=== PATIENT | male | born 1945 | race Caucasian/White ===

== ENCOUNTER 2018-11-04 22:39 | Inpatient (IN) | payer OTHER ==
--- NOTE | 2018-11-04 23:49 | PDOC ---
History of Present Illness - General Chief Complaint: Blood Sugar Problem Stated Complaint: DIABETIC Time Seen by Provider: 11/04/18 23:11 History Source: Family Exam Limitations: Other (AMS) - History of Present Illness Initial Comments: 11/04/18 23:48 Pt is a 73yo M with PMH of IDDM, Cirrhosis, Varicies, CHF, COPD, HTN presenting to ED with AMS and hyperglycemia today. Per son and step son (who were in [place] over the weekend) pt did not recognize them and seemed confused. They also noticed a tremor in the L hand. Sons say that pt is usually AOx3. They checked the blood sugar and it was over 400. Pt lives at home with a nurse in the unit who takes care of him. Pt is also coughing but that is baseline (pt still smokes). PMD: Lloyd? PMH: see hpi PSH: Meds: list given to EMS, however not provided here. Allergies: nkda Past History - Past Medical History Allergies/Adverse Reactions: Allergies Allergy/AdvReac Type Severity Reaction Status Date / Time No Known Allergies Allergy Verified 11/04/18 23:23 Home Medications: Ambulatory Orders Insulin (Levemir) [Levemir Flexpen -] 20 units SQ HS #30 pen 05/22/14 Furosemide [Lasix -] 40 mg PO DAILY 05/28/14 Amlodipine Besylate [Norvasc -] 5 mg PO DAILY 09/06/14 Insulin Lispro [Humalog] 6 unit SQ AC 09/06/14 Nadolol [Corgard -] 40 mg PO TID 09/06/14 Neomycin Sulfate 300 mg PO QID 09/06/14 Ramipril 5 mg PO DAILY 09/06/14 Spironolactone 50 mg PO BID 09/06/14 Zolpidem Tartrate [Ambien] 5 mg PO HS 09/06/14 Gentamicin [Gentamicin 100 mg Premixed Ivpb] 140 mg IV DAILY 7 Days ml Anemia: Yes Asthma: No Cancer: No Cardiac Disorders: Yes (H/O FL) CVA: No COPD: Yes (EMPHYSEMA) CHF: No Dementia: No Diabetes: Yes (NIDDM) GI Disorders: Yes (ESOPHAGEAL VARICES) Disorders: (ESBL IN URINE) HTN: No Hypercholesterolemia: No Liver Disease: Yes (CIRRHOSIS) Seizures: No Thyroid Disease: No - Surgical History Abdominal Surgery: Yes (ESOPHAGEAL SX, HERNIA) Appendectomy: No Cardiac Surgery: No Cholecystectomy: No Lung Surgery: No Neurologic Surgery: No Orthopedic Surgery: No - Immunization History Immunization Up to Date: Yes - Suicide/Smoking/Psychosocial Hx Smoking Status: Yes Smoking History: Never smoked Have you smoked in the past 12 months: No Number of Cigarettes Smoked Daily: 10 If you are a former smoker, when did you quit?: smokes daily Information on smoking cessation initiated: No 'Breaking Loose' booklet given: 09/07/14 Hx Alcohol Use: No Drug/Substance Use Hx: No Substance Use Type: Alcohol Hx Substance Use Treatment: (STAFF UNSURE) Review of Systems - Review of Systems Able to Perform ROS?: No *Physical Exam - Vital Signs Last Vital Signs Temp Pulse Resp BP Pulse Ox 98.1 F 62 18 112/60 98 11/04/18 22:39 11/04/18 22:39 11/04/18 22:39 11/04/18 22:39 11/04/18 22:39 - Physical Exam General Appearance: Yes: Nourished, Appropriately Dressed, Disheveled. No: Apparent Distress HEENT: positive: EOMI, JASSI, Normal ENT Inspection, Other (edentulous) Neck: positive: Trachea midline, Supple. negative: Lymphadenopathy (R), Lymphadenopathy (L) Respiratory/Chest: positive: Lungs Clear, Normal Breath Sounds. negative: Crackles, Wheezing Cardiovascular: positive: Regular Rhythm, Regular Rate, S1, S2. negative: Edema , JVD, Murmur Vascular Pulses: Carotid (R): 2+, Carotid (L): 2+, Dorsalis-Pedis (R): 2+, Doralis-Pedis (L): 0 Gastrointestinal/Abdominal: positive: Normal Bowel Sounds, Soft. negative: Tender, Protuberent, Distended, Guarding, Rebound, Tenderness, Mass Musculoskeletal: negative: CVA Tenderness Extremity: positive: Normal Capillary Refill. negative: Swelling, Calf Tenderness Integumentary: positive: Normal Color, Dry, Warm Neurologic: positive: on air host II-XII NML intact, Alert, Normal Mood/Affect, Normal Response, Motor Strength 5/5, Other (L hand tremor). negative: Fully Oriented ED Treatment Course - LABORATORY CBC & Chemistry Diagram: 11/04/18 23:50 11/04/18 23:50 - ADDITIONAL ORDERS Additional order review: Laboratory Results 11/04/18 23:15 POC Glucometer 375 11/04/18 23:15 POC Glucometer 375 - RADIOLOGY Radiology Studies Ordered: Category Date Time Status HEAD CT WITHOUT CONTRAST [CT] Stat CT Scan 11/04/18 23:47 Ordered Medical Decision Making - Medical Decision Making 11/05/18 00:59 Pt is a 73yo M with PMH of IDDM, Cirrhosis, Varicies, CHF, COPD, HTN presenting to ED with AMS and hyperglycemia today. Per son and step son (who were in [place] over the weekend) pt did not recognize them and seemed confused. They also noticed a tremor in the L hand. Sons say that pt is usually AOx3. They checked the blood sugar and it was over 400. Pt lives at home with a nurse in the unit who takes care of him. Pt is also coughing but that is baseline (pt still smokes). vitals: wnl PE: ddx includes but not limited to DKA, HHS, HHNK, hepatic encephalopathy, uti, sepsis, metabolic/electrolyte abnormality FSG- 300s -labs, ammonia, acetone -EKG, CT head ekg: LBBB similar to prior ekg 2015. CT head: no acute pathology labs significant for Laboratory Tests 11/04/18 11/04/18 11/04/18 23:50 23:50 23:50 Hgb 10.9 L (baseline) INR Sodium 134 L Creatinine 1.8 H (baseline) Random Glucose 390 H* Total Bilirubin 2.9 H (baseline) Alkaline Phosphatase 234 H Ammonia 139.50 H 11/04/18 23:50 Hgb INR 1.22 H Sodium Creatinine Random Glucose Total Bilirubin Alkaline Phosphatase Ammonia 11/05/18 03:45 Will give insulin 4SQ lactulose. admitted med/surg for hepatic encephalopathy 11/05/18 03:47 *DC/Admit/Observation/Transfer Diagnosis at time of Disposition: Hepatic encephalopathy, Hyperglycemia Altered mental status Qualifiers: Altered mental status type: disorientation Qualified Code(s): R41.0 - Disorientation, unspecified - Discharge Dispostion Condition at time of disposition: Good - Referrals - Patient Instructions - Post Discharge Activity
[2018-11-04 23:59] LABS: BASO % 0.8 % (0-2.0); EOS % 4.1 % (0-4.5); HEMOGLOBIN 10.9 GM/dL (11.7-16.9); LYMPH % 26.2 % (8-40); MCHC 35.1 g/dl (32.0-35.9); MEAN CELL VOLUME 99.6 fl (80-96); MEAN PLT VOLUME 8.6 fl (7.5-11.1); NEUT % 58.9 % (42.8-82.8); PLATELET COUNT 103 K/MM3 (134-434); RBC 3.12 M/mm3 (4.00-5.60); WHITE BLOOD COUNT 5.7 K/mm3 (4.0-10.0)
[2018-11-05 00:21] LABS: INR 1.22 (0.83-1.09); PROTHROMBIN TIME (PATIENT) 14.4 SEC (9.7-13.0)
[2018-11-05 00:24] LABS: ACTIVATED PTT 35.8 SECONDS (25.2-36.5)
[2018-11-05 00:35] LABS: ALBUMIN 3.1 g/dl (3.4-5.0); ALK PHOS 234 U/L (45-117); ANION GAP 8 MMOL/L (8-16); BILIRUBIN,TOTAL 2.9 mg/dL (0.2-1); BLOOD UREA NITROGEN 40 mg/dL (7-18); CALCIUM 8.9 mg/dL (8.5-10.1); CHLORIDE 106 mmol/L (98-107); CO2 19 mmol/L (21-32); CREATININE 1.8 mg/dL (0.55-1.3); MAGNESIUM 1.9 mg/dL (1.8-2.4); PHOSPHOROUS 2.9 mg/dL (2.5-4.9); SGOT/AST 26 U/L (15-37); SGPT/ALT 34 U/L (13-61); SODIUM 134 mmol/L (136-145); TOT PROT 6.5 g/dl (6.4-8.2)
[2018-11-05 00:39] LABS: GLUCOSE,RANDOM 390 mg/dL (74-106)
[2018-11-05] MEDS ORDERED: INSULIN REGULAR HUMAN 100 UNITS/ML *VIAL SQ ONE (00:47)
[2018-11-05] MEDS ORDERED: LACTULOSE 20 GM/30 ML UDC (FOR ORAL USE ONLY) PO ONE (00:47)
[2018-11-05] MEDS ORDERED: INSULIN REGULAR HUMAN 100 UNITS/ML *VIAL ONE (00:57)
[2018-11-05] MEDS ORDERED: LACTULOSE 20 GM/30 ML UDC (FOR ORAL USE ONLY) ONE ×2 (00:57→14:56)
[2018-11-05 01:01] LABS: ACETONE SERUM NEGATIVE (NEGATIVE)
--- NOTE | 2018-11-05 01:04 | PDOC ---
Attending Attestation - Resident Resident Name: KinzaShruthi - ED Attending Attestation I have performed the following: I have examined & evaluated the patient, The case was reviewed & discussed with the resident, I agree w/resident's findings & plan, Exceptions are as noted - HPI HPI: 73 yo M history DM, cirrhosis, CHF, COPD, HTN presents with hyperglycemia and AMS. As per family at bedside, he did not recognize them when they came to visit from [place], which is not his baseline. He has been confused. - Physicial Exam PE: GENERAL: Awake, alert, in no acute distress. Confused HEAD: No signs of trauma EYES: PERRLA, EOMI, sclera anicteric, conjunctiva clear ENT: Auricles normal inspection, hearing grossly normal, nares patent, oropharynx clear without exudates. Moist mucosa NECK: Normal ROM, supple, no lymphadenopathy, JVD, or masses LUNGS: Breath sounds equal, clear to auscultation bilaterally. No wheezes, and no crackles HEART: Regular rate and rhythm, normal S1 and S2, no murmurs, rubs or gallops ABDOMEN: Soft, nontender, normoactive bowel sounds. No guarding, no rebound. No masses EXTREMITIES: Normal range of motion, no edema. No clubbing or cyanosis. No cords, erythema, or tenderness NEUROLOGICAL: Cranial nerves II through XII grossly intact. Speech is clear, but answers questions inappropriately. Motor and sensation intact SKIN: Warm, Dry, normal turgor, no rashes or lesions noted. - Medical Decision Making Pt found to have significantly elevated ammonia and hyperglycemia. Will treat with insulin and lactulose. Admit for hepatic encephalopathy.
--- NOTE | 2018-11-05 02:15 | PN ---
Teaching Attending Note Name of Resident: Joby Sykes ATTENDING PHYSICIAN STATEMENT I saw and evaluated the patient. I reviewed the resident's note and discussed the case with the resident. I agree with the resident's findings and plan as documented. SUBJECTIVE: Patient is a 73 year old man with PMH of Insulin-treated DM, CAD, Tobacco use, ESBL UTI, Liver Cirrhosis, Esophageal Varices, CHF, COPD and HTN presenting to ER with AMS and hyperglycemia today. Per son and step son (who were in [place] over the weekend) he did not recognize them and seemed confused. They also noticed a tremor in the left hand. Sons say that he is usually alert and oriented x 3. They checked the blood sugar and it was over 400. Patient lives at home with a nurse in the unit who takes care of him. No recent history of fever, chills, headache, chest pain, dysuria or sick contacts. OBJECTIVE: Alert and confused Vital Signs Period Temp Pulse Resp BP Sys/Block Pulse Ox Last 24 Hr 98.1 F 62 18 112/60 98 HEENT: No Jaundice, eye redness or discharge, PERRLA, EOMI. Normocephalic, atraumatic. External ears are normal; hearing is grossly impaired. Poor dentition. No nasal discharge. Neck: Supple, nontender. No palpable adenopathy or thyromegaly. No JVD Chest: Good effort. Clear to auscultation and percussion. Heart: Regular. No S3, rub or murmur Abdomen: Obese, not distended, soft, nontender and no HSM. No rebound or guarding. Normal bowel sounds. Ext: Peripheral pulses intact. No leg edema. Skin: Warm and dry. No petechiae or rash. Ecchymosis right forearm. Neuro: Alert. Oriented to person. Confused. Tremulous. CN 2-12 grossly intact. Sensation grossly intact in all four extremities and DTR are symmetric. Unsteady gait. Psych: Appropriate mood and flat affect. Good insight. Home Medications Medication Instructions Recorded Insulin (Levemir) [Levemir Flexpen 20 units SQ HS #30 pen 05/22/14 -] Furosemide [Lasix -] 40 mg PO DAILY 05/28/14 Amlodipine Besylate [Norvasc -] 5 mg PO DAILY 09/06/14 Insulin Lispro [Humalog] 6 unit SQ AC 09/06/14 Nadolol [Corgard -] 40 mg PO TID 09/06/14 Neomycin Sulfate 300 mg PO QID 09/06/14 Ramipril 5 mg PO DAILY 09/06/14 Spironolactone 50 mg PO BID 09/06/14 Zolpidem Tartrate [Ambien] 5 mg PO HS 09/06/14 Gentamicin [Gentamicin 100 mg 140 mg IV DAILY 7 Days ml 09/15/14 Premixed Ivpb] Abnormal Lab Results 11/04/18 11/04/18 11/04/18 23:50 23:50 23:50 RBC 3.12 L Hgb 10.9 L Hct 31.0 L D MCV 99.6 H MCH 35.0 H Plt Count 103 L PT with INR INR Sodium 134 L Carbon Dioxide 19 L BUN 40 H Creatinine 1.8 H Random Glucose 390 H* Total Bilirubin 2.9 H Alkaline Phosphatase 234 H Ammonia 139.50 H Albumin 3.1 L 11/04/18 23:50 RBC Hgb Hct MCV MCH Plt Count PT with INR 14.40 H INR 1.22 H Sodium Carbon Dioxide BUN Creatinine Random Glucose Total Bilirubin Alkaline Phosphatase Ammonia Albumin ASSESSMENT AND PLAN: 1. Hepatic encephalopathy - No obvious precipitating factor. Urinalysis pending. No acute pathology on head CT and CXR shows increased right perihilar interstitial markings (old). Anemia and low platelets are likely sequelae of chronic liver disease. Monitor platelets. EKG shows NSR with first degree AV block and LBBB. Will treat with lactulose 45 ml po q 6 hours and rifaixmin 550 mg po bid. Will implement fall precautions, trend LFTs, monitor electrolytes and avoid dehydration. 2. Hypoalbuminemia - Possibly due to combined effects of malnutrition and inflammation associated with comorbid chronic conditions. Will rule out proteinuria. Will ensure adequate dietary protein intake and also consult information systems coordinator. 3. Uncontrolled DM Not in DKA. Patient got one dose of IV regular insulin in the ER. Will hold the home diabetes drugs and implement sliding scale insulin regimen. Provide comprehensive diabetes care with patient teaching and counseling about the importance of adherence to prescribed diabetes regimen, euglycemia, eye care and foot care. 4. Tobacco Use Counseled on risks associated with tobacco use. We will provide patient all the necessary assistance to facilitate smoking cessation and prescribe Nicotine patch. 5. CKD? - He has risk factors for CKD, but may also have a component of hepatorenal syndrome. Will get urinalysis, phosphate, PTH and kidney sonogram. Consult nephrology and avoid nephrotoxic agents such as NSAIDS, aminoglycosides , contrast dyes and certain Alternative medicine products. 6. Anemia with high MCV - High MCV may signal recent alcohol intake. Anemia likely multifactorial. Do basic anemia work up including serial stool guaiacs, reticulocyte count, iron studies, Vitamin B12 and folate levels. 7. Obesity Counseled on the risks associated with obesity. Will provide patient all the necessary assistance, counseling and positive reinforcement to facilitate weight loss. Consult information systems coordinator. 8. Hypertension - Will restart outpatient antihypertensive drugs when clinically appropriate. Has low normal BP. Nonpharmacologic measures to control hypertension like weight loss, salt restriction and exercise discussed. 9. DVT prophylaxis - Heparin 5000u sq tid. (Monitor platelets daily). 10. Advance directives - Full code
[2018-11-05] MEDS ORDERED: LACTULOSE 20 GM/30 ML UDC (FOR ORAL USE ONLY) PO PRN ×2 (02:49→09:27)
--- NOTE | 2018-11-05 02:49 | HP ---
CHIEF COMPLAINT: AMS PCP: HISTORY OF PRESENT ILLNESS: Patient is a 73 y/o M w/ PMHx IDDM, cirrhosis, varices, CHF, COPD, HTN, prior episodes of hepatic encephalopathy and UTI, found by son and step-son to be altered (baseline is A&Ox3), additionally hyperglycemic to 400s on home fingerstick, and observed to have tremor in L hand. Confused and disoriented on presentation. Unable to provide further history. Labs significant for glucose 390, Cr 1.8, T bilirubin 2.9, alk phos 234, NH4 139.5. HCT unremarkable, EKG with LBBB unchanged from prior in 2014. ER course was notable for: (1) glucose 390, Cr 1.8, T bilirubin 2.9, alk phos 234, NH4 139.5 (2) HCT unremarkable (3) Recent Travel: PAST MEDICAL HISTORY: As per HPI PAST SURGICAL HISTORY: unknown Social History: Smoking: Pt cannot provide history Alcohol: Pt cannot provide history Drugs: Pt cannot provide history Family History: Allergies No Known Allergies Allergy (Verified 11/04/18 23:23) HOME MEDICATIONS: Home Medications Medication Instructions Recorded Insulin (Levemir) [Levemir Flexpen 20 units SQ HS #30 pen 05/22/14 -] Furosemide [Lasix -] 40 mg PO DAILY 05/28/14 Amlodipine Besylate [Norvasc -] 5 mg PO DAILY 09/06/14 Insulin Lispro [Humalog] 6 unit SQ AC 09/06/14 Nadolol [Corgard -] 40 mg PO TID 09/06/14 Neomycin Sulfate 300 mg PO QID 09/06/14 Ramipril 5 mg PO DAILY 09/06/14 Spironolactone 50 mg PO BID 09/06/14 Zolpidem Tartrate [Ambien] 5 mg PO HS 09/06/14 Gentamicin [Gentamicin 100 mg 140 mg IV DAILY 7 Days ml 09/15/14 Premixed Ivpb] REVIEW OF SYSTEMS As per [facility] PHYSICAL EXAMINATION Vital Signs - 24 hr 11/04/18 22:39 Temperature 98.1 F Pulse Rate 62 Respiratory 18 Rate Blood Pressure 112/60 O2 Sat by Pulse 98 Oximetry (%) GENERAL: Alert, oriented only to name HEENT: NC/AT, PERRLA, EOMI, MMM NECK: Trachea midline, full range of motion, supple. LUNGS: coarse breathing HEART: RRR no m/r/g ABDOMEN: +bs, soft, NT, ND EXTREMITIES: 2+ pulses, warm, well-perfused, no edema. NEUROLOGICAL: spontaneous fluid movement of 4 extremities, +asterixis b/l PSYCH: Confused SKIN: Warm, dry, normal turgor, mild diffuse jaundice, numerous purpura over extremities Laboratory Results - last 24 hr 11/04/18 11/04/18 11/04/18 23:15 23:50 23:50 WBC 5.7 RBC 3.12 L Hgb 10.9 L Hct 31.0 L D MCV 99.6 H MCH 35.0 H MCHC 35.1 RDW 15.0 Plt Count 103 L MPV 8.6 Absolute Neuts (auto) 3.3 Neutrophils % 58.9 Lymphocytes % 26.2 D Monocytes % 10.0 Eosinophils % 4.1 Basophils % 0.8 D Nucleated RBC % 0 PT with INR INR PTT (Actin FS) Sodium 134 L Potassium 5.0 Chloride 106 Carbon Dioxide 19 L Anion Gap 8 BUN 40 H Creatinine 1.8 H Creat Clearance w eGFR 37.27 POC Glucometer 375 Random Glucose 390 H* Calcium 8.9 Phosphorus 2.9 Magnesium 1.9 Total Bilirubin 2.9 H AST 26 ALT 34 Alkaline Phosphatase 234 H Ammonia Creatine Kinase 100 Troponin I < 0.02 Total Protein 6.5 Albumin 3.1 L Acetone, Qual Negative 11/04/18 11/04/18 23:50 23:50 WBC RBC Hgb Hct MCV MCH MCHC RDW Plt Count MPV Absolute Neuts (auto) Neutrophils % Lymphocytes % Monocytes % Eosinophils % Basophils % Nucleated RBC % PT with INR 14.40 H INR 1.22 H PTT (Actin FS) 35.8 Sodium Potassium Chloride Carbon Dioxide Anion Gap BUN Creatinine Creat Clearance w eGFR POC Glucometer Random Glucose Calcium Phosphorus Magnesium Total Bilirubin AST ALT Alkaline Phosphatase Ammonia 139.50 H Creatine Kinase Troponin I Total Protein Albumin Acetone, Qual ASSESSMENT/PLAN: 73 y/o M w/ PMHx IDDM, cirrhosis, varices, CHF, COPD, HTN, prior episodes of hepatic encephalopathy and UTI, p/w AMS, hyperglycemia, stigmata of hepatic encephalopathy -HCT negative -Cr 1.8, was 1 to 2.4 in 2014, unclear if SOPHIE or CKD -lactulose/rifaximin in light of hyperammonemia -f/u UA, may require Tx of UTI -resume home spironoloctone, nadolol, norvasc -hold home ramipril and lasix in light of Cr elevation -BGM, SSI -diabetic diet -no IVF -monitor BMP -admit to med/surg Visit type - Emergency Visit Emergency Visit: Yes ED Registration Date: 11/05/18 Care time: The patient presented to the Emergency Department on the above date and was hospitalized for further evaluation of their emergent condition. - New Patient This patient is new to me today: Yes Date on this admission: 11/05/18 - Critical Care Critical Care patient: No
[2018-11-05 06:36] LABS: BASO % 1.2 % (0-2.0); EOS % 5.3 % (0-4.5); HEMATOCRIT 30.7 % (35.4-49); HEMOGLOBIN 10.8 GM/dL (11.7-16.9); LYMPH % 29.3 % (8-40); MCHC 35.3 g/dl (32.0-35.9); MEAN CELL VOLUME 99.3 fl (80-96); MEAN PLT VOLUME 8.7 fl (7.5-11.1); MONO % 11.4 % (3.8-10.2); NEUT % 52.8 % (42.8-82.8); PLATELET COUNT 93 K/MM3 (134-434); RBC 3.09 M/mm3 (4.00-5.60); RDW 14.9 % (11.9-15.9); WHITE BLOOD COUNT 4.4 K/mm3 (4.0-10.0)
[2018-11-05] MEDS ORDERED: HEPARIN NA (PORCINE) 5,000 UNITS/ML 1ML VIAL ONE (06:53)
[2018-11-05] MEDS ORDERED: INSULIN (NOVOLOG) ASPART 100 UNITS/ML 10ML VIAL ONE ×5 (06:54→21:58)
[2018-11-05] MEDS: HEPARIN NA (PORCINE) 5,000 UNITS/ML 1ML VIAL SQ SCH ×3 (06:58→22:07)
[2018-11-05] MEDS: NADOLOL 40 MG TABLET (FP) PO SCH ×2 (06:58→14:00)
[2018-11-05] MEDS: INSULIN SLIDING SCALE (NOVOLOG) 1 VIAL SQ SCH ×4 (06:59→22:11)
[2018-11-05 07:09] LABS: ANION GAP 7 MMOL/L (8-16); BLOOD UREA NITROGEN 41 mg/dL (7-18); CHLORIDE 107 mmol/L (98-107); CO2 21 mmol/L (21-32); CREATININE 1.8 mg/dL (0.55-1.3); MAGNESIUM 1.9 mg/dL (1.8-2.4); PHOSPHOROUS 3.5 mg/dL (2.5-4.9); POTASSIUM 5.1 mmol/L (3.5-5.1); SODIUM 136 mmol/L (136-145)
[2018-11-05 07:13] LABS: GLUCOSE,RANDOM 339 mg/dL (74-106)
[2018-11-05] MEDS ORDERED: SPIRONOLACTONE 25 MG TABLET (FP) PO SCH (10:00)
[2018-11-05] MEDS ORDERED: amLODIPine BESYLATE 5 MG TABLET (FP) PO SCH (10:00)
[2018-11-05] MEDS ORDERED: amLODIPine BESYLATE 5 MG TABLET (FP) ONE (10:29)
[2018-11-05] MEDS: RIFAXIMIN 550 MG TABLET (UD) PO SCH ×2 (10:33→22:07)
--- NOTE | 2018-11-05 11:24 | EKG ---
Test Reason : Blood Pressure : / mmHG Vent. Rate : 065 BPM Atrial Rate : 065 BPM P-R Int : 198 ms QRS Dur : 148 ms QT Int : 432 ms P-R-T Axes : 032 023 072 degrees QTc Int : 449 ms SINUS RHYTHM WITH OCCASIONAL PREMATURE VENTRICULAR COMPLEXES LEFT BUNDLE BRANCH BLOCK ABNORMAL ECG Confirmed by MD MAXIMO, ZOEY ([id number]) on 11/05/2018 11:23:24 AM Referred By: Confirmed By:ZOEY MARSH MD
--- NOTE | 2018-11-05 11:25 | EKG ---
Test Reason : Blood Pressure : / mmHG Vent. Rate : 064 BPM Atrial Rate : 064 BPM P-R Int : 198 ms QRS Dur : 144 ms QT Int : 426 ms P-R-T Axes : -04 023 072 degrees QTc Int : 439 ms POOR DATA QUALITY, INTERPRETATION MAY BE ADVERSELY AFFECTED SINUS RHYTHM WITH 1ST DEGREE A-V BLOCK WITH OCCASIONAL PREMATURE VENTRICULAR COMPLEXES AND PREMATURE ATRIAL COMPLEXES LEFT BUNDLE BRANCH BLOCK ABNORMAL ECG Confirmed by MD MAXIMO, ZOEY ([id number]) on 11/05/2018 11:24:27 AM Referred By: Confirmed By:ZOEY MARSH MD
[2018-11-05] MEDS ORDERED: LACTULOSE 20 GM/30 ML UDC (FOR ORAL USE ONLY) PO SCH (14:00)
[2018-11-05] MEDS ORDERED: INSULIN (LEVEMIR) 100 UNITS/ML UNITS SQ ONE ×2 (15:30→17:32)
--- NOTE | 2018-11-05 15:30 | PN ---
Teaching Attending Note Name of Resident: Anne Penaloza ATTENDING PHYSICIAN STATEMENT I saw and evaluated the patient. I reviewed the resident's note and discussed the case with the resident. I agree with the resident's findings and plan as documented. SUBJECTIVE: No fever or chills. No STAFFORD. reports no abd pain. he feels he is still confused not back to base line. his speech is not normal yet. he reports one episode of melena 2 weeks ago. he reports being on diuretics and compliant with it. denies fever or chills. reports drinking occasionally /recreationally . no dysuria OBJECTIVE: NAD, awake, alert, cooperative, mildly slurred speech MMM. no JVD CV: RRR, 2/6 SM at RUSB with radiation to carotids. 2/6 SM At LLSB. Lungs: CTAB Ext: no edema. no fungal infection Abd: obese, soft, Nt, Nd , NL BS , no hepatomegaly. neuro; EOMI, round equal pupils, reactive to light. no facial droop, tongue and uvula at mid line. strength 5/5 in upper and lower extremities proximally and distally. reflexes 1+ knee jerk and 2+ biceps Rectal to be done by resident ASSESSMENT AND PLAN: 73 y/o man with h/o DM, cirrhosis, CAD, Tobacco use, ESBL UTI, Esophageal Varices, diastolic CHF, COPD and HTN who presented with AMS and hyperglycemia . 1- AMS: improved but still not at his base line. high in DDX is hepatic encephalopathy. family was not around and his compliance is questioned no signs of infection , SBP, or active bleeding. - cont lacultose for a goal of 3-4 BMs a day - check UA . - cont rifaximine started last night - if he does not return to his base line, then MRI of brain might be indicated 2- DM with hyperglycemia: reports taking 20 of lantus HS. did not receive any last night. will give 20 of levemir now then daily - to be instructed not to take q HS at dc - cont SSI 3- H/o Cirrhosis : due to alcohol use . no ascitis . No h/o paracentesis in past per patient - US reviewed. - not sure of has SOPHIE or CKD , hold diuretics pending Cr level form PCP office . lenin esume if Cr at base line - reports melena 2 weeks ago. no active bleed now. OB neg . - monitor Hb and perform iron studies /B12/folic - GI consult 4- H/o D CHF: last echo form 2013 reviewed. no signs of fluid overload. diuretics as above 5- Possible CKD: will obtain records for PCP . will resume diuretics if appropriate 6- DVT PX : heparin sq ofr now
[2018-11-05 16:12] LABS: PH,URINE 5.5 (5.0-8.0); URINE APPEARANCE CLEAR; URINE BILIRUBIN NEGATIVE (NEGATIVE); URINE COLOR YELLOW; URINE GLUCOSE (UA) 3+ (NEGATIVE); URINE KETONE NEGATIVE (NEGATIVE); URINE LEUK ESTERASE NEGATIVE (NEGATIVE); URINE NITRITE NEGATIVE (NEGATIVE); URINE PROTEIN NEGATIVE (NEGATIVE)
--- NOTE | 2018-11-05 16:49 | PN ---
Physical Exam: SUBJECTIVE: Patient seen and examined this AM. Patient recalls events that preceded admission--Recalls feeling confusion and elevated blood glucose. Admits this is the 1st time he has ever felt this. This AM, he feels better however his speech has not returned to baseline. Admits medication compliance. Denies any recent travel or sick contacts. Endorses chronic diarrhea. Denies any fevers, chills, chest pain, SOB, nausea vomiting, Abdominal pain. OBJECTIVE: Vital Signs Period Temp Pulse Resp BP Sys/Block Pulse Ox Last 24 Hr 97.4 F-98.2 F 62-68 16-18 112-138/48-79 96-99 GENERAL: A&Ox3, NAD HEAD: NCAT EYES: PERRL, EOMI, sclera anicteric ENT: moist mucous membranes. Hard of hearing NECK: Supple. LUNGS: Diminished breath sounds at the bases, no wheezes, no crackles HEART: Regular rate and rhythm, S1, S2. Aortic Stenosis murmur noted at the RUSB with mild radiation to the carotids ABDOMEN: Soft, Obese, nontender, nondistended, + bowel sounds, no guarding. EXTREMITIES: No edema. Clubbing noted at the finger tips. NEUROLOGICAL: Cranial nerves II through XII grossly intact. Mildly Slurred speech. Mild Asterixis L > R. Gross sensation intact throughout. 5/5 muscle strength globally. PSYCH: Normal mood, normal affect. SKIN: Warm, dry Laboratory Results - last 24 hr 11/04/18 11/04/18 11/04/18 23:15 23:50 23:50 WBC 5.7 RBC 3.12 L Hgb 10.9 L Hct 31.0 L D MCV 99.6 H MCH 35.0 H MCHC 35.1 RDW 15.0 Plt Count 103 L MPV 8.6 Absolute Neuts (auto) 3.3 Neutrophils % 58.9 Lymphocytes % 26.2 D Monocytes % 10.0 Eosinophils % 4.1 Basophils % 0.8 D Nucleated RBC % 0 PT with INR INR PTT (Actin FS) Sodium 134 L Potassium 5.0 Chloride 106 Carbon Dioxide 19 L Anion Gap 8 BUN 40 H Creatinine 1.8 H Creat Clearance w eGFR 37.27 POC Glucometer 375 Random Glucose 390 H* Hemoglobin A1c % Calcium 8.9 Phosphorus 2.9 Magnesium 1.9 Ferritin Total Bilirubin 2.9 H AST 26 ALT 34 Alkaline Phosphatase 234 H Ammonia Creatine Kinase 100 Troponin I < 0.02 Total Protein 6.5 Albumin 3.1 L Stool Occult Blood Acetone, Qual Negative 11/04/18 11/04/18 11/05/18 23:50 23:50 05:30 WBC 4.4 RBC 3.09 L Hgb 10.8 L Hct 30.7 L MCV 99.3 H MCH 35.0 H MCHC 35.3 RDW 14.9 Plt Count 93 L MPV 8.7 Absolute Neuts (auto) 2.3 Neutrophils % 52.8 Lymphocytes % 29.3 Monocytes % 11.4 H Eosinophils % 5.3 H Basophils % 1.2 Nucleated RBC % 0 PT with INR 14.40 H INR 1.22 H PTT (Actin FS) 35.8 Sodium Potassium Chloride Carbon Dioxide Anion Gap BUN Creatinine Creat Clearance w eGFR POC Glucometer Random Glucose Hemoglobin A1c % Calcium Phosphorus Magnesium Ferritin Total Bilirubin AST ALT Alkaline Phosphatase Ammonia 139.50 H Creatine Kinase Troponin I Total Protein Albumin Stool Occult Blood Acetone, Qual 11/05/18 11/05/18 11/05/18 05:30 05:30 06:51 WBC RBC Hgb Hct MCV MCH MCHC RDW Plt Count MPV Absolute Neuts (auto) Neutrophils % Lymphocytes % Monocytes % Eosinophils % Basophils % Nucleated RBC % PT with INR INR PTT (Actin FS) Sodium 136 Potassium 5.1 Chloride 107 Carbon Dioxide 21 Anion Gap 7 L BUN 41 H Creatinine 1.8 H Creat Clearance w eGFR 37.27 POC Glucometer 303 Random Glucose 339 H* Hemoglobin A1c % 9.5 H Calcium 9.0 Phosphorus 3.5 Magnesium 1.9 Ferritin Total Bilirubin AST ALT Alkaline Phosphatase Ammonia Creatine Kinase Troponin I Total Protein Albumin Stool Occult Blood Acetone, Qual 11/05/18 11/05/18 11/05/18 11:12 11:45 14:00 WBC RBC Hgb Hct MCV MCH MCHC RDW Plt Count MPV Absolute Neuts (auto) Neutrophils % Lymphocytes % Monocytes % Eosinophils % Basophils % Nucleated RBC % PT with INR INR PTT (Actin FS) Sodium Potassium Chloride Carbon Dioxide Anion Gap BUN Creatinine Creat Clearance w eGFR POC Glucometer 399 Random Glucose Hemoglobin A1c % Calcium Phosphorus Magnesium Ferritin 392.3 H Total Bilirubin AST ALT Alkaline Phosphatase Ammonia Creatine Kinase Troponin I Total Protein Albumin Stool Occult Blood Negative Acetone, Qual Active Medications Amlodipine Besylate (Norvasc -) 5 mg PO DAILY [facility] Last Admin: 11/05/18 10:33 Dose: 5 mg Heparin Sodium (Porcine) (Heparin -) 5,000 unit SQ TID [facility] Last Admin: 11/05/18 15:00 Dose: 5,000 unit Insulin Aspart (Novolog Vial Sliding Scale -) 1 vial SQ ACHS [facility]; Protocol Last Admin: 11/05/18 11:48 Dose: 10 unit Insulin Detemir (Levemir Vial) 20 units SQ AM [facility] Lactulose (Cephulac (Oral Use)) 20 gm PO TID [facility] Last Admin: 11/05/18 14:00 Dose: 20 gm Nadolol (Corgard -) 40 mg PO TID [facility] Last Admin: 11/05/18 14:00 Dose: 40 mg Nystatin (Nystop Powder -) 1 applic TP DAILY [facility] Rifaximin (Xifaxan -) 550 mg PO BID [facility] Last Admin: 11/05/18 10:33 Dose: 550 mg IMAGING: -CT Head without contrast: No evidence of acute intracranial hemorrhage, edema, midline shift, mass effect, or skull fracture. No CT evidence of acute territorial ischemic changes. Paranasal sinus disease. Opacified right mastoid air cells, mastoid antrum without bony destructive changes. -CXR: No evidence of active pulmonary disease. -Kidney/Renal/Abdominal US: Cholelithiasis. Somewhat small, heterogeneous and hyperechoic liver consistent with cirrhosis. Splenomegaly. Morphologically normal kidneys with no evidence of hydronephrosis or acute pathology. -EKG: Sinus rhythm with 1st degree AV Block, PVCs, PACs, LBBB, VR 64, QTc 439 ASSESSMENT/PLAN: 73 y/o M w/ PMHx IDDM, cirrhosis, varices, CHF, COPD, HTN, prior episodes of hepatic encephalopathy and UTI, is admitted for AMS. #AMS, improving -Consider components of hepatic encephalopathy; R/O Infection, Less likely due to hyperglycemia -AFebrile without tachycardia or leukocytosis -CXR, Head CT noted above; Will Check UA, Zinc level -Ammonia level elevated at 139.5 -Acetone Negative -Continue Lactulose 20gm PO TID--Titrate to 3-4 BM's/day -Continue Rifaximin 550mg PO BID -Will consider Brain MRI if worsening of neurological sx's #Macrocytic Anemia -Likely due to EtOh use -No signs of active bleeding -Will Check FOBT, Iron studies, B12, Folate #Thrombocytopenia -Platelet dysfunction in the setting of cirrhosis #Groin infection -Likely Fungal -Nystatin Powder daily #Hx of IDDM -BGMs ISS ACHS -Detemir 20u AM -A1c 9.5% -UA: 3+ Glucose #Hx of cirrhosis, varices -Has hx of EtOH abuse; Denies any hx of paracentesis--Now Being managed by [facility] -ABD US noted above -GI (Dr. Ortega) consulted #Hx of CHF -Currently not overloaded -Hold diuretics in the setting of elevated Cr #Hx of COPD #Hx of HTN -Continue Amlodipine 5mg daily, Nadolol 40mg TID -hold home dose ramipril and diuretics for now #CKD VS SOPHIE -Prior records in 2014 reveal cr 2.4 on discharge, Will contact PCP for more recent baseline labwork -Kidney/Renal US noted above #FEN -No Standing fluids -Lytes WNL -Diabetic diet #PPx -DVT: Heparin TID Visit type - Emergency Visit Emergency Visit: Yes ED Registration Date: 11/05/18 Care time: The patient presented to the Emergency Department on the above date and was hospitalized for further evaluation of their emergent condition. - New Patient This patient is new to me today: Yes Date on this admission: 11/05/18 - Critical Care Critical Care patient: No
[2018-11-05 17:04] VITALS: BMI 32.5
[2018-11-05] MEDS ORDERED: NEOMYCIN SO4 500 MG TABLET PO SCH (18:00)
--- NOTE | 2018-11-05 18:19 | CON.GI ---
Consult Consult Specialty:: GI Referred by:: Hospitalist Service Reason for Consultation:: Confusion - History of Present Illness Chief Complaint: "My sugars are high" History of Present Illness: 73M admitted for evaluation of confusion. Noted confused by family. Noted to have blood glucose 390 on admission. Ammonia was 139. He states being followed by rubber mill tender Dr. Newton Wynn for his liver disease. He has followed with him for multiple years as noted in consult from 2013. He has performed multiple upper endoscopies with variceal band ligation secondary to esophageal varices. Mr. Marie states that he last saw Dr. Wynn a couple of weeks ago an that he had recent upper endoscopy for evaluation of his varices ( states that banding was not necessary). Melena 2 weeks ago was described in today's medical progress note however Mr. Marie currently denies this. Stool specimen sent from ER was guaiac negative. He states that his blood glucose has been "ridiculous" lately. He denies abdominal pain. He describes loose BM' s intermittently. No fever noted and he denies chills. + increased urinary frequency. Abdominal US failed to reveal ascites, revealed gallstones, non- dilated biliary tract and hepatopedal flow in the portal vein. He has alcoholic cirrhosis and states that he now only drinks "on special occasions". He states that his hearing has worsened over the last 4 months. Describes complaince with home medications - History Source History Provided By: Patient, Medical Record Limitations to Obtaining History: Poor Historian - Past Medical History Cardio/Vascular: Yes: CHF, HTN. No: AFIB, CAD Pulmonary: Yes: COPD Gastrointestinal: Yes: Esophageal Varices Hepatobiliary: Yes: Cirrhosis (Alcohol induced) Renal/: Yes: BPH Infectious Disease: Yes: Other (pneumonia) Endocrine: Yes: Diabetes Mellitus - Past Surgical History Past Surgical History: Yes: Hernia Repair, Upper Endoscopy Additional Surgical History: Non descended testicle repair - Alcohol/Substance Use Hx Alcohol Use: Yes (former alcoholic) History of Substance Use: reports: None, Cocaine (ex intranasal cocaine use) - Smoking History Smoking history: Former smoker Have you smoked in the past 12 months: No Aproximately how many cigarettes per day: 10 If you are a former smoker, when did you quit?: smokes daily - Social History Usual Living Arrangement: Alone ADL: Independent Occupation: son lives upstairs Place of : [facility] History of Recent Travel: No Home Medications - Allergies Allergies/Adverse Reactions: Allergies Allergy/AdvReac Type Severity Reaction Status Date / Time No Known Allergies Allergy Verified 11/04/18 23:23 - Home Medications Home Medications: Ambulatory Orders Insulin (Levemir) [Levemir Flexpen -] 20 units SQ HS #30 pen 05/22/14 Furosemide [Lasix -] 40 mg PO BID 05/28/14 Insulin Lispro [Humalog] 6 - 8 unit SQ AC 09/06/14 Nadolol [Corgard -] 40 mg PO TID 09/06/14 Neomycin Sulfate 500 mg PO QID 09/06/14 Ramipril 5 mg PO DAILY 09/06/14 Spironolactone 50 mg PO BID 09/06/14 Omeprazole 20 mg PO DAILY 11/05/18 Tamsulosin HCl [Flomax] 0.4 mg PO HS 11/05/18 Zolpidem Tartrate [Ambien] 10 mg PO HS 11/05/18 Family Disease History - Family Disease History Other Family History: Denies history of liver disease, colorectal cancer or other GI malignancy Review of Systems - Review of Systems Constitutional: denies: Chills, Unintentional Wgt. Loss HENT: reports: Hearing Loss Cardiovascular: denies: Chest Pain Respiratory: denies: Cough, SOB Gastrointestinal: denies: Abdominal Pain, Constipation, Diarrhea, Melena, Nausea , Rectal Bleeding, Vomiting, Vomiting Blood Genitourinary: reports: Frequency Neurological: reports: Confusion Physical Exam-GI Vital Signs: Vital Signs Temperature 98.3 F 11/05/18 16:59 Pulse Rate 68 11/05/18 16:59 Respiratory Rate 20 11/05/18 16:59 Blood Pressure 126/53 L 11/05/18 16:59 O2 Sat by Pulse Oximetry (%) 96 11/05/18 17:37 Constitutional: Yes: Calm Eyes: No: Sclera Icterus Cardiovascular: Yes: Regular Rate and Rhythm. No: Murmur Respiratory: Yes: CTA Bilaterally Gastrointestinal Inspection: No: Distention ...Auscultate: Yes: Normoactive Bowel Sounds ...Palpate: Yes: Soft. No: Hepatomegaly, Splenomegaly, Tenderness ...Percussion: No: Tympanitic ...Rectal Exam: Yes: Other (No external lesions, no masses, formed soft light alvarez stool in rectal vault, guaiac negative) Edema: No (No LE edema) Neurological: Yes: Alert, Oriented (x person, place ( and to time. hesitated but was able to answer the proper month and year)), [facility] Labs: INR, PTT INR 1.22 (0.83-1.09) H 11/04/18 23:50 CBC, BMP 11/05/18 05:30 11/05/18 05:30 INR, PTT INR 1.22 (0.83-1.09) H 11/04/18 23:50 Hepatic Panel Total Bilirubin 2.9 mg/dL (0.2-1) H 11/04/18 23:50 AST 26 U/L (15-37) 11/04/18 23:50 ALT 34 U/L (13-61) 11/04/18 23:50 Alkaline Phosphatase 234 U/L (45-117) H 11/04/18 23:50 Albumin 3.1 g/dl (3.4-5.0) L 11/04/18 23:50 Imaging - Results Ultrasound: Report Reviewed Problem List - Problems (1) Hepatic encephalopathy Assessment/Plan: Suspect hyperglycemia leading to dehydration playing a role in triggering of hepatic encephalopathy. No signs of infection, no ascites on US and chronic anemia without significant bleeding history. States being compliant with current med regimen. Advise: - Increasing lactulose to 20g q6 hrs. Titrate for 4-5 loose BM's per day - I discontinued neomycin, particularly in the setting of worsening hearing difficulties over the last few months and potential for nephrotoxicity. Ordered Rifaximin 550mg PO BID as alternative and currently more favored treatment given more favorable side effect profile - Gentle IV hydration. Diuretics have been held. - Obtain for information from his primary rubber mill tender and arrange follow- up prior to discharge. Will need to clarify the dosages of his current medications including Nadolol. Nadolol is usually dosed daily given long 1/2 life. Would continue it at daily dosing. - Monitor mental status / Daily ammonia level - Aspiration precautions Discussed the above with patient's sales and marketing intern Dr. Penaloza Code(s): K72.90 - HEPATIC FAILURE, UNSPECIFIED WITHOUT COMA
[2018-11-05] MEDS: SODIUM CHLORIDE 1,000 ML IV SCH (20:24)
[2018-11-05] MEDS ORDERED: RIFAXIMIN 550 MG TABLET (UD) PO SCH (22:00)
[2018-11-05] MEDS: LACTULOSE 20 GM/30 ML UDC (FOR ORAL USE ONLY) PO SCH (22:07)
[2018-11-06 04:13] LABS: SERUM IRON SATURATION 93 % (15-55); TOTAL IRON BINDING CAPACITY 277 ug/dL (250-450); UIBC 19 ug/dL (111-343)
[2018-11-06] MEDS: INSULIN SLIDING SCALE (NOVOLOG) 1 VIAL SQ SCH ×3 (06:15→16:23)
[2018-11-06] MEDS: HEPARIN NA (PORCINE) 5,000 UNITS/ML 1ML VIAL SQ SCH (06:25)
[2018-11-06] MEDS: INSULIN (LEVEMIR) 100 UNITS/ML UNITS SQ SCH (06:26)
[2018-11-06] MEDS ORDERED: PT OWN MED DRAWER 7, Y5N ONE ×2 (06:36→10:03)
[2018-11-06] MEDS ORDERED: INSULIN (LEVEMIR) 100 UNITS/ML UNITS SQ SCH ×2 (07:00→22:00)
[2018-11-06 07:13] LABS: BASO % 0.8 % (0-2.0); EOS % 3.6 % (0-4.5); HEMATOCRIT 30.1 % (35.4-49); HEMOGLOBIN 10.6 GM/dL (11.7-16.9); LYMPH % 13.4 % (8-40); MCH 34.6 pg (25.7-33.7); MCHC 35.1 g/dl (32.0-35.9); MEAN CELL VOLUME 98.5 fl (80-96); MEAN PLT VOLUME 8.3 fl (7.5-11.1); MONO % 8.3 % (3.8-10.2); NEUT % 73.9 % (42.8-82.8); PLATELET COUNT 79 K/MM3 (134-434); RBC 3.06 M/mm3 (4.00-5.60); RDW 14.7 % (11.9-15.9); WHITE BLOOD COUNT 4.9 K/mm3 (4.0-10.0)
[2018-11-06 08:23] LABS: ALK PHOS 181 U/L (45-117); ANION GAP 9 MMOL/L (8-16); BILIRUBIN,TOTAL 4.2 mg/dL (0.2-1); BLOOD UREA NITROGEN 34 mg/dL (7-18); CALCIUM 8.9 mg/dL (8.5-10.1); CHLORIDE 115 mmol/L (98-107); CO2 20 mmol/L (21-32); CREATININE 1.7 mg/dL (0.55-1.3); GLUCOSE,RANDOM 251 mg/dL (74-106); PHOSPHOROUS 3.5 mg/dL (2.5-4.9); POTASSIUM 5.4 mmol/L (3.5-5.1); SGOT/AST 30 U/L (15-37); SGPT/ALT 35 U/L (13-61); SODIUM 143 mmol/L (136-145); TOT PROT 6.2 g/dl (6.4-8.2)
--- NOTE | 2018-11-06 09:10 | PN ---
Physical Exam: SUBJECTIVE: Patient seen and examined this AM. Says he feels much better since yesterday. No acute events overnight as per nursing. Patient has no new complaints. Feels his mental status has returned to baseline. Recent labwork (10/15) reveals Cr 1.56, BUN 42, Glucose 544, Na 133, TBili 2.7, ALP 272, Hgb 10.3, Hct 31.5, PLT 83, AFP 3.5. Denies fevers, chills, chest pain, SOB, nausea vomiting, Abdominal pain. OBJECTIVE: Vital Signs Period Temp Pulse Resp BP Sys/Block Pulse Ox Last 24 Hr 98.2 F-98.7 F 66-72 16-20 110-139/48-79 96-99 GENERAL: A&Ox3, NAD HEAD: NCAT EYES: PERRL, EOMI, sclera anicteric ENT: moist mucous membranes. Hard of hearing NECK: Supple. LUNGS: Diminished breath sounds at the bases, no wheezes, no crackles HEART: Regular rate and rhythm, S1, S2. Aortic Stenosis murmur noted at the RUSB with mild radiation to the carotids ABDOMEN: Soft, Obese, nontender, nondistended, + bowel sounds, no guarding. EXTREMITIES: No edema. Clubbing noted at the finger tips. NEUROLOGICAL: Cranial nerves II through XII grossly intact. Mildly Slurred speech. Gross sensation intact throughout. 5/5 muscle strength globally. PSYCH: Normal mood, normal affect. SKIN: Warm, dry Laboratory Results - last 24 hr 11/05/18 11/06/18 11/06/18 22:05 06:11 06:30 WBC 4.9 RBC 3.06 L Hgb 10.6 L Hct 30.1 L MCV 98.5 H MCH 34.6 H MCHC 35.1 RDW 14.7 Plt Count 79 L MPV 8.3 Absolute Neuts (auto) 3.6 Neutrophils % 73.9 D Lymphocytes % 13.4 D Monocytes % 8.3 Eosinophils % 3.6 Basophils % 0.8 Nucleated RBC % 0 Sodium Potassium Chloride Carbon Dioxide Anion Gap BUN Creatinine Creat Clearance w eGFR POC Glucometer 355 222 Random Glucose Hemoglobin A1c % Calcium Phosphorus Magnesium Iron TIBC Iron Saturation Ferritin Total Bilirubin AST ALT Alkaline Phosphatase Ammonia Total Protein Albumin Urine Color Urine Appearance Urine pH Ur Specific Foley Urine Protein Urine Glucose (UA) Urine Ketones Urine Blood Urine Nitrite Urine Bilirubin Urine Urobilinogen Ur Leukocyte Esterase Stool Occult Blood 11/06/18 11/06/18 06:30 06:30 WBC RBC Hgb Hct MCV MCH MCHC RDW Plt Count MPV Absolute Neuts (auto) Neutrophils % Lymphocytes % Monocytes % Eosinophils % Basophils % Nucleated RBC % Sodium 143 Potassium 5.4 H Chloride 115 H Carbon Dioxide 20 L Anion Gap 9 BUN 34 H Creatinine 1.7 H Creat Clearance w eGFR 39.82 POC Glucometer Random Glucose 251 H Hemoglobin A1c % Calcium 8.9 Phosphorus 3.5 Magnesium 2.0 Iron TIBC Iron Saturation Ferritin Total Bilirubin 4.2 H AST 30 ALT 35 Alkaline Phosphatase 181 H Ammonia 26.10 Total Protein 6.2 L Albumin 3.0 L Urine Color Urine Appearance Urine pH Ur Specific Foley Urine Protein Urine Glucose (UA) Urine Ketones Urine Blood Urine Nitrite Urine Bilirubin Urine Urobilinogen Ur Leukocyte Esterase Stool Occult Blood Active Medications Heparin Sodium (Porcine) (Heparin -) 5,000 unit SQ TID [facility] Last Admin: 11/06/18 06:25 Dose: 5,000 unit Sodium Chloride (Normal Saline -) 1,000 mls @ 42 mls/hr IV ASDIR [facility] Last Admin: 11/05/18 20:24 Dose: 42 mls/hr Insulin Aspart (Novolog Vial Sliding Scale -) 1 vial SQ ACHS [facility]; Protocol Last Admin: 11/06/18 06:15 Dose: 4 unit Insulin Detemir (Levemir Vial) 20 units SQ AM [facility] Last Admin: 11/06/18 06:26 Dose: 20 units Lactulose (Cephulac (Oral Use)) 20 gm PO QID [facility] Last Admin: 11/05/18 22:07 Dose: 20 gm Nadolol (Corgard -) 80 mg PO DAILY [facility] Nystatin (Nystop Powder -) 1 applic TP DAILY [facility] Rifaximin (Xifaxan -) 550 mg PO BID [facility] Last Admin: 11/05/18 22:07 Dose: 550 mg IMAGING: -CT Head without contrast: No evidence of acute intracranial hemorrhage, edema, midline shift, mass effect, or skull fracture. No CT evidence of acute territorial ischemic changes. Paranasal sinus disease. Opacified right mastoid air cells, mastoid antrum without bony destructive changes. -CXR: No evidence of active pulmonary disease. -Kidney/Renal/Abdominal US: Cholelithiasis. Somewhat small, heterogeneous and hyperechoic liver consistent with cirrhosis. Splenomegaly. Morphologically normal kidneys with no evidence of hydronephrosis or acute pathology. -EKG: Sinus rhythm with 1st degree AV Block, PVCs, PACs, LBBB, VR 64, QTc 439 ASSESSMENT/PLAN: 73 y/o M w/ PMHx IDDM, cirrhosis, varices, CHF, COPD, HTN, prior episodes of hepatic encephalopathy and UTI, is admitted for AMS. #AMS, improving -Consider components of hepatic encephalopathy vs hyperglycemia; Unlikely Infectious -Zinc level pending -Ammonia level improved -Lactulose 20gm PO O8T--Hzmwjsi to 4-5 BM's/day -Rifaximin 550mg PO BID -NS @ 42 mls/hr -Monitor mental status; Will consider Brain MRI if worsening of neurological sx' s or mental status -Aspiration precautions #Hyperbilirubinemia -In the setting of Cirrhosis -GGT, Direct Bilirubin noted above #Macrocytic Anemia -Likely due to EtOh use -Iron studies noted--Not iron deficient -Will Check B12, Folate #Thrombocytopenia -Platelet dysfunction in the setting of cirrhosis -No signs of active bleeding, Monitor #Groin infection -Nystatin Powder daily #Hx of IDDM -BGMs ISS TIDAC -Detemir 20u AM -Will Add detemir 10u HS #Hx of cirrhosis, varices -Has hx of EtOH abuse -GI (Dr. Ortega) consulted, appreciate rec's -Nadolol dosing changed to 80mg Daily as per GI Rec's #Hx of CHF, Not currently in exacerbation -Hold diuretics in the setting of elevated Cr #Hx of COPD, Not currently in exacerbation #Hx of HTN -Continue Nadolol at current dose -hold home dose ramipril and diuretics for now #SOPHIE -Recent labwork (10/15) reveals Cr 1.56 -Continue NS @ 42 mls/hr #FEN -NS @ 42 mls/hr -Lytes WNL -Diabetic diet #PPx -DVT: SCDs; Chemical AC held in the setting of downtrending PLTs Visit type - Emergency Visit Emergency Visit: Yes ED Registration Date: 11/05/18 Care time: The patient presented to the Emergency Department on the above date and was hospitalized for further evaluation of their emergent condition. - New Patient This patient is new to me today: No - Critical Care Critical Care patient: No - Discharge Referral Referred to [facility] No
[2018-11-06 09:14] LABS: BILIRUBIN,DIRECT 0.6 mg/dL (0.0-0.2); GAMMA GLUTAMYL TRANSPEPTIDASE 104 U/L (5-85)
--- NOTE | 2018-11-06 09:33 | PN ---
Teaching Attending Note Name of Resident: Anne Penaloza ATTENDING PHYSICIAN STATEMENT I saw and evaluated the patient. I reviewed the resident's note and discussed the case with the resident. I agree with the resident's findings and plan as documented. SUBJECTIVE: Patient is feeling better with no acute distress, no nausea or vomiting. AA0x3. OBJECTIVE: Vital Signs Temperature 98.7 F 11/06/18 08:22 Pulse Rate 70 11/06/18 08:22 Respiratory Rate 20 11/06/18 08:22 Blood Pressure 135/57 L 11/06/18 08:22 O2 Sat by Pulse Oximetry (%) 96 11/05/18 17:37 GENERAL: Alert, oriented x3 . in NAD. HEENT: NC/AT, PERRLA, EOMI, MMM NECK: Trachea midline, full range of motion, supple. LUNGS: coarse breathing HEART: RRR no m/r/g ABDOMEN: +BS, soft, NT, ND EXTREMITIES: 2+ pulses, warm, well-perfused, no edema. NEUROLOGICAL: Cn 2-12 grossly intact PSYCH: Confused SKIN: Warm, dry, normal turgor. CMP Sodium 143 mmol/L (136-145) 11/06/18 06:30 Potassium 5.4 mmol/L (3.5-5.1) H 11/06/18 06:30 Chloride 115 mmol/L (98-107) H 11/06/18 06:30 Carbon Dioxide 20 mmol/L (21-32) L 11/06/18 06:30 Anion Gap 9 MMOL/L (8-16) 11/06/18 06:30 BUN 34 mg/dL (7-18) H 11/06/18 06:30 Creatinine 1.7 mg/dL (0.55-1.3) H 11/06/18 06:30 Creat Clearance w eGFR 39.82 (>60) 11/06/18 06:30 POC Glucometer 222 UNITS (80-120) 11/06/18 06:11 Random Glucose 251 mg/dL (74-106) H 11/06/18 06:30 Hemoglobin A1c % 9.5 % (4.2-6.3) H 11/05/18 05:30 Calcium 8.9 mg/dL (8.5-10.1) 11/06/18 06:30 Phosphorus 3.5 mg/dL (2.5-4.9) 11/06/18 06:30 Magnesium 2.0 mg/dL (1.8-2.4) 11/06/18 06:30 Iron 258 ug/dL (38-169) H 11/05/18 11:12 TIBC 277 ug/dL (250-450) 11/05/18 11:12 Iron Saturation 93 % (15-55) H 11/05/18 11:12 Ferritin 392.3 ng/ml (8-388) H 11/05/18 11:12 Total Bilirubin 4.2 mg/dL (0.2-1) H 11/06/18 06:30 Direct Bilirubin 0.6 mg/dL (0.0-0.2) H 11/06/18 06:30 GGT 104 U/L (5-85) H 11/06/18 06:30 AST 30 U/L (15-37) 11/06/18 06:30 ALT 35 U/L (13-61) 11/06/18 06:30 Alkaline Phosphatase 181 U/L (45-117) H 11/06/18 06:30 Ammonia 26.10 umol/L (11-32) 11/06/18 06:30 Creatine Kinase 100 U/L (26-308) 11/04/18 23:50 Troponin I < 0.02 ng/ml (0.00-0.05) 11/04/18 23:50 Total Protein 6.2 g/dl (6.4-8.2) L 11/06/18 06:30 Albumin 3.0 g/dl (3.4-5.0) L 11/06/18 06:30 Current Medications Generic Name Dose Route Start Last Admin Trade Name Freq PRN Reason Stop Dose Admin Heparin Sodium (Porcine) 5,000 unit 11/05/18 06:00 11/06/18 06:25 Heparin - SQ 5,000 unit TID MYNOR Administration Sodium Chloride 1,000 mls @ 42 mls/hr 11/05/18 19:00 11/05/18 20:24 Normal Saline - IV 42 mls/hr ASDIR MYNOR Administration Insulin Aspart 1 vial 11/05/18 07:00 11/06/18 06:15 Novolog Vial Sliding Scale - SQ 4 unit ACHS MYNOR Administration Protocol Insulin Detemir 20 units 11/06/18 07:00 11/06/18 06:26 Levemir Vial SQ 20 units AM MYNOR Administration Lactulose 20 gm 11/05/18 22:00 11/05/18 22:07 Cephulac (Oral Use) PO 20 gm QID MYNOR Administration Nadolol 80 mg 11/06/18 10:00 Corgard - PO DAILY MYNOR Nystatin 1 applic 11/06/18 10:00 Nystop Powder - TP DAILY MYNOR Rifaximin 550 mg 11/05/18 10:00 11/05/18 22:07 Xifaxan - PO 550 mg BID MYNOR Administration Home Medications Medication Instructions Recorded Insulin (Levemir) [Levemir Flexpen 20 units SQ HS #30 pen 05/22/14 -] Furosemide [Lasix -] 40 mg PO BID 05/28/14 Insulin Lispro [Humalog] 6 - 8 unit SQ AC 09/06/14 Nadolol [Corgard -] 40 mg PO TID 09/06/14 Neomycin Sulfate 500 mg PO QID 09/06/14 Ramipril 5 mg PO DAILY 09/06/14 Spironolactone 50 mg PO BID 09/06/14 Omeprazole 20 mg PO DAILY 11/05/18 Tamsulosin HCl [Flomax] 0.4 mg PO HS 11/05/18 Zolpidem Tartrate [Ambien] 10 mg PO HS 11/05/18 US of kidneys: normal ASSESSMENT AND PLAN: Patient is a 73 yo male with PMhx of DM, cirrhosis, CAD, Tobacco use, ESBL UTI, Esophageal Varices, diastolic CHF, COPD and HTN who presented with AMS and hyperglycemia . # AMS: due to hepatic encephalopathy on Lactulose continue , improved back to his baseline, son is at bedside. - cont rifaximine day 2/. back to his basline, GI on the case. continue Nadolol as per GI 40mg po bid # Elevated Indirect Billirubin; will monitor for now. US of liver: cholelithiasis, with hyperechoeic liver consistent with cirrhosis, splenomegaly. # T2DM on 20U in am and will add 10U qhs , cont SSI. close BS control. # H/o Liver Cirrhosis : due to alcohol use with no ascitis . # Acute renal failure over CKD: (2014 Creatinine was 1.5--> 1.7 today) , will resume diuretics when appropriate, also fernando-I is on hold now. # ETOH dependency: strict abstinence DVT PX : heparin sq
[2018-11-06] MEDS: NYSTATIN POWDER 100,000 UNITS/GM - 15 GM TOPICAL POWDER TP SCH (10:08)
[2018-11-06] MEDS: LACTULOSE 20 GM/30 ML UDC (FOR ORAL USE ONLY) PO SCH ×4 (10:08→22:02)
[2018-11-06] MEDS: NADOLOL 40 MG TABLET (FP) PO SCH (10:09)
[2018-11-06] MEDS: RIFAXIMIN 550 MG TABLET (UD) PO SCH ×2 (10:09→22:02)
--- NOTE | 2018-11-06 14:44 | PN.GI ---
GI Progress Note Subjective: Pt seen/examined at bedside, pts stepson present. Pt reports feeling better, denies abdominal pain, n/v, fever/chills. Appetite good. Moving bowels, states he had 2 brown bms today. No blood. - Objective Vital Signs: Vital Signs Temperature 98.7 F 11/06/18 08:22 Pulse Rate 70 11/06/18 08:22 Respiratory Rate 20 11/06/18 08:22 Blood Pressure 135/57 L 11/06/18 08:22 O2 Sat by Pulse Oximetry (%) 96 11/06/18 09:00 Constitutional: Well Nourished, No Distress, Calm Cardiovascular: Yes: WNL, Regular Rate and Rhythm Respiratory: Yes: WNL, Regular, CTA Bilaterally Gastrointestinal Inspection: Yes: WNL ...Auscultate: Yes: Normoactive Bowel Sounds ...Palpate: Yes: Other (Abd soft, nt, nd) Edema: No Neurological: Yes: Other (Mild asterixis) Labs: CBC, BMP 11/06/18 06:30 11/06/18 06:30 INR, PTT INR 1.22 (0.83-1.09) H 11/04/18 23:50 Problem List - Problems (1) Cirrhosis of liver Assessment/Plan: 73yo male h/o ETOH cirrhosis following with Dr. Wynn in [place], records not yet available for review. Reported recent EGD with ?varices however reports also not available and not able to locate recent visits or endoscopies in [facility]. No ascites on US imaging. Hb stable with no evidence of bleeding currently. -Await records from PMD and Dr. Wynn's office including endoscopy reports -Monitor Hb and for evidence of bleeding -Continue nadolol -Strict etoh abstinence -Diuretics on hold for now -- will need to clarify previous dosages Code(s): K74.60 - UNSPECIFIED CIRRHOSIS OF LIVER (2) Altered mental status Assessment/Plan: Likely hepatic encephalopathy however unable to exclude metabolic component in setting of hyperglycemia. Clinically improving. -Recommend complete infectious workup r/o potential underlying infectious precipitant -Continue lactulose titrate to 2-3 loose bms -Continue rifaximin -Optimize glycemic control Code(s): R41.82 - ALTERED MENTAL STATUS, UNSPECIFIED Qualifiers: Altered mental status type: disorientation Qualified Code(s): R41.0 - Disorientation, unspecified
[2018-11-06] MEDS: SODIUM CHLORIDE 1,000 ML IV SCH (22:01)
[2018-11-07] MEDS: INSULIN (LEVEMIR) 100 UNITS/ML UNITS SQ SCH (06:07)
[2018-11-07] MEDS: INSULIN SLIDING SCALE (NOVOLOG) 1 VIAL SQ SCH ×3 (06:08→17:06)
[2018-11-07 07:12] LABS: BASO % 0.6 % (0-2.0); EOS % 4.9 % (0-4.5); HEMATOCRIT 25.9 % (35.4-49); HEMOGLOBIN 9.2 GM/dL (11.7-16.9); LYMPH % 29.1 % (8-40); MCH 35.1 pg (25.7-33.7); MCHC 35.7 g/dl (32.0-35.9); MEAN CELL VOLUME 98.2 fl (80-96); MEAN PLT VOLUME 8.4 fl (7.5-11.1); MONO % 11.5 % (3.8-10.2); NEUT % 53.9 % (42.8-82.8); PLATELET COUNT 71 K/MM3 (134-434); RBC 2.64 M/mm3 (4.00-5.60); RDW 14.4 % (11.9-15.9)
[2018-11-07 08:08] LABS: ALBUMIN 2.6 g/dl (3.4-5.0); ALK PHOS 194 U/L (45-117); ANION GAP 5 MMOL/L (8-16); BILIRUBIN,TOTAL 3.7 mg/dL (0.2-1); BLOOD UREA NITROGEN 32 mg/dL (7-18); CALCIUM 8.3 mg/dL (8.5-10.1); CHLORIDE 112 mmol/L (98-107); CO2 19 mmol/L (21-32); CREATININE 1.5 mg/dL (0.55-1.3); GLUCOSE,RANDOM 246 mg/dL (74-106); MAGNESIUM 1.9 mg/dL (1.8-2.4); PHOSPHOROUS 3.1 mg/dL (2.5-4.9); POTASSIUM 5.6 mmol/L (3.5-5.1); SGOT/AST 47 U/L (15-37); SGPT/ALT 49 U/L (13-61); SODIUM 135 mmol/L (136-145); TOT PROT 5.7 g/dl (6.4-8.2)
[2018-11-07] MEDS ORDERED: PT OWN MED DRAWER 7, Y5N ONE (10:26)
[2018-11-07] MEDS: RIFAXIMIN 550 MG TABLET (UD) PO SCH ×2 (10:40→22:23)
[2018-11-07] MEDS: NADOLOL 40 MG TABLET (FP) PO SCH (10:40)
[2018-11-07] MEDS: LACTULOSE 20 GM/30 ML UDC (FOR ORAL USE ONLY) PO SCH ×4 (10:40→22:23)
[2018-11-07] MEDS: NYSTATIN POWDER 100,000 UNITS/GM - 15 GM TOPICAL POWDER TP SCH (10:43)
[2018-11-07] MEDS ORDERED: INSULIN (NOVOLOG) ASPART 100 UNITS/ML 10ML VIAL ONE ×2 (12:09→17:05)
--- NOTE | 2018-11-07 16:01 | PN ---
Physical Exam: SUBJECTIVE: Patient seen and examined this AM. Continues to feel better; says mental status has returned to baseline. No acute events overnight as per nursing. No new complaints. OBJECTIVE: Vital Signs Period Temp Pulse Resp BP Sys/Block Pulse Ox Last 24 Hr 98.5 F-98.8 F 69-78 20-20 122-137/45-61 97-97 GENERAL: A&Ox3, NAD HEAD: NCAT EYES: PERRL, EOMI, sclera anicteric ENT: moist mucous membranes. Hard of hearing NECK: Supple. LUNGS: Diminished breath sounds at the bases, no wheezes, no crackles HEART: Regular rate and rhythm, S1, S2. Aortic Stenosis murmur noted at the RUSB with mild radiation to the carotids ABDOMEN: Soft, Obese, nontender, nondistended, + bowel sounds, no guarding EXTREMITIES: No edema. Clubbing noted at the finger tips NEUROLOGICAL: Cranial nerves II through XII grossly intact. Gross sensation intact throughout. 5/5 muscle strength globally. PSYCH: Normal mood, normal affect. SKIN: Warm, dry Laboratory Results - last 24 hr 11/07/18 11/07/18 11/07/18 06:06 06:40 06:40 WBC 4.0 RBC 2.64 L Hgb 9.2 L Hct 25.9 L MCV 98.2 H MCH 35.1 H MCHC 35.7 RDW 14.4 Plt Count 71 L MPV 8.4 Absolute Neuts (auto) 2.1 Neutrophils % 53.9 D Lymphocytes % 29.1 D Monocytes % 11.5 H Eosinophils % 4.9 H Basophils % 0.6 Nucleated RBC % 0 Sodium 135 L Potassium 5.6 H Chloride 112 H Carbon Dioxide 19 L Anion Gap 5 L BUN 32 H Creatinine 1.5 H Creat Clearance w eGFR 46.00 POC Glucometer 220 Random Glucose 246 H Calcium 8.3 L Phosphorus 3.1 Magnesium 1.9 Total Bilirubin 3.7 H AST 47 H ALT 49 Alkaline Phosphatase 194 H Total Protein 5.7 L Albumin 2.6 L Vitamin B12 734 Zinc Microbiology 11/06/18 14:00 Nares - Mrsa Screen - Right MRSA Screen - Final NO MRSA ISOLATED 11/06/18 14:00 Nares - Mrsa Screen - Left MRSA Screen - Final NO MRSA ISOLATED Active Medications Sodium Chloride (Normal Saline -) 1,000 mls @ 42 mls/hr IV ASDIR [facility] Last Admin: 11/06/18 22:01 Dose: 42 mls/hr Insulin Aspart (Novolog Vial Sliding Scale -) 1 vial SQ TIDAC [facility]; Protocol Last Admin: 11/07/18 11:50 Dose: 8 units Insulin Detemir (Levemir Vial) 20 units SQ AM [facility] Last Admin: 11/07/18 06:07 Dose: 20 units Insulin Detemir (Levemir Vial) 15 units SQ HS [facility] Lactulose (Cephulac (Oral Use)) 20 gm PO QID [facility] Last Admin: 11/07/18 13:44 Dose: Not Given Nadolol (Corgard -) 80 mg PO DAILY [facility] Last Admin: 11/07/18 10:40 Dose: 80 mg Nystatin (Nystop Powder -) 1 applic TP DAILY [facility] Last Admin: 11/07/18 10:43 Dose: 1 applic Rifaximin (Xifaxan -) 550 mg PO BID [facility] Last Admin: 11/07/18 10:40 Dose: 550 mg IMAGING: -CT Head without contrast: No evidence of acute intracranial hemorrhage, edema, midline shift, mass effect, or skull fracture. No CT evidence of acute territorial ischemic changes. Paranasal sinus disease. Opacified right mastoid air cells, mastoid antrum without bony destructive changes. -CXR: No evidence of active pulmonary disease. -Kidney/Renal/Abdominal US: Cholelithiasis. Somewhat small, heterogeneous and hyperechoic liver consistent with cirrhosis. Splenomegaly. Morphologically normal kidneys with no evidence of hydronephrosis or acute pathology. -EKG: Sinus rhythm with 1st degree AV Block, PVCs, PACs, LBBB, VR 64, QTc 439 ASSESSMENT/PLAN: 73 y/o M w/ PMHx IDDM, cirrhosis, varices, CHF, COPD, HTN, prior episodes of hepatic encephalopathy and UTI, is admitted for AMS. #AMS, improving -Consider components of hepatic encephalopathy vs hyperglycemia; Unlikely Infectious -Zinc level 42L -Lactulose 20gm PO P3A--Vbzxblj to 4-5 BM's/day -Rifaximin 550mg PO BID -NS @ 42 mls/hr -Aspiration precautions #Hyperbilirubinemia -In the setting of Cirrhosis #Macrocytic Anemia -Likely due to EtOh use -Will Check B12, Folate #Thrombocytopenia -Platelet dysfunction in the setting of cirrhosis -No signs of active bleeding, Monitor #Groin infection -Nystatin Powder daily #Hx of IDDM -BGMs ISS TIDAC -Detemir 20u AM -Increase detemir to 15u HS #Hx of cirrhosis, varices -Has hx of EtOH abuse -GI (Dr. Ortega) consulted, appreciate rec's -Continue Nadolol 80mg Daily as per GI Rec's #Hx of CHF, Not currently in exacerbation -Hold diuretics in the setting of elevated Cr #Hx of COPD, Not currently in exacerbation #Hx of HTN -Continue Nadolol at current dose -hold home dose ramipril and diuretics for now #SOPHIE -Continue NS @ 42 mls/hr #FEN -NS @ 42 mls/hr -Lytes WNL -Diabetic diet #PPx -DVT: SCDs; Chemical AC held in the setting of downtrending PLTs Visit type - Emergency Visit Emergency Visit: Yes ED Registration Date: 11/05/18 Care time: The patient presented to the Emergency Department on the above date and was hospitalized for further evaluation of their emergent condition. - New Patient This patient is new to me today: No - Critical Care Critical Care patient: No - Discharge Referral Referred to [facility] Med P.C.: No
--- NOTE | 2018-11-07 16:35 | EKG ---
Test Reason : Blood Pressure : / mmHG Vent. Rate : 066 BPM Atrial Rate : 066 BPM P-R Int : 200 ms QRS Dur : 144 ms QT Int : 420 ms P-R-T Axes : 036 024 075 degrees QTc Int : 440 ms SINUS RHYTHM WITH FREQUENT PREMATURE VENTRICULAR COMPLEXES LEFT BUNDLE BRANCH BLOCK ABNORMAL ECG WHEN COMPARED WITH ECG OF 05-NOV-2018 07:17, NO SIGNIFICANT CHANGE WAS FOUND Confirmed by GORAN SAPP MD ([id number]) on 11/07/2018 4:34:52 PM Referred By: Confirmed By:GORAN SAPP MD
--- NOTE | 2018-11-07 18:16 | PN.GI ---
GI Progress Note Subjective: Had 8 loose BM's yesterday Patient states feeling better States that he was usually taking drops s/p cataract surgery 6-8 months ago and isn't currently receiving them - Objective Vital Signs: Vital Signs Temperature 98.5 F 11/07/18 09:27 Pulse Rate 69 11/07/18 09:27 Respiratory Rate 20 11/07/18 09:27 Blood Pressure 122/45 L 11/07/18 09:27 O2 Sat by Pulse Oximetry (%) 97 11/07/18 09:00 Constitutional: Calm Eyes: No: Sclera Icterus Cardiovascular: Yes: Regular Rate and Rhythm Respiratory: Yes: CTA Bilaterally Gastrointestinal Inspection: No: Distention ...Auscultate: Yes: Normoactive Bowel Sounds ...Palpate: Yes: Soft. No: Hepatomegaly, Splenomegaly, Tenderness Edema: No (No LE edema) Neurological: Yes: Alert, Oriented (x person, place, time). No: Asterixis Labs: CBC, BMP 11/07/18 06:40 11/07/18 06:40 INR, PTT INR 1.22 (0.83-1.09) H 11/04/18 23:50 Hepatic Panel Total Bilirubin 3.7 mg/dL (0.2-1) H 11/07/18 06:40 Direct Bilirubin 0.6 mg/dL (0.0-0.2) H 11/06/18 06:30 AST 47 U/L (15-37) H 11/07/18 06:40 ALT 49 U/L (13-61) 11/07/18 06:40 Alkaline Phosphatase 194 U/L (45-117) H 11/07/18 06:40 Albumin 2.6 g/dl (3.4-5.0) L 11/07/18 06:40 Problem List - Problems (1) Hepatic encephalopathy Assessment/Plan: Much improved decreased to Lactulose 20g TID Continue Rifaximin 550mg PO BID Advised nurse of Mr. Marie's concerns re: his ophthalmic drops and asked her to call the primary team regarding this Code(s): K72.90 - HEPATIC FAILURE, UNSPECIFIED WITHOUT COMA (2) Portal hypertension Assessment/Plan: Continue Nadolol 80mg once daily Obtain old records Arrange outpatient follow-up with his corsage maker Code(s): K76.6 - PORTAL HYPERTENSION
--- NOTE | 2018-11-07 18:50 | PN ---
Teaching Attending Note Name of Resident: Anne Penaloza ATTENDING PHYSICIAN STATEMENT I saw and evaluated the patient. I reviewed the resident's note and discussed the case with the resident. I agree with the resident's findings and plan as documented. SUBJECTIVE: OBJECTIVE: Vital Signs Temperature 98.5 F 11/07/18 09:27 Pulse Rate 69 11/07/18 09:27 Respiratory Rate 20 11/07/18 09:27 Blood Pressure 122/45 L 11/07/18 09:27 O2 Sat by Pulse Oximetry (%) 97 11/07/18 09:00 CBCD WBC 4.0 K/mm3 (4.0-10.0) 11/07/18 06:40 RBC 2.64 M/mm3 (4.00-5.60) L 11/07/18 06:40 Hgb 9.2 GM/dL (11.7-16.9) L 11/07/18 06:40 Hct 25.9 % (35.4-49) L 11/07/18 06:40 MCV 98.2 fl (80-96) H 11/07/18 06:40 MCHC 35.7 g/dl (32.0-35.9) 11/07/18 06:40 RDW 14.4 % (11.9-15.9) 11/07/18 06:40 Plt Count 71 K/MM3 (134-434) L 11/07/18 06:40 MPV 8.4 fl (7.5-11.1) 11/07/18 06:40 CMP Sodium 135 mmol/L (136-145) L 11/07/18 06:40 Potassium 5.6 mmol/L (3.5-5.1) H 11/07/18 06:40 Chloride 112 mmol/L (98-107) H 11/07/18 06:40 Carbon Dioxide 19 mmol/L (21-32) L 11/07/18 06:40 Anion Gap 5 MMOL/L (8-16) L 11/07/18 06:40 BUN 32 mg/dL (7-18) H 11/07/18 06:40 Creatinine 1.5 mg/dL (0.55-1.3) H 11/07/18 06:40 Creat Clearance w eGFR 46.00 (>60) 11/07/18 06:40 Random Glucose 246 mg/dL (74-106) H 11/07/18 06:40 Calcium 8.3 mg/dL (8.5-10.1) L 11/07/18 06:40 Total Bilirubin 3.7 mg/dL (0.2-1) H 11/07/18 06:40 AST 47 U/L (15-37) H 11/07/18 06:40 ALT 49 U/L (13-61) 11/07/18 06:40 Alkaline Phosphatase 194 U/L (45-117) H 11/07/18 06:40 Total Protein 5.7 g/dl (6.4-8.2) L 11/07/18 06:40 Albumin 2.6 g/dl (3.4-5.0) L 11/07/18 06:40 CARDIAC ENZYMES Creatine Kinase 100 U/L (26-308) 11/04/18 23:50 Troponin I < 0.02 ng/ml (0.00-0.05) 11/04/18 23:50 Current Medications Generic Name Dose Route Start Last Admin Trade Name Ritoq PRN Reason Stop Dose Admin Sodium Chloride 1,000 mls @ 42 mls/hr 11/05/18 19:00 11/06/18 22:01 Normal Saline - IV 42 mls/hr ASDIR MYNOR Administration Insulin Aspart 1 vial 11/06/18 16:30 11/07/18 17:06 Novolog Vial Sliding Scale - SQ 8 units TIDAC [facility] Administration Protocol Insulin Detemir 20 units 11/06/18 07:00 11/07/18 06:07 Levemir Vial SQ 20 units AM MYNOR Administration Insulin Detemir 15 units 11/07/18 22:00 Levemir Vial SQ HS MYNOR Lactulose 20 gm 11/07/18 22:00 Cephulac (Oral Use) PO TID MYNOR Nadolol 80 mg 11/06/18 10:00 11/07/18 10:40 Corgard - PO 80 mg DAILY MYNOR Administration Nystatin 1 applic 11/06/18 10:00 11/07/18 10:43 Nystop Powder - TP 1 applic DAILY MYNOR Administration Rifaximin 550 mg 11/05/18 10:00 11/07/18 10:40 Xifaxan - PO 550 mg BID MYNOR Administration ASSESSMENT AND PLAN: Patient is a 73 yo male with PMhx of DM, cirrhosis, CAD, Tobacco use, ESBL UTI, Esophageal Varices, diastolic CHF, COPD and HTN who presented with AMS and hyperglycemia . # AMS: due to hepatic encephalopathy on Lactulose continue , improved back to his baseline, son is at bedside. - cont rifaximine day 2/2. back to his basline, GI on the case. continue Nadolol as per GI 40mg po bid # Hyperkalemia: despite on Being on lactulose, most likely due to Rifaximin. # Elevated Indirect Billirubin; will monitor for now. US of liver: cholelithiasis, with hyperechoeic liver consistent with cirrhosis, splenomegaly. # T2DM on 20U in am and will add 10U qhs , cont SSI. close BS control. # H/o Liver Cirrhosis : due to alcohol use with no ascitis . # Acute renal failure over CKD: (2014 Creatinine was 1.5--> 1.7 today) , will resume diuretics when appropriate, also fernando-I is on hold now. # ETOH dependency: strict abstinence DVT PX : heparin sq
[2018-11-07] MEDS: SODIUM CHLORIDE 1,000 ML IV SCH (19:12)
[2018-11-07] MEDS ORDERED: INSULIN (LEVEMIR) 100 UNITS/ML UNITS SQ SCH (22:00)
[2018-11-08] MEDS: INSULIN SLIDING SCALE (NOVOLOG) 1 VIAL SQ SCH ×3 (06:50→16:41)
[2018-11-08] MEDS: LACTULOSE 20 GM/30 ML UDC (FOR ORAL USE ONLY) PO SCH ×2 (06:51→13:38)
[2018-11-08] MEDS: INSULIN (LEVEMIR) 100 UNITS/ML UNITS SQ SCH (06:51)
[2018-11-08] MEDS: SODIUM CHLORIDE 1,000 ML IV SCH (06:54)
[2018-11-08] MEDS ORDERED: INSULIN (LEVEMIR) 100 UNITS/ML UNITS SQ ONE (07:02)
[2018-11-08 07:15] LABS: BASO % 0.9 % (0-2.0); EOS % 5.8 % (0-4.5); HEMATOCRIT 26.8 % (35.4-49); HEMOGLOBIN 9.4 GM/dL (11.7-16.9); MCH 34.3 pg (25.7-33.7); MCHC 34.9 g/dl (32.0-35.9); MEAN CELL VOLUME 98.2 fl (80-96); MEAN PLT VOLUME 8.5 fl (7.5-11.1); NEUT % 57.3 % (42.8-82.8); PLATELET COUNT 70 K/MM3 (134-434); RBC 2.73 M/mm3 (4.00-5.60); RDW 14.5 % (11.9-15.9); WHITE BLOOD COUNT 4.1 K/mm3 (4.0-10.0)
[2018-11-08 07:43] LABS: ALBUMIN 2.7 g/dl (3.4-5.0); ALK PHOS 197 U/L (45-117); ANION GAP 7 MMOL/L (8-16); BILIRUBIN,TOTAL 3.4 mg/dL (0.2-1); BLOOD UREA NITROGEN 31 mg/dL (7-18); CALCIUM 7.9 mg/dL (8.5-10.1); CHLORIDE 111 mmol/L (98-107); CHOLESTEROL 125 mg/dL (50-200); CO2 20 mmol/L (21-32); CREATININE 1.4 mg/dL (0.55-1.3); GLUCOSE,RANDOM 210 mg/dL (74-106); HDL CHOLESTEROL 59 mg/dL (40-60); MAGNESIUM 1.9 mg/dL (1.8-2.4); PHOSPHOROUS 2.7 mg/dL (2.5-4.9); SGOT/AST 48 U/L (15-37); SGPT/ALT 49 U/L (13-61); SODIUM 139 mmol/L (136-145); TOT PROT 5.4 g/dl (6.4-8.2); TRIGLYCERIDES 82 mg/dL (0-150)
[2018-11-08] MEDS ORDERED: PT OWN MED DRAWER 7, Y5N ONE (10:04)
[2018-11-08] MEDS: RIFAXIMIN 550 MG TABLET (UD) PO SCH (10:07)
[2018-11-08] MEDS: NADOLOL 40 MG TABLET (FP) PO SCH (10:07)
[2018-11-08] MEDS: NYSTATIN POWDER 100,000 UNITS/GM - 15 GM TOPICAL POWDER TP SCH (10:09)
[2018-11-08] MEDS ORDERED: INSULIN (NOVOLOG) ASPART 100 UNITS/ML 10ML VIAL ONE ×2 (12:03→16:27)
--- NOTE | 2018-11-08 15:31 | DS ---
Physical Exam: SUBJECTIVE: Patient seen and examined this AM. No acute events overnight as per nursing. No new complaints. OBJECTIVE: Vital Signs Period Temp Pulse Resp BP Sys/Block Pulse Ox Last 24 Hr 97.9 F-98.3 F 65-70 20-20 114-143/50-89 97-97 PHYSICAL EXAM GENERAL: A&Ox3, NAD HEAD: NCAT EYES: PERRL, EOMI, sclera anicteric ENT: moist mucous membranes. Hard of hearing NECK: Supple. LUNGS: Diminished breath sounds at the bases, no wheezes, no crackles HEART: Regular rate and rhythm, S1, S2. Aortic Stenosis murmur noted at the RUSB with mild radiation to the carotids ABDOMEN: Soft, Obese, nontender, nondistended, + bowel sounds, no guarding EXTREMITIES: No edema. Clubbing noted at the finger tips NEUROLOGICAL: Cranial nerves II through XII grossly intact. Gross sensation intact throughout. 5/5 muscle strength globally. PSYCH: Normal mood, normal affect. SKIN: Warm, dry LABS Laboratory Results - last 24 hr 11/07/18 11/07/18 11/08/18 17:03 22:22 06:10 WBC 4.1 RBC 2.73 L Hgb 9.4 L Hct 26.8 L MCV 98.2 H MCH 34.3 H MCHC 34.9 RDW 14.5 Plt Count 70 L MPV 8.5 Absolute Neuts (auto) 2.4 Neutrophils % 57.3 Lymphocytes % 27.0 Monocytes % 9.0 Eosinophils % 5.8 H Basophils % 0.9 Nucleated RBC % 0 Sodium Potassium Chloride Carbon Dioxide Anion Gap BUN Creatinine Creat Clearance w eGFR POC Glucometer 316 268 Random Glucose Calcium Phosphorus Magnesium Total Bilirubin AST ALT Alkaline Phosphatase Total Protein Albumin Triglycerides Cholesterol Total LDL Cholesterol HDL Cholesterol TSH Free T4 11/08/18 11/08/18 11/08/18 06:10 06:49 12:01 WBC RBC Hgb Hct MCV MCH MCHC RDW Plt Count MPV Absolute Neuts (auto) Neutrophils % Lymphocytes % Monocytes % Eosinophils % Basophils % Nucleated RBC % Sodium 139 Potassium 5.0 Chloride 111 H Carbon Dioxide 20 L Anion Gap 7 L BUN 31 H Creatinine 1.4 H Creat Clearance w eGFR 49.82 POC Glucometer 240 265 Random Glucose 210 H Calcium 7.9 L Phosphorus 2.7 Magnesium 1.9 Total Bilirubin 3.4 H AST 48 H ALT 49 Alkaline Phosphatase 197 H Total Protein 5.4 L Albumin 2.7 L Triglycerides 82 Cholesterol 125 Total LDL Cholesterol 60 HDL Cholesterol 59 TSH 0.40 Free T4 0.99 Microbiology 11/06/18 14:00 Nares - Mrsa Screen - Right MRSA Screen - Final NO MRSA ISOLATED 11/06/18 14:00 Nares - Mrsa Screen - Left MRSA Screen - Final NO MRSA ISOLATED IMAGING: -CT Head without contrast: No evidence of acute intracranial hemorrhage, edema, midline shift, mass effect, or skull fracture. No CT evidence of acute territorial ischemic changes. Paranasal sinus disease. Opacified right mastoid air cells, mastoid antrum without bony destructive changes. -CXR: No evidence of active pulmonary disease. -Kidney/Renal/Abdominal US: Cholelithiasis. Somewhat small, heterogeneous and hyperechoic liver consistent with cirrhosis. Splenomegaly. Morphologically normal kidneys with no evidence of hydronephrosis or acute pathology. -EKG: Sinus rhythm with 1st degree AV Block, PVCs, PACs, LBBB, VR 64, QTc 439 HOSPITAL COURSE: Date of Admission:11/05/18 Date of Discharge: 11/08/18 73 y/o M w/ PMHx IDDM, cirrhosis, varices, CHF, COPD, HTN, prior episodes of hepatic encephalopathy and UTI, is admitted for AMS in the setting of possible hepatic encephalopathy vs hyperglycemia. Imaging and microbiology noted above. Patient remained Afebrile and without leukocystosis during his stay. He was treated with Lactulose and Rifaxmin and his mental status improved. GI was consulted. His home DM regimen was adjust and his blood glucose was better controlled. His home medications were optimized--Nadalol dose adjusted to 80mg daily; Ramipril and spironolactone held in the setting of hyperkalemia. Patient was discharged home with strict instructions for medication complaince, physician follow up. Minutes to complete discharge: 36 Discharge Summary Reason For Visit: HYPERGLYCEMIA, AMS, HEPATIC ENCEPHALOPATHY Current Active Problems Acute renal insufficiency (Acute) Altered mental status (Acute) Hepatic encephalopathy (Acute) Hepatic encephalopathy (Acute) Hyperglycemia (Acute) Portal hypertension (Acute) Condition: Improved - Instructions Diet, Activity, Other Instructions: You came to the hospital after experiencing altered mental status. Medication Changes: 1. Please stop using Neomycin , Furosemide and spironolactone, and Ramipril 2. Stop taking nadolol 40mg three times a day; instead take it 80mg daily 3. Continue taking Rifaximin 550mg twice a day 4. Continue taking Levemir 20 units in the morning and 15 units at bed time 5. please continue taking your eye drops as you were prescribed by your senior sales manager. Follow up with the following physicians: 1. PCP in one week--Dr. Matson 2. Elevator Conductor ; Dr. Wynn in one week 3. Endocrinology (Dr. Ortiz) in one week Please continue to refrain from alcohol use. Drink lots of water. Please return to the ER if you have any signs or symptoms of chest pain, shortness of breath, uncontrollable fever, chills, nausea, vomiting, numbness, tingling, or weakness in any part of your body, changes in vision, slurred speech, changes in speech/gait, or dizziness. Please return to the ER if symptoms persist, worsen, or new symptoms arise. Referrals: Jarad Matson MD [Staff Physician] - 1 Week Mae Perry MD [Staff Physician] - 1 Week Disposition: HOME - Home Medications Comprehensive Discharge Medication List: Ambulatory Orders Insulin Lispro [Humalog] 6 - 8 unit SQ AC 09/06/14 Omeprazole 20 mg PO DAILY 11/05/18 Tamsulosin HCl [Flomax] 0.4 mg PO HS 11/05/18 Insulin (Levemir) [Levemir Vial] 15 units SQ HS #1 vial 11/08/18 Insulin (Levemir) [Levemir Vial] 20 units SQ AM #1 vial 11/08/18 Lactulose (Oral Use) [Cephulac -] 20 gm PO TID #1 udc 11/08/18 Nadolol [Corgard -] 80 mg PO DAILY #60 tablet 11/08/18 Nystatin Powder [Nystop Powder -] 1 applic TP DAILY #1 applic 11/08/18 Rifaximin [Xifaxan -] 550 mg PO BID #60 tablet 11/08/18 This patient is new to me today: No Emergency Visit: Yes ED Registration Date: 11/05/18 Care time: The patient presented to the Emergency Department on the above date and was hospitalized for further evaluation of their emergent condition. Critical Care patient: No - Discharge Referral Referred to [facility] Med P.C.: No
[2018-11-08 18:50] VITALS: BP 138/87; PULSE 68; TEMP 98.4
== END 2018-11-08 19:46 | disposition home or self-care (01) | DRG 442 ==
LOC: JER 22:39 → JERBED 11-05 01:01 → J6S 11-05 16:58
PROVIDERS: ADMIT Internal Medicine; ATTEND Internal Medicine
DX: K72.90 Hepatic failure, unspecified without coma (principal); E46 Unspecified protein-calorie malnutrition; N17.9 Acute kidney failure, unspecified; I50.32 Chronic diastolic (congestive) heart failure; I13.0 Hypertensive heart and chronic kidney disease with heart failure and stage 1 through stage 4 chronic kidney disease, or unspecified chronic kidney disease; I85.00 Esophageal varices without bleeding; K76.6 Portal hypertension; E11.65 Type 2 diabetes mellitus with hyperglycemia; E11.22 Type 2 diabetes mellitus with diabetic chronic kidney disease; N18.9 Chronic kidney disease, unspecified; J43.9 Emphysema, unspecified; D69.6 Thrombocytopenia, unspecified; D50.9 Iron deficiency anemia, unspecified; I44.7 Left bundle-branch block, unspecified; Z79.4 Long term (current) use of insulin; E66.9 Obesity, unspecified; Z68.33 Body mass index [BMI] 33.0-33.9, adult; F17.210 Nicotine dependence, cigarettes, uncomplicated; K74.60 Unspecified cirrhosis of liver; I25.2 Old myocardial infarction; E88.09 Other disorders of plasma-protein metabolism, not elsewhere classified
CPT/HCPCS: 36415; 70450-TC; 71045-TC-FY; 76700-TC; 76775-TC; 80048; 80053; 80061; 81003; 82009; 82140; 82248; 82272; 82550; 82607; 82728; 82747; 82947; 82962; 82977; 83036; 83540; 83550; 83721; 83735; 84100; 84439; 84443; 84484; 84630; 85014; 85025; 85610; 85730; 87081; 93005; 93010; 97116-GP; 97161-GP; 99283-25; J1644; J7030

== ENCOUNTER 2018-11-29 19:11 | Inpatient (IN) | payer OTHER ==
--- NOTE | 2018-11-29 20:16 | PDOC ---
History of Present Illness - General Stated Complaint: AMS Time Seen by Provider: 11/29/18 20:12 History Source: Family (Son) Exam Limitations: Clinical Condition - History of Present Illness Initial Comments: Pt is a 73 yo M, with PMH of IDDM, cirrhosis with varices (banded) and hepatic encephalopathy, CHF, COPD, HTN, and UTI (klebsiella), who is presenting via EMS with his son for acute AMS. The son states the pts blood glucose early this afternoon was in the 400s. The son provided the pt his insulin, and the BG dropped to 280, however the pt was still acting "unlike himself" and not responding to questions appropriately. The son left for a short while, and when he returned, found his father face down on the floor. The pt is unable to respond to ROS questions due to AMS, but the son denies any recent vomiting, diarrhea, or changes to his eating habits. Pt was discharged Social: Pt smokes 1/2 ppd. Prior alcohol use for many years. Son denies history of drug use. Denies any recent travel or sick contacts. Surgical: variceal banding. Family: no relevant history. 11/30/18 01:29 Son: José Manuel -- [phone] 11/30/18 01:32 Past History - Travel Traveled outside of the country in the last 30 days: No Close contact w/someone who was outside of country & ill: No - Past Medical History Allergies/Adverse Reactions: Allergies Allergy/AdvReac Type Severity Reaction Status Date / Time No Known Allergies Allergy Verified 11/04/18 23:23 Home Medications: Ambulatory Orders Insulin Lispro [Humalog] 6 - 8 unit SQ AC 09/06/14 Omeprazole 20 mg PO DAILY 11/05/18 Tamsulosin HCl [Flomax] 0.4 mg PO HS 11/05/18 Insulin (Levemir) [Levemir Vial] 15 units SQ HS #1 vial 11/08/18 Insulin (Levemir) [Levemir Vial] 20 units SQ AM #1 vial 11/08/18 Lactulose (Oral Use) [Cephulac -] 20 gm PO TID #1 udc 11/08/18 Nadolol [Corgard -] 80 mg PO DAILY #60 tablet 11/08/18 Nystatin Powder [Nystop Powder -] 1 applic TP DAILY #1 applic 11/08/18 Rifaximin [Xifaxan -] 550 mg PO BID #60 tablet 11/08/18 Anemia: Yes Asthma: No Cancer: No Cardiac Disorders: No CVA: No COPD: Yes (EMPHYSEMA) CHF: Yes Dementia: No Diabetes: Yes (NIDDM) GI Disorders: Yes (ESOPHAGEAL VARICES) Disorders: Yes (ESBL IN URINE) HTN: No Hypercholesterolemia: No Liver Disease: Yes (CIRRHOSIS) Seizures: No Thyroid Disease: No - Surgical History Abdominal Surgery: Yes (ESOPHAGEAL SX, HERNIA) Appendectomy: No Cardiac Surgery: No Cholecystectomy: No Lung Surgery: No Neurologic Surgery: No Orthopedic Surgery: No - Immunization History Immunization Up to Date: Yes - Suicide/Smoking/Psychosocial Hx Smoking Status: Yes Smoking History: Former smoker Have you smoked in the past 12 months: Yes Number of Cigarettes Smoked Daily: 10 If you are a former smoker, when did you quit?: smokes daily 'Breaking Loose' booklet given: 09/07/14 Hx Alcohol Use: Yes (former alcoholic) Drug/Substance Use Hx: No Substance Use Type: Alcohol Hx Substance Use Treatment: No Review of Systems - Review of Systems Able to Perform ROS?: No (AMS) Is the patient limited Portuguese proficient: No *Physical Exam - Physical Exam Comments: Vitals stable, pt afebrile. Obese body habitus. Pt A/O x0, responds to his name but is yelling obscenities in the hallway and protecting his airway. bacon slicer generally intact, muscular strength and sensation intact. Pt moving all extremities and withdraws from painful stimuli. No midline spinal tenderness, step-offs, or crepitus. Head normocephalic, atraumatic. Eyes PERRLA, EOMI. Oropharynx without erythema or exudates, no LAD b/l. No nasal congestion, hearing intact. Clear heart sounds, S1/S2, no JVD, b/l pedal edema, or heart murmur. Clear lung sounds, no respiratory distress, wheezes, crackles, or accessory muscle use. No abdominal or CVA tenderness to palpation, no rebound, no guarding. Abdomen soft, extremely protuberant, and with normoactive bowel sounds. Bruising in different stages of healing on b/l upper extremities. Small new skin tear (~1 cm) along L dorsal forearm. Skin without jaundice or rash. 11/29/18 21:49 11/29/18 23:54 11/30/18 01:15 ED Treatment Course - LABORATORY CBC & Chemistry Diagram: 11/29/18 20:45 11/29/18 20:45 Medical Decision Making - Medical Decision Making Pt was seen at bedside, also will be seen by attending Dr. Givens. Pt presenting via EMS with his son for acute AMS. The son states the pts blood glucose early this afternoon was in the 400s. The son provided the pt his insulin, and the BG dropped to 280, however the pt was still acting "unlike himself" and not responding to questions appropriately. The son left for a short while, and when he returned, found his father face down on the floor. The pt is unable to respond to ROS questions due to AMS, but the son denies any recent vomiting, diarrhea, or changes to his eating habits. Considering hepatic encephalopathy (2/2 medication non-compliance vs infection) vs sepsis vs electrolyte imbalances vs CVA/ischemia vs ACS. Considering broad differential in this pt with significant medical history and new AMS. Bedside BGM:373 Ordered work-up including sepsis work-up with ammonia, troponin, chest x-ray, ECG. Provided 1 L IV NS, 20 mg po lactulose, 550 rifaximin, and 6 units IV insulin for improvement of possible hepatic encephalopathy, hyperglycemia and dehydration. Will continue to reassess pt and monitor for symptomatic improvement. ECG: NSR (HR 68, KY 190, QRS 132, QTc 435), pt has prior LBBB (10/2018). No TWIs or significant ST segment changes. No significant changes from prior ECG. Pt has no fever, no WBC, but elevated lactic acid and 150 ammonia. Most likely hepatic encephalopathy. Taking pt for CT head and CT abd/pelvis: CT Abd/Pelvis Impression: No definite CT findings of acute pathology are seen within the abdomen/pelvis. Multiple chronic findings are visualized as discussed above. Interval development of a mild to moderate chronic versus subacute T12 vertebral body compression fracture is seen without bony retropulsion. 11/29/18 21:49 CT Head: Impression: No CT evidence of acute intracranial pathology. The intracranial structures demonstrate no definite interval change in comparison to a prior CT exam of 11/05/2018. Increased paranasal sinus disease is noted as discussed above. Diffuse fluid opacification of the right mastoid air cells is again seen. Pt able to tolerate PO lactulose in apple juice. Pt unable to swallow rifaximin. 11/29/18 21:51 Pt admitted to hospitalist team (Dr. Walton). Pt requires sedation, as pt tried to swing at tech drawing labs. Providing 5 mg IV haldol and 50 mg IV benadryl. 11/30/18 01:19 11/30/18 01:46 *DC/Admit/Observation/Transfer Diagnosis at time of Disposition: Alcoholic cirrhosis of liver without ascites, Hepatic encephalopathy, Hyperglycemia - Discharge Dispostion Condition at time of disposition: Stable Decision to Admit order: Yes - Referrals - Patient Instructions - Post Discharge Activity
[2018-11-29 21:13] LABS: BASO % 0.4 % (0-2.0); EOS % 2.2 % (0-4.5); HEMOGLOBIN 10.5 GM/dL (11.7-16.9); LYMPH % 14.4 % (8-40); MCHC 34.9 g/dl (32.0-35.9); MEAN CELL VOLUME 100.3 fl (80-96); MEAN PLT VOLUME 9.5 fl (7.5-11.1); MONO % 6.7 % (3.8-10.2); NEUT % 76.3 % (42.8-82.8); PLATELET COUNT 94 K/MM3 (134-434); RBC 2.99 M/mm3 (4.00-5.60); RDW 15.5 % (11.9-15.9); WHITE BLOOD COUNT 6.2 K/mm3 (4.0-10.0)
[2018-11-29] MEDS ORDERED: LACTULOSE 20 GM/30 ML UDC (FOR RECTAL USE ONLY) PR STA (21:23)
[2018-11-29] MEDS ORDERED: RIFAXIMIN 550 MG TABLET (UD) PO STA (21:25)
[2018-11-29 21:28] LABS: INR 1.19 (0.83-1.09); PROTHROMBIN TIME (PATIENT) 14.1 SEC (9.7-13.0)
[2018-11-29] MEDS ORDERED: SODIUM CHLORIDE 1,000 ML IV STA ×2 (21:30→21:40)
[2018-11-29 21:31] LABS: ACTIVATED PTT 35.6 SECONDS (25.2-36.5)
[2018-11-29 21:38] LABS: ALBUMIN 3.2 g/dl (3.4-5.0); ALK PHOS 269 U/L (45-117); ANION GAP 9 MMOL/L (8-16); BILIRUBIN,TOTAL 4.1 mg/dL (0.2-1); BLOOD UREA NITROGEN 46 mg/dL (7-18); CALCIUM 9.3 mg/dL (8.5-10.1); CHLORIDE 110 mmol/L (98-107); CO2 17 mmol/L (21-32); CREATININE 1.7 mg/dL (0.55-1.3); POTASSIUM 5.5 mmol/L (3.5-5.1); SGOT/AST 35 U/L (15-37); SGPT/ALT 48 U/L (13-61); SODIUM 136 mmol/L (136-145); TOT PROT 6.6 g/dl (6.4-8.2)
[2018-11-29 21:40] LABS: GLUCOSE,RANDOM 372 mg/dL (74-106)
[2018-11-29] MEDS ORDERED: INSULIN REGULAR HUMAN 100 UNITS/ML *VIAL IVPUSH ONE (22:35)
[2018-11-29 23:06] LABS: ACETONE SERUM NEGATIVE (NEGATIVE)
[2018-11-29] MEDS ORDERED: LACTULOSE 20 GM/30 ML UDC (FOR ORAL USE ONLY) PO ONE (23:06)
[2018-11-29] MEDS ORDERED: LACTULOSE 20 GM/30 ML UDC (FOR ORAL USE ONLY) ONE (23:39)
[2018-11-29] MEDS ORDERED: INSULIN NPH 100 UNITS/ML *VIAL ONE (23:41)
--- NOTE | 2018-11-29 23:57 | PDOC ---
Documentation entered by Fan Campos SCRIBE, acting as scribe for Thi Givens MD. Thi Givens MD: This documentation has been prepared by the Beth oscar Nirvannie, SCRIBE, under my direction and personally reviewed by me in its entirety. I confirm that the documentation accurately reflects all work, treatment, procedures, and medical decision making performed by me. Attending Attestation - Resident Resident Name: GersonCrystal - ED Attending Attestation I have performed the following: I have examined & evaluated the patient, The case was reviewed & discussed with the resident, I agree w/resident's findings & plan - HPI HPI: 11/29/18 21:53 The patient is a 73 year old male, with a significant past medical history of IDDM, Cirrhosis, Varices, CHF, COPD, HTN, who presents to the emergency department with, AMS and hyperglycemia. As per son at bedside, he was found down on the floor at which time he was altered and blood glucose level was in the 400s. Son notes bringing the level down but, he was still altered prompting their arrival to the ED. History was limited secondary to patients clinical condition thus, was obtained via EMR and son at bedside. Allergies: NKDA - Physicial Exam PE: 11/29/18 21:46 GENERAL: +Awake, alert, and confused. HEAD: No signs of trauma EYES: PERRLA, Able to track with blt eyes. NECK: Normal ROM, supple, no lymphadenopathy, JVD, or masses LUNGS: Breath sounds equal, clear to auscultation bilaterally. No wheezes, and no crackles HEART: Regular rate and rhythm, normal S1 and S2, no murmurs, rubs or gallops ABDOMEN: +Minimal tenderness to the LQ abdomen. Obese. Mild distended. Diffuse bruising to the abdomen most bluish in coloration. Soft, normoactive bowel sounds. No guarding, no rebound. No masses EXTREMITIES: Normal range of motion, no edema. No clubbing or cyanosis. No cords, erythema, or tenderness NEUROLOGICAL: +Confused. Unable to follow commands. - Medical Decision Making 11/29/18 23:39 Pt comes with AMS, as per son. Pt is lying in bed and yelling. He has known liver damage secondary to a hx of alcohol abuse. Pt has elevated pneumonia today 143. He has a normal Head CT. Very distended abd, with lower abd mild tenderness with palpation. Pt has a normal abd CT scan. Pt has no flank pain. Pt has incontinence of urine. Unclear if this is UTI; UA pending. Pt will be empirically treated with a dose of levaquin. 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 Awake enough to take the lactulose orally. 11/30/18 00:55 Pt is more belligerent at this time. He will be given haldol and benadryl, as he is fightling the nurse while she is trying to draw his 2nd blood test. 11/30/18 03:46 Pt has been admitted to the hospitalist team. He is stable in the ER.
[2018-11-30] MEDS ORDERED: DIPHTH,PERTUSS(ACELL),TET 0.5 ML DISP.SYRIN IM ONE ×2 (00:21→01:20)
[2018-11-30] MEDS ORDERED: INSULIN SLIDING SCALE (NOVOLOG) 1 VIAL SQ SCH (00:45)
[2018-11-30] MEDS ORDERED: HALOPERIDOL LACTATE 5 MG/ML IM ONE ×2 (00:54→01:20)
--- NOTE | 2018-11-30 01:13 | HP ---
CHIEF COMPLAINT: Altered Mental Status HISTORY OF PRESENT ILLNESS: 73 year old male with a hx of diabetes mellitus, liver cirrhosis, esophageal varices, CHF, COPD, and hypertension who was brought in by ambulance for altered mental status after being found on the floor by the daughter in law at home. Per son at bedside, the patient was found on the floor unresponsive. He checked his father's sugar which was >400 at home and thus the son administered 10U of insulin at home which brought the sugar down. Because the patient was still heavily altered and not responding, he brought him to the emergency room. Notably, the patient was recently here for similar symptoms and diagnosed with hepatic encephalopathy, treated with rifaximin and lactulose. At present, patient is able to only speak one phrase and is not responsive to command, but he is awake. No obvious signs of pain or shortness of breath. ER course was notable for: (1) Glu 372 (2) LA 2.6 (3) ammonia 143 (4) CT abd/pelvis with portal hypertension, varices, cholelithiasis without cholecystitis Recent Travel: unknown PAST MEDICAL HISTORY: as stated above PAST SURGICAL HISTORY: as stated above Social History: Smoking: unknown Alcohol: unknown Drugs: unknown Family History: unknown Allergies No Known Allergies Allergy (Verified 11/04/18 23:23) HOME MEDICATIONS: Home Medications Medication Instructions Recorded Insulin Lispro [Humalog] 6 - 8 unit SQ AC 09/06/14 Omeprazole 20 mg PO DAILY 11/05/18 Tamsulosin HCl [Flomax] 0.4 mg PO HS 11/05/18 Insulin (Levemir) [Levemir Vial] 15 units SQ HS #1 vial 11/08/18 Insulin (Levemir) [Levemir Vial] 20 units SQ AM #1 vial 11/08/18 Lactulose (Oral Use) [Cephulac -] 20 gm PO TID #1 udc 11/08/18 Nadolol [Corgard -] 80 mg PO DAILY #60 tablet 11/08/18 Nystatin Powder [Nystop Powder -] 1 applic TP DAILY #1 applic 11/08/18 Rifaximin [Xifaxan -] 550 mg PO BID #60 tablet 11/08/18 REVIEW OF SYSTEMS CONSTITUTIONAL: Absent: fever, chills, diaphoresis, generalized weakness, malaise, loss of appetite, weight change HEENT: Absent: rhinorrhea, nasal congestion, throat pain, throat swelling, difficulty swallowing, mouth swelling, ear pain, eye pain, visual changes CARDIOVASCULAR: Absent: chest pain, syncope, palpitations, irregular heart rate, lightheadedness , peripheral edema RESPIRATORY: Absent: cough, shortness of breath, dyspnea with exertion, orthopnea, wheezing, stridor, hemoptysis GASTROINTESTINAL: Absent: abdominal pain, abdominal distension, nausea, vomiting, diarrhea, constipation, melena, hematochezia GENITOURINARY: Absent: dysuria, frequency, urgency, hesitancy, hematuria, flank pain, genital pain MUSCULOSKELETAL: Absent: myalgia, arthralgia, joint swelling, back pain, neck pain SKIN: Absent: rash, itching, pallor HEMATOLOGIC/IMMUNOLOGIC: Absent: easy bleeding, easy bruising, lymphadenopathy, frequent infections ENDOCRINE: Absent: unexplained weight gain, unexplained weight loss, heat intolerance, cold intolerance NEUROLOGIC: Absent: headache, focal weakness or paresthesias, dizziness, unsteady gait, seizure, mental status changes, bladder or bowel incontinence PSYCHIATRIC: Absent: anxiety, depression, suicidal or homicidal ideation, hallucinations. PHYSICAL EXAMINATION Vital Signs - 24 hr 11/29/18 20:25 Temperature 98.7 F Pulse Rate 73 Respiratory 20 Rate Blood Pressure 132/63 O2 Sat by Pulse 99 Oximetry (%) GENERAL: A&Ox0, no acute distress EYES: PERRLA, EOMI, no icterus noted on exam ENT: Moist mucus membranes NECK: No JVD LUNGS: CTA, no wheezes HEART: RRR, no murmurs ABDOMEN: Obese, Soft, nontender, BS present MUSCULOSKELETAL: No CVA Tenderness EXTREMITIES: 2+ pulses, no edema. NEUROLOGICAL: unable to assess due to mental status Laboratory Results - last 24 hr 11/29/18 11/29/18 11/29/18 20:45 20:45 20:45 WBC 6.2 RBC 2.99 L Hgb 10.5 L Hct 30.0 L MCV 100.3 H MCH 35.0 H MCHC 34.9 RDW 15.5 Plt Count 94 L D MPV 9.5 D Absolute Neuts (auto) 4.7 Neutrophils % 76.3 D Lymphocytes % 14.4 D Monocytes % 6.7 Eosinophils % 2.2 Basophils % 0.4 Nucleated RBC % 0 PT with INR 14.10 H INR 1.19 H PTT (Actin FS) 35.6 Sodium 136 Potassium 5.5 H Chloride 110 H Carbon Dioxide 17 L Anion Gap 9 BUN 46 H Creatinine 1.7 H Creat Clearance w eGFR 39.82 POC Glucometer Random Glucose 372 H* Lactic Acid Calcium 9.3 Total Bilirubin 4.1 H AST 35 ALT 48 Alkaline Phosphatase 269 H Ammonia Troponin I Total Protein 6.6 Albumin 3.2 L Acetone, Qual Negative 11/29/18 11/29/18 11/29/18 20:45 20:45 20:45 WBC RBC Hgb Hct MCV MCH MCHC RDW Plt Count MPV Absolute Neuts (auto) Neutrophils % Lymphocytes % Monocytes % Eosinophils % Basophils % Nucleated RBC % PT with INR INR PTT (Actin FS) Sodium Potassium Chloride Carbon Dioxide Anion Gap BUN Creatinine Creat Clearance w eGFR POC Glucometer Random Glucose Lactic Acid 2.6 H* Calcium Total Bilirubin AST ALT Alkaline Phosphatase Ammonia 143.10 H Troponin I 0.02 Total Protein Albumin Acetone, Qual 11/29/18 21:29 WBC RBC Hgb Hct MCV MCH MCHC RDW Plt Count MPV Absolute Neuts (auto) Neutrophils % Lymphocytes % Monocytes % Eosinophils % Basophils % Nucleated RBC % PT with INR INR PTT (Actin FS) Sodium Potassium Chloride Carbon Dioxide Anion Gap BUN Creatinine Creat Clearance w eGFR POC Glucometer 369 Random Glucose Lactic Acid Calcium Total Bilirubin AST ALT Alkaline Phosphatase Ammonia Troponin I Total Protein Albumin Acetone, Qual Current Medications Insulin Aspart (Novolog Vial Sliding Scale -) 0 vial SQ Q6H [facility]; Protocol Insulin Detemir (Levemir Vial) 20 units SQ AM [facility] Lactulose (Cephulac (Oral Use)) 20 gm PO Q6H [facility] Nadolol (Corgard -) 80 mg PO DAILY [facility] Non-Formulary Medication (Omeprazole [Omeprazole]) 20 mg PO DAILY [facility] Rifaximin (Xifaxan -) 550 mg PO BID [facility] Tamsulosin HCl (Flomax -) 0.4 mg PO HS [facility] ASSESSMENT/PLAN: 73 year old male with a hx of diabetes mellitus, liver cirrhosis, esophageal varices, CHF, COPD, and hypertension who was brought in by ambulance for altered mental status after being found on the floor by the daughter in law at home #Altered Mental Status: likely 2/2 hepatic encephalopathy, improving per son since presentation, but patient is still not oriented and only speaking nonsensical phrases -MELD 20 - 19.6% mortality predicted in 3 months -as during prior admission, start lactulose 20mg q6h and titrate to when patient has around 4-5 bowel movements a day. -ordered rifaximin 550mg PO BID -IV fluids -continue nadolol 80mg daily -neurochecks -daily ammonia levels -held diuretics -falguni bili 4.1, will get direct -NPO #Diabetes Mellitus: blood glucose was elevated today -continue levemir 20 subq in the Am -levemir 15 HS -BGM -ISS #SOPHIE vs CKD: Cre 1.7 today, US done last month shows echogenically normal kidneys -recent renal US showed normal echogenicity of kidneys -gently fluid hydration with NS #Hypertension: on nadolol #FEN -NS @ 83 -NPO until AM, except meds -check K in AM #Prophylaxis -SCDs #Disposition -med surg Visit type - Emergency Visit Emergency Visit: Yes ED Registration Date: 11/29/18 Care time: The patient presented to the Emergency Department on the above date and was hospitalized for further evaluation of their emergent condition. - New Patient This patient is new to me today: Yes Date on this admission: 11/30/18 - Critical Care Critical Care patient: No
[2018-11-30] MEDS ORDERED: LACTULOSE 20 GM/30 ML UDC (FOR ORAL USE ONLY) PO SCH ×3 (01:30→06:00)
--- NOTE | 2018-11-30 01:32 | PN ---
Teaching Attending Note Name of Resident: Jerry Lopez ATTENDING PHYSICIAN STATEMENT I saw and evaluated the patient. I reviewed the resident's note and discussed the case with the resident. I agree with the resident's findings and plan as documented. SUBJECTIVE: BIBA for AMS. lives with son and daughter in law. Found on the floor unresponsive; son found him to be >400 at home and his son gave him 10 units insulin and brought him to the hospital. He was here last month for similar symptoms and was found to have hepatic encephalopathy and was seen to have improvement with lactulose and rifaxamin and he was discharged home. He sees Dr. Wynn for gastroenterology and saw Dr. Sellers when he was last here; he had recent endoscopy prior to his last admission but those records are not available at the present time. He has known esophageal varices that did not require banding per prior notes; has portal HTN on nadalol. He is protecting airway. Chart reveals repeated instances of severe hyperglycemia and patient did admit that glucsose has been out of control. He does have a hyperchloremic metabolic acidosis with no anion gap; does not appear to be DKA. 10 sys ROS done and negative aside from HPI PMH (DM, cirrhosis, esophageal varices, CHF, COPD, HTN), PSH, FH, SH reviewed Home Medications Medication Instructions Recorded Insulin Lispro [Humalog] 6 - 8 unit SQ AC 09/06/14 Omeprazole 20 mg PO DAILY 11/05/18 Tamsulosin HCl [Flomax] 0.4 mg PO HS 11/05/18 Insulin (Levemir) [Levemir Vial] 15 units SQ HS #1 vial 11/08/18 Insulin (Levemir) [Levemir Vial] 20 units SQ AM #1 vial 11/08/18 Lactulose (Oral Use) [Cephulac -] 20 gm PO TID #1 udc 11/08/18 Nadolol [Corgard -] 80 mg PO DAILY #60 tablet 11/08/18 Nystatin Powder [Nystop Powder -] 1 applic TP DAILY #1 applic 11/08/18 Rifaximin [Xifaxan -] 550 mg PO BID #60 tablet 11/08/18 OBJECTIVE: VS, labs, imaging reviewed NAD, AAOx1, resting comfortably in bed NT ND +BS; obese abdomen RRR s1/2 no mgr Lungs CTAB, w/ sym exp CN2-12 wnl, no fnd, confused and altered. Could not assess for asterixis as difficulty following commands. Protecting airway Not agitated ASSESSMENT AND PLAN: Patient presents for AMS found to have elevated NH4 and hyperglucemia Altered mental status -Likely due to hepatic encephalopathy; could not check for asterixis as he was having difficulty following commands but he is protecting his airway. -Continue QID lactulose with neuro checks and seizure precautions. Continue rifaxamin. -Consider patient's hyperglycemia, etc. as well as other etiologies. He does not have large amount of ascites. W -Assumed poor PO intake. Was on ground for unknown amount of time so check CK. Furthermore, without fever or white count or abdominal pain on exam suspicion for SBP is low so would not provide empiric coverage unless he clinically warrants. Hepatic Encephalopathy Per above DM with Hyperglycemia Hydrated in ER; we gave insulin and will continue to aggressively treat. He has had issues with glycemic control in past. No anion gap or ketones making DKA less likely. Acidosis discussed below Portal HTN Continue nadalol Cirrhosis -Noted history; spironolactone and furosemide doses to be adjusted prior to discharge Mild Hyperkalemia -No EKG changes, hydrating. Recheck in AM. Hx BPH -Noted in chart; continue tamsulosin Hx CAD -Not documented as being on ASA or statin; would be helpful to review OP records. Is at risk for GIB. No recent lipids. Hx COPD -No PFTs on file; not in exacerbation. Recommend followup with PCP and OP PFTs. NAGMA -High chloride; fluids will be LR and we should avoid NaCl. Repeat BMP and hydrate. NO ANION GAP. Will check urine ketones, etc. He was hyperglycemic but this is not frankly following a DKA pattern. He did have a lactic acidosis on presentation, but this resolved with fluid, and there was no blood gas drawn prior to hydration to comment if double disturbance, etc.
[2018-11-30] MEDS ORDERED: SODIUM CHLORIDE 1,000 ML IV SCH (01:45)
[2018-11-30] MEDS ORDERED: LACTATED RINGERS SOLUTION 1,000 ML/1,000 ML INFUS.BAG IV SCH ×2 (01:45→05:15)
[2018-11-30 02:38] LABS: URINE APPEARANCE CLEAR; URINE BILIRUBIN NEGATIVE (NEGATIVE); URINE COLOR YELLOW; URINE GLUCOSE (UA) 3+ (NEGATIVE); URINE KETONE NEGATIVE (NEGATIVE); URINE LEUK ESTERASE NEGATIVE (NEGATIVE); URINE NITRITE NEGATIVE (NEGATIVE); URINE PROTEIN NEGATIVE (NEGATIVE); URINE UROBILINOGEN 0.2 mg/dL (0.2-1.0)
[2018-11-30] MEDS ORDERED: INSULIN (NOVOLOG) ASPART 100 UNITS/ML 10ML VIAL ONE ×3 (02:42→21:09)
[2018-11-30 02:47] LABS: ANION GAP 10 MMOL/L (8-16); BLOOD UREA NITROGEN 44 mg/dL (7-18); CHLORIDE 116 mmol/L (98-107); CO2 16 mmol/L (21-32); CREATININE 1.7 mg/dL (0.55-1.3); POTASSIUM 5.1 mmol/L (3.5-5.1); SODIUM 141 mmol/L (136-145)
[2018-11-30 02:53] LABS: GLUCOSE,RANDOM 332 mg/dL (74-106)
[2018-11-30] MEDS ORDERED: INSULIN (NOVOLOG) ASPART 100 UNITS/ML 10ML VIAL SQ ONE (05:09)
[2018-11-30] MEDS: LACTULOSE 20 GM/30 ML UDC (FOR ORAL USE ONLY) PO SCH ×4 (06:10→17:15)
[2018-11-30] MEDS: INSULIN SLIDING SCALE (NOVOLOG) 1 VIAL SQ SCH ×3 (06:12→17:15)
[2018-11-30] MEDS: INSULIN (LEVEMIR) 100 UNITS/ML UNITS SQ SCH ×2 (06:12→21:27)
[2018-11-30 07:40] LABS: HEMATOCRIT 27.2 % (35.4-49); HEMOGLOBIN 9.7 GM/dL (11.7-16.9); MCHC 35.5 g/dl (32.0-35.9); MEAN CELL VOLUME 98.7 fl (80-96); MEAN PLT VOLUME 8.5 fl (7.5-11.1); PLATELET COUNT 77 K/MM3 (134-434); RBC 2.76 M/mm3 (4.00-5.60); RDW 15.8 % (11.9-15.9); WHITE BLOOD COUNT 5.2 K/mm3 (4.0-10.0)
[2018-11-30 07:59] VITALS: BMI 32.2
[2018-11-30 08:11] LABS: ANION GAP 7 MMOL/L (8-16); BLOOD UREA NITROGEN 40 mg/dL (7-18); CALCIUM 9.1 mg/dL (8.5-10.1); CHLORIDE 117 mmol/L (98-107); CO2 18 mmol/L (21-32); CREATININE 1.6 mg/dL (0.55-1.3); GLUCOSE,RANDOM 277 mg/dL (74-106); POTASSIUM 4.6 mmol/L (3.5-5.1); SODIUM 141 mmol/L (136-145)
--- NOTE | 2018-11-30 09:39 | EKG ---
Test Reason : Blood Pressure : / mmHG Vent. Rate : 068 BPM Atrial Rate : 068 BPM P-R Int : 190 ms QRS Dur : 132 ms QT Int : 410 ms P-R-T Axes : 076 096 060 degrees QTc Int : 435 ms NORMAL SINUS RHYTHM NON-SPECIFIC INTRA-VENTRICULAR CONDUCTION BLOCK CANNOT RULE OUT SEPTAL INFARCT , AGE UNDETERMINED POSSIBLE LATERAL INFARCT , AGE UNDETERMINED ABNORMAL ECG WHEN COMPARED WITH ECG OF 07-NOV-2018 13:51, PREMATURE VENTRICULAR COMPLEXES ARE NO LONGER PRESENT QUESTIONABLE CHANGE IN QRS AXIS Confirmed by TRAVIS LOZADA, ANGELICA ([id number]) on 11/30/2018 9:38:49 AM Referred By: Confirmed By:ANGELICA ROBLES MD
[2018-11-30] MEDS: NADOLOL 40 MG TABLET (FP) PO SCH ×2 (10:58→11:23)
[2018-11-30] MEDS: RIFAXIMIN 550 MG TABLET (UD) PO SCH ×3 (10:58→21:27)
[2018-11-30] MEDS: PANTOPRAZOLE 20 MG TABLET (FP) PO SCH ×2 (10:58→11:23)
--- NOTE | 2018-11-30 11:08 | HOSP ---
Subjective - Review of Symptoms Subjective: c/o urge to urinate. states he has no pain. states he does not take any medications. is unsure why he is in the hospital. denies Cp, SOB, fever, chills , N/V/C/D states he thinks he fell recently. refuses to answer questions if he has been drinking Current Medications Generic Name Dose Route Start Last Admin Trade Name Alfredo PRN Reason Stop Dose Admin Lactated Ringer's 1,000 ml in 1,000 mls @ 83 mls/hr 11/30/18 05:15 11/30/18 05:45 Lactated Ringers Solution IV 11/30/18 17:18 83 mls/hr ASDIR [facility] Administration Insulin Aspart 1 vial 11/30/18 05:06 11/30/18 06:12 Novolog Vial Sliding Scale - SQ Not Given Q6HPO [facility] Protocol Insulin Detemir 20 units 11/30/18 07:00 11/30/18 06:12 Levemir Vial SQ 20 units AM [facility] Administration Insulin Detemir 15 units 11/30/18 22:00 Levemir Vial SQ HS [facility] Lactulose 20 gm 11/30/18 05:06 11/30/18 06:31 Cephulac (Oral Use) PO Not Given Q6HPO [facility] Nadolol 80 mg 11/30/18 10:00 11/30/18 10:58 Corgard - PO Not Given DAILY [facility] Pantoprazole Sodium 20 mg 11/30/18 10:00 11/30/18 10:58 Protonix - PO Not Given DAILY [facility] Rifaximin 550 mg 11/30/18 10:00 11/30/18 10:58 Xifaxan - PO Not Given BID [facility] Tamsulosin HCl 0.4 mg 11/30/18 22:00 Flomax - PO HS [facility] Last Vital Signs Temp Pulse Resp BP Pulse Ox 98.6 F 78 20 141/58 L 96 11/30/18 10:00 11/30/18 10:00 11/30/18 10:00 11/30/18 10:00 11/30/18 07:44 General slow to respond, some slurring of words, A&O x2 (self and location) CV S1 S2 RRR no murmrur/rub/gallop Lungs decreased at bases. no crackles or wheezing Abdomen soft +distended no rebound or guarding. unable to Extremities trace pitting edema, significant circumferential ecchymosis on B/L UE, +[employer] Neuro CN grossly intact, does not follow 2 part commands skin noted to have petechaie all over the face CBCD WBC 5.2 K/mm3 (4.0-10.0) 11/30/18 07:00 RBC 2.76 M/mm3 (4.00-5.60) L 11/30/18 07:00 Hgb 9.7 GM/dL (11.7-16.9) L 11/30/18 07:00 Hct 27.2 % (35.4-49) L 11/30/18 07:00 MCV 98.7 fl (80-96) H 11/30/18 07:00 MCHC 35.5 g/dl (32.0-35.9) 11/30/18 07:00 RDW 15.8 % (11.9-15.9) 11/30/18 07:00 Plt Count 77 K/MM3 (134-434) L 11/30/18 07:00 MPV 8.5 fl (7.5-11.1) D 11/30/18 07:00 CMP Sodium 141 mmol/L (136-145) 11/30/18 07:00 Potassium 4.6 mmol/L (3.5-5.1) 11/30/18 07:00 Chloride 117 mmol/L (98-107) H 11/30/18 07:00 Carbon Dioxide 18 mmol/L (21-32) L 11/30/18 07:00 Anion Gap 7 MMOL/L (8-16) L 11/30/18 07:00 BUN 40 mg/dL (7-18) H 11/30/18 07:00 Creatinine 1.6 mg/dL (0.55-1.3) H 11/30/18 07:00 Creat Clearance w eGFR 42.70 (>60) 11/30/18 07:00 Calcium 9.1 mg/dL (8.5-10.1) 11/30/18 07:00 Total Bilirubin 4.1 mg/dL (0.2-1) H 11/29/18 20:45 AST 35 U/L (15-37) 11/29/18 20:45 ALT 48 U/L (13-61) 11/29/18 20:45 Alkaline Phosphatase 269 U/L (45-117) H 11/29/18 20:45 Total Protein 6.6 g/dl (6.4-8.2) 11/29/18 20:45 Albumin 3.2 g/dl (3.4-5.0) L 11/29/18 20:45 Assessment and Plan 73yo M with PMH DM, CHF, COPD, HTN, CAD, cirrhosis, esophageal varices brought to the Er by the son as he was found unresponsive at home and found to have FS 400. had recent hospitalization last month appears to be with similar presentation. 1. Acute toxic metabolic encephalopathy- due to hyperglycemia vs hepatic encephalopathy. clinically improved. Ammonia level is lower today although he has not taken any lactulose or had any BM. unclear what his baseline is and will need to get collateral from family. Head CT is negative. pt has not been compliant with medications. low concern for SBP although his stomach appears to be distended as its not tender and no signs of infection. alert enough now to re-start home medications including those for Cirrhosis. will monitor neurological status. titrate lactulose for 2-3BM/day. fall precautions 2. SOPHIE- due to dehydration. cont LR and monitor for repsonse,. avoid nephrotoxic agents. CT abdomen and pelvis ordered will f/u to evaluate for any obstructive causes. CPK normal 3. Hyperkalemia- due to SOPHIE. now resolved 4. Hyperbilirubinemia- trending up from previous admission. CT abdomen and pelvis pending. RUQ is not tender. will order repeat at this time. u/s to evaluate for obstruction. re-start cirrhosis meds. GI consulted 5. NAGMA- unclear hx that could contribute. has since resolved. cont IVF iwth LR. 6. esophageal varices- low concern for bleeding. re-start nadolol 7. HTN-does not take medication. BP controlled. will monitor and star medications as needed 8. CAD- liekly not on asa due to risk factors. no signs of ACS 9. thrombocytopenia- due to cirrhosis. stable at baseline. no signs of bleeding 10. DVT ppx- place SCD. would avoid pharmacologic in setting of thrombocytopenia Physical Examination Vital Signs: Vital Signs Temperature 98.6 F 11/30/18 10:00 Pulse Rate 78 05/04/19 10:00 Respiratory Rate 20 11/30/18 10:00 Blood Pressure 141/58 L 11/30/18 10:00 O2 Sat by Pulse Oximetry (%) 96 11/30/18 07:44 Labs: CBC, BMP 11/30/18 07:00 11/30/18 07:00
[2018-11-30] MEDS ORDERED: PT OWN MED DRAWER 7, Y5N ONE (11:18)
[2018-11-30 12:40] LABS: BILIRUBIN,DIRECT 0.6 mg/dL (0.0-0.2)
[2018-11-30 14:18] LABS: ANION GAP 7 MMOL/L (8-16); BLOOD UREA NITROGEN 39 mg/dL (7-18); CHLORIDE 119 mmol/L (98-107); CO2 17 mmol/L (21-32); CREATININE 1.5 mg/dL (0.55-1.3); GLUCOSE,RANDOM 258 mg/dL (74-106); POTASSIUM 4.9 mmol/L (3.5-5.1); SODIUM 142 mmol/L (136-145)
[2018-11-30 14:25] LABS: ALBUMIN 2.9 g/dl (3.4-5.0); BILIRUBIN,DIRECT 0.7 mg/dL (0.0-0.2); BILIRUBIN,TOTAL 4.8 mg/dL (0.2-1); TOT PROT 5.7 g/dl (6.4-8.2)
--- NOTE | 2018-11-30 15:11 | CON.GI ---
Consult Consult Specialty:: GI Reason for Consultation:: Hepatic encephalopathy - History of Present Illness History of Present Illness: 73yo M with PMH DM, CHF, COPD, HTN, CAD, cirrhosis, esophageal varices brought to the Er by the son as he was found unresponsive at home and found to have FS 400. had recent hospitalization last month appears to be with similar presentation October 2018. - Past Medical History Cardio/Vascular: Yes: CHF, HTN. No: AFIB, CAD Pulmonary: Yes: COPD Gastrointestinal: Yes: Esophageal Varices Hepatobiliary: Yes: Cirrhosis (Alcohol induced) Renal/: Yes: BPH Infectious Disease: Yes: Other (pneumonia) Endocrine: Yes: Diabetes Mellitus - Past Surgical History Past Surgical History: Yes: Hernia Repair, Upper Endoscopy - Alcohol/Substance Use Hx Alcohol Use: Yes (former alcoholic) History of Substance Use: reports: None, Cocaine (ex intranasal cocaine use) - Smoking History Smoking history: Current every day smoker Have you smoked in the past 12 months: Yes Aproximately how many cigarettes per day: 10 If you are a former smoker, when did you quit?: smokes daily - Social History Usual Living Arrangement: Alone ADL: Independent Occupation: son lives upstairs History of Recent Travel: No Home Medications - Allergies Allergies/Adverse Reactions: Allergies Allergy/AdvReac Type Severity Reaction Status Date / Time No Known Allergies Allergy Verified 11/04/18 23:23 - Home Medications Home Medications: Ambulatory Orders Insulin Lispro [Humalog] 6 - 8 unit SQ AC 09/06/14 Omeprazole 20 mg PO DAILY 11/05/18 Tamsulosin HCl [Flomax] 0.4 mg PO HS 11/05/18 Insulin (Levemir) [Levemir Vial] 15 units SQ HS #1 vial 11/08/18 Insulin (Levemir) [Levemir Vial] 20 units SQ AM #1 vial 11/08/18 Lactulose (Oral Use) [Cephulac -] 20 gm PO TID #1 udc 11/08/18 Nadolol [Corgard -] 80 mg PO DAILY #60 tablet 11/08/18 Nystatin Powder [Nystop Powder -] 1 applic TP DAILY #1 applic 11/08/18 Rifaximin [Xifaxan -] 550 mg PO BID #60 tablet 11/08/18 Physical Exam-GI Vital Signs: Vital Signs Temperature 98.6 F 11/30/18 10:00 Pulse Rate 78 11/30/18 10:00 Respiratory Rate 20 11/30/18 10:00 Blood Pressure 141/58 L 11/30/18 10:00 O2 Sat by Pulse Oximetry (%) 96 11/30/18 07:44 Constitutional: Yes: No Distress Eyes: Yes: Other (echymmosis right eye) HENT: Yes: Normocephalic Neck: Yes: Trachea Midline Cardiovascular: Yes: Regular Rate and Rhythm Respiratory: Yes: Diminished (at bases) Gastrointestinal Inspection: Yes: Distention ...Auscultate: Yes: Normoactive Bowel Sounds ...Palpate: Yes: Soft. No: Firm/Rigid, Guarding, Hepatomegaly, Mass, Pulsatile Mass, Splenomegaly, Tenderness Musculoskeletal: Yes: Other (both forearms have ecchymosis) Edema: No Labs: CBC, BMP 11/30/18 07:00 11/30/18 13:00 INR, PTT INR 1.19 (0.83-1.09) H 11/29/18 20:45 Problem List - Problems (1) Hepatic encephalopathy Assessment/Plan: mild R> contiue Xifaxan 550mg bid Lactulose 30cc bid advance diet as tolerated Code(s): K72.90 - HEPATIC FAILURE, UNSPECIFIED WITHOUT COMA (2) Alcoholic cirrhosis of liver without ascites Assessment/Plan: R> AFP level if not done yet Abdominal ultrasound every 6 mos to screen for Hepatoma' AFP level belkis 4 mos Code(s): K70.30 - ALCOHOLIC CIRRHOSIS OF LIVER WITHOUT ASCITES
[2018-11-30] MEDS: TAMSULOSIN HCL 0.4 MG CAP PO SCH (21:27)
[2018-12-01] MEDS: LACTULOSE 20 GM/30 ML UDC (FOR ORAL USE ONLY) PO SCH ×5 (00:08→23:28)
[2018-12-01] MEDS: INSULIN SLIDING SCALE (NOVOLOG) 1 VIAL SQ SCH ×5 (00:14→23:32)
[2018-12-01] MEDS: INSULIN (LEVEMIR) 100 UNITS/ML UNITS SQ SCH ×2 (06:39→21:31)
[2018-12-01] MEDS ORDERED: INSULIN (NOVOLOG) ASPART 100 UNITS/ML 10ML VIAL ONE ×4 (06:41→21:09)
[2018-12-01 08:09] LABS: BASO % 0.4 % (0-2.0); EOS % 1.7 % (0-4.5); HEMATOCRIT 24.6 % (35.4-49); HEMOGLOBIN 8.7 GM/dL (11.7-16.9); LYMPH % 18.8 % (8-40); MCH 35.2 pg (25.7-33.7); MCHC 35.5 g/dl (32.0-35.9); MEAN PLT VOLUME 8.4 fl (7.5-11.1); MONO % 9.2 % (3.8-10.2); NEUT % 69.9 % (42.8-82.8); PLATELET COUNT 65 K/MM3 (134-434); RBC 2.48 M/mm3 (4.00-5.60); RDW 15.5 % (11.9-15.9); WHITE BLOOD COUNT 6.5 K/mm3 (4.0-10.0)
[2018-12-01 08:43] LABS: ALBUMIN 2.7 g/dl (3.4-5.0); ALK PHOS 155 U/L (45-117); ANION GAP 8 MMOL/L (8-16); BILIRUBIN,TOTAL 5.7 mg/dL (0.2-1); BLOOD UREA NITROGEN 31 mg/dL (7-18); CALCIUM 8.8 mg/dL (8.5-10.1); CHLORIDE 119 mmol/L (98-107); CO2 18 mmol/L (21-32); CREATININE 1.7 mg/dL (0.55-1.3); GLUCOSE,RANDOM 174 mg/dL (74-106); POTASSIUM 4.8 mmol/L (3.5-5.1); SGOT/AST 29 U/L (15-37); SGPT/ALT 38 U/L (13-61); SODIUM 144 mmol/L (136-145); TOT PROT 5.3 g/dl (6.4-8.2)
[2018-12-01] MEDS ORDERED: PT OWN MED DRAWER 7, Y5N ONE (11:03)
[2018-12-01] MEDS: NADOLOL 40 MG TABLET (FP) PO SCH (11:06)
[2018-12-01] MEDS: RIFAXIMIN 550 MG TABLET (UD) PO SCH ×2 (11:06→21:29)
[2018-12-01] MEDS: PANTOPRAZOLE 20 MG TABLET (FP) PO SCH (11:07)
--- NOTE | 2018-12-01 11:36 | PN ---
Physical Exam: SUBJECTIVE: Patient seen and examined at bedside. Much more awake and alert than before, oriented x3. Not in any pain. Patient is hungry. Denies any complaints. OBJECTIVE: Vital Signs Period Temp Pulse Resp BP Sys/Block Pulse Ox Last 24 Hr 98.5 F-99.1 F 75-80 20-20 138-140/49-63 96 GENERAL: A&Ox3, no acute distress EYES: PERRLA, EOMI, no icterus noted on exam ENT: Moist mucus membranes NECK: No JVD LUNGS: CTA, no wheezes HEART: RRR, no murmurs ABDOMEN: Obese, Soft, nontender, BS present MUSCULOSKELETAL: No CVA Tenderness EXTREMITIES: 2+ pulses, no edema. NEUROLOGICAL: mental status improved, neurologic exam without focal deficits Laboratory Results - last 24 hr 11/30/18 11/30/18 11/30/18 07:00 11:49 13:00 WBC RBC Hgb Hct MCV MCH MCHC RDW Plt Count MPV Absolute Neuts (auto) Neutrophils % Lymphocytes % Monocytes % Eosinophils % Basophils % Nucleated RBC % Sodium 141 142 Potassium 4.6 4.9 Chloride 117 H 119 H Carbon Dioxide 18 L 17 L Anion Gap 7 L 7 L BUN 40 H 39 H Creatinine 1.6 H 1.5 H Creat Clearance w eGFR 42.70 46.00 POC Glucometer 242 Random Glucose 277 H 258 H Calcium 9.1 9.0 Total Bilirubin Direct Bilirubin 0.6 H AST ALT Alkaline Phosphatase Total Protein Albumin TSH 1.40 D 11/30/18 11/30/18 11/30/18 13:00 17:13 21:25 WBC RBC Hgb Hct MCV MCH MCHC RDW Plt Count MPV Absolute Neuts (auto) Neutrophils % Lymphocytes % Monocytes % Eosinophils % Basophils % Nucleated RBC % Sodium Potassium Chloride Carbon Dioxide Anion Gap BUN Creatinine Creat Clearance w eGFR POC Glucometer 220 212 Random Glucose Calcium Total Bilirubin 4.8 H Direct Bilirubin 0.7 H AST 34 ALT 43 Alkaline Phosphatase 185 H Total Protein 5.7 L Albumin 2.9 L TSH 12/01/18 12/01/18 12/01/18 00:11 06:09 07:10 WBC 6.5 RBC 2.48 L Hgb 8.7 L Hct 24.6 L MCV 99.0 H MCH 35.2 H MCHC 35.5 RDW 15.5 Plt Count 65 L MPV 8.4 Absolute Neuts (auto) 4.6 Neutrophils % 69.9 Lymphocytes % 18.8 D Monocytes % 9.2 Eosinophils % 1.7 Basophils % 0.4 Nucleated RBC % 0 Sodium Potassium Chloride Carbon Dioxide Anion Gap BUN Creatinine Creat Clearance w eGFR POC Glucometer 188 160 Random Glucose Calcium Total Bilirubin Direct Bilirubin AST ALT Alkaline Phosphatase Total Protein Albumin TSH 12/01/18 12/01/18 07:10 11:09 WBC RBC Hgb Hct MCV MCH MCHC RDW Plt Count MPV Absolute Neuts (auto) Neutrophils % Lymphocytes % Monocytes % Eosinophils % Basophils % Nucleated RBC % Sodium 144 Potassium 4.8 Chloride 119 H Carbon Dioxide 18 L Anion Gap 8 BUN 31 H Creatinine 1.7 H Creat Clearance w eGFR 39.82 POC Glucometer 154 Random Glucose 174 H Calcium 8.8 Total Bilirubin 5.7 H Direct Bilirubin AST 29 ALT 38 Alkaline Phosphatase 155 H Total Protein 5.3 L Albumin 2.7 L TSH Active Medications Generic Name Dose Route Start Last Admin Trade Name Freq PRN Reason Stop Dose Admin Insulin Aspart 1 vial 11/30/18 05:06 12/01/18 11:13 Novolog Vial Sliding Scale - SQ 2 units Q6HPO [facility] Administration Protocol Insulin Detemir 20 units 11/30/18 07:00 12/01/18 06:39 Levemir Vial SQ 20 units AM [facility] Administration Insulin Detemir 15 units 11/30/18 22:00 11/30/18 21:27 Levemir Vial SQ 15 units HS [facility] Administration Lactulose 20 gm 11/30/18 05:06 12/01/18 11:12 Cephulac (Oral Use) PO 20 gm Q6HPO [facility] Administration Nadolol 80 mg 11/30/18 10:00 12/01/18 11:06 Corgard - PO 80 mg DAILY [facility] Administration Pantoprazole Sodium 20 mg 11/30/18 10:00 12/01/18 11:07 Protonix - PO 20 mg DAILY [facility] Administration Rifaximin 550 mg 11/30/18 10:00 12/01/18 11:06 Xifaxan - PO 550 mg BID [facility] Administration Tamsulosin HCl 0.4 mg 11/30/18 22:00 11/30/18 21:27 Flomax - PO 0.4 mg HS [facility] Administration Current Medications Insulin Aspart (Novolog Vial Sliding Scale -) 1 vial SQ Q6HPO [facility]; Protocol Last Admin: 12/01/18 11:13 Dose: 2 units Insulin Detemir (Levemir Vial) 20 units SQ AM [facility] Last Admin: 12/01/18 06:39 Dose: 20 units Insulin Detemir (Levemir Vial) 15 units SQ HS [facility] Last Admin: 11/30/18 21:27 Dose: 15 units Lactulose (Cephulac (Oral Use)) 20 gm PO Q6HPO [facility] Last Admin: 12/01/18 11:12 Dose: 20 gm Nadolol (Corgard -) 80 mg PO DAILY [facility] Last Admin: 12/01/18 11:06 Dose: 80 mg Pantoprazole Sodium (Protonix -) 20 mg PO DAILY [facility] Last Admin: 12/01/18 11:07 Dose: 20 mg Rifaximin (Xifaxan -) 550 mg PO BID [facility] Last Admin: 12/01/18 11:06 Dose: 550 mg Tamsulosin HCl (Flomax -) 0.4 mg PO HS [facility] Last Admin: 11/30/18 21:27 Dose: 0.4 mg CBC, BMP 12/01/18 07:10 12/01/18 07:10 ASSESSMENT/PLAN: 73 year old male with a hx of diabetes mellitus, liver cirrhosis, esophageal varices, CHF, COPD, and hypertension who was brought in by ambulance for altered mental status after being found on the floor by the daughter in law at home #Altered Mental Status: likely 2/2 hepatic encephalopathy, improving, patient had several bowel movements overnight with lactulose and this AM -MELD 20 - 19.6% mortality predicted in 3 months -continue lactulose (per GI, 30cc BID) and rifaximin, titrate to BM 3-4 a day -IV fluids -continue nadolol 80mg daily -neurochecks -daily ammonia levels -will advance diet to soft #Diabetes Mellitus: blood glucose was elevated today -continue levemir 20 subq in the Am -levemir 15 HS and 20 in AM -BGM -ISS #SOPHIE vs CKD: Cre 1.7 today -recent renal US showed normal echogenicity of kidneys -gently fluid hydration with NS #Hypertension: on nadolol #FEN -no standing fluids -soft diet -monitor lytes #Prophylaxis -SCDs #Disposition -med surg Visit type - Emergency Visit Emergency Visit: Yes ED Registration Date: 11/29/18 Care time: The patient presented to the Emergency Department on the above date and was hospitalized for further evaluation of their emergent condition. - New Patient This patient is new to me today: No - Critical Care Critical Care patient: No
--- NOTE | 2018-12-01 14:27 | PN ---
Teaching Attending Note Name of Resident: Jerry Lopez ATTENDING PHYSICIAN STATEMENT I saw and evaluated the patient. I reviewed the resident's note and discussed the case with the resident. I agree with the resident's findings and plan as documented. SUBJECTIVE: OBJECTIVE: ASSESSMENT AND PLAN: this is a 73yo M with PMH DM, CHF, COPD, HTN, CAD, cirrhosis, esophageal varices brought to the Er by the son as he was found unresponsive at home and found to have FS 400. had recent hospitalization last month for similar presentation. 1. Acute toxic metabolic encephalopathy- due to hyperglycemia vs hepatic encephalopathy. clinically improved. Ammonia level is lower today although he has not taken any lactulose or had any BM. unclear what his baseline is and will need to get collateral from family. Head CT is negative. pt has not been compliant with medications. low concern for SBP although his stomach appears to be distended as its not tender and no signs of infection. alert enough now to re-start home medications including those for Cirrhosis. will monitor neurological status. titrate lactulose for 2-3BM/day. fall precautions 2. SOPHIE- due to dehydration. cont LR and monitor for repsonse,. avoid nephrotoxic agents. CT abdomen and pelvis ordered will f/u to evaluate for any obstructive causes. CPK normal 3. Hyperkalemia- due to SOPHIE. now resolved 4. Hyperbilirubinemia- trending up from previous admission. CT abdomen and pelvis pending. RUQ is not tender. will order repeat at this time. u/s to evaluate for obstruction. re-start cirrhosis meds. GI consulted 5. NAGMA- unclear hx that could contribute. has since resolved. cont IVF iwth LR. 6. esophageal varices- low concern for bleeding. re-start nadolol 7. HTN-does not take medication. BP controlled. will monitor and star medications as needed 8. CAD- liekly not on asa due to risk factors. no signs of ACS 9. thrombocytopenia- due to cirrhosis. stable at baseline. no signs of bleeding 10. DVT ppx- place SCD. would avoid pharmacologic in setting of thrombocytopenia
[2018-12-01] MEDS: TAMSULOSIN HCL 0.4 MG CAP PO SCH (21:29)
[2018-12-02] MEDS: LACTULOSE 20 GM/30 ML UDC (FOR ORAL USE ONLY) PO SCH ×3 (05:52→17:09)
[2018-12-02] MEDS: INSULIN SLIDING SCALE (NOVOLOG) 1 VIAL SQ SCH ×4 (05:52→22:55)
[2018-12-02] MEDS: INSULIN (LEVEMIR) 100 UNITS/ML UNITS SQ SCH ×2 (06:05→22:53)
[2018-12-02] MEDS ORDERED: INSULIN (NOVOLOG) ASPART 100 UNITS/ML 10ML VIAL ONE ×2 (06:06→22:48)
[2018-12-02 09:41] LABS: BASO % 0.3 % (0-2.0); EOS % 3.7 % (0-4.5); HEMATOCRIT 23.9 % (35.4-49); HEMOGLOBIN 8.1 GM/dL (11.7-16.9); LYMPH % 19.1 % (8-40); MCH 34.7 pg (25.7-33.7); MCHC 34.1 g/dl (32.0-35.9); MEAN CELL VOLUME 101.8 fl (80-96); MEAN PLT VOLUME 8.7 fl (7.5-11.1); MONO % 13.1 % (3.8-10.2); NEUT % 63.8 % (42.8-82.8); PLATELET COUNT 53 K/MM3 (134-434); RBC 2.35 M/mm3 (4.00-5.60); RDW 16.2 % (11.9-15.9); WHITE BLOOD COUNT 4.1 K/mm3 (4.0-10.0)
[2018-12-02] MEDS: PANTOPRAZOLE 20 MG TABLET (FP) PO SCH (10:07)
[2018-12-02] MEDS: RIFAXIMIN 550 MG TABLET (UD) PO SCH ×2 (10:07→22:53)
[2018-12-02 10:08] LABS: INR 1.33 (0.83-1.09); PROTHROMBIN TIME (PATIENT) 15.7 SEC (9.7-13.0)
[2018-12-02 10:11] LABS: ALBUMIN 2.6 g/dl (3.4-5.0); ALK PHOS 165 U/L (45-117); ANION GAP 8 MMOL/L (8-16); BILIRUBIN,TOTAL 4.7 mg/dL (0.2-1); BLOOD UREA NITROGEN 28 mg/dL (7-18); CALCIUM 8.1 mg/dL (8.5-10.1); CHLORIDE 110 mmol/L (98-107); CO2 17 mmol/L (21-32); CREATININE 1.6 mg/dL (0.55-1.3); MAGNESIUM 1.9 mg/dL (1.8-2.4); PHOSPHOROUS 2.5 mg/dL (2.5-4.9); POTASSIUM 4.9 mmol/L (3.5-5.1); SGOT/AST 31 U/L (15-37); SGPT/ALT 37 U/L (13-61); SODIUM 135 mmol/L (136-145); TOT PROT 5.3 g/dl (6.4-8.2)
[2018-12-02 10:58] LABS: GLUCOSE,RANDOM 335 mg/dL (74-106)
[2018-12-02] MEDS ORDERED: PT OWN MED DRAWER 7, Y5N ONE (11:42)
[2018-12-02] MEDS: NADOLOL 40 MG TABLET (FP) PO SCH (11:47)
--- NOTE | 2018-12-02 13:55 | PN ---
Progress Note (short form) - Note Progress Note: Patient seen and examined Labs reviewed Patient somewhat altered after lunch per family Vital Signs Temp 99.0 F 12/02/18 05:05 Pulse 83 12/02/18 11:51 Resp 20 12/02/18 11:51 BP 103/60 12/02/18 11:51 Pulse Ox 95 12/01/18 22:00 NAD, sleepy but arousable Abdomen soft but distended +ecchymoses of arm and face CBC, BMP 12/02/18 09:22 12/02/18 09:22 Hepatic Panel Total Bilirubin 4.7 mg/dL (0.2-1) H 12/02/18 09:22 Direct Bilirubin 0.7 mg/dL (0.0-0.2) H 11/30/18 13:00 AST 31 U/L (15-37) 12/02/18 09:22 ALT 37 U/L (13-61) 12/02/18 09:22 Alkaline Phosphatase 165 U/L (45-117) H 12/02/18 09:22 Albumin 2.6 g/dl (3.4-5.0) L 12/02/18 09:22 Impression: Altered mental status - due to hyperglycemia causing PSE. - would dudley cx - blood and urine - to rule out infectious etiologies - f/u abdominal imaging - if ascites present should have diagnostic tap to r/o SBP - control of fsg - continue lactulose/rifaximin, titrate to 3bm/d
--- NOTE | 2018-12-02 14:16 | DS ---
Physical Exam: SUBJECTIVE: Patient seen and examined. Pt. being brought cake and lasagna by family in addition to hospital food. Pt. requiring increasing amounts of insulin to cover. OBJECTIVE: Vital Signs Period Temp Pulse Resp BP Sys/Block Pulse Ox Last 24 Hr 98.7 F-99.0 F 78-83 20-20 103-135/52-60 95 PHYSICAL EXAM GENERAL: The patient is awake, alert, and oriented to person an place, states year is 2018 or 2019, in no acute distress. HEAD: Normal with no signs of trauma. EYES: PERRL, extraocular movements intact, sclera anicteric, conjunctiva clear. ENT: Ears normal, nares patent, moist mucous membranes. LUNGS: Bibasilar crackles, no wheezing, no accessory muscle use. HEART: Regular rate and rhythm, S1, S2 without murmur ABDOMEN: Soft, nontender, nondistended, normoactive bowel sounds, no guarding, no rebound, Steward draining Karen gold urine EXTREMITIES: 2+ raidal pulses, warm, well-perfused,nocalf tenderness, no edema. NEUROLOGICAL: Normal speech, gait not observed. PSYCH: Normal mood, normal affect. SKIN: Warm, dry, normal turgor, upper extremity "old" ecchymosis. LABS Laboratory Results - last 24 hr 12/01/18 12/01/18 12/01/18 17:02 21:30 23:31 WBC RBC Hgb Hct MCV MCH MCHC RDW Plt Count MPV Absolute Neuts (auto) Neutrophils % Lymphocytes % Monocytes % Eosinophils % Basophils % Nucleated RBC % PT with INR INR Sodium Potassium Chloride Carbon Dioxide Anion Gap BUN Creatinine Creat Clearance w eGFR POC Glucometer 407 203 246 Random Glucose Calcium Phosphorus Magnesium Total Bilirubin AST ALT Alkaline Phosphatase Total Protein Albumin 12/02/18 12/02/18 12/02/18 05:51 09:22 09:22 WBC 4.1 RBC 2.35 L Hgb 8.1 L Hct 23.9 L MCV 101.8 H MCH 34.7 H MCHC 34.1 RDW 16.2 H Plt Count 53 L MPV 8.7 Absolute Neuts (auto) 2.6 Neutrophils % 63.8 Lymphocytes % 19.1 Monocytes % 13.1 H Eosinophils % 3.7 D Basophils % 0.3 Nucleated RBC % 0 PT with INR INR Sodium 135 L Potassium 4.9 Chloride 110 H Carbon Dioxide 17 L Anion Gap 8 BUN 28 H Creatinine 1.6 H Creat Clearance w eGFR 42.70 POC Glucometer 220 Random Glucose 335 H* Calcium 8.1 L Phosphorus 2.5 Magnesium 1.9 Total Bilirubin 4.7 H AST 31 ALT 37 Alkaline Phosphatase 165 H Total Protein 5.3 L Albumin 2.6 L 12/02/18 12/02/18 12/02/18 09:22 10:06 13:23 WBC RBC Hgb Hct MCV MCH MCHC RDW Plt Count MPV Absolute Neuts (auto) Neutrophils % Lymphocytes % Monocytes % Eosinophils % Basophils % Nucleated RBC % PT with INR 15.70 H INR 1.33 H Sodium Potassium Chloride Carbon Dioxide Anion Gap BUN Creatinine Creat Clearance w eGFR POC Glucometer 359 384 Random Glucose Calcium Phosphorus Magnesium Total Bilirubin AST ALT Alkaline Phosphatase Total Protein Albumin HOSPITAL COURSE: Date of Admission:11/29/18 Date of Discharge: 12/02/18 Pt. is a 73 y.o. M w/ PMHx. of IDDM, Liver Cirrhosis, CHF, COPD, and HTN, admitted for altered mental status secondary to lactulose non-compliance. Pt. was restarted on lactulose with improvement of symptoms and counseled to adhere to medication regimen. Pt. found to be hyperglycemic to 300s on admission secondary to medication and diet non-compliance even through out hospital stay. Renal US showed normal echogenicity of kidneys. CT- A/P showed portal HTN, varices and cholelithiasis w/o cholecystitis. Comorbid conditions treated with home dose regimens. Pt. evaluated by Physical Therapy and decision was agreed upon that Pt. would benefit from short stay at a SNF. Specialist referrals discussed and detailed as below. Gastroenterology consult appreciated. Hospital course discussed agreed upon with Pt., HCP, and medical staff. Minutes to complete discharge: 45 Discharge Summary Reason For Visit: HEPATIC ENCEPHALOPATHY, HYPERKALEMIA Current Active Problems Alcoholic cirrhosis of liver without ascites (Acute) Hepatic encephalopathy (Acute) Hepatic encephalopathy (Acute) Hyperglycemia (Acute) Condition: Improved - Instructions Diet, Activity, Other Instructions: You came in for being very confused. We treated you for the confusion by resuming your home medications. We imaged your head and found that your have chronic inflammation of your sinuses. Please follow up and discuss with your Primary care Physician. We imaged your Abdomen and found that your have a stable compression fracture at T12 without involvement of the spinal cord. We imaged your liver and found that you have gallstones tat are not obstructing or causing inflammation, signs of chronic liver disease, and elevated portal vein pressure. Please continue with Rifaximin 550mg TWICE a day Please continue with your Lactulose 30cc TWICE a day to ensure you have 3-4 Bowel movements per day. You need to take this medication so that your Ammonia doesnt go too high and you develop severe confusion. Please follow up AFP (a tumor marker) EVERY 4 MONTHs, to monitor your liver for cancer Please follow up with a Liver Ultrasound EVERY 6 MONTHs, to monitor your liver for cancer Please follow up with your PCP within 1 week. If you dod not have one we have provided one for you, Dr. Matson. Please follow up with your Mediation Commissioner, Dr. Wynn, within 1 week. Referrals: ON STAFF,NOT [Non Staff, Medical] - 1 Week (Please follow up with Dr. Wynn within 1 weeks for follow-up) Jarad Matson MD [Staff Physician] - 1 Week Disposition: [facility] - Home Medications Comprehensive Discharge Medication List: Ambulatory Orders Insulin Lispro [Humalog] 6 - 8 unit SQ AC 09/06/14 Omeprazole 20 mg PO DAILY 11/05/18 Tamsulosin HCl [Flomax] 0.4 mg PO HS 11/05/18 Insulin (Levemir) [Levemir Vial] 15 units SQ HS #1 vial 11/08/18 Insulin (Levemir) [Levemir Vial] 20 units SQ AM #1 vial 11/08/18 Nadolol [Corgard -] 80 mg PO DAILY #60 tablet 11/08/18 Nystatin Powder [Nystop Powder -] 1 applic TP DAILY #1 applic 11/08/18 Rifaximin [Xifaxan -] 550 mg PO BID #60 tablet 11/08/18 Lactulose (Oral Use) [Cephulac -] 20 gm PO BID #1 udc 12/02/18 This patient is new to me today: Yes Date on this admission: 12/02/18 Emergency Visit: Yes ED Registration Date: 11/29/18 Care time: The patient presented to the Emergency Department on the above date and was hospitalized for further evaluation of their emergent condition. Critical Care patient: No - Discharge Referral Referred to [facility] No
--- NOTE | 2018-12-02 17:12 | PN ---
Teaching Attending Note Name of Resident: Coleman Ferguson ATTENDING PHYSICIAN STATEMENT I saw and evaluated the patient. I reviewed the resident's note and discussed the case with the resident. I agree with the resident's findings and plan as documented. SUBJECTIVE: Feeling better - more alert and oriented. No abdominal pain/nausea/ vomiting. Complains of soft stool. No fever/chills. OBJECTIVE: Afebrile, Hemodynamically Stable. Last Vital Signs Temp Pulse Resp BP Pulse Ox 98.3 F 73 20 132/57 L 95 12/02/18 14:56 12/02/18 14:56 12/02/18 11:51 12/02/18 14:56 12/01/18 22:00 HEENT - Atraumatic, Normocephalic. Heart - S1, S2, RRR Lungs - good air entry bilaterally Abdomen - Soft, non-tender. Bowel Sounds normal. - Steward in situ Extremities - trace edema, no calf tenderness. Neuro - AAO x 3. Tone/Power normal all 4 extremities. Laboratory Results - last 24 hr 12/01/18 12/01/18 12/02/18 21:30 23:31 05:51 WBC RBC Hgb Hct MCV MCH MCHC RDW Plt Count MPV Absolute Neuts (auto) Neutrophils % Lymphocytes % Monocytes % Eosinophils % Basophils % Nucleated RBC % PT with INR INR Sodium Potassium Chloride Carbon Dioxide Anion Gap BUN Creatinine Creat Clearance w eGFR POC Glucometer 203 246 220 Random Glucose Calcium Phosphorus Magnesium Total Bilirubin AST ALT Alkaline Phosphatase Total Protein Albumin 12/02/18 12/02/18 12/02/18 09:22 09:22 09:22 WBC 4.1 RBC 2.35 L Hgb 8.1 L Hct 23.9 L MCV 101.8 H MCH 34.7 H MCHC 34.1 RDW 16.2 H Plt Count 53 L MPV 8.7 Absolute Neuts (auto) 2.6 Neutrophils % 63.8 Lymphocytes % 19.1 Monocytes % 13.1 H Eosinophils % 3.7 D Basophils % 0.3 Nucleated RBC % 0 PT with INR 15.70 H INR 1.33 H Sodium 135 L Potassium 4.9 Chloride 110 H Carbon Dioxide 17 L Anion Gap 8 BUN 28 H Creatinine 1.6 H Creat Clearance w eGFR 42.70 POC Glucometer Random Glucose 335 H* Calcium 8.1 L Phosphorus 2.5 Magnesium 1.9 Total Bilirubin 4.7 H AST 31 ALT 37 Alkaline Phosphatase 165 H Total Protein 5.3 L Albumin 2.6 L 12/02/18 12/02/18 12/02/18 10:06 13:23 17:02 WBC RBC Hgb Hct MCV MCH MCHC RDW Plt Count MPV Absolute Neuts (auto) Neutrophils % Lymphocytes % Monocytes % Eosinophils % Basophils % Nucleated RBC % PT with INR INR Sodium Potassium Chloride Carbon Dioxide Anion Gap BUN Creatinine Creat Clearance w eGFR POC Glucometer 359 384 396 Random Glucose Calcium Phosphorus Magnesium Total Bilirubin AST ALT Alkaline Phosphatase Total Protein Albumin Current Medications Generic Name Dose Route Start Last Admin Trade Name Freq PRN Reason Stop Dose Admin Insulin Aspart 1 vial 11/30/18 05:06 12/02/18 17:08 Novolog Vial Sliding Scale - SQ 10 units Q6HPO MYNOR Administration Protocol Insulin Detemir 20 units 11/30/18 07:00 12/02/18 06:05 Levemir Vial SQ 20 units AM MYNOR Administration Insulin Detemir 15 units 11/30/18 22:00 12/01/18 21:31 Levemir Vial SQ 15 units HS MYNOR Administration Lactulose 20 gm 11/30/18 05:06 12/02/18 17:09 Cephulac (Oral Use) PO 20 gm Q6HPO MYNOR Administration Nadolol 80 mg 11/30/18 10:00 12/02/18 11:47 Corgard - PO 80 mg DAILY MYNOR Administration Pantoprazole Sodium 20 mg 11/30/18 10:00 12/02/18 10:07 Protonix - PO 20 mg DAILY MYNOR Administration Rifaximin 550 mg 11/30/18 10:00 12/02/18 10:07 Xifaxan - PO 550 mg BID MYNOR Administration Tamsulosin HCl 0.4 mg 11/30/18 22:00 12/01/18 21:29 Flomax - PO 0.4 mg HS MYNOR Administration Home Medications Medication Instructions Recorded Insulin Lispro [Humalog] 6 - 8 unit SQ AC 09/06/14 Omeprazole 20 mg PO DAILY 11/05/18 Tamsulosin HCl [Flomax] 0.4 mg PO HS 11/05/18 Insulin (Levemir) [Levemir Vial] 15 units SQ HS #1 vial 11/08/18 Insulin (Levemir) [Levemir Vial] 20 units SQ AM #1 vial 11/08/18 Nadolol [Corgard -] 80 mg PO DAILY #60 tablet 11/08/18 Nystatin Powder [Nystop Powder -] 1 applic TP DAILY #1 applic 11/08/18 Rifaximin [Xifaxan -] 550 mg PO BID #60 tablet 11/08/18 Lactulose (Oral Use) [Cephulac -] 20 gm PO BID #1 udc 12/02/18 ASSESSMENT AND PLAN: 73 year old male with history of DM2, CHF, COPD, HTN, CAD, cirrhosis, esophageal varices brought to the ED by his son after being found unresponsive at home. 1. Acute Hepatic Encephalopathy - resolved Hx Cirrhosis with portal gastropathy and esophageal varices. Continue Nadolol. Continue Lactulose/Rifaximin. No sign of infective etiology for encephalopathy - no leukocytosis or fever. Blood/Urine Cx negative. No ascites on Abdominal US. 2. CKD 3 - Stable. 3. HTN - at goal without anti-hypertensive medications. 4. CAD - not on Aspirin due to Varices. No evidence of ACS currently. 5. BPH - continue Flomax 6. DM 2 - Continue Levemir and sliding scale. 7. Thrombocytopenia/Macrocytic Anemia - sec to Cirrhosis - no signs of bleeding - will monitor. b12/Folate levels requested. DVT Px - SCDs. GI Px - Protonix
[2018-12-02] MEDS ORDERED: INSULIN SLIDING SCALE (NOVOLOG) 1 VIAL SQ SCH (18:00)
[2018-12-02] MEDS: TAMSULOSIN HCL 0.4 MG CAP PO SCH (22:53)
[2018-12-03] MEDS: LACTULOSE 20 GM/30 ML UDC (FOR ORAL USE ONLY) PO SCH ×2 (00:45→06:19)
[2018-12-03 03:42] VITALS: PULSE 71; TEMP 98.8
[2018-12-03] MEDS: INSULIN SLIDING SCALE (NOVOLOG) 1 VIAL SQ SCH (06:19)
[2018-12-03] MEDS: INSULIN (LEVEMIR) 100 UNITS/ML UNITS SQ SCH (06:20)
[2018-12-03] MEDS: PANTOPRAZOLE 20 MG TABLET (FP) PO SCH (09:48)
[2018-12-03] MEDS: NADOLOL 40 MG TABLET (FP) PO SCH (09:48)
[2018-12-03] MEDS: RIFAXIMIN 550 MG TABLET (UD) PO SCH (09:48)
[2018-12-03 11:27] VITALS: BP 108/52
--- NOTE | 2018-12-03 15:58 | PN ---
Teaching Attending Note Name of Resident: Coleman Ferguson ATTENDING PHYSICIAN STATEMENT I saw and evaluated the patient. I reviewed the resident's note and discussed the case with the resident. I agree with the resident's findings and plan as documented. SUBJECTIVE: Feels well - no complaints. OBJECTIVE: Afebrile, Hemodynamically Stable. Last Vital Signs Temp Pulse Resp BP Pulse Ox 98.8 F 71 20 108/52 L 95 12/03/18 06:00 12/03/18 10:00 12/03/18 10:00 12/03/18 10:00 12/02/18 21:00 HEENT - Bruising below R eye. EOMI. No visual disturbance Heart - S1, S2, RRR Lungs - good air entry bilaterally Abdomen - Soft, non-tender. Bowel Sounds normal. - Steward in situ Extremities - bilateral UE bruising. Trace edema LEs, no calf tenderness. Neuro - AAO x 3. Tone/Power normal all 4 extremities. Laboratory Results - last 24 hr 12/02/18 12/02/18 12/02/18 09:22 17:02 22:54 Sodium 135 L Potassium 4.9 Chloride 110 H Carbon Dioxide 17 L Anion Gap 8 BUN 28 H Creatinine 1.6 H Creat Clearance w eGFR 42.70 POC Glucometer 396 351 Random Glucose 335 H* Calcium 8.1 L Phosphorus 2.5 Magnesium 1.9 Total Bilirubin 4.7 H AST 31 ALT 37 Alkaline Phosphatase 165 H Total Protein 5.3 L Albumin 2.6 L Vitamin B12 658 Serum Folate 8 12/03/18 06:18 Sodium Potassium Chloride Carbon Dioxide Anion Gap BUN Creatinine Creat Clearance w eGFR POC Glucometer 180 Random Glucose Calcium Phosphorus Magnesium Total Bilirubin AST ALT Alkaline Phosphatase Total Protein Albumin Vitamin B12 Serum Folate Discharge Medications Medication Instructions Recorded Insulin Lispro [Humalog] 6 - 8 unit SQ AC 09/06/14 Omeprazole 20 mg PO DAILY 11/05/18 Tamsulosin HCl [Flomax] 0.4 mg PO HS 11/05/18 Insulin (Levemir) [Levemir Vial] 15 units SQ HS #1 vial 11/08/18 Insulin (Levemir) [Levemir Vial] 20 units SQ AM #1 vial 11/08/18 Nadolol [Corgard -] 80 mg PO DAILY #60 tablet 11/08/18 Nystatin Powder [Nystop Powder -] 1 applic TP DAILY #1 applic 11/08/18 Rifaximin [Xifaxan -] 550 mg PO BID #60 tablet 11/08/18 Lactulose (Oral Use) [Cephulac -] 20 gm PO BID #1 udc 12/02/18 ASSESSMENT AND PLAN: 73 year old male with history of DM2, CHF, COPD, HTN, CAD, cirrhosis, esophageal varices brought to the ED by his son after being found unresponsive at home. 1. Acute Hepatic Encephalopathy - resolved. AAO x 3. Hx Cirrhosis with portal gastropathy and esophageal varices. Continue Nadolol. Continue Lactulose/Rifaximin. No sign of infective etiology for encephalopathy - no leukocytosis or fever. Blood/Urine Cx negative. No ascites on Abdominal US. GI follow up on discharge. 2. CKD 3 - Stable. 3. HTN - at goal without anti-hypertensive medications. 4. CAD - not on Aspirin due to Varices. No evidence of ACS currently. 5. BPH - continue Flomax 6. DM 2 - Continue Levemir and sliding scale. 7. Thrombocytopenia/Macrocytic Anemia - sec to Cirrhosis - no signs of bleeding - will monitor. B12/Folate levels normal - 658/8 GI Px - Protonix Medically Optimized for discharge to SNF.
== END 2018-12-03 11:43 | DRG 442 ==
LOC: JER 19:11 → JERBED 23:49 → J6S 11-30 05:48
PROVIDERS: ADMIT Internal Medicine
DX: K72.00 Acute and subacute hepatic failure without coma (principal); N17.9 Acute kidney failure, unspecified; K76.6 Portal hypertension; I85.00 Esophageal varices without bleeding; I85.10 Secondary esophageal varices without bleeding; K72.90 Hepatic failure, unspecified without coma; J44.9 Chronic obstructive pulmonary disease, unspecified; K70.30 Alcoholic cirrhosis of liver without ascites; E11.65 Type 2 diabetes mellitus with hyperglycemia; R41.82 Altered mental status, unspecified; E87.5 Hyperkalemia; N40.0 Benign prostatic hyperplasia without lower urinary tract symptoms; I25.10 Atherosclerotic heart disease of native coronary artery without angina pectoris; D69.6 Thrombocytopenia, unspecified; E80.6 Other disorders of bilirubin metabolism; E86.0 Dehydration; K31.89 Other diseases of stomach and duodenum; I12.9 Hypertensive chronic kidney disease with stage 1 through stage 4 chronic kidney disease, or unspecified chronic kidney disease; E11.22 Type 2 diabetes mellitus with diabetic chronic kidney disease; N18.3 Chronic kidney disease, stage 3 (moderate); Z87.891 Personal history of nicotine dependence
CPT/HCPCS: 36415; 70450-TC; 71045-TC-FY; 74176-TC; 76705-TC; 80048; 80053; 80076; 81003; 82009; 82140; 82248; 82550; 82607; 82746; 82962; 83605; 83735; 84100; 84443; 84484; 85025; 85027; 85610; 85730; 87040; 87086; 90715; 93005; 93010; 94010; 97116-GP; 99283-25; J7030

== ENCOUNTER 2019-03-27 16:30 | Inpatient (IN) | payer OTHER ==
--- NOTE | 2019-03-27 16:37 | PDOC ---
History of Present Illness - General Chief Complaint: Altered Mental Status Stated Complaint: ALT MENTAL STATUS Time Seen by Provider: 03/27/19 16:37 History Source: Family, Other (Note from GI doctor (Dr. Wynn)) - History of Present Illness Initial Comments: 03/27/19 20:12 Mr. Marie is a 74 y/o man with hx DM, cirrhosis with prior episodes of hepatic encephalopathy presenting from his GI physician's office (Dr. Wynn) after becoming acutely disoriented in the exam room. He is accompanied by his step son whom accompanied him to the GI visit. The note from his operations label clerk reports that he appeared fully alert and oriented in the waiting room, but shortly after coming in to the exam room became confused and disoriented. His operations label clerk's note comments that he has had a similar presentation in the past during episodes of hepatic encephalopathy when his ammonia level was > 100. His son reports that he lives alone at home and manages his own ADLs ( including showering, medications, cooking), but that his other brother checks in on him daily. His soon reports that his mental status has waxed and waned over the last few weeks but that at baseline he is alert and oriented. Past History - Past Medical History Allergies/Adverse Reactions: Allergies Allergy/AdvReac Type Severity Reaction Status Date / Time No Known Allergies Allergy Verified 11/04/18 23:23 Home Medications: Ambulatory Orders Insulin Lispro [Humalog] 6 - 8 unit SQ AC 09/06/14 Omeprazole 20 mg PO DAILY 11/05/18 Tamsulosin HCl [Flomax] 0.4 mg PO HS 11/05/18 Insulin (Levemir) [Levemir Vial] 15 units SQ HS #1 vial 11/08/18 Insulin (Levemir) [Levemir Vial] 20 units SQ AM #1 vial 11/08/18 Nadolol [Corgard -] 80 mg PO DAILY #60 tablet 11/08/18 Nystatin Powder [Nystop Powder -] 1 applic TP DAILY #1 applic 11/08/18 Rifaximin [Xifaxan -] 550 mg PO BID #60 tablet 11/08/18 Lactulose (Oral Use) [Cephulac -] 20 gm PO BID #1 udc 12/02/18 Anemia: Yes Asthma: No Cancer: No Cardiac Disorders: No CVA: No COPD: Yes (EMPHYSEMA) CHF: Yes Dementia: No Diabetes: Yes (NIDDM) GI Disorders: Yes (ESOPHAGEAL VARICES) Disorders: Yes (ESBL IN URINE) HTN: No Hypercholesterolemia: No Liver Disease: Yes (CIRRHOSIS) Seizures: No Thyroid Disease: No - Surgical History Abdominal Surgery: Yes (ESOPHAGEAL SX, HERNIA) Appendectomy: No Cardiac Surgery: No Cholecystectomy: No Lung Surgery: No Neurologic Surgery: No Orthopedic Surgery: No - Immunization History Immunization Up to Date: Yes - Suicide/Smoking/Psychosocial Hx Smoking Status: Yes Smoking History: Current every day smoker Have you smoked in the past 12 months: Yes Number of Cigarettes Smoked Daily: 10 If you are a former smoker, when did you quit?: smokes daily 'Breaking Loose' booklet given: 11/30/18 Hx Alcohol Use: Yes (former alcoholic) Drug/Substance Use Hx: No Substance Use Type: Alcohol Hx Substance Use Treatment: No Review of Systems - Review of Systems Able to Perform ROS?: No (AMS) *Physical Exam - Physical Exam Comments: 03/27/19 20:03 PE: GENERAL: Somnolent, disoriented. Mumbling but incoherent. Jaundiced. HEAD: No signs of trauma, normocephalic, atraumatic EYES: PERRLA, EOMI, sclera anicteric, conjunctiva clear ENT: Auricles normal inspection, hearing grossly normal, nares patent, oropharynx clear without exudates. Moist mucosa NECK: Normal ROM, supple, no lymphadenopathy, JVD, or masses LUNGS: No distress, speaks full sentences, clear to auscultation bilaterally HEART: Regular rate and rhythm, normal S1 and S2, no murmurs, rubs or gallops, peripheral pulses normal and equal bilaterally. ABDOMEN: Soft, nontender, normoactive bowel sounds. No guarding, no rebound. No masses EXTREMITIES : Normal inspection, Normal range of motion, no edema. No clubbing or cyanosis. SKIN: Warm, Dry, normal turgor, no rashes or lesions noted ED Treatment Course - LABORATORY CBC & Chemistry Diagram: 03/27/19 17:45 03/27/19 17:45 Medical Decision Making - Medical Decision Making 03/27/19 16:56 74 y/o M with hx cirrhosis, DM, daily smoking p/w AMS and incontinence to urine and stool during visit with Dr. Goldwein, sent for evaluation due to concern for hepatic encephalopathy. Plan: CBC CMP EKG CXR UA Urine culture Blood culture PT/INR PTT Ammonia Head CT non-con Dispo: Admit --- EKG - LBBB noted, unchanged from prior Lactate - 2.2 Additional fluid bolus ordered. --- CT Head negative for acute process CXR - appears unchanged from prior, pending official read --- Hg - 10.1, likely representing hemoconcentration as prior was 8.1 Troponin negative CR - 2.4 (Prior - 1.6) - indicative of SOPHIE Step son also reporting that his father has been sleeping during the day, but active at night, consistent with hepatic encephalopathy Ammonia pending --- Ammonia - 158.30 20 gm lactulose ordered --- Case discussed with admitting team, patient admitted to Dr. De La Rosa *DC/Admit/Observation/Transfer Diagnosis at time of Disposition: Hepatic encephalopathy, SOPHIE (acute kidney injury) - Discharge Dispostion Condition at time of disposition: Stable Decision to Admit order: Yes - Referrals - Patient Instructions - Post Discharge Activity
[2019-03-27] MEDS ORDERED: SODIUM CHLORIDE 0.9% 1000 ML INFUS.BAG IV ONE (17:27)
[2019-03-27 18:26] LABS: BASO % 0.6 % (0-2.0); EOS % 2.9 % (0-4.5); HEMATOCRIT 30.1 % (35.4-49); HEMOGLOBIN 10.4 GM/dL (11.7-16.9); LYMPH % 30.5 % (8-40); MCH 34.1 pg (25.7-33.7); MCHC 34.7 g/dl (32.0-35.9); MEAN CELL VOLUME 98.1 fl (80-96); MEAN PLT VOLUME 9.8 fl (7.5-11.1); MONO % 7.5 % (3.8-10.2); NEUT % 58.5 % (42.8-82.8); PLATELET COUNT 90 K/MM3 (134-434); RBC 3.06 M/mm3 (4.00-5.60); RDW 18.3 % (11.9-15.9); WHITE BLOOD COUNT 3.9 K/mm3 (4.0-10.0)
[2019-03-27 18:32] LABS: URINE APPEARANCE CLOUDY; URINE BILIRUBIN NEGATIVE (NEGATIVE); URINE COLOR DK YELLOW; URINE GLUCOSE (UA) NEGATIVE (NEGATIVE); URINE KETONE NEGATIVE (NEGATIVE); URINE LEUK ESTERASE NEGATIVE (NEGATIVE); URINE NITRITE NEGATIVE (NEGATIVE); URINE PROTEIN NEGATIVE (NEGATIVE)
[2019-03-27 18:42] LABS: ACTIVATED PTT 40.6 SECONDS (25.2-36.5)
--- NOTE | 2019-03-27 18:49 | PDOC ---
Documentation entered by Darline Valenzuela SCRIBE, acting as scribe for Sheyla Becker DO. Sheyla Becker, : This documentation has been prepared by the Nicolas oscar Brenda, SCRIBE, under my direction and personally reviewed by me in its entirety. I confirm that the documentation accurately reflects all work, treatment, procedures, and medical decision making performed by me. Attending Attestation - Resident Resident Name: Nahum Brown - ED Attending Attestation I have performed the following: I have examined & evaluated the patient, The case was reviewed & discussed with the resident, I agree w/resident's findings & plan, Exceptions are as noted - HPI HPI: 03/27/19 18:19 The patient is a 74 year old male, with a significant PMH of IDDM, cirrhosis with varices (banded) and hepatic encephalopathy, CHF, COPD, HTN, and UTI ( klebsiella), who presents to the emergency department [facility] with altered mental status. As per kain jackson, he was taking him to his liver specialist today when he noticed that he was abnormal,noting that he was confused and pale. The step-son reports that upon arriving to the appointment, the physician noticed that he was altered mentally and pale, prompting him to call EMS and come to the ED. The step-son also reports that the patient had a bowel movement this morning, which he noted to be brown in color. Patient was a bad historin due to conditions. Allergies: NKA Past surgical history: variceal banding. Social history: Pt smokes 1/2 ppd. Prior alcohol use for many years. Son denies history of drug use. PCP: Not on staff Liver specialist: Dr. Gordon - Physicial Exam PE: 03/27/19 18:19 GENERAL: (+) Mentally altered. Awake, and in no acute distress HEAD: No signs of trauma EYES: PERRLA, EOMI, sclera anicteric, conjunctiva clear ENT: (+) Dry mucous membranes. Auricles normal inspection, hearing grossly normal, nares patent. NECK: Normal ROM, supple, no lymphadenopathy, JVD, or masses LUNGS: (+) Crackles. Breath sounds equal. No wheezes. HEART: (+) tachycardic. Normal S1 and S2, no murmurs, rubs or gallops ABDOMEN: Soft, nontender, normoactive bowel sounds. No guarding, no rebound. No masses EXTREMITIES: Normal range of motion, no edema. No clubbing or cyanosis. No cords or tenderness NEUROLOGICAL: Cranial nerves II through XII grossly intact. SKIN: Warm, Dry, normal turgor. - Medical Decision Making 03/27/19 18:40 I, Dr. Sheyla Becker, DO, attest that this document has been prepared under my direction and personally reviewed by me in its entirety. I further attest, that it accurately reflects all work, treatment, procedures and medical decision -making performed by me. 03/27/19 18:43 a/p: 74yo male with hx of cirrhosis and hx of hepatic encephalopathy sent from his Liver specialist for eval of lethargy, altered ms, and difficulty ambulating -presents with step son who helps to care for his step father -ams started today around 2p -spell of urine on the patient -per step-son had a brown bowel movement today -pt lethargic, dehydrated, pale -pt admits to sleep-wake disturbance concerning for hepatic encephalopathy -will send labs, ekg, cxr, lactate, vbg, ammonia -will need admission -will start ivf hydration 03/27/19 19:19 pt with dehydration veena hepatic encephalopathy will start lactulose will need admission 03/27/19 19:20 pt with small amount of fluid in the mastoid air cells on head ct, but no other acute findings elevated hgb - concerning for hemoconcentration compared to prior cbc findings, will continue to hydrate dehydrated on exam and labs 03/27/19 19:20 microblog sent for admission 03/27/19 19:54 resident discussed the case with rosita who accepts pt to service Heart Score/ECG Review - ECG Intrepretation Comment:: 03/27/19 18:40 sinus at 65, LBBB, no acute st/t wave findings
[2019-03-27 18:51] LABS: ALBUMIN 3.3 g/dl (3.4-5.0); BILIRUBIN,TOTAL 5.4 mg/dL (0.2-1); BLOOD UREA NITROGEN 61.6 mg/dL (7-18); CALCIUM 8.9 mg/dL (8.5-10.1); CREATININE 2.4 mg/dL (0.55-1.3); POTASSIUM 4.6 mmol/L (3.5-5.1); TOT PROT 6.5 g/dl (6.4-8.2)
[2019-03-27] MEDS ORDERED: LACTULOSE 20 GM/30 ML UDC (FOR ORAL USE ONLY) PO ONE (19:17)
[2019-03-27] MEDS ORDERED: LACTULOSE 20 GM/30 ML UDC (FOR ORAL USE ONLY) ONE (19:21)
[2019-03-27] MEDS ORDERED: SODIUM CHLORIDE 1,000 ML IV STA (19:21)
--- NOTE | 2019-03-27 20:17 | PN ---
Teaching Attending Note Name of Resident: Jerry Gonzalez ATTENDING PHYSICIAN STATEMENT I saw and evaluated the patient. I reviewed the resident's note and discussed the case with the resident. I agree with the resident's findings and plan as documented. SUBJECTIVE: Patient is a 74 year old man with a significant PMH of Insulin-treated DM, Tobacco use, Remote alcohol abuse?, Cirrhosis with varices (banded), Hepatic encephalopathy, CHF, COPD, HTN and UTI (klebsiella), who presents to the ER with altered mental status. As per his step-son, he was taking him to his liver specialist today when he noticed that he was abnormal - he was confused and pale. The step-son reports that upon arriving to the appointment, the physician noticed that he was altered mentally and pale, prompting him to call EMS and send him to the ER. The step-son also reports that the patient had a bowel movement this morning, which he noted to be brown in color. Patient was unable to provide any information due to his AMS. OBJECTIVE: Somnolent Vital Signs Period Temp Pulse Resp BP Sys/Block Pulse Ox Last 24 Hr 97.6 F 64-68 18 98-121/42-56 96-98 HEENT: Scleral Jaundice, eye redness or discharge, PERRLA, EOMI. Normocephalic, atraumatic. External ears are normal and hearing is grossly intact. No nasal discharge. Neck: Supple, nontender. No palpable adenopathy or thyromegaly. No JVD Chest: Good effort. Clear to auscultation and percussion. Heart: Regular. No S3, rub or murmur Abdomen: Distended, soft, nontender and no HSM. No rebound or guarding. Normal bowel sounds. Ext: Peripheral pulses intact. No leg edema. Skin: Warm and dry. No petechiae, rash or ecchymosis. +Jaundice Neuro: Somnolent but readily arousable. Oriented to person and place. No asterexis or tremors. CN 2-12 grossly intact. Sensation grossly intact in all four extremities and DTR are symmetric. Psych: Appropriate mood and affect. Good insight. Current Medications Generic Name Dose Route Start Last Admin Trade Name Freq PRN Reason Stop Dose Admin Sodium Chloride 1,000 mls @ 1,000 mls/hr 03/27/19 19:21 03/27/19 19:36 Normal Saline - IV 03/27/19 20:20 1,000 mls/hr ASDIR STA Administration Home Medications Medication Instructions Recorded Insulin Lispro [Humalog] 6 - 8 unit SQ AC 09/06/14 Omeprazole 20 mg PO DAILY 11/05/18 Tamsulosin HCl [Flomax] 0.4 mg PO HS 11/05/18 Insulin (Levemir) [Levemir Vial] 15 units SQ HS #1 vial 11/08/18 Insulin (Levemir) [Levemir Vial] 20 units SQ AM #1 vial 11/08/18 Nadolol [Corgard -] 80 mg PO DAILY #60 tablet 11/08/18 Nystatin Powder [Nystop Powder -] 1 applic TP DAILY #1 applic 11/08/18 Rifaximin [Xifaxan -] 550 mg PO BID #60 tablet 11/08/18 Lactulose (Oral Use) [Cephulac -] 20 gm PO BID #1 udc 12/02/18 Abnormal Lab Results 03/27/19 03/27/19 03/27/19 17:45 17:45 17:45 WBC 3.9 L RBC 3.06 L Hgb 10.4 L Hct 30.1 L D MCV 98.1 H MCH 34.1 H RDW 18.3 H Plt Count 90 L D PTT (Actin FS) 40.6 H BUN 61.6 H Creatinine 2.4 H Random Glucose 287 H Lactic Acid Total Bilirubin 5.4 H Alkaline Phosphatase 217 H Ammonia Albumin 3.3 L 03/27/19 03/27/19 17:48 17:48 WBC RBC Hgb Hct MCV MCH RDW Plt Count PTT (Actin FS) BUN Creatinine Random Glucose Lactic Acid 2.2 H* Total Bilirubin Alkaline Phosphatase Ammonia 158.30 H Albumin ASSESSMENT AND PLAN: 1. Hepatic encephalopathy - No obvious precipitating factor - no obvious infection. No acute pathology on head CT and CXR. EKG shows NSR with LBBB. Will treat with lactulose 30 ml PO Qid and rifaximin 55 mg po q 12 hrs. Trend LFTs, lactic acidosis (?type B) and CBC. Pancytopenia likely sequelae of chronic liver disease. Avoid electrolyte derangement. 2. Hypoalbuminemia - Possibly due to combined effects of malnutrition and inflammation associated with comorbid chronic conditions. Will ensure adequate dietary protein intake and also consult ammunition storekeeper. 3. Uncontrolled DM For now, we will hold the home diabetes drugs and implement sliding scale insulin regimen. Provide comprehensive diabetes care with patient teaching and counseling about the importance of adherence to prescribed diabetes regimen, euglycemia, eye care and foot care. 4. Tobacco Use Counseled on risks associated with tobacco use. We will provide patient all the necessary assistance to facilitate smoking cessation and prescribe Nicotine patch. 5. CKD with SOPHIE - May have a component of hepatorenal syndrome. Will hydrate gently, monitor urine output and get kidney sonogram. Consult nephrology and avoid nephrotoxic agents such as NSAIDS, aminoglycosides, contrast dyes and certain Alternative medicine products. 6. Anemia - Likely multifactorial. Will do basic anemia work up including serial stool guaiacs, reticulocyte count and iron studies. 7. Obesity Counseled on the risks associated with obesity. Will provide patient all the necessary assistance, counseling and positive reinforcement to facilitate weight loss. Consult ammunition storekeeper. 8. Remote Alcohol abuse - Implement [facility] alcohol withdrawal protocol and do neurochecks. Implement seizure, fall and aspiration precautions. Treat with thiamine and folic acid and monitor electrolytes (Ca,Mg,K,P). Counseled patient about abstaining from alcohol. Will consult welfare specialist and refer to alcohol detox upon discharge. 9. Hypertension - Hold outpatient antihypertensive drugs for now and restart when clinically appropriate. Revise regimen to ensure [id number] excellent BP control and career development counselor patient on the injurious effects of uncontrolled hypertension. Nonpharmacologic measures to control hypertension like weight loss , salt restriction and exercise discussed. Importance of adherence to treatment regimen and attainment of normotension emphasized. 10. DVT prophylaxis - Heparin 5000u sq tid. Monitor platelets daily. 11. Advance directives - Full code
[2019-03-27 20:43] LABS: INR 1.26 (0.83-1.09); PROTHROMBIN TIME (PATIENT) 14.9 SEC (9.7-13.0)
[2019-03-27] MEDS ORDERED: LACTULOSE 20 GM/30 ML UDC (FOR ORAL USE ONLY) PO PRN (20:48)
[2019-03-27] MEDS: SODIUM CHLORIDE 1,000 ML IV SCH (21:11)
[2019-03-27] MEDS ORDERED: INSULIN (LEVEMIR) 100 UNITS/ML UNITS SQ ONE (21:50)
[2019-03-27] MEDS ORDERED: TAMSULOSIN HCL 0.4 MG CAP ONE (21:51)
[2019-03-27] MEDS: TAMSULOSIN HCL 0.4 MG CAP PO SCH (22:02)
--- NOTE | 2019-03-27 22:06 | HP ---
CHIEF COMPLAINT: altered mental status PCP: Dr. Matson HISTORY OF PRESENT ILLNESS: José Manuel Marie is a 74 year old male with a past medical history of liver cirrhosis, esophageal varices, DM, CHF, COPD, HTN who presented from his still tender's office (Dr. Wynn) with altered mental status and pale complexion. The physician recommended the patient go to the ED for further evaluation. Step-son noted that the patient had a bowel movement this morning that was soft and brown. Son and step-son at the bedside noted that the patient had been non compliant with his diet and continues to smoke cigarettes. Additionally, son noted that the patient had been having on and off symptoms of altered mental status over last several weeks. Patient had a recent admission to this hospital for hepatic encephalopathy with an elevated ammonia level. Patient was asking for water and food at the bedside. Denied any acute chest pain, shortness of breath, abdominal pain, nausea, vomiting, headaches, visual changes, fever, chills. ER course was notable for: (1) lactulose and NS given (2) ammonia 158, total bilirubin 5.4, lactic acid 2.2, BUN 61.6, CRE 2.4 (3) Head CT with no acute intracranial pathology, CXR with possible congestion in the bilateral lower lobes PAST MEDICAL HISTORY: as above PAST SURGICAL HISTORY: hernia repair variceal banding Social History: Smokin/2 PPD Alcohol: former alcohol abuse Drugs: denies Family History: unknown Allergies No Known Allergies Allergy (Verified 11/04/18 23:23) HOME MEDICATIONS: Home Medications Medication Instructions Recorded Insulin Lispro [Humalog] 6 - 8 unit SQ AC 09/06/14 Omeprazole 20 mg PO DAILY 11/05/18 Tamsulosin HCl [Flomax] 0.4 mg PO HS 11/05/18 Insulin (Levemir) [Levemir Vial] 15 units SQ HS #1 vial 11/08/18 Insulin (Levemir) [Levemir Vial] 20 units SQ AM #1 vial 11/08/18 Nadolol [Corgard -] 80 mg PO DAILY #60 tablet 11/08/18 Nystatin Powder [Nystop Powder -] 1 applic TP DAILY #1 applic 11/08/18 Rifaximin [Xifaxan -] 550 mg PO BID #60 tablet 11/08/18 Lactulose (Oral Use) [Cephulac -] 20 gm PO BID #1 [facility] [place]18 REVIEW OF SYSTEMS CONSTITUTIONAL: Absent: fever, chills, diaphoresis, generalized weakness, loss of appetite, weight change HEENT: Absent: rhinorrhea, nasal congestion, throat pain, throat swelling, difficulty swallowing, CARDIOVASCULAR: Absent: chest pain, syncope, palpitations, irregular heart rate, lightheadedness , peripheral edema RESPIRATORY: Absent: cough, shortness of breath, dyspnea with exertion, orthopnea, wheezing, stridor, hemoptysis GASTROINTESTINAL: Absent: abdominal pain, abdominal distension, nausea, vomiting, diarrhea, constipation, GENITOURINARY: Absent: dysuria, frequency, urgency, hesitancy, hematuria, flank pain, MUSCULOSKELETAL: Absent: myalgia, arthralgia, joint swelling, back pain, neck pain SKIN: Absent: rash, itching, pallor HEMATOLOGIC/IMMUNOLOGIC: Absent: easy bleeding, easy bruising, lymphadenopathy, frequent infections ENDOCRINE: Absent: unexplained weight gain, unexplained weight loss, heat intolerance, cold intolerance NEUROLOGIC: mental status changes Absent: headache, focal weakness or paresthesias, dizziness, unsteady gait, seizure, bladder or bowel incontinence PSYCHIATRIC: Absent: anxiety, depression, suicidal or homicidal ideation, hallucinations. PHYSICAL EXAMINATION Vital Signs - 24 hr 03/27/19 03/27/19 16:30 18:57 Temperature 97.6 F Pulse Rate 68 Pulse Rate [ 64 Right Radial] Respiratory 18 Rate Blood Pressure 98/42 L Blood Pressure 121/56 L [Left Arm] O2 Sat by Pulse 96 98 Oximetry (%) GENERAL: Awake, alert, and oriented to person and place, in no acute distress. HEAD: Normal with no signs of trauma. EYES: Pupils equal, round and reactive to light, extraocular movements intact, icteric sclera EARS, NOSE, THROAT: Oropharynx clear without exudates. Dry mucous membranes. NECK: Normal range of motion, supple without lymphadenopathy. Noted JVD with hepatojugular reflex. LUNGS: Breath sounds equal, clear to auscultation bilaterally, decreased breath sounds at the bases. No wheezes, and no crackles. No accessory muscle use. HEART: Regular rate and rhythm, normal S1 and S2 without murmur, rub. ABDOMEN: Soft, nontender, distended abdomen with minor fluids wave noted, normoactive bowel sounds, no guarding, no rebound, no masses. Hepatomegaly noted MUSCULOSKELETAL: Normal range of motion at all joints. No bony deformities or tenderness. UPPER EXTREMITIES: 2+ pulses, warm, well-perfused. No cyanosis. No clubbing. No peripheral edema. LOWER EXTREMITIES: 1+ pulses, warm, well-perfused. No calf tenderness. Trace peripheral edema. NEUROLOGICAL: Cranial nerves II-XII intact. Muscle strength intact bilaterally upper and lower extremities. PSYCHIATRIC: Mildly inappropriate behavior, interjections, and need to reorient. SKIN: Warm, dry, jaundice noted. Laboratory Results - last 24 hr 03/27/19 03/27/19 03/27/19 17:45 17:45 17:45 WBC 3.9 L RBC 3.06 L Hgb 10.4 L Hct 30.1 L D MCV 98.1 H MCH 34.1 H MCHC 34.7 RDW 18.3 H Plt Count 90 L D MPV 9.8 D Absolute Neuts (auto) 2.3 Neutrophils % 58.5 Lymphocytes % 30.5 D Monocytes % 7.5 Eosinophils % 2.9 Basophils % 0.6 Nucleated RBC % 0 PT with INR INR PTT (Actin FS) Sodium 137 Potassium 4.6 Chloride 105 Carbon Dioxide 22 Anion Gap 10 BUN 61.6 H Creatinine 2.4 H Est GFR (CKD-EPI)AfAm 29.89 Est GFR (CKD-EPI)NonAf 25.79 POC Glucometer Random Glucose 287 H Lactic Acid Calcium 8.9 Total Bilirubin 5.4 H AST 36 ALT 38 Alkaline Phosphatase 217 H Ammonia Creatine Kinase Troponin I Total Protein 6.5 Albumin 3.3 L Urine Color Dk yellow Urine Appearance Cloudy Urine pH 5.0 Ur Specific [place] 1.015 Urine Protein Negative Urine Glucose (UA) Negative Urine Ketones Negative Urine Blood Negative Urine Nitrite Negative Urine Bilirubin Negative Urine Urobilinogen 1.0 Ur Leukocyte Esterase Negative 03/27/19 03/27/19 03/27/19 17:45 17:45 17:48 WBC RBC Hgb Hct MCV MCH MCHC RDW Plt Count MPV Absolute Neuts (auto) Neutrophils % Lymphocytes % Monocytes % Eosinophils % Basophils % Nucleated RBC % PT with INR 14.90 H INR 1.26 H PTT (Actin FS) 40.6 H Sodium Potassium Chloride Carbon Dioxide Anion Gap BUN Creatinine Est GFR (CKD-EPI)AfAm Est GFR (CKD-EPI)NonAf POC Glucometer Random Glucose Lactic Acid 2.2 H* Calcium Total Bilirubin AST ALT Alkaline Phosphatase Ammonia Creatine Kinase 52 Troponin I < 0.02 Total Protein Albumin Urine Color Urine Appearance Urine pH Ur Specific [place] Urine Protein Urine Glucose (UA) Urine Ketones Urine Blood Urine Nitrite Urine Bilirubin Urine Urobilinogen Ur Leukocyte Esterase 03/27/19 03/27/19 03/27/19 17:48 17:53 21:44 WBC RBC Hgb Hct MCV MCH MCHC RDW Plt Count MPV Absolute Neuts (auto) Neutrophils % Lymphocytes % Monocytes % Eosinophils % Basophils % Nucleated RBC % PT with INR INR PTT (Actin FS) Sodium Potassium Chloride Carbon Dioxide Anion Gap BUN Creatinine Est GFR (CKD-EPI)AfAm Est GFR (CKD-EPI)NonAf POC Glucometer 261 257 Random Glucose Lactic Acid Calcium Total Bilirubin AST ALT Alkaline Phosphatase Ammonia 158.30 H Creatine Kinase Troponin I Total Protein Albumin Urine Color Urine Appearance Urine pH Ur Specific [place] Urine Protein Urine Glucose (UA) Urine Ketones Urine Blood Urine Nitrite Urine Bilirubin Urine Urobilinogen Ur Leukocyte Esterase EKG--> NSR, LBBB unchanged from previous EKG, QTc 470 ASSESSMENT/PLAN: José Manuel Marie is a 74 year old male with a past medical history of liver cirrhosis, esophageal varices, DM, CHF, COPD, HTN admitted for treatment of altered mental status secondary to hepatic encephalopathy. Hepatic Encephalopathy DM HTN SOPHIE on CKD Hypoalbuminemia Hx of Alcohol Abuse Elevated Alk Phosphatase Anemia Tobacco Abuse Hepatic Encephalopathy - Hepatic Encephalopathy Grade 1 on exam - MELD-Na Score 25, 14-15% estimated 90-day mortality - lactulose 30mL q6h, titrate for 3-5 bowel movements per day - rifaximin 550mg bid - direct bilirubin level - continue to monitor INR - GI, Dr. Goldman, consulted - daily weights - gentle hydration of NS at 42cc/hr - patient with repeated readmission for hepatic encephalopathy with elevated ammonia levels, needs closer monitoring of medication compliance and diet compliance as well as reevaluation of medication regimen as per GI DM - Levemir 20 units AM - Levemir 15 units HS - ISS - BGM ACHS HTN - hold home antihypertensive in setting of lactulose administration which may cause volume depletion - can restart if patient becomes hypertensive SOPHIE on CKD - CRE 2.4 - baseline 1.4-1.7 - gentle hydration - encourage PO intake - continue to monitor Hypoalbuniemia - Alb 3.3 - likely in setting of cirrhosis - continue to monitor - dietary consult Hx of alcohol abuse - thiamine - folic acid Elevated Alk Phosphatase - hx of cholelithiasis - RUQ U/S ordered Anemia - likely in setting of CKD and cirrhosis - iron studies - reticulocyte count Tobacco Abuse - encourage abstinence in setting of multiple medical comorbidities FEN - NS at 42cc/hr - continue to monitor electrolytes and replete as necessary, monitor sodium in setting of cirrhosis - diabetic/sodium controlled diet Prophylaxis - heparin 5000 units subq tid - monitor INR in setting of cirrhosis Code - full code WIN MILAN DO - PGY-1 Visit type - Emergency Visit Emergency Visit: Yes ED Registration Date: 03/27/19 Care time: The patient presented to the Emergency Department on the above date and was hospitalized for further evaluation of their emergent condition. - New Patient This patient is new to me today: Yes Date on this admission: 03/28/19 - Critical Care Critical Care patient: No
[2019-03-27] MEDS: INSULIN (LEVEMIR) 100 UNITS/ML UNITS SQ SCH (22:09)
[2019-03-27] MEDS: INSULIN SLIDING SCALE (NOVOLOG) 1 VIAL SQ SCH (22:10)
[2019-03-27] MEDS: RIFAXIMIN 550 MG TABLET (UD) PO SCH (22:49)
[2019-03-28] MEDS: HEPARIN NA (PORCINE) 5,000 UNITS/ML 1ML VIAL SQ SCH ×3 (06:09→21:09)
[2019-03-28] MEDS: INSULIN (LEVEMIR) 100 UNITS/ML UNITS SQ SCH ×2 (06:12→21:14)
[2019-03-28] MEDS: INSULIN SLIDING SCALE (NOVOLOG) 1 VIAL SQ SCH ×4 (06:14→21:14)
[2019-03-28 08:25] LABS: HEMATOCRIT 25.6 % (35.4-49); HEMOGLOBIN 9.2 GM/dL (11.7-16.9); MCH 34.7 pg (25.7-33.7); MEAN CELL VOLUME 96.6 fl (80-96); MEAN PLT VOLUME 9.1 fl (7.5-11.1); PLATELET COUNT 80 K/MM3 (134-434); RBC 2.65 M/mm3 (4.00-5.60); RDW 17.9 % (11.9-15.9); WHITE BLOOD COUNT 3.4 K/mm3 (4.0-10.0)
[2019-03-28 08:59] LABS: CREATININE 2.2 mg/dL (0.55-1.3); MAGNESIUM 2.6 mg/dL (1.8-2.4); PHOSPHOROUS 4.3 mg/dL (2.5-4.9)
[2019-03-28 09:11] LABS: INR 1.26 (0.83-1.09); PROTHROMBIN TIME (PATIENT) 14.9 SEC (9.7-13.0)
[2019-03-28] MEDS ORDERED: NADOLOL 40 MG TABLET (FP) PO SCH (10:00)
[2019-03-28] MEDS ORDERED: PT OWN MED DRAWER 7, Y5N ONE (10:28)
[2019-03-28] MEDS: LACTULOSE 20 GM/30 ML UDC (FOR ORAL USE ONLY) PO SCH ×3 (10:36→21:15)
[2019-03-28] MEDS: RIFAXIMIN 550 MG TABLET (UD) PO SCH ×2 (10:37→21:09)
[2019-03-28] MEDS: FOLIC ACID 1 MG TABLET (FP) PO SCH (10:37)
--- NOTE | 2019-03-28 11:46 | EKG ---
Test Reason : Blood Pressure : / mmHG Vent. Rate : 065 BPM Atrial Rate : 065 BPM P-R Int : 196 ms QRS Dur : 152 ms QT Int : 452 ms P-R-T Axes : 053 058 093 degrees QTc Int : 470 ms NORMAL SINUS RHYTHM WITH SINUS ARRHYTHMIA LEFT BUNDLE BRANCH BLOCK ABNORMAL ECG WHEN COMPARED WITH ECG OF 29-NOV-2018 22:33, NO SIGNIFICANT CHANGE WAS FOUND Confirmed by MATTHIAS RUIZ MD ([id number]) on 03/28/2019 11:46:46 AM Referred By: Confirmed By:MATTHIAS RUIZ MD
--- NOTE | 2019-03-28 12:37 | CON.GI ---
Consult Consult Specialty:: GI Referred by:: Hosppitalist Service Reason for Consultation:: Confusion - History of Present Illness Chief Complaint: Patient states that he fell. Chart states that he was sent by his aircraft skin burnisher secondary to confusion History of Present Illness: 73M admitted for evaluation of confusion. Noted confused by family and per admit note was sent by his aircraft skin burnisher Dr. Newton Wynn due to confusion and pallor. Noted to on admission. Blood glucose 287 on admission. Ammonia was 158. He states being followed by aircraft skin burnisher Dr. Newton Wynn for his liver disease. He has followed with him for multiple years as noted in consult from 2013. There was no current diarrhea, melena. He denies abdominal pain but describes lower back pain. He states that he fell prior to being admitted and hurt then right side of his ribs. Unclear if this is accurate as this was not noted in H&P. No fever noted and he denies chills. He has alcoholic cirrhosis and states that he now only drinks "on special occasions ". Per the H&P there is a medication compliance issue. He has had an abd US performed. Per the patient , his abdomen has "always looked that way". - History Source History Provided By: Patient, Medical Record Limitations to Obtaining History: Poor Historian - Past Medical History Cardio/Vascular: Yes: CHF, HTN. No: AFIB, CAD Pulmonary: Yes: COPD Gastrointestinal: Yes: Esophageal Varices, Other (Hepatic encephalopathy) Hepatobiliary: Yes: Cirrhosis (Alcohol induced) Renal/: Yes: BPH Infectious Disease: Yes: Other (pneumonia) Endocrine: Yes: Diabetes Mellitus - Past Surgical History Past Surgical History: Yes: Hernia Repair, Upper Endoscopy - Alcohol/Substance Use Hx Alcohol Use: Yes (former alcoholic) History of Substance Use: reports: None, Cocaine (ex intranasal cocaine use) - Smoking History Smoking history: Current every day smoker Have you smoked in the past 12 months: Yes Aproximately how many cigarettes per day: 10 If you are a former smoker, when did you quit?: smokes daily - Social History Usual Living Arrangement: Alone ADL: Independent Occupation: son lives upstairs Place of : [facility] History of Recent Travel: No Home Medications - Allergies Allergies/Adverse Reactions: Allergies Allergy/AdvReac Type Severity Reaction Status Date / Time No Known Allergies Allergy Verified 11/04/18 23:23 - Home Medications Home Medications: Ambulatory Orders Insulin Lispro [Humalog] 6 - 8 unit SQ AC 09/06/14 Omeprazole 20 mg PO DAILY 11/05/18 Tamsulosin HCl [Flomax] 0.4 mg PO HS 11/05/18 Insulin (Levemir) [Levemir Vial] 15 units SQ HS #1 vial 11/08/18 Insulin (Levemir) [Levemir Vial] 20 units SQ AM #1 vial 11/08/18 Nadolol [Corgard -] 80 mg PO DAILY #60 tablet 11/08/18 Nystatin Powder [Nystop Powder -] 1 applic TP DAILY #1 applic 11/08/18 Rifaximin [Xifaxan -] 550 mg PO BID #60 tablet 11/08/18 Lactulose (Oral Use) [Cephulac -] 20 gm PO BID #1 udc 12/02/18 Carvedilol 12.5 mg PO BID 03/28/19 Nadolol 40 mg PO TID 03/28/19 Ramipril 5 mg PO DAILY 03/28/19 Spironolactone 25 mg PO DAILY 03/28/19 Family Disease History - Family Disease History Other Family History: No family history of colorectal cancer Review of Systems - Review of Systems Constitutional: denies: Chills, Fever Cardiovascular: denies: Chest Pain Respiratory: denies: Cough, SOB Gastrointestinal: denies: Abdominal Pain, Melena, Rectal Bleeding, Vomiting Blood Musculoskeletal: reports: Back Pain Physical Exam-GI Vital Signs: Vital Signs Temperature 98.0 F 03/28/19 06:43 Pulse Rate 65 03/28/19 06:43 Respiratory Rate 20 03/28/19 09:00 Blood Pressure 127/63 03/28/19 06:43 O2 Sat by Pulse Oximetry (%) 100 03/28/19 09:00 Constitutional: Yes: Calm Eyes: No: Sclera Icterus Cardiovascular: Yes: Regular Rate and Rhythm. No: Murmur Respiratory: Yes: Diminished (at bases bilaterally but with poor insp effort) Gastrointestinal Inspection: No: Distention, Scars ...Auscultate: Yes: Normoactive Bowel Sounds ...Palpate: Yes: Soft. No: Tenderness ...Percussion: No: Fluid Wave, Tympanitic Edema: No (No LE edema) Neurological: Yes: Alert, Oriented (x 3), Asterixis Labs: CBC, BMP 03/28/19 07:37 03/28/19 07:37 INR, PTT INR 1.26 (0.83-1.09) H 03/28/19 07:37 Hepatic Panel Total Bilirubin 6.0 mg/dL (0.2-1) H 03/28/19 07:37 Direct Bilirubin 0.7 mg/dL (0.0-0.2) H 03/28/19 07:37 AST 34 U/L (15-37) 03/28/19 07:37 ALT 35 U/L (13-61) 03/28/19 07:37 Alkaline Phosphatase 189 U/L (45-117) H 03/28/19 07:37 Albumin 3.0 g/dl (3.4-5.0) L 03/28/19 07:37 Problem List - Problems (1) Hepatic encephalopathy Assessment/Plan: Suspect hyperglycemia leading to dehydration playing a role in triggering of hepatic encephalopathy as well as questionable medical compliance. No signs of infection, no ascites on US and chronic anemia without significant bleeding history. Alert and oriented on exam. Sounds improved when compared to admission. Asterixis still present. Advise: - Lactulose 30g q8 hours hrs. Titrate for 4-5 loose BM's per day. - Rifaximin 550mg PO BID - Continue beta bloker given h/o esophageal varices with bleed - Gentle IV hydration. - Obtain for information from his primary aircraft skin burnisher and arrange follow- up prior to discharge. Will need to clarify the dosages of his current medications including Nadolol. Nadolol is usually dosed daily given long 1/2 life. Would continue it at daily dosing. - Monitor mental status / Daily ammonia level - Aspiration precautions - Glycemic control Code(s): K72.90 - HEPATIC FAILURE, UNSPECIFIED WITHOUT COMA
--- NOTE | 2019-03-28 13:30 | PN ---
Teaching Attending Note Name of Resident: Yayo Crow ATTENDING PHYSICIAN STATEMENT I saw and evaluated the patient. I reviewed the resident's note and discussed the case with the resident. I agree with the resident's findings and plan as documented. SUBJECTIVE: Feeling better. Denies abdominal pain/nausea/vomiting. No fever/ chills. OBJECTIVE: Afebrile, Hemodynamically Stable. Last Vital Signs Temp Pulse Resp BP Pulse Ox 98.0 F 65 20 127/63 100 03/28/19 06:43 03/28/19 06:43 03/28/19 09:00 03/28/19 06:43 03/28/19 09:00 HEENT - Atramatic, Normocephalic. Heart - S1, S2, RRR Lungs - clear to auscultation Abdomen - Soft, non-tender. Bowel Sounds normal. Extremities - no edema, no calf tenderness. Neuro - AAO x 3. Tone/Power normal. [facility] + Laboratory Results - last 24 hr 03/27/19 03/27/19 03/27/19 17:45 17:45 17:45 WBC 3.9 L RBC 3.06 L Hgb 10.4 L Hct 30.1 L D MCV 98.1 H MCH 34.1 H MCHC 34.7 RDW 18.3 H Plt Count 90 L D MPV 9.8 D Absolute Neuts (auto) 2.3 Neutrophils % 58.5 Lymphocytes % 30.5 D Monocytes % 7.5 Eosinophils % 2.9 Basophils % 0.6 Nucleated RBC % 0 Retic Count PT with INR INR PTT (Actin FS) Sodium 137 Potassium 4.6 Chloride 105 Carbon Dioxide 22 Anion Gap 10 BUN 61.6 H Creatinine 2.4 H Est GFR (CKD-EPI)AfAm 29.89 Est GFR (CKD-EPI)NonAf 25.79 POC Glucometer Random Glucose 287 H Lactic Acid Calcium 8.9 Phosphorus Magnesium Iron TIBC Iron Saturation Unsaturated IBC Ferritin Total Bilirubin 5.4 H Direct Bilirubin AST 36 ALT 38 Alkaline Phosphatase 217 H Ammonia Creatine Kinase Troponin I Total Protein 6.5 Albumin 3.3 L Urine Color Dk yellow Urine Appearance Cloudy Urine pH 5.0 Ur Specific [place] 1.015 Urine Protein Negative Urine Glucose (UA) Negative Urine Ketones Negative Urine Blood Negative Urine Nitrite Negative Urine Bilirubin Negative Urine Urobilinogen 1.0 Ur Leukocyte Esterase Negative 0803/27/19 03/27/19 17:45 17:45 17:48 WBC RBC Hgb Hct MCV MCH MCHC RDW Plt Count MPV Absolute Neuts (auto) Neutrophils % Lymphocytes % Monocytes % Eosinophils % Basophils % Nucleated RBC % Retic Count PT with INR 14.90 H INR 1.26 H PTT (Actin FS) 40.6 H Sodium Potassium Chloride Carbon Dioxide Anion Gap BUN Creatinine Est GFR (CKD-EPI)AfAm Est GFR (CKD-EPI)NonAf POC Glucometer Random Glucose Lactic Acid 2.2 H* Calcium Phosphorus Magnesium Iron TIBC Iron Saturation Unsaturated IBC Ferritin Total Bilirubin Direct Bilirubin AST ALT Alkaline Phosphatase Ammonia Creatine Kinase 52 Troponin I < 0.02 Total Protein Albumin Urine Color Urine Appearance Urine pH Ur Specific [place] Urine Protein Urine Glucose (UA) Urine Ketones Urine Blood Urine Nitrite Urine Bilirubin Urine Urobilinogen Ur Leukocyte Esterase 03/27/19 03/27/19 03/27/19 17:48 17:53 21:44 WBC RBC Hgb Hct MCV MCH MCHC RDW Plt Count MPV Absolute Neuts (auto) Neutrophils % Lymphocytes % Monocytes % Eosinophils % Basophils % Nucleated RBC % Retic Count PT with INR INR PTT (Actin FS) Sodium Potassium Chloride Carbon Dioxide Anion Gap BUN Creatinine Est GFR (CKD-EPI)AfAm Est GFR (CKD-EPI)NonAf POC Glucometer 261 257 Random Glucose Lactic Acid Calcium Phosphorus Magnesium Iron TIBC Iron Saturation Unsaturated IBC Ferritin Total Bilirubin Direct Bilirubin AST ALT Alkaline Phosphatase Ammonia 158.30 H Creatine Kinase Troponin I Total Protein Albumin Urine Color Urine Appearance Urine pH Ur Specific [place] Urine Protein Urine Glucose (UA) Urine Ketones Urine Blood Urine Nitrite Urine Bilirubin Urine Urobilinogen Ur Leukocyte Esterase 03/27/19 03/28/19 03/28/19 22:58 06:11 07:33 WBC RBC Hgb Hct MCV MCH MCHC RDW Plt Count MPV Absolute Neuts (auto) Neutrophils % Lymphocytes % Monocytes % Eosinophils % Basophils % Nucleated RBC % Retic Count PT with INR INR PTT (Actin FS) Sodium Potassium Chloride Carbon Dioxide Anion Gap BUN Creatinine Est GFR (CKD-EPI)AfAm Est GFR (CKD-EPI)NonAf POC Glucometer 235 118 Random Glucose Lactic Acid 1.8 Calcium Phosphorus Magnesium Iron TIBC Iron Saturation Unsaturated IBC Ferritin Total Bilirubin Direct Bilirubin AST ALT Alkaline Phosphatase Ammonia Creatine Kinase Troponin I Total Protein Albumin Urine Color Urine Appearance Urine pH Ur Specific [place] Urine Protein Urine Glucose (UA) Urine Ketones Urine Blood Urine Nitrite Urine Bilirubin Urine Urobilinogen Ur Leukocyte Esterase 03/28/19 03/28/19 03/28/19 07:37 07:37 07:37 WBC 3.4 L RBC 2.65 L Hgb 9.2 L Hct 25.6 L MCV 96.6 H MCH 34.7 H MCHC 36.0 H RDW 17.9 H Plt Count 80 L MPV 9.1 Absolute Neuts (auto) Neutrophils % Lymphocytes % Monocytes % Eosinophils % Basophils % Nucleated RBC % Retic Count PT with INR 14.90 H INR 1.26 H PTT (Actin FS) 43.0 H Sodium 141 Potassium 4.0 Chloride 109 H Carbon Dioxide 23 Anion Gap 9 BUN 62.0 H Creatinine 2.2 H Est GFR (CKD-EPI)AfAm 33.21 Est GFR (CKD-EPI)NonAf 28.66 POC Glucometer Random Glucose 124 H Lactic Acid Calcium 9.0 Phosphorus 4.3 Magnesium 2.6 H Iron TIBC Iron Saturation Unsaturated IBC Ferritin Total Bilirubin 6.0 H Direct Bilirubin AST 34 ALT 35 Alkaline Phosphatase 189 H Ammonia Creatine Kinase Troponin I Total Protein 6.0 L Albumin 3.0 L Urine Color Urine Appearance Urine pH Ur Specific [place] Urine Protein Urine Glucose (UA) Urine Ketones Urine Blood Urine Nitrite Urine Bilirubin Urine Urobilinogen Ur Leukocyte Esterase 03/28/19 03/28/19 03/28/19 07:37 07:37 07:37 WBC RBC Hgb Hct MCV MCH MCHC RDW Plt Count MPV Absolute Neuts (auto) Neutrophils % Lymphocytes % Monocytes % Eosinophils % Basophils % Nucleated RBC % Retic Count 4.56 H D PT with INR INR PTT (Actin FS) Sodium Potassium Chloride Carbon Dioxide Anion Gap BUN Creatinine Est GFR (CKD-EPI)AfAm Est GFR (CKD-EPI)NonAf POC Glucometer Random Glucose Lactic Acid Calcium Phosphorus Magnesium Iron 227 H TIBC 246 L Iron Saturation 92 H Unsaturated IBC 19 L Ferritin 227.2 Total Bilirubin Direct Bilirubin 0.7 H AST ALT Alkaline Phosphatase Ammonia Creatine Kinase Troponin I Total Protein Albumin Urine Color Urine Appearance Urine pH Ur Specific [place] Urine Protein Urine Glucose (UA) Urine Ketones Urine Blood Urine Nitrite Urine Bilirubin Urine Urobilinogen Ur Leukocyte Esterase 03/28/19 11:46 WBC RBC Hgb Hct MCV MCH MCHC RDW Plt Count MPV Absolute Neuts (auto) Neutrophils % Lymphocytes % Monocytes % Eosinophils % Basophils % Nucleated RBC % Retic Count PT with INR INR PTT (Actin FS) Sodium Potassium Chloride Carbon Dioxide Anion Gap BUN Creatinine Est GFR (CKD-EPI)AfAm Est GFR (CKD-EPI)NonAf POC Glucometer 251 Random Glucose Lactic Acid Calcium Phosphorus Magnesium Iron TIBC Iron Saturation Unsaturated IBC Ferritin Total Bilirubin Direct Bilirubin AST ALT Alkaline Phosphatase Ammonia Creatine Kinase Troponin I Total Protein Albumin Urine Color Urine Appearance Urine pH Ur Specific [place] Urine Protein Urine Glucose (UA) Urine Ketones Urine Blood Urine Nitrite Urine Bilirubin Urine Urobilinogen Ur Leukocyte Esterase Current Medications Generic Name Dose Route Start Last Admin Trade Name Ritoq PRN Reason Stop Dose Admin Folic Acid 1 mg 03/28/19 10:00 03/28/19 10:37 Folic Acid - PO 1 mg DAILY MYNOR Administration Heparin Sodium (Porcine) 5,000 unit 03/28/19 06:00 03/28/19 06:09 Heparin - SQ 5,000 unit TID MYNOR Administration Sodium Chloride 1,000 mls @ 42 mls/hr 03/27/19 21:00 03/27/19 21:11 Normal Saline - IV 42 mls/hr ASDIR MYNOR Administration Insulin Aspart 1 vial 03/27/19 22:00 03/28/19 11:49 Novolog Vial Sliding Scale - SQ 6 units ACHS MYNOR Administration Protocol Insulin Detemir 15 units 03/27/19 22:00 03/27/19 22:09 Levemir Vial SQ 15 unit HS MYNOR Administration Insulin Detemir 20 units 03/28/19 07:00 03/28/19 06:12 Levemir Vial SQ 20 units AM MYNOR Administration Lactulose 30 gm 03/28/19 09:15 03/28/19 10:36 Cephulac (Oral Use) PO 30 gm Q6H MYNOR Administration Nadolol 80 mg 03/28/19 10:00 Corgard - PO DAILY MYNOR Nystatin 1 applic 03/28/19 10:00 Nystop Powder - TP DAILY MYNOR Rifaximin 550 mg 03/27/19 22:00 03/28/19 10:37 Xifaxan - PO 550 mg BID MYNOR Administration Tamsulosin HCl 0.4 mg 03/27/19 22:00 03/27/19 22:02 Flomax - PO 0.4 mg HS MYNOR Administration Thiamine HCl 100 mg 03/28/19 22:00 Vitamin B1 - PO HS [facility] Home Medications Medication Instructions Recorded Insulin Lispro [Humalog] 6 - 8 unit SQ AC 09/06/14 Omeprazole 20 mg PO DAILY 11/05/18 Tamsulosin HCl [Flomax] 0.4 mg PO HS 11/05/18 Insulin (Levemir) [Levemir Vial] 15 units SQ HS #1 vial 11/08/18 Insulin (Levemir) [Levemir Vial] 20 units SQ AM #1 vial 11/08/18 Nadolol [Corgard -] 80 mg PO DAILY #60 tablet 11/08/18 Nystatin Powder [Nystop Powder -] 1 applic TP DAILY #1 applic 11/08/18 Rifaximin [Xifaxan -] 550 mg PO BID #60 tablet 11/08/18 Lactulose (Oral Use) [Cephulac -] 20 gm PO BID #1 udc 12/02/18 Carvedilol 12.5 mg PO BID 03/28/19 Nadolol 40 mg PO TID 03/28/19 Ramipril 5 mg PO DAILY 03/28/19 Spironolactone 25 mg PO DAILY 03/28/19 ASSESSMENT AND PLAN: 74 year old male with DM 2, Cirrhosis sec to prior alcohol use, Hx of variceal banding, hepatic encephalopathy, CHF, COPD, HTN, Hx of Klebsiella UTI, BPH, brought in to the ED with complaints of altered mental status by family members. 1. Hepatic Encephalopathy CT Head negative for acute intracranial findings. Lactulose/Rifaximin to maintain 3-4 soft BMs daily. GI consulted. 2. Liver Cirrhosis with portal gastropathy and history of variceal banding No evidence of decompensation/SBP/bleeding. 3. Thrombocytopenia secondary to Liver Cirrhosis - no active bleeding. Some bruising UEs. Will monitor. 4. DM 2 - Maintain on sliding scale Novolog. 5. SOPHIE on CKD 3 - will monitor closely. No clear evidence currently of Hepatorenal Syndrome. Spironolactone and Ramipril held. If no improvement in renal function, will consult Nephrology. 6. Hypoalbuminemia sec to decreased Hepatic Synthetic function. Will ensure adequate oral nutrition. 7. HTN - Continue BB (need to clarify - nadolol vs carvedilol). Spironolactone and Ramipril held due to SOPHIE. 8. BPH - Continue Tamsulosin. DVT Px - Heparin SQ
--- NOTE | 2019-03-28 13:46 | PN ---
Physical Exam: SUBJECTIVE: 74 y/o M w PMH DM 2, cirrhosis 2/2 etoh abuse, h/o variceal banding , hepatic encephalopathy, CHF, COPD, HTN, whom was brought in with AMS by family. Pt given lactulose and rifaximin and improved. Now being monitored. Overnight there were no acute events. Pt offers no complaints. He denies NVFD. Awaiting RUQ US. OBJECTIVE: Vital Signs Temp Pulse Resp BP Pulse Ox 98.0 F 65 20 127/63 100 03/28/19 06:43 03/28/19 06:43 03/28/19 09:00 03/28/19 06:43 03/28/19 09:00 GENERAL: The patient is awake, alert, and fully oriented, in no acute distress. HEAD: Normal with no signs of trauma. EYES: PERRL, extraocular movements intact, sclera anicteric, conjunctiva clear. No ptosis. ENT: Ears normal, nares patent, oropharynx clear without exudates, moist mucous membranes. NECK: Trachea midline, full range of motion, supple. LUNGS: Breath sounds equal, clear to auscultation bilaterally, no wheezes, no crackles, no accessory muscle use. HEART: Regular rate and rhythm, S1, S2 without murmur, rub or gallop. ABDOMEN: Soft, nontender, nondistended, normoactive bowel sounds, no guarding, no rebound, no hepatosplenomegaly, no masses. EXTREMITIES: 2+ pulses, warm, well-perfused, no edema. NEUROLOGICAL: Cranial nerves II through XII grossly intact. Normal speech, gait not observed. PSYCH: Normal mood, normal affect. SKIN: Warm, dry, normal turgor, no rashes or lesions noted Laboratory Results - last 24 hr 03/27/19 03/27/19 03/27/19 17:45 17:45 17:45 WBC 3.9 L RBC 3.06 L Hgb 10.4 L Hct 30.1 L D MCV 98.1 H MCH 34.1 H MCHC 34.7 RDW 18.3 H Plt Count 90 L D MPV 9.8 D Absolute Neuts (auto) 2.3 Neutrophils % 58.5 Lymphocytes % 30.5 D Monocytes % 7.5 Eosinophils % 2.9 Basophils % 0.6 Nucleated RBC % 0 Retic Count PT with INR INR PTT (Actin FS) Sodium 137 Potassium 4.6 Chloride 105 Carbon Dioxide 22 Anion Gap 10 BUN 61.6 H Creatinine 2.4 H Est GFR (CKD-EPI)AfAm 29.89 Est GFR (CKD-EPI)NonAf 25.79 POC Glucometer Random Glucose 287 H Lactic Acid Calcium 8.9 Phosphorus Magnesium Iron TIBC Iron Saturation Unsaturated IBC Ferritin Total Bilirubin 5.4 H Direct Bilirubin AST 36 ALT 38 Alkaline Phosphatase 217 H Ammonia Creatine Kinase Troponin I Total Protein 6.5 Albumin 3.3 L Urine Color Dk yellow Urine Appearance Cloudy Urine pH 5.0 Ur Specific [place] 1.015 Urine Protein Negative Urine Glucose (UA) Negative Urine Ketones Negative Urine Blood Negative Urine Nitrite Negative Urine Bilirubin Negative Urine Urobilinogen 1.0 Ur Leukocyte Esterase Negative 03/27/19 03/27/19 03/27/19 17:45 17:45 17:48 WBC RBC Hgb Hct MCV MCH MCHC RDW Plt Count MPV Absolute Neuts (auto) Neutrophils % Lymphocytes % Monocytes % Eosinophils % Basophils % Nucleated RBC % Retic Count PT with INR 14.90 H INR 1.26 H PTT (Actin FS) 40.6 H Sodium Potassium Chloride Carbon Dioxide Anion Gap BUN Creatinine Est GFR (CKD-EPI)AfAm Est GFR (CKD-EPI)NonAf POC Glucometer Random Glucose Lactic Acid 2.2 H* Calcium Phosphorus Magnesium Iron TIBC Iron Saturation Unsaturated IBC Ferritin Total Bilirubin Direct Bilirubin AST ALT Alkaline Phosphatase Ammonia Creatine Kinase 52 Troponin I < 0.02 Total Protein Albumin Urine Color Urine Appearance Urine pH Ur Specific [place] Urine Protein Urine Glucose (UA) Urine Ketones Urine Blood Urine Nitrite Urine Bilirubin Urine Urobilinogen Ur Leukocyte Esterase 03/27/19 03/27/19 03/27/19 17:48 17:53 21:44 WBC RBC Hgb Hct MCV MCH MCHC RDW Plt Count MPV Absolute Neuts (auto) Neutrophils % Lymphocytes % Monocytes % Eosinophils % Basophils % Nucleated RBC % Retic Count PT with INR INR PTT (Actin FS) Sodium Potassium Chloride Carbon Dioxide Anion Gap BUN Creatinine Est GFR (CKD-EPI)AfAm Est GFR (CKD-EPI)NonAf POC Glucometer 261 257 Random Glucose Lactic Acid Calcium Phosphorus Magnesium Iron TIBC Iron Saturation Unsaturated IBC Ferritin Total Bilirubin Direct Bilirubin AST ALT Alkaline Phosphatase Ammonia 158.30 H Creatine Kinase Troponin I Total Protein Albumin Urine Color Urine Appearance Urine pH Ur Specific [place] Urine Protein Urine Glucose (UA) Urine Ketones Urine Blood Urine Nitrite Urine Bilirubin Urine Urobilinogen Ur Leukocyte Esterase 03/27/19 03/28/19 03/28/19 22:58 06:11 07:33 WBC RBC Hgb Hct MCV MCH MCHC RDW Plt Count MPV Absolute Neuts (auto) Neutrophils % Lymphocytes % Monocytes % Eosinophils % Basophils % Nucleated RBC % Retic Count PT with INR INR PTT (Actin FS) Sodium Potassium Chloride Carbon Dioxide Anion Gap BUN Creatinine Est GFR (CKD-EPI)AfAm Est GFR (CKD-EPI)NonAf POC Glucometer 235 118 Random Glucose Lactic Acid 1.8 Calcium Phosphorus Magnesium Iron TIBC Iron Saturation Unsaturated IBC Ferritin Total Bilirubin Direct Bilirubin AST ALT Alkaline Phosphatase Ammonia Creatine Kinase Troponin I Total Protein Albumin Urine Color Urine Appearance Urine pH Ur Specific [place] Urine Protein Urine Glucose (UA) Urine Ketones Urine Blood Urine Nitrite Urine Bilirubin Urine Urobilinogen Ur Leukocyte Esterase 03/28/19 03/28/19 03/28/19 07:37 07:37 07:37 WBC 3.4 L RBC 2.65 L Hgb 9.2 L Hct 25.6 L MCV 96.6 H MCH 34.7 H MCHC 36.0 H RDW 17.9 H Plt Count 80 L MPV 9.1 Absolute Neuts (auto) Neutrophils % Lymphocytes % Monocytes % Eosinophils % Basophils % Nucleated RBC % Retic Count PT with INR 14.90 H INR 1.26 H PTT (Actin FS) 43.0 H Sodium 141 Potassium 4.0 Chloride 109 H Carbon Dioxide 23 Anion Gap 9 BUN 62.0 H Creatinine 2.2 H Est GFR (CKD-EPI)AfAm 33.21 Est GFR (CKD-EPI)NonAf 28.66 POC Glucometer Random Glucose 124 H Lactic Acid Calcium 9.0 Phosphorus 4.3 Magnesium 2.6 H Iron TIBC Iron Saturation Unsaturated IBC Ferritin Total Bilirubin 6.0 H Direct Bilirubin AST 34 ALT 35 Alkaline Phosphatase 189 H Ammonia Creatine Kinase Troponin I Total Protein 6.0 L Albumin 3.0 L Urine Color Urine Appearance Urine pH Ur Specific [place] Urine Protein Urine Glucose (UA) Urine Ketones Urine Blood Urine Nitrite Urine Bilirubin Urine Urobilinogen Ur Leukocyte Esterase 03/28/19 03/28/19 03/28/19 07:37 07:37 07:37 WBC RBC Hgb Hct MCV MCH MCHC RDW Plt Count MPV Absolute Neuts (auto) Neutrophils % Lymphocytes % Monocytes % Eosinophils % Basophils % Nucleated RBC % Retic Count 4.56 H D PT with INR INR PTT (Actin FS) Sodium Potassium Chloride Carbon Dioxide Anion Gap BUN Creatinine Est GFR (CKD-EPI)AfAm Est GFR (CKD-EPI)NonAf POC Glucometer Random Glucose Lactic Acid Calcium Phosphorus Magnesium Iron 227 H TIBC 246 L Iron Saturation 92 H Unsaturated IBC 19 L Ferritin 227.2 Total Bilirubin Direct Bilirubin 0.7 H AST ALT Alkaline Phosphatase Ammonia Creatine Kinase Troponin I Total Protein Albumin Urine Color Urine Appearance Urine pH Ur Specific [place] Urine Protein Urine Glucose (UA) Urine Ketones Urine Blood Urine Nitrite Urine Bilirubin Urine Urobilinogen Ur Leukocyte Esterase 03/28/19 11:46 WBC RBC Hgb Hct MCV MCH MCHC RDW Plt Count MPV Absolute Neuts (auto) Neutrophils % Lymphocytes % Monocytes % Eosinophils % Basophils % Nucleated RBC % Retic Count PT with INR INR PTT (Actin FS) Sodium Potassium Chloride Carbon Dioxide Anion Gap BUN Creatinine Est GFR (CKD-EPI)AfAm Est GFR (CKD-EPI)NonAf POC Glucometer 251 Random Glucose Lactic Acid Calcium Phosphorus Magnesium Iron TIBC Iron Saturation Unsaturated IBC Ferritin Total Bilirubin Direct Bilirubin AST ALT Alkaline Phosphatase Ammonia Creatine Kinase Troponin I Total Protein Albumin Urine Color Urine Appearance Urine pH Ur Specific [place] Urine Protein Urine Glucose (UA) Urine Ketones Urine Blood Urine Nitrite Urine Bilirubin Urine Urobilinogen Ur Leukocyte Esterase Active Medications Folic Acid (Folic Acid -) 1 mg PO DAILY [facility] Last Admin: 03/28/19 10:37 Dose: 1 mg Heparin Sodium (Porcine) (Heparin -) 5,000 unit SQ TID [facility] Last Admin: 03/28/19 06:09 Dose: 5,000 unit Sodium Chloride (Normal Saline -) 1,000 mls @ 42 mls/hr IV ASDIR [facility] Last Admin: 03/27/19 21:11 Dose: 42 mls/hr Insulin Aspart (Novolog Vial Sliding Scale -) 1 vial SQ ACHS [facility]; Protocol Last Admin: 03/28/19 11:49 Dose: 6 units Insulin Detemir (Levemir Vial) 15 units SQ HS [facility] Last Admin: 03/27/19 22:09 Dose: 15 unit Insulin Detemir (Levemir Vial) 20 units SQ AM [facility] Last Admin: 03/28/19 06:12 Dose: 20 units Lactulose (Cephulac (Oral Use)) 30 gm PO Q6H [facility] Last Admin: 03/28/19 10:36 Dose: 30 gm Nadolol (Corgard -) 80 mg PO DAILY [facility] Nystatin (Nystop Powder -) 1 applic TP DAILY [facility] Rifaximin (Xifaxan -) 550 mg PO BID [facility] Last Admin: 03/28/19 10:37 Dose: 550 mg Tamsulosin HCl (Flomax -) 0.4 mg PO HS [facility] Last Admin: 03/27/19 22:02 Dose: 0.4 mg Thiamine HCl (Vitamin B1 -) 100 mg PO HS [facility] ASSESSMENT/PLAN: 74 y/o M w PMH DM 2, cirrhosis 2/2 etoh abuse, h/o variceal banding, hepatic encephalopathy, CHF, COPD, HTN, whom was brought in with AMS by family. Pt given lactulose and rifaximin and improved. Now being monitored. # Hepatic encephalopathy - CT head NEG - Lactulose 30g q8 hours hrs. Goal: 4-5 loose BM's per day - Rifaximin 550mg PO BID - Continue beta bloker given h/o esophageal varices with bleed - Gentle IV hydration - Monitor mental status - Daily ammonia level - Aspiration precautions - GI consulted (Dr. Sellers) # Liver cirrhosis w portal gastropathy & h/o variceal banding - No evidence of decompensation/SBP/bleedin # Thrombocytopenia 2/2 liver cirrhosis - No active bleeding - Some bruising UEs - Cont. to monitor. # DM 2 - ISS (Novolog) # SOPHIE on CKD 3 - Cont. to monitor - No clear evidence currently of hepatorenal syndrome - Spironolactone and ramipril held - If no improvement in renal function, will consult nephrology. # Hypoalbuminemia 2/2 decreased hepatic synthetic function - Ensure adequate oral nutrition. # HTN - Continue BB - Home dose Nadolol 40 mg TID - Spironolactone and ramipril held due to SOPHIE # BPH - Cont. tamsulosin. # DVT prophylaxis - Heparin # F/E/N - No standing fluids - Cont. to monitor electrolytes - Diabetic, low sodium diet Yayo Crow MD Visit type - Emergency Visit Emergency Visit: No - New Patient This patient is new to me today: Yes Date on this admission: 03/28/19 - Critical Care Critical Care patient: No - Discharge Referral Referred to [facility] Med [facility] No ATTENDING PHYSICIAN STATEMENT I saw and evaluated the patient. I reviewed the resident's note and discussed the case with the resident. I agree with the resident's findings and plan as documented. SUBJECTIVE: OBJECTIVE: ASSESSMENT AND PLAN:
[2019-03-28] MEDS: NYSTATIN POWDER 100,000 UNITS/GM - 15 GM TOPICAL POWDER TP SCH (17:44)
[2019-03-28] MEDS: TAMSULOSIN HCL 0.4 MG CAP PO SCH (21:09)
[2019-03-28] MEDS: SODIUM CHLORIDE 1,000 ML IV SCH (21:10)
[2019-03-28] MEDS ORDERED: THIAMINE HCL 100 MG TABLET (FP) PO SCH (22:00)
[2019-03-29 06:20] VITALS: TEMP 98.4
[2019-03-29] MEDS: INSULIN (LEVEMIR) 100 UNITS/ML UNITS SQ SCH (06:22)
[2019-03-29] MEDS: HEPARIN NA (PORCINE) 5,000 UNITS/ML 1ML VIAL SQ SCH (06:22)
[2019-03-29] MEDS: INSULIN SLIDING SCALE (NOVOLOG) 1 VIAL SQ SCH ×3 (06:23→17:01)
[2019-03-29 09:31] LABS: BASO % 0.8 % (0-2.0); EOS % 4.5 % (0-4.5); HEMATOCRIT 24.8 % (35.4-49); HEMOGLOBIN 8.9 GM/dL (11.7-16.9); LYMPH % 38.1 % (8-40); MCH 34.7 pg (25.7-33.7); MCHC 35.9 g/dl (32.0-35.9); MEAN CELL VOLUME 96.7 fl (80-96); MEAN PLT VOLUME 9.3 fl (7.5-11.1); MONO % 10.5 % (3.8-10.2); NEUT % 46.1 % (42.8-82.8); PLATELET COUNT 63 K/MM3 (134-434); RBC 2.56 M/mm3 (4.00-5.60); WHITE BLOOD COUNT 2.9 K/mm3 (4.0-10.0)
[2019-03-29] MEDS ORDERED: PT OWN MED DRAWER 7, Y5N ONE ×2 (09:37→09:44)
[2019-03-29] MEDS: NYSTATIN POWDER 100,000 UNITS/GM - 15 GM TOPICAL POWDER TP SCH (09:45)
[2019-03-29] MEDS: LACTULOSE 20 GM/30 ML UDC (FOR ORAL USE ONLY) PO SCH ×2 (09:45→17:01)
[2019-03-29] MEDS: RIFAXIMIN 550 MG TABLET (UD) PO SCH (09:45)
[2019-03-29] MEDS: FOLIC ACID 1 MG TABLET (FP) PO SCH (09:45)
[2019-03-29 09:47] LABS: ALBUMIN 2.7 g/dl (3.4-5.0); BILIRUBIN,TOTAL 4.9 mg/dL (0.2-1); BLOOD UREA NITROGEN 45.6 mg/dL (7-18); CALCIUM 8.4 mg/dL (8.5-10.1); CREATININE 1.8 mg/dL (0.55-1.3); MAGNESIUM 2.5 mg/dL (1.8-2.4); PHOSPHOROUS 3.3 mg/dL (2.5-4.9); POTASSIUM 4.4 mmol/L (3.5-5.1); TOT PROT 5.5 g/dl (6.4-8.2)
--- NOTE | 2019-03-29 10:20 | PN ---
Physical Exam: SUBJECTIVE: 74 y/o M w PMH DM 2, cirrhosis 2/2 etoh abuse, h/o variceal banding , hepatic encephalopathy, CHF, COPD, HTN, whom was brought in with AMS by family. Pt given lactulose and rifaximin in ED and improved. Now being monitored. Overnight there were no acute events. He refused lactulose last night but will take today. Pt offers no complaints. He denies NVFD Called son, José Manuel Marie, to discuss home bowel regimen and necessary safety [phone] and son states preferene for pt to remain how, agreeing to family' s ability to manage care at home. OBJECTIVE: Vital Signs Period Temp Pulse Resp BP Sys/Blokc Pulse Ox Last 24 Hr 98.0 F-98.4 F 68-72 18-20 108-141/58-65 100 BL Extensor surface echymoses. Minimal/decreased asterixis today GENERAL: The patient is awake, alert, and fully oriented, in no acute distress. HEAD: Normocephalic. Mid glabellar healed scar. EYES: KATYA, EOMI, sclera anicteric, conjunctiva clear. No ptosis. ENT: Ears normal, nares patent, oropharynx clear without exudates, moist mucous membranes. NECK: Trachea midline, full range of motion, supple. LUNGS: Breath sounds equal, clear to auscultation bilaterally, no wheezes, no crackles, no accessory muscle use. HEART: Regular rate and rhythm, S1, S2 without murmur, rub or gallop. ABDOMEN: Soft, nontender, nondistended, normoactive bowel sounds, no guarding, no rebound, no hepatosplenomegaly, no masses. EXTREMITIES: 2+ pulses, warm, well-perfused, no edema. NEUROLOGICAL: Cranial nerves II through XII grossly intact. Normal speech, gait not observed. PSYCH: Normal mood, normal affect. SKIN: Warm, dry, normal turgor, no rashes or lesions noted Laboratory Results - last 24 hr 03/28/19 03/28/19 03/28/19 11:46 17:40 21:13 Sodium Potassium Chloride Carbon Dioxide Anion Gap BUN Creatinine Est GFR (CKD-EPI)AfAm Est GFR (CKD-EPI)NonAf POC Glucometer 251 286 277 Random Glucose Calcium Phosphorus Magnesium Total Bilirubin AST ALT Alkaline Phosphatase Ammonia Total Protein Albumin 03/29/19 03/29/19 03/29/19 06:21 07:44 09:10 Sodium 139 Potassium 4.4 Chloride 110 H Carbon Dioxide 22 Anion Gap 7 L BUN 45.6 H Creatinine 1.8 H Est GFR (CKD-EPI)AfAm 42.33 Est GFR (CKD-EPI)NonAf 36.52 POC Glucometer 148 Random Glucose 142 H Calcium 8.4 L Phosphorus 3.3 Magnesium 2.5 H Total Bilirubin 4.9 H AST 39 H ALT 38 Alkaline Phosphatase 190 H Ammonia 103.50 H Total Protein 5.5 L Albumin 2.7 L Active Medications Folic Acid (Folic Acid -) 1 mg PO DAILY [facility] Last Admin: 03/29/19 09:45 Dose: 1 mg Heparin Sodium (Porcine) (Heparin -) 5,000 unit SQ TID [facility] Last Admin: 03/29/19 06:22 Dose: 5,000 unit Sodium Chloride (Normal Saline -) 1,000 mls @ 42 mls/hr IV ASDIR [facility] Last Admin: 03/28/19 21:10 Dose: Not Given Insulin Aspart (Novolog Vial Sliding Scale -) 1 vial SQ [facility]; Protocol Last Admin: 03/29/19 06:23 Dose: Not Given Insulin Detemir (Levemir Vial) 15 units SQ HS [facility] Last Admin: 03/28/19 21:14 Dose: 15 unit Insulin Detemir (Levemir Vial) 20 units SQ AM [facility] Last Admin: 03/29/19 06:22 Dose: 20 units Lactulose (Cephulac (Oral Use)) 30 gm PO Q8H [facility] Last Admin: 03/29/19 09:45 Dose: 30 gm Nadolol (Corgard -) 80 mg PO DAILY [facility] Last Admin: 03/29/19 09:43 Dose: 80 mg Nystatin (Nystop Powder -) 1 applic TP DAILY [facility] Last Admin: 03/29/19 09:45 Dose: 1 applic Rifaximin (Xifaxan -) 550 mg PO BID [facility] Last Admin: 03/29/19 09:45 Dose: 550 mg Tamsulosin HCl (Flomax -) 0.4 mg PO [facility] Last Admin: 03/28/19 21:09 Dose: 0.4 mg Thiamine HCl (Vitamin B1 -) 100 mg PO [facility] Last Admin: 03/28/19 21:10 Dose: 100 mg ASSESSMENT/PLAN: 74 y/o M w PMH DM 2, cirrhosis 2/2 etoh abuse, h/o variceal banding, hepatic encephalopathy, CHF, COPD, HTN, whom was brought in with AMS by family. Pt given lactulose and rifaximin and improved. Now being monitored. # Hepatic encephalopathy - CT head NEG - Lactulose 30g q8 hours hrs. Goal: 4-5 loose BM's per day. Refused overnight but willign tis AM. - Rifaximin 550mg PO BID - Continue beta yamil given h/o esophageal varices with bleed - Gentle IV hydration - Monitor mental status. AOx3 today. Orientable. - Elevated ammonia level 103.5. Cont. QD ammonia level - Aspiration precautions - GI consulted (Dr. Sellers) # Liver cirrhosis w portal gastropathy & h/o variceal banding - No evidence of decompensation/SBP/bleedin # Thrombocytopenia 2/2 liver cirrhosis - No active bleeding - Low plt 63 today - Some echymoses on BL extensor surface of upper extremities - Cont. to monitor. # US finding - CBD WNL - Echogenic liver suggestive of fatty infiltration vs hepatocellular disease. Please correlate with liver enzymes. - Recanalization of the umbilical vein compatible with previously noted liver cirrhosis on prior CT scan of the abdomen pelvis dated 11/29/2018 - CT w contrast needed: Questionable focal parenchymal is abnormality seen in the RIGHT hepatic lobe for which correlation with contrast-enhanced CT scan of the abd is needed to r/o any underlying lesion - F/u primary radiology rn, Dr. Marko Wynn, on d/c # DM 2 - ISS (Novolog) # SOPHIE on CKD 3 - Cont. to monitor - Baseline Cr about 1.7 in 2019 and 1.8 today - No clear evidence currently of hepatorenal syndrome - Spironolactone and ramipril held - If no improvement in renal function, will consult nephrology. # Hypoalbuminemia 2/2 decreased hepatic synthetic function - Ensure adequate oral nutrition. # HTN - Continue BB - Home dose Nadolol 40 mg TID - Spironolactone and ramipril held due to SOPHIE # BPH - Cont. tamsulosin. # DVT prophylaxis - Heparin d/c - SCD # F/E/N - No standing fluids - Cont. to monitor electrolytes - Diabetic, low sodium diet Yayo Crow MD Visit type - Emergency Visit Emergency Visit: No - New Patient This patient is new to me today: No - Critical Care Critical Care patient: No - Discharge Referral Referred to [facility] Med P.C[facility] No ATTENDING PHYSICIAN STATEMENT I saw and evaluated the patient. I reviewed the resident's note and discussed the case with the resident. I agree with the resident's findings and plan as documented. SUBJECTIVE: OBJECTIVE: ASSESSMENT AND PLAN:
[2019-03-29] MEDS ORDERED: INSULIN (NOVOLOG) ASPART 100 UNITS/ML 10ML VIAL ONE (11:12)
[2019-03-29 12:32] VITALS: BP 130/74; PULSE 74
--- NOTE | 2019-03-29 13:47 | PN ---
Teaching Attending Note Name of Resident: Yayo Crow ATTENDING PHYSICIAN STATEMENT I saw and evaluated the patient. I reviewed the resident's note and discussed the case with the resident. I agree with the resident's findings and plan as documented. SUBJECTIVE: Feeling better. Denies abdominal pain/nausea/vomiting. No fever/ chills. Multiple soft bowel movements daily. OBJECTIVE: Afebrile, Hemodynamically Stable. Last Vital Signs Temp Pulse Resp BP Pulse Ox 98.4 F 74 18 130/74 95 03/29/19 12:00 03/29/19 12:00 03/29/19 12:00 03/29/19 12:00 03/29/19 09:00 Heart - S1, S2, RRR Lungs - clear to auscultation Abdomen - Soft, non-tender. Bowel Sounds normal. Extremities - no edema, no calf tenderness. Neuro - AAO x 3. Tone/Power normal. Asterixis resolved. Laboratory Results - last 24 hr 03/28/19 03/28/19 03/29/19 17:40 21:13 06:21 WBC RBC Hgb Hct MCV MCH MCHC RDW Plt Count MPV Absolute Neuts (auto) Neutrophils % Lymphocytes % Monocytes % Eosinophils % Basophils % Nucleated RBC % Sodium Potassium Chloride Carbon Dioxide Anion Gap BUN Creatinine Est GFR (CKD-EPI)AfAm Est GFR (CKD-EPI)NonAf POC Glucometer 286 277 148 Random Glucose Calcium Phosphorus Magnesium Total Bilirubin AST ALT Alkaline Phosphatase Ammonia Total Protein Albumin 03/29/19 03/29/19 03/29/19 07:44 07:44 09:10 WBC 2.9 L RBC 2.56 L Hgb 8.9 L Hct 24.8 L MCV 96.7 H MCH 34.7 H MCHC 35.9 RDW 18.0 H Plt Count 63 L D MPV 9.3 Absolute Neuts (auto) 1.4 L Neutrophils % 46.1 D Lymphocytes % 38.1 D Monocytes % 10.5 H Eosinophils % 4.5 Basophils % 0.8 Nucleated RBC % 0 Sodium 139 Potassium 4.4 Chloride 110 H Carbon Dioxide 22 Anion Gap 7 L BUN 45.6 H Creatinine 1.8 H Est GFR (CKD-EPI)AfAm 42.33 Est GFR (CKD-EPI)NonAf 36.52 POC Glucometer Random Glucose 142 H Calcium 8.4 L Phosphorus 3.3 Magnesium 2.5 H Total Bilirubin 4.9 H AST 39 H ALT 38 Alkaline Phosphatase 190 H Ammonia 103.50 H Total Protein 5.5 L Albumin 2.7 L 03/29/19 11:10 WBC RBC Hgb Hct MCV MCH MCHC RDW Plt Count MPV Absolute Neuts (auto) Neutrophils % Lymphocytes % Monocytes % Eosinophils % Basophils % Nucleated RBC % Sodium Potassium Chloride Carbon Dioxide Anion Gap BUN Creatinine Est GFR (CKD-EPI)AfAm Est GFR (CKD-EPI)NonAf POC Glucometer 285 Random Glucose Calcium Phosphorus Magnesium Total Bilirubin AST ALT Alkaline Phosphatase Ammonia Total Protein Albumin Current Medications Generic Name Dose Route Start Last Admin Trade Name Freq PRN Reason Stop Dose Admin Folic Acid 1 mg 03/28/19 10:00 03/29/19 09:45 Folic Acid - PO 1 mg DAILY MYNOR Administration Sodium Chloride 1,000 mls @ 42 mls/hr 03/27/19 21:00 03/28/19 21:10 Normal Saline - IV Not Given ASDIR MYNOR Insulin Aspart 1 vial 03/27/19 22:00 03/29/19 11:16 Novolog Vial Sliding Scale - SQ 6 units ACHS MYNOR Administration Protocol Insulin Detemir 15 units 03/27/19 22:00 03/28/19 21:14 Levemir Vial SQ 15 unit HS MYNOR Administration Insulin Detemir 20 units 03/28/19 07:00 03/29/19 06:22 Levemir Vial SQ 20 units AM MYNOR Administration Lactulose 30 gm 03/29/19 08:01 03/29/19 09:45 Cephulac (Oral Use) PO 30 gm Q8H MYNOR Administration Nadolol 80 mg 03/28/19 10:00 03/29/19 09:43 Corgard - PO 80 mg DAILY MYNOR Administration Nystatin 1 applic 03/28/19 10:00 03/29/19 09:45 Nystop Powder - TP 1 applic DAILY MYNOR Administration Rifaximin 550 mg 03/27/19 22:00 03/29/19 09:45 Xifaxan - PO 550 mg BID MYNOR Administration Tamsulosin HCl 0.4 mg 03/27/19 22:00 03/28/19 21:09 Flomax - PO 0.4 mg HS MY[facility] Administration Thiamine HCl 100 mg 03/28/19 22:00 03/28/19 21:10 Vitamin B1 - PO 100 mg HS MYNOR Administration Home Medications Medication Instructions Recorded Insulin Lispro [Humalog] 6 - 8 unit SQ AC 09/06/14 Omeprazole 20 mg PO DAILY 11/05/18 Tamsulosin HCl [Flomax] 0.4 mg PO HS 11/05/18 Insulin (Levemir) [Levemir Vial] 15 units SQ HS #1 vial 11/08/18 Insulin (Levemir) [Levemir Vial] 20 units SQ AM #1 vial 11/08/18 Nadolol [Corgard -] 80 mg PO DAILY #60 tablet 11/08/18 Nystatin Powder [Nystop Powder -] 1 applic TP DAILY #1 applic 11/08/18 Rifaximin [Xifaxan -] 550 mg PO BID #60 tablet 11/08/18 Lactulose (Oral Use) [Cephulac -] 20 gm PO BID #1 udc 12/02/18 Carvedilol 12.5 mg PO BID 03/28/19 Nadolol 40 mg PO TID 03/28/19 Ramipril 5 mg PO DAILY 03/28/19 Spironolactone 25 mg PO DAILY 03/28/19 ASSESSMENT AND PLAN: 74 year old male with DM 2, Cirrhosis sec to prior alcohol use, Hx of variceal banding, hepatic encephalopathy, CHF, COPD, HTN, Hx of Klebsiella UTI, BPH, brought in to the ED with complaints of altered mental status by family members. 1. Hepatic Encephalopathy - resolved. Ammonia levels improving. CT Head negative for acute intracranial findings. Lactulose/Rifaximin to maintain 3-4 soft BMs daily. GI to follow as out-patient. 2. Liver Cirrhosis with portal gastropathy and history of variceal banding No evidence of decompensation/SBP/bleeding. 3. Pancytopenia secondary to Liver Cirrhosis - out-patient follow-up/monitoring. 4. DM 2 - resume home insulin regimen. Importance of tight glucose control stressed. 5. SOPHIE on CKD 3 - resolved. Resume Ramipril and Spironolactone. Repeat Labs next week. 6. HTN - Continue Nadolol, Spironolactone, and Ramipril. Repeat renal function labwork next week. 7. BPH - Continue Tamsulosin. Medically stable for discharge. Repeat CBC/Chem requested for next week along with GI follow up. Importance of tight glucose control, insulin compliance, lactulose compliance to maintain at least 4 soft BMs daily repeatedly stressed and emphasized.
--- NOTE | 2019-03-29 14:24 | DS ---
Physical Exam: SUBJECTIVE: 74 y/o M w PMH DM 2, cirrhosis 2/2 etoh abuse, h/o variceal banding , hepatic encephalopathy, CHF, COPD, HTN, whom was brought in with AMS by family. Pt given lactulose and rifaximin in ED and improved. Monitored on floor. Overnight there were no acute events. Pt offers no complaints. He denies NVFD Called son, José Manuel Marie, to discuss home bowel regimen and necessary safety [phone] and son states preference for pt to remain how, agreeing to family 's ability to manage care at home. OBJECTIVE: Vital Signs Temp Pulse Resp BP Pulse Ox 98.4 F 74 18 130/74 95 03/29/19 12:00 03/29/19 12:00 03/29/19 12:00 03/29/19 12:00 03/29/19 09:00 PHYSICAL EXAM GENERAL: The patient is awake, alert, and fully oriented, in no acute distress. HEAD: Normocephalic. Mid glabellar healed scar. EYES: KATYA, EOMI, sclera anicteric, conjunctiva clear. No ptosis. ENT: Ears normal, nares patent, oropharynx clear without exudates, moist mucous membranes. NECK: Trachea midline, full range of motion, supple. LUNGS: Breath sounds equal, clear to auscultation bilaterally, no wheezes, no crackles, no accessory muscle use. HEART: Regular rate and rhythm, S1, S2 without murmur, rub or gallop. ABDOMEN: Soft, nontender, nondistended, normoactive bowel sounds, no guarding, no rebound, no hepatosplenomegaly, no masses. EXTREMITIES: BL Extensor surface echymoses. 2+ pulses, warm, well-perfused, no edema. NEUROLOGICAL: Minimal/decreased asterixis today. Cranial nerves II through XII grossly intact. Normal speech, gait not observed. PSYCH: Normal mood, normal affect. SKIN: Warm, dry, normal turgor, BL Extensor surface echymoses. LABS Laboratory Results - last 24 hr 03/28/19 03/28/19 03/29/19 17:40 21:13 06:21 WBC RBC Hgb Hct MCV MCH MCHC RDW Plt Count MPV Absolute Neuts (auto) Neutrophils % Lymphocytes % Monocytes % Eosinophils % Basophils % Nucleated RBC % Sodium Potassium Chloride Carbon Dioxide Anion Gap BUN Creatinine Est GFR (CKD-EPI)AfAm Est GFR (CKD-EPI)NonAf POC Glucometer 286 277 148 Random Glucose Calcium Phosphorus Magnesium Total Bilirubin AST ALT Alkaline Phosphatase Ammonia Total Protein Albumin 03/29/19 03/29/19 03/29/19 07:44 07:44 09:10 WBC 2.9 L RBC 2.56 L Hgb 8.9 L Hct 24.8 L MCV 96.7 H MCH 34.7 H MCHC 35.9 RDW 18.0 H Plt Count 63 L D MPV 9.3 Absolute Neuts (auto) 1.4 L Neutrophils % 46.1 D Lymphocytes % 38.1 D Monocytes % 10.5 H Eosinophils % 4.5 Basophils % 0.8 Nucleated RBC % 0 Sodium 139 Potassium 4.4 Chloride 110 H Carbon Dioxide 22 Anion Gap 7 L BUN 45.6 H Creatinine 1.8 H Est GFR (CKD-EPI)AfAm 42.33 Est GFR (CKD-EPI)NonAf 36.52 POC Glucometer Random Glucose 142 H Calcium 8.4 L Phosphorus 3.3 Magnesium 2.5 H Total Bilirubin 4.9 H AST 39 H ALT 38 Alkaline Phosphatase 190 H Ammonia 103.50 H Total Protein 5.5 L Albumin 2.7 L 03/29/19 11:10 WBC RBC Hgb Hct MCV MCH MCHC RDW Plt Count MPV Absolute Neuts (auto) Neutrophils % Lymphocytes % Monocytes % Eosinophils % Basophils % Nucleated RBC % Sodium Potassium Chloride Carbon Dioxide Anion Gap BUN Creatinine Est GFR (CKD-EPI)AfAm Est GFR (CKD-EPI)NonAf POC Glucometer 285 Random Glucose Calcium Phosphorus Magnesium Total Bilirubin AST ALT Alkaline Phosphatase Ammonia Total Protein Albumin HOSPITAL COURSE: Date of Admission:03/27/19 74 y/o M w PMH DM 2, cirrhosis 2/2 etoh abuse, h/o variceal banding, hepatic encephalopathy, CHF, COPD, HTN, whom was brought in with AMS by family. Pt given lactulose and rifaximin and improved. Pt brought to unit w goal of reducing symptomatic uremia/hepatic encephalopathy. CT head NEG. Treatment regimen included lactulose 30g q8 hours and Rifaximin 550mg PO BID hrs w goal of 4-5 loose BM's per day. Continued beta yamil given h/o esophageal varices with bleed. Provided gentle IV hydration. Monitored mental status closely. Ammonia level reduced over stay. Aspiration precautions were made. GI was consulted (Dr. Sellers). Pt has h/o liver cirrhosis w portal gastropathy & h/o variceal banding. During this stay there was no evidence of decompensation/SBP/ bleeding. Decreased synthetic function was demonstrated. Thrombocytopenia 2/2 liver cirrhosis showed no active bleeding. Prior to admission pt had some echymoses on BL extensor surface of upper extremities and was monitored closely. Abd US significant for CBD WNL, echogenic liver suggestive of fatty infiltration vs hepatocellular disease. LFT at baseline for pt. Recanalization of the umbilical vein compatible with previously noted liver cirrhosis on prior CT scan of the abdomen pelvis dated 11/29/2018. CT w contrast needed for questionable focal parenchymal is abnormality seen in the RIGHT hepatic lobe to r/o any underlying lesion. Pt and family educated on need for f/u w primary table keeper, Dr. Marko Wynn, on d/c. DM 2 was controlled w ISS ( Novolog). Acute on chronic kidney disease (SOPHIE on CKD 3) monitored. Baseline Cr about 1.7 in 2019 and 1.8 by d/c. There was no clear evidence of hepatorenal syndrome. Spironolactone and ramipril was held. Hypoalbuminemia noted to be 2/2 decreased hepatic synthetic function and adequate oral nutrition provided. For hypertension, nadolol continued. Home dose Nadolol is 40 mg TID. BPH was asympmatic and we cont. tamsulosin. Date of Discharge: 03/29/19 Yayo Crow MD Minutes to complete discharge: 40 Discharge Summary Reason For Visit: ACUTE KIDNEY INJURY/DEHYDRAYTION/HEPACTIC Current Active Problems SOPHIE (acute kidney injury) (Acute) Hepatic encephalopathy (Acute) Condition: Stable - Instructions Diet, Activity, Other Instructions: YOUR VISIT You came to the hospital because you were not as aware/alert as you normally are. You were given medications that made you pass stool and you improved. You were admitted for monitoring and continued care. Imaging of your head showed no new changes. Imaging of your belly found some new findings that you should follow up on with Dr. Wynn, your primary table keeper. While here you were also seen by a table keeper. Additionally, physical therapists assessed your ability to walk. It is recommended you follow the instructions below for continued care outside of hospital. You may now return home. MEDICATIONS Please continue to take your home medications as prescribed. ADDITIONAL CARE Please make an appointment to see your primary care provider, Dr. Matson, for Sunday to have blood work drawn: Complete Blood Count, Complete Metabolic Panel for Renal Function Please also make an appointment 1 week from today to see Dr. Matson. Please make an appointment with your primary table keeper, Dr. Wynn, 1 week from today. - You should walk with your ultrasound results for the doctor to review - You should schedule an abdominal CT scan with contrast because of the abnormal finding on ultrasound Your goal is to have 3-4 soft bowel movements a day Please be sure to continue testing your blood sugar, write the results down, and take your diabetes medicine as prescribed for better control of your blood sugar ADDITIONAL INFORMATION Please call 911 or come directly to the emergency room if you feel unusual headache, loss of awareness, loss of alertness, difficulty breathing, shortness of breath, chest pain, numbness, tingling, unusual bleeding or any other alarming symptoms. Referrals: Jarad Matson MD [Staff Physician] - Marko Wynn MD [Staff Physician] - Disposition: HOME - Home Medications Comprehensive Discharge Medication List: Ambulatory Orders Insulin Lispro [Humalog] 6 - 8 unit SQ AC 09/06/14 Omeprazole 20 mg PO DAILY 11/05/18 Tamsulosin HCl [Flomax] 0.4 mg PO HS 11/05/18 Rifaximin [Xifaxan -] 550 mg PO BID #60 tablet 11/08/18 Insulin (Levemir) [Levemir Vial] 25 unit SQ HS 03/28/19 Lactulose 10 gm PO HS 03/28/19 Nadolol 40 mg PO TID 03/28/19 Ramipril 5 mg PO DAILY 03/28/19 Spironolactone 25 mg PO DAILY 03/28/19 This patient is new to me today: No Emergency Visit: No Critical Care patient: No - Discharge Referral Referred to [facility] Med P.C.: No ATTENDING PHYSICIAN STATEMENT I saw and evaluated the patient. I reviewed the resident's note and discussed the case with the resident. I agree with the resident's findings and plan as documented. SUBJECTIVE: OBJECTIVE: ASSESSMENT AND PLAN:
[2019-03-31 04:24] VITALS: BMI 31.0
== END 2019-03-29 20:55 | disposition home or self-care (01) | DRG 442 ==
LOC: JER 16:30 → JERBED 19:20 → J6S 22:44
PROVIDERS: ADMIT Internal Medicine
DX: K72.90 Hepatic failure, unspecified without coma (principal); N17.9 Acute kidney failure, unspecified; K76.6 Portal hypertension; D61.818 Other pancytopenia; I13.0 Hypertensive heart and chronic kidney disease with heart failure and stage 1 through stage 4 chronic kidney disease, or unspecified chronic kidney disease; E46 Unspecified protein-calorie malnutrition; D64.9 Anemia, unspecified; F17.210 Nicotine dependence, cigarettes, uncomplicated; I44.7 Left bundle-branch block, unspecified; J44.9 Chronic obstructive pulmonary disease, unspecified; I85.00 Esophageal varices without bleeding; E11.65 Type 2 diabetes mellitus with hyperglycemia; E88.09 Other disorders of plasma-protein metabolism, not elsewhere classified; E66.9 Obesity, unspecified; Z68.31 Body mass index [BMI] 31.0-31.9, adult; I10 Essential (primary) hypertension; F10.10 Alcohol abuse, uncomplicated; N40.0 Benign prostatic hyperplasia without lower urinary tract symptoms; D69.6 Thrombocytopenia, unspecified; K31.89 Other diseases of stomach and duodenum; E11.22 Type 2 diabetes mellitus with diabetic chronic kidney disease; N18.3 Chronic kidney disease, stage 3 (moderate); I50.9 Heart failure, unspecified; K70.30 Alcoholic cirrhosis of liver without ascites; Z79.4 Long term (current) use of insulin
CPT/HCPCS: 36415; 70450-TC; 71045-TC-FY; 76705-TC; 80053; 81003; 82140; 82248; 82550; 82728; 82962; 83540; 83550; 83605; 83735; 84100; 84484; 85025; 85027; 85044; 85610; 85730; 87040; 93005; 93010; 97116-GP; 97161-GP; 99284-25; J1644; J7030

== ENCOUNTER 2019-04-02 00:33 | Inpatient (IN) | payer OTHER ==
--- NOTE | 2019-04-02 01:27 | PDOC ---
Attending Attestation - Resident Resident Name: Shantal Pino - ED Attending Attestation I have performed the following: I have examined & evaluated the patient, The case was reviewed & discussed with the resident, I agree w/resident's findings & plan - HPI HPI: 04/02/19 03:08 see resident hpi - Physicial Exam PE: 04/02/19 03:08 agree with resident exam - Critical Care Time Total Critical Care Time: 60 Critical Care Statement: The care of this patient involved high complexity decision making to prevent further life threatening deterioration of the patient 's condition and/or to evaluate & treat vital organ system(s) failure or risk of failure. - Medical Decision Making 04/02/19 03:09 74 yo male with ams, given 10mg of Versed IM [employer] by EMS reportedly due to agitation ammonia levels are markedly elevated, c/w likely hepatic encephalopathy on re eval at 0400 pt does awake to noxiuos stimuli and localizes pain, gag reflex tact plan for admit to ICU due to dec mental status 04/02/19 04:37
--- NOTE | 2019-04-02 01:32 | PDOC ---
History of Present Illness - General Chief Complaint: Altered Mental Status Stated Complaint: AMS Time Seen by Provider: 04/02/19 01:21 - History of Present Illness Initial Comments: 04/02/19 01:45 74 year old male with a PMH of IDDM, Hepatic Encephalopathy, Liver Cirrhosis, Esophageal Varices, CHF, COPD, and hypertension who was BIBEMS present with AMS. History obtained from daughter in law @ bedside. States around 7 p.m. patient began c/o being tired and asking repeatedly "Do you know who I am" which is consistent with his previous episodes of elevated Ammonia. Patient was evaluated in our ED two days previous for similar symptoms and given an additional dose of his Lactulose. As per nursing staff, patient combatative en route to the hospital and was given 10 mg of Versed. NKDA Past History - Past Medical History Allergies/Adverse Reactions: Allergies Allergy/AdvReac Type Severity Reaction Status Date / Time No Known Allergies Allergy Verified 04/02/19 01:05 Home Medications: Ambulatory Orders Insulin Lispro [Humalog] 6 - 8 unit SQ AC 09/06/14 Omeprazole 20 mg PO DAILY 11/05/18 Tamsulosin HCl [Flomax] 0.4 mg PO HS 11/05/18 Rifaximin [Xifaxan -] 550 mg PO BID #60 tablet 11/08/18 Insulin (Levemir) [Levemir Vial] 25 unit SQ HS 03/28/19 Lactulose 10 gm PO HS 03/28/19 Nadolol 40 mg PO TID 03/28/19 Ramipril 5 mg PO DAILY 03/28/19 Spironolactone 25 mg PO DAILY 03/28/19 Anemia: Yes Asthma: No Cancer: No Cardiac Disorders: No CVA: No COPD: Yes (EMPHYSEMA) CHF: Yes Dementia: No Diabetes: Yes (NIDDM) GI Disorders: Yes (ESOPHAGEAL VARICES) Disorders: Yes (ESBL IN URINE) HTN: No Hypercholesterolemia: No Liver Disease: Yes (CIRRHOSIS) Seizures: No Thyroid Disease: No - Surgical History Abdominal Surgery: Yes (ESOPHAGEAL SX, HERNIA) Appendectomy: No Cardiac Surgery: No Cholecystectomy: No Lung Surgery: No Neurologic Surgery: No Orthopedic Surgery: No - Immunization History Immunization Up to Date: Yes - Suicide/Smoking/Psychosocial Hx Smoking Status: Yes Smoking History: Current every day smoker Have you smoked in the past 12 months: Yes Number of Cigarettes Smoked Daily: 10 If you are a former smoker, when did you quit?: smokes daily Information on smoking cessation initiated: Yes 'Breaking Loose' booklet given: 11/30/18 Hx Alcohol Use: No Drug/Substance Use Hx: No Substance Use Type: Alcohol Hx Substance Use Treatment: No Review of Systems - Review of Systems Able to Perform ROS?: No (Clinical Condition) *Physical Exam - Vital Signs Last Vital Signs Temp Pulse Resp BP Pulse Ox 73 19 122/59 L 98 04/02/19 00:55 04/02/19 00:55 04/02/19 00:55 04/02/19 00:55 - Physical Exam Comments: 04/02/19 03:09 Obtunded w/intact gag reflex S1, S2, RRR Soft abdomen, distended, (+) bowel sounds 2+ DP pulse B/L Respiratory: CLTA B/L, no wheeze/crackle Extremity: 2+ DP pulse B/L, no LE edema B/L ED Treatment Course - LABORATORY CBC & Chemistry Diagram: 04/02/19 01:50 04/02/19 01:50 Medical Decision Making - Medical Decision Making 04/02/19 02:56 74 year old male with acute onset of AMS Drowsy but arousable to sternal rub s/p Versed (10 mg) given by EMS Known h/o hepatic encephalopathy w/recent visit twi days previous for AMS, Ammonia 103 Will evaluate for AMS, including Ammonia as well as Head CT as patient is unable to provide any history, ? bleed 04/02/19 03:07 Ammonia 243 As patient remains drowsy s/p Versed given by EMS, unable to tolerate PO intake , will give Lactulose enema Case d/w ICU - accepted Hospitalist microblogged 04/02/19 03:20 ICU @ bedside Patient admitted to Hospitalist service *DC/Admit/Observation/Transfer Diagnosis at time of Disposition: Hepatic encephalopathy - Discharge Dispostion Condition at time of disposition: Fair Decision to Admit order: Yes - Referrals - Patient Instructions - Post Discharge Activity
[2019-04-02 02:14] LABS: BASO % 0.7 % (0-2.0); HEMATOCRIT 29.5 % (35.4-49); HEMOGLOBIN 10.2 GM/dL (11.7-16.9); LYMPH % 30.4 % (8-40); MCH 34.1 pg (25.7-33.7); MCHC 34.4 g/dl (32.0-35.9); MEAN CELL VOLUME 99.1 fl (80-96); MEAN PLT VOLUME 9.5 fl (7.5-11.1); MONO % 9.3 % (3.8-10.2); NEUT % 56.6 % (42.8-82.8); PLATELET COUNT 86 K/MM3 (134-434); RBC 2.98 M/mm3 (4.00-5.60); WHITE BLOOD COUNT 3.6 K/mm3 (4.0-10.0)
[2019-04-02 02:40] LABS: ALBUMIN 2.6 g/dl (3.4-5.0); BILIRUBIN,TOTAL 3.3 mg/dL (0.2-1); BLOOD UREA NITROGEN 49.8 mg/dL (7-18); CALCIUM 7.3 mg/dL (8.5-10.1); CREATININE 1.9 mg/dL (0.55-1.3); TOT PROT 5.1 g/dl (6.4-8.2)
[2019-04-02] MEDS ORDERED: LACTULOSE 20 GM/30 ML UDC (FOR RECTAL USE ONLY) PR ONE ×2 (02:52→17:00)
--- NOTE | 2019-04-02 03:40 | PN ---
Teaching Attending Note Name of Resident: Ben Mcelroy ATTENDING PHYSICIAN STATEMENT I saw and evaluated the patient. I reviewed the resident's note and discussed the case with the resident. I agree with the resident's findings and plan as documented. SUBJECTIVE: 74 year old male with a PMH of IDDM, Hepatic Encephalopathy, Tobacco use. Liver Cirrhosis, Esophageal Varices, CHF, COPD, and hypertension who was BIBEMS present with AMS. History obtained from daughter in law at bedside. States around 7 p.m. patient began to complain of being tired and asking repeatedly " Do you know who I am" which is consistent with his previous episodes of elevated Ammonia. Patient was evaluated in our ED two days previous for similar symptoms and given an additional dose of his Lactulose. As per nursing staff, patient combative en route to the hospital and was given 10 mg of Versed. Review of systems cannot be obtained due to his mental status. OBJECTIVE: Somnolent but arousable Vital Signs Period Temp Pulse Resp BP Sys/Block Pulse Ox Last 24 Hr 73 19 122/59 98 HEENT: Scleral Jaundice, eye redness or discharge, PERRLA, EOMI. Normocephalic, atraumatic. External ears are normal and hearing is grossly intact. No nasal discharge. Neck: Supple, nontender. No palpable adenopathy or thyromegaly. No JVD Chest: Good effort. Clear to auscultation and percussion. Heart: Regular. No S3, rub or murmur Abdomen: Distended, soft, nontender and no HSM. No rebound or guarding. Normal bowel sounds. Ext: Peripheral pulses intact. No leg edema. Skin: Warm and dry. No petechiae, rash or ecchymosis. +Jaundice Neuro: Somnolent but readily arousable. Oriented to person and place. No asterexis or tremors. CN 2-12 grossly intact. Sensation grossly intact in all four extremities and DTR are symmetric. Psych: Appropriate mood and affect. Good insight. Current Medications Generic Name Dose Route Start Last Admin Trade Name Freq PRN Reason Stop Dose Admin Chlorhexidine Gluconate 1 applic 04/02/19 22:00 Hibiclens For Decolonization - TP HS [facility] Folic Acid 1 mg/ Thiamine HCl 1,000 mls @ 125 mls/hr 04/02/19 04:07 100 mg/ Multivitamins/Minerals IVPB 04/02/19 12:06 10 ml/ Sodium Chloride ONCE ONE Insulin Aspart 1 vial 04/02/19 07:00 Novolog Vial Sliding Scale - SQ ACHS [facility] Protocol Lactulose 300 gm 04/02/19 06:00 Cephulac (Rectal Use) AL TID [facility] Mupirocin 1 applic 04/02/19 10:00 Bactroban Ointment (For Decolonization) - NS 04/07/19 09:59 BID [facility] Nadolol 40 mg 04/02/19 06:00 Corgard - PO TID [facility] Non-Formulary Medication 20 mg 04/02/19 10:00 Omeprazole [Omeprazole] PO DAILY [facility] Rifaximin 550 mg 04/02/19 10:00 Xifaxan - PO BID [facility] Tamsulosin HCl 0.4 mg 04/02/19 22:00 Flomax - PO [facility] Home Medications Medication Instructions Recorded Insulin Lispro [Humalog] 6 - 8 unit SQ AC 09/06/14 Omeprazole 20 mg PO DAILY 11/05/18 Tamsulosin HCl [Flomax] 0.4 mg PO HS 11/05/18 Rifaximin [Xifaxan -] 550 mg PO BID #60 tablet 11/08/18 Insulin (Levemir) [Levemir Vial] 25 unit SQ HS 03/28/19 Lactulose 10 gm PO HS 03/28/19 Nadolol 40 mg PO TID 03/28/19 Ramipril 5 mg PO DAILY 03/28/19 Spironolactone 25 mg PO DAILY 03/28/19 Abnormal Lab Results 04/02/19 04/02/19 04/02/19 01:50 01:50 01:50 WBC 3.6 L RBC 2.98 L Hgb 10.2 L Hct 29.5 L D MCV 99.1 H MCH 34.1 H RDW 18.0 H Plt Count 86 L D Sodium 148 H Chloride 115 H Carbon Dioxide 18 L BUN 49.8 H Creatinine 1.9 H Random Glucose 238 H Calcium 7.3 L Total Bilirubin 3.3 H Alkaline Phosphatase 176 H Ammonia 243.30 H Total Protein 5.1 L Albumin 2.6 L ASSESSMENT AND PLAN: 1. Hepatic encephalopathy - No obvious precipitating factor aside from nonadherence with outpatient drug regimen. No obvious infection. Head CT pending. Started on lactulose per rectum and head CT and urinalysis are pending. EKG shows NSR with LBBB. Will add rifaximin 55 mg po q 12 hrs once his mentation improves and he is not at risk for aspiration. Trend LFTs and CBC. Pancytopenia likely sequelae of chronic liver disease. Monitor electrolytes and avoid further sedation. 2. Hypoalbuminemia - Possibly due to combined effects of malnutrition and inflammation associated with comorbid chronic conditions. Will ensure adequate dietary protein intake and also consult rubber goods tester water. 3. Uncontrolled DM For now, we will hold the home diabetes drugs and implement sliding scale insulin regimen. Provide comprehensive diabetes care with patient teaching and counseling about the importance of adherence to prescribed diabetes regimen, euglycemia, eye care and foot care. 4. Tobacco Use Counseled on risks associated with tobacco use. We will provide patient all the necessary assistance to facilitate smoking cessation and prescribe Nicotine patch. 5. CKD with SOPHIE - May have a component of hepatorenal syndrome. Will hydrate gently and monitor urine output. Avoid nephrotoxic agents such as NSAIDS, aminoglycosides, contrast dyes and certain Alternative medicine products. 6. Anemia/Pancytopenia - Likely multifactorial but chiefly due to chronic liver disease. Will do basic anemia work up including serial stool guaiacs, reticulocyte count and iron studies. 7. Obesity Counseled on the risks associated with obesity. Will provide patient all the necessary assistance, counseling and positive reinforcement to facilitate weight loss. Consult rubber goods tester water. 8. Hypertension - Hold outpatient antihypertensive drugs for now and restart when clinically appropriate. Revise regimen to ensure [id number] excellent BP control and supervisor counseling and guidance patient on the injurious effects of uncontrolled hypertension. Nonpharmacologic measures to control hypertension like weight loss , salt restriction and exercise discussed. Importance of adherence to treatment regimen and attainment of normotension emphasized. 9. DVT prophylaxis - Heparin 5000u sq tid. Monitor platelets daily. 10. Advance directives - Full code
[2019-04-02] MEDS ORDERED: FOLIC ACID INJECTION - 1 MG, THIAMINE HCL 100 MG, MULTIVIT INJECTION ADULT 10 ML in SOD... IVPB ONE (04:07)
--- NOTE | 2019-04-02 04:10 | CONSULT ---
Consultation: REQUESTING PROVIDER: CONSULT REQUEST: We have been asked to medically evaluate this patient for hepatic encephalopathy HISTORY OF PRESENT ILLNESS: 74M PMH IDDM, Hepatic Encephalopathy, Liver Cirrhosis, Esophageal Varices s/p banding, CHF, COPD, HTN BIBEMS with AMS. Patient obtunded at time of exam and could not provide history. Per ED note: History obtained from daughter in law @ bedside. States around 7 p.m. patient began c/o being tired and asking repeatedly "Do you know who I am" which is consistent with his previous episodes of elevated Ammonia. Patient was evaluated in our ED two days previous for similar symptoms and given an additional dose of his Lactulose. As per nursing staff, patient combative en route to the hospital and was given 10 mg of Versed. REVIEW OF SYSTEMS: Unable to obtain due to clinical condition PHYSICAL EXAMINATION Vital Signs - 24 hr 04/02/19 00:55 Pulse Rate 73 Respiratory 19 Rate Blood Pressure 122/59 L O2 Sat by Pulse 98 Oximetry (%) EXAM LIMITED DUE TO PATIENT CONDITION. GEN: NAD, obtunded. Arousable. nonverbal only stating "c'mon" HEENT: NC/AT. (+) scleral icterus. CV: Quiet, S1/S2, RRR, no m/r/g appreciated LUNG: CTAB, no wheezes, crackles, rales, rhonchi. GI: soft, ndnt, +BS, no hepatomegaly appreciated. No caput medusa. Unable to assess fluid wave or shifting dullness. EXTREMITIES: No palmar erythema. No LE edema. SKIN: pale, nonjaundiced. warm, dry, normal turgor. No spider angiomas appreciated. PSYCH: obtunded, sedated NEURO: unable to assess for asterixis Laboratory Results - last 24 hr 04/02/19 04/02/19 04/02/19 01:50 01:50 01:50 WBC 3.6 L RBC 2.98 L Hgb 10.2 L Hct 29.5 L D MCV 99.1 H MCH 34.1 H MCHC 34.4 RDW 18.0 H Plt Count 86 L D MPV 9.5 Absolute Neuts (auto) 2.0 Neutrophils % 56.6 D Lymphocytes % 30.4 D Monocytes % 9.3 Eosinophils % 3.0 Basophils % 0.7 Nucleated RBC % 0 Sodium 148 H Potassium 4.0 Chloride 115 H Carbon Dioxide 18 L Anion Gap 14 BUN 49.8 H Creatinine 1.9 H Est GFR (CKD-EPI)AfAm 39.65 Est GFR (CKD-EPI)NonAf 34.21 Random Glucose 238 H Calcium 7.3 L Total Bilirubin 3.3 H AST 32 ALT 30 Alkaline Phosphatase 176 H Ammonia 243.30 H Creatine Kinase Troponin I Total Protein 5.1 L Albumin 2.6 L 04/02/19 01:50 WBC RBC Hgb Hct MCV MCH MCHC RDW Plt Count MPV Absolute Neuts (auto) Neutrophils % Lymphocytes % Monocytes % Eosinophils % Basophils % Nucleated RBC % Sodium Potassium Chloride Carbon Dioxide Anion Gap BUN Creatinine Est GFR (CKD-EPI)AfAm Est GFR (CKD-EPI)NonAf Random Glucose Calcium Total Bilirubin AST ALT Alkaline Phosphatase Ammonia Creatine Kinase 60 Troponin I < 0.02 Total Protein Albumin Active Medications Generic Name Dose Route Start Last Admin Trade Name Freq PRN Reason Stop Dose Admin Chlorhexidine Gluconate 1 applic 04/02/19 22:00 Hibiclens For Decolonization - TP HS [facility] Folic Acid 1 mg/ Thiamine HCl 1,000 mls @ 125 mls/hr 04/02/19 04:07 100 mg/ Multivitamins/Minerals IVPB 04/02/19 12:06 10 ml/ Sodium Chloride ONCE ONE Insulin Aspart 1 vial 04/02/19 07:00 Novolog Vial Sliding Scale - SQ ACHS [facility] Protocol Mupirocin 1 applic 04/02/19 10:00 Bactroban Ointment (For Decolonization) - NS 04/07/19 09:59 BID [facility] Nadolol 40 mg 04/02/19 06:00 Corgard - PO TID [facility] Non-Formulary Medication 20 mg 04/02/19 10:00 Omeprazole [Omeprazole] PO DAILY [facility] Ramipril 5 mg 04/02/19 10:00 Altace - PO DAILY [facility] Rifaximin 550 mg 04/02/19 10:00 Xifaxan - PO BID [facility] Tamsulosin HCl 0.4 mg 04/02/19 22:00 Flomax - PO HS [facility] ASSESSMENT/PLAN: 74M PMH IDDM, Hepatic Encephalopathy, Liver Cirrhosis, Esophageal Varices s/p banding, CHF, COPD, HTN BIBEMS with AMS. Recently admitted for hepatic encephalopathy. Admitted to ICU now for hepatic encephalopathy. NEURO - Hepatic encephalopathy - sedated w/ versed 2/2 agitation/combativeness - ammonia elevated to 243 - f/u CT Head - rcvd lactulose NV in ED - c/w lactulose NV; titrate to 4-5 loose BM/day - start rifaximin - neuro/mental status checks CARD - HTN - Holding spironolactone and rapimil due to elevated BUN/Cr - Monitor BP RESP - Altered mental status 2/2 hepatic encephalopathy - Aspiration precaution GI - Hepatic encephalopathy, h/o esophageal varices s/p banding, hypoalbuminemia - GI consulted - start beta blockers as variceal ppx - monitor albumin HEME - thrombocytopenia - likely 2/2 liver cirrhosis - PLT 86 - monitor CBC - will hold heparin dvt ppx RENAL/ - Elevated BUN; BPH - tamsulosin - 04/02/19 BUN/Cr: 49.8/1.9; 03/29/19 BUN/Cr: 45.6/1.8 - Monitor BUN and Cr - Consider renal c/s FEN - NPO - Monitor lytes - daily CBC, CMP, ammonia ENDO - IDDM - AISS - FS PPX - SCD; holding chemical ppx for thrombocytopenia Visit type - Emergency Visit Emergency Visit: Yes ED Registration Date: 04/02/19 Care time: The patient presented to the Emergency Department on the above date and was hospitalized for further evaluation of their emergent condition. - New Patient This patient is new to me today: Yes Date on this admission: 04/02/19 - Critical Care Critical Care patient: Yes Total Critical Care Time (in minutes): 40 Critical Care Statement: The care of this patient involved high complexity decision making to prevent further life threatening deterioration of the patient 's condition and/or to evaluate & treat vital organ system(s) failure or risk of failure.
--- NOTE | 2019-04-02 04:32 | HP ---
<Ben Mcelroy - Last Filed: 04/07/19 02:03> CHIEF COMPLAINT: Altered mental status PCP: Dr. Shay HISTORY OF PRESENT ILLNESS: This is a 74 year old male with PMH significant for liver cirrhosis, esophageal varices (sp banding), DM, CHF, COPD, and HTN. He was previously admitted from -03/29 for altered mental status and elevated ammonia level. He was treated with lactulose 30g Q8H hours and Rifaximin 550mg PO BID with a target of 4-5 loose BM's per day. According to family members, he was displaying signs of AMA and became aggressive, and was sedated with Midazolam 10mg on his way to the ER. At the time of examination, further history was unobtainable because the patient was sedated and difficult to arouse. When aroused, he requested to be left alone. ER course was notable for: (1) Lactulose 300g ND administered (2) Head CT ordered (3) Ammonia 243 Recent Travel: PAST MEDICAL HISTORY: liver cirrhosis, esophageal varices (sp banding), DM, CHF, COPD, and HTN PAST SURGICAL HISTORY: hernia repair variceal banding (as per note from previous admission) Social History: Smokin/2 PPD Alcohol: former alcohol abuse Drugs: denies (as per note from previous admission) Family History: unknown (as per note from previous admission) Allergies No Known Allergies Allergy (Verified 04/02/19 01:05) HOME MEDICATIONS: Home Medications Medication Instructions Recorded Insulin Lispro [Humalog] 6 - 8 unit SQ AC 09/06/14 Omeprazole 20 mg PO DAILY 11/05/18 Tamsulosin HCl [Flomax] 0.4 mg PO HS 11/05/18 Rifaximin [Xifaxan -] 550 mg PO BID #60 tablet 11/08/18 Insulin (Levemir) [Levemir Vial] 25 unit SQ HS 03/28/19 Lactulose 10 gm PO HS 03/28/19 Nadolol 40 mg PO TID 03/28/19 Ramipril 5 mg PO DAILY 03/28/19 Spironolactone 25 mg PO DAILY 03/28/19 REVIEW OF SYSTEMS CONSTITUTIONAL: Absent: fever, chills, diaphoresis, generalized weakness, malaise, loss of appetite, weight change HEENT: Absent: rhinorrhea, nasal congestion, throat pain, throat swelling, difficulty swallowing, mouth swelling, ear pain, eye pain, visual changes CARDIOVASCULAR: Absent: chest pain, syncope, palpitations, irregular heart rate, lightheadedness , peripheral edema RESPIRATORY: Absent: cough, shortness of breath, dyspnea with exertion, orthopnea, wheezing, stridor, hemoptysis GASTROINTESTINAL: Absent: abdominal pain, abdominal distension, nausea, vomiting, diarrhea, constipation, melena, hematochezia GENITOURINARY: Absent: dysuria, frequency, urgency, hesitancy, hematuria, flank pain, genital pain MUSCULOSKELETAL: Absent: myalgia, arthralgia, joint swelling, back pain, neck pain SKIN: Absent: rash, itching, pallor HEMATOLOGIC/IMMUNOLOGIC: Absent: easy bleeding, easy bruising, lymphadenopathy, frequent infections ENDOCRINE: Absent: unexplained weight gain, unexplained weight loss, heat intolerance, cold intolerance NEUROLOGIC: Absent: headache, focal weakness or paresthesias, dizziness, unsteady gait, seizure, mental status changes, bladder or bowel incontinence PSYCHIATRIC: Absent: anxiety, depression, suicidal or homicidal ideation, hallucinations. PHYSICAL EXAMINATION Vital Signs - 24 hr 04/02/19 00:55 Pulse Rate 73 Respiratory 19 Rate Blood Pressure 122/59 L O2 Sat by Pulse 98 Oximetry (%) Unable to perform complete physical examination due to patient's state of sedation GENERAL: AOx0 HEAD: Normal with no signs of trauma. ABDOMEN: Distended LOWER EXTREMITIES: No pitting edema noted Laboratory Results - last 24 hr 04/02/19 04/02/19 04/02/19 01:50 01:50 01:50 WBC 3.6 L RBC 2.98 L Hgb 10.2 L Hct 29.5 L D MCV 99.1 H MCH 34.1 H MCHC 34.4 RDW 18.0 H Plt Count 86 L D MPV 9.5 Absolute Neuts (auto) 2.0 Neutrophils % 56.6 D Lymphocytes % 30.4 D Monocytes % 9.3 Eosinophils % 3.0 Basophils % 0.7 Nucleated RBC % 0 Sodium 148 H Potassium 4.0 Chloride 115 H Carbon Dioxide 18 L Anion Gap 14 BUN 49.8 H Creatinine 1.9 H Est GFR (CKD-EPI)AfAm 39.65 Est GFR (CKD-EPI)NonAf 34.21 Random Glucose 238 H Calcium 7.3 L Total Bilirubin 3.3 H AST 32 ALT 30 Alkaline Phosphatase 176 H Ammonia 243.30 H Creatine Kinase Troponin I Total Protein 5.1 L Albumin 2.6 L 04/02/19 01:50 WBC RBC Hgb Hct MCV MCH MCHC RDW Plt Count MPV Absolute Neuts (auto) Neutrophils % Lymphocytes % Monocytes % Eosinophils % Basophils % Nucleated RBC % Sodium Potassium Chloride Carbon Dioxide Anion Gap BUN Creatinine Est GFR (CKD-EPI)AfAm Est GFR (CKD-EPI)NonAf Random Glucose Calcium Total Bilirubin AST ALT Alkaline Phosphatase Ammonia Creatine Kinase 60 Troponin I < 0.02 Total Protein Albumin ASSESSMENT/PLAN: This is a 74 YO M with PMH of liver cirrhosis, esophageal varices, DM, CHF, COPD , and HTN admitted for treatment of AMS 2/2 hepatic encephalopathy. #Altered mental status - Likely due to hepatic encephalopathy - MELD-Na Score 20, compared to 25 on last admission - Lactulose 300gm ND TID ordered - Rifaximin 550mg bid to be started once he is awake - CT Head ordered to r/o neurological cause - UA pending - EKG: NSR with LBBB, unchanged from last time #SOPHIE on CKD - BUN/Cr 49.8/1.9 - Baseline 1.4-1.7 - Monitor #Hx of DM - Levemir 20 units AM, 15 units HS - Novolog ISS started - BGM ACHS #Hx of HTN - Hold home meds Ramipril and Nadolol (lactulose administration may cause volume depletion) - Monitor BP #Hypoalbuniemia - Alb 2.6 - Likely 2/2 to CLD - Continue to monitor #Pancytopneia - Likely 2/2 to CLD - Continue to monitor #FEN - Monitor electrolytes - Diabetic/Na diet #DVT PE - SCDs #Code Status - Full Code Visit type - Emergency Visit Emergency Visit: Yes ED Registration Date: 04/02/19 Care time: The patient presented to the Emergency Department on the above date and was hospitalized for further evaluation of their emergent condition. - New Patient This patient is new to me today: Yes Date on this admission: 04/07/19 - Critical Care Critical Care patient: No ATTENDING PHYSICIAN STATEMENT I saw and evaluated the patient. I reviewed the resident's note and discussed the case with the resident. I agree with the resident's findings and plan as documented. SUBJECTIVE: OBJECTIVE: ASSESSMENT AND PLAN: <Flori De La Rosa - Last Filed: 04/07/19 20:56> CHIEF COMPLAINT: PCP: HISTORY OF PRESENT ILLNESS: ER course was notable for: (1) (2) (3) Recent Travel: PAST MEDICAL HISTORY: PAST SURGICAL HISTORY: Social History: Smoking: Alcohol: Drugs: Family History: Allergies No Known Allergies Allergy (Verified 04/02/19 01:05) HOME MEDICATIONS: Home Medications Medication Instructions Recorded Omeprazole 20 mg PO DAILY 11/05/18 Tamsulosin HCl [Flomax] 0.4 mg PO HS 11/05/18 Rifaximin [Xifaxan -] 550 mg PO BID #60 tablet 11/08/18 Lactulose 10 gm PO HS 03/28/19 Spironolactone 25 mg PO DAILY 03/28/19 Insulin (Levemir) [Levemir Vial] 5 unit SQ AM #1 vial 04/05/19 Insulin Sliding Scale [Novolog 1 vial SQ ACHS units 04/05/19 Vial Sliding Scale -] Nadolol [Corgard -] 40 mg PO DAILY tablet 04/05/19 Nystatin Cream [Mycostatin Cream -] 1 applic TP BID applic 04/05/19 Polyethylene Glycol 3350 [Miralax 34 gm PO BID bottle 04/05/19 119 gm Btl -] REVIEW OF SYSTEMS CONSTITUTIONAL: Absent: fever, chills, diaphoresis, generalized weakness, malaise, loss of appetite, weight change HEENT: Absent: rhinorrhea, nasal congestion, throat pain, throat swelling, difficulty swallowing, mouth swelling, ear pain, eye pain, visual changes CARDIOVASCULAR: Absent: chest pain, syncope, palpitations, irregular heart rate, lightheadedness , peripheral edema RESPIRATORY: Absent: cough, shortness of breath, dyspnea with exertion, orthopnea, wheezing, stridor, hemoptysis GASTROINTESTINAL: Absent: abdominal pain, abdominal distension, nausea, vomiting, diarrhea, constipation, melena, hematochezia GENITOURINARY: Absent: dysuria, frequency, urgency, hesitancy, hematuria, flank pain, genital pain MUSCULOSKELETAL: Absent: myalgia, arthralgia, joint swelling, back pain, neck pain SKIN: Absent: rash, itching, pallor HEMATOLOGIC/IMMUNOLOGIC: Absent: easy bleeding, easy bruising, lymphadenopathy, frequent infections ENDOCRINE: Absent: unexplained weight gain, unexplained weight loss, heat intolerance, cold intolerance NEUROLOGIC: Absent: headache, focal weakness or paresthesias, dizziness, unsteady gait, seizure, mental status changes, bladder or bowel incontinence PSYCHIATRIC: Absent: anxiety, depression, suicidal or homicidal ideation, hallucinations. PHYSICAL EXAMINATION GENERAL: Awake, alert, and fully oriented, in no acute distress. HEAD: Normal with no signs of trauma. EYES: Pupils equal, round and reactive to light, extraocular movements intact, sclera anicteric, conjunctiva clear. No lid lag. EARS, NOSE, THROAT: Ears normal, nares patent, oropharynx clear without exudates. Moist mucous membranes. NECK: Normal range of motion, supple without lymphadenopathy, JVD, or masses. LUNGS: Breath sounds equal, clear to auscultation bilaterally. No wheezes, and no crackles. No accessory muscle use. HEART: Regular rate and rhythm, normal S1 and S2 without murmur, rub or gallop. ABDOMEN: Soft, nontender, not distended, normoactive bowel sounds, no guarding, no rebound, no masses. No hepatomegaly or splenomegaly. MUSCULOSKELETAL: Normal range of motion at all joints. No bony deformities or tenderness. No CVA tenderness. UPPER EXTREMITIES: 2+ pulses, warm, well-perfused. No cyanosis. No clubbing. No peripheral edema. LOWER EXTREMITIES: 2+ pulses, warm, well-perfused. No calf tenderness. No peripheral edema. NEUROLOGICAL: Cranial nerves II-XII intact. Normal speech. Normal gait. PSYCHIATRIC: Cooperative. Good eye contact. Appropriate mood and affect. SKIN: Warm, dry, normal turgor, no rashes or lesions noted, normal capillary refill. ASSESSMENT/PLAN: ATTENDING PHYSICIAN STATEMENT I saw and evaluated the patient. I reviewed the resident's note and discussed the case with the resident. I agree with the resident's findings and plan as documented. SUBJECTIVE: OBJECTIVE: ASSESSMENT AND PLAN:
[2019-04-02 05:42] LABS: ALLENS TEST POSITIVE
[2019-04-02 05:46] LABS: ARTERIAL BLD GAS O2 SATURATION 99.5 % (95-98); ARTERIAL BLOOD GAS BASE EXCESS -3.9 meq/l (-2-2); ARTERIAL BLOOD GAS PCO2 29.9 mmHg (35-45); ARTERIAL BLOOD GAS PO2 123 mmHg (80-100); ARTERIAL BLOOD GAS pH 7.43 (7.35-7.45); CARBOXYHEMOGLOBIN 2.2 % (0-2)
[2019-04-02] MEDS ORDERED: NADOLOL 40 MG TABLET (FP) PO SCH (06:00)
--- NOTE | 2019-04-02 09:02 | EKG ---
Test Reason : Blood Pressure : / mmHG Vent. Rate : 068 BPM Atrial Rate : 068 BPM P-R Int : 200 ms QRS Dur : 152 ms QT Int : 452 ms P-R-T Axes : 034 -18 071 degrees QTc Int : 480 ms SINUS RHYTHM WITH OCCASIONAL PREMATURE VENTRICULAR COMPLEXES LEFT BUNDLE BRANCH BLOCK ABNORMAL ECG WHEN COMPARED WITH ECG OF 27-MAR-2019 16:46, PREMATURE VENTRICULAR COMPLEXES ARE NOW PRESENT QUESTIONABLE CHANGE IN QRS AXIS Confirmed by TRAVIS LOZADA, ANGELICA ([id number]) on 04/02/2019 9:02:22 AM Referred By: Confirmed By:ANGELICA ROBLES MD
[2019-04-02] MEDS ORDERED: PATIENT'S OWN MEDICATION (NON-FORMULARY) (Omeprazole [Omeprazole] 20 MG) PO SCH (10:00)
[2019-04-02] MEDS ORDERED: RAMIPRIL 5 MG CAPSULE (FP) PO SCH (10:00)
[2019-04-02] MEDS ORDERED: MUPIROCIN 2% TOPICAL OINTMENT FOR DECOLONIZATION NS SCH (10:00)
--- NOTE | 2019-04-02 11:10 | PN ---
Progress Note (short form) - Note Progress Note: Upon re-evaluation, pt no longer lethargic, shouting at staff members. Non- compliant. Last Vital signs 04/02/19 04:24 Pulse Rate [ 68 Left] Respiratory 19 Rate Blood Pressure 124/64 [Left] O2 Sat by Pulse 96 Oximetry (%) At this time, does not require ICU, d/w primary team. Please call back as needed Thank you Laura Schmitz MD PGY-3 ICU team
[2019-04-02] MEDS ORDERED: MIDAZOLAM HCL 2 MG/2 ML SINGLE DOSE VIAL IVPUSH ONE (12:13)
[2019-04-02] MEDS ORDERED: HALOPERIDOL LACTATE 5 MG/ML IM ONE (12:30)
--- NOTE | 2019-04-02 12:49 | PN ---
Teaching Attending Note Name of Resident: Coleman Modi ATTENDING PHYSICIAN STATEMENT I saw and evaluated the patient. I reviewed the resident's note and discussed the case with the resident. I agree with the resident's findings and plan as documented. SUBJECTIVE: Pt seen and examined in the ED. Confused, agitated but hemodynamically stable, staturating well on nasal cannula. OBJECTIVE: Vital Signs Period Temp Pulse Resp BP Sys/Block Pulse Ox Last 24 Hr 68-73 19-19 122-124/59-64 96-98 Intake & Output 03/30/19 03/31/19 04/01/19 04/02/19 23:59 23:59 23:59 23:59 Weight 117.934 kg Gen: confused, agitated, jaundiced Heart: RRR Lung: decreased breath sounds at the bases Abd: softly distended, nontender Ext: no edema CBC, BMP 04/02/19 01:50 04/02/19 01:50 Active Medications Chlorhexidine Gluconate (Hibiclens For Decolonization -) 1 applic TP HS [facility] Insulin Aspart (Novolog Vial Sliding Scale -) 1 vial SQ ACHS [facility]; Protocol Lactulose (Cephulac (Rectal Use)) 200 gm NE TID [facility] Mupirocin (Bactroban Ointment (For Decolonization) -) 1 applic NS BID [facility] Stop: 04/07/19 09:59 Nadolol (Corgard -) 40 mg PO DAILY [facility] Pantoprazole Sodium (Protonix -) 20 mg PO DAILY [facility] Rifaximin (Xifaxan -) 550 mg PO BID [facility] Tamsulosin HCl (Flomax -) 0.4 mg PO HS [facility] ASSESSMENT AND PLAN: Altered Mental Status Hepatic Encephalopathy Liver Cirrhosis h/o Esophageal Varices Pancytopenia Thrombocytopenia HTN COPD CHF CKD - continue lactulose, rifaximin - aspiration precautions - O2 to keep SpO2 >90% - IVF - monitor urine output, creatinine - aspiration precautions - DVT prophylaxis - pt clinically stable at this time, does not require ICU monitoring, please call if any change in clinical condition
[2019-04-02] MEDS: LACTULOSE 20 GM/30 ML UDC (FOR RECTAL USE ONLY) PR SCH (15:49)
--- NOTE | 2019-04-02 15:57 | PN ---
Teaching Attending Note Name of Resident: Yayo Crow ATTENDING PHYSICIAN STATEMENT I saw and evaluated the patient. I reviewed the resident's note and discussed the case with the resident. I agree with the resident's findings and plan as documented. SUBJECTIVE:resting comfortable. responds "what" to all questions OBJECTIVE: Last Vital Signs Temp Pulse Resp BP Pulse Ox 66 16 139/52 L 96 04/02/19 13:24 04/02/19 13:24 04/02/19 13:24 04/02/19 04:24 General NAD, alert but confused unable to answer simple questions CV S1 S2 RRR + murmur Lungs CTA B/L no wheezing/rales/rhonchi Abdomen soft NT +distended not tympanic Extremities no pedal edema, no resting tremor can not hold arms out to assess for asterixis. ecchymosis B/L UE at various stages of healing ASSESSMENT AND PLAN: 74yo M wtih PMH CM, COPD, Hepatic encephalopathy, CHF, esophageal varices, ETOH cirrhosis presented to the ER for confusion and found to have toxic hepatic encephalopathy 1. Acute hepatic encephalopathy- due to decompensated liver cirrhosis. due to noncompliance. was noted to combative en route and in the ER and versed was given. pt is calm now. unable to take po at this time. will maintain NPO, give fleet enema with lactulose to induce BM, can start rifaxmin and lactulose by mouth once mental status improved. no signs of infection. will need to discuss importance of compliance when mental status improves. Gi on board. Elevate HOB. f/u head CT ordered in ER 2. Pancytopenia- due to cirrhosis. at baseline. no signs of bleeding 3. SOPHIE- due to dehydration. low concern for HRS at this time. will hydrate and monitor 4. ETOH abuse- CIWA 0. unknown if still drinking at this time. will need to obtain collateral information. give banana bag. monitor for withdrawal 5. esophageal varices- s/p banding. no signs of bleeding. was on nadolol Q8H?. will switch to daily 6. DM- hold oral agents. bgm and iss 7. CHF- appears dehydrated. monitor fluid status during hydration 8. DVT ppx- SCD. hold pharacomcologic in setting of thrombocytopenia 9. as per report family requesting SNF placement at this time. will d/w CM
[2019-04-02] MEDS: INSULIN SLIDING SCALE (NOVOLOG) 1 VIAL SQ SCH (16:24)
[2019-04-02] MEDS: NADOLOL 40 MG TABLET (FP) PO SCH (16:25)
[2019-04-02] MEDS: RIFAXIMIN 550 MG TABLET (UD) PO SCH ×2 (16:26→22:02)
[2019-04-02] MEDS: PANTOPRAZOLE 20 MG TABLET (FP) PO SCH (16:26)
--- NOTE | 2019-04-02 16:38 | PN ---
Physical Exam: SUBJECTIVE: 74 y/o M w PMH DM 2, cirrhosis s/p variceal banding, hepatic encephalopathy, CHF, COPD, HTN, BIBEMS w family, found to have hyperammonenmia and AMS, consistent w toxic hepatic encephalopathy. He is current refusing care and combative. Unable to currently complete interview. Will revisit later in afternoon. OBJECTIVE: Vital Signs Period Temp Pulse Resp BP Sys/Block Pulse Ox Last 24 Hr 66-73 16-19 122-139/52-64 96-98 GENERAL: The patient is awake, alert, and fully oriented, in no acute distress. HEAD: Normocephalic. Mid glabellar healed scar. EYES: KATYA, EOMI, sclera anicteric, conjunctiva clear. No ptosis. ENT: Ears normal, nares patent, oropharynx clear without exudates, moist mucous membranes. NECK: Trachea midline, full range of motion, supple. LUNGS: Breath sounds equal, clear to auscultation bilaterally, no wheezes, no crackles, no accessory muscle use. HEART: Regular rate and rhythm, S1, S2 without murmur, rub or gallop. ABDOMEN: Soft, nontender, nondistended, normoactive bowel sounds, no guarding, no rebound, no hepatosplenomegaly, no masses. EXTREMITIES: 2+ pulses, warm, well-perfused, no edema. NEUROLOGICAL: Cranial nerves II through XII grossly intact. Normal speech, gait not observed. PSYCH: Normal mood, normal affect. SKIN: Warm, dry, normal turgor, no rashes or lesions noted Laboratory Results - last 24 hr 04/02/19 04/02/19 04/02/19 01:50 01:50 01:50 WBC 3.6 L RBC 2.98 L Hgb 10.2 L Hct 29.5 L D MCV 99.1 H MCH 34.1 H MCHC 34.4 RDW 18.0 H Plt Count 86 L D MPV 9.5 Absolute Neuts (auto) 2.0 Neutrophils % 56.6 D Lymphocytes % 30.4 D Monocytes % 9.3 Eosinophils % 3.0 Basophils % 0.7 Nucleated RBC % 0 Anticoagulation Therapy Puncture Site ABG pH ABG pCO2 at Pt Temp ABG pO2 at Pt Temp ABG HCO3 ABG O2 Sat (Measured) ABG O2 Content ABG Base Excess Leonardo Test Carboxyhemoglobin Methemoglobin O2 Delivery Device Oxygen Flow Rate Vent Mode Vent Rate Mechanical Rate Pressure Support Vent Sodium 148 H Potassium 4.0 Chloride 115 H Carbon Dioxide 18 L Anion Gap 14 BUN 49.8 H Creatinine 1.9 H Est GFR (CKD-EPI)AfAm 39.65 Est GFR (CKD-EPI)NonAf 34.21 Random Glucose 238 H Calcium 7.3 L Total Bilirubin 3.3 H AST 32 ALT 30 Alkaline Phosphatase 176 H Ammonia 243.30 H Creatine Kinase Troponin I Total Protein 5.1 L Albumin 2.6 L 04/02/19 04/02/19 01:50 05:00 WBC RBC Hgb Hct MCV MCH MCHC RDW Plt Count MPV Absolute Neuts (auto) Neutrophils % Lymphocytes % Monocytes % Eosinophils % Basophils % Nucleated RBC % Anticoagulation Therapy No Result Required. Puncture Site Right brachial ABG pH 7.43 ABG pCO2 at Pt Temp 29.9 L ABG pO2 at Pt Temp 123 H ABG HCO3 19.3 L ABG O2 Sat (Measured) 99.5 H ABG O2 Content 13.4 ABG Base Excess -3.9 L Leonardo Test Positive Carboxyhemoglobin 2.2 H Methemoglobin < 1.0 O2 Delivery Device Room air Oxygen Flow Rate 21% Vent Mode No Result Required. Vent Rate No Result Required. Mechanical Rate No Result Required. Pressure Support Vent No Result Required. Sodium Potassium Chloride Carbon Dioxide Anion Gap BUN Creatinine Est GFR (CKD-EPI)AfAm Est GFR (CKD-EPI)NonAf Random Glucose Calcium Total Bilirubin AST ALT Alkaline Phosphatase Ammonia Creatine Kinase 60 Troponin I < 0.02 Total Protein Albumin Active Medications Insulin Aspart (Novolog Vial Sliding Scale -) 1 vial SQ ACHS [facility]; Protocol Last Admin: 04/02/19 16:24 Dose: 6 units Lactulose (Cephulac (Rectal Use)) 200 gm PA TID [facility] Last Admin: 04/02/19 15:49 Dose: Not Given Nadolol (Corgard -) 40 mg PO DAILY [facility] Last Admin: 04/02/19 16:25 Dose: Not Given Pantoprazole Sodium (Protonix -) 20 mg PO DAILY [facility] Last Admin: 04/02/19 16:26 Dose: Not Given Rifaximin (Xifaxan -) 550 mg PO BID [facility] Last Admin: 04/02/19 22:02 Dose: Not Given Tamsulosin HCl (Flomax -) 0.4 mg PO HS [facility] Last Admin: 04/02/19 22:03 Dose: Not Given ASSESSMENT/PLAN: 74yo M wtih PMH CM, COPD, Hepatic encephalopathy, CHF, esophageal varices, ETOH cirrhosis presented to the ER for confusion and found to have toxic hepatic encephalopathy # Acute hepatic encephalopathy - 2/2 decompensated liver cirrhosis and superimposed noncompliance. - Midazolam given en route to hospital - Pt unable to take po at this time - NPO - Fleet enema with lactulose to induce BM - PO rifaxmin and lactulose once mental status has improved - No evidence of infection - Will reach out to family regarding treatment adherence - GI consulted (DR. Sy): lactulose enemas then switch to Lactulose and Rifaximin po - Elevate HOB - Head CT: NEG # Pancytopenia - 2/2 cirrhosis; poor synthetic function - No signs of bleeding # SOPHIE - Due to dehydration - Low concern for HRS at this time - Cont. hydration # ETOH abuse - CIWA 0 - On last visit pt reports no etoh in 2 years - Unknown if still drinking etoh at this time. - Banana bag - Monitor for withdrawal # esophageal varices - s/p banding - No signs of bleeding - Nadolol Q8H at home; will switch to daily # DM - bgm - iss # CHF - Appears dehydrated - Monitor fluid status during hydration # F/E/N - NS - Cont. to monitor electrolytes - NPO # DVT ppx - SCD - hold pharacomcologic in setting of thrombocytopenia # Disposition - Family requesting SNF placement Yayo Crow MD Visit type - Emergency Visit Emergency Visit: No - New Patient This patient is new to me today: No - Critical Care Critical Care patient: No - Discharge Referral Referred to [facility] Med [facility] No ATTENDING PHYSICIAN STATEMENT I saw and evaluated the patient. I reviewed the resident's note and discussed the case with the resident. I agree with the resident's findings and plan as documented. SUBJECTIVE: OBJECTIVE: ASSESSMENT AND PLAN:
--- NOTE | 2019-04-02 16:59 | CON.GI ---
Consult Consult Specialty:: covering for Dr Ortega - History of Present Illness History of Present Illness: 74 year old male with a PMH of IDDM, Hepatic Encephalopathy, Liver Cirrhosis, Esophageal Varices, CHF, COPD, and hypertension who was BIBEMS present with AMS. History obtained from daughter in law @ bedside. States around 7 p.m. patient began c/o being tired and asking repeatedly "Do you know who I am" which is consistent with his previous episodes of elevated Ammonia. Patient was evaluated in our ED two days previous for similar symptoms and given an additional dose of his Lactulose. As per nursing staff, patient combatative en route to the hospital and was given 10 mg of Versed. - Past Medical History Cardio/Vascular: Yes: CHF, HTN. No: AFIB, CAD Pulmonary: Yes: COPD Gastrointestinal: Yes: Esophageal Varices, Other (Hepatic encephalopathy) Hepatobiliary: Yes: Cirrhosis (Alcohol induced) Renal/: Yes: BPH Infectious Disease: Yes: Other (pneumonia) Endocrine: Yes: Diabetes Mellitus - Past Surgical History Past Surgical History: Yes: Hernia Repair, Upper Endoscopy - Alcohol/Substance Use Hx Alcohol Use: No History of Substance Use: reports: None, Cocaine (ex intranasal cocaine use) - Smoking History Smoking history: Current every day smoker Have you smoked in the past 12 months: Yes Aproximately how many cigarettes per day: 10 If you are a former smoker, when did you quit?: smokes daily - Social History Usual Living Arrangement: Alone ADL: Independent Occupation: son lives upstairs History of Recent Travel: No Home Medications - Allergies Allergies/Adverse Reactions: Allergies Allergy/AdvReac Type Severity Reaction Status Date / Time No Known Allergies Allergy Verified 04/02/19 01:05 - Home Medications Home Medications: Ambulatory Orders Insulin Lispro [Humalog] 6 - 8 unit SQ AC 09/06/14 Omeprazole 20 mg PO DAILY 11/05/18 Tamsulosin HCl [Flomax] 0.4 mg PO HS 11/05/18 Rifaximin [Xifaxan -] 550 mg PO BID #60 tablet 11/08/18 Insulin (Levemir) [Levemir Vial] 25 unit SQ HS 03/28/19 Lactulose 10 gm PO HS 03/28/19 Nadolol 40 mg PO TID 03/28/19 Ramipril 5 mg PO DAILY 03/28/19 Spironolactone 25 mg PO DAILY 03/28/19 Physical Exam-GI Vital Signs: Vital Signs Temperature Pulse Rate 66 04/02/19 13:24 Respiratory Rate 16 04/02/19 13:24 Blood Pressure 139/52 L 04/02/19 13:24 O2 Sat by Pulse Oximetry (%) 96 04/02/19 04:24 Constitutional: Yes: Well Nourished, Poor Hygeine Eyes: Yes: Occular Prosthesis Cardiovascular: Yes: Regular Rate and Rhythm Respiratory: Yes: CTA Bilaterally ...Palpate: Yes: Soft. No: Firm/Rigid, Guarding, Hepatomegaly, Mass, Pulsatile Mass, Splenomegaly, Tenderness Labs: CBC, BMP 04/02/19 01:50 04/02/19 01:50 Problem List - Problems (1) Hepatic encephalopathy Assessment/Plan: patient poorly compliant to medications R> lactulose enemas then switch to Lactulose and Rifaximin po d/w Dr Barr Code(s): K72.90 - HEPATIC FAILURE, UNSPECIFIED WITHOUT COMA
[2019-04-02 17:08] VITALS: BMI 29.1
[2019-04-02] MEDS ORDERED: CHLORHEXIDINE GLUCONATE 4% CLEANSER FOR DECOLONIZATION TP SCH (22:00)
[2019-04-02] MEDS: TAMSULOSIN HCL 0.4 MG CAP PO SCH (22:03)
[2019-04-03] MEDS: LACTULOSE 20 GM/30 ML UDC (FOR RECTAL USE ONLY) PR SCH ×3 (06:40→21:56)
[2019-04-03] MEDS: INSULIN SLIDING SCALE (NOVOLOG) 1 VIAL SQ SCH ×4 (06:40→21:58)
[2019-04-03 07:36] LABS: BASO % 1.3 % (0-2.0); EOS % 4.2 % (0-4.5); HEMATOCRIT 28.5 % (35.4-49); HEMOGLOBIN 10.2 GM/dL (11.7-16.9); LYMPH % 31.7 % (8-40); MCH 35.6 pg (25.7-33.7); MCHC 35.8 g/dl (32.0-35.9); MEAN CELL VOLUME 99.5 fl (80-96); MEAN PLT VOLUME 9.3 fl (7.5-11.1); NEUT % 52.8 % (42.8-82.8); PLATELET COUNT 86 K/MM3 (134-434); RBC 2.87 M/mm3 (4.00-5.60); RDW 17.8 % (11.9-15.9); WHITE BLOOD COUNT 3.5 K/mm3 (4.0-10.0)
[2019-04-03 07:56] LABS: ALBUMIN 3.2 g/dl (3.4-5.0); BILIRUBIN,TOTAL 6.2 mg/dL (0.2-1); BLOOD UREA NITROGEN 53.5 mg/dL (7-18); CALCIUM 9.2 mg/dL (8.5-10.1); CREATININE 1.9 mg/dL (0.55-1.3); MAGNESIUM 2.5 mg/dL (1.8-2.4); PHOSPHOROUS 4.1 mg/dL (2.5-4.9); POTASSIUM 4.5 mmol/L (3.5-5.1); TOT PROT 6.3 g/dl (6.4-8.2)
--- NOTE | 2019-04-03 08:42 | PN ---
Progress Note (short form) - Note Progress Note: Resting in NAD. Awake and alert. Less combative. No acute events overnight. Intake & Output 03/31/19 04/01/19 04/02/19 04/03/19 23:59 23:59 23:59 23:59 Intake Total 0 Balance 0 Weight 227 lb 4 oz 220 lb 12.8 oz Last Vital Signs Temp Pulse Resp BP Pulse Ox 98.1 F 81 18 114/48 L 98 04/03/19 06:00 04/03/19 06:00 04/03/19 06:00 04/03/19 06:00 04/02/19 21:00 Home Medication List Medication Instructions Recorded Confirmed Type Insulin Lispro [Humalog] 6 - 8 unit SQ AC 09/06/14 04/02/19 History Omeprazole 20 mg PO DAILY 11/05/18 04/02/19 History Tamsulosin HCl [Flomax] 0.4 mg PO HS 11/05/18 04/02/19 History Insulin (Levemir) [Levemir Vial] 25 unit SQ HS 03/28/19 04/02/19 History Lactulose 10 gm PO HS 03/28/19 04/02/19 History Nadolol 40 mg PO TID 03/28/19 04/02/19 History Ramipril 5 mg PO DAILY 03/28/19 04/02/19 History Spironolactone 25 mg PO DAILY 03/28/19 04/02/19 History Active Medications Generic Name Dose Route Start Last Admin Trade Name Freq PRN Reason Stop Dose Admin Insulin Aspart 1 vial 04/02/19 07:00 04/03/19 06:40 Novolog Vial Sliding Scale - SQ 4 units ACHS MYNOR Administration Protocol Lactulose 200 gm 04/02/19 06:00 04/03/19 06:40 Cephulac (Rectal Use) HI 200 gm TID MYNOR Administration Nadolol 40 mg 04/02/19 10:00 04/02/19 16:25 Corgard - PO Not Given DAILY MYNOR Pantoprazole Sodium 20 mg 04/02/19 10:00 04/02/19 16:26 Protonix - PO Not Given DAILY MYNOR Rifaximin 550 mg 04/02/19 10:00 04/02/19 22:02 Xifaxan - PO Not Given BID MYNOR Tamsulosin HCl 0.4 mg 04/02/19 22:00 04/02/19 22:03 Flomax - PO Not Given HS MYNOR Gen: NAD, jaundiced Heart: RRR Lung: decreased breath sounds at the bases Abd: softly distended, nontender Ext: no edema Laboratory Results - last 24 hr 04/02/19 04/03/19 04/03/19 16:20 05:41 05:41 WBC 3.5 L RBC 2.87 L Hgb 10.2 L Hct 28.5 L MCV 99.5 H MCH 35.6 H MCHC 35.8 RDW 17.8 H Plt Count 86 L MPV 9.3 Absolute Neuts (auto) 1.9 Neutrophils % 52.8 Lymphocytes % 31.7 Monocytes % 10.0 Eosinophils % 4.2 Basophils % 1.3 Nucleated RBC % 0 Sodium 146 H Potassium 4.5 Chloride 112 H Carbon Dioxide 22 Anion Gap 13 BUN 53.5 H Creatinine 1.9 H Est GFR (CKD-EPI)AfAm 39.65 Est GFR (CKD-EPI)NonAf 34.21 POC Glucometer 265 Random Glucose 213 H Calcium 9.2 Phosphorus 4.1 Magnesium 2.5 H Total Bilirubin 6.2 H D AST 34 ALT 34 Alkaline Phosphatase 205 H Total Protein 6.3 L Albumin 3.2 L 04/03/19 06:36 WBC RBC Hgb Hct MCV MCH MCHC RDW Plt Count MPV Absolute Neuts (auto) Neutrophils % Lymphocytes % Monocytes % Eosinophils % Basophils % Nucleated RBC % Sodium Potassium Chloride Carbon Dioxide Anion Gap BUN Creatinine Est GFR (CKD-EPI)AfAm Est GFR (CKD-EPI)NonAf POC Glucometer 207 Random Glucose Calcium Phosphorus Magnesium Total Bilirubin AST ALT Alkaline Phosphatase Total Protein Albumin ASSESSMENT AND PLAN: COPD: Stable Resolving Altered Mental Status due to Hepatic Encephalopathy Liver Cirrhosis h/o Esophageal Varices Pancytopenia Thrombocytopenia HTN CHF CKD - continue lactulose, rifaximin - aspiration precautions - O2 as needed - PFTs as an outpatient Dr Lazaro
[2019-04-03] MEDS ORDERED: NADOLOL 20 MG TABLET (FP) ONE (09:14)
[2019-04-03] MEDS: NADOLOL 40 MG TABLET (FP) PO SCH (09:40)
[2019-04-03] MEDS: PANTOPRAZOLE 20 MG TABLET (FP) PO SCH (09:41)
[2019-04-03] MEDS: RIFAXIMIN 550 MG TABLET (UD) PO SCH ×2 (09:41→21:48)
--- NOTE | 2019-04-03 11:45 | CONSULT ---
Admitting History and Physical - Primary Care Physician PCP: Vidhi Duckworth - Admission History of Present Illness: 74 y/o M w PMH DM 2, cirrhosis s/p variceal banding, hepatic encephalopathy, CHF , COPD, HTN, BIBEMS w family, found to have hyperammonenmia and AMS, consistent w toxic hepatic encephalopathy, refusing care and combative GI imp- Hepatic encephalopathy patient poorly compliant to medications lactulose enemas then switch to Lactulose and Rifaximin po Selected Entries 04/02/19 04/02/19 04/02/19 14:30 16:30 22:00 Temperature 98 F 97.6 F 97.9 F 04/03/19 04/03/19 06:00 09:50 Temperature 98.1 F 98.6 F Laboratory Tests 04/03/19 05:41 WBC 3.5 L Alert, verbal, Oriented. Does not know why he is at [facility]. Pt noted to cough on meds with water, and coughed/vomited after full fluid lunch. History Source: Patient, Medical Record Limitations to Obtaining History: No Limitations - Past Medical History Cardiovascular: Yes: CHF, HTN. No: AFIB, CAD Pulmonary: Yes: COPD Gastrointestinal: Yes: Esophageal Varices, Other (Hepatic encephalopathy) Hepatobiliary: Yes: Cirrhosis (Alcohol induced) Renal/: Yes: BPH Infectious Disease: Yes: Other (pneumonia) Endocrine: Yes: Diabetes Mellitus - Past Surgical History Past Surgical History: Yes: Hernia Repair, Upper Endoscopy - Smoking History Smoking history: Current every day smoker Have you smoked in the past 12 months: Yes Aproximately how many cigarettes per day: 10 If you are a former smoker, when did you quit?: smokes daily - Alcohol/Substance Use Hx Alcohol Use: No History of Substance Use: reports: None, Cocaine (ex intranasal cocaine use) - Social History ADL: Independent Occupation: son lives upstairs History of Recent Travel: No History - Admission Reason For Visit: HEPATIC ENCEPHALOPATHY - Diagnostics X-ray: Report Reviewed Modified Barium Swallow: Report Reviewed (2013 (-)) - General Mental Status: Alert and Oriented, Awake and Alert, Able to Follow Commands, Forgetful Attention: Intact Ability to Follow Directions: Good Head/Neck Control: WFL - Hearing Hearing: Normal Hearing Aide: No Speech Evaluation - Communication Primary Language: KENYAN Communication: Yes: Within Normal Limits Oral Expression Ability: Yes: No Impairment - Speech Production Able to Make Needs Known: Yes: WNL Intelligibility: Yes: WNL - Speech Characteristics Voice Loudness: Normal Voice Pitch: Yes: Normal Voice Phonatory-based Quality: Yes: Normal Speech Pattern: Normal Speech Clarity: < 100% Nasal Resonance: Normal Articulation: Yes: Precise Rate of Speech: Intact - Language/Auditory Comprehension Follows: Yes: 1 Stage Simple Commands Observation: Able to respond to yes/no queries: Yes, Yes/No Confusion: No, Comprehends Conversational Speech: Yes - Language/Verbal Expression Able to Respond to Simple Queries: Yes: WNL Able to Communicate Wants and Needs: Yes: WNL Functional Communication Status: Yes: WNL - Swallow Evaluation/Bedside Assessment Current Nutritional Intake: Full Liquids ("Diabetic clears") Oral Secretions: Yes: WFL Dentition: Yes: Edentulous Facial Symmetry at Rest: Facial Droop Left Facial Symmetry on Retraction: Facial Droop Left Against Resistance Opening: Normal Against Resistance Closing: Normal Pucker Lips: Normal Smile: Normal Lingual Movement: Normal, Symmetric Lingual Speed of Movement: Normal Lingual Movement Strgth Against Opposition: Normal Lingual Movement Characteristics: Normal Velopharyngeal Movement: Normal Laryngeal Elevation: WFL Laryngeal Movement: Able to Palpate, Labored,delay initiation Rate of Intake: Impulsive Labial Seal: WFL Chewing: Impaired (Pt reports eating all reg food at home including meat. Mastication does not seem efficient.) Oral Prep Time: WFL A-P Transit: WFL Pocketing: None Timing of Swallow: Delayed Coughing/Throat Clear: Yes (thin, intermittent) Recommendations - Speech Evaluation, Impression/Plan Impression: Cough intermittently on thin liquid. nr/o pharyngeal/esophageal dysphagia - Dysphagia Impressions/Plan Swallowing Skills: Impaired Dysphagia Impressions: Ongoing Evaluation, Suspect Aspiration *Silent aspiration: cannot be R/O at bedside Dysphagia Treatment Plan: Small Bites, Chin Tuck/Down, Trial Feedings, Safe Rate , 1/2 tsp. at a time, Elevate HOB during feed Recommendations: MBS w Esophagus, Other (monitor tolerance) - Recommendations Diet Consistency: Dysphagia Minced Medication Administration: Crushed with applesauce Liquids: [place] Thick
[2019-04-03] MEDS ORDERED: FOLIC ACID INJECTION - 1 MG, THIAMINE HCL 100 MG, MULTIVIT INJECTION ADULT 10 ML in SOD... IVPB ONE (11:54)
--- NOTE | 2019-04-03 11:56 | PN ---
Teaching Attending Note Name of Resident: Yayo Crow ATTENDING PHYSICIAN STATEMENT I saw and evaluated the patient. I reviewed the resident's note and discussed the case with the resident. I agree with the resident's findings and plan as documented. SUBJECTIVE:no complaints. claims he was compliant with medications at home. denies Cp, SOB, fever, chills, N/V/C/d OBJECTIVE: Last Vital Signs Temp Pulse Resp BP Pulse Ox 98.6 F 64 20 128/85 98 04/03/19 09:50 04/03/19 09:50 04/03/19 09:50 04/03/19 09:50 04/03/19 09:00 General NAD, A&O x3, slow to respond CV S1 S2 RRR + murmur Lungs CTA B/L no wheezing/rales/rhonchi Abdomen soft NT +distended not tympanic Extremities no pedal edema, no asterixis ASSESSMENT AND PLAN: 74yo M wtih PMH CM, COPD, Hepatic encephalopathy, CHF, esophageal varices, ETOH cirrhosis presented to the ER for confusion and found to have toxic hepatic encephalopathy 1. Acute hepatic encephalopathy- due to decompensated liver cirrhosis. due to noncompliance. responded well to lactulose enema. can cont with po and rifaxmin. monitor for 4-5 BM daily. will check swallow eval now mental status improved. Gi on board. Elevate HOB. f/u head CT ordered in ER 2. Pancytopenia- due to cirrhosis. at baseline. no signs of bleeding 3. SOPHIE- due to dehydration. low concern for HRS at this time. Cr stable. will hydrate and monitor 4. ETOH abuse- CIWA 0. unknown if still drinking at this time. will need to obtain collateral information. give banana bag. monitor for withdrawal 5. stage IV pressure ulcer seen by RN- frequent re-positioning. alleven 6. esophageal varices- s/p banding. no signs of bleeding. cont nadolol 7. DM- hold oral agents. bgm and iss 8. CHF- appears dehydrated. monitor fluid status during hydration 9. DVT ppx- SCD. hold pharacomcologic in setting of thrombocytopenia 10. PT eval. will likely benefit from HARRIET
--- NOTE | 2019-04-03 17:14 | PN ---
Physical Exam: SUBJECTIVE: 74 y/o M w PMH DM 2, cirrhosis s/p variceal banding, hepatic encephalopathy, CHF, COPD, HTN, BIBEMS w family, found to have hyperammonenmia and AMS, consistent w toxic hepatic encephalopathy. He has currently had much improvement after lactulose, rifaximin, and is s/p 2 BM. Pt appears back to baseline and is in agreement w medical plan. He denies abdominal pain and NVDCF. OBJECTIVE: Vital Signs Period Temp Pulse Resp BP Sys/Block Pulse Ox Last 24 Hr 97.9 F-98.6 F 64-81 18-20 114-146/48-85 98-98 GENERAL: The patient is awake, alert, and fully oriented, in no acute distress. Baseline speech is slurred. HEAD: Normocephalic. Mid glabbelar scars; healed. EYES: KATYA, EOMI, sclera anicteric, conjunctiva clear. No ptosis. ENT: Ears normal, nares patent, oropharynx clear without exudates, moist mucous membranes. NECK: Trachea midline, full range of motion, supple. LUNGS: Breath sounds equal, clear to auscultation bilaterally, no wheezes, no crackles, no accessory muscle use. HEART: Regular rate and rhythm, S1, S2 without murmur, rub or gallop. ABDOMEN: Soft, nontender, nondistended, normoactive bowel sounds, no guarding, no rebound, no hepatosplenomegaly, no masses. EXTREMITIES: 2+ pulses, warm, well-perfused, no edema. NEUROLOGICAL: Cranial nerves II through XII grossly intact. Normal speech, gait not observed. PSYCH: Normal mood, normal affect. SKIN: Warm, dry, normal turgor, no rashes or lesions noted Laboratory Results - last 24 hr 04/03/19 04/03/19 04/03/19 05:41 05:41 06:36 WBC 3.5 L RBC 2.87 L Hgb 10.2 L Hct 28.5 L MCV 99.5 H MCH 35.6 H MCHC 35.8 RDW 17.8 H Plt Count 86 L MPV 9.3 Absolute Neuts (auto) 1.9 Neutrophils % 52.8 Lymphocytes % 31.7 Monocytes % 10.0 Eosinophils % 4.2 Basophils % 1.3 Nucleated RBC % 0 Sodium 146 H Potassium 4.5 Chloride 112 H Carbon Dioxide 22 Anion Gap 13 BUN 53.5 H Creatinine 1.9 H Est GFR (CKD-EPI)AfAm 39.65 Est GFR (CKD-EPI)NonAf 34.21 POC Glucometer 207 Random Glucose 213 H Calcium 9.2 Phosphorus 4.1 Magnesium 2.5 H Total Bilirubin 6.2 H D AST 34 ALT 34 Alkaline Phosphatase 205 H Total Protein 6.3 L Albumin 3.2 L 04/03/19 04/03/19 11:25 16:07 WBC RBC Hgb Hct MCV MCH MCHC RDW Plt Count MPV Absolute Neuts (auto) Neutrophils % Lymphocytes % Monocytes % Eosinophils % Basophils % Nucleated RBC % Sodium Potassium Chloride Carbon Dioxide Anion Gap BUN Creatinine Est GFR (CKD-EPI)AfAm Est GFR (CKD-EPI)NonAf POC Glucometer 257 344 Random Glucose Calcium Phosphorus Magnesium Total Bilirubin AST ALT Alkaline Phosphatase Total Protein Albumin Active Medications Insulin Aspart (Novolog Vial Sliding Scale -) 1 vial SQ [facility]; Protocol Last Admin: 04/04/19 06:54 Dose: 4 unit Lactulose (Cephulac (Rectal Use)) 200 gm IA TID [facility] Last Admin: 04/04/19 06:17 Dose: Not Given Nadolol (Corgard -) 40 mg PO DAILY [facility] Pantoprazole Sodium (Protonix -) 20 mg PO DAILY [facility] Polyethylene Glycol (Miralax (For Daily Use) -) 34 gm PO BID [facility] Last Admin: 04/03/19 21:54 Dose: 34 gm Rifaximin (Xifaxan -) 550 mg PO BID [facility] Tamsulosin HCl (Flomax -) 0.4 mg PO [facility] ASSESSMENT/PLAN: 74 y/o M wtih PMH CM, COPD, hepatic encephalopathy, CHF, esophageal varices, ETOH cirrhosis presented to the ER for confusion and found to have toxic hepatic encephalopathy # Acute hepatic encephalopathy - 2/2 decompensated liver cirrhosis and superimposed noncompliance. - Mental status has improved sp PO rifaxmin and lactulose once - No evidence of infection - GI consulted (DR. Sy): Miralax 34 gm BID instead of lactulose, continue Xifaxan - Pulm consulted (Dr. Lazaro): aspiration precautions, O2 as needed, PFTs as an outpatient - Speech/swallow: nectar liq., minced diet - Elevate HOB - Head CT: NEG # Pancytopenia - 2/2 cirrhosis; poor synthetic function - No signs of bleeding # SOPHIE - Due to dehydration - Low concern for HRS at this time - Cont. hydration # ETOH abuse - CIWA 0 - On last visit pt reports no etoh in 2 years - Unknown if still drinking etoh at this time. - Banana bag provided - Monitor for withdrawal # esophageal varices - s/p banding - No signs of bleeding - Nadolol Q8H at home; will switch to daily # DM - bgm - iss # CHF - Appears dehydrated - Monitor fluid status during hydration # F/E/N - NS - Cont. to monitor electrolytes - NPO # DVT ppx - SCD - hold pharacomcologic in setting of thrombocytopenia # Disposition - Family requesting SNF placement Yayo Crow MD Visit type - Emergency Visit Emergency Visit: No - New Patient This patient is new to me today: No - Critical Care Critical Care patient: No - Discharge Referral Referred to [facility] Med P.C.: No ATTENDING PHYSICIAN STATEMENT I saw and evaluated the patient. I reviewed the resident's note and discussed the case with the resident. I agree with the resident's findings and plan as documented. SUBJECTIVE: OBJECTIVE: ASSESSMENT AND PLAN:
--- NOTE | 2019-04-03 17:15 | PN.GI ---
GI Progress Note Subjective: more alert awake alert and oriented, refused to take lactulose - Objective Vital Signs: Vital Signs Temperature 98.3 F 04/03/19 14:00 Pulse Rate 72 04/03/19 14:00 Respiratory Rate 20 04/03/19 14:00 Blood Pressure 118/60 04/03/19 14:00 O2 Sat by Pulse Oximetry (%) 98 04/03/19 09:00 Constitutional: Well Nourished Eyes: Yes: Conjunctiva Clear HENT: Yes: Atraumatic Neck: Yes: Trachea Midline Cardiovascular: Yes: Regular Rate and Rhythm Respiratory: Yes: CTA Bilaterally ...Palpate: Yes: Soft. No: Firm/Rigid, Guarding, Hepatomegaly, Mass, Pulsatile Mass, Splenomegaly, Tenderness Labs: CBC, BMP 04/03/19 05:41 04/03/19 05:41 Problem List - Problems (1) Hepatic encephalopathy Assessment/Plan: resolving R> Miralax 34 grams bid instead of lactulose continue Xifaxan Code(s): K72.90 - HEPATIC FAILURE, UNSPECIFIED WITHOUT COMA
[2019-04-03] MEDS: TAMSULOSIN HCL 0.4 MG CAP PO SCH (21:48)
[2019-04-03] MEDS: POLYETHYLENE GLYCOL 3350 119 GM BTL PO SCH (21:54)
[2019-04-04] MEDS: LACTULOSE 20 GM/30 ML UDC (FOR RECTAL USE ONLY) PR SCH ×3 (06:17→16:25)
[2019-04-04] MEDS: INSULIN SLIDING SCALE (NOVOLOG) 1 VIAL SQ SCH ×4 (06:54→22:46)
[2019-04-04 07:08] LABS: BASO % 1.2 % (0-2.0); EOS % 4.4 % (0-4.5); HEMATOCRIT 25.7 % (35.4-49); HEMOGLOBIN 9.1 GM/dL (11.7-16.9); MCH 35.1 pg (25.7-33.7); MCHC 35.6 g/dl (32.0-35.9); MEAN CELL VOLUME 98.7 fl (80-96); MONO % 10.9 % (3.8-10.2); NEUT % 48.5 % (42.8-82.8); PLATELET COUNT 77 K/MM3 (134-434); RDW 17.2 % (11.9-15.9); WHITE BLOOD COUNT 3.7 K/mm3 (4.0-10.0)
[2019-04-04 07:21] LABS: MAGNESIUM 2.4 mg/dL (1.8-2.4); PHOSPHOROUS 3.2 mg/dL (2.5-4.9)
[2019-04-04] MEDS ORDERED: NADOLOL 20 MG TABLET (FP) ONE (08:55)
[2019-04-04] MEDS: POLYETHYLENE GLYCOL 3350 119 GM BTL PO SCH ×2 (09:23→22:45)
[2019-04-04] MEDS: NADOLOL 40 MG TABLET (FP) PO SCH (09:23)
[2019-04-04] MEDS: PANTOPRAZOLE 20 MG TABLET (FP) PO SCH (09:24)
[2019-04-04] MEDS: RIFAXIMIN 550 MG TABLET (UD) PO SCH ×2 (09:24→22:46)
[2019-04-04] MEDS: NYSTATIN 100,000 UNIT/GM TOPICAL CREAM 15 GM TUBE TP SCH ×2 (11:22→22:46)
[2019-04-04] MEDS ORDERED: SODIUM CHLORIDE 250 ML IV STA (11:40)
--- NOTE | 2019-04-04 11:48 | PN ---
Teaching Attending Note Name of Resident: Yayo Crow ATTENDING PHYSICIAN STATEMENT I saw and evaluated the patient. I reviewed the resident's note and discussed the case with the resident. I agree with the resident's findings and plan as documented. SUBJECTIVE: asymptomatic. stating hes hungry. has had multiple BM over the past 24H. denies CP, SOB, fever, chills, N/V OBJECTIVE: Last Vital Signs Temp Pulse Resp BP Pulse Ox 98.4 F 75 20 108/46 L 97 04/04/19 08:00 04/04/19 08:00 04/04/19 09:00 04/04/19 08:00 04/04/19 09:00 General NAD, A&O x3, CV S1 S2 RRR + murmur Lungs CTA B/L no wheezing/rales/rhonchi Abdomen soft NT +distended not tympanic Extremities no pedal edema, no asterixis ASSESSMENT AND PLAN: 74yo M wtih PMH CM, COPD, Hepatic encephalopathy, CHF, esophageal varices, ETOH cirrhosis presented to the ER for confusion and found to have toxic hepatic encephalopathy 1. Acute hepatic encephalopathy- due to decompensated liver cirrhosis. due to noncompliance. at baseline. cont current regimen. will need to ensure medications are optimized for cirrhosis. Gi on board. Elevate HOB. f/u head CT ordered in ER 2. Pancytopenia- due to cirrhosis. at baseline. no signs of bleeding 3. SOPHIE- due to dehydration. low concern for HRS at this time. Cr stable. will hydrate and monitor 4. ETOH abuse- states last drink was 5. stage IV pressure ulcer seen by RN- frequent re-positioning. alleven 6. esophageal varices- s/p banding. no signs of bleeding. cont nadolol 7. DM- hold oral agents. bgm and iss 8. CHF- appears dehydrated. monitor fluid status during hydration 9. DVT ppx- SCD. hold pharacomcologic in setting of thrombocytopenia 10. PT eval. will likely benefit from HARRIET. CM notified
[2019-04-04] MEDS ORDERED: PT OWN MED DRAWER 7, Y5N ONE (12:55)
--- NOTE | 2019-04-04 16:51 | PN ---
Physical Exam: SUBJECTIVE: Patient seen and examined OBJECTIVE: Vital Signs Period Temp Pulse Resp BP Sys/Block Pulse Ox Last 24 Hr 97.6 F-98.4 F 48-82 18-20 98-140/43-59 97-98 GENERAL: The patient is awake, alert, and fully oriented, in no acute distress. HEAD: Normal with no signs of trauma. EYES: PERRL, extraocular movements intact, sclera anicteric, conjunctiva clear. No ptosis. ENT: Ears normal, nares patent, oropharynx clear without exudates, moist mucous membranes. NECK: Trachea midline, full range of motion, supple. LUNGS: Breath sounds equal, clear to auscultation bilaterally, no wheezes, no crackles, no accessory muscle use. HEART: Regular rate and rhythm, S1, S2 without murmur, rub or gallop. ABDOMEN: Soft, nontender, nondistended, normoactive bowel sounds, no guarding, no rebound, no hepatosplenomegaly, no masses. EXTREMITIES: 2+ pulses, warm, well-perfused, no edema. NEUROLOGICAL: Cranial nerves II through XII grossly intact. Normal speech, gait not observed. PSYCH: Normal mood, normal affect. SKIN: Warm, dry, normal turgor, no rashes or lesions noted Laboratory Results - last 24 hr 04/03/19 04/04/19 04/04/19 21:48 05:39 05:39 WBC 3.7 L RBC 2.60 L Hgb 9.1 L Hct 25.7 L MCV 98.7 H MCH 35.1 H MCHC 35.6 RDW 17.2 H Plt Count 77 L MPV 9.0 Absolute Neuts (auto) 1.8 Neutrophils % 48.5 Lymphocytes % 35.0 Monocytes % 10.9 H Eosinophils % 4.4 Basophils % 1.2 Nucleated RBC % 0 POC Glucometer 270 Phosphorus 3.2 Magnesium 2.4 04/04/19 04/04/19 04/04/19 05:55 11:19 16:16 WBC RBC Hgb Hct MCV MCH MCHC RDW Plt Count MPV Absolute Neuts (auto) Neutrophils % Lymphocytes % Monocytes % Eosinophils % Basophils % Nucleated RBC % POC Glucometer 247 376 332 Phosphorus Magnesium Active [employer] Insulin Aspart (Novolog Vial Sliding Scale -) [address] [facility]; Protocol Last Admin: 04/05/19 10:53 Dose: 10 unit Nadolol (Corgard -) 40 mg PO DAILY [facility] Last Admin: 04/05/19 10:20 Dose: 40 mg Nystatin (Mycostatin Cream -) 1 applic TP BID [facility] Last Admin: 04/05/19 09:16 Dose: 1 applic Pantoprazole Sodium (Protonix -) 20 mg PO DAILY [facility] Last Admin: 04/05/19 09:16 Dose: 20 mg Polyethylene Glycol (Miralax (For Daily Use) -) 34 gm PO BID [facility] Last Admin: 04/05/19 10:53 Dose: 34 gm Rifaximin (Xifaxan -) 550 mg PO BID [facility] Last Admin: 04/05/19 09:16 Dose: 550 mg Spironolactone (Aldactone -) 25 mg PO DAILY [facility] Last Admin: 04/05/19 10:19 Dose: 25 mg Tamsulosin HCl (Flomax -) 0.4 mg PO HS [facility] Last Admin: 04/04/19 22:45 Dose: 0.4 mg ASSESSMENT/PLAN: 74 y/o M wtih PMH CM, COPD, hepatic encephalopathy, CHF, esophageal varices, ETOH cirrhosis presented to the ER for confusion and found to have toxic hepatic encephalopathy. Pt responded well to rifaximin and lactulose AL and transitioned well to PO. GI recommendation for miralax BID instated today. # Acute hepatic encephalopathy - 2/2 decompensated liver cirrhosis and superimposed noncompliance. - Mental status has improved sp PO rifaxmin and lactulose once, now on 35 mg Miralax BID and rifaximin PO - Plan for DC to [facility] when poss. - PT: 75 feet w cane, good family support, can benefit from RW. - GI consulted (DR. Sy): Miralax 34 gm BID instead of lactulose, continue Xifaxan - Pulm consulted (Dr. Lazaro): aspiration precautions, O2 as needed, PFTs as an outpatient - Speech/swallow: nectar liq., minced diet - Elevate HOB - Head CT: NEG # Pancytopenia - 2/2 cirrhosis; poor synthetic function - No signs of bleeding # SOPHIE - Due to dehydration - Low concern for HRS at this time - Cont. hydration # ETOH abuse - CIWA 0 - On last visit pt reports no etoh in 2 years - Unknown if still drinking etoh at this time. - Banana bag provided - Monitor for withdrawal # esophageal varices - s/p banding - No signs of bleeding - Nadolol Q8H at home; will switch to daily # DM - bgm - iss # CHF - Appears well hydrated today - Monitor fluid status during hydration # F/E/N - No standing fluids. 1 episode of bp dropping which responded well to small bolus of 250cc NS. Encouraged pt to increase PO hydration. - Cont. to monitor electrolytes - NPO # DVT ppx - SCD - hold pharacomcologic in setting of thrombocytopenia # Disposition - Family requesting SNF placement Yayo Crow MD Visit type - Emergency Visit Emergency Visit: No - New Patient This patient is new to me today: No - Critical Care Critical Care patient: No - Discharge Referral Referred to [facility] Med P.C.: No ATTENDING PHYSICIAN STATEMENT I saw and evaluated the patient. I reviewed the resident's note and discussed the case with the resident. I agree with the resident's findings and plan as documented. SUBJECTIVE: OBJECTIVE: ASSESSMENT AND PLAN:
[2019-04-04] MEDS ORDERED: TAMSULOSIN HCL 0.4 MG CAP PO SCH (22:00)
[2019-04-05] MEDS: INSULIN SLIDING SCALE (NOVOLOG) 1 VIAL SQ SCH ×2 (06:59→10:53)
[2019-04-05 08:30] LABS: BASO % 0.5 % (0-2.0); EOS % 3.7 % (0-4.5); HEMATOCRIT 23.9 % (35.4-49); HEMOGLOBIN 8.5 GM/dL (11.7-16.9); LYMPH % 23.2 % (8-40); MCH 35.2 pg (25.7-33.7); MCHC 35.8 g/dl (32.0-35.9); MEAN CELL VOLUME 98.6 fl (80-96); MEAN PLT VOLUME 8.8 fl (7.5-11.1); MONO % 8.3 % (3.8-10.2); NEUT % 64.3 % (42.8-82.8); PLATELET COUNT 79 K/MM3 (134-434); RBC 2.42 M/mm3 (4.00-5.60); RDW 17.3 % (11.9-15.9); WHITE BLOOD COUNT 5.2 K/mm3 (4.0-10.0)
[2019-04-05] MEDS: SPIRONOLACTONE 25 MG TABLET (FP) PO SCH ×2 (08:31→10:19)
[2019-04-05 08:50] LABS: MAGNESIUM 2.1 mg/dL (1.8-2.4); PHOSPHOROUS 2.4 mg/dL (2.5-4.9)
[2019-04-05] MEDS ORDERED: NADOLOL 20 MG TABLET (FP) ONE (09:14)
[2019-04-05] MEDS: RIFAXIMIN 550 MG TABLET (UD) PO SCH (09:16)
[2019-04-05] MEDS: PANTOPRAZOLE 20 MG TABLET (FP) PO SCH (09:16)
[2019-04-05] MEDS: NYSTATIN 100,000 UNIT/GM TOPICAL CREAM 15 GM TUBE TP SCH (09:16)
[2019-04-05 09:48] VITALS: TEMP 98.1
--- NOTE | 2019-04-05 10:15 | PN ---
Progress Note (short form) - Note Progress Note: asymptomatic. states he is tolerating diet. no complaints. denie Cp, SOB, fever , chills, N/V/C. having 2-3 BM daily Current Medications Generic Name Dose Route Start Last Admin Trade Name Alfredo PRN Reason Stop Dose Admin Insulin Aspart 1 vial 04/04/19 07:00 04/05/19 06:59 Novolog Vial Sliding Scale - SQ 2 unit ACHS MYNOR Administration Protocol Nadolol 40 mg 04/04/19 10:00 04/04/19 09:23 Corgard - PO 40 mg DAILY MYNOR Administration Nystatin 1 applic 04/04/19 11:15 04/05/19 09:16 Mycostatin Cream - TP 1 applic BID MYNOR Administration Pantoprazole Sodium 20 mg 04/04/19 10:00 04/05/19 09:16 Protonix - PO 20 mg DAILY MYNOR Administration Polyethylene Glycol 34 gm 04/03/19 22:00 04/04/19 22:45 Miralax (For Daily Use) - PO 34 gm BID MYNOR Administration Rifaximin 550 mg 04/04/19 10:00 04/05/19 09:16 Xifaxan - PO 550 mg BID MYNOR Administration Spironolactone 25 mg 04/04/19 16:00 04/05/19 08:31 Aldactone - PO Not Given DAILY MYNOR Tamsulosin HCl 0.4 mg 04/04/19 22:00 04/04/19 22:45 Flomax - PO 0.4 mg HS MYNOR Administration Last Vital Signs Temp Pulse Resp BP Pulse Ox 98.1 F 60 20 92/45 L 97 04/05/19 09:47 04/05/19 09:47 04/05/19 09:47 04/05/19 09:47 04/04/19 09:00 General NAD, A&O x3, CV S1 S2 RRR + murmur Lungs CTA B/L no wheezing/rales/rhonchi Abdomen soft NT/ND not tympanic Extremities no pedal edema, no asterixis CBCD WBC 5.2 K/mm3 (4.0-10.0) 04/05/19 07:18 RBC 2.42 M/mm3 (4.00-5.60) L 04/05/19 07:18 Hgb 8.5 GM/dL (11.7-16.9) L 04/05/19 07:18 Hct 23.9 % (35.4-49) L 04/05/19 07:18 MCV 98.6 fl (80-96) H 04/05/19 07:18 MCHC 35.8 g/dl (32.0-35.9) 04/05/19 07:18 RDW 17.3 % (11.9-15.9) H 04/05/19 07:18 Plt Count 79 K/MM3 (134-434) L 04/05/19 07:18 MPV 8.8 fl (7.5-11.1) 04/05/19 07:18 ASSESSMENT AND PLAN: 74yo M wtih PMH CM, COPD, Hepatic encephalopathy, CHF, esophageal varices, ETOH cirrhosis presented to the ER for confusion and found to have toxic hepatic encephalopathy 1. Acute hepatic encephalopathy- due to decompensated liver cirrhosis. due to noncompliance. at baseline. cont current regimen. will need to ensure medications are optimized for cirrhosis. titrate meds to 3-4BM daily. on soft diet with well chopped meat. thin liquids. Gi on board. [facility] HOB. f/u head CT ordered in ER 2. Pancytopenia- due to cirrhosis. at baseline. no signs of bleeding 3. SOPHIE- due to dehydration. low concern for HRS at this time. Cr stable. will hydrate and monitor 4. ETOH abuse- states last drink was over a year ago 5. esophageal varices- s/p banding. no signs of bleeding. cont nadolol 6. DM- hold oral agents. bgm and iss. will need re-start levemir and titrate at rehab center 7. CHF- appears dehydrated. monitor fluid status during hydration 8. DVT ppx- SCD. hold pharacomcologic in setting of thrombocytopenia 9.d/c to [facility] today for [facility] Visit type - Emergency Visit Emergency Visit: Yes ED Registration Date: 04/02/19 Care time: The patient presented to the Emergency Department on the above date and was hospitalized for further evaluation of their emergent condition. - New Patient This patient is new to me today: No - Critical Care Critical Care patient: No - Discharge Referral Referred to [facility] Med P.C.: No
[2019-04-05 10:18] VITALS: BP 149/66; PULSE 118
[2019-04-05] MEDS: NADOLOL 40 MG TABLET (FP) PO SCH (10:20)
[2019-04-05] MEDS ORDERED: INSULIN (LEVEMIR) 100 UNITS/ML UNITS SQ ONE (10:39)
[2019-04-05] MEDS: POLYETHYLENE GLYCOL 3350 119 GM BTL PO SCH (10:53)
--- NOTE | 2019-04-06 11:59 | DS ---
Physical Exam: SUBJECTIVE: Patient seen and examined OBJECTIVE: PHYSICAL EXAM GENERAL: The patient is awake, alert, and fully oriented, in no acute distress. HEAD: Normal with no signs of trauma. EYES: PERRL, extraocular movements intact, sclera anicteric, conjunctiva clear. ENT: Ears normal, nares patent, oropharynx clear without exudates, moist mucous membranes. NECK: Trachea midline, full range of motion, supple. LUNGS: Breath sounds equal, clear to auscultation bilaterally, no wheezes, no crackles, no accessory muscle use. HEART: Regular rate and rhythm, S1, S2 without murmur, rub or gallop. ABDOMEN: Soft, nontender, nondistended, normoactive bowel sounds, no guarding, no rebound, no hepatosplenomegaly, no masses. EXTREMITIES: 2+ pulses, warm, well-perfused, no edema. NEUROLOGICAL: Cranial nerves II through XII grossly intact. Normal speech, gait not observed. PSYCH: Normal mood, normal affect. SKIN: Warm, dry, normal turgor, no rashes or lesions noted. LABS HOSPITAL COURSE: Date of Admission:04/02/19 Date of Discharge: 04/06/19 Discharge Summary Reason For Visit: HEPATIC ENCEPHALOPATHY Condition: Stable - Instructions Diet, Activity, Other Instructions: Hospital course: You were admitted to the hospital as you were not as responsive as you normally are. You were given medications that made you pass stool. Your mental status has improved. You are being discharged to [facility] long-term facility. Continue with a soft diet but have your meats fully chopped and thin liquids. Eat slowly to prevent choking on your foods. Make sure you are sitting in a seated, and fully upright position when eating Medication recommendations: Continue taking your home medications as directed. Refer to medication list for details We have reinstated your Spironolactone 25mg daily Take Miralax 34mg twice a day to ensure you have 3-4 soft bowel movements daily. Levemir 5 units in the morning. this will likely require adjustment as your appetite improves. Follow-up recommendations: Follow up with your primary care physician within one- two days of discharge. Follow up with [facility] within one- two days after discharge. A referral to Dr. Wynn has been provided. Please call 911 or come directly to the emergency room if you feel unusual headache, loss of awareness, loss of alertness, difficulty breathing, shortness of breath, chest pain, numbness, tingling, unusual bleeding or any other alarming symptoms. insulin sliding scale glucose # units of insulin <200 0 201-250 2 251-300 4 301-350 6 351- 400 8 >401 10 and notify your doctor Referrals: Diamond Shay MD [Non Staff, Medical] - Marko Wynn MD [Staff Physician] - Disposition: LONGTERM FACILITY - Home Medications Comprehensive Discharge Medication List: Ambulatory Orders Omeprazole 20 mg PO DAILY 11/05/18 Tamsulosin HCl [Flomax] 0.4 mg PO HS 11/05/18 Rifaximin [Xifaxan -] 550 mg PO BID #60 tablet 11/08/18 Lactulose 10 gm PO HS 03/28/19 Spironolactone 25 mg PO DAILY 03/28/19 Insulin (Levemir) [Levemir Vial] 5 unit SQ AM #1 vial 04/05/19 Insulin Sliding Scale [Novolog Vial Sliding Scale -] 1 vial SQ ACHS units 04/05 Nadolol [Corgard -] 40 mg PO DAILY tablet 04/05/19 Nystatin Cream [Mycostatin Cream -] 1 applic TP BID applic 04/05/19 Polyethylene Glycol 3350 [Miralax 119 gm Btl -] 34 gm PO BID bottle 04/05/19 - Discharge Referral Referred to [facility] Med P.C.: No ATTENDING PHYSICIAN STATEMENT I saw and evaluated the patient. I reviewed the resident's note and discussed the case with the resident. I agree with the resident's findings and plan as documented. SUBJECTIVE: OBJECTIVE: ASSESSMENT AND PLAN:
== END 2019-04-05 13:35 | DRG 432 ==
LOC: JER 00:33 → JERBED 03:38 → J8W 14:10
PROVIDERS: ADMIT Internal Medicine; ATTEND Internal Medicine
DX: K70.30 Alcoholic cirrhosis of liver without ascites (principal); K72.00 Acute and subacute hepatic failure without coma; N17.9 Acute kidney failure, unspecified; I13.0 Hypertensive heart and chronic kidney disease with heart failure and stage 1 through stage 4 chronic kidney disease, or unspecified chronic kidney disease; D61.818 Other pancytopenia; J44.9 Chronic obstructive pulmonary disease, unspecified; I50.9 Heart failure, unspecified; E88.09 Other disorders of plasma-protein metabolism, not elsewhere classified; E11.65 Type 2 diabetes mellitus with hyperglycemia; E66.9 Obesity, unspecified; E11.22 Type 2 diabetes mellitus with diabetic chronic kidney disease; N18.9 Chronic kidney disease, unspecified; D64.9 Anemia, unspecified; Z79.4 Long term (current) use of insulin; E86.0 Dehydration; Z91.14 Patient's other noncompliance with medication regimen; F10.10 Alcohol abuse, uncomplicated; Z68.29 Body mass index [BMI] 29.0-29.9, adult
CPT/HCPCS: 36415; 36600; 71045-TC-FY; 74230-TC-FY; 80053; 82140; 82375; 82550; 82803; 82962; 83050; 83735; 84100; 84484; 85025; 85027; 92611-GN; 93005; 93010; 97116-GP; 97161-GP; 99285-25; J7030

== ENCOUNTER 2019-05-27 10:23 | Inpatient (IN) | payer OTHER ==
[2019-05-27 11:17] LABS: VENOUS PC02 51.9 mmHg (38-52); VENOUS PH 7.32 (7.31-7.41)
[2019-05-27 11:18] LABS: BASO % 0.8 % (0-2.0); HEMATOCRIT 28.1 % (35.4-49); HEMOGLOBIN 9.4 GM/dL (11.7-16.9); LYMPH % 20.8 % (8-40); MCH 34.4 pg (25.7-33.7); MCHC 33.3 g/dl (32.0-35.9); MEAN CELL VOLUME 103.4 fl (80-96); MEAN PLT VOLUME 8.4 fl (7.5-11.1); MONO % 12.9 % (3.8-10.2); NEUT % 51.5 % (42.8-82.8); PLATELET COUNT 69 K/MM3 (134-434); RBC 2.72 M/mm3 (4.00-5.60); RDW 16.3 % (11.9-15.9); VENOUS PO2 < 49 mmHg (28-48); WHITE BLOOD COUNT 2.9 K/mm3 (4.0-10.0)
[2019-05-27 11:30] LABS: INR 1.3 (0.83-1.09); PROTHROMBIN TIME (PATIENT) 15.4 SEC (9.7-13.0)
[2019-05-27 11:32] LABS: ACTIVATED PTT 37.5 SECONDS (25.2-36.5)
--- NOTE | 2019-05-27 11:47 | PDOC ---
History of Present Illness - General Chief Complaint: Shortness of Breath Stated Complaint: Shortness of Breath Time Seen by Provider: 05/27/19 10:46 History Source: Patient Exam Limitations: No Limitations - History of Present Illness Initial Comments: 05/27/19 11:41 Source: Patient HPI: 74yo M with PMH IDDM, hepatic encephalopathy, cirrhosis, esophageal varices , CHF, COPD, HTN presenting from [facility] with progressive SOB, LE swelling over the past month with 50L weight gain, now reliant on oxygen for breathing. Patient reports "I am full of fluid" and explains that over michael past month his legs have swollen, his breathing has progressively worsened, he now feels as though he cannot breath without using supplemental oxygen. Denies chest pain, palpitations, LH, syncope, diaphoresis. All: NKDA Meds: Per chart PMH: as above Past History - Travel Traveled outside of the country in the last 30 days: No Close contact w/someone who was outside of country & ill: No - Past Medical History Allergies/Adverse Reactions: Allergies Allergy/AdvReac Type Severity Reaction Status Date / Time No Known Allergies Allergy Verified 05/27/19 10:37 Home Medications: Ambulatory Orders Omeprazole 20 mg PO DAILY 11/05/18 Tamsulosin HCl [Flomax] 0.4 mg PO DAILY 11/05/18 Rifaximin [Xifaxan -] 550 mg PO BID #60 tablet 11/08/18 Lactulose 10 gm PO BID 03/28/19 Spironolactone 25 mg PO DAILY 03/28/19 Insulin Sliding Scale [Novolog Vial Sliding Scale -] 1 vial SQ ACHS units 04/05 Nadolol [Corgard -] 40 mg PO DAILY tablet 04/05/19 Polyethylene Glycol 3350 [Miralax 119 gm Btl -] 34 gm PO BID bottle 04/05/19 Acetaminophen [Tylenol] 650 mg PO TID 05/27/19 Ascorbate Calcium [Vitamin C] 500 mg PO DAILY 05/27/19 Calcium (Oyster Shell) [Os-Gerhard 500Mg -] 500 mg PO DAILY 05/27/19 Dextran 70/Hypromellose/Pf [Artificial Tears Drops] 1 each OP DAILY 05/27/19 Ferrous Sulfate 325 mg PO DAILY 05/27/19 Insulin (Levemir) [Levemir Vial] 25 unit SQ AM 05/27/19 Anemia: Yes Asthma: No Cancer: No Cardiac Disorders: No CVA: No COPD: Yes (EMPHYSEMA) CHF: Yes Dementia: No Diabetes: Yes (NIDDM) GI Disorders: Yes (ESOPHAGEAL VARICES) Disorders: Yes (ESBL IN URINE) HTN: No Hypercholesterolemia: No Liver Disease: Yes (CIRRHOSIS) Seizures: No Thyroid Disease: No - Surgical History Abdominal Surgery: Yes (ESOPHAGEAL SX, HERNIA) Appendectomy: No Cardiac Surgery: No Cholecystectomy: No Lung Surgery: No Neurologic Surgery: No Orthopedic Surgery: No - Immunization History Immunization Up to Date: Yes - Psycho Social/Smoking Cessation Hx Smoking Status: Yes Smoking History: Former smoker Have you smoked in the past 12 months: No Number of Cigarettes Smoked Daily: 10 If you are a former smoker, when did you quit?: smokes daily Information on smoking cessation initiated: No 'Breaking Loose' booklet given: 11/30/18 Hx Alcohol Use: No Drug/Substance Use Hx: No Substance Use Type: Alcohol Hx Substance Use Treatment: No Review of Systems - Review of Systems Able to Perform ROS?: Yes Is the patient limited Kyrgyz proficient: Yes Constitutional: No: Chills, Diaphoresis, Fever, Weight Stable (up 50LBs) HEENTM: No: Eye Pain, Nose Congestion, Throat Pain Respiratory: Yes: Cough (for 2 months), Orthopnea, Shortness of Breath, SOB with Exertion. No: Wheezing, Productive cough, Hemoptysis Cardiac (ROS): No: Chest Pain, Irregular Heart Rate ABD/GI: No: Constipated, Diarrhea, Nausea, Poor Appetite, Poor Fluid Intake, Vomiting : No: Burning, Dysuria, Frequency, Pain Musculoskeletal: No: Symptoms Reported Integumentary: No: Symptoms Reported Neurological: No: Symptoms reported, Headache, Tingling, Weakness Endocrine: No: Symptoms Reported Hematologic/Lymphatic: No: Symptoms Reported, Anemia, Blood Clots, Easy Bleeding All Other Systems: Reviewed and Negative *Physical Exam - Vital Signs Last Vital Signs Temp Pulse Resp BP Pulse Ox 98.6 F 64 20 133/62 100 05/27/19 10:37 05/27/19 11:18 05/27/19 10:37 05/27/19 10:37 05/27/19 11:18 - Physical Exam Comments: 05/27/19 11:56 Vitals reviewed, AFVSS Obese man, sitting upright in bed, on 4L NC with 100% O2 Sat EOMI, MMM, NCAT, trachea midline RRR, nls1s2, no murmurs appreciated R lung with rhonchi, reduced breath sounds bilaterally at lung bases, tachypnic , good saturation on 4L NC Obese, non-tender, non-distended, -fluid wave 3+ pitting edema up past the knees bilaterally, WWP 2+ radial pulses bilaterally Alert and oriented, CN grossly intact, MAEE ED Treatment Course - LABORATORY CBC & Chemistry Diagram: 05/27/19 11:05 05/27/19 11:05 - ADDITIONAL ORDERS Additional order review: Laboratory Results 05/27/19 05/27/19 11:05 11:05 PT with INR 15.40 H INR 1.30 H PTT (Actin FS) 37.5 H VBG pH 7.32 POC VBG pCO2 51.9 POC VBG pO2 < 49 H VBG HCO3 26.0 VBG O2 Sat (Leti) 55.5 L VBG Base Excess 0.1 05/27/19 11:05 RBC 2.72 L MCV 103.4 H MCHC 33.3 RDW 16.3 H MPV 8.4 Neutrophils % 51.5 Lymphocytes % 20.8 Monocytes % 12.9 H Eosinophils % 14.0 H D Basophils % 0.8 Medical Decision Making - Medical Decision Making 05/27/19 11:47 74yo M with PMH IDDM, hepatic encephalopathy, cirrhosis, esophageal varices, CHF , COPD, HTN presenting from [facility] with progressive SOB, LE swelling over the past month with 50L weight gain, now reliant on oxygen for breathing. DDX: CHF exacerbation with questionably superimposed pneumonia, less likely PTX, PNA, PE. -CBC, CMP, Cardiac Profile, BNP -UA, UCx -EKG, CXR EKG with 62 bpm, NSR, normal axis, QTc 452, LBBB c/w prior EKG POCUS performed with Dr. Frazier, demonstrating large bilateral pleural effusions with +tongue sign 05/27/19 12:04 -0.06 troponin -Pancytopenia -Cr 1.3 -BNP 5331 -Alk Phos 229 Dispo: Admit Telemetry -CHF Exacerbation / Fluid Overload -Troponinemia 05/27/19 12:16 -CXR with moderate R pleural effusion with associated atelectasis 05/27/19 13:09 Sign out given to Alex Moeller Admitted Tele Discharge - Discharge Information Problems reviewed: Yes Clinical Impression/Diagnosis: SOPHIE (acute kidney injury), Troponin level elevated CHF (congestive heart failure) Qualifiers: Heart failure type: unspecified Heart failure chronicity: acute on chronic Qualified Code(s): I50.9 - Heart failure, unspecified Condition: Guarded - Admission Yes - Follow up/Referral Referrals: Nidhi Vargas MD [Primary Care Provider] - - Patient Discharge Instructions - Post Discharge Activity
[2019-05-27 11:50] LABS: ALBUMIN 2.4 g/dl (3.4-5.0); BILIRUBIN,TOTAL 2.8 mg/dL (0.2-1); BLOOD UREA NITROGEN 34.5 mg/dL (7-18); CALCIUM 8.1 mg/dL (8.5-10.1); CREATININE 1.3 mg/dL (0.55-1.3); POTASSIUM 4.8 mmol/L (3.5-5.1); TOT PROT 5.5 g/dl (6.4-8.2)
--- NOTE | 2019-05-27 12:19 | PDOC ---
Documentation entered by Genny Lanza SCRIBE, acting as scribe for Raf Laureano MD. Raf Laureano MD: This documentation has been prepared by the Myla oscar Xhesika, SCRIBE, under my direction and personally reviewed by me in its entirety. I confirm that the documentation accurately reflects all work, treatment, procedures, and medical decision making performed by me. Attending Attestation - Resident Resident Name: BusterTeddy - ED Attending Attestation I have performed the following: I have examined & evaluated the patient, The case was reviewed & discussed with the resident, I agree w/resident's findings & plan - HPI HPI: 05/27/19 11:39 The patient is a 74 year old male, with a significant past medical history of IDDM, Hepatic Encephalopathy, Liver Cirrhosis, Esophageal Varices, CHF, COPD, and hypertension who was BIBEMS from [facility] for 1 month of increasing abdominal girth and 3 weeks of increasing SOB. Pt notes he has not been able to walk short distances due to his LE edema without feeling short of breath. Pt has been endorsing 2 months of persistent cough. Patient notes he has been making urine. The patient denies chest pain, headache and dizziness. Denies fever, chills, nausea, vomiting, diarrhea and constipation. Denies dysuria, frequency, urgency and hematuria. Allergies: NKDA Past surgical history: variceal banding. Social history: Pt smokes 1/2 ppd. Prior alcohol use for many years. Son denies history of drug use. PCP: Dr. Vargas Liver specialist: Dr. Gordon - Physicial Exam PE: 05/27/19 11:44 GENERAL: The patient is awake, alert, and fully oriented, in no acute distress. HEAD: Normal with no signs of trauma. LUNGS: +decreased breath sounds at bottom 2/3 R lung field and L mid lung hughes. No wheeze/crackles. HEART: Regular rate and rhythm, normal S1 and S2 without murmur or rub. ABDOMEN: + abdominal wall edema. Soft/nontender. BS wnl. No guarding or rebound. No palpable masses. No hepatosplenomegaly. EXTREMITIES: + 3+ pitting edema to thighs. Normal range of motion. No clubbing or cyanosis. No cords, erythema, or tenderness. NEUROLOGICAL: Cranial nerves II through XII grossly intact. Normal speech PSYCH: Normal mood, normal affect. SKIN: Warm, Dry, normal turgor - Medical Decision Making 05/27/19 12:16 74-year-old male from [facility] with progressive abdominal girth and leg edema for about 1 month, SOB worsening for 3 weeks. On spironolactone at OR , denies cough/f/c/chest pain. VS as noted exam as noted with b/l decreased breath sounds and anasarca 74-year-old male with progressive volume overload, now with dyspnea, sent [facility]is. Labs notable for baseline pancytopenia, trop equivocal at 0.06 EKG baseline LBBB, chest x-ray moderate R pleural effusion IV diuresis Admission Heart Score/ECG Review #1 ECG reviewed & interpreted by me at: 10:40 General ECG Interpretation: Sinus Rhythm (LBBB), Normal Rate (62), No acute ischemic changes Compared to previous ECG there are: No significant change (04/17)
--- NOTE | 2019-05-27 13:31 | HP ---
Admitting History and Physical - Primary Care Physician PCP: Nidhi Vargas - Admission Chief Complaint: Worsening SOB History of Present Illness: Patient is a 74 y/o male with past medical history of IDDM, Hepatic Encephalopathy, Liver Cirrhosis, Esophageal Varices, CHF, COPD, and HTN. Patient presented to [facility] for worsening SOB x 1 month accompanied with productive cough. Denies dizziness or chest pain with SOB. Patient also states that he has gained 50lbs and bilateral lower extremity swelling. History Source: Patient Limitations to Obtaining History: No Limitations - Past Medical History Cardiovascular: Yes: CHF, HTN. No: AFIB, CAD Pulmonary: Yes: COPD Gastrointestinal: Yes: Esophageal Varices, Other (Hepatic encephalopathy) Hepatobiliary: Yes: Cirrhosis (Alcohol induced) Renal/: Yes: BPH Infectious Disease: Yes: Other (pneumonia) Endocrine: Yes: Diabetes Mellitus - Past Surgical History Past Surgical History: Yes: Hernia Repair, Upper Endoscopy - Smoking History Smoking history: Former smoker Have you smoked in the past 12 months: No Aproximately how many cigarettes per day: 10 If you are a former smoker, when did you quit?: smokes daily - Alcohol/Substance Use Hx Alcohol Use: No History of Substance Use: reports: None, Cocaine (ex intranasal cocaine use) - Social History Usual Living Arrangement: Yes: [facility] ADL: Independent Occupation: son lives upstairs History of Recent Travel: No Home Medications - Allergies Allergies/Adverse Reactions: Allergies Allergy/AdvReac Type Severity Reaction Status Date / Time No Known Allergies Allergy Verified 05/27/19 10:37 - Home Medications Home Medications: Ambulatory Orders Omeprazole 20 mg PO DAILY 11/05/18 Tamsulosin HCl [Flomax] 0.4 mg PO DAILY 11/05/18 Rifaximin [Xifaxan -] 550 mg PO BID #60 tablet 11/08/18 Lactulose 10 gm PO BID 03/28/19 Spironolactone 25 mg PO DAILY 03/28/19 Insulin Sliding Scale [Novolog Vial Sliding Scale -] 1 vial SQ ACHS units 04/05 Nadolol [Corgard -] 40 mg PO DAILY tablet 04/05/19 Polyethylene Glycol 3350 [Miralax 119 gm Btl -] 34 gm PO BID bottle 04/05/19 Acetaminophen [Tylenol] 650 mg PO TID 05/27/19 Ascorbate Calcium [Vitamin C] 500 mg PO DAILY 05/27/19 Calcium (Oyster Shell) [Os-Gerhard 500Mg -] 500 mg PO DAILY 05/27/19 Dextran 70/Hypromellose/Pf [Artificial Tears Drops] 1 each OP DAILY 05/27/19 Ferrous Sulfate 325 mg PO DAILY 05/27/19 Insulin (Levemir) [Levemir Vial] 25 unit SQ AM 05/27/19 Review of Systems - Review of Systems Constitutional: reports: Weakness Eyes: reports: No Symptoms HENT: reports: No Symptoms Neck: reports: No Symptoms Cardiovascular: reports: Palpitations, Shortness of Breath Respiratory: reports: Cough, SOB, SOB on Exertion Gastrointestinal: reports: Diarrhea Genitourinary: reports: No Symptoms Breasts: reports: No Symptoms Reported Musculoskeletal: reports: No Symptoms Integumentary: reports: No Symptoms Neurological: reports: No Symptoms Endocrine: reports: Increased Thirst Hematology/Lymphatic: reports: No Symptoms Psychiatric: reports: No Symptoms Physical Examination Vital Signs: Vital Signs Temperature 98.6 F 05/27/19 10:37 Pulse Rate 64 05/27/19 11:18 Respiratory Rate 20 05/27/19 10:37 Blood Pressure 133/62 05/27/19 10:37 O2 Sat by Pulse Oximetry (%) 100 05/27/19 11:18 Constitutional: Yes: No Distress, Calm Eyes: Yes: Conjunctiva Clear HENT: Yes: Atraumatic Cardiovascular: Yes: Regular Rate and Rhythm Respiratory: Yes: Regular, Cough, Diminished, On Nasal O2 Gastrointestinal: Yes: Normal Bowel Sounds, Soft, Abdomen, Obese Musculoskeletal: Yes: Muscle Weakness Extremities: Yes: WNL Edema: Yes Edema: LLE: 3+, RLE: 3+ Neurological: Yes: Alert, Oriented Psychiatric: Yes: Alert, Oriented Labs: CBC, BMP 05/27/19 11:05 05/27/19 11:05 Imaging - Results Chest X-ray: Report Reviewed Problem List - Problems (1) SOPHIE (acute kidney injury) Assessment/Plan: -BUN/Cr 34.5/1.3 -monitor renal function -Renal consult Code(s): N17.9 - ACUTE KIDNEY FAILURE, UNSPECIFIED (2) CHF (congestive heart failure) Assessment/Plan: -Cardiology consult -Tele monitoring -BNP 5331.6 -strict I&Os -daily weights -fluid restriction -CXR shows moderate bilateral pleural effusion with compressive atelectasis Code(s): I50.9 - HEART FAILURE, UNSPECIFIED Qualifiers: Heart failure type: unspecified Heart failure chronicity: acute on chronic Qualified Code(s): I50.9 - Heart failure, unspecified (3) Troponin level elevated Assessment/Plan: -Cardiology consult -tele monitoring -0.06, 0.04 Code(s): R79.89 - OTHER SPECIFIED ABNORMAL FINDINGS OF BLOOD CHEMISTRY (4) COPD (chronic obstructive pulmonary disease) Assessment/Plan: -Pulm consult -CXR shows moderate bilateral pleural effusion with compressive atelectasis -O2 via NC -keep SpO2 >90% Code(s): J44.9 - CHRONIC OBSTRUCTIVE PULMONARY DISEASE, UNSPECIFIED (5) Hepatic encephalopathy Assessment/Plan: -Xifaxin -GI consult -Lactulose -Nadolol, Spirinolactone Code(s): K72.90 - HEPATIC FAILURE, UNSPECIFIED WITHOUT COMA (6) Type II diabetes mellitus, uncontrolled Assessment/Plan: -BGM ACHS -ISS -Levemir -HgA1c Code(s): E11.65 - TYPE 2 DIABETES MELLITUS WITH HYPERGLYCEMIA (7) Pancytopenia Assessment/Plan: -Hematology consult -PLT 67, WBC 2.9, RBC 2.72 Code(s): D61.818 - OTHER PANCYTOPENIA Assessment/Plan see problem list dvt ppx
--- NOTE | 2019-05-27 14:04 | CON.CARD ---
Consult Consult Specialty:: Cardiology Referred by:: Dr Vargas Reason for Consultation:: Elevated troponin - History of Present Illness Chief Complaint: edema, ascites History of Present Illness: 74 y/o M with a history of NIDDM, liver cirrhosis with varices s/p variceal banding, hepatic encephalopathy, CHF, COPD, HTN, admitted with worsening edema, ascites and sob for one month. + orthopnea. No chest pain, palpitations, dizziness or syncope. Exercise tolerance is very poor. ECG without changes, noted pancytopenia, ascites, coagulopathy, and elevated troponin. - History Source History Provided By: Medical Record - Past Medical History Cardio/Vascular: Yes: CHF, HTN. No: AFIB, CAD Pulmonary: Yes: COPD Gastrointestinal: Yes: Esophageal Varices, Other (Hepatic encephalopathy) Hepatobiliary: Yes: Cirrhosis (Alcohol induced) Renal/: Yes: BPH Infectious Disease: Yes: Other (pneumonia) Endocrine: Yes: Diabetes Mellitus - Past Surgical History Past Surgical History: Yes: Hernia Repair, Upper Endoscopy - Alcohol/Substance Use Hx Alcohol Use: No History of Substance Use: reports: None, Cocaine (ex intranasal cocaine use) - Smoking History Smoking history: Former smoker Have you smoked in the past 12 months: No Aproximately how many cigarettes per day: 10 If you are a former smoker, when did you quit?: smokes daily - Social History Usual Living Arrangement: Alone ADL: Independent Occupation: son lives upstairs History of Recent Travel: No Home Medications - Allergies Allergies/Adverse Reactions: Allergies Allergy/AdvReac Type Severity Reaction Status Date / Time No Known Allergies Allergy Verified 05/27/19 10:37 - Home Medications Home Medications: Ambulatory Orders Omeprazole 20 mg PO DAILY 11/05/18 Tamsulosin HCl [Flomax] 0.4 mg PO DAILY 11/05/18 Rifaximin [Xifaxan -] 550 mg PO BID #60 tablet 11/08/18 Lactulose 10 gm PO BID 03/28/19 Spironolactone 25 mg PO DAILY 03/28/19 Insulin Sliding Scale [Novolog Vial Sliding Scale -] 1 vial SQ ACHS units 04/05 Nadolol [Corgard -] 40 mg PO DAILY tablet 04/05/19 Polyethylene Glycol 3350 [Miralax 119 gm Btl -] 34 gm PO BID bottle 04/05/19 Acetaminophen [Tylenol] 650 mg PO TID 05/27/19 Ascorbate Calcium [Vitamin C] 500 mg PO DAILY 05/27/19 Calcium (Oyster Shell) [Os-Gerhard 500Mg -] 500 mg PO DAILY 05/27/19 Dextran 70/Hypromellose/Pf [Artificial Tears Drops] 1 each OP DAILY 05/27/19 Ferrous Sulfate 325 mg PO DAILY 05/27/19 Insulin (Levemir) [Levemir Vial] 25 unit SQ AM 05/27/19 Vital Signs: Vital Signs Temperature 98.6 F 05/27/19 10:37 Pulse Rate 64 05/27/19 11:18 Respiratory Rate 20 05/27/19 10:37 Blood Pressure 133/62 05/27/19 10:37 O2 Sat by Pulse Oximetry (%) 100 05/27/19 11:18 Constitutional: Yes: No Distress, Calm Eyes: Yes: EOM Intact HENT: Yes: Normocephalic Neck: Yes: Trachea Midline Respiratory: Yes: Dullness (rt lung) Gastrointestinal: Yes: Normal Bowel Sounds, Abdomen, Obese, Other (ascites) JVD: Yes Carotid Bruit: No PMI: Non-Displaced Heart Sounds: Yes: S1, S2 Edema: Yes Edema: LLE: 3+, RLE: 3+ Peripheral Pulses WNL: Yes - Other Data Labs, Other Data: CBC, BMP 05/27/19 11:05 05/27/19 11:05 INR, PTT INR 1.30 (0.83-1.09) H 05/27/19 11:05 Troponin, BNP 05/27/19 05/27/19 11:05 11:05 Troponin I 0.06 H B-Natriuretic Peptide 5331.6 H Troponin, BNP 05/27/19 05/27/19 11:05 11:05 Troponin I 0.06 H B-Natriuretic Peptide 5331.6 H Imaging - Results Chest X-ray: Report Reviewed (rt effusion) EKG: Report Reviewed (LBBB) Assessment/Plan 74 y/o M with a history of NIDDM, 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 + orthopnea. No chest pain, palpitations, dizziness or syncope. Exercise tolerance is very poor. ECG without changes, noted pancytopenia, ascites, coagulopathy, and elevated troponin. Plan -diurese per GI/liver, will need IV lasix and spironolactone, follow creat and K -not a candidate for ischemia workup -echo -no AC or antiplatelets due to coagulopathy and liver disease.
--- NOTE | 2019-05-27 15:14 | EKG ---
Test Reason : Blood Pressure : / mmHG Vent. Rate : 062 BPM Atrial Rate : 062 BPM P-R Int : 200 ms QRS Dur : 146 ms QT Int : 446 ms P-R-T Axes : 012 -12 085 degrees QTc Int : 452 ms NORMAL SINUS RHYTHM LEFT BUNDLE BRANCH BLOCK ABNORMAL ECG WHEN COMPARED WITH ECG OF 02-APR-2019 01:57, PREMATURE VENTRICULAR COMPLEXES ARE NO LONGER PRESENT T WAVE AMPLITUDE HAS DECREASED IN INFERIOR LEADS NONSPECIFIC T WAVE ABNORMALITY NOW EVIDENT IN LATERAL LEADS Confirmed by MD Ta, Joby ([id number]) on 05/27/2019 3:14:42 PM Referred By: Confirmed By:Joby Chappell MD
[2019-05-27 16:00] LABS: EPI CELLS 1.9 /HPF (0-5/HPF); HYALINE CASTS 5 /lpf (0-8); PH,URINE 5.5 (5.0-8.0); URINE APPEARANCE CLEAR; URINE BACTERIA 0.3 /hpf (NEGATIVE); URINE BILIRUBIN 1+ (NEGATIVE); URINE COLOR DK YELLOW; URINE GLUCOSE (UA) TRACE (NEGATIVE); URINE KETONE TRACE (NEGATIVE); URINE LEUK ESTERASE NEGATIVE (NEGATIVE); URINE NITRITE NEGATIVE (NEGATIVE); URINE PROTEIN 1+ (NEGATIVE); URINE RBC 4 /hpf (0-4); URINE WBC 1 /hpf (0-5)
--- NOTE | 2019-05-27 16:16 | CONSULT ---
Consult Consult Specialty:: Hematology and oncology Reason for Consultation:: Pancytopenia - History of Present Illness Chief Complaint: SOB History of Present Illness: The patient is a 74 yo m w/ PMH HTN, CHF, COPD, Cirrhosis (2/2 etoh abuse) who was BIBEMS from [facility] for SOB. In the ED, he was found to be pancytopenic. Hematology was consulted for assistance in the evaluation of this panytopenia. On evaluation, the patient states that his SOB is improved since admission. He states that he belives that he has had low blood counts in the past, but does not recall the reasons why or which of his blood counts were low. He has never seen a under ground miner in the past. Patient denies personal history of cancer. He does endorse mesothelioma 2/2 asbestosis in his father. Patient denies other family history of cancer or blood disorders. - History Source History Provided By: Patient Limitations to Obtaining History: No Limitations - Past Medical History Cardio/Vascular: Yes: CHF, HTN. No: AFIB, CAD Pulmonary: Yes: COPD Gastrointestinal: Yes: Esophageal Varices, Other (Hepatic encephalopathy) Hepatobiliary: Yes: Cirrhosis (Alcohol induced) Renal/: Yes: BPH Infectious Disease: Yes: Other (pneumonia) Endocrine: Yes: Diabetes Mellitus - Past Surgical History Past Surgical History: Yes: Hernia Repair, Upper Endoscopy - Alcohol/Substance Use Hx Alcohol Use: No History of Substance Use: reports: None, Cocaine (ex intranasal cocaine use) - Smoking History Smoking history: Former smoker Have you smoked in the past 12 months: No Aproximately how many cigarettes per day: 10 If you are a former smoker, when did you quit?: smokes daily - Social History Usual Living Arrangement: Alone ADL: Independent Occupation: son lives upstairs History of Recent Travel: No Home Medications - Allergies Allergies/Adverse Reactions: Allergies Allergy/AdvReac Type Severity Reaction Status Date / Time No Known Allergies Allergy Verified 05/27/19 10:37 - Home Medications Home Medications: Ambulatory Orders Omeprazole 20 mg PO DAILY 11/05/18 Tamsulosin HCl [Flomax] 0.4 mg PO DAILY 11/05/18 Rifaximin [Xifaxan -] 550 mg PO BID #60 tablet 11/08/18 Lactulose 10 gm PO BID 03/28/19 Spironolactone 25 mg PO DAILY 03/28/19 Insulin Sliding Scale [Novolog Vial Sliding Scale -] 1 vial SQ ACHS units 04/05 Nadolol [Corgard -] 40 mg PO DAILY tablet 04/05/19 Polyethylene Glycol 3350 [Miralax 119 gm Btl -] 34 gm PO BID bottle 04/05/19 Acetaminophen [Tylenol] 650 mg PO TID 05/27/19 Ascorbate Calcium [Vitamin C] 500 mg PO DAILY 05/27/19 Calcium (Oyster Shell) [Os-Gerhard 500Mg -] 500 mg PO DAILY 05/27/19 Dextran 70/Hypromellose/Pf [Artificial Tears Drops] 1 each OP DAILY 05/27/19 Ferrous Sulfate 325 mg PO DAILY 05/27/19 Insulin (Levemir) [Levemir Vial] 25 unit SQ AM 05/27/19 Review of Systems - Review of Systems Constitutional: denies: Chills, Fever Cardiovascular: reports: Shortness of Breath. denies: Chest Pain, Palpitations Respiratory: reports: SOB, SOB on Exertion. denies: Cough, Hemoptysis Gastrointestinal: denies: Abdominal Pain, Rectal Bleeding, Vomiting Blood Physical Exam Vital Signs: Vital Signs Temperature 97.5 F L 05/27/19 14:48 Pulse Rate 64 05/27/19 14:48 Respiratory Rate 20 05/27/19 14:48 Blood Pressure 114/58 L 05/27/19 14:48 O2 Sat by Pulse Oximetry (%) 100 05/27/19 14:48 Constitutional: Yes: No Distress, Calm Neck: Yes: Supple, Trachea Midline Cardiovascular: Yes: Regular Rate and Rhythm, S1, S2. No: Gallop, Murmur, Rub Respiratory: Yes: Regular, Diminished (bilaterally at the bases) Gastrointestinal: Yes: Normal Bowel Sounds, Soft Edema: No Neurological: Yes: Alert, Oriented, Cran Nerves II-XII Intact Psychiatric: Yes: Alert, Oriented Labs: CBC, BMP 05/27/19 11:05 05/27/19 11:05 Assessment/Plan The patient is a 74 yo m w/ PMH HTN, CHF, COPD, Cirrhosis (2/2 etoh abuse) who was BIBEMS from [facility] for SOB. In the ED, he was found to be pancytopenic. Hematology was consulted for assistance in the evaluation of this panytopenia. #pancytopenia likely 2/2 liver congestion in the setting of liver cirrhosis and CHF, r/o MDS -patient had this on past admissions, especially low Hb and platelets. -monitor CBC daily -diuresis as per primary team/cardiology -monitor for bleeding -transfuse to maintain Hb >=8 -Ordered B12, folate, TSH, Iron studies, SPEP, UPEP -will order flow cytometry/FISH/Cytogenetics in AM
[2019-05-27] MEDS ORDERED: INSULIN SLIDING SCALE (NOVOLOG) 1 VIAL SQ SCH (16:30)
--- NOTE | 2019-05-27 21:11 | PN ---
Teaching Attending Note Name of Resident: Taco Gomez ATTENDING PHYSICIAN STATEMENT I saw and evaluated the patient. I reviewed the resident's note and discussed the case with the resident. I agree with the resident's findings and plan as documented. ASSESSMENT AND PLAN: Patient is a 74 yo m w/ PMH HTN, CHF, COPD, Cirrhosis (2/2 etoh abuse) [facility] In the ED, he was found to be pancytopenic. Hematology was consulted for assistance in the evaluation of this panytopenia. #pancytopenia likely 2/2 liver congestion in the setting of liver cirrhosis and CHF, r/o MDS -Ordered B12, folate, TSH, Iron studies, SPEP, UPEP -will order flow cytometry/FISH/Cytogenetics Transfuseto keep Hgb >8
[2019-05-27] MEDS ORDERED: POLYETHYLENE GLYCOL 3350 119 GM BTL PO SCH (22:00)
[2019-05-27] MEDS ORDERED: PT OWN MED DRAWER 7, Y5N ONE (22:44)
[2019-05-27] MEDS: INSULIN SLIDING SCALE (NOVOLOG) 1 VIAL SQ SCH (22:48)
[2019-05-27] MEDS: LACTULOSE 20 GM/30 ML UDC (FOR ORAL USE ONLY) PO SCH (22:48)
[2019-05-27] MEDS: HEPARIN NA (PORCINE) 5,000 UNITS/ML 1ML VIAL SQ SCH (22:48)
[2019-05-27] MEDS: RIFAXIMIN 550 MG TABLET (UD) PO SCH (22:49)
[2019-05-28] MEDS: INSULIN (LEVEMIR) 100 UNITS/ML UNITS SQ SCH (06:24)
[2019-05-28] MEDS: INSULIN SLIDING SCALE (NOVOLOG) 1 VIAL SQ SCH ×4 (06:25→22:50)
[2019-05-28 06:51] LABS: BASO % 0.7 % (0-2.0); EOS % 12.3 % (0-4.5); HEMATOCRIT 26.2 % (35.4-49); HEMOGLOBIN 8.8 GM/dL (11.7-16.9); LYMPH % 25.4 % (8-40); MCH 34.5 pg (25.7-33.7); MCHC 33.7 g/dl (32.0-35.9); MEAN CELL VOLUME 102.5 fl (80-96); MEAN PLT VOLUME 9.9 fl (7.5-11.1); MONO % 11.3 % (3.8-10.2); NEUT % 50.3 % (42.8-82.8); PLATELET COUNT 62 K/MM3 (134-434); RBC 2.56 M/mm3 (4.00-5.60); RDW 15.9 % (11.9-15.9); WHITE BLOOD COUNT 2.7 K/mm3 (4.0-10.0)
[2019-05-28 07:47] LABS: ALBUMIN 2.4 g/dl (3.4-5.0); BILIRUBIN,TOTAL 2.4 mg/dL (0.2-1); BLOOD UREA NITROGEN 40.3 mg/dL (7-18); CALCIUM 8.2 mg/dL (8.5-10.1); CREATININE 1.4 mg/dL (0.55-1.3); MAGNESIUM 2.2 mg/dL (1.8-2.4); N-TERMINAL BNP 4235.7 pg/ml (5-125); PHOSPHOROUS 3.7 mg/dL (2.5-4.9); POTASSIUM 4.7 mmol/L (3.5-5.1); TOT PROT 5.3 g/dl (6.4-8.2)
--- NOTE | 2019-05-28 08:55 | CON.GI ---
Consult Consult Specialty:: GI Referred by:: Stephani Moeller NP Reason for Consultation:: Hepatic Encephalopathy - History of Present Illness History of Present Illness: Patient is a 74 y/o male with past medical history of IDDM, Hepatic Encephalopathy, Liver Cirrhosis, Esophagea Varices, CHF, COPD, HTN. Consult was placed due to history of Hepatic Encephalopathy. Admission labs show mildly elevated AST 44 and Alk Phos 239. Patient was diagnosed with Cirrhosis "a couple of years ago" and states was given treatment. Admits to past ETOH abuse of 1 pint of vodka per day for around 20 yrs. States having abdominal discomfort due to "fluid". Denies nausea, vomiting, constipation, rectal bleeding or melena. States having diarrhea but takes Lactulose daily. Patient admitted with progressive volume overload. - History Source History Provided By: Patient Limitations to Obtaining History: No Limitations - Past Medical History Cardio/Vascular: Yes: CHF, HTN. No: AFIB, CAD Pulmonary: Yes: COPD Gastrointestinal: Yes: Esophageal Varices, Other (Hepatic encephalopathy) Hepatobiliary: Yes: Cirrhosis (Alcohol induced) Renal/: Yes: BPH Infectious Disease: Yes: Other (pneumonia) Endocrine: Yes: Diabetes Mellitus - Past Surgical History Past Surgical History: Yes: Hernia Repair, Upper Endoscopy - Alcohol/Substance Use Hx Alcohol Use: No History of Substance Use: reports: None, Cocaine (ex intranasal cocaine use) - Smoking History Smoking history: Former smoker Have you smoked in the past 12 months: No Aproximately how many cigarettes per day: 10 If you are a former smoker, when did you quit?: smokes daily - Social History Usual Living Arrangement: Alone ADL: Independent Occupation: son lives upstairs History of Recent Travel: No Home Medications - Allergies Allergies/Adverse Reactions: Allergies Allergy/AdvReac Type Severity Reaction Status Date / Time No Known Allergies Allergy Verified 05/27/19 10:37 - Home Medications Home Medications: Ambulatory Orders Omeprazole 20 mg PO DAILY 11/05/18 Tamsulosin HCl [Flomax] 0.4 mg PO DAILY 11/05/18 Rifaximin [Xifaxan -] 550 mg PO BID #60 tablet 11/08/18 Lactulose 10 gm PO BID 03/28/19 Spironolactone 25 mg PO DAILY 03/28/19 Insulin Sliding Scale [Novolog Vial Sliding Scale -] 1 vial SQ ACHS units 04/05 Nadolol [Corgard -] 40 mg PO DAILY tablet 04/05/19 Polyethylene Glycol 3350 [Miralax 119 gm Btl -] 34 gm PO BID bottle 04/05/19 Acetaminophen [Tylenol] 650 mg PO TID 05/27/19 Ascorbate Calcium [Vitamin C] 500 mg PO DAILY 05/27/19 Calcium (Oyster Shell) [Os-Gerhard 500Mg -] 500 mg PO DAILY 05/27/19 Dextran 70/Hypromellose/Pf [Artificial Tears Drops] 1 each OP DAILY 05/27/19 Ferrous Sulfate 325 mg PO DAILY 05/27/19 Insulin (Levemir) [Levemir Vial] 25 unit SQ AM 05/27/19 Review of Systems - Review of Systems Constitutional: reports: No Symptoms Eyes: reports: No Symptoms HENT: reports: No Symptoms Neck: reports: No Symptoms Cardiovascular: reports: No Symptoms Respiratory: reports: No Symptoms Gastrointestinal: reports: Abdominal Pain, Diarrhea Genitourinary: reports: No Symptoms Breasts: reports: No Symptoms Reported Musculoskeletal: reports: No Symptoms Integumentary: reports: No Symptoms Neurological: reports: No Symptoms Endocrine: reports: No Symptoms Hematology/Lymphatic: reports: No Symptoms Psychiatric: reports: No Symptoms Physical Exam-GI Vital Signs: Vital Signs Temperature 98.4 F 05/28/19 02:00 Pulse Rate 70 05/28/19 06:00 Respiratory Rate 20 05/28/19 06:00 Blood Pressure 127/53 L 05/28/19 06:00 O2 Sat by Pulse Oximetry (%) 98 05/28/19 04:19 Constitutional: Yes: No Distress, Calm Eyes: Yes: Conjunctiva Clear HENT: Yes: Atraumatic Cardiovascular: Yes: Regular Rate and Rhythm Respiratory: Yes: Regular, CTA Bilaterally Gastrointestinal Inspection: Yes: Ascites. No: WNL, Distention, Hernia, Scars, Other ...Auscultate: Yes: Normoactive Bowel Sounds. No: Hyperactive Bowel Sounds, Hypoactive Bowel Sounds, No Bowel Sounds, Other ...Palpate: Yes: Soft. No: Firm/Rigid, Guarding, Hepatomegaly, Mass, Pulsatile Mass, Splenomegaly, Tenderness, Tenderness, Epigastium, Tenderness, Rebound, Other ...Percussion: Yes: Tympanitic. No: Dullness, Fluid Wave, Other Neurological: Yes: Alert, Oriented Psychiatric: Yes: Alert, Oriented Labs: CBC, BMP 05/28/19 05:47 05/28/19 05:47 INR, PTT INR 1.30 (0.83-1.09) H 05/27/19 11:05 Problem List - Problems (1) Cirrhosis of liver Code(s): K74.60 - UNSPECIFIED CIRRHOSIS OF LIVER (2) Hepatic encephalopathy Code(s): K72.90 - HEPATIC FAILURE, UNSPECIFIED WITHOUT COMA
[2019-05-28] MEDS: TAMSULOSIN HCL 0.4 MG CAP PO SCH (11:04)
[2019-05-28] MEDS: SPIRONOLACTONE 25 MG TABLET (FP) PO SCH (11:05)
[2019-05-28] MEDS: LACTULOSE 20 GM/30 ML UDC (FOR ORAL USE ONLY) PO SCH ×2 (11:05→22:49)
[2019-05-28] MEDS: FERROUS SO4 325 MG TABLET (FP) PO SCH (11:06)
[2019-05-28] MEDS: ASCORBIC ACID 500 MG TABLET (FP) PO SCH (11:06)
[2019-05-28] MEDS: HEPARIN NA (PORCINE) 5,000 UNITS/ML 1ML VIAL SQ SCH ×2 (11:06→22:49)
[2019-05-28] MEDS: CALCIUM (OYSTER SHELL) 500 MG TABLET (FP) PO SCH (11:06)
[2019-05-28] MEDS: RIFAXIMIN 550 MG TABLET (UD) PO SCH ×2 (11:07→22:47)
--- NOTE | 2019-05-28 11:22 | PN ---
Progress Note (short form) - Note Progress Note: PULMONARY CONSULTATION DICTATED 05/08/19 IMP DYSPNEA CHF ACUTE ON CHRONIC HYPOXEMIC/HYPERCAPNEIC RESPIRATORY FAILURE VOLUME OVERLOAD ASCITES COPD O2 DEPENDENT PLEURAL EFFUSION HEPATIC ENCEPHALOPATHY DM CIRRHOSIS WITH ESOPHAGEAL VARICES S/P BANDING PANCYTOPENIA SOPHIE H/O ETOH PLAN DIURETICS O2 DAILY WT ABG MONITOR LYTES,RENAL FUNCTION MONITOR H+H CHEST CT CHECK AMMONIA LEVEL DR COLLAZO Problem List - Problems (1) SOPHIE (acute kidney injury) Code(s): N17.9 - ACUTE KIDNEY FAILURE, UNSPECIFIED (2) CHF (congestive heart failure) Code(s): I50.9 - HEART FAILURE, UNSPECIFIED Qualifiers: Heart failure type: unspecified Heart failure chronicity: acute on chronic Qualified Code(s): I50.9 - Heart failure, unspecified (3) Pancytopenia Code(s): D61.818 - OTHER PANCYTOPENIA (4) Acute renal failure (ARF) Code(s): N17.9 - ACUTE KIDNEY FAILURE, UNSPECIFIED (5) Altered mental status Code(s): R41.82 - ALTERED MENTAL STATUS, UNSPECIFIED Qualifiers: Altered mental status type: disorientation Qualified Code(s): R41.0 - Disorientation, unspecified (6) Anemia Code(s): D64.9 - ANEMIA, UNSPECIFIED (7) COPD (chronic obstructive pulmonary disease) Code(s): J44.9 - CHRONIC OBSTRUCTIVE PULMONARY DISEASE, UNSPECIFIED (8) Chronic systolic congestive heart failure Code(s): I50.22 - CHRONIC SYSTOLIC (CONGESTIVE) HEART FAILURE (9) Cirrhosis of liver Code(s): K74.60 - UNSPECIFIED CIRRHOSIS OF LIVER (10) Esophageal varices Code(s): I85.00 - ESOPHAGEAL VARICES WITHOUT BLEEDING (11) Hepatic encephalopathy Code(s): K72.90 - HEPATIC FAILURE, UNSPECIFIED WITHOUT COMA (12) Hypoxia Code(s): R09.02 - HYPOXEMIA (13) Acute on chronic respiratory failure with hypoxia and hypercapnia Code(s): J96.21 - ACUTE AND CHRONIC RESPIRATORY FAILURE WITH HYPOXIA; J96.22 - ACUTE AND CHRONIC RESPIRATORY FAILURE WITH HYPERCAPNIA
[2019-05-28] MEDS: NADOLOL 40 MG TABLET (FP) PO SCH (11:48)
--- NOTE | 2019-05-28 11:54 | PN ---
Progress Note, Physician Chief Complaint: SOB Hepatic encephalopathy Ascitis History of Present Illness: SOB on exertion Just returned [place] Spoke to daughter Mirlande over the phone - Current Medication List Current Medications: Active Medications Ascorbic Acid (Vitamin C -) 500 mg PO DAILY [facility] Last Admin: 05/28/19 11:06 Dose: 500 mg Calcium Carbonate (Os-Gerhard 500mg -) 500 mg PO DAILY [facility] Last Admin: 05/28/19 11:06 Dose: 500 mg Ferrous Sulfate (Feosol -) 325 mg PO DAILY [facility] Last Admin: 05/28/19 11:06 Dose: 325 mg Heparin Sodium (Porcine) (Heparin -) 5,000 unit SQ BID [facility] Last Admin: 05/28/19 11:06 Dose: 5,000 unit Insulin Aspart (Novolog Vial Sliding Scale -) 1 vial SQ ACHS [facility]; Protocol Last Admin: 05/28/19 06:25 Dose: Not Given Insulin Detemir (Levemir Vial) 25 units SQ AM [facility] Last Admin: 05/28/19 06:24 Dose: Not Given Lactulose (Cephulac (Oral Use)) 10 gm PO BID [facility] Last Admin: 05/28/19 11:05 Dose: 10 gm Nadolol (Corgard -) 40 mg PO DAILY [facility] Last Admin: 05/28/19 11:48 Dose: 40 mg Polyethylene Glycol (Miralax (For Daily Use) -) 34 gm PO BID [facility] Rifaximin (Xifaxan -) 550 mg PO BID [facility] Last Admin: 05/28/19 11:07 Dose: 550 mg Spironolactone (Aldactone -) 25 mg PO DAILY [facility] Last Admin: 05/28/19 11:05 Dose: 25 mg Tamsulosin HCl (Flomax -) 0.4 mg PO DAILY@0830 [facility] Last Admin: 05/28/19 11:04 Dose: 0.4 mg - Objective Vital Signs: Vital Signs Temperature 98.4 F 05/28/19 02:00 Pulse Rate 70 05/28/19 06:00 Respiratory Rate 20 05/28/19 06:00 Blood Pressure 127/53 L 05/28/19 06:00 O2 Sat by Pulse Oximetry (%) 98 05/28/19 04:19 Constitutional: Yes: Well Nourished, No Distress, Calm, Obese Cardiovascular: Yes: Regular Rate and Rhythm Respiratory: Yes: Regular, CTA Bilaterally, Diminished (BLL) Gastrointestinal: Yes: Normal Bowel Sounds, Soft, Abdomen, Obese, Ascites Genitourinary: Yes: WNL Musculoskeletal: Yes: Muscle Weakness Extremities: Yes: WNL Edema: Yes Edema: LLE: 1+, RLE: 1+ Peripheral Pulses WNL: Yes Neurological: Yes: Alert, Oriented Psychiatric: Yes: Alert, Oriented Labs: CBC, BMP 05/28/19 05:47 05/28/19 05:47 INR, PTT INR 1.30 (0.83-1.09) H 05/27/19 11:05 Assessment/Plan (1) SOPHIE (acute kidney injury) Assessment/Plan: -monitor renal function -Nephrology consult Code(s): N17.9 - ACUTE KIDNEY FAILURE, UNSPECIFIED (2) CHF (congestive heart failure) Assessment/Plan: -Cardiology consult -Tele monitoring -IV furosemide + Spironolactone -strict I&Os -daily weights -fluid restriction -CXR shows moderate bilateral pleural effusion with compressive atelectasis Code(s): I50.9 - HEART FAILURE, UNSPECIFIED Qualifiers: Heart failure type: unspecified Heart failure chronicity: acute on chronic Qualified Code(s): I50.9 - Heart failure, unspecified (3) Troponin level elevated Assessment/Plan: -Cardiology consult -tele monitoring Code(s): R79.89 - OTHER SPECIFIED ABNORMAL FINDINGS OF BLOOD CHEMISTRY (4) COPD (chronic obstructive pulmonary disease) Assessment/Plan: -Pulm consult -CXR shows moderate bilateral pleural effusion with compressive atelectasis -O2 via NC -keep SpO2 >90% Code(s): J44.9 - CHRONIC OBSTRUCTIVE PULMONARY DISEASE, UNSPECIFIED (5) Hepatic encephalopathy Assessment/Plan: -Xifaxin -GI consult -Lactulose -Nadolol, Spirinolactone -Awaiting U/[place] abdomen for ascitis -Check Ammonia levels Code(s): K72.90 - HEPATIC FAILURE, UNSPECIFIED WITHOUT COMA (6) Type II diabetes mellitus, uncontrolled Assessment/Plan: -BGM ACHS -ISS -Levemir -HgA1c 5.5 Code(s): E11.65 - TYPE 2 DIABETES MELLITUS WITH HYPERGLYCEMIA (7) Pancytopenia Assessment/Plan: -Hematology consult -Monitor daily labs -Transfuse for Hg<7.0 to avoid fluid overload Code(s): D61.818 - OTHER PANCYTOPENIA
--- NOTE | 2019-05-28 11:56 | CONS ---
DATE OF CONSULTATION: 05/28/2019 PULMONARY CONSULTATION REFERRING PHYSICIAN: Nidhi Vargas M.D. HISTORY OF PRESENT ILLNESS: The patient is a 74-year-old white male, resident of [facility] with a past medical history significant insulin dependent diabetes mellitus, hepatic encephalopathy, liver cirrhosis, ETOH abuse, esophageal varices status post esophageal banding, COPD, hypertension, admitted to [facility] with complaint of 3-week history of increasing shortness of breath, dyspnea on exertion, increase in abdominal girth. Patient also noticed increasing lower extremity edema. Patient apparently is only able to ambulate a couple of feet without developing before feeling shortness of breath. He has a cough which his nonproductive. Of note is the patient has history of tobacco use, approximately 2 packs a day for many years, quit a couple years ago. 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 He denies any history of recent DVT or PE in the past. PAST MEDICAL HISTORY: Again includes insulin dependent diabetes mellitus, hepatic encephalopathy, liver cirrhosis, esophageal varices, congestive heart failure, COPD, hypertension. SOCIAL HISTORY: Again, history of tobacco use 2 packs a day for many years. Said he stopped a couple years ago. History of ETOH. 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 REVIEW OF SYSTEMS: Positive orthopnea. Positive dyspnea. Positive cough. No hemoptysis. No chest pain. No palpitations. Positive increasing abdominal girth. Positive increase in lower extremity edema. CURRENT MEDICATIONS: Include Flomax, lactulose, rifaximin, heparin, Corgard, Miralax, NovoLog, Levemir, Feosol, Aldactone, and vitamin C. PHYSICAL EXAMINATION: General: The patient is a well-developed, well-nourished male, awake, alert, currently in no acute distress. He is currently afebrile. Vital Signs: Blood pressure 127/53, respiratory rate 20, O2 saturation 98% on 4 L nasal cannula. Of note is the patient states that he is on oxygen at the correction. HEENT: Normocephalic, atraumatic. Neck: Supple. Heart: Regular S1, S2. Chest: Diminished breath sounds bilaterally. Abdomen: Distended, positive ascites. Extremities: Bilateral lower extremity edema. LABORATORY: BUN 40, creatinine 1.4, bilirubin is 2.4, INR is 1.3, PT is 15.4. Chest x-ray, moderate right pleural effusion with compressive atelectasis. Other labs : WBC is 2.7, hemoglobin 8.8, hematocrit 26.2 with a platelet count of 62,000. BNP is 4235. Creatinine 1.4. Venous blood gas: 7.32, pCO2 of 51, pO2 of less than 40 , bicarbonate of 26. IMPRESSION: 1. Dyspnea, likely secondary to volume overload. 2. Acute hypercapnic respiratory failure secondary to above, as well as hepatic encephalopathy. 3. Acute and chronic congestive heart failure. 4. Chronic obstructive pulmonary disease. 5. Diabetes. 6. History of cirrhosis with esophageal varices status post banding. 7. Acute kidney injury. 8. Pancytopenia. PLAN: Diuretics, supplemental O2, daily weights, check arterial blood gases, monitor electrolytes, renal function, check ammonia level, continue lactulose, rifaximin , monitor hemoglobin and hematocrit, follow up chest x-rays, also CT scan of the chest. LA COLLAZO M.D. [id number] MTDD
[2019-05-28] MEDS: FUROSEMIDE 40 MG/4 ML INJECTABLE VIAL IVPUSH SCH (12:37)
--- NOTE | 2019-05-28 13:08 | CONSULT ---
Consult - text type - Consultation Consultation Note: Renal consult for elevated Cr/CKD This is a 74 year old gentleman with history of Alcoholic cirrhosis, hypertension, CHF presented with shortness of breath and increased abdominal girth and admitted for worsening ascities Cr range on prior admission in 10/2018 was 1.9-2.4. Denies any history of CKD. Denies any NSAID use. No recent contrast exposure. Reports making urine w/o difficulty. No flank pain, dysuria, frequency or urgency. No hematuira. On Lasix and aldactone for management of ascities. PMhx: as above Allergies: NKDA Family Hx: NC Social Hx: No T/A/D ROS: as per HPI, all other pertinent ros negative Home Medications Medication Instructions Recorded Omeprazole 20 mg PO DAILY 11/05/18 Tamsulosin HCl [Flomax] 0.4 mg PO DAILY 11/05/18 Rifaximin [Xifaxan -] 550 mg PO BID #60 tablet 11/08/18 Lactulose 10 gm PO BID 03/28/19 Spironolactone 25 mg PO DAILY 03/28/19 Insulin Sliding Scale [Novolog 1 vial SQ ACHS units 04/05/19 Vial Sliding Scale -] Nadolol [Corgard -] 40 mg PO DAILY tablet 04/05/19 Polyethylene Glycol 3350 [Miralax 34 gm PO BID bottle 04/05/19 119 gm Btl -] Acetaminophen [Tylenol] 650 mg PO TID 05/27/19 Ascorbate Calcium [Vitamin C] 500 mg PO DAILY 05/27/19 Calcium (Oyster Shell) [Os-Gerhard 500 mg PO DAILY 05/27/19 500Mg -] Dextran 70/Hypromellose/Pf 1 each OP DAILY 05/27/19 [Artificial Tears Drops] Ferrous Sulfate 325 mg PO DAILY 05/27/19 Insulin (Levemir) [Levemir Vial] 25 unit SQ AM 05/27/19 Vital Signs Temperature 98.4 F 05/28/19 02:00 Pulse Rate 70 05/28/19 06:00 Respiratory Rate 20 05/28/19 06:00 Blood Pressure 127/53 L 05/28/19 06:00 O2 Sat by Pulse Oximetry (%) 98 05/28/19 04:19 Intake & Output 05/25/19 05/26/19 05/27/19 05/28/19 23:59 23:59 23:59 23:59 Intake Total 100 350 Output Total 200 Balance 100 150 Weight 129.274 kg 132.052 kg NAD awake and alert neck supple RRR Dec BS at lung bases distended abd + edema in LE no bladder distension CBC, BMP 05/28/19 05:47 05/28/19 05:47 Current Medications Ascorbic Acid (Vitamin C -) 500 mg PO DAILY [facility] Last Admin: 05/28/19 11:06 Dose: 500 mg Calcium Carbonate (Os-Gerhard 500mg -) 500 mg PO DAILY [facility] Last Admin: 05/28/19 11:06 Dose: 500 mg Ferrous Sulfate (Feosol -) 325 mg PO DAILY [facility] Last Admin: 05/28/19 11:06 Dose: 325 mg Furosemide (Lasix Injection -) 40 mg IVPUSH DAILY [facility] Last Admin: 05/28/19 12:37 Dose: 40 mg Heparin Sodium (Porcine) (Heparin -) 5,000 unit SQ BID [facility] Last Admin: 05/28/19 11:06 Dose: 5,000 unit Insulin Aspart (Novolog Vial Sliding Scale -) 1 vial SQ [facility]; Protocol Last Admin: 05/28/19 12:34 Dose: 4 units Insulin Detemir (Levemir Vial) 25 units SQ AM [facility] Last Admin: 05/28/19 06:24 Dose: Not Given Lactulose (Cephulac (Oral Use)) 10 gm PO BID [facility] Last Admin: 05/28/19 11:05 Dose: 10 gm Nadolol (Corgard -) 40 mg PO DAILY [facility] Last Admin: 05/28/19 11:48 Dose: 40 mg Polyethylene Glycol (Miralax (For Daily Use) -) 17 gm PO BID [facility] Rifaximin (Xifaxan -) 550 mg PO BID [facility] Last Admin: 05/28/19 11:07 Dose: 550 mg Spironolactone (Aldactone -) 25 mg PO DAILY [facility] Last Admin: 05/28/19 11:05 Dose: 25 mg Tamsulosin HCl (Flomax -) 0.4 mg PO DAILY@0830 [facility] Last Admin: 05/28/19 11:04 Dose: 0.4 mg 74 year old gentleman with history of Alcoholic cirrhosis, hypertension, CHF presented with shortness of breath and increased abdominal girth and admitted for worsening ascities. 1. CKD vs. SOPHIE from fluid shifts 2. Alcoholic cirrhosis with ascities 3. Anemia 4. Leukopenia/thrombocytopenia 5. CHF 6. Hypertension Continue Lasix IV and Aldactone PO for management of ascities. Trend renal function and electrolytes daily while on diuretics would avoid nephrotoxins such as NSAIDs and IV contrast Low salt diet. No significant electrolyte or acid/base disturbances noted Heme following for pancytopenia Thank you Will follow Ang Sanchez DO
[2019-05-28 13:46] LABS: ARTERIAL BLOOD GAS PCO2 44.3 mmHg (35-45); ARTERIAL BLOOD GAS PO2 110 mmHg (80-100); ARTERIAL BLOOD GAS pH 7.34 (7.35-7.45)
[2019-05-28 13:47] LABS: ALLENS TEST POSITIVE; ARTERIAL BLD GAS O2 SATURATION 98.5 % (95-98); ARTERIAL BLOOD GAS BASE EXCESS -1.3 meq/l (-2-2)
--- NOTE | 2019-05-28 13:53 | PN ---
Progress Note, Physician Chief Complaint: no change tele nsr, periods of atrial tachycardia. History of Present Illness: 74 y/o M with a history of NIDDM, liver cirrhosis with varices s/p variceal banding, hepatic encephalopathy, CHF, COPD, HTN, admitted with worsening edema, ascites and sob for one month. + orthopnea. No chest pain, palpitations, dizziness or syncope. Exercise tolerance is very poor. ECG without changes, noted pancytopenia, ascites, coagulopathy, and elevated troponin. - Current Medication List Current Medications: Active Medications Ascorbic Acid (Vitamin C -) 500 mg PO DAILY [facility] Last Admin: 05/28/19 11:06 Dose: 500 mg Calcium Carbonate (Os-Gerhard 500mg -) 500 mg PO DAILY [facility] Last Admin: 05/28/19 11:06 Dose: 500 mg Ferrous Sulfate (Feosol -) 325 mg PO DAILY [facility] Last Admin: 05/28/19 11:06 Dose: 325 mg Furosemide (Lasix Injection -) 40 mg IVPUSH DAILY [facility] Last Admin: 05/28/19 12:37 Dose: 40 mg Heparin Sodium (Porcine) (Heparin -) 5,000 unit SQ BID [facility] Last Admin: 05/28/19 11:06 Dose: 5,000 unit Insulin Aspart (Novolog Vial Sliding Scale -) 1 vial SQ ACHS [facility]; Protocol Last Admin: 05/28/19 12:34 Dose: 4 units Insulin Detemir (Levemir Vial) 25 units SQ AM [facility] Last Admin: 05/28/19 06:24 Dose: Not Given Lactulose (Cephulac (Oral Use)) 10 gm PO BID [facility] Last Admin: 05/28/19 11:05 Dose: 10 gm Nadolol (Corgard -) 40 mg PO DAILY [facility] Last Admin: 05/28/19 11:48 Dose: 40 mg Polyethylene Glycol (Miralax (For Daily Use) -) 17 gm PO BID [facility] Rifaximin (Xifaxan -) 550 mg PO BID [facility] Last Admin: 05/28/19 11:07 Dose: 550 mg Spironolactone (Aldactone -) 25 mg PO DAILY [facility] Last Admin: 05/28/19 11:05 Dose: 25 mg Tamsulosin HCl (Flomax -) 0.4 mg PO DAILY@0830 [facility] Last Admin: 05/28/19 11:04 Dose: 0.4 mg - Objective Vital Signs: Vital Signs Temperature 98.4 F 05/28/19 02:00 Pulse Rate 70 05/28/19 06:00 Respiratory Rate 20 05/28/19 06:00 Blood Pressure 127/53 L 05/28/19 06:00 O2 Sat by Pulse Oximetry (%) 98 05/28/19 04:19 Constitutional: Yes: No Distress, Calm Eyes: Yes: EOM Intact HENT: Yes: Normocephalic Neck: Yes: Trachea Midline Cardiovascular: Yes: Regular Rate and Rhythm Respiratory: Yes: Dullness Gastrointestinal: Yes: Soft, Abdomen, Obese, Other (ascites) Extremities: Yes: WNL Edema: Yes Edema: LLE: 3+, RLE: 3+ Peripheral Pulses WNL: Yes Labs: CBC, BMP 05/28/19 05:47 05/28/19 05:47 INR, PTT INR 1.30 (0.83-1.09) H 05/27/19 11:05 Assessment/Plan 74 y/o M with a history of NIDDM, 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 + orthopnea. No chest pain, palpitations, dizziness or syncope. Exercise tolerance is very poor. ECG without changes, noted pancytopenia, ascites, coagulopathy, and elevated troponin. Plan -diurese per GI/liver, will need IV lasix and spironolactone, follow creat and K -not a candidate for ischemia workup -echo pending -no AC or antiplatelets due to coagulopathy and liver disease.
[2019-05-28] MEDS ORDERED: PT OWN MED DRAWER 7, Y5N ONE (22:37)
[2019-05-28] MEDS: POLYETHYLENE GLYCOL 3350 119 GM BTL PO SCH (22:50)
[2019-05-29] MEDS: INSULIN (LEVEMIR) 100 UNITS/ML UNITS SQ SCH (06:40)
[2019-05-29] MEDS: INSULIN SLIDING SCALE (NOVOLOG) 1 VIAL SQ SCH ×4 (06:41→21:07)
[2019-05-29 07:31] LABS: EOS % 11.2 % (0-4.5); HEMATOCRIT 28.4 % (35.4-49); HEMOGLOBIN 9.6 GM/dL (11.7-16.9); LYMPH % 30.7 % (8-40); MCH 34.8 pg (25.7-33.7); MCHC 33.7 g/dl (32.0-35.9); MEAN CELL VOLUME 103.1 fl (80-96); MEAN PLT VOLUME 10.1 fl (7.5-11.1); MONO % 10.3 % (3.8-10.2); NEUT % 46.8 % (42.8-82.8); PLATELET COUNT 76 K/MM3 (134-434); RBC 2.76 M/mm3 (4.00-5.60); RDW 16.1 % (11.9-15.9); WHITE BLOOD COUNT 3.4 K/mm3 (4.0-10.0)
--- NOTE | 2019-05-29 07:31 | PN.GI ---
GI Progress Note Subjective: Patient denies abdominal pain, nausea, vomiting, diarrhea, constipation. States noticing minor rectal bleeding when wiping. Abdominal US shows atrophic cirrhotic liver with a 3.4 x 2.6 x 2.9cm lobulated left hepatic lobe hypoechoic mass spaces for neoplasm such as HCC. - Objective Vital Signs: Vital Signs Temperature 97.5 F L 05/29/19 05:03 Pulse Rate 90 05/29/19 05:03 Respiratory Rate 20 05/29/19 05:03 Blood Pressure 122/50 L 05/29/19 05:03 O2 Sat by Pulse Oximetry (%) 96 05/28/19 21:00 Constitutional: No Distress, Calm Eyes: Yes: Conjunctiva Clear HENT: Yes: Atraumatic Cardiovascular: Yes: Pulse Irregular Respiratory: Yes: Regular, Diminished, On Nasal O2 Gastrointestinal Inspection: Yes: Ascites. No: WNL, Distention, Hernia, Scars, Other ...Auscultate: Yes: Normoactive Bowel Sounds. No: Hyperactive Bowel Sounds, Hypoactive Bowel Sounds, No Bowel Sounds, Other ...Palpate: Yes: Soft. No: Firm/Rigid, Guarding, Hepatomegaly, Mass, Pulsatile Mass, Splenomegaly, Tenderness, Tenderness, Epigastium, Tenderness, Rebound, Other ...Percussion: Yes: Tympanitic. No: Dullness, Fluid Wave, Other Neurological: Yes: Alert, Oriented Psychiatric: Yes: Alert, Oriented Labs: INR, PTT INR 1.30 (0.83-1.09) H 05/27/19 11:05 Active Medications Generic Name Dose Route Start Last Admin Trade Name Ritoq PRN Reason Stop Dose Admin Ascorbic Acid 500 mg 05/28/19 10:00 05/28/19 11:06 Vitamin C - PO 500 mg DAILY [facility] Administration Calcium Carbonate 500 mg 05/28/19 10:00 05/28/19 11:06 Os-Gerhard 500mg - PO 500 mg DAILY [facility] Administration Ferrous Sulfate 325 mg 05/28/19 10:00 05/28/19 11:06 Feosol - PO 325 mg DAILY [facility] Administration Furosemide 40 mg 05/28/19 12:00 05/28/19 12:37 Lasix Injection - IVPUSH 40 mg DAILY [facility] Administration Heparin Sodium (Porcine) 5,000 unit 05/27/19 22:00 05/28/19 22:49 Heparin - SQ 5,000 unit BID [facility] Administration Insulin Aspart 1 vial 05/27/19 17:31 05/29/19 06:41 Novolog Vial Sliding Scale - SQ 2 units ACHS [facility] Administration Protocol Insulin Detemir 25 units 05/28/19 07:00 05/29/19 06:40 Levemir Vial SQ 25 units AM [facility] Administration Lactulose 10 gm 05/27/19 22:00 05/28/19 22:49 Cephulac (Oral Use) PO 10 gm BID [facility] Administration Nadolol 40 mg 05/28/19 10:00 05/28/19 11:48 Corgard - PO 40 mg DAILY [facility] Administration Polyethylene Glycol 17 gm 05/28/19 22:00 05/28/19 22:50 Miralax (For Daily Use) - PO Not Given BID [facility] Rifaximin 550 mg 05/27/19 22:00 05/28/19 22:47 Xifaxan - PO 550 mg BID [facility] Administration Spironolactone 25 mg 05/28/19 10:00 05/28/19 11:05 Aldactone - PO 25 mg DAILY [facility] Administration Tamsulosin HCl 0.4 mg 05/28/19 08:30 05/28/19 11:04 Flomax - PO 0.4 mg DAILY@0830 [facility] Administration Problem List - Problems (1) Cirrhosis of liver Assessment/Plan: >Lactulose, Nadolol, Spironolactone >Abdominal US reviewed >AFP ordered >Abdominal MRI without contrast >Albumin 25% IVPB q12h x 4 doses >Furosemide 40mg IVP q12h AFTER each dose of albumin >Serial CMP to monitor LFTs >daily weight Code(s): K74.60 - UNSPECIFIED CIRRHOSIS OF LIVER (2) Hepatic encephalopathy Assessment/Plan: >Xifaxin, Lactulose >daily weights Code(s): K72.90 - HEPATIC FAILURE, UNSPECIFIED WITHOUT COMA
[2019-05-29 08:22] LABS: ALBUMIN 2.4 g/dl (3.4-5.0); BILIRUBIN,TOTAL 2.2 mg/dL (0.2-1); CALCIUM 8.5 mg/dL (8.5-10.1); CREATININE 1.6 mg/dL (0.55-1.3); MAGNESIUM 2.5 mg/dL (1.8-2.4); PHOSPHOROUS 3.8 mg/dL (2.5-4.9); POTASSIUM 4.8 mmol/L (3.5-5.1); TOT PROT 5.6 g/dl (6.4-8.2)
--- NOTE | 2019-05-29 10:02 | PN ---
Progress Note, Physician Chief Complaint: no change tele nsr, periods of atrial tachycardia. History of Present Illness: 74 y/o M with a history of NIDDM, liver cirrhosis with varices s/p variceal banding, hepatic encephalopathy, CHF, COPD, HTN, admitted with worsening edema, ascites and sob for one month. + orthopnea. No chest pain, palpitations, dizziness or syncope. Exercise tolerance is very poor. ECG without changes, noted pancytopenia, ascites, coagulopathy, and elevated troponin. US shows hepatic mass. awaiting MRI. - Current Medication List Current Medications: Active Medications Albumin Human (Albumin Human 25%) 12.5 gm IVPB Q12H [facility] Stop: 05/30/19 20:01 Ascorbic Acid (Vitamin C -) 500 mg PO DAILY [facility] Last Admin: 05/28/19 11:06 Dose: 500 mg Calcium Carbonate (Os-Gerhard 500mg -) 500 mg PO DAILY [facility] Last Admin: 05/28/19 11:06 Dose: 500 mg Ferrous Sulfate (Feosol -) 325 mg PO DAILY [facility] Last Admin: 05/28/19 11:06 Dose: 325 mg Furosemide (Lasix Injection -) 40 mg IVPUSH DAILY [facility] Last Admin: 05/28/19 12:37 Dose: 40 mg Furosemide (Lasix Injection -) 40 mg IVPUSH Q12H [facility] Stop: 05/30/19 20:16 Heparin Sodium (Porcine) (Heparin -) 5,000 unit SQ BID [facility] Last Admin: 05/28/19 22:49 Dose: 5,000 unit Insulin Aspart (Novolog Vial Sliding Scale -) 1 vial SQ ACHS [facility]; Protocol Last Admin: 05/29/19 06:41 Dose: 2 units Insulin Detemir (Levemir Vial) 25 units SQ AM [facility] Last Admin: 05/29/19 06:40 Dose: 25 units Lactulose (Cephulac (Oral Use)) 10 gm PO BID [facility] Last Admin: 05/28/19 22:49 Dose: 10 gm Nadolol (Corgard -) 40 mg PO DAILY [facility] Last Admin: 05/28/19 11:48 Dose: 40 mg Polyethylene Glycol (Miralax (For Daily Use) -) 17 gm PO BID [facility] Last Admin: 05/28/19 22:50 Dose: Not Given Rifaximin (Xifaxan -) 550 mg PO BID [facility] Last Admin: 05/28/19 22:47 Dose: 550 mg Spironolactone (Aldactone -) 25 mg PO DAILY [facility] Last Admin: 05/28/19 11:05 Dose: 25 mg Tamsulosin HCl (Flomax -) 0.4 mg PO DAILY@0830 [facility] Last Admin: 05/28/19 11:04 Dose: 0.4 mg - Objective Vital Signs: Vital Signs Temperature 97.5 F L 05/29/19 05:03 Pulse Rate 90 05/29/19 05:03 Respiratory Rate 20 05/29/19 05:03 Blood Pressure 122/50 L 05/29/19 05:03 O2 Sat by Pulse Oximetry (%) 96 05/28/19 21:00 Labs: CBC, BMP 05/29/19 06:40 05/29/19 06:40 INR, PTT INR 1.30 (0.83-1.09) H 05/27/19 11:05 Assessment/Plan 74 y/o M with a history of NIDDM, 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 + orthopnea. No chest pain, palpitations, dizziness or syncope. Exercise tolerance is very poor. ECG without changes, noted pancytopenia, ascites, coagulopathy, and elevated troponin. Plan -diurese per GI/liver, will need IV lasix and spironolactone, follow creat and K -not a candidate for ischemia workup -no AC or antiplatelets due to coagulopathy and liver disease. -echo pending, likely diastolic chf, however the fluid overload at present is hepatic failure due to cirrhosis.
[2019-05-29] MEDS: ALBUMIN HUMAN 25% 12.5 GM/50 ML VIAL IVPB SCH ×2 (10:04→20:38)
[2019-05-29] MEDS: TAMSULOSIN HCL 0.4 MG CAP PO SCH (10:06)
[2019-05-29] MEDS: FERROUS SO4 325 MG TABLET (FP) PO SCH (10:06)
[2019-05-29] MEDS: FUROSEMIDE 40 MG/4 ML INJECTABLE VIAL IVPUSH SCH ×3 (10:06→21:15)
[2019-05-29] MEDS: LACTULOSE 20 GM/30 ML UDC (FOR ORAL USE ONLY) PO SCH ×2 (10:06→21:11)
[2019-05-29] MEDS: SPIRONOLACTONE 25 MG TABLET (FP) PO SCH (10:07)
[2019-05-29] MEDS: CALCIUM (OYSTER SHELL) 500 MG TABLET (FP) PO SCH (10:07)
[2019-05-29] MEDS: ASCORBIC ACID 500 MG TABLET (FP) PO SCH (10:07)
[2019-05-29] MEDS: HEPARIN NA (PORCINE) 5,000 UNITS/ML 1ML VIAL SQ SCH ×2 (10:08→21:10)
[2019-05-29] MEDS: RIFAXIMIN 550 MG TABLET (UD) PO SCH ×2 (10:08→21:10)
[2019-05-29] MEDS: NADOLOL 40 MG TABLET (FP) PO SCH (10:08)
[2019-05-29] MEDS: POLYETHYLENE GLYCOL 3350 119 GM BTL PO SCH ×2 (10:20→21:08)
--- NOTE | 2019-05-29 12:51 | PN ---
Progress Note (short form) - Note Progress Note: Still with ABDUL. No CP. No acute events overnight. Intake & Output 05/26/19 05/27/19 05/28/19 05/29/19 23:59 23:59 23:59 23:59 Intake Total 100 750 Output Total 650 Balance 100 100 Weight 285 lb 291 lb 2 oz 291 lb 12.8 oz Last Vital Signs Temp Pulse Resp BP Pulse Ox 98.2 F 88 20 112/76 97 05/29/19 10:00 05/29/19 10:00 05/29/19 10:00 05/29/19 10:00 05/29/19 09:00 Active Medications Albumin Human (Albumin Human 25%) 12.5 gm IVPB Q12H [facility] Stop: 05/30/19 20:01 Last Admin: 05/29/19 10:04 Dose: 12.5 gm Ascorbic Acid (Vitamin C -) 500 mg PO DAILY [facility] Last Admin: 05/29/19 10:07 Dose: 500 mg Calcium Carbonate (Os-Gerhard 500mg -) 500 mg PO DAILY [facility] Last Admin: 05/29/19 10:07 Dose: 500 mg Ferrous Sulfate (Feosol -) 325 mg PO DAILY [facility] Last Admin: 05/29/19 10:06 Dose: 325 mg Furosemide (Lasix Injection -) 40 mg IVPUSH DAILY [facility] Last Admin: 05/29/19 10:06 Dose: 40 mg Furosemide (Lasix Injection -) 40 mg IVPUSH Q12H [facility] Stop: 05/30/19 20:16 Last Admin: 05/29/19 10:09 Dose: Not Given Heparin Sodium (Porcine) (Heparin -) 5,000 unit SQ BID [facility] Last Admin: 05/29/19 10:08 Dose: 5,000 unit Insulin Aspart (Novolog Vial Sliding Scale -) 1 vial SQ ACHS [facility]; Protocol Last Admin: 05/29/19 11:35 Dose: 4 units Insulin Detemir (Levemir Vial) 25 units SQ AM [facility] Last Admin: 05/29/19 06:40 Dose: 25 units Lactulose (Cephulac (Oral Use)) 10 gm PO BID [facility] Last Admin: 05/29/19 10:06 Dose: 10 gm Nadolol (Corgard -) 40 mg PO DAILY [facility] Last Admin: 05/29/19 10:08 Dose: 40 mg Polyethylene Glycol (Miralax (For Daily Use) -) 17 gm PO BID [facility] Last Admin: 05/29/19 10:20 Dose: Not Given Rifaximin (Xifaxan -) 550 mg PO BID [facility] Last Admin: 05/29/19 10:08 Dose: 550 mg Spironolactone (Aldactone -) 25 mg PO DAILY [facility] Last Admin: 05/29/19 10:07 Dose: 25 mg Tamsulosin HCl (Flomax -) 0.4 mg PO DAILY@0830 [facility] Last Admin: 05/29/19 10:06 Dose: 0.4 mg Constitutional: Yes: No Distress Cardiovascular: Yes: Regular Rate and Rhythm Respiratory: Yes: Diminished at the bases Gastrointestinal: Yes: Normal Bowel Sounds, Soft, Abdomen, Obese, Ascites Genitourinary: Yes: WNL Musculoskeletal: Yes: Muscle Weakness Extremities: Yes: WNL Edema: Yes Edema: LLE: 1+, RLE: 1+ Peripheral Pulses WNL: Yes Neurological: Yes: Alert, Oriented Psychiatric: Yes: Alert, Oriented Labs: Laboratory Results - last 24 hr 05/28/19 05/28/19 05/28/19 12:22 13:00 16:32 WBC RBC Hgb Hct MCV MCH MCHC RDW Plt Count MPV Absolute Neuts (auto) Neutrophils % Lymphocytes % Monocytes % Eosinophils % Basophils % Nucleated RBC % Anticoagulation Therapy No Result Required. Puncture Site Right radial ABG pH 7.34 L ABG pCO2 at Pt Temp 44.3 ABG pO2 at Pt Temp 110 H ABG HCO3 23.8 ABG O2 Sat (Measured) 98.5 H ABG O2 Content 12.2 ABG Base Excess -1.3 Leonardo Test Positive O2 Delivery Device No Result Required. Oxygen Flow Rate Yes Vent Mode No Result Required. Vent Rate No Result Required. Mechanical Rate No Result Required. Pressure Support Vent No Result Required. Sodium Potassium Chloride Carbon Dioxide Anion Gap BUN Creatinine Est GFR (CKD-EPI)AfAm Est GFR (CKD-EPI)NonAf POC Glucometer 425 Random Glucose Calcium Phosphorus Magnesium Total Bilirubin AST ALT Alkaline Phosphatase Ammonia 137.60 H Total Protein Albumin 05/28/19 05/29/19 05/29/19 17:42 05:48 06:40 WBC 3.4 L RBC 2.76 L Hgb 9.6 L Hct 28.4 L MCV 103.1 H MCH 34.8 H MCHC 33.7 RDW 16.1 H Plt Count 76 L D MPV 10.1 Absolute Neuts (auto) 1.6 Neutrophils % 46.8 Lymphocytes % 30.7 D Monocytes % 10.3 H Eosinophils % 11.2 H Basophils % 1.0 Nucleated RBC % 0 Anticoagulation Therapy Puncture Site ABG pH ABG pCO2 at Pt Temp ABG pO2 at Pt Temp ABG HCO3 ABG O2 Sat (Measured) ABG O2 Content ABG Base Excess Leonardo Test O2 Delivery Device Oxygen Flow Rate Vent Mode Vent Rate Mechanical Rate Pressure Support Vent Sodium Potassium Chloride Carbon Dioxide Anion Gap BUN Creatinine Est GFR (CKD-EPI)AfAm Est GFR (CKD-EPI)NonAf POC Glucometer 320 237 Random Glucose Calcium Phosphorus Magnesium Total Bilirubin AST ALT Alkaline Phosphatase Ammonia Total Protein Albumin 05/29/19 05/29/19 06:40 11:30 WBC RBC Hgb Hct MCV MCH MCHC RDW Plt Count MPV Absolute Neuts (auto) Neutrophils % Lymphocytes % Monocytes % Eosinophils % Basophils % Nucleated RBC % Anticoagulation Therapy Puncture Site ABG pH ABG pCO2 at Pt Temp ABG pO2 at Pt Temp ABG HCO3 ABG O2 Sat (Measured) ABG O2 Content ABG Base Excess Leonardo Test O2 Delivery Device Oxygen Flow Rate Vent Mode Vent Rate Mechanical Rate Pressure Support Vent Sodium 139 Potassium 4.8 Chloride 107 Carbon Dioxide 28 Anion Gap 4 L BUN 44.0 H Creatinine 1.6 H Est GFR (CKD-EPI)AfAm 48.81 Est GFR (CKD-EPI)NonAf 42.11 POC Glucometer 273 Random Glucose 265 H Calcium 8.5 Phosphorus 3.8 Magnesium 2.5 H Total Bilirubin 2.2 H AST 48 H ALT 42 Alkaline Phosphatase 284 H Ammonia Total Protein 5.6 L Albumin 2.4 L Problem List - Problems (1) SOPHIE (acute kidney injury) Code(s): N17.9 - ACUTE KIDNEY FAILURE, UNSPECIFIED (2) CHF (congestive heart failure) Code(s): I50.9 - HEART FAILURE, UNSPECIFIED Qualifiers: Heart failure type: unspecified Heart failure chronicity: acute on chronic Qualified Code(s): I50.9 - Heart failure, unspecified (3) Pancytopenia Code(s): D61.818 - OTHER PANCYTOPENIA (4) Acute renal failure (ARF) Code(s): N17.9 - ACUTE KIDNEY FAILURE, UNSPECIFIED (5) Altered mental status Code(s): R41.82 - ALTERED MENTAL STATUS, UNSPECIFIED Qualifiers: Altered mental status type: disorientation Qualified Code(s): R41.0 - Disorientation, unspecified (6) Anemia Code(s): D64.9 - ANEMIA, UNSPECIFIED (7) COPD (chronic obstructive pulmonary disease) Code(s): J44.9 - CHRONIC OBSTRUCTIVE PULMONARY DISEASE, UNSPECIFIED (8) Chronic systolic congestive heart failure Code(s): I50.22 - CHRONIC SYSTOLIC (CONGESTIVE) HEART FAILURE (9) Cirrhosis of liver Code(s): K74.60 - UNSPECIFIED CIRRHOSIS OF LIVER (10) Esophageal varices Code(s): I85.00 - ESOPHAGEAL VARICES WITHOUT BLEEDING (11) Hepatic encephalopathy Code(s): K72.90 - HEPATIC FAILURE, UNSPECIFIED WITHOUT COMA (12) Hypoxia Code(s): R09.02 - HYPOXEMIA (13) Acute on chronic respiratory failure with hypoxia and hypercapnia Code(s): J96.21 - ACUTE AND CHRONIC RESPIRATORY FAILURE WITH HYPOXIA; J96.22 - ACUTE AND CHRONIC RESPIRATORY FAILURE WITH HYPERCAPNIA IMP DYSPNEA CHF ACUTE ON CHRONIC HYPOXEMIC/HYPERCAPNEIC RESPIRATORY FAILURE VOLUME OVERLOAD ASCITES COPD O2 DEPENDENT PLEURAL EFFUSION HEPATIC ENCEPHALOPATHY DM CIRRHOSIS WITH ESOPHAGEAL VARICES S/P BANDING PANCYTOPENIA SOPHIE H/O ETOH PLAN DIURETICS O2 DAILY WT MONITOR LYTES,RENAL FUNCTION MONITOR H+H MRI ORDERED Dr Lazaro
--- NOTE | 2019-05-29 12:55 | PN ---
Progress Note (short form) - Note Progress Note: Renal follow up for SOPHIE/CKD Seen and examined at the bedside awake and alert continues to have sob when laying down legs remain swollen making urine Vital Signs Temperature 98.2 F 05/29/19 10:00 Pulse Rate 88 05/29/19 10:00 Respiratory Rate 20 05/29/19 10:00 Blood Pressure 112/76 05/29/19 10:00 O2 Sat by Pulse Oximetry (%) 97 05/29/19 09:00 Intake & Output 05/26/19 05/27/19 05/28/19 05/29/19 23:59 23:59 23:59 23:59 Intake Total 100 750 Output Total 650 Balance 100 100 Weight 129.274 kg 132.052 kg 132.358 kg NAD awake and alert neck supple RRR CTA + abd ascities + LE edema CBC, BMP 05/29/19 06:40 05/29/19 06:40 Current Medications Albumin Human (Albumin Human 25%) 12.5 gm IVPB Q12H [facility] Stop: 05/30/19 20:01 Last Admin: 05/29/19 10:04 Dose: 12.5 gm Ascorbic Acid (Vitamin C -) 500 mg PO DAILY [facility] Last Admin: 05/29/19 10:07 Dose: 500 mg Calcium Carbonate (Os-Gerhard 500mg -) 500 mg PO DAILY [facility] Last Admin: 05/29/19 10:07 Dose: 500 mg Ferrous Sulfate (Feosol -) 325 mg PO DAILY [facility] Last Admin: 05/29/19 10:06 Dose: 325 mg Furosemide (Lasix Injection -) 40 mg IVPUSH DAILY [facility] Last Admin: 05/29/19 10:06 Dose: 40 mg Furosemide (Lasix Injection -) 40 mg IVPUSH Q12H [facility] Stop: 05/30/19 20:16 Last Admin: 05/29/19 10:09 Dose: Not Given Heparin Sodium (Porcine) (Heparin -) 5,000 unit SQ BID [facility] Last Admin: 05/29/19 10:08 Dose: 5,000 unit Insulin Aspart (Novolog Vial Sliding Scale -) 1 vial SQ ACHS [facility]; Protocol Last Admin: 05/29/19 11:35 Dose: 4 units Insulin Detemir (Levemir Vial) 25 units SQ AM [facility] Last Admin: 05/29/19 06:40 Dose: 25 units Lactulose (Cephulac (Oral Use)) 10 gm PO BID [facility] Last Admin: 05/29/19 10:06 Dose: 10 gm Nadolol (Corgard -) 40 mg PO DAILY [facility] Last Admin: 05/29/19 10:08 Dose: 40 mg Polyethylene Glycol (Miralax (For Daily Use) -) 17 gm PO BID [facility] Last Admin: 05/29/19 10:20 Dose: Not Given Rifaximin (Xifaxan -) 550 mg PO BID [facility] Last Admin: 05/29/19 10:08 Dose: 550 mg Spironolactone (Aldactone -) 25 mg PO DAILY [facility] Last Admin: 05/29/19 10:07 Dose: 25 mg Tamsulosin HCl (Flomax -) 0.4 mg PO DAILY@0830 [facility] Last Admin: 05/29/19 10:06 Dose: 0.4 mg 74 year old gentleman with history of Alcoholic cirrhosis, hypertension, CHF presented with shortness of breath and increased abdominal girth and admitted for worsening ascities. 1. CKD vs. SOPHIE from fluid shifts 2. Alcoholic cirrhosis with ascities 3. Anemia 4. Leukopenia/thrombocytopenia 5. CHF 6. Hypertension Agree with increasing Lasix to BID Continue Aldactone Cr noted to have rise to 1.6 but pt still with significant volume overload and will warrant continued diuretics Trend renal function and electrolytes daily Ang Sanchez DO
--- NOTE | 2019-05-29 13:42 | PN ---
Progress Note, Physician Chief Complaint: patient seen and examined still for orthopnea and SOB on iv lasix and albumin - Current Medication List Current Medications: Active Medications Albumin Human (Albumin Human 25%) 12.5 gm IVPB Q12H [facility] Stop: 05/30/19 20:01 Last Admin: 05/29/19 10:04 Dose: 12.5 gm Ascorbic Acid (Vitamin C -) 500 mg PO DAILY [facility] Last Admin: 05/29/19 10:07 Dose: 500 mg Calcium Carbonate (Os-Gerhard 500mg -) 500 mg PO DAILY [facility] Last Admin: 05/29/19 10:07 Dose: 500 mg Ferrous Sulfate (Feosol -) 325 mg PO DAILY [facility] Last Admin: 05/29/19 10:06 Dose: 325 mg Furosemide (Lasix Injection -) 40 mg IVPUSH DAILY [facility] Last Admin: 05/29/19 10:06 Dose: 40 mg Furosemide (Lasix Injection -) 40 mg IVPUSH Q12H [facility] Stop: 05/30/19 20:16 Last Admin: 05/29/19 10:09 Dose: Not Given Heparin Sodium (Porcine) (Heparin -) 5,000 unit SQ BID [facility] Last Admin: 05/29/19 10:08 Dose: 5,000 unit Insulin Aspart (Novolog Vial Sliding Scale -) 1 vial SQ ACHS [facility]; Protocol Last Admin: 05/29/19 11:35 Dose: 4 units Insulin Detemir (Levemir Vial) 25 units SQ AM [facility] Last Admin: 05/29/19 06:40 Dose: 25 units Lactulose (Cephulac (Oral Use)) 10 gm PO BID [facility] Last Admin: 05/29/19 10:06 Dose: 10 gm Nadolol (Corgard -) 40 mg PO DAILY [facility] Last Admin: 05/29/19 10:08 Dose: 40 mg Polyethylene Glycol (Miralax (For Daily Use) -) 17 gm PO BID [facility] Last Admin: 05/29/19 10:20 Dose: Not Given Rifaximin (Xifaxan -) 550 mg PO BID [facility] Last Admin: 05/29/19 10:08 Dose: 550 mg Spironolactone (Aldactone -) 25 mg PO DAILY [facility] Last Admin: 05/29/19 10:07 Dose: 25 mg Tamsulosin HCl (Flomax -) 0.4 mg PO DAILY@0830 [facility] Last Admin: 05/29/19 10:06 Dose: 0.4 mg - Objective Vital Signs: Vital Signs Temperature 98.2 F 05/29/19 10:00 Pulse Rate 88 05/29/19 10:00 Respiratory Rate 20 05/29/19 10:00 Blood Pressure 112/76 05/29/19 10:00 O2 Sat by Pulse Oximetry (%) 97 05/29/19 09:00 Constitutional: Yes: Calm, Pallor Eyes: Yes: Sclera Icterus Cardiovascular: Yes: Regular Rate and Rhythm, S1, S2 Respiratory: Yes: Diminished Gastrointestinal: Yes: Ascites, Distention Edema: Yes Labs: CBC, BMP 05/29/19 06:40 05/29/19 06:40 INR, PTT INR 1.30 (0.83-1.09) H 05/27/19 11:05 Problem List - Problems (1) CHF (congestive heart failure) Assessment/Plan: iv lasix with albumi echo ro look for diatolic heart failure Code(s): I50.9 - HEART FAILURE, UNSPECIFIED Qualifiers: Heart failure type: unspecified Heart failure chronicity: acute on chronic Qualified Code(s): I50.9 - Heart failure, unspecified (2) Ascites Assessment/Plan: iv lasix and albumin Code(s): R18.8 - OTHER ASCITES (3) Cirrhosis of liver Assessment/Plan: aldactone ,nadolol,rifaximin, Code(s): K74.60 - UNSPECIFIED CIRRHOSIS OF LIVER (4) Type II diabetes mellitus, uncontrolled Assessment/Plan: insulin and bgm Code(s): E11.65 - TYPE 2 DIABETES MELLITUS WITH HYPERGLYCEMIA (5) Acquired thrombocytopenia Assessment/Plan: secondary to cirrhosis Code(s): D69.59 - OTHER SECONDARY THROMBOCYTOPENIA
--- NOTE | 2019-05-29 16:03 | ECHO ---
Name: JOSE WARD Exam:Adult Echocardiogram Study Date: 05/29/2019 02:40 PM Age: 74 yrs Reason For Study: DIONTENOELLE Height: 74 in Weight: 291 lb BSA: 2.5 m2 MMode/2D Measurements & Calculations IVSd: 0.96 cm Ao root diam: 2.8 cm LVIDd: 5.8 cm LA dimension: 3.9 cm LVIDs: 4.5 cm LVPWd: 0.95 cm EDV(Teich): 167.8 ml LVOT diam: 2.1 cm ESV(Teich): 90.9 ml RV S Roman: 10.0 cm/sec Doppler Measurements & Calculations MV E max roman: 86.9 cm/sec Ao V2 max: 259.6 cm/sec MV A max roman: 28.1 cm/sec Ao max P.0 mmHg MV E/A: 3.1 Ao V2 mean: 171.4 cm/sec MV dec time: 0.20 sec Ao mean P.3 mmHg Ao V2 VTI: 58.5 cm KASSIDY(I,D): 0.85 cm2 AI P1/2t: 422.0 msec KASSIDY(V,D): 0.94 cm2 AI max roman: 254.9 cm/sec LV V1 max P.9 mmHg AI max P.0 mmHg LV V1 mean P.91 mmHg AI dec slope: 176.9 cm/sec2 LV V1 max: 68.3 cm/sec LV V1 mean: 43.8 cm/sec LV V1 VTI: 14.0 cm MR max roman: 306.9 cm/sec SV(LVOT): 50.0 ml MR max P.3 mmHg TR max roman: 300.3 cm/sec Med Peak E' Roman: 2.6 cm/sec TR max P.4 mmHg Med E/e': 33.3 Lat Peak E' Roman: 5.5 cm/sec Lat E/e': 15.9 Procedure A complete two-dimensional transthoracic echocardiogram was performed (2D, M-mode, Doppler and color flow Doppler). Left Ventricle The left ventricle is normal in size. Left ventricular systolic function is moderate to severely redu nichelle. Ejection Fraction = 35-40%. There is moderate to severe global hypokinesis of the left ventricle. Right Ventricle The right ventricle is mildly dilated. The right ventricular systolic function is mildly reduced. Atria The left atrium is mildly dilated. The right atrium is mildly dilated. Mitral Valve There is moderate mitral regurgitation. Tricuspid Valve There is moderate to severe tricuspid regurgitation. Right ventricular systolic pressure is elevated at 30- 40mmHg. Aortic Valve Mild to moderate valvular aortic stenosis. Trace aortic regurgitation. Pulmonic Valve There is no pulmonic valvular regurgitation. Great Vessels The aortic root is normal size. Pericardium/Pleura There is no pericardial effusion. Interpretation Summary Left ventricular systolic function is moderate to severely reduced. The left ventricle is normal in size. There is moderate to severe global hypokinesis of the left ventricle. The right ventricle is mildly dilated. The right ventricular systolic function is mildly reduced. The left atrium is mildly dilated. The right atrium is mildly dilated. There is moderate mitral regurgitation. There is moderate to severe tricuspid regurgitation. Right ventricular systolic pressure is elevated at 30-40mmHg. Trace aortic regurgitation. Mild to moderate valvular aortic stenosis. MD Wilfrid Workman 05/29/2019 04:03 PM
[2019-05-30] MEDS ORDERED: INSULIN (NOVOLOG) ASPART 100 UNITS/ML 10ML VIAL ONE (06:00)
[2019-05-30] MEDS: INSULIN (LEVEMIR) 100 UNITS/ML UNITS SQ SCH (06:08)
[2019-05-30] MEDS: INSULIN SLIDING SCALE (NOVOLOG) 1 VIAL SQ SCH ×4 (06:08→21:33)
[2019-05-30 07:38] LABS: BASO % 1.4 % (0-2.0); EOS % 10.4 % (0-4.5); HEMATOCRIT 29.3 % (35.4-49); LYMPH % 32.5 % (8-40); MCH 34.8 pg (25.7-33.7); MCHC 34.1 g/dl (32.0-35.9); MEAN CELL VOLUME 102.2 fl (80-96); NEUT % 45.7 % (42.8-82.8); PLATELET COUNT 73 K/MM3 (134-434); RBC 2.86 M/mm3 (4.00-5.60); RDW 15.9 % (11.9-15.9); WHITE BLOOD COUNT 3.2 K/mm3 (4.0-10.0)
--- NOTE | 2019-05-30 07:45 | PN.GI ---
GI Progress Note Subjective: Patient denies abdominal pain, nausea, vomiting. No reports of melena. Edema in lower extremities improving. AFP negative. - Objective Vital Signs: Vital Signs Temperature 97.5 F L 05/30/19 06:00 Pulse Rate 84 05/30/19 06:00 Respiratory Rate 20 05/30/19 06:00 Blood Pressure 126/68 05/30/19 06:00 O2 Sat by Pulse Oximetry (%) 98 05/29/19 21:00 Constitutional: No Distress, Calm Eyes: Yes: Conjunctiva Clear HENT: Yes: Atraumatic Cardiovascular: Yes: Regular Rate and Rhythm Respiratory: Yes: Regular, Diminished, On Nasal O2 Gastrointestinal Inspection: Yes: Ascites. No: WNL, Distention, Hernia, Scars, Other ...Auscultate: Yes: Hypoactive Bowel Sounds. No: Normoactive Bowel Sounds, Hyperactive Bowel Sounds, No Bowel Sounds, Other ...Palpate: Yes: Soft. No: Firm/Rigid, Guarding, Hepatomegaly, Mass, Pulsatile Mass, Splenomegaly, Tenderness, Tenderness, Epigastium, Tenderness, Rebound, Other ...Percussion: Yes: Dullness. No: Fluid Wave, Tympanitic, Other Neurological: Yes: Alert, Oriented Psychiatric: Yes: Alert, Oriented Labs: INR, PTT INR 1.30 (0.83-1.09) H 05/27/19 11:05 Home Medication List Medication Instructions Recorded Confirmed Type Omeprazole 20 mg PO DAILY 11/05/18 05/27/19 History Tamsulosin HCl [Flomax] 0.4 mg PO DAILY 11/05/18 05/27/19 History Lactulose 10 gm PO BID 03/28/19 05/27/19 History Spironolactone 25 mg PO DAILY 03/28/19 05/27/19 History Acetaminophen [Tylenol] 650 mg PO TID 05/27/19 05/27/19 History Ascorbate Calcium [Vitamin C] 500 mg PO DAILY 05/27/19 05/27/19 History Calcium (Oyster Shell) [Os-Gerhard 500 mg PO DAILY 05/27/19 05/27/19 History 500Mg -] Dextran 70/Hypromellose/Pf 1 each OP DAILY 05/27/19 05/27/19 History [Artificial Tears Drops] Ferrous Sulfate 325 mg PO DAILY 05/27/19 05/27/19 History Insulin (Levemir) [Levemir Vial] 25 unit SQ AM 05/27/19 05/27/19 History Active Medications Generic Name Dose Route Start Last Admin Trade Name Alfredo PRN Reason Stop Dose Admin Albumin Human 12.5 gm 05/29/19 08:00 05/29/19 20:38 Albumin Human 25% IVPB 05/30/19 20:01 12.5 gm Q12H [facility] Administration Ascorbic Acid 500 mg 05/28/19 10:00 05/29/19 10:07 Vitamin C - PO 500 mg DAILY [facility] Administration Calcium Carbonate 500 mg 05/28/19 10:00 05/29/19 10:07 Os-Gerhard 500mg - PO 500 mg DAILY [facility] Administration Ferrous Sulfate 325 mg 05/28/19 10:00 05/29/19 10:06 Feosol - PO 325 mg DAILY [facility] Administration Furosemide 40 mg 05/28/19 12:00 05/29/19 10:06 Lasix Injection - IVPUSH 40 mg DAILY [facility] Administration Furosemide 40 mg 05/29/19 08:15 05/29/19 21:15 Lasix Injection - IVPUSH 05/30/19 20:16 40 mg Q12H [facility] Administration Heparin Sodium (Porcine) 5,000 unit 05/27/19 22:00 05/29/19 21:10 Heparin - SQ 5,000 unit BID [facility] Administration Insulin Aspart 1 vial 05/27/19 17:31 05/30/19 06:08 Novolog Vial Sliding Scale - SQ 2 units ACHS [facility] Administration Protocol Insulin Detemir 25 units 05/28/19 07:00 05/30/19 06:08 Levemir Vial SQ 25 units AM [facility] Administration Lactulose 10 gm 05/27/19 22:00 05/29/19 21:11 Cephulac (Oral Use) PO 10 gm BID [facility] Administration Nadolol 40 mg 05/28/19 10:00 05/29/19 10:08 Corgard - PO 40 mg DAILY [facility] Administration Polyethylene Glycol 17 gm 05/28/19 22:00 05/29/19 21:08 Miralax (For Daily Use) - PO Not Given BID [facility] Rifaximin 550 mg 05/27/19 22:00 05/29/19 21:10 Xifaxan - PO 550 mg BID [facility] Administration Spironolactone 25 mg 05/28/19 10:00 05/29/19 10:07 Aldactone - PO 25 mg DAILY [facility] Administration Tamsulosin HCl 0.4 mg 05/28/19 08:30 05/29/19 10:06 Flomax - PO 0.4 mg DAILY@0830 [facility] Administration Problem List - Problems (1) Cirrhosis of liver Assessment/Plan: >Lactulose, Nadolol, Spironolactone >Abdominal US reviewed >AFP neg >Abdominal MRI without contrast >Albumin 25% IVPB q12h x 4 doses >Furosemide 40mg IVP q12h AFTER each dose of albumin >Serial CMP to monitor LFTs >daily weight Code(s): K74.60 - UNSPECIFIED CIRRHOSIS OF LIVER (2) Hepatic encephalopathy Assessment/Plan: >Xifaxin, Lactulose >daily weights Code(s): K72.90 - HEPATIC FAILURE, UNSPECIFIED WITHOUT COMA
[2019-05-30 08:16] LABS: ALBUMIN 2.6 g/dl (3.4-5.0); BILIRUBIN,TOTAL 2.2 mg/dL (0.2-1); BLOOD UREA NITROGEN 42.6 mg/dL (7-18); CALCIUM 7.9 mg/dL (8.5-10.1); CREATININE 1.5 mg/dL (0.55-1.3); MAGNESIUM 2.2 mg/dL (1.8-2.4); PHOSPHOROUS 3.2 mg/dL (2.5-4.9); POTASSIUM 4.5 mmol/L (3.5-5.1); TOT PROT 5.9 g/dl (6.4-8.2)
[2019-05-30] MEDS: ALBUMIN HUMAN 25% 12.5 GM/50 ML VIAL IVPB SCH ×2 (08:44→21:37)
[2019-05-30] MEDS: FUROSEMIDE 40 MG/4 ML INJECTABLE VIAL IVPUSH SCH ×3 (09:00→21:46)
[2019-05-30] MEDS ORDERED: PT OWN MED DRAWER 7, Y5N ONE (09:23)
[2019-05-30] MEDS: HEPARIN NA (PORCINE) 5,000 UNITS/ML 1ML VIAL SQ SCH ×2 (09:47→21:36)
[2019-05-30] MEDS: ASCORBIC ACID 500 MG TABLET (FP) PO SCH (09:48)
[2019-05-30] MEDS: TAMSULOSIN HCL 0.4 MG CAP PO SCH (09:48)
[2019-05-30] MEDS: CALCIUM (OYSTER SHELL) 500 MG TABLET (FP) PO SCH (09:48)
[2019-05-30] MEDS: RIFAXIMIN 550 MG TABLET (UD) PO SCH ×2 (09:48→21:35)
[2019-05-30] MEDS: NADOLOL 40 MG TABLET (FP) PO SCH (09:48)
[2019-05-30] MEDS: FERROUS SO4 325 MG TABLET (FP) PO SCH (09:48)
[2019-05-30] MEDS: SPIRONOLACTONE 25 MG TABLET (FP) PO SCH (09:49)
[2019-05-30] MEDS: LACTULOSE 20 GM/30 ML UDC (FOR ORAL USE ONLY) PO SCH ×2 (10:44→21:35)
--- NOTE | 2019-05-30 12:03 | PN ---
Progress Note (short form) - Note Progress Note: PULMONARY Still with ABDUL. No CP. No acute events overnight. VSS/AFEBRILE Constitutional: Yes: No Distress Cardiovascular: Yes: Regular Rate and Rhythm Respiratory: Yes: Diminished at the bases Gastrointestinal: Yes: Normal Bowel Sounds, Soft, Abdomen, Obese, Ascites Genitourinary: Yes: WNL Musculoskeletal: Yes: Muscle Weakness Extremities: Yes: WNL Edema: Yes Edema: LLE: 1+, RLE: 1+ Peripheral Pulses WNL: Yes Neurological: Yes: Alert, Oriented Psychiatric: Yes: Alert, Oriented Labs: NOTED - Problems (1) SOPHIE (acute kidney injury) Code(s): N17.9 - ACUTE KIDNEY FAILURE, UNSPECIFIED (2) CHF (congestive heart failure) Code(s): I50.9 - HEART FAILURE, UNSPECIFIED Qualifiers: Heart failure type: unspecified Heart failure chronicity: acute on chronic Qualified Code(s): I50.9 - Heart failure, unspecified (3) Pancytopenia Code(s): D61.818 - OTHER PANCYTOPENIA (4) Acute renal failure (ARF) Code(s): N17.9 - ACUTE KIDNEY FAILURE, UNSPECIFIED (5) Altered mental status Code(s): R41.82 - ALTERED MENTAL STATUS, UNSPECIFIED Qualifiers: Altered mental status type: disorientation Qualified Code(s): R41.0 - Disorientation, unspecified (6) Anemia Code(s): D64.9 - ANEMIA, UNSPECIFIED (7) COPD (chronic obstructive pulmonary disease) Code(s): J44.9 - CHRONIC OBSTRUCTIVE PULMONARY DISEASE, UNSPECIFIED (8) Chronic systolic congestive heart failure Code(s): I50.22 - CHRONIC SYSTOLIC (CONGESTIVE) HEART FAILURE (9) Cirrhosis of liver Code(s): K74.60 - UNSPECIFIED CIRRHOSIS OF LIVER (10) Esophageal varices Code(s): I85.00 - ESOPHAGEAL VARICES WITHOUT BLEEDING (11) Hepatic encephalopathy Code(s): K72.90 - HEPATIC FAILURE, UNSPECIFIED WITHOUT COMA (12) Hypoxia Code(s): R09.02 - HYPOXEMIA (13) Acute on chronic respiratory failure with hypoxia and hypercapnia Code(s): J96.21 - ACUTE AND CHRONIC RESPIRATORY FAILURE WITH HYPOXIA; J96.22 - ACUTE AND CHRONIC RESPIRATORY FAILURE WITH HYPERCAPNIA IMP DYSPNEA CHF ACUTE ON CHRONIC HYPOXEMIC/HYPERCAPNEIC RESPIRATORY FAILURE VOLUME OVERLOAD ASCITES COPD O2 DEPENDENT PLEURAL EFFUSION HEPATIC ENCEPHALOPATHY DM CIRRHOSIS WITH ESOPHAGEAL VARICES S/P BANDING PANCYTOPENIA SOPHIE H/O ETOH PLAN DIURETICS O2 DAILY WT MONITOR LYTES,RENAL FUNCTION MONITOR H+H MRI ORDERED Karina SETHI MD
--- NOTE | 2019-05-30 12:16 | PN ---
Progress Note, Physician Chief Complaint: patient feeling better -SOB is slightly better - Current Medication List Current Medications: Active Medications Albumin Human (Albumin Human 25%) 12.5 gm IVPB Q12H [facility] Stop: 05/30/19 20:01 Last Admin: 05/30/19 08:44 Dose: 12.5 gm Ascorbic Acid (Vitamin C -) 500 mg PO DAILY [facility] Last Admin: 05/30/19 09:48 Dose: 500 mg Calcium Carbonate (Os-Gerhard 500mg -) 500 mg PO DAILY [facility] Last Admin: 05/30/19 09:48 Dose: 500 mg Ferrous Sulfate (Feosol -) 325 mg PO DAILY [facility] Last Admin: 05/30/19 09:48 Dose: 325 mg Furosemide (Lasix Injection -) 40 mg IVPUSH DAILY [facility] Last Admin: 05/30/19 09:00 Dose: 40 mg Furosemide (Lasix Injection -) 40 mg IVPUSH Q12H [facility] Stop: 05/30/19 20:16 Last Admin: 05/30/19 09:00 Dose: 40 mg Heparin Sodium (Porcine) (Heparin -) 5,000 unit SQ BID [facility] Last Admin: 05/30/19 09:47 Dose: 5,000 unit Insulin Aspart (Novolog Vial Sliding Scale -) 1 vial SQ [facility]; Protocol Last Admin: 05/30/19 06:08 Dose: 2 units Insulin Detemir (Levemir Vial) 25 units SQ AM [facility] Last Admin: 05/30/19 06:08 Dose: 25 units Lactulose (Cephulac (Oral Use)) 10 gm PO BID [facility] Last Admin: 05/29/19 21:11 Dose: 10 gm Nadolol (Corgard -) 40 mg PO DAILY [facility] Last Admin: 05/30/19 09:48 Dose: 40 mg Polyethylene Glycol (Miralax (For Daily Use) -) 17 gm PO BID [facility] Last Admin: 05/29/19 21:08 Dose: Not Given Rifaximin (Xifaxan -) 550 mg PO BID [facility] Last Admin: 05/30/19 09:48 Dose: 550 mg Spironolactone (Aldactone -) 25 mg PO DAILY [facility] Last Admin: 05/30/19 09:49 Dose: 25 mg Tamsulosin HCl (Flomax -) 0.4 mg PO DAILY@0830 [facility] Last Admin: 11/01/19 09:48 Dose: 0.4 mg - Objective Vital Signs: Vital Signs Temperature 97.6 F 05/30/19 10:00 Pulse Rate 87 05/30/19 10:00 Respiratory Rate 20 05/30/19 10:00 Blood Pressure 141/85 05/30/19 10:00 O2 Sat by Pulse Oximetry (%) 98 05/30/19 09:00 Constitutional: Yes: Calm Cardiovascular: Yes: Regular Rate and Rhythm, S1, S2 Respiratory: Yes: Diminished Gastrointestinal: Yes: Soft, Distention (less) Edema: Yes (improving) Neurological: Yes: Alert, Oriented Labs: CBC, BMP 05/30/19 06:25 05/30/19 06:25 INR, PTT INR 1.30 (0.83-1.09) H 05/27/19 11:05 Problem List - Problems (1) CHF (congestive heart failure) Assessment/Plan: iv lasix with albumin echo left ventricle systolic function is severly reduced Code(s): I50.9 - HEART FAILURE, UNSPECIFIED Qualifiers: Heart failure type: unspecified Heart failure chronicity: acute on chronic Qualified Code(s): I50.9 - Heart failure, unspecified (2) Ascites Assessment/Plan: iv lasix and albumin improving Code(s): R18.8 - OTHER ASCITES (3) Cirrhosis of liver Assessment/Plan: aldactone ,nadolol,rifaximin, MRI w/o contrast ordered Code(s): K74.60 - UNSPECIFIED CIRRHOSIS OF LIVER (4) Type II diabetes mellitus, uncontrolled Assessment/Plan: insulin and bgm Code(s): E11.65 - TYPE 2 DIABETES MELLITUS WITH HYPERGLYCEMIA (5) Acquired thrombocytopenia Assessment/Plan: secondary to cirrhosis Code(s): D69.59 - OTHER SECONDARY THROMBOCYTOPENIA
[2019-05-30] MEDS: POLYETHYLENE GLYCOL 3350 119 GM BTL PO SCH ×2 (12:45→21:21)
--- NOTE | 2019-05-30 13:38 | PN ---
Progress Note, Physician Chief Complaint: no change tele nsr, periods of atrial fibrillation History of Present Illness: 74 y/o M with a history of NIDDM, liver cirrhosis with varices s/p variceal banding, hepatic encephalopathy, CHF, COPD, HTN, admitted with worsening edema, ascites and sob for one month. + orthopnea. No chest pain, palpitations, dizziness or syncope. Exercise tolerance is very poor. ECG without changes, noted pancytopenia, ascites, coagulopathy, and elevated troponin. US shows hepatic mass. awaiting MRI. Echo 05/29/19 glob HK ef 35-40 mild RVHK mod mr mod-sev TR - Current Medication List Current Medications: Active Medications Albumin Human (Albumin Human 25%) 12.5 gm IVPB Q12H [facility] Stop: 05/30/19 20:01 Last Admin: 05/30/19 08:44 Dose: 12.5 gm Ascorbic Acid (Vitamin C -) 500 mg PO DAILY [facility] Last Admin: 05/30/19 09:48 Dose: 500 mg Calcium Carbonate (Os-Gerhard 500mg -) 500 mg PO DAILY [facility] Last Admin: 05/30/19 09:48 Dose: 500 mg Ferrous Sulfate (Feosol -) 325 mg PO DAILY [facility] Last Admin: 05/30/19 09:48 Dose: 325 mg Furosemide (Lasix Injection -) 40 mg IVPUSH DAILY [facility] Last Admin: 05/30/19 09:00 Dose: 40 mg Furosemide (Lasix Injection -) 40 mg IVPUSH Q12H [facility] Stop: 05/30/19 20:16 Last Admin: 05/30/19 09:00 Dose: 40 mg Heparin Sodium (Porcine) (Heparin -) 5,000 unit SQ BID [facility] Last Admin: 05/30/19 09:47 Dose: 5,000 unit Insulin Aspart (Novolog Vial Sliding Scale -) 1 vial SQ ACHS [facility]; Protocol Last Admin: 05/30/19 12:45 Dose: 2 units Insulin Detemir (Levemir Vial) 25 units SQ AM [facility] Last Admin: 05/30/19 06:08 Dose: 25 units Lactulose (Cephulac (Oral Use)) 10 gm PO BID [facility] Last Admin: 05/30/19 10:44 Dose: 10 gm Nadolol (Corgard -) 40 mg PO DAILY [facility] Last Admin: 05/30/19 09:48 Dose: 40 mg Polyethylene Glycol (Miralax (For Daily Use) -) 17 gm PO BID [facility] Last Admin: 05/30/19 12:45 Dose: Not Given Rifaximin (Xifaxan -) 550 mg PO BID [facility] Last Admin: 05/30/19 09:48 Dose: 550 mg Spironolactone (Aldactone -) 25 mg PO DAILY [facility] Last Admin: 05/30/19 09:49 Dose: 25 mg Tamsulosin HCl (Flomax -) 0.4 mg PO DAILY@0830 [facility] Last Admin: 05/30/19 09:48 Dose: 0.4 mg - Objective Vital Signs: Vital Signs Temperature 97.6 F 05/30/19 10:00 Pulse Rate 87 05/30/19 10:00 Respiratory Rate 20 05/30/19 10:00 Blood Pressure 141/85 05/30/19 10:00 O2 Sat by Pulse Oximetry (%) 98 05/30/19 09:00 Constitutional: Yes: No Distress, Calm Eyes: Yes: Conjunctiva Clear, EOM Intact HENT: Yes: Normocephalic Neck: Yes: Trachea Midline Cardiovascular: Yes: Pulse Irregular Respiratory: Yes: CTA Bilaterally Gastrointestinal: Yes: Abdomen, Obese Extremities: Yes: WNL Edema: Yes Edema: LLE: 2+, RLE: 2+ Labs: CBC, BMP 05/30/19 06:25 05/30/19 06:25 INR, PTT INR 1.30 (0.83-1.09) H 05/27/19 11:05 Assessment/Plan 74 y/o M with a history of NIDDM, 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 + orthopnea. No chest pain, palpitations, dizziness or syncope. Exercise tolerance is very poor. ECG without changes, noted pancytopenia, ascites, coagulopathy, and elevated troponin. Echo 05/29/19 glob HK ef 35-40 mild RVHK mod mr mod-sev TR Plan -he is in atrial fibrillation now. No AC. -stop nadolol, start metoprolol increase as tolerated. -diurese per GI/liver, will need IV lasix and spironolactone, follow creat and K -not a candidate for ischemia workup -no AC or antiplatelets due to coagulopathy and liver disease. -echo shows systolic chf, however the fluid overload at present is hepatic failure due to cirrhosis.
--- NOTE | 2019-05-30 14:38 | PN ---
Progress Note (short form) - Note Progress Note: Renal follow up for SOPHIE/CKD Seen and examined at the bedside awake and alert reports that his abd distension has improved making urine no sob, cp, fever or chills Vital Signs Temperature 97.6 F 05/30/19 10:00 Pulse Rate 87 05/30/19 10:00 Respiratory Rate 20 05/30/19 10:00 Blood Pressure 141/85 05/30/19 10:00 O2 Sat by Pulse Oximetry (%) 98 05/30/19 09:00 Intake & Output 05/27/19 05/28/19 05/29/19 05/30/19 23:59 23:59 23:59 23:59 Intake Total 100 750 890 250 Output Total 650 850 200 Balance 100 100 40 50 Weight 129.274 kg 132.052 kg 131.995 kg NAD awake and alert neck supple RRR CTA + abd ascities + LE edema CBC, BMP 05/30/19 06:25 05/30/19 06:25 Current Medications Albumin Human (Albumin Human 25%) 12.5 gm IVPB Q12H [facility] Stop: 05/30/19 20:01 Last Admin: 05/30/19 08:44 Dose: 12.5 gm Ascorbic Acid (Vitamin C -) 500 mg PO DAILY [facility] Last Admin: 05/30/19 09:48 Dose: 500 mg Calcium Carbonate (Os-Gerhard 500mg -) 500 mg PO DAILY [facility] Last Admin: 05/30/19 09:48 Dose: 500 mg Ferrous Sulfate (Feosol -) 325 mg PO DAILY [facility] Last Admin: 05/30/19 09:48 Dose: 325 mg Furosemide (Lasix Injection -) 40 mg IVPUSH DAILY [facility] Last Admin: 05/30/19 09:00 Dose: 40 mg Furosemide (Lasix Injection -) 40 mg IVPUSH Q12H [facility] Stop: 05/30/19 20:16 Last Admin: 05/30/19 09:00 Dose: 40 mg Heparin Sodium (Porcine) (Heparin -) 5,000 unit SQ BID [facility] Last Admin: 05/30/19 09:47 Dose: 5,000 unit Insulin Aspart (Novolog Vial Sliding Scale -) 1 vial SQ ACHS [facility]; Protocol Last Admin: 05/30/19 12:45 Dose: 2 units Insulin Detemir (Levemir Vial) 25 units SQ AM [facility] Last Admin: 05/30/19 06:08 Dose: 25 units Lactulose (Cephulac (Oral Use)) 10 gm PO BID [facility] Last Admin: 05/30/19 10:44 Dose: 10 gm Metoprolol Tartrate (Lopressor -) 50 mg PO BID [facility] Polyethylene Glycol (Miralax (For Daily Use) -) 17 gm PO BID [facility] Last Admin: 05/30/19 12:45 Dose: Not Given Rifaximin (Xifaxan -) 550 mg PO BID [facility] Last Admin: 05/30/19 09:48 Dose: 550 mg Spironolactone (Aldactone -) 25 mg PO DAILY [facility] Last Admin: 05/30/19 09:49 Dose: 25 mg Tamsulosin HCl (Flomax -) 0.4 mg PO DAILY@0830 [facility] Last Admin: 05/30/19 09:48 Dose: 0.4 mg 74 year old gentleman with history of Alcoholic cirrhosis, hypertension, CHF presented with shortness of breath and increased abdominal girth and admitted for worsening ascities. 1. CKD vs. SOPHIE from fluid shifts 2. Alcoholic cirrhosis with ascities 3. Anemia 4. Leukopenia/thrombocytopenia 5. CHF 6. Hypertension Continue Lasix IV BID as ordered per GI with albumin to be given beforehand. Continue spironolactone for management of ascities. Continue to trend renal function, electrolytes and daily weights. Trend H/H and plt counts Cardiology and GI follow up Ang Sanchez DO
[2019-05-30] MEDS: METOPROLOL TARTRATE 50 MG TABLET (FP) PO SCH (21:35)
[2019-05-31] MEDS: INSULIN (LEVEMIR) 100 UNITS/ML UNITS SQ SCH (06:17)
[2019-05-31] MEDS: INSULIN SLIDING SCALE (NOVOLOG) 1 VIAL SQ SCH ×4 (06:19→21:25)
[2019-05-31 07:47] LABS: EOS % 8.5 % (0-4.5); HEMATOCRIT 28.4 % (35.4-49); HEMOGLOBIN 9.6 GM/dL (11.7-16.9); LYMPH % 32.1 % (8-40); MCH 34.7 pg (25.7-33.7); MCHC 33.9 g/dl (32.0-35.9); MEAN CELL VOLUME 102.3 fl (80-96); MEAN PLT VOLUME 9.3 fl (7.5-11.1); MONO % 10.9 % (3.8-10.2); NEUT % 47.5 % (42.8-82.8); PLATELET COUNT 73 K/MM3 (134-434); RBC 2.78 M/mm3 (4.00-5.60)
[2019-05-31 08:04] LABS: ALBUMIN 2.8 g/dl (3.4-5.0); BILIRUBIN,TOTAL 2.2 mg/dL (0.2-1); BLOOD UREA NITROGEN 45.6 mg/dL (7-18); CALCIUM 8.4 mg/dL (8.5-10.1); CREATININE 1.4 mg/dL (0.55-1.3); MAGNESIUM 2.3 mg/dL (1.8-2.4); PHOSPHOROUS 3.1 mg/dL (2.5-4.9); POTASSIUM 4.8 mmol/L (3.5-5.1); TOT PROT 5.9 g/dl (6.4-8.2)
[2019-05-31] MEDS ORDERED: PT OWN MED DRAWER 7, Y5N ONE (08:35)
[2019-05-31] MEDS: TAMSULOSIN HCL 0.4 MG CAP PO SCH (08:43)
--- NOTE | 2019-05-31 09:50 | PN ---
Progress Note, Physician Chief Complaint: SOPHIE CHF Hepatic Encephalopathy History of Present Illness: Previous notes and events reviewed awake and alert NAD complain of SOB and cough denies chest pain or palpitations - Current Medication List Current Medications: Active Medications Ascorbic Acid (Vitamin C -) 500 mg PO DAILY [facility] Last Admin: 05/30/19 09:48 Dose: 500 mg Calcium Carbonate (Os-Gerhard 500mg -) 500 mg PO DAILY [facility] Last Admin: 05/30/19 09:48 Dose: 500 mg Ferrous Sulfate (Feosol -) 325 mg PO DAILY [facility] Last Admin: 05/30/19 09:48 Dose: 325 mg Furosemide (Lasix Injection -) 40 mg IVPUSH DAILY [facility] Last Admin: 05/30/19 09:00 Dose: 40 mg Heparin Sodium (Porcine) (Heparin -) 5,000 unit SQ BID [facility] Last Admin: 05/30/19 21:36 Dose: 5,000 unit Insulin Aspart (Novolog Vial Sliding Scale -) 1 vial SQ [facility]; Protocol Last Admin: 05/31/19 06:19 Dose: 2 units Insulin Detemir (Levemir Vial) 25 units SQ AM [facility] Last Admin: 05/31/19 06:17 Dose: 25 units Lactulose (Cephulac (Oral Use)) 10 gm PO BID [facility] Last Admin: 05/30/19 21:35 Dose: 10 gm Metoprolol Tartrate (Lopressor -) 50 mg PO BID [facility] Last Admin: 05/30/19 21:35 Dose: 50 mg Polyethylene Glycol (Miralax (For Daily Use) -) 17 gm PO BID [facility] Last Admin: 05/30/19 21:21 Dose: Not Given Rifaximin (Xifaxan -) 550 mg PO BID [facility] Last Admin: 05/30/19 21:35 Dose: 550 mg Spironolactone (Aldactone -) 25 mg PO DAILY [facility] Last Admin: 05/30/19 09:49 Dose: 25 mg Tamsulosin HCl (Flomax -) 0.4 mg PO DAILY@0830 [facility] Last Admin: 05/31/19 08:43 Dose: 0.4 mg - Objective Vital Signs: Vital Signs Temperature 98.2 F 05/31/19 06:00 Pulse Rate 88 05/31/19 06:00 Respiratory Rate 18 05/31/19 06:00 Blood Pressure 117/62 05/31/19 06:00 O2 Sat by Pulse Oximetry (%) 100 05/30/19 21:00 Constitutional: Yes: No Distress, Calm Eyes: Yes: Conjunctiva Clear HENT: Yes: Atraumatic Cardiovascular: Yes: Pulse Irregular Respiratory: Yes: Regular, Cough, Diminished, On Nasal O2, Orthopnea Gastrointestinal: Yes: Normal Bowel Sounds, Soft, Ascites Genitourinary: Yes: Incontinence Musculoskeletal: Yes: Muscle Weakness Extremities: Yes: WNL Edema: Yes Edema: LLE: 2+, RLE: 2+ Neurological: Yes: Alert, Oriented Psychiatric: Yes: Alert, Oriented Labs: CBC, BMP 05/31/19 05:48 05/31/19 05:48 INR, PTT INR 1.30 (0.83-1.09) H 05/27/19 11:05 Microbiology 05/27/19 15:40 Urine - Urine Clean Catch Urine Culture - Final NO GROWTH OBTAINED Problem List - Problems (1) SOPHIE (acute kidney injury) Assessment/Plan: -BUN/Cr 45.6/1.4 -monitor renal function -Renal on board Code(s): N17.9 - ACUTE KIDNEY FAILURE, UNSPECIFIED (2) CHF (congestive heart failure) Assessment/Plan: -Cardiology consult -Tele monitoring -BNP 4235.7 -strict I&Os -daily weights -fluid restriction -CXR shows moderate bilateral pleural effusion with compressive atelectasis -EF 35/40% Code(s): I50.9 - HEART FAILURE, UNSPECIFIED Qualifiers: Heart failure type: unspecified Heart failure chronicity: acute on chronic Qualified Code(s): I50.9 - Heart failure, unspecified (3) Troponin level elevated Assessment/Plan: -Cardiology on board -tele monitoring -0.06, 0.04, 0.04 Code(s): R79.89 - OTHER SPECIFIED ABNORMAL FINDINGS OF BLOOD CHEMISTRY (4) COPD (chronic obstructive pulmonary disease) Assessment/Plan: -Pulm on board -CXR shows moderate bilateral pleural effusion with compressive atelectasis -O2 via NC -keep SpO2 >90% Code(s): J44.9 - CHRONIC OBSTRUCTIVE PULMONARY DISEASE, UNSPECIFIED (5) Hepatic encephalopathy Assessment/Plan: -Xifaxin -GI on board -Lactulose -Spirinolactone -completed Albumin 25% x 4 doses -US shows atrophic cirrhotic liver containing 3.5 x 2.6 x 2.9cm lobulated left hepatic lobe hypoechoic mass spaces for neoplasm such as HCC -AFP neg -Hematology on board -M-[place] ordered Code(s): K72.90 - HEPATIC FAILURE, UNSPECIFIED WITHOUT COMA (6) Type II diabetes mellitus, uncontrolled Assessment/Plan: -BGM ACHS -ISS -Levemir -HgA1c 5.5% Code(s): E11.65 - TYPE 2 DIABETES MELLITUS WITH HYPERGLYCEMIA (7) Pancytopenia Assessment/Plan: -Hematology on board -PLT 73, WBC 3.0, RBC 2.78 Code(s): D61.818 - OTHER PANCYTOPENIA (8) Afib Assessment/Plan: -Cardiology on board -tele monitoring -unable to start AC due to liver disease -Metoprolol Code(s): I48.91 - UNSPECIFIED ATRIAL FIBRILLATION Assessment/Plan see problem list
[2019-05-31] MEDS: LACTULOSE 20 GM/30 ML UDC (FOR ORAL USE ONLY) PO SCH ×2 (09:58→21:24)
[2019-05-31] MEDS: CALCIUM (OYSTER SHELL) 500 MG TABLET (FP) PO SCH (10:00)
[2019-05-31] MEDS: METOPROLOL TARTRATE 50 MG TABLET (FP) PO SCH ×2 (10:01→21:24)
[2019-05-31] MEDS: FERROUS SO4 325 MG TABLET (FP) PO SCH (10:01)
[2019-05-31] MEDS: HEPARIN NA (PORCINE) 5,000 UNITS/ML 1ML VIAL SQ SCH ×2 (10:01→21:24)
[2019-05-31] MEDS: SPIRONOLACTONE 25 MG TABLET (FP) PO SCH (10:02)
[2019-05-31] MEDS: ASCORBIC ACID 500 MG TABLET (FP) PO SCH (10:03)
[2019-05-31] MEDS: RIFAXIMIN 550 MG TABLET (UD) PO SCH ×2 (10:22→21:24)
[2019-05-31] MEDS: FUROSEMIDE 40 MG/4 ML INJECTABLE VIAL IVPUSH SCH (10:31)
[2019-05-31] MEDS: POLYETHYLENE GLYCOL 3350 119 GM BTL PO SCH ×2 (10:31→21:25)
--- NOTE | 2019-05-31 10:31 | PN ---
Progress Note (short form) - Note Progress Note: RENAL pt seen and examined He was sitting by the bedside Last Vital Signs Temp Pulse Resp BP Pulse Ox 98.2 F 88 18 117/62 100 05/31/19 06:00 05/31/19 06:00 05/31/19 06:00 05/31/19 06:00 05/30/19 21:00 awake and alert comfortable decreased breath sounds at bases cvs s1s2 rr abd distended ext +edema CBC , BMP 05/31/19 05:48 05/31/19 05:48 Current Medications Generic Name Dose Route Start Last Admin Trade Name Freq PRN Reason Stop Dose Admin Ascorbic Acid 500 mg 05/28/19 10:00 05/31/19 10:03 Vitamin C - PO 500 mg DAILY [facility] Administration Calcium Carbonate 500 mg 05/28/19 10:00 05/31/19 10:00 Os-Gerhard 500mg - PO 500 mg DAILY [facility] Administration Ferrous Sulfate 325 mg 05/28/19 10:00 05/31/19 10:01 Feosol - PO 325 mg DAILY [facility] Administration Furosemide 40 mg 05/28/19 12:00 05/30/19 09:00 Lasix Injection - IVPUSH 40 mg DAILY [facility] Administration Heparin Sodium (Porcine) 5,000 unit 05/27/19 22:00 05/31/19 10:01 Heparin - SQ 5,000 unit BID [facility] Administration Insulin Aspart 1 vial 05/27/19 17:31 05/31/19 06:19 Novolog Vial Sliding Scale - SQ 2 units ACHS [facility] Administration Protocol Insulin Detemir 25 units 05/28/19 07:00 05/31/19 06:17 Levemir Vial SQ 25 units AM [facility] Administration Lactulose 10 gm 05/27/19 22:00 05/31/19 09:58 Cephulac (Oral Use) PO 10 gm BID [facility] Administration Metoprolol Tartrate 50 mg 05/30/19 22:00 05/31/19 10:01 Lopressor - PO 50 mg BID [facility] Administration Polyethylene Glycol 17 gm 05/28/19 22:00 05/30/19 21:21 Miralax (For Daily Use) - PO Not Given BID [facility] Rifaximin 550 mg 05/27/19 22:00 05/31/19 10:22 Xifaxan - PO 550 mg BID [facility] Administration Spironolactone 25 mg 05/28/19 10:00 05/31/19 10:02 Aldactone - PO 25 mg DAILY [facility] Administration Tamsulosin HCl 0.4 mg 05/28/19 08:30 05/31/19 08:43 Flomax - PO 0.4 mg DAILY@0830 [facility] Administration 74 year old gentleman with history of Alcoholic cirrhosis, hypertension, CHF presented with shortness of breath and increased abdominal girth and admitted for worsening ascites. 1. CKD vs. SOPHIE from fluid shifts 2. Alcoholic cirrhosis with ascities 3. Anemia 4. Leukopenia/thrombocytopenia 5. CHF 6. Hypertension Continue Lasix IV BID as ordered per GI with albumin to be given beforehand. Continue spironolactone for management of ascities. Continue to trend renal function, electrolytes and daily weights. Trend H/H and plt counts would increase aldactone fluid restrict MV
--- NOTE | 2019-05-31 12:34 | PN ---
Progress Note, Physician History of Present Illness: pt seen and examined today in [facility]. states he is feeling better. denies chest pain or palpitations. states he thought he should drink a lot of water but now knows to restrict his fluid intake. - Current Medication List Current Medications: Active Medications Ascorbic Acid (Vitamin C -) 500 mg PO DAILY [facility] Last Admin: 05/31/19 10:03 Dose: 500 mg Calcium Carbonate (Os-Gerhard 500mg -) 500 mg PO DAILY [facility] Last Admin: 05/31/19 10:00 Dose: 500 mg Ferrous Sulfate (Feosol -) 325 mg PO DAILY [facility] Last Admin: 05/31/19 10:01 Dose: 325 mg Furosemide (Lasix Injection -) 40 mg IVPUSH DAILY [facility] Last Admin: 05/31/19 10:31 Dose: 40 mg Heparin Sodium (Porcine) (Heparin -) 5,000 unit SQ BID [facility] Last Admin: 05/31/19 10:01 Dose: 5,000 unit Insulin Aspart (Novolog Vial Sliding Scale -) 1 vial SQ [facility]; Protocol Last Admin: 05/31/19 10:31 Dose: 4 units Insulin Detemir (Levemir Vial) 25 units SQ AM [facility] Last Admin: 05/31/19 06:17 Dose: 25 units Lactulose (Cephulac (Oral Use)) 10 gm PO BID [facility] Last Admin: 05/31/19 09:58 Dose: 10 gm Metoprolol Tartrate (Lopressor -) 50 mg PO BID [facility] Last Admin: 05/31/19 10:01 Dose: 50 mg Polyethylene Glycol (Miralax (For Daily Use) -) 17 gm PO BID [facility] Last Admin: 05/31/19 10:31 Dose: Not Given Rifaximin (Xifaxan -) 550 mg PO BID [facility] Last Admin: 05/31/19 10:22 Dose: 550 mg Spironolactone (Aldactone -) 25 mg PO DAILY [facility] Last Admin: 05/31/19 10:02 Dose: 25 mg Tamsulosin HCl (Flomax -) 0.4 mg PO DAILY@0830 [facility] Last Admin: 05/31/19 08:43 Dose: 0.4 mg - Objective Vital Signs: Vital Signs Temperature 97.6 F 05/31/19 10:00 Pulse Rate 90 05/31/19 10:00 Respiratory Rate 18 05/31/19 10:00 Blood Pressure 118/56 L 05/31/19 10:00 O2 Sat by Pulse Oximetry (%) 100 05/31/19 10:00 Constitutional: Yes: No Distress, Calm Eyes: Yes: Conjunctiva Clear, EOM Intact, PERRL HENT: Yes: Atraumatic, Normocephalic Neck: Yes: Supple, Trachea Midline Cardiovascular: Yes: Pulse Irregular, S1, S2. No: Regular Rate and Rhythm, Bradycardia, Tachycardia, Bruit, JVD, Gallop, Murmur, Rub, S3, S4, Varicosities Respiratory: Yes: Regular, Diminished, On Nasal O2. No: Rales, Rhonchi, SOB, Wheezes Gastrointestinal: Yes: Normal Bowel Sounds. No: Distention, Tenderness Extremities: Yes: WNL Edema: Yes Edema: LLE: 1+, RLE: 1+ Peripheral Pulses WNL: Yes Neurological: Yes: Alert, Oriented Psychiatric: Yes: Alert, Oriented Labs: CBC, BMP 05/31/19 05:48 05/31/19 05:48 INR, PTT INR 1.30 (0.83-1.09) H 05/27/19 11:05 - ....Imaging Chest X-ray: Report Reviewed, Image Reviewed EKG: Report Reviewed, Image Reviewed Other: Report Reviewed, Image Reviewed (tele-Afib, HR adequately controlled currently) Assessment/Plan 74 y/o M with a history of NIDDM, 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 + orthopnea. No chest pain, palpitations, dizziness or syncope. Exercise tolerance is very poor. ECG without changes, noted pancytopenia, ascites, coagulopathy, and elevated troponin. Echo 05/29/19 glob HK ef 35-40 mild RVHK mod mr mod-sev TR AFib/CHF -HR currently adequately controlled -stopped nadolol, started metoprolol increase as needed -receiving Lasix 40mg IV daily and spironolactone -fluid restriction 1L/24hr -monitor strict I/os, daily weights, bun/creat, and electrolytes and replete as needed -not a candidate for ischemia workup at this time -no AC or antiplatelets due to coagulopathy and liver disease. -echo shows systolic chf, however the fluid overload at present is at least in part due to hepatic failure due to cirrhosis.
[2019-06-01] MEDS: INSULIN SLIDING SCALE (NOVOLOG) 1 VIAL SQ SCH ×4 (06:24→21:52)
[2019-06-01] MEDS: INSULIN (LEVEMIR) 100 UNITS/ML UNITS SQ SCH (06:24)
[2019-06-01 06:45] LABS: HEMATOCRIT 28.7 % (35.4-49); HEMOGLOBIN 10.2 GM/dL (11.7-16.9); MCH 36.3 pg (25.7-33.7); MCHC 35.4 g/dl (32.0-35.9); MEAN CELL VOLUME 102.6 fl (80-96); MEAN PLT VOLUME 9.9 fl (7.5-11.1); PLATELET COUNT 91 K/MM3 (134-434); RDW 15.8 % (11.9-15.9); WHITE BLOOD COUNT 3.9 K/mm3 (4.0-10.0)
[2019-06-01 08:28] LABS: ALBUMIN 2.9 g/dl (3.4-5.0); BILIRUBIN,TOTAL 2.5 mg/dL (0.2-1); BLOOD UREA NITROGEN 47.6 mg/dL (7-18); CALCIUM 8.7 mg/dL (8.5-10.1); CREATININE 1.5 mg/dL (0.55-1.3); POTASSIUM 4.8 mmol/L (3.5-5.1); TOT PROT 6.1 g/dl (6.4-8.2)
[2019-06-01] MEDS: TAMSULOSIN HCL 0.4 MG CAP PO SCH (08:58)
[2019-06-01] MEDS: FUROSEMIDE 40 MG/4 ML INJECTABLE VIAL IVPUSH SCH (08:59)
[2019-06-01] MEDS: SPIRONOLACTONE 25 MG TABLET (FP) PO SCH (08:59)
[2019-06-01] MEDS: CALCIUM (OYSTER SHELL) 500 MG TABLET (FP) PO SCH (08:59)
[2019-06-01] MEDS: ASCORBIC ACID 500 MG TABLET (FP) PO SCH (08:59)
[2019-06-01] MEDS: HEPARIN NA (PORCINE) 5,000 UNITS/ML 1ML VIAL SQ SCH ×2 (08:59→21:52)
[2019-06-01] MEDS: FERROUS SO4 325 MG TABLET (FP) PO SCH (08:59)
[2019-06-01] MEDS: METOPROLOL TARTRATE 50 MG TABLET (FP) PO SCH ×2 (08:59→21:51)
[2019-06-01] MEDS: LACTULOSE 20 GM/30 ML UDC (FOR ORAL USE ONLY) PO SCH ×2 (09:00→21:52)
[2019-06-01] MEDS: POLYETHYLENE GLYCOL 3350 119 GM BTL PO SCH ×2 (09:00→21:52)
[2019-06-01] MEDS: RIFAXIMIN 550 MG TABLET (UD) PO SCH ×2 (09:01→21:52)
--- NOTE | 2019-06-01 12:24 | PN ---
Progress Note, Physician Chief Complaint: AWAKE EATING LUNCH OOB IN A CHAIR STILL SOB - Current Medication List Current Medications: Active Medications Ascorbic Acid (Vitamin C -) 500 mg PO DAILY [facility] Last Admin: 06/01/19 08:59 Dose: 500 mg Calcium Carbonate (Os-Gerhard 500mg -) 500 mg PO DAILY [facility] Last Admin: 06/01/19 08:59 Dose: 500 mg Ferrous Sulfate (Feosol -) 325 mg PO DAILY [facility] Last Admin: 06/01/19 08:59 Dose: 325 mg Furosemide (Lasix Injection -) 40 mg IVPUSH DAILY [facility] Last Admin: 06/01/19 08:59 Dose: 40 mg Heparin Sodium (Porcine) (Heparin -) 5,000 unit SQ BID [facility] Last Admin: 06/01/19 08:59 Dose: 5,000 unit Insulin Aspart (Novolog Vial Sliding Scale -) 1 vial SQ [facility]; Protocol Last Admin: 06/01/19 12:13 Dose: 8 units Insulin Detemir (Levemir Vial) 25 units SQ AM [facility] Last Admin: 06/01/19 06:24 Dose: 25 units Lactulose (Cephulac (Oral Use)) 10 gm PO BID [facility] Last Admin: 06/01/19 09:00 Dose: Not Given Metoprolol Tartrate (Lopressor -) 50 mg PO BID [facility] Last Admin: 06/01/19 08:59 Dose: 50 mg Polyethylene Glycol (Miralax (For Daily Use) -) 17 gm PO BID [facility] Last Admin: 06/01/19 09:00 Dose: Not Given Rifaximin (Xifaxan -) 550 mg PO BID [facility] Last Admin: 06/01/19 09:01 Dose: 550 mg Spironolactone (Aldactone -) 25 mg PO DAILY [facility] Last Admin: 06/01/19 08:59 Dose: 25 mg Tamsulosin HCl (Flomax -) 0.4 mg PO DAILY@0830 [facility] Last Admin: 06/01/19 08:58 Dose: 0.4 mg - Objective Vital Signs: Vital Signs Temperature 97.8 F 06/01/19 08:51 Pulse Rate 85 06/01/19 08:51 Respiratory Rate 18 06/01/19 08:51 Blood Pressure 125/70 06/01/19 08:51 O2 Sat by Pulse Oximetry (%) 100 05/31/19 21:00 Constitutional: Yes: Mild Distress Cardiovascular: Yes: Other Respiratory: Yes: Diminished, On Nasal O2 Gastrointestinal: Yes: Soft, Abdomen, Obese Musculoskeletal: Yes: Muscle Weakness Edema: Yes Edema: LLE: 2+, RLE: 2+ Integumentary: Yes: Erythema Neurological: Yes: Confusion, Pre-Existing Deficit Psychiatric: Yes: Other Labs: CBC, BMP 06/01/19 06:15 06/01/19 06:15 INR, PTT INR 1.30 (0.83-1.09) H 05/27/19 11:05 Problem List - Problems (1) SOPHIE (acute kidney injury) Code(s): N17.9 - ACUTE KIDNEY FAILURE, UNSPECIFIED (2) Acute on chronic respiratory failure with hypoxia and hypercapnia Code(s): J96.21 - ACUTE AND CHRONIC RESPIRATORY FAILURE WITH HYPOXIA; J96.22 - ACUTE AND CHRONIC RESPIRATORY FAILURE WITH HYPERCAPNIA (3) Afib Code(s): I48.91 - UNSPECIFIED ATRIAL FIBRILLATION (4) Ascites Code(s): R18.8 - OTHER ASCITES (5) CHF (congestive heart failure) Code(s): I50.9 - HEART FAILURE, UNSPECIFIED Qualifiers: Heart failure type: unspecified Heart failure chronicity: acute on chronic Qualified Code(s): I50.9 - Heart failure, unspecified (6) Hepatic encephalopathy Code(s): K72.90 - HEPATIC FAILURE, UNSPECIFIED WITHOUT COMA (7) Type II diabetes mellitus, uncontrolled Code(s): E11.65 - TYPE 2 DIABETES MELLITUS WITH HYPERGLYCEMIA Assessment/Plan LASIX FOR EDEMA HEPARIN SQ DVT PROPHYLAXIS OOB TO CHAIR PT EVAL HEPATIC ENCEPHALOPATHY MONITOR MS AND LFT. SNF PLACEMENT RESP F/U FOR SOB
--- NOTE | 2019-06-01 12:57 | PN ---
Progress Note, Physician History of Present Illness: pt seen and examined today in [facility]. sitting in chair. states he is feeling better today. - Current Medication List Current Medications: Active Medications Ascorbic Acid (Vitamin C -) 500 mg PO DAILY [facility] Last Admin: 06/01/19 08:59 Dose: 500 mg Calcium Carbonate (Os-Gerhard 500mg -) 500 mg PO DAILY [facility] Last Admin: 06/01/19 08:59 Dose: 500 mg Ferrous Sulfate (Feosol -) 325 mg PO DAILY [facility] Last Admin: 06/01/19 08:59 Dose: 325 mg Furosemide (Lasix Injection -) 40 mg IVPUSH DAILY [facility] Last Admin: 06/01/19 08:59 Dose: 40 mg Heparin Sodium (Porcine) (Heparin -) 5,000 unit SQ BID [facility] Last Admin: 06/01/19 08:59 Dose: 5,000 unit Insulin Aspart (Novolog Vial Sliding Scale -) 1 vial SQ [facility]; Protocol Last Admin: 06/01/19 12:13 Dose: 8 units Insulin Detemir (Levemir Vial) 25 units SQ AM [facility] Last Admin: 06/01/19 06:24 Dose: 25 units Lactulose (Cephulac (Oral Use)) 10 gm PO BID [facility] Last Admin: 06/01/19 09:00 Dose: Not Given Metoprolol Tartrate (Lopressor -) 50 mg PO BID [facility] Last Admin: 06/01/19 08:59 Dose: 50 mg Polyethylene Glycol (Miralax (For Daily Use) -) 17 gm PO BID [facility] Last Admin: 06/01/19 09:00 Dose: Not Given Rifaximin (Xifaxan -) 550 mg PO BID [facility] Last Admin: 06/01/19 09:01 Dose: 550 mg Spironolactone (Aldactone -) 25 mg PO DAILY [facility] Last Admin: 06/01/19 08:59 Dose: 25 mg Tamsulosin HCl (Flomax -) 0.4 mg PO DAILY@0830 [facility] Last Admin: 06/01/19 08:58 Dose: 0.4 mg - Objective Vital Signs: Vital Signs Temperature 97.8 F 06/01/19 08:51 Pulse Rate 85 06/01/19 08:51 Respiratory Rate 18 06/01/19 09:00 Blood Pressure 125/70 06/01/19 08:51 O2 Sat by Pulse Oximetry (%) 100 06/01/19 09:00 Constitutional: Yes: No Distress, Calm Eyes: Yes: Conjunctiva Clear, EOM Intact, PERRL HENT: Yes: Atraumatic, Normocephalic Neck: Yes: Supple, Trachea Midline Cardiovascular: Yes: Pulse Irregular, S1, S2. No: Regular Rate and Rhythm, Bradycardia, Tachycardia, Bruit, JVD, Gallop, Murmur, Rub, S3, S4, Varicosities Respiratory: Yes: Regular, Diminished, On Nasal O2. No: Rales, Rhonchi, SOB, Wheezes Gastrointestinal: Yes: Normal Bowel Sounds, Soft Extremities: Yes: WNL Edema: Yes Edema: LLE: 1+, RLE: 1+ Peripheral Pulses: Left Doralis Pedis: 2+, Right Dorsalis Pedis: 2+ Neurological: Yes: Alert, Oriented Psychiatric: Yes: Alert, Oriented Labs: CBC, BMP 06/01/19 06:15 06/01/19 06:15 INR, PTT INR 1.30 (0.83-1.09) H 05/27/19 11:05 - ....Imaging Chest X-ray: Report Reviewed, Image Reviewed EKG: Report Reviewed, Image Reviewed Other: Report Reviewed, Image Reviewed (tele-afib, HR adequately controlled) Assessment/Plan 74 y/o M with a history of NIDDM, 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 + orthopnea. No chest pain, palpitations, dizziness or syncope. Exercise tolerance is very poor. ECG without changes, noted pancytopenia, ascites, coagulopathy, and elevated troponin. Echo 05/29/19 glob HK ef 35-40 mild RVHK mod mr mod-sev TR AFib/CHF -HR adequately controlled -stopped nadolol, cont metoprolol and increase as needed -receiving Lasix 40mg IV daily and spironolactone -fluid restriction 1L/24hr -monitor strict I/os, daily weights, bun/creat, and electrolytes and replete as needed -not a candidate for ischemia workup at this time -no AC or antiplatelets due to coagulopathy and liver disease. -echo shows systolic chf, however the fluid overload at present is at least in part due to hepatic failure due to cirrhosis.
--- NOTE | 2019-06-01 16:04 | PN ---
Progress Note (short form) - Note Progress Note: RENAL pt seen and examined He was sitting by the bedside Last Vital Signs Temp Pulse Resp BP Pulse Ox 98.7 F 88 20 116/64 100 06/01/19 13:52 06/01/19 13:52 06/01/19 13:52 06/01/19 13:52 06/01/19 09:00 awake and alert comfortable decreased breath sounds at bases cvs s1s2 rr abd distended ext +edema up to upper thighs CBC, BMP 06/01/19 06:15 06/01/19 06:15 Current Medications Generic Name Dose Route Start Last Admin Trade Name Freq PRN Reason Stop Dose Admin Ascorbic Acid 500 mg 05/28/19 10:00 06/01/19 08:59 Vitamin C - PO 500 mg DAILY [facility] Administration Calcium Carbonate 500 mg 05/28/19 10:00 06/01/19 08:59 Os-Gerhard 500mg - PO 500 mg DAILY [facility] Administration Ferrous Sulfate 325 mg 05/28/19 10:00 06/01/19 08:59 Feosol - PO 325 mg DAILY [facility] Administration Furosemide 40 mg 05/28/19 12:00 06/01/19 08:59 Lasix Injection - IVPUSH 40 mg DAILY [facility] Administration Heparin Sodium (Porcine) 5,000 unit 05/27/19 22:00 06/01/19 08:59 Heparin - SQ 5,000 unit BID [facility] Administration Insulin Aspart 1 vial 05/27/19 17:31 06/01/19 12:13 Novolog Vial Sliding Scale - SQ 8 units ACHS [facility] Administration Protocol Insulin Detemir 25 units 05/28/19 07:00 06/01/19 06:24 Levemir Vial SQ 25 units AM [facility] Administration Lactulose 10 gm 05/27/19 22:00 06/01/19 09:00 Cephulac (Oral Use) PO Not Given BID [facility] Metoprolol Tartrate 50 mg 05/30/19 22:00 06/01/19 08:59 Lopressor - PO 50 mg BID [facility] Administration Polyethylene Glycol 17 gm 05/28/19 22:00 06/01/19 09:00 Miralax (For Daily Use) - PO Not Given BID [facility] Rifaximin 550 mg 05/27/19 22:00 06/01/19 09:01 Xifaxan - PO 550 mg BID [facility] Administration Spironolactone 25 mg 05/28/19 10:00 06/01/19 08:59 Aldactone - PO 25 mg DAILY [facility] Administration Tamsulosin HCl 0.4 mg 05/28/19 08:30 06/01/19 08:58 Flomax - PO 0.4 mg DAILY@0830 [facility] Administration 74 year old gentleman with history of Alcoholic cirrhosis, hypertension, CHF presented with shortness of breath and increased abdominal girth and admitted for worsening ascites. 1. CKD vs. SOPHIE from fluid shifts 2. Alcoholic cirrhosis with ascities 3. Anemia 4. Leukopenia/thrombocytopenia 5. CHF 6. Hypertension increase lasix to bid Continue spironolactone for management of ascities. Continue to trend renal function, electrolytes and daily weights. Trend H/H and plt counts would increase aldactone fluid restrict pt asking for podiatry evaluation to cut his nails and treat his callus MV
[2019-06-01] MEDS ORDERED: PT OWN MED DRAWER 7, Y5N ONE (21:20)
[2019-06-02] MEDS ORDERED: FUROSEMIDE 40 MG/4 ML INJECTABLE VIAL IVPUSH SCH ×3 (06:00→22:30)
[2019-06-02] MEDS: INSULIN (LEVEMIR) 100 UNITS/ML UNITS SQ SCH (06:09)
[2019-06-02] MEDS: INSULIN SLIDING SCALE (NOVOLOG) 1 VIAL SQ SCH ×4 (06:09→21:33)
[2019-06-02 07:17] LABS: BLOOD UREA NITROGEN 52.7 mg/dL (7-18); CALCIUM 8.3 mg/dL (8.5-10.1); CREATININE 1.5 mg/dL (0.55-1.3); MAGNESIUM 2.3 mg/dL (1.8-2.4); PHOSPHOROUS 3.5 mg/dL (2.5-4.9); POTASSIUM 5.4 mmol/L (3.5-5.1)
[2019-06-02 08:22] LABS: HEMATOCRIT 30.1 % (35.4-49); HEMOGLOBIN 10.3 GM/dL (11.7-16.9); MCH 34.5 pg (25.7-33.7); MEAN CELL VOLUME 101.6 fl (80-96); MEAN PLT VOLUME 9.9 fl (7.5-11.1); PLATELET COUNT 93 K/MM3 (134-434); RBC 2.97 M/mm3 (4.00-5.60); RDW 15.8 % (11.9-15.9); WHITE BLOOD COUNT 3.6 K/mm3 (4.0-10.0)
[2019-06-02] MEDS: TAMSULOSIN HCL 0.4 MG CAP PO SCH (08:43)
--- NOTE | 2019-06-02 08:52 | PN.GI ---
GI Progress Note Subjective: Patient denies abdominal pain, vomiting, diarrhea, melena. Daily weights showing an increase in weight from 291lbs to 294lbs. Labs show worsening renal function and increase Alk Phos 244. - Objective Vital Signs: Vital Signs Temperature 97.7 F 06/02/19 06:00 Pulse Rate 93 H 06/02/19 06:00 Respiratory Rate 20 06/02/19 06:00 Blood Pressure 123/71 06/02/19 06:00 O2 Sat by Pulse Oximetry (%) 100 06/01/19 21:00 Constitutional: No Distress, Calm Eyes: Yes: Conjunctiva Clear HENT: Yes: Atraumatic Cardiovascular: Yes: Regular Rate and Rhythm Respiratory: Yes: Regular, Diminished, On Nasal O2 Gastrointestinal Inspection: Yes: Ascites. No: WNL, Distention, Hernia, Scars, Other ...Auscultate: Yes: Normoactive Bowel Sounds. No: Hyperactive Bowel Sounds, Hypoactive Bowel Sounds, No Bowel Sounds, Other ...Palpate: Yes: Soft. No: Firm/Rigid, Guarding, Hepatomegaly, Mass, Pulsatile Mass, Splenomegaly, Tenderness, Tenderness, Epigastium, Tenderness, Rebound, Other ...Percussion: Yes: Tympanitic. No: Dullness, Fluid Wave, Other Neurological: Yes: Alert, Oriented Psychiatric: Yes: Alert, Oriented Labs: CBC, BMP 06/02/19 07:30 06/02/19 05:54 INR, PTT INR 1.30 (0.83-1.09) H 05/27/19 11:05 Active Medications Generic Name Dose Route Start Last Admin Trade Name Freq PRN Reason Stop Dose Admin Albumin Human 12.5 gm 06/02/19 09:00 Albumin Human 25% IVPB 06/03/19 21:01 Q12H MYNOR Ascorbic Acid 500 mg 05/28/19 10:00 06/01/19 08:59 Vitamin C - PO 500 mg DAILY [facility] Administration Calcium Carbonate 500 mg 05/28/19 10:00 06/01/19 08:59 Os-Gerhard 500mg - PO 500 mg DAILY [facility] Administration Ferrous Sulfate 325 mg 05/28/19 10:00 06/01/19 08:59 Feosol - PO 325 mg DAILY [facility] Administration Furosemide 40 mg 06/02/19 22:00 Lasix Injection - IVPUSH Q12H [facility] Heparin Sodium (Porcine) 5,000 unit 05/27/19 22:00 06/01/19 21:52 Heparin - SQ 5,000 unit BID [facility] Administration Insulin Aspart 1 vial 05/27/19 17:31 06/02/19 06:09 Novolog Vial Sliding Scale - SQ 2 units ACHS [facility] Administration Protocol Insulin Detemir 25 units 05/28/19 07:00 06/02/19 06:09 Levemir Vial SQ 25 units AM [facility] Administration Lactulose 10 gm 05/27/19 22:00 06/01/19 21:52 Cephulac (Oral Use) PO Not Given BID [facility] Metoprolol Tartrate 50 mg 05/30/19 22:00 06/01/19 21:51 Lopressor - PO 50 mg BID [facility] Administration Polyethylene Glycol 17 gm 05/28/19 22:00 06/01/19 21:52 Miralax (For Daily Use) - PO Not Given BID [facility] Rifaximin 550 mg 05/27/19 22:00 06/01/19 21:52 Xifaxan - PO 550 mg BID [facility] Administration Spironolactone 25 mg 05/28/19 10:00 06/01/19 08:59 Aldactone - PO 25 mg DAILY [facility] Administration Tamsulosin HCl 0.4 mg 05/28/19 08:30 06/02/19 08:43 Flomax - PO 0.4 mg DAILY@0830 [facility] Administration Problem List - Problems (1) Cirrhosis of liver Assessment/Plan: >Lactulose, Nadolol, Spironolactone >Abdominal US reviewed >AFP neg >Abdominal MRI without contrast >re-order another Albumin 25% IVPB q12h x 4 doses >Furosemide 40mg IVP 30 min AFTER each dose of albumin >Serial CMP to monitor LFTs >daily weight Code(s): K74.60 - UNSPECIFIED CIRRHOSIS OF LIVER (2) Hepatic encephalopathy Assessment/Plan: >Xifaxin, Lactulose >daily weights Code(s): K72.90 - HEPATIC FAILURE, UNSPECIFIED WITHOUT COMA
[2019-06-02] MEDS ORDERED: PT OWN MED DRAWER 7, Y5N ONE ×2 (10:06→21:09)
[2019-06-02] MEDS: ALBUMIN HUMAN 25% 12.5 GM/50 ML VIAL IVPB SCH ×2 (10:09→21:28)
[2019-06-02] MEDS: METOPROLOL TARTRATE 50 MG TABLET (FP) PO SCH ×2 (10:11→21:27)
[2019-06-02] MEDS: HEPARIN NA (PORCINE) 5,000 UNITS/ML 1ML VIAL SQ SCH ×2 (10:11→21:27)
[2019-06-02] MEDS: FERROUS SO4 325 MG TABLET (FP) PO SCH (10:11)
[2019-06-02] MEDS: ASCORBIC ACID 500 MG TABLET (FP) PO SCH (10:11)
[2019-06-02] MEDS: CALCIUM (OYSTER SHELL) 500 MG TABLET (FP) PO SCH (10:11)
[2019-06-02] MEDS: SPIRONOLACTONE 25 MG TABLET (FP) PO SCH (10:11)
[2019-06-02] MEDS: RIFAXIMIN 550 MG TABLET (UD) PO SCH ×2 (10:12→21:27)
[2019-06-02] MEDS: LACTULOSE 20 GM/30 ML UDC (FOR ORAL USE ONLY) PO SCH ×2 (10:21→21:29)
[2019-06-02] MEDS: POLYETHYLENE GLYCOL 3350 119 GM BTL PO SCH ×2 (10:21→21:29)
--- NOTE | 2019-06-02 10:24 | EKG ---
Test Reason : Blood Pressure : / mmHG Vent. Rate : 082 BPM Atrial Rate : 288 BPM P-R Int : 000 ms QRS Dur : 142 ms QT Int : 388 ms P-R-T Axes : 000 098 037 degrees QTc Int : 453 ms ATRIAL FIBRILLATION WITH PREMATURE VENTRICULAR OR ABERRANTLY CONDUCTED COMPLEXES NON-SPECIFIC INTRA-VENTRICULAR CONDUCTION BLOCK ABNORMAL ECG WHEN COMPARED WITH ECG OF 27-MAY-2019 10:40, ATRIAL FIBRILLATION HAS REPLACED SINUS RHYTHM VENT. RATE HAS INCREASED PATIENT SITTING UP IN BED DURING EKG DUE TO BREATHING DIFFICULTY Confirmed by HIREN HASTINGS MD ([id number]) on 06/02/2019 10:24:14 AM Referred By: Confirmed By:HIREN HASTINGS MD
--- NOTE | 2019-06-02 11:42 | PATH ---
Surgical Pathology Report Patient Name: JOSE WARD [place]. Rec. #: [id number] /Age/Gender: 1945 (Age: 74) / M Account: [id number] Location: [facility] P[facility]/ADOL Taken: 05/28/2019 Received: 05/28/2019 Reported: 06/02/2019 Physicians: Marily Oneil M.D. Specimen(s) Received PERIPHERAL BLOOD 4 [facility] Clinical History PMH HTN, CHF, COPD, cirrhosis (2/2 EtOH), SOB, found to have pancytopenia, rule out MDS Final Diagnosis FLOW CYTOMETRY performed and interpreted at [place], [place] ([id number]) shows the following: INTERPRETATION: NO ATYPICAL FLOW CYTOMETRIC FINDINGS SEEN PHENOTYPE: Lymphocytes include polyclonal B cells, NK cells and immunophenotypically normal CD4+ and CD8+ T cells in normal proportions. No evidence of a clonal lymphoid expansion. Granulocytes are immunophenotypically mature. Cytomorphology: Smears from flow sample show no increase in myeloblasts or atypical lymphocytes. See [facility] report ([id number]) for additional details. MYELODYSPLASIA FISH PANEL performed and interpreted at [place], [place] shows the following: INTERPRETATION: No evidence of deletion 5q or monosomy 5 is present. No evidence of deletion 7q or monosomy 7 is present. No evidence of trisomy 8 (+8) is present. No evidence of deletion 13q14.2 is present. No evidence of rearrangement of 11q23. No evidence of a deletion of the p53 (17p13) locus. No evidence of deletion 20q12 is present See [facility] report ([id number]) for additional details. Electronically Signed Magdalene Mckenzie M.D. Addendum Reported: 06/03/2019 Addendum Diagnosis CYTOGENETIC KARYOTYPE ANALYSIS performed and interpreted at [facility] shows the following: RESULTS: Tissue Culture Failure INTERPRETATION: This unstimulated peripheral blood specimen did not produce any analyzable metaphase cells and, therefore, chromosome analysis is not possible. A bone marrow aspirate, when clinically appropriate, is recommended. See [facility] report for additional details ([id number]). Kiyoe Mckenzie, M.D. Gross Description Received are 4 green top tubes of blood which are sent to [facility]. DL05/28/2019 saudi05/28/2019
--- NOTE | 2019-06-02 12:36 | PN ---
Progress Note, Physician History of Present Illness: PULMONARY ALERT,SITTING UP IN BED LESS DYSPNEIC,+ COUGH - Current Medication List Current Medications: Active Medications Albumin Human (Albumin Human 25%) 12.5 gm IVPB Q12H [facility] Stop: 06/03/19 22:01 Last Admin: 06/02/19 10:09 Dose: 12.5 gm Ascorbic Acid (Vitamin C -) 500 mg PO DAILY [facility] Last Admin: 06/02/19 10:11 Dose: 500 mg Calcium Carbonate (Os-Gerhard 500mg -) 500 mg PO DAILY [facility] Last Admin: 06/02/19 10:11 Dose: 500 mg Ferrous Sulfate (Feosol -) 325 mg PO DAILY [facility] Last Admin: 06/02/19 10:11 Dose: 325 mg Furosemide (Lasix Injection -) 40 mg IVPUSH Q12H [facility] Stop: 06/03/19 22:31 Heparin Sodium (Porcine) (Heparin -) 5,000 unit SQ BID [facility] Last Admin: 06/02/19 10:11 Dose: 5,000 unit Insulin Aspart (Novolog Vial Sliding Scale -) 1 vial SQ [facility]; Protocol Last Admin: 06/02/19 11:43 Dose: 4 units Insulin Detemir (Levemir Vial) 25 units SQ AM [facility] Last Admin: 06/02/19 06:09 Dose: 25 units Lactulose (Cephulac (Oral Use)) 10 gm PO BID [facility] Last Admin: 06/02/19 10:21 Dose: Not Given Metoprolol Tartrate (Lopressor -) 50 mg PO BID [facility] Last Admin: 06/02/19 10:11 Dose: 50 mg Polyethylene Glycol (Miralax (For Daily Use) -) 17 gm PO BID [facility] Last Admin: 06/02/19 10:21 Dose: Not Given Rifaximin (Xifaxan -) 550 mg PO BID [facility] Last Admin: 06/02/19 10:12 Dose: 550 mg Spironolactone (Aldactone -) 25 mg PO DAILY [facility] Last Admin: 06/02/19 10:11 Dose: 25 mg Tamsulosin HCl (Flomax -) 0.4 mg PO DAILY@0830 [facility] Last Admin: 06/02/19 08:43 Dose: 0.4 mg - Objective Vital Signs: Vital Signs Temperature 97.6 F 06/02/19 10:00 Pulse Rate 92 H 06/02/19 10:00 Respiratory Rate 06/02/19 10:00 Blood Pressure 123/55 L 06/02/19 10:00 O2 Sat by Pulse Oximetry (%) 100 06/01/19 21:00 Constitutional: Yes: Well Nourished, Calm Eyes: Yes: WNL HENT: Yes: WNL Neck: Yes: WNL Cardiovascular: Yes: Regular Rate and Rhythm, S1, S2 Respiratory: Yes: Diminished Gastrointestinal: Yes: Normal Bowel Sounds, Soft Extremities: Yes: WNL Edema: Yes Labs: CBC, BMP 06/02/19 07:30 06/02/19 05:54 INR, PTT INR 1.30 (0.83-1.09) H 05/27/19 11:05 Problem List - Problems (1) SOPHIE (acute kidney injury) Code(s): N17.9 - ACUTE KIDNEY FAILURE, UNSPECIFIED (2) CHF (congestive heart failure) Code(s): I50.9 - HEART FAILURE, UNSPECIFIED Qualifiers: Heart failure type: unspecified Heart failure chronicity: acute on chronic Qualified Code(s): I50.9 - Heart failure, unspecified (3) Pancytopenia Code(s): D61.818 - OTHER PANCYTOPENIA (4) Acute renal failure (ARF) Code(s): N17.9 - ACUTE KIDNEY FAILURE, UNSPECIFIED (5) Altered mental status Code(s): R41.82 - ALTERED MENTAL STATUS, UNSPECIFIED Qualifiers: Altered mental status type: disorientation Qualified Code(s): R41.0 - Disorientation, unspecified (6) Anemia Code(s): D64.9 - ANEMIA, UNSPECIFIED (7) COPD (chronic obstructive pulmonary disease) Code(s): J44.9 - CHRONIC OBSTRUCTIVE PULMONARY DISEASE, UNSPECIFIED (8) Chronic systolic congestive heart failure Code(s): I50.22 - CHRONIC SYSTOLIC (CONGESTIVE) HEART FAILURE (9) Cirrhosis of liver Code(s): K74.60 - UNSPECIFIED CIRRHOSIS OF LIVER (10) Esophageal varices Code(s): I85.00 - ESOPHAGEAL VARICES WITHOUT BLEEDING (11) Hepatic encephalopathy Code(s): K72.90 - HEPATIC FAILURE, UNSPECIFIED WITHOUT COMA (12) Hypoxia Code(s): R09.02 - HYPOXEMIA (13) Acute on chronic respiratory failure with hypoxia and hypercapnia Code(s): J96.21 - ACUTE AND CHRONIC RESPIRATORY FAILURE WITH HYPOXIA; J96.22 - ACUTE AND CHRONIC RESPIRATORY FAILURE WITH HYPERCAPNIA Assessment/Plan CONSULTATION DICTATED 05/08/19 IMP DYSPNEA IMPROVING CHF ACUTE ON CHRONIC HYPOXEMIC/HYPERCAPNEIC RESPIRATORY FAILURE IMPROVING VOLUME OVERLOAD ASCITES COPD O2 DEPENDENT PLEURAL EFFUSION HEPATIC ENCEPHALOPATHY DM CIRRHOSIS WITH ESOPHAGEAL VARICES S/P BANDING PANCYTOPENIA SLOWLY IMPROVING SOPHIE H/O ETOH PLAN DIURETICS O2 DAILY WT MONITOR LYTES,RENAL FUNCTION MONITOR H+H CHEST CT DR COLLAZO Problem List - Problems (1) SOPHIE (acute kidney injury) Code(s): N17.9 - ACUTE KIDNEY FAILURE, UNSPECIFIED (2) CHF (congestive heart failure) Code(s): I50.9 - HEART FAILURE, UNSPECIFIED Qualifiers: Heart failure type: unspecified Heart failure chronicity: acute on chronic Qualified Code(s): I50.9 - Heart failure, unspecified (3) Pancytopenia Code(s): D61.818 - OTHER PANCYTOPENIA (4) Acute renal failure (ARF) Code(s): N17.9 - ACUTE KIDNEY FAILURE, UNSPECIFIED (5) Altered mental status Code(s): R41.82 - ALTERED MENTAL STATUS, UNSPECIFIED Qualifiers: Altered mental status type: disorientation Qualified Code(s): R41.0 - Disorientation, unspecified (6) Anemia Code(s): D64.9 - ANEMIA, UNSPECIFIED (7) COPD (chronic obstructive pulmonary disease) Code(s): J44.9 - CHRONIC OBSTRUCTIVE PULMONARY DISEASE, UNSPECIFIED (8) Chronic systolic congestive heart failure Code(s): I50.22 - CHRONIC SYSTOLIC (CONGESTIVE) HEART FAILURE (9) Cirrhosis of liver Code(s): K74.60 - UNSPECIFIED CIRRHOSIS OF LIVER (10) Esophageal varices Code(s): I85.00 - ESOPHAGEAL VARICES WITHOUT BLEEDING (11) Hepatic encephalopathy Code(s): K72.90 - HEPATIC FAILURE, UNSPECIFIED WITHOUT COMA (12) Hypoxia Code(s): R09.02 - HYPOXEMIA (13) Acute on chronic respiratory failure with hypoxia and hypercapnia Code(s): J96.21 - ACUTE AND CHRONIC RESPIRATORY FAILURE WITH HYPOXIA; J96.22 - ACUTE AND CHRONIC RESPIRATORY FAILURE WITH HYPERCAPNIA
--- NOTE | 2019-06-02 12:44 | PN ---
Progress Note, Physician Chief Complaint: paul seen and examined sitting up in bed les dysneic - Current Medication List Current Medications: Active Medications Albumin Human (Albumin Human 25%) 12.5 gm IVPB Q12H [facility] Stop: 06/03/19 22:01 Last Admin: 06/02/19 10:09 Dose: 12.5 gm Ascorbic Acid (Vitamin C -) 500 mg PO DAILY [facility] Last Admin: 06/02/19 10:11 Dose: 500 mg Calcium Carbonate (Os-Gerhard 500mg -) 500 mg PO DAILY [facility] Last Admin: 06/02/19 10:11 Dose: 500 mg Ferrous Sulfate (Feosol -) 325 mg PO DAILY [facility] Last Admin: 06/02/19 10:11 Dose: 325 mg Furosemide (Lasix Injection -) 40 mg IVPUSH Q12H [facility] Stop: 06/03/19 22:31 Heparin Sodium (Porcine) (Heparin -) 5,000 unit SQ BID [facility] Last Admin: 06/02/19 10:11 Dose: 5,000 unit Insulin Aspart (Novolog Vial Sliding Scale -) 1 vial SQ [facility]; Protocol Last Admin: 06/02/19 11:43 Dose: 4 units Insulin Detemir (Levemir Vial) 25 units SQ AM [facility] Last Admin: 06/02/19 06:09 Dose: 25 units Lactulose (Cephulac (Oral Use)) 10 gm PO BID [facility] Last Admin: 06/02/19 10:21 Dose: Not Given Metoprolol Tartrate (Lopressor -) 50 mg PO BID [facility] Last Admin: 06/02/19 10:11 Dose: 50 mg Polyethylene Glycol (Miralax (For Daily Use) -) 17 gm PO BID [facility] Last Admin: 06/02/19 10:21 Dose: Not Given Rifaximin (Xifaxan -) 550 mg PO BID [facility] Last Admin: 06/02/19 10:12 Dose: 550 mg Spironolactone (Aldactone -) 25 mg PO DAILY [facility] Last Admin: 06/02/19 10:11 Dose: 25 mg Tamsulosin HCl (Flomax -) 0.4 mg PO DAILY@0830 [facility] Last Admin: 06/02/19 08:43 Dose: 0.4 mg - Objective Vital Signs: Vital Signs Temperature 97.6 F 06/02/19 10:00 Pulse Rate 92 H 06/02/19 10:00 Respiratory Rate 19 04/19 10:00 Blood Pressure 123/55 L 06/02/19 10:00 O2 Sat by Pulse Oximetry (%) 100 06/01/19 21:00 Constitutional: Yes: Calm Cardiovascular: Yes: Regular Rate and Rhythm, S1, S2 Respiratory: Yes: Diminished, On Nasal O2 Gastrointestinal: Yes: Normal Bowel Sounds, Soft Edema: Yes (improved) Neurological: Yes: Alert, Oriented Labs: CBC, BMP 06/02/19 07:30 06/02/19 05:54 INR, PTT INR 1.30 (0.83-1.09) H 05/27/19 11:05 Problem List - Problems (1) CHF (congestive heart failure) Assessment/Plan: iv lasix with albumin echo left ventricle systolic function is severly reduced chest ct today to look at effusion Code(s): I50.9 - HEART FAILURE, UNSPECIFIED Qualifiers: Heart failure type: unspecified Heart failure chronicity: acute on chronic Qualified Code(s): I50.9 - Heart failure, unspecified (2) Ascites Assessment/Plan: iv lasix and albumin improving Code(s): R18.8 - OTHER ASCITES (3) Cirrhosis of liver Assessment/Plan: aldactone ,nadolol,rifaximin, Code(s): K74.60 - UNSPECIFIED CIRRHOSIS OF LIVER (4) Type II diabetes mellitus, uncontrolled Assessment/Plan: insulin and bgm Code(s): E11.65 - TYPE 2 DIABETES MELLITUS WITH HYPERGLYCEMIA (5) Acquired thrombocytopenia Assessment/Plan: secondary to cirrhosis platelet count is better now 93 continue to monitor Code(s): D69.59 - OTHER SECONDARY THROMBOCYTOPENIA
--- NOTE | 2019-06-02 13:28 | PN ---
Progress Note (short form) - Note Progress Note: Renal follow up for SOPHIE/CKD Seen and examined at the bedside awake and alert no acute complaints reports feeling a little better but legs remain swollen and abd remains distended no chest pain, shortness at rest Vital Signs Temperature 97.6 F 06/02/19 10:00 Pulse Rate 92 H 06/02/19 10:00 Respiratory Rate 19 06/02/19 10:00 Blood Pressure 123/55 L 06/02/19 10:00 O2 Sat by Pulse Oximetry (%) 99 06/02/19 09:00 Intake & Output 05/31/19 06/01/19 06/01/19 06/02/19 00:59 00:59 23:59 23:59 Intake Total 370 Output Total Balance 370 Weight 133.713 kg NAD awake and alert neck supple RRR CTA + abd ascities + LE edema CBC, BMP 06/02/19 07:30 06/02/19 05:54 Current Medications Albumin Human (Albumin Human 25%) 12.5 gm IVPB Q12H [facility] Stop: 06/03/19 22:01 Last Admin: 06/02/19 10:09 Dose: 12.5 gm Ascorbic Acid (Vitamin C -) 500 mg PO DAILY [facility] Last Admin: 06/02/19 10:11 Dose: 500 mg Calcium Carbonate (Os-Gerhard 500mg -) 500 mg PO DAILY [facility] Last Admin: 06/02/19 10:11 Dose: 500 mg Ferrous Sulfate (Feosol -) 325 mg PO DAILY [facility] Last Admin: 06/02/19 10:11 Dose: 325 mg Furosemide (Lasix Injection -) 40 mg IVPUSH BID@0600,1400 [facility] Heparin Sodium (Porcine) (Heparin -) 5,000 unit SQ BID [facility] Last Admin: 06/02/19 10:11 Dose: 5,000 unit Insulin Aspart (Novolog Vial Sliding Scale -) 1 vial SQ ACHS [facility]; Protocol Last Admin: 06/02/19 11:43 Dose: 4 units Insulin Detemir (Levemir Vial) 25 units SQ AM [facility] Last Admin: 06/02/19 06:09 Dose: 25 units Lactulose (Cephulac (Oral Use)) 10 gm PO BID [facility] Last Admin: 06/02/19 10:21 Dose: Not Given Metolazone (Zaroxolyn -) 2.5 mg PO DAILY@1330 [facility] Metoprolol Tartrate (Lopressor -) 50 mg PO BID [facility] Last Admin: 06/02/19 10:11 Dose: 50 mg Polyethylene Glycol (Miralax (For Daily Use) -) 17 gm PO BID [facility] Last Admin: 06/02/19 10:21 Dose: Not Given Rifaximin (Xifaxan -) 550 mg PO BID [facility] Last Admin: 06/02/19 10:12 Dose: 550 mg Spironolactone (Aldactone -) 25 mg PO DAILY [facility] Last Admin: 06/02/19 10:11 Dose: 25 mg Tamsulosin HCl (Flomax -) 0.4 mg PO DAILY@0830 [facility] Last Admin: 06/02/19 08:43 Dose: 0.4 mg 74 year old gentleman with history of Alcoholic cirrhosis, hypertension, CHF presented with shortness of breath and increased abdominal girth and admitted for worsening ascities. 1. CKD vs. SOPHIE from fluid shifts 2. Alcoholic cirrhosis with ascities 3. Anemia 4. Leukopenia/thrombocytopenia 5. CHF 6. Hypertension 7. Mild hyperkalemia Cr stable, BUN slightly uptrending. However weights have remain unchanged and clinical status is unchanged. Will change timing of BID Lasix to 6am and 2pm. Will give Metolzone 2.5mg daily starting this afternoon to increase diuresis Low salt diet, low K diet Continue aldactone for now, if K > 5.5 on next lab draw would hold. Ang Sanchez DO
[2019-06-02] MEDS: METOLAZONE 2.5 MG TABLET (FP) PO SCH (14:05)
[2019-06-02] MEDS: FUROSEMIDE 40 MG/4 ML INJECTABLE VIAL IVPUSH SCH (14:38)
--- NOTE | 2019-06-02 15:14 | PN ---
Physical Exam: Heme/Onc Service SUBJECTIVE: Patient seen and examined at bedside. No new complaints. Continues to feel fatigued. Denies SOB OBJECTIVE: Vital Signs Period Temp Pulse Resp BP Sys/Block Pulse Ox Last 24 Hr 97.5 F-98.6 F 81-97 18-22 114-143/54-91 99-100 GENERAL: The patient is awake, alert, and fully oriented, in no acute distress. HEAD: Normal with no signs of trauma. EYES: PERRL, extraocular movements intact, sclera anicteric, conjunctiva clear. No ptosis. ENT: Ears normal, nares patent, oropharynx clear without exudates, moist mucous membranes. NECK: Trachea midline, full range of motion, supple. positive JVD LUNGS: Decreased breath sounds at bases HEART: Regular rate and rhythm, S1, S2 without murmur, rub or gallop. ABDOMEN: Soft, nontender, nondistended, normoactive bowel sounds, no guarding, no rebound, no hepatosplenomegaly, no masses. Testicular exam normal EXTREMITIES: 2+ edema. PSYCH: Normal mood, normal affect. SKIN: Warm, dry, normal turgor, no rashes or lesions noted Laboratory Results - last 24 hr 06/01/19 06/01/19 06/02/19 16:25 21:50 05:54 WBC Cancelled Corrected WBC (auto) Cancelled RBC Cancelled Hgb Cancelled Hct Cancelled MCV Cancelled MCH Cancelled MCHC Cancelled RDW Cancelled Plt Count Cancelled MPV Cancelled Manual Slide Review Cancelled Platelet Comment Cancelled Sodium Potassium Chloride Carbon Dioxide Anion Gap BUN Creatinine Est GFR (CKD-EPI)AfAm Est GFR (CKD-EPI)NonAf POC Glucometer 274 313 Random Glucose Calcium Phosphorus Magnesium 06/02/19 06/02/19 06/02/19 05:54 06:00 07:30 WBC 3.6 L Corrected WBC (auto) RBC 2.97 L Hgb 10.3 L Hct 30.1 L MCV 101.6 H MCH 34.5 H MCHC 34.0 RDW 15.8 Plt Count 93 L MPV 9.9 Manual Slide Review Platelet Comment Sodium 138 Potassium 5.4 H Chloride 108 H Carbon Dioxide 25 Anion Gap 5 L BUN 52.7 H Creatinine 1.5 H Est GFR (CKD-EPI)AfAm 52.77 Est GFR (CKD-EPI)NonAf 45.53 POC Glucometer 251 Random Glucose 268 H Calcium 8.3 L Phosphorus 3.5 Magnesium 2.3 06/02/19 11:41 WBC Corrected WBC (auto) RBC Hgb Hct MCV MCH MCHC RDW Plt Count MPV Manual Slide Review Platelet Comment Sodium Potassium Chloride Carbon Dioxide Anion Gap BUN Creatinine Est GFR (CKD-EPI)AfAm Est GFR (CKD-EPI)NonAf POC Glucometer 299 Random Glucose Calcium Phosphorus Magnesium Active Medications Generic Name Dose Route Start Last Admin Trade Name Alfredo PRN Reason Stop Dose Admin Albumin Human 12.5 gm 06/02/19 10:00 06/02/19 10:09 Albumin Human 25% IVPB 06/03/19 22:01 12.5 gm Q12H [facility] Administration Ascorbic Acid 500 mg 05/28/19 10:00 06/02/19 10:11 Vitamin C - PO 500 mg DAILY [facility] Administration Calcium Carbonate 500 mg 05/28/19 10:00 06/02/19 10:11 Os-Gerhard 500mg - PO 500 mg DAILY [facility] Administration Ferrous Sulfate 325 mg 05/28/19 10:00 06/02/19 10:11 Feosol - PO 325 mg DAILY [facility] Administration Furosemide 40 mg 06/02/19 14:30 06/02/19 14:38 Lasix Injection - IVPUSH 40 mg BID@0600,1400 [facility] Administration Heparin Sodium (Porcine) 5,000 unit 05/27/19 22:00 06/02/19 10:11 Heparin - SQ 5,000 unit BID [facility] Administration Insulin Aspart 1 vial 05/27/19 17:31 06/02/19 11:43 Novolog Vial Sliding Scale - SQ 4 units ACHS [facility] Administration Protocol Insulin Detemir 25 units 05/28/19 07:00 06/02/19 06:09 Levemir Vial SQ 25 units AM [facility] Administration Lactulose 10 gm 05/27/19 22:00 06/02/19 10:21 Cephulac (Oral Use) PO Not Given BID [facility] Metolazone 2.5 mg 06/02/19 14:00 06/02/19 14:05 Zaroxolyn - PO 2.5 mg DAILY@1330 [facility] Administration Metoprolol Tartrate 50 mg 05/30/19 22:00 06/02/19 10:11 Lopressor - PO 50 mg BID [facility] Administration Polyethylene Glycol 17 gm 05/28/19 22:00 06/02/19 10:21 Miralax (For Daily Use) - PO Not Given BID [facility] Rifaximin 550 mg 05/27/19 22:00 06/02/19 10:12 Xifaxan - PO 550 mg BID [facility] Administration Spironolactone 25 mg 05/28/19 10:00 06/02/19 10:11 Aldactone - PO 25 mg DAILY [facility] Administration Tamsulosin HCl 0.4 mg 05/28/19 08:30 06/02/19 08:43 Flomax - PO 0.4 mg DAILY@0830 [facility] Administration ASSESSMENT/PLAN: 74 yo m w/ PMH HTN, CHF, COPD, Cirrhosis (2/2 etoh abuse), with varices s/p variceal banding, hepatic encephalopathy who is from [facility] for SOB. In the ED , he was found to be pancytopenic. Hematology was consulted for assistance in the evaluation of this pancytopenia. Pancytopenia likley 2/2 congetstion from cirrhosis -Ammonia elevated. Pt refusing Lactulose -elevated bili, alk phos, -B12, folate, TSH unremarkable. - Iron studies, SPEP, UPEP -will order flow cytometry/FISH/Cytogenetics -Improving slowly -AFP neg, PEP low, Urine protein 13.5, Urine Protein/Insurance Representative 0.2 -Immunology neg for M-spike -Abd US: 3.4 x 2.6 x 2.9 cm lobulated left hepatic lobe mass suspicious for HCC. Also cholelithiasis, ascites, R pleural effusio -Child-Campos: 1-2 -Will get Abd MRI Visit type - Emergency Visit Emergency Visit: No - New Patient This patient is new to me today: Yes Date on this admission: 06/03/19 - Critical Care Critical Care patient: No ATTENDING PHYSICIAN STATEMENT I saw and evaluated the patient. I reviewed the resident's note and discussed the case with the resident. I agree with the resident's findings and plan as documented. SUBJECTIVE: OBJECTIVE: ASSESSMENT AND PLAN:
--- NOTE | 2019-06-02 15:44 | PN ---
Progress Note, Physician History of Present Illness: This is a 74 y/o M with a history of NIDDM, 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 + orthopnea. Noted to havepancytopenia, ascites, coagulopathy, and elevated troponin. Echo glob HK ef 35-40 mild RVHK mod mr mod-sev TR Has atrial fibrillation Improving on Lasix 40mg IV daily and spironolactone His is not on AC or antiplatlets due to coagulopathy and liver disease - Current Medication List Current Medications: Active Medications Albumin Human (Albumin Human 25%) 12.5 gm IVPB Q12H [facility] Stop: 06/03/19 22:01 Last Admin: 06/02/19 10:09 Dose: 12.5 gm Ascorbic Acid (Vitamin C -) 500 mg PO DAILY [facility] Last Admin: 06/02/19 10:11 Dose: 500 mg Calcium Carbonate (Os-Gerhard 500mg -) 500 mg PO DAILY [facility] Last Admin: 06/02/19 10:11 Dose: 500 mg Ferrous Sulfate (Feosol -) 325 mg PO DAILY [facility] Last Admin: 06/02/19 10:11 Dose: 325 mg Furosemide (Lasix Injection -) 40 mg IVPUSH BID@0600,1400 [facility] Last Admin: 06/02/19 14:38 Dose: 40 mg Heparin Sodium (Porcine) (Heparin -) 5,000 unit SQ BID [facility] Last Admin: 06/02/19 10:11 Dose: 5,000 unit Insulin Aspart (Novolog Vial Sliding Scale -) 1 vial SQ ACHS [facility]; Protocol Last Admin: 06/02/19 11:43 Dose: 4 units Insulin Detemir (Levemir Vial) 25 units SQ AM [facility] Last Admin: 06/02/19 06:09 Dose: 25 units Lactulose (Cephulac (Oral Use)) 10 gm PO BID [facility] Last Admin: 06/02/19 10:21 Dose: Not Given Metolazone (Zaroxolyn -) 2.5 mg PO DAILY@1330 [facility] Last Admin: 06/02/19 14:05 Dose: 2.5 mg Metoprolol Tartrate (Lopressor -) 50 mg PO BID [facility] Last Admin: 06/02/19 10:11 Dose: 50 mg Polyethylene Glycol (Miralax (For Daily Use) -) 17 gm PO BID [facility] Last Admin: 06/02/19 10:21 Dose: Not Given Rifaximin (Xifaxan -) 550 mg PO BID [facility] Last Admin: 06/02/19 10:12 Dose: 550 mg Spironolactone (Aldactone -) 25 mg PO DAILY [facility] Last Admin: 06/02/19 10:11 Dose: 25 mg Tamsulosin HCl (Flomax -) 0.4 mg PO DAILY@0830 [facility] Last Admin: 06/02/19 08:43 Dose: 0.4 mg - Objective Vital Signs: Vital Signs Temperature 97.5 F L 06/02/19 14:11 Pulse Rate 82 06/02/19 14:11 Respiratory Rate 18 06/02/19 14:11 Blood Pressure 114/54 L 06/02/19 14:11 O2 Sat by Pulse Oximetry (%) 99 06/02/19 09:00 Constitutional: Yes: Well Nourished, No Distress Cardiovascular: Yes: Pulse Irregular (NL S1S2 no [facility]) Respiratory: Yes: CTA Bilaterally Edema: Yes Edema: LLE: 2+, RLE: 2+ Neurological: Yes: Alert, Oriented Labs: CBC, BMP 06/02/19 07:30 06/02/19 05:54 INR, PTT INR 1.30 (0.83-1.09) H 05/27/19 11:05 Assessment/Plan 74 y/o M with a history of NIDDM, 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 + orthopnea. Noted to havepancytopenia, ascites, coagulopathy, and elevated troponin. Echo glob HK ef 35-40 mild RVHK mod mr mod-sev TR Has atrial fibrillation His is not on AC or antiplatlets due to coagulopathy and liver disease CHF Would increase Lasix to 40mg IV BID to for more aggressive diuresis Continue aldactone 25 mg PO daily Follow I's/O's/Wt's/Lytes AFIB Rate controling with lopressor 50 mg PO BID No AC or antiplatlets due to coagulopathy and liver disease
--- NOTE | 2019-06-02 16:51 | CONSULT ---
Consult Consult Specialty:: Podiatry Reason for Consultation:: Pretrophic wounds b/l sub met 1. - History of Present Illness Chief Complaint: Hypertrophic lesions sub met 1 - Past Medical History Cardio/Vascular: Yes: CHF, HTN. No: AFIB, CAD Pulmonary: Yes: COPD Gastrointestinal: Yes: Esophageal Varices, Other (Hepatic encephalopathy) Hepatobiliary: Yes: Cirrhosis (Alcohol induced) Renal/: Yes: BPH Infectious Disease: Yes: Other (pneumonia) Endocrine: Yes: Diabetes Mellitus - Past Surgical History Past Surgical History: Yes: Hernia Repair, Upper Endoscopy - Alcohol/Substance Use Hx Alcohol Use: No History of Substance Use: reports: None, Cocaine (ex intranasal cocaine use) - Smoking History Smoking history: Former smoker Have you smoked in the past 12 months: No Aproximately how many cigarettes per day: 10 If you are a former smoker, when did you quit?: smokes daily - Social History Usual Living Arrangement: Alone ADL: Independent Occupation: son lives upstairs History of Recent Travel: No Home Medications - Allergies Allergies/Adverse Reactions: Allergies Allergy/AdvReac Type Severity Reaction Status Date / Time No Known Allergies Allergy Verified 05/27/19 10:37 - Home Medications Home Medications: Ambulatory Orders Omeprazole 20 mg PO DAILY 11/05/18 Tamsulosin HCl [Flomax] 0.4 mg PO DAILY 11/05/18 Rifaximin [Xifaxan -] 550 mg PO BID #60 tablet 11/08/18 Lactulose 10 gm PO BID 03/28/19 Spironolactone 25 mg PO DAILY 03/28/19 Insulin Sliding Scale [Novolog Vial Sliding Scale -] 1 vial SQ ACHS units 04/05 Nadolol [Corgard -] 40 mg PO DAILY tablet 04/05/19 Polyethylene Glycol 3350 [Miralax 119 gm Btl -] 34 gm PO BID bottle 04/05/19 Acetaminophen [Tylenol] 650 mg PO TID 05/27/19 Ascorbate Calcium [Vitamin C] 500 mg PO DAILY 05/27/19 Calcium (Oyster Shell) [Os-Gerhard 500Mg -] 500 mg PO DAILY 05/27/19 Dextran 70/Hypromellose/Pf [Artificial Tears Drops] 1 each OP DAILY 05/27/19 Ferrous Sulfate 325 mg PO DAILY 05/27/19 Insulin (Levemir) [Levemir Vial] 25 unit SQ AM 05/27/19 Physical Exam Vital Signs: Vital Signs Temperature 97.5 F L 06/02/19 14:11 Pulse Rate 82 06/02/19 14:11 Respiratory Rate 18 06/02/19 14:11 Blood Pressure 114/54 L 06/02/19 14:11 O2 Sat by Pulse Oximetry (%) 99 06/02/19 09:00 Extremities: Yes: Other (vsgi, +pretrophic wounds b/l feet plantar aspect, - cellulitis, -drainage, -mal odor) Labs: CBC, BMP 06/02/19 07:30 06/02/19 05:54 Assessment/Plan pretrophic wounds b/l feet Ammonium lactate BID to feet and legs. Needs offloading with orthoses secondary to neuropathy. Will follow till DC.
[2019-06-02] MEDS: AMMONIUM LACTATE 12% LOTION 225 GM BOTTLE TP SCH ×2 (17:38→21:28)
[2019-06-03] MEDS: FUROSEMIDE 40 MG/4 ML INJECTABLE VIAL IVPUSH SCH ×2 (06:27→15:10)
[2019-06-03] MEDS: INSULIN (LEVEMIR) 100 UNITS/ML UNITS SQ SCH (06:30)
[2019-06-03] MEDS: INSULIN SLIDING SCALE (NOVOLOG) 1 VIAL SQ SCH ×4 (06:30→21:25)
[2019-06-03 06:53] LABS: BASO % 1.4 % (0-2.0); HEMOGLOBIN 10.5 GM/dL (11.7-16.9); LYMPH % 21.9 % (8-40); MCH 34.5 pg (25.7-33.7); MEAN CELL VOLUME 101.5 fl (80-96); MEAN PLT VOLUME 9.5 fl (7.5-11.1); MONO % 9.8 % (3.8-10.2); NEUT % 60.9 % (42.8-82.8); PLATELET COUNT 100 K/MM3 (134-434); RBC 3.05 M/mm3 (4.00-5.60); RDW 15.7 % (11.9-15.9); WHITE BLOOD COUNT 4.2 K/mm3 (4.0-10.0)
[2019-06-03 06:59] LABS: ALBUMIN 3.1 g/dl (3.4-5.0); BILIRUBIN,TOTAL 2.4 mg/dL (0.2-1); BLOOD UREA NITROGEN 52.1 mg/dL (7-18); CALCIUM 8.7 mg/dL (8.5-10.1); CREATININE 1.5 mg/dL (0.55-1.3); PHOSPHOROUS 3.4 mg/dL (2.5-4.9); POTASSIUM 4.5 mmol/L (3.5-5.1); TOT PROT 6.3 g/dl (6.4-8.2)
--- NOTE | 2019-06-03 08:15 | PN.GI ---
GI Progress Note Subjective: Patient denies abdominal pain, nausea, vomiting, diarrhea, constipation, rectal bleeding or melena. As per RN patient has been refusing lactulose. Receiving ALbumin 25% IVPB q12h x 4 doses. - Objective Vital Signs: Vital Signs Temperature 98.1 F 06/03/19 06:00 Pulse Rate 81 06/03/19 06:00 Respiratory Rate 20 06/03/19 06:00 Blood Pressure 126/69 06/03/19 06:00 O2 Sat by Pulse Oximetry (%) 100 06/02/19 20:24 Constitutional: Calm, Mild Distress Eyes: Yes: Conjunctiva Clear HENT: Yes: Atraumatic Cardiovascular: Yes: Pulse Irregular Respiratory: Yes: Regular, Diminished, On Nasal O2, Tachypnea Gastrointestinal Inspection: Yes: Ascites. No: WNL, Distention, Hernia, Scars, Other ...Auscultate: Yes: Normoactive Bowel Sounds. No: Hyperactive Bowel Sounds, Hypoactive Bowel Sounds, No Bowel Sounds, Other ...Palpate: Yes: Soft. No: Firm/Rigid, Guarding, Hepatomegaly, Mass, Pulsatile Mass, Splenomegaly, Tenderness, Tenderness, Epigastium, Tenderness, Rebound, Other ...Percussion: Yes: Dullness. No: Fluid Wave, Tympanitic, Other Neurological: Yes: Alert Psychiatric: Yes: Alert Labs: CBC, BMP 06/03/19 06:00 06/03/19 06:00 INR, PTT INR 1.30 (0.83-1.09) H 05/27/19 11:05 Active Medications Generic Name Dose Route Start Last Admin Trade Name Freq PRN Reason Stop Dose Admin Albumin Human 12.5 gm 06/02/19 10:00 06/02/19 21:28 Albumin Human 25% IVPB 06/03/19 22:01 12.5 gm Q12H [facility] Administration Ascorbic Acid 500 mg 05/28/19 10:00 06/02/19 10:11 Vitamin C - PO 500 mg DAILY [facility] Administration Calcium Carbonate 500 mg 05/28/19 10:00 06/02/19 10:11 Os-Gerhard 500mg - PO 500 mg DAILY [facility] Administration Ferrous Sulfate 325 mg 05/28/19 10:00 06/02/19 10:11 Feosol - PO 325 mg DAILY [facility] Administration Furosemide 40 mg 06/02/19 14:30 06/03/19 06:27 Lasix Injection - IVPUSH 40 mg BID@0600,1400 [facility] Administration Heparin Sodium (Porcine) 5,000 unit 05/27/19 22:00 06/02/19 21:27 Heparin - SQ 5,000 unit BID [facility] Administration Insulin Aspart 1 vial 05/27/19 17:31 06/03/19 06:30 Novolog Vial Sliding Scale - SQ 2 units ACHS [facility] Administration Protocol Insulin Detemir 25 units 05/28/19 07:00 06/03/19 06:30 Levemir Vial SQ 25 units AM [facility] Administration Lactic Acid 1 applic 06/02/19 16:52 06/02/19 21:28 Lac-Hydrin 12 TP 1 applic BID [facility] Administration Lactulose 10 gm 05/27/19 22:00 06/02/19 21:29 Cephulac (Oral Use) PO Not Given BID [facility] Metolazone 2.5 mg 06/02/19 14:00 06/02/19 14:05 Zaroxolyn - PO 2.5 mg DAILY@1330 [facility] Administration Metoprolol Tartrate 50 mg 05/30/19 22:00 06/02/19 21:27 Lopressor - PO 50 mg BID [facility] Administration Polyethylene Glycol 17 gm 05/28/19 22:00 06/02/19 21:29 Miralax (For Daily Use) - PO Not Given BID [facility] Rifaximin 550 mg 05/27/19 22:00 06/02/19 21:27 Xifaxan - PO 550 mg BID [facility] Administration Spironolactone 25 mg 05/28/19 10:00 06/02/19 10:11 Aldactone - PO 25 mg DAILY [facility] Administration Tamsulosin HCl 0.4 mg 05/28/19 08:30 06/02/19 08:43 Flomax - PO 0.4 mg DAILY@0830 [facility] Administration Problem List - Problems (1) Cirrhosis of liver Assessment/Plan: >Lactulose, Nadolol, Spironolactone >Abdominal US reviewed >AFP neg >Abdominal MRI without contrast >re-order another Albumin 25% IVPB q12h x 4 doses >Furosemide 40mg IVP 30 min AFTER each dose of albumin then continue BID >monitor LFTs >DAILY WEIGHTS Code(s): K74.60 - UNSPECIFIED CIRRHOSIS OF LIVER (2) Hepatic encephalopathy Assessment/Plan: >Xifaxin, Lactulose >daily weights Code(s): K72.90 - HEPATIC FAILURE, UNSPECIFIED WITHOUT COMA
--- NOTE | 2019-06-03 08:35 | PN ---
Progress Note, Physician - Current Medication List Current Medications: Active Medications Albumin Human (Albumin Human 25%) 12.5 gm IVPB Q12H [facility] Stop: 06/03/19 22:01 Last Admin: 06/02/19 21:28 Dose: 12.5 gm Ascorbic Acid (Vitamin C -) 500 mg PO DAILY [facility] Last Admin: 06/02/19 10:11 Dose: 500 mg Calcium Carbonate (Os-Gerhard 500mg -) 500 mg PO DAILY [facility] Last Admin: 06/02/19 10:11 Dose: 500 mg Ferrous Sulfate (Feosol -) 325 mg PO DAILY [facility] Last Admin: 06/02/19 10:11 Dose: 325 mg Furosemide (Lasix Injection -) 40 mg IVPUSH BID@0600,1400 [facility] Last Admin: 06/03/19 06:27 Dose: 40 mg Heparin Sodium (Porcine) (Heparin -) 5,000 unit SQ BID [facility] Last Admin: 06/02/19 21:27 Dose: 5,000 unit Insulin Aspart (Novolog Vial Sliding Scale -) 1 vial SQ [facility]; Protocol Last Admin: 06/03/19 06:30 Dose: 2 units Insulin Detemir (Levemir Vial) 25 units SQ AM [facility] Last Admin: 06/03/19 06:30 Dose: 25 units Lactic Acid (Lac-Hydrin 12) 1 applic TP BID [facility] Last Admin: 06/02/19 21:28 Dose: 1 applic Lactulose (Cephulac (Oral Use)) 10 gm PO BID [facility] Last Admin: 06/02/19 21:29 Dose: Not Given Metolazone (Zaroxolyn -) 2.5 mg PO DAILY@1330 [facility] Last Admin: 06/02/19 14:05 Dose: 2.5 mg Metoprolol Tartrate (Lopressor -) 50 mg PO BID [facility] Last Admin: 06/02/19 21:27 Dose: 50 mg Polyethylene Glycol (Miralax (For Daily Use) -) 17 gm PO BID [facility] Last Admin: 06/02/19 21:29 Dose: Not Given Rifaximin (Xifaxan -) 550 mg PO BID [facility] Last Admin: 06/02/19 21:27 Dose: 550 mg Spironolactone (Aldactone -) 25 mg PO DAILY [facility] Last Admin: 06/02/19 10:11 Dose: 25 mg Tamsulosin HCl (Flomax -) 0.4 mg PO DAILY@0830 [facility] Last Admin: 06/02/19 08:43 Dose: 0.4 mg - Objective Vital Signs: Vital Signs Temperature 98.1 F 06/03/19 06:00 Pulse Rate 81 06/03/19 06:00 Respiratory Rate 20 06/03/19 06:00 Blood Pressure 126/69 06/03/19 06:00 O2 Sat by Pulse Oximetry (%) 100 06/02/19 20:24 Cardiovascular: Yes: S1, S2 Respiratory: Yes: Regular, CTA Bilaterally Gastrointestinal: Yes: Normal Bowel Sounds, Soft, Ascites, Distention Edema: Yes Labs: CBC, BMP 06/03/19 06:00 06/03/19 06:00 INR, PTT INR 1.30 (0.83-1.09) H 05/27/19 11:05 Assessment/Plan (1) SOPHIE (acute kidney injury) Assessment/Plan: -monitor renal function -Nephrology consult Code(s): N17.9 - ACUTE KIDNEY FAILURE, UNSPECIFIED (2) CHF (congestive heart failure) Assessment/Plan: -Cardiology consult -Tele monitoring -IV furosemide + Spironolactone + Zroxylyn -strict I&Os -daily weights -fluid restriction -CXR shows moderate bilateral pleural effusion with compressive atelectasis-ct scan noted Code(s): I50.9 - HEART FAILURE, UNSPECIFIED Qualifiers: Heart failure type: unspecified Heart failure chronicity: acute on chronic Qualified Code(s): I50.9 - Heart failure, unspecified (3) Troponin level elevated Assessment/Plan: -Cardiology consult noted Laboratory Tests 05/27/19 05/27/19 05/28/19 11:05 14:46 05:47 Troponin I 0.06 H 0.04 0.04 Code(s): R79.89 - OTHER SPECIFIED ABNORMAL FINDINGS OF BLOOD CHEMISTRY (4) COPD (chronic obstructive pulmonary disease) Assessment/Plan: -Pulm consult -CXR shows moderate bilateral pleural effusion with compressive atelectasis -O2 via NC -keep SpO2 >90% Code(s): J44.9 - CHRONIC OBSTRUCTIVE PULMONARY DISEASE, UNSPECIFIED (5) Hepatic encephalopathy Assessment/Plan: -Xifaxin -GI consult -Lactulose -Nadolol, Spirinolactone Laboratory Tests 05/28/19 05/31/19 12:22 05:48 Ammonia 137.60 H 98.90 H Code(s): K72.90 - HEPATIC FAILURE, UNSPECIFIED WITHOUT COMA (6) Type II diabetes mellitus, uncontrolled Assessment/Plan: -[facility] -ISS -Levemir -HgA1c 5.5 Code(s): E11.65 - TYPE 2 DIABETES MELLITUS WITH HYPERGLYCEMIA (7) Pancytopenia Assessment/Plan: -Hematology consult -Monitor daily labs -Transfuse for Hg<7.0 to avoid fluid overload Code(s): D61.818 - OTHER PANCYTOPENIA
[2019-06-03] MEDS: CALCIUM (OYSTER SHELL) 500 MG TABLET (FP) PO SCH (09:22)
[2019-06-03] MEDS: METOPROLOL TARTRATE 50 MG TABLET (FP) PO SCH ×2 (09:22→21:25)
[2019-06-03] MEDS: ASCORBIC ACID 500 MG TABLET (FP) PO SCH (09:22)
[2019-06-03] MEDS: TAMSULOSIN HCL 0.4 MG CAP PO SCH (09:22)
[2019-06-03] MEDS: FERROUS SO4 325 MG TABLET (FP) PO SCH (09:22)
[2019-06-03] MEDS: HEPARIN NA (PORCINE) 5,000 UNITS/ML 1ML VIAL SQ SCH (09:23)
[2019-06-03] MEDS: RIFAXIMIN 550 MG TABLET (UD) PO SCH (09:23)
[2019-06-03] MEDS: SPIRONOLACTONE 25 MG TABLET (FP) PO SCH (09:23)
[2019-06-03] MEDS: POLYETHYLENE GLYCOL 3350 119 GM BTL PO SCH ×2 (09:24→21:23)
[2019-06-03] MEDS: AMMONIUM LACTATE 12% LOTION 225 GM BOTTLE TP SCH ×2 (09:30→21:25)
[2019-06-03] MEDS: LACTULOSE 20 GM/30 ML UDC (FOR ORAL USE ONLY) PO SCH ×2 (09:32→21:24)
--- NOTE | 2019-06-03 09:57 | PN ---
Progress Note, Physician History of Present Illness: seen and examined today in nad. sitting on side of bed. states he is feeling better. - Current Medication List Current Medications: Active Medications Albumin Human (Albumin Human 25%) 12.5 gm IVPB Q12H [facility] Stop: 06/03/19 22:01 Last Admin: 06/02/19 21:28 Dose: 12.5 gm Ascorbic Acid (Vitamin C -) 500 mg PO DAILY [facility] Last Admin: 06/03/19 09:22 Dose: 500 mg Calcium Carbonate (Os-Gerhard 500mg -) 500 mg PO DAILY [facility] Last Admin: 06/03/19 09:22 Dose: 500 mg Ferrous Sulfate (Feosol -) 325 mg PO DAILY [facility] Last Admin: 06/03/19 09:22 Dose: 325 mg Furosemide (Lasix Injection -) 40 mg IVPUSH BID@0600,1400 [facility] Last Admin: 06/03/19 06:27 Dose: 40 mg Heparin Sodium (Porcine) (Heparin -) 5,000 unit SQ BID [facility] Last Admin: 06/03/19 09:23 Dose: 5,000 unit Insulin Aspart (Novolog Vial Sliding Scale -) 1 vial SQ [facility]; Protocol Last Admin: 06/03/19 06:30 Dose: 2 units Insulin Detemir (Levemir Vial) 25 units SQ AM [facility] Last Admin: 06/03/19 06:30 Dose: 25 units Lactic Acid (Lac-Hydrin 12) 1 applic TP BID [facility] Last Admin: 06/03/19 09:30 Dose: 1 applic Lactulose (Cephulac (Oral Use)) 10 gm PO BID [facility] Last Admin: 06/03/19 09:32 Dose: 10 gm Metolazone (Zaroxolyn -) 2.5 mg PO DAILY@1330 [facility] Last Admin: 06/02/19 14:05 Dose: 2.5 mg Metoprolol Tartrate (Lopressor -) 50 mg PO BID [facility] Last Admin: 06/03/19 09:22 Dose: 50 mg Polyethylene Glycol (Miralax (For Daily Use) -) 17 gm PO BID [facility] Last Admin: 06/03/19 09:24 Dose: Not Given Rifaximin (Xifaxan -) 550 mg PO BID [facility] Last Admin: 06/03/19 09:23 Dose: 550 mg Spironolactone (Aldactone -) 25 mg PO DAILY [facility] Last Admin: 06/03/19 09:23 Dose: 25 mg Tamsulosin HCl (Flomax -) 0.4 mg PO DAILY@0830 [facility] Last Admin: 06/03/19 09:22 Dose: 0.4 mg - Objective Vital Signs: Vital Signs Temperature 98.1 F 06/03/19 09:33 Pulse Rate 89 06/03/19 09:33 Respiratory Rate 20 06/03/19 09:33 Blood Pressure 126/63 06/03/19 09:33 O2 Sat by Pulse Oximetry (%) 100 06/02/19 20:24 Constitutional: Yes: No Distress, Calm Eyes: Yes: Conjunctiva Clear, EOM Intact HENT: Yes: Atraumatic, Normocephalic Neck: Yes: Supple, Trachea Midline Cardiovascular: Yes: Pulse Irregular, S1, S2. No: Regular Rate and Rhythm, Bradycardia, Tachycardia, Bruit, JVD, Gallop, Murmur, Rub, S3, S4, Varicosities Respiratory: Yes: Regular, Diminished, On Nasal O2, Wheezes. No: Rales, Rhonchi , SOB Gastrointestinal: Yes: Normal Bowel Sounds, Soft. No: Distention, Tenderness Edema: Yes Edema: LLE: 1+, RLE: 1+ Peripheral Pulses WNL: Yes Peripheral Pulses: Left Doralis Pedis: 2+, Right Dorsalis Pedis: 2+ Neurological: Yes: Alert, Oriented Psychiatric: Yes: Alert, Oriented Labs: CBC, BMP 06/03/19 06:00 06/03/19 06:00 INR, PTT INR 1.30 (0.83-1.09) H 05/27/19 11:05 - ....Imaging Chest X-ray: Report Reviewed, Image Reviewed EKG: Report Reviewed, Image Reviewed Other: Report Reviewed, Image Reviewed (tele-af, hr adequate) Assessment/Plan 74 y/o M with a history of NIDDM, 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 + orthopnea. Noted to havepancytopenia, ascites, coagulopathy, and elevated troponin. Echo glob HK ef 35-40 mild RVHK mod mr mod-sev TR Has atrial fibrillation His is not on AC or antiplatlets due to coagulopathy and liver disease CHF receiving Lasix 40mg IV BID with metolazone Continue aldactone 25 mg PO daily -on lung exam, no sig pulm edema, still has peripheral edema but improved -I/Os net positive and recorded weight unchanged, unknown if accurate recordings Follow I's/O's/Wt's/Lytes AFIB Rate controling with lopressor 50 mg PO BID No AC or antiplatlets due to coagulopathy and liver disease
[2019-06-03] MEDS ORDERED: INSULIN SLIDING SCALE (NOVOLOG) 1 VIAL SQ ONE (10:48)
[2019-06-03] MEDS: ALBUMIN HUMAN 25% 12.5 GM/50 ML VIAL IVPB SCH ×2 (10:50→21:24)
--- NOTE | 2019-06-03 11:08 | PN ---
Progress Note, Physician History of Present Illness: pulmonary alert,feeling better,less dyspneic - Current Medication List Current Medications: Active Medications Albumin Human (Albumin Human 25%) 12.5 gm IVPB Q12H [facility] Stop: 06/03/19 22:01 Last Admin: 06/02/19 21:28 Dose: 12.5 gm Ascorbic Acid (Vitamin C -) 500 mg PO DAILY [facility] Last Admin: 06/03/19 09:22 Dose: 500 mg Calcium Carbonate (Os-Gerhard 500mg -) 500 mg PO DAILY [facility] Last Admin: 06/03/19 09:22 Dose: 500 mg Ferrous Sulfate (Feosol -) 325 mg PO DAILY [facility] Last Admin: 06/03/19 09:22 Dose: 325 mg Furosemide (Lasix Injection -) 40 mg IVPUSH BID@0600,1400 [facility] Last Admin: 06/03/19 06:27 Dose: 40 mg Heparin Sodium (Porcine) (Heparin -) 5,000 unit SQ BID [facility] Last Admin: 06/03/19 09:23 Dose: 5,000 unit Insulin Aspart (Novolog Vial Sliding Scale -) 1 vial SQ [facility]; Protocol Last Admin: 06/03/19 06:30 Dose: 2 units Insulin Detemir (Levemir Vial) 25 units SQ AM [facility] Last Admin: 06/03/19 06:30 Dose: 25 units Lactic Acid (Lac-Hydrin 12) 1 applic TP BID [facility] Last Admin: 06/03/19 09:30 Dose: 1 applic Lactulose (Cephulac (Oral Use)) 10 gm PO BID [facility] Last Admin: 06/03/19 09:32 Dose: 10 gm Metolazone (Zaroxolyn -) 2.5 mg PO DAILY@1330 [facility] Last Admin: 06/02/19 14:05 Dose: 2.5 mg Metoprolol Tartrate (Lopressor -) 50 mg PO BID [facility] Last Admin: 06/03/19 09:22 Dose: 50 mg Polyethylene Glycol (Miralax (For Daily Use) -) 17 gm PO BID [facility] Last Admin: 06/03/19 09:24 Dose: Not Given Rifaximin (Xifaxan -) 550 mg PO BID [facility] Last Admin: 06/03/19 09:23 Dose: 550 mg Spironolactone (Aldactone -) 25 mg PO DAILY [facility] Last Admin: 06/03/19 09:23 Dose: 25 mg Tamsulosin HCl (Flomax -) 0.4 mg PO DAILY@0830 [facility] Last Admin: 06/03/19 09:22 Dose: 0.4 mg - Objective Vital Signs: Vital Signs Temperature 98.1 F 06/03/19 09:33 Pulse Rate 89 06/03/19 09:33 Respiratory Rate 20 06/03/19 09:33 Blood Pressure 126/63 06/03/19 09:33 O2 Sat by Pulse Oximetry (%) 100 06/02/19 20:24 Constitutional: Yes: Calm, Obese Eyes: Yes: WNL HENT: Yes: WNL Neck: Yes: WNL Cardiovascular: Yes: Pulse Irregular, S1, S2 Respiratory: Yes: Diminished Gastrointestinal: Yes: Normal Bowel Sounds, Soft, Abdomen, Obese Extremities: Yes: WNL Edema: Yes Labs: CBC, BMP 06/03/19 06:00 06/03/19 06:00 INR, PTT INR 1.30 (0.83-1.09) H 05/27/19 11:05 - ....Imaging Cat Scan: Report Reviewed, Image Reviewed (BILATERAL PLEURAL EFFUSIONS R>L) Problem List - Problems (1) SOPHIE (acute kidney injury) Code(s): N17.9 - ACUTE KIDNEY FAILURE, UNSPECIFIED (2) CHF (congestive heart failure) Code(s): I50.9 - HEART FAILURE, UNSPECIFIED Qualifiers: Heart failure type: unspecified Heart failure chronicity: acute on chronic Qualified Code(s): I50.9 - Heart failure, unspecified (3) Pancytopenia Code(s): D61.818 - OTHER PANCYTOPENIA (4) Acute renal failure (ARF) Code(s): N17.9 - ACUTE KIDNEY FAILURE, UNSPECIFIED (5) Altered mental status Code(s): R41.82 - ALTERED MENTAL STATUS, UNSPECIFIED Qualifiers: Altered mental status type: disorientation Qualified Code(s): R41.0 - Disorientation, unspecified (6) Anemia Code(s): D64.9 - ANEMIA, UNSPECIFIED (7) COPD (chronic obstructive pulmonary disease) Code(s): J44.9 - CHRONIC OBSTRUCTIVE PULMONARY DISEASE, UNSPECIFIED (8) Chronic systolic congestive heart failure Code(s): I50.22 - CHRONIC SYSTOLIC (CONGESTIVE) HEART FAILURE (9) Cirrhosis of liver Code(s): K74.60 - UNSPECIFIED CIRRHOSIS OF LIVER (10) Esophageal varices Code(s): I85.00 - ESOPHAGEAL VARICES WITHOUT BLEEDING (11) Hepatic encephalopathy Code(s): K72.90 - HEPATIC FAILURE, UNSPECIFIED WITHOUT COMA (12) Hypoxia Code(s): R09.02 - HYPOXEMIA (13) Acute on chronic respiratory failure with hypoxia and hypercapnia Code(s): J96.21 - ACUTE AND CHRONIC RESPIRATORY FAILURE WITH HYPOXIA; J96.22 - ACUTE AND CHRONIC RESPIRATORY FAILURE WITH HYPERCAPNIA Assessment/Plan CONSULTATION DICTATED 05/08/19 IMP DYSPNEA IMPROVING CHF IMPROVING ACUTE ON CHRONIC HYPOXEMIC/HYPERCAPNEIC RESPIRATORY FAILURE IMPROVING VOLUME OVERLOAD IMPROVING ASCITES COPD O2 DEPENDENT PLEURAL EFFUSION HEPATIC ENCEPHALOPATHY DM CIRRHOSIS WITH ESOPHAGEAL VARICES S/P BANDING PANCYTOPENIA SLOWLY IMPROVING SOPHIE H/O ETOH PLAN CONTINUE DIURETICS O2 DAILY WT MONITOR LYTES,RENAL FUNCTION MONITOR H+H DR COLLAZO Problem List - Problems (1) SOPHIE (acute kidney injury) Code(s): N17.9 - ACUTE KIDNEY FAILURE, UNSPECIFIED (2) CHF (congestive heart failure) Code(s): I50.9 - HEART FAILURE, UNSPECIFIED Qualifiers: Heart failure type: unspecified Heart failure chronicity: acute on chronic Qualified Code(s): I50.9 - Heart failure, unspecified (3) Pancytopenia Code(s): D61.818 - OTHER PANCYTOPENIA (4) Acute renal failure (ARF) Code(s): N17.9 - ACUTE KIDNEY FAILURE, UNSPECIFIED (5) Altered mental status Code(s): R41.82 - ALTERED MENTAL STATUS, UNSPECIFIED Qualifiers: Altered mental status type: disorientation Qualified Code(s): R41.0 - Disorientation, unspecified (6) Anemia Code(s): D64.9 - ANEMIA, UNSPECIFIED (7) COPD (chronic obstructive pulmonary disease) Code(s): J44.9 - CHRONIC OBSTRUCTIVE PULMONARY DISEASE, UNSPECIFIED (8) Chronic systolic congestive heart failure Code(s): I50.22 - CHRONIC SYSTOLIC (CONGESTIVE) HEART FAILURE (9) Cirrhosis of liver Code(s): K74.60 - UNSPECIFIED CIRRHOSIS OF LIVER (10) Esophageal varices Code(s): I85.00 - ESOPHAGEAL VARICES WITHOUT BLEEDING (11) Hepatic encephalopathy Code(s): K72.90 - HEPATIC FAILURE, UNSPECIFIED WITHOUT COMA (12) Hypoxia Code(s): R09.02 - HYPOXEMIA (13) Acute on chronic respiratory failure with hypoxia and hypercapnia Code(s): J96.21 - ACUTE AND CHRONIC RESPIRATORY FAILURE WITH HYPOXIA; J96.22 - ACUTE AND CHRONIC RESPIRATORY FAILURE WITH HYPERCAPNIA
--- NOTE | 2019-06-03 12:38 | PN ---
Progress Note (short form) - Note Progress Note: Renal follow up for SOPHIE/CKD Seen and examined at the bedside awake and alert no acute complaints making urine no dizziness, cp, sob, fever or chills Vital Signs Temperature 98.1 F 06/03/19 09:33 Pulse Rate 89 06/03/19 09:33 Respiratory Rate 20 06/03/19 09:33 Blood Pressure 126/63 06/03/19 09:33 O2 Sat by Pulse Oximetry (%) 100 06/03/19 09:00 Intake & Output 06/01/19 06/01/19 06/02/19 06/03/19 00:59 23:59 23:59 23:59 Intake Total 1080 350 Output Total 825 350 Balance 255 0 Weight 133.713 kg NAD awake and alert neck supple RRR CTA + abd ascities + LE edema CBC, BMP 06/03/19 06:00 06/03/19 06:00 Current Medications Albumin Human (Albumin Human 25%) 12.5 gm IVPB Q12H [facility] Stop: 06/03/19 22:01 Last Admin: 06/03/19 10:50 Dose: 12.5 gm Ascorbic Acid (Vitamin C -) 500 mg PO DAILY [facility] Last Admin: 06/03/19 09:22 Dose: 500 mg Calcium Carbonate (Os-Gerhard 500mg -) 500 mg PO DAILY [facility] Last Admin: 06/03/19 09:22 Dose: 500 mg Ferrous Sulfate (Feosol -) 325 mg PO DAILY [facility] Last Admin: 06/03/19 09:22 Dose: 325 mg Furosemide (Lasix Injection -) 40 mg IVPUSH BID@0600,1400 [facility] Last Admin: 06/03/19 06:27 Dose: 40 mg Heparin Sodium (Porcine) (Heparin -) 5,000 unit SQ BID [facility] Last Admin: 06/03/19 09:23 Dose: 5,000 unit Insulin Aspart (Novolog Vial Sliding Scale -) 1 vial SQ ACHS [facility]; Protocol Last Admin: 06/03/19 11:06 Dose: 4 units Insulin Detemir (Levemir Vial) 25 units SQ AM [facility] Last Admin: 06/03/19 06:30 Dose: 25 units Lactic Acid (Lac-Hydrin 12) 1 applic TP BID [facility] Last Admin: 06/03/19 09:30 Dose: 1 applic Lactulose (Cephulac (Oral Use)) 10 gm PO BID [facility] Last Admin: 06/03/19 09:32 Dose: 10 gm Metolazone (Zaroxolyn -) 2.5 mg PO DAILY@1330 [facility] Last Admin: 06/02/19 14:05 Dose: 2.5 mg Metoprolol Tartrate (Lopressor -) 50 mg PO BID [facility] Last Admin: 06/03/19 09:22 Dose: 50 mg Polyethylene Glycol (Miralax (For Daily Use) -) 17 gm PO BID [facility] Last Admin: 06/03/19 09:24 Dose: Not Given Rifaximin (Xifaxan -) 550 mg PO BID [facility] Last Admin: 06/03/19 09:23 Dose: 550 mg Spironolactone (Aldactone -) 25 mg PO DAILY [facility] Last Admin: 06/03/19 09:23 Dose: 25 mg Tamsulosin HCl (Flomax -) 0.4 mg PO DAILY@0830 [facility] Last Admin: 06/03/19 09:22 Dose: 0.4 mg 74 year old gentleman with history of Alcoholic cirrhosis, hypertension, CHF presented with shortness of breath and increased abdominal girth and admitted for worsening ascities. 1. CKD vs. SOPHIE from fluid shifts 2. Alcoholic cirrhosis with ascities 3. Anemia 4. Leukopenia/thrombocytopenia 5. CHF 6. Hypertension 7. Mild hyperkalemia Renal function stable Todays weight not yet recorded Continue diuresis with Lasix 40mg IV BID, Metolazone 2.5mg Daily, Aldactone 25mg Daily Trend daily weights, electrolytes and renal function Ang Sanchez DO
[2019-06-03] MEDS: METOLAZONE 2.5 MG TABLET (FP) PO SCH (13:00)
--- NOTE | 2019-06-03 13:37 | PN ---
Physical Exam: Heme/Onc Service SUBJECTIVE: Patient seen and examined at bedside. No acute events. Pt feels roughly the same. OBJECTIVE: Vital Signs Period Temp Pulse Resp BP Sys/Block Pulse Ox Last 24 Hr 97.5 F-98.2 F 81-92 18-20 114-131/54-69 100-100 GENERAL: The patient is awake, alert, and fully oriented, in no acute distress. HEAD: Normal with no signs of trauma. EYES: PERRL, extraocular movements intact, sclera anicteric, conjunctiva clear. No ptosis. ENT: Ears normal, nares patent, oropharynx clear without exudates, moist mucous membranes. NECK: Trachea midline, full range of motion, supple. positive JVD LUNGS: Decreased breath sounds at bases HEART: Regular rate and rhythm, S1, S2 without murmur, rub or gallop. ABDOMEN: Soft, nontender, nondistended, normoactive bowel sounds, no guarding, no rebound, no hepatosplenomegaly, no masses. EXTREMITIES: 2+ edema. PSYCH: Normal mood, normal affect. SKIN: Warm, dry, normal turgor, no rashes or lesions noted Laboratory Results - last 24 hr 06/02/19 06/02/19 06/03/19 17:04 21:31 06:00 WBC 4.2 RBC 3.05 L Hgb 10.5 L Hct 31.0 L MCV 101.5 H MCH 34.5 H MCHC 34.0 RDW 15.7 Plt Count 100 L MPV 9.5 Absolute Neuts (auto) 2.6 Neutrophils % 60.9 D Lymphocytes % 21.9 D Monocytes % 9.8 Eosinophils % 6.0 H Basophils % 1.4 Nucleated RBC % 0 Sodium Potassium Chloride Carbon Dioxide Anion Gap BUN Creatinine Est GFR (CKD-EPI)AfAm Est GFR (CKD-EPI)NonAf POC Glucometer 304 297 Random Glucose Calcium Phosphorus Total Bilirubin AST ALT Alkaline Phosphatase Total Protein Albumin 06/03/19 06/03/19 06/03/19 06:00 06:29 11:04 WBC RBC Hgb Hct MCV MCH MCHC RDW Plt Count MPV Absolute Neuts (auto) Neutrophils % Lymphocytes % Monocytes % Eosinophils % Basophils % Nucleated RBC % Sodium 137 Potassium 4.5 Chloride 104 Carbon Dioxide 29 Anion Gap 5 L BUN 52.1 H Creatinine 1.5 H Est GFR (CKD-EPI)AfAm 52.77 Est GFR (CKD-EPI)NonAf 45.53 POC Glucometer 243 299 Random Glucose 262 H Calcium 8.7 Phosphorus 3.4 Total Bilirubin 2.4 H AST 34 ALT 40 Alkaline Phosphatase 246 H Total Protein 6.3 L Albumin 3.1 L Active Medications Generic Name Dose Route Start Last Admin Trade Name Freq PRN Reason Stop Dose Admin Albumin Human 12.5 gm 06/02/19 10:00 06/03/19 10:50 Albumin Human 25% IVPB 06/03/19 22:01 12.5 gm Q12H [facility] Administration Ascorbic Acid 500 mg 05/28/19 10:00 06/03/19 09:22 Vitamin C - PO 500 mg DAILY [facility] Administration Calcium Carbonate 500 mg 05/28/19 10:00 06/03/19 09:22 Os-Gerhadr 500mg - PO 500 mg DAILY [facility] Administration Ferrous Sulfate 325 mg 05/28/19 10:00 06/03/19 09:22 Feosol - PO 325 mg DAILY [facility] Administration Furosemide 40 mg 06/02/19 14:30 06/03/19 06:27 Lasix Injection - IVPUSH 40 mg BID@0600,1400 [facility] Administration Heparin Sodium (Porcine) 5,000 unit 05/27/19 22:00 06/03/19 09:23 Heparin - SQ 5,000 unit BID [facility] Administration Insulin Aspart 1 vial 05/27/19 17:31 06/03/19 11:06 Novolog Vial Sliding Scale - SQ 4 units ACHS [facility] Administration Protocol Insulin Detemir 25 units 05/28/19 07:00 06/03/19 06:30 Levemir Vial SQ 25 units AM [facility] Administration Lactic Acid 1 applic 06/02/19 16:52 06/03/19 09:30 Lac-Hydrin 12 TP 1 applic BID [facility] Administration Lactulose 10 gm 05/27/19 22:00 06/03/19 09:32 Cephulac (Oral Use) PO 10 gm BID [facility] Administration Metolazone 2.5 mg 06/02/19 14:00 06/03/19 13:00 Zaroxolyn - PO 2.5 mg DAILY@1330 [facility] Administration Metoprolol Tartrate 50 mg 05/30/19 22:00 06/03/19 09:22 Lopressor - PO 50 mg BID [facility] Administration Polyethylene Glycol 17 gm 05/28/19 22:00 06/03/19 09:24 Miralax (For Daily Use) - PO Not Given BID [facility] Rifaximin 550 mg 05/27/19 22:00 06/03/19 09:23 Xifaxan - PO 550 mg BID [facility] Administration Spironolactone 25 mg 05/28/19 10:00 06/03/19 09:23 Aldactone - PO 25 mg DAILY [facility] Administration Tamsulosin HCl 0.4 mg 05/28/19 08:30 06/03/19 09:22 Flomax - PO 0.4 mg DAILY@0830 [facility] Administration ASSESSMENT/PLAN: 74 yo m w/ PMH HTN, CHF, COPD, Cirrhosis (2/2 etoh abuse), with varices s/p variceal banding, hepatic encephalopathy who is from [facility] [employer]. In the ED , he was found to be pancytopenic. Hematology was consulted for assistance in the evaluation of this pancytopenia. Pancytopenia likley 2/2 congetstion from cirrhosis -Ammonia elevated. Pt refusing Lactulose -elevated bili, alk phos, -B12, folate, TSH unremarkable. - Iron studies, SPEP, UPEP -flow cytometry/FISH/Cytogenetics pending -Improving slowly -AFP neg, PEP low, Urine protein 13.5, Urine Protein/Repair Manager 0.2 -Immunology neg for M-spike -Abd US: 3.4 x 2.6 x 2.9 cm lobulated left hepatic lobe mass suspicious for HCC. Also cholelithiasis, ascites, R pleural effusio -Child-Campos: 1-2 -Abd MRI pending Visit type - Emergency Visit Emergency Visit: No - New Patient This patient is new to me today: No - Critical Care Critical Care patient: No ATTENDING PHYSICIAN STATEMENT I saw and evaluated the patient. I reviewed the resident's note and discussed the case with the resident. I agree with the resident's findings and plan as documented. SUBJECTIVE: OBJECTIVE: ASSESSMENT AND PLAN:
[2019-06-03] MEDS ORDERED: PT OWN MED DRAWER 7, Y5N ONE (21:01)
[2019-06-04] MEDS ORDERED: ALBUTEROL SO4 2.5/IPRATROPIUM 0.5 INH SOL 3 ML VIAL.NEB. NEB ONE (04:08)
[2019-06-04] MEDS: FUROSEMIDE 40 MG/4 ML INJECTABLE VIAL IVPUSH SCH ×2 (06:30→14:17)
[2019-06-04] MEDS: INSULIN (LEVEMIR) 100 UNITS/ML UNITS SQ SCH (06:30)
[2019-06-04] MEDS: INSULIN SLIDING SCALE (NOVOLOG) 1 VIAL SQ SCH ×4 (06:30→21:04)
[2019-06-04 06:52] LABS: BASO % 2.3 % (0-2.0); EOS % 5.1 % (0-4.5); HEMATOCRIT 28.7 % (35.4-49); HEMOGLOBIN 9.7 GM/dL (11.7-16.9); LYMPH % 17.6 % (8-40); MCH 34.6 pg (25.7-33.7); MCHC 33.9 g/dl (32.0-35.9); MEAN CELL VOLUME 102.1 fl (80-96); MEAN PLT VOLUME 9.8 fl (7.5-11.1); MONO % 12.1 % (3.8-10.2); NEUT % 62.9 % (42.8-82.8); PLATELET COUNT 96 K/MM3 (134-434); RBC 2.81 M/mm3 (4.00-5.60); RDW 15.4 % (11.9-15.9); WHITE BLOOD COUNT 3.9 K/mm3 (4.0-10.0)
[2019-06-04 07:19] LABS: ALBUMIN 3.2 g/dl (3.4-5.0); BILIRUBIN,TOTAL 2.8 mg/dL (0.2-1); BLOOD UREA NITROGEN 54.5 mg/dL (7-18); CALCIUM 8.7 mg/dL (8.5-10.1); CREATININE 1.4 mg/dL (0.55-1.3); MAGNESIUM 2.4 mg/dL (1.8-2.4); PHOSPHOROUS 3.6 mg/dL (2.5-4.9); POTASSIUM 4.5 mmol/L (3.5-5.1); TOT PROT 6.2 g/dl (6.4-8.2)
[2019-06-04] MEDS ORDERED: SPIRONOLACTONE 25 MG TABLET (FP) PO SCH (08:11)
--- NOTE | 2019-06-04 08:35 | PN.GI ---
GI Progress Note Subjective: Patient denies abdominal pain, vomiting, diarrhea, rectal bleeding, or melena. Completed Albumin x 4 doses. Weight continues to stay the same with current weight 295lbs. Unable to get proper weights due to patients non-compliance with daily weights and following fluid restriction. - Objective Vital Signs: Vital Signs Temperature 98.3 F 06/04/19 06:00 Pulse Rate 71 06/04/19 06:00 Respiratory Rate 20 06/04/19 06:00 Blood Pressure 132/69 06/04/19 06:00 O2 Sat by Pulse Oximetry (%) 100 06/03/19 21:00 Constitutional: No Distress, Calm Eyes: Yes: Conjunctiva Clear HENT: Yes: Atraumatic Cardiovascular: Yes: Pulse Irregular Respiratory: Yes: Regular, Diminished, On Nasal O2 Gastrointestinal Inspection: Yes: Ascites. No: WNL, Distention, Hernia, Scars, Other ...Auscultate: Yes: Normoactive Bowel Sounds. No: Hyperactive Bowel Sounds, Hypoactive Bowel Sounds, No Bowel Sounds, Other ...Palpate: Yes: Soft. No: Firm/Rigid, Guarding, Hepatomegaly, Mass, Pulsatile Mass, Splenomegaly, Tenderness, Tenderness, Epigastium, Tenderness, Rebound, Other ...Percussion: Yes: Tympanitic. No: Dullness, Fluid Wave, Other Neurological: Yes: Alert, Oriented Psychiatric: Yes: Alert, Oriented Labs: CBC, BMP 06/04/19 06:15 06/04/19 06:15 INR, PTT INR 1.30 (0.83-1.09) H 05/27/19 11:05 Microbiology 05/27/19 15:40 Urine - Urine Clean Catch Urine Culture - Final NO GROWTH OBTAINED Problem List - Problems (1) Cirrhosis of liver Assessment/Plan: >Lactulose, Nadolol, Spironolactone >Abdominal US reviewed >AFP neg >Abdominal MRI without contrast >Albumin 25% IVPB q12h x 4 doses completed >Furosemide 40mg IVP BID >monitor LFTs >DAILY WEIGHTS >Metozalone was added to regimen >Follow renal suggestion in regards to ascites/fluid management and recall as needed Code(s): K74.60 - UNSPECIFIED CIRRHOSIS OF LIVER (2) Hepatic encephalopathy Assessment/Plan: >Xifaxin, Lactulose >daily weights >resolved, recall as needed Code(s): K72.90 - HEPATIC FAILURE, UNSPECIFIED WITHOUT COMA
--- NOTE | 2019-06-04 08:46 | PN ---
Progress Note, Physician - Current Medication List Current Medications: Active Medications Ascorbic Acid (Vitamin C -) 500 mg PO DAILY [facility] Last Admin: 06/03/19 09:22 Dose: 500 mg Calcium Carbonate (Os-Gerhard 500mg -) 500 mg PO DAILY [facility] Last Admin: 06/03/19 09:22 Dose: 500 mg Ferrous Sulfate (Feosol -) 325 mg PO DAILY [facility] Last Admin: 06/03/19 09:22 Dose: 325 mg Furosemide (Lasix Injection -) 40 mg IVPUSH BID@0600,1400 [facility] Last Admin: 06/04/19 06:30 Dose: 40 mg Insulin Aspart (Novolog Vial Sliding Scale -) 1 vial SQ ACHS [facility]; Protocol Last Admin: 06/04/19 06:30 Dose: 2 units Insulin Detemir (Levemir Vial) 25 units SQ AM [facility] Last Admin: 06/04/19 06:30 Dose: 25 units Lactic Acid (Lac-Hydrin 12) 1 applic TP BID [facility] Last Admin: 06/03/19 21:25 Dose: 1 applic Lactulose (Cephulac (Oral Use)) 10 gm PO BID [facility] Last Admin: 06/03/19 21:24 Dose: 10 gm Metolazone (Zaroxolyn -) 2.5 mg PO DAILY@1330 [facility] Last Admin: 06/03/19 13:00 Dose: 2.5 mg Metoprolol Tartrate (Lopressor -) 50 mg PO BID [facility] Last Admin: 06/03/19 21:25 Dose: 50 mg Polyethylene Glycol (Miralax (For Daily Use) -) 17 gm PO BID [facility] Last Admin: 06/03/19 21:23 Dose: Not Given Spironolactone (Aldactone -) 25 mg PO DAILY [facility] Tamsulosin HCl (Flomax -) 0.4 mg PO DAILY@0830 [facility] Last Admin: 06/03/19 09:22 Dose: 0.4 mg - Objective Vital Signs: Vital Signs Temperature 98.3 F 06/04/19 06:00 Pulse Rate 71 06/04/19 06:00 Respiratory Rate 20 06/04/19 06:00 Blood Pressure 132/69 06/04/19 06:00 O2 Sat by Pulse Oximetry (%) 100 06/03/19 21:00 Cardiovascular: Yes: S1, S2 Respiratory: Yes: Regular, CTA Bilaterally Gastrointestinal: Yes: Normal Bowel Sounds, Soft, Abdomen, Obese, Ascites Edema: Yes Edema: LLE: 3+, RLE: 3+ Labs: CBC, BMP 06/04/19 06:15 06/04/19 06:15 INR, PTT INR 1.30 (0.83-1.09) H 05/27/19 11:05 Assessment/Plan (1) SOPHIE (acute kidney injury) Assessment/Plan: -monitor renal function -Nephrology consult Code(s): N17.9 - ACUTE KIDNEY FAILURE, UNSPECIFIED (2) CHF (congestive heart failure) Assessment/Plan: -Cardiology consult -Tele monitoring -IV furosemide + Spironolactone + Zroxylyn -strict I&Os -daily weights -fluid restriction -CXR shows moderate bilateral pleural effusion with compressive atelectasis-ct scan noted Code(s): I50.9 - HEART FAILURE, UNSPECIFIED Qualifiers: Heart failure type: unspecified Heart failure chronicity: acute on chronic Qualified Code(s): I50.9 - Heart failure, unspecified (3) Troponin level elevated Assessment/Plan: -Cardiology consult noted Laboratory Tests 05/27/19 05/27/19 05/28/19 11:05 14:46 05:47 Troponin I 0.06 H 0.04 0.04 Code(s): R79.89 - OTHER SPECIFIED ABNORMAL FINDINGS OF BLOOD CHEMISTRY (4) COPD (chronic obstructive pulmonary disease) Assessment/Plan: -Pulm consult -CXR shows moderate bilateral pleural effusion with compressive atelectasis -O2 via NC -keep SpO2 >90% Code(s): J44.9 - CHRONIC OBSTRUCTIVE PULMONARY DISEASE, UNSPECIFIED (5) Hepatic encephalopathy Assessment/Plan: -Xifaxin -GI consult -Cirrhosis--Liver mass--MRI -Lactulose -Nadolol, Spirinolactone Laboratory Tests 05/28/19 05/31/19 12:22 05:48 Ammonia 137.60 H 98.90 H Repeat ammonia Code(s): K72.90 - HEPATIC FAILURE, UNSPECIFIED WITHOUT COMA (6) Type II diabetes mellitus, uncontrolled [facility]Levemir -HgA1c 5.5 Code(s): E11.65 - TYPE 2 DIABETES MELLITUS WITH HYPERGLYCEMIA (7) Pancytopenia Assessment/Plan: -Hematology consult -Monitor daily labs -Transfuse for Hg<7.0 to avoid fluid overload Code(s): D61.818 - OTHER PANCYTOPENIA
[2019-06-04] MEDS: LACTULOSE 20 GM/30 ML UDC (FOR ORAL USE ONLY) PO SCH ×2 (09:50→21:04)
[2019-06-04] MEDS: TAMSULOSIN HCL 0.4 MG CAP PO SCH (09:50)
[2019-06-04] MEDS: ASCORBIC ACID 500 MG TABLET (FP) PO SCH (09:50)
[2019-06-04] MEDS: FERROUS SO4 325 MG TABLET (FP) PO SCH (09:50)
[2019-06-04] MEDS: CALCIUM (OYSTER SHELL) 500 MG TABLET (FP) PO SCH (09:50)
[2019-06-04] MEDS: SPIRONOLACTONE 25 MG TABLET (FP) PO SCH (09:50)
[2019-06-04] MEDS: METOPROLOL TARTRATE 50 MG TABLET (FP) PO SCH ×2 (09:50→21:04)
[2019-06-04] MEDS: POLYETHYLENE GLYCOL 3350 119 GM BTL PO SCH ×2 (09:51→21:04)
[2019-06-04] MEDS: AMMONIUM LACTATE 12% LOTION 225 GM BOTTLE TP SCH ×2 (09:54→21:04)
--- NOTE | 2019-06-04 11:44 | PN ---
Progress Note (short form) - Note Progress Note: FUV b/l feet. +hypertrophic lesions sub met 1 b/l hypertrophic lesions Continue ammonium lactate. Foot care q8 weeks. Will follow.
--- NOTE | 2019-06-04 12:41 | PN ---
Progress Note (short form) - Note Progress Note: Renal follow up for SOPHIE/CKD Seen and examined at the bedside awake and alert no acute complaints urine output ~1250 yesterday weights unchanged still has sob when laying down Vital Signs Temperature 98 F 06/04/19 09:54 Pulse Rate 102 H 06/04/19 09:54 Respiratory Rate 20 06/04/19 09:54 Blood Pressure 124/54 L 06/04/19 09:54 O2 Sat by Pulse Oximetry (%) 100 06/03/19 21:00 Intake & Output 06/01/19 06/02/19 06/03/19 06/04/19 23:59 23:59 23:59 23:59 Intake Total 1080 1370 370 Output Total 825 1275 Balance 255 95 370 Weight 133.713 kg 133.583 kg 133.81 kg NAD awake and alert neck supple RRR CTA + abd ascities + LE edema CBC, BMP 06/04/19 06:15 06/04/19 06:15 Current Medications Ascorbic Acid (Vitamin C -) 500 mg PO DAILY [facility] Last Admin: 06/04/19 09:50 Dose: 500 mg Calcium Carbonate (Os-Gerhard 500mg -) 500 mg PO DAILY [facility] Last Admin: 06/04/19 09:50 Dose: 500 mg Ferrous Sulfate (Feosol -) 325 mg PO DAILY [facility] Last Admin: 06/04/19 09:50 Dose: 325 mg Furosemide (Lasix Injection -) 60 mg IVPUSH BID@0600,1400 [facility] Insulin Aspart (Novolog Vial Sliding Scale -) 1 vial SQ ACHS [facility]; Protocol Last Admin: 06/04/19 06:30 Dose: 2 units Insulin Detemir (Levemir Vial) 25 units SQ AM [facility] Last Admin: 06/04/19 06:30 Dose: 25 units Lactic Acid (Lac-Hydrin 12) 1 applic TP BID [facility] Last Admin: 06/04/19 09:54 Dose: 1 applic Lactulose (Cephulac (Oral Use)) 10 gm PO BID [facility] Last Admin: 06/04/19 09:50 Dose: 10 gm Metolazone (Zaroxolyn -) 5 mg PO DAILY@1330 [facility] Metoprolol Tartrate (Lopressor -) 50 mg PO BID [facility] Last Admin: 06/04/19 09:50 Dose: 50 mg Polyethylene Glycol (Miralax (For Daily Use) -) 17 gm PO BID [facility] Last Admin: 06/04/19 09:51 Dose: Not Given Spironolactone (Aldactone -) 25 mg PO DAILY [facility] Last Admin: 06/04/19 09:50 Dose: 25 mg Tamsulosin HCl (Flomax -) 0.4 mg PO DAILY@0830 [facility] Last Admin: 06/04/19 09:50 Dose: 0.4 mg 74 year old gentleman with history of Alcoholic cirrhosis, hypertension, CHF presented with shortness of breath and increased abdominal girth and admitted for worsening ascities. 1. CKD vs. SOPHIE from fluid shifts 2. Alcoholic cirrhosis with ascities 3. Anemia 4. Leukopenia/thrombocytopenia 5. CHF 6. Hypertension 7. Mild hyperkalemia Renal function stable Weights w/o improvement thus far Increase Lasix to 60mg IV BID and metolazone 5mg Daily Continue Aldactone Trend daily weights, electrolytes and renal function Ang Sanchez DO
[2019-06-04] MEDS: METOLAZONE 2.5 MG TABLET (FP) PO SCH (12:54)
--- NOTE | 2019-06-04 13:17 | PN ---
Progress Note, Physician History of Present Illness: pulmonary alert,comfortable,sob improving,-cp - Current Medication List Current Medications: Active Medications Ascorbic Acid (Vitamin C -) 500 mg PO DAILY [facility] Last Admin: 06/04/19 09:50 Dose: 500 mg Calcium Carbonate (Os-Gerhard 500mg -) 500 mg PO DAILY [facility] Last Admin: 06/04/19 09:50 Dose: 500 mg Ferrous Sulfate (Feosol -) 325 mg PO DAILY [facility] Last Admin: 06/04/19 09:50 Dose: 325 mg Furosemide (Lasix Injection -) 60 mg IVPUSH BID@0600,1400 [facility] Insulin Aspart (Novolog Vial Sliding Scale -) 1 vial SQ ACHS [facility]; Protocol Last Admin: 06/04/19 12:55 Dose: 6 units Insulin Detemir (Levemir Vial) 25 units SQ AM [facility] Last Admin: 06/04/19 06:30 Dose: 25 units Lactic Acid (Lac-Hydrin 12) 1 applic TP BID [facility] Last Admin: 06/04/19 09:54 Dose: 1 applic Lactulose (Cephulac (Oral Use)) 10 gm PO BID [facility] Last Admin: 06/04/19 09:50 Dose: 10 gm Metolazone (Zaroxolyn -) 5 mg PO DAILY@1330 [facility] Last Admin: 06/04/19 12:54 Dose: 5 mg Metoprolol Tartrate (Lopressor -) 50 mg PO BID [facility] Last Admin: 06/04/19 09:50 Dose: 50 mg Polyethylene Glycol (Miralax (For Daily Use) -) 17 gm PO BID [facility] Last Admin: 06/04/19 09:51 Dose: Not Given Spironolactone (Aldactone -) 25 mg PO DAILY [facility] Last Admin: 06/04/19 09:50 Dose: 25 mg Tamsulosin HCl (Flomax -) 0.4 mg PO DAILY@0830 [facility] Last Admin: 06/04/19 09:50 Dose: 0.4 mg - Objective Vital Signs: Vital Signs Temperature 98 F 06/04/19 09:54 Pulse Rate 102 H 06/04/19 09:54 Respiratory Rate 20 06/04/19 09:54 Blood Pressure 124/54 L 06/04/19 09:54 O2 Sat by Pulse Oximetry (%) 100 06/03/19 21:00 Constitutional: Yes: Well Nourished, Calm Eyes: Yes: WNL HENT: Yes: WNL Neck: Yes: WNL Cardiovascular: Yes: Regular Rate and Rhythm, S1, S2 Respiratory: Yes: Diminished Gastrointestinal: Yes: Normal Bowel Sounds, Soft Extremities: Yes: WNL Edema: Yes Labs: CBC, BMP 06/04/19 06:15 06/04/19 06:15 INR, PTT INR 1.30 (0.83-1.09) H 05/27/19 11:05 Problem List - Problems (1) SOPHIE (acute kidney injury) Code(s): N17.9 - ACUTE KIDNEY FAILURE, UNSPECIFIED (2) CHF (congestive heart failure) Code(s): I50.9 - HEART FAILURE, UNSPECIFIED Qualifiers: Heart failure type: unspecified Heart failure chronicity: acute on chronic Qualified Code(s): I50.9 - Heart failure, unspecified (3) Pancytopenia Code(s): D61.818 - OTHER PANCYTOPENIA (4) Acute renal failure (ARF) Code(s): N17.9 - ACUTE KIDNEY FAILURE, UNSPECIFIED (5) Altered mental status Code(s): R41.82 - ALTERED MENTAL STATUS, UNSPECIFIED Qualifiers: Altered mental status type: disorientation Qualified Code(s): R41.0 - Disorientation, unspecified (6) Anemia Code(s): D64.9 - ANEMIA, UNSPECIFIED (7) COPD (chronic obstructive pulmonary disease) Code(s): J44.9 - CHRONIC OBSTRUCTIVE PULMONARY DISEASE, UNSPECIFIED (8) Chronic systolic congestive heart failure Code(s): I50.22 - CHRONIC SYSTOLIC (CONGESTIVE) HEART FAILURE (9) Cirrhosis of liver Code(s): K74.60 - UNSPECIFIED CIRRHOSIS OF LIVER (10) Esophageal varices Code(s): I85.00 - ESOPHAGEAL VARICES WITHOUT BLEEDING (11) Hepatic encephalopathy Code(s): K72.90 - HEPATIC FAILURE, UNSPECIFIED WITHOUT COMA (12) Hypoxia Code(s): R09.02 - HYPOXEMIA (13) Acute on chronic respiratory failure with hypoxia and hypercapnia Code(s): J96.21 - ACUTE AND CHRONIC RESPIRATORY FAILURE WITH HYPOXIA; J96.22 - ACUTE AND CHRONIC RESPIRATORY FAILURE WITH HYPERCAPNIA Assessment/Plan CONSULTATION DICTATED 05/08/19 IMP DYSPNEA IMPROVING CHF IMPROVING ACUTE ON CHRONIC HYPOXEMIC/HYPERCAPNEIC RESPIRATORY FAILURE IMPROVING VOLUME OVERLOAD IMPROVING ASCITES COPD O2 DEPENDENT PLEURAL EFFUSION HEPATIC ENCEPHALOPATHY DM CIRRHOSIS WITH ESOPHAGEAL VARICES S/P BANDING PANCYTOPENIA SLOWLY IMPROVING SOPHIE H/O ETOH PLAN DIURETICS O2 DAILY WT MONITOR LYTES,RENAL FUNCTION MONITOR H+H DR COLLAZO Problem List - Problems (1) SOPHIE (acute kidney injury) Code(s): N17.9 - ACUTE KIDNEY FAILURE, UNSPECIFIED (2) CHF (congestive heart failure) Code(s): I50.9 - HEART FAILURE, UNSPECIFIED Qualifiers: Heart failure type: unspecified Heart failure chronicity: acute on chronic Qualified Code(s): I50.9 - Heart failure, unspecified (3) Pancytopenia Code(s): D61.818 - OTHER PANCYTOPENIA (4) Acute renal failure (ARF) Code(s): N17.9 - ACUTE KIDNEY FAILURE, UNSPECIFIED (5) Altered mental status Code(s): R41.82 - ALTERED MENTAL STATUS, UNSPECIFIED Qualifiers: Altered mental status type: disorientation Qualified Code(s): R41.0 - Disorientation, unspecified (6) Anemia Code(s): D64.9 - ANEMIA, UNSPECIFIED (7) COPD (chronic obstructive pulmonary disease) Code(s): J44.9 - CHRONIC OBSTRUCTIVE PULMONARY DISEASE, UNSPECIFIED (8) Chronic systolic congestive heart failure Code(s): I50.22 - CHRONIC SYSTOLIC (CONGESTIVE) HEART FAILURE (9) Cirrhosis of liver Code(s): K74.60 - UNSPECIFIED CIRRHOSIS OF LIVER (10) Esophageal varices Code(s): I85.00 - ESOPHAGEAL VARICES WITHOUT BLEEDING (11) Hepatic encephalopathy Code(s): K72.90 - HEPATIC FAILURE, UNSPECIFIED WITHOUT COMA (12) Hypoxia Code(s): R09.02 - HYPOXEMIA (13) Acute on chronic respiratory failure with hypoxia and hypercapnia Code(s): J96.21 - ACUTE AND CHRONIC RESPIRATORY FAILURE WITH HYPOXIA; J96.22 - ACUTE AND CHRONIC RESPIRATORY FAILURE WITH HYPERCAPNIA
--- NOTE | 2019-06-04 13:45 | PN ---
Physical Exam: SUBJECTIVE: Patient seen and examined at bedside. Says he feels unwell but cannot elaborate. Per nurse, still intermittently refusing therapy. OBJECTIVE: Vital Signs Period Temp Pulse Resp BP Sys/Block Pulse Ox Last 24 Hr 97.9 F-98.3 F 70-104 20-20 121-137/54-72 100 GENERAL: The patient is awake, alert, and fully oriented, in no acute distress. HEAD: Normal with no signs of trauma. EYES: extraocular movements intact, sclera anicteric, conjunctiva clear. No ptosis. ENT:nares patent, oropharynx clear without exudates, moist mucous membranes. NECK: Trachea midline, full range of motion, supple. positive JVD LUNGS: Decreased breath sounds at bases HEART: Regular rate and rhythm, S1, S2 without murmur, rub or gallop. ABDOMEN: Soft, nontender, nondistended, normoactive bowel sounds, no guarding, no rebound, no hepatosplenomegaly, no masses. EXTREMITIES: 2+ edema. Laboratory Results - last 24 hr 06/03/19 06/03/19 06/04/19 17:03 20:53 06:15 WBC 3.9 L RBC 2.81 L Hgb 9.7 L Hct 28.7 L MCV 102.1 H MCH 34.6 H MCHC 33.9 RDW 15.4 Plt Count 96 L MPV 9.8 Absolute Neuts (auto) 2.4 Neutrophils % 62.9 Lymphocytes % 17.6 Monocytes % 12.1 H Eosinophils % 5.1 H Basophils % 2.3 H Nucleated RBC % 0 Sodium Potassium Chloride Carbon Dioxide Anion Gap BUN Creatinine Est GFR (CKD-EPI)AfAm Est GFR (CKD-EPI)NonAf POC Glucometer 284 338 Random Glucose Calcium Phosphorus Magnesium Total Bilirubin AST ALT Alkaline Phosphatase Ammonia Total Protein Albumin 06/04/19 06/04/19 06/04/19 06:15 06:21 10:43 WBC RBC Hgb Hct MCV MCH MCHC RDW Plt Count MPV Absolute Neuts (auto) Neutrophils % Lymphocytes % Monocytes % Eosinophils % Basophils % Nucleated RBC % Sodium 139 Potassium 4.5 Chloride 104 Carbon Dioxide 31 Anion Gap 5 L BUN 54.5 H Creatinine 1.4 H Est GFR (CKD-EPI)AfAm 57.36 Est GFR (CKD-EPI)NonAf 49.49 POC Glucometer 243 Random Glucose 273 H Calcium 8.7 Phosphorus 3.6 Magnesium 2.4 Total Bilirubin 2.8 H AST 34 ALT 41 Alkaline Phosphatase 249 H Ammonia 114.80 H Total Protein 6.2 L Albumin 3.2 L 06/04/19 12:53 WBC RBC Hgb Hct MCV MCH MCHC RDW Plt Count MPV Absolute Neuts (auto) Neutrophils % Lymphocytes % Monocytes % Eosinophils % Basophils % Nucleated RBC % Sodium Potassium Chloride Carbon Dioxide Anion Gap BUN Creatinine Est GFR (CKD-EPI)AfAm Est GFR (CKD-EPI)NonAf POC Glucometer 322 Random Glucose Calcium Phosphorus Magnesium Total Bilirubin AST ALT Alkaline Phosphatase Ammonia Total Protein Albumin Active Medications Generic Name Dose Route Start Last Admin Trade Name Freq PRN Reason Stop Dose Admin Ascorbic Acid 500 mg 05/28/19 10:00 06/04/19 09:50 Vitamin C - PO 500 mg DAILY [facility] Administration Calcium Carbonate 500 mg 05/28/19 10:00 06/04/19 09:50 Os-Gerhard 500mg - PO 500 mg DAILY [facility] Administration Ferrous Sulfate 325 mg 05/28/19 10:00 06/04/19 09:50 Feosol - PO 325 mg DAILY [facility] Administration Furosemide 60 mg 06/04/19 12:40 Lasix Injection - IVPUSH BID@0600,1400 [facility] Insulin Aspart 1 vial 05/27/19 17:31 06/04/19 12:55 Novolog Vial Sliding Scale - SQ 6 units ACHS [facility] Administration Protocol Insulin Detemir 25 units 05/28/19 07:00 06/04/19 06:30 Levemir Vial SQ 25 units AM [facility] Administration Lactic Acid 1 applic 06/02/19 16:52 06/04/19 09:54 Lac-Hydrin 12 TP 1 applic BID [facility] Administration Lactulose 10 gm 05/27/19 22:00 06/04/19 09:50 Cephulac (Oral Use) PO 10 gm BID [facility] Administration Metolazone 5 mg 06/04/19 11:52 06/04/19 12:54 Zaroxolyn - PO 5 mg DAILY@1330 [facility] Administration Metoprolol Tartrate 50 mg 05/30/19 22:00 06/04/19 09:50 Lopressor - PO 50 mg BID [facility] Administration Polyethylene Glycol 17 gm 05/28/19 22:00 06/04/19 09:51 Miralax (For Daily Use) - PO Not Given BID [facility] Spironolactone 25 mg 06/04/19 10:00 06/04/19 09:50 Aldactone - PO 25 mg DAILY [facility] Administration Tamsulosin HCl 0.4 mg 05/28/19 08:30 06/04/19 09:50 Flomax - PO 0.4 mg DAILY@0830 [facility] Administration ASSESSMENT/PLAN: 74 yo m w/ PMH HTN, CHF, COPD, Cirrhosis (2/2 etoh abuse), with varices s/p variceal banding, hepatic encephalopathy who is from [facility] for SOB. In the ED , he was found to be pancytopenic. Hematology was consulted for assistance in the evaluation of this pancytopenia. Pancytopenia likley 2/2 cirrhosis and hypersplenism -Ammonia elevated. Pt refusing Lactulose -elevated bili, alk phos, -B12, folate, TSH unremarkable. - Iron studies, SPEP, UPEP -flow cytometry/FISH/Cytogenetics pending -Improving slowly -AFP neg, PEP low, Urine protein 13.5, Urine Protein/Bar[employer] Tool Shar[employer]er 0.2 -Immunology neg for M-spike -Abd US: 3.4 x 2.6 x 2.9 cm lobulated left hepatic lobe mass suspicious for HCC. Also cholelithiasis, ascites, R pleural effusio -Abd MRI pending Visit type - Emergency Visit Emergency Visit: No - New Patient This patient is new to me today: No - Critical Care Critical Care patient: No ATTENDING PHYSICIAN STATEMENT I saw and evaluated the patient. I reviewed the resident's note and discussed the case with the resident. I agree with the resident's findings and plan as documented. SUBJECTIVE: OBJECTIVE: ASSESSMENT AND PLAN:
--- NOTE | 2019-06-04 14:21 | CONSULT ---
Consult Consult Specialty:: PM&R Dr Coleman for Dr Yousif - History of Present Illness Chief Complaint: wants to sit edge of bed History of Present Illness: This is a 74 year old man with a medical history of CHF, HTN, COPD, esophageal varices, liver cirrhosis, hepatic encephalopathy, IDDM, who presented to the ED 05/27/19 with 1 month worsening SOB. He was admitted to Telemetry for CHF exacerbation with elevated troponin, for which Cardiology was consulted. Pulm was consulted for COPD, with CXR showing B pleural effusions. Renal was consulted for SOPHIE, and GI for hepatic encephalopathy. He has not been seen by PT. Physiatry is being consulted for further recommendations. - Past Medical History Cardio/Vascular: Yes: CHF, HTN. No: AFIB, CAD Pulmonary: Yes: COPD Gastrointestinal: Yes: Esophageal Varices, Other (Hepatic encephalopathy) Hepatobiliary: Yes: Cirrhosis (Alcohol induced) Renal/: Yes: BPH Infectious Disease: Yes: Other (pneumonia) Endocrine: Yes: Diabetes Mellitus - Past Surgical History Past Surgical History: Yes: Hernia Repair, Upper Endoscopy - Alcohol/Substance Use Hx Alcohol Use: No History of Substance Use: reports: None, Cocaine (ex intranasal cocaine use) - Smoking History Smoking history: Former smoker Have you smoked in the past 12 months: No Aproximately how many cigarettes per day: 10 If you are a former smoker, when did you quit?: smokes daily - Social History Usual Living Arrangement: Alone ADL: Independent Occupation: son lives upstairs History of Recent Travel: No Home Medications - Allergies Allergies/Adverse Reactions: Allergies Allergy/AdvReac Type Severity Reaction Status Date / Time No Known Allergies Allergy Verified 05/27/19 10:37 - Home Medications Home Medications: Ambulatory Orders Omeprazole 20 mg PO DAILY 11/05/18 Tamsulosin HCl [Flomax] 0.4 mg PO DAILY 11/05/18 Rifaximin [Xifaxan -] 550 mg PO BID #60 tablet 11/08/18 Lactulose 10 gm PO BID 03/28/19 Spironolactone 25 mg PO DAILY 03/28/19 Insulin Sliding Scale [Novolog Vial Sliding Scale -] 1 vial SQ ACHS units 04/05 Nadolol [Corgard -] 40 mg PO DAILY tablet 04/05/19 Polyethylene Glycol 3350 [Miralax 119 gm Btl -] 34 gm PO BID bottle 04/05/19 Acetaminophen [Tylenol] 650 mg PO TID 05/27/19 Ascorbate Calcium [Vitamin C] 500 mg PO DAILY 05/27/19 Calcium (Oyster Shell) [Os-Gerhard 500Mg -] 500 mg PO DAILY 05/27/19 Dextran 70/Hypromellose/Pf [Artificial Tears Drops] 1 each OP DAILY 05/27/19 Ferrous Sulfate 325 mg PO DAILY 05/27/19 Insulin (Levemir) [Levemir Vial] 25 unit SQ AM 05/27/19 Review of Systems Findings/Remarks: Denies fevers, chills, changes in vision/ hearing/ mood, vomiting, diarrhea, dysuria, numbness/ paresthesias, muscle/ joint pain Reports "I don't know" to CP, SOB, abdominal pain Notes nausea, constipation Physical Exam Vital Signs: Vital Signs Temperature 98 F 06/04/19 09:54 Pulse Rate 102 H 06/04/19 09:54 Respiratory Rate 20 06/04/19 09:54 Blood Pressure 124/54 L 06/04/19 09:54 O2 Sat by Pulse Oximetry (%) 100 06/03/19 21:00 Musculoskeletal: Yes: Other (General: tearful elderly M sitting in bed , "I want to sit at the edge of the bed" N/M: declines B delt ROM, 4+/5 RUE and 4/5 LUE, moves BLE with gravity but not antigravity, poorly participating in PE 2/2 wanting to sit EOB Extremities: 1+ BLE pitting edema, no B calf tenderness) Labs: CBC, BMP 06/04/19 06:15 06/04/19 06:15 Assessment/Plan Impression: 1) Deficits mobility/ ADLs 2) Deconditioning 3) Gait abnormality 4) CHF exacerbation and elevated troponin, with hx HTN 5) COPD 6) Esophageal varices 7) Liver cirrhosis and hepatic encephalopathy 8) SOPHIE 9) IDDM 10) Obesity 11) Active smoker? 12) No documented flu shot, up to date pneumovax 13) Pancytopenia Recommendations: 1) PT for stretching strengthening ROM and functional mobility 2) Falls, safety precautions 3) Cardiopulmonary precautions 4) Diabetic precautions 5) DVT ppx: off AC 2/2 thrombocytopenia 6) Skin protection: float heels, q2 hour turning 7) Bowel regimen prn: on Lactulose BID for hepatic encephalopathy 8) Smoking cessation information at discharge 9) Nutrition consult for obesity 10) Monitor CBC given anemia 11) Monitor BMP given renal function 12) Continue plan per primary team 13) Discharge planning: to [facility]/ SNF once medically stable Thank you for this referral.
--- NOTE | 2019-06-04 16:39 | PN ---
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 + orthopnea. Noted to havepancytopenia, ascites, coagulopathy, and elevated troponin. Echo glob HK ef 35-40 mild RVHK mod mr mod-sev TR Has atrial fibrillation Improving on Lasix 40mg IV daily and spironolactone His is not on AC or antiplatlets due to coagulopathy and liver disease - Current Medication List Current Medications: Active Medications Ascorbic Acid (Vitamin C -) 500 mg PO DAILY [facility] Last Admin: 06/04/19 09:50 Dose: 500 mg Calcium Carbonate (Os-Gerhard 500mg -) 500 mg PO DAILY [facility] Last Admin: 06/04/19 09:50 Dose: 500 mg Ferrous Sulfate (Feosol -) 325 mg PO DAILY [facility] Last Admin: 06/04/19 09:50 Dose: 325 mg Furosemide (Lasix Injection -) 60 mg IVPUSH BID@0600,1400 [facility] Last Admin: 06/04/19 14:17 Dose: 60 mg Insulin Aspart (Novolog Vial Sliding Scale -) 1 vial SQ ACHS [facility]; Protocol Last Admin: 06/04/19 12:55 Dose: 6 units Insulin Detemir (Levemir Vial) 25 units SQ AM [facility] Last Admin: 06/04/19 06:30 Dose: 25 units Lactic Acid (Lac-Hydrin 12) 1 applic TP BID [facility] Last Admin: 06/04/19 09:54 Dose: 1 applic Lactulose (Cephulac (Oral Use)) 10 gm PO BID [facility] Last Admin: 06/04/19 09:50 Dose: 10 gm Metolazone (Zaroxolyn -) 5 mg PO DAILY@1330 [facility] Last Admin: 06/04/19 12:54 Dose: 5 mg Metoprolol Tartrate (Lopressor -) 50 mg PO BID [facility] Last Admin: 06/04/19 09:50 Dose: 50 mg Polyethylene Glycol (Miralax (For Daily Use) -) 17 gm PO BID [facility] Last Admin: 06/04/19 09:51 Dose: Not Given Spironolactone (Aldactone -) 25 mg PO DAILY [facility] Last Admin: 06/04/19 09:50 Dose: 25 mg Tamsulosin HCl (Flomax -) 0.4 mg PO DAILY@0830 [facility] Last Admin: 06/04/19 09:50 Dose: 0.4 mg - Objective Vital Signs: Vital Signs Temperature 97.5 F L 06/04/19 14:21 Pulse Rate 95 H 06/04/19 14:21 Respiratory Rate 18 06/04/19 14:21 Blood Pressure 117/52 L 06/04/19 14:21 O2 Sat by Pulse Oximetry (%) 100 06/04/19 09:00 Constitutional: Yes: No Distress HENT: Yes: WNL Neck: Yes: WNL, Lymphadenopathy Cardiovascular: Yes: Pulse Irregular (S1S2) Respiratory: Yes: Diminished (Basilar) Gastrointestinal: Yes: Soft Edema: LLE: 1+, RLE: 1+ Wound/Incision: Yes: Bleeding Neurological: Yes: Alert, Oriented Labs: CBC, BMP 06/04/19 06:15 06/04/19 06:15 INR, PTT INR 1.30 (0.83-1.09) H 05/27/19 11:05 Assessment/Plan 74 y/o M with a history of NIDDM, 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 + orthopnea. Noted to havepancytopenia, ascites, coagulopathy, and elevated troponin. Echo glob HK ef 35-40 mild RVHK mod mr mod-sev TR Has atrial fibrillation His is not on AC or antiplatlets due to coagulopathy and liver disease CHF Would increase Lasix to 60mg IV BID to for more aggressive diuresis Metolazone (Zaroxolyn -) 5 mg PO DAILY Continue aldactone 25 mg PO daily Follow I's/O's/Wt's/Lytes Improving slowly AFIB Rate controling with lopressor 50 mg PO BID No AC or antiplatlets due to coagulopathy and liver disease Active Medications Ascorbic Acid (Vitamin C -) 500 mg PO DAILY [facility] Last Admin: 06/04/19 09:50 Dose: 500 mg Calcium Carbonate (Os-Gerhard 500mg -) 500 mg PO DAILY [facility] Last Admin: 06/04/19 09:50 Dose: 500 mg Ferrous Sulfate (Feosol -) 325 mg PO DAILY [facility] Last Admin: 06/04/19 09:50 Dose: 325 mg Furosemide (Lasix Injection -) 60 mg IVPUSH BID@0600,1400 [facility] Last Admin: 06/04/19 14:17 Dose: 60 mg Insulin Aspart (Novolog Vial Sliding Scale -) 1 vial SQ ACHS [facility]; Protocol Last Admin: 06/04/19 12:55 Dose: 6 units Insulin Detemir (Levemir Vial) 25 units SQ AM [facility] Last Admin: 06/04/19 06:30 Dose: 25 units Lactic Acid (Lac-Hydrin 12) 1 applic TP BID [facility] Last Admin: 06/04/19 09:54 Dose: 1 applic Lactulose (Cephulac (Oral Use)) 10 gm PO BID [facility] Last Admin: 06/04/19 09:50 Dose: 10 gm Metolazone (Zaroxolyn -) 5 mg PO DAILY@1330 [facility] Last Admin: 06/04/19 12:54 Dose: 5 mg Metoprolol Tartrate (Lopressor -) 50 mg PO BID [facility] Last Admin: 06/04/19 09:50 Dose: 50 mg Polyethylene Glycol (Miralax (For Daily Use) -) 17 gm PO BID [facility] Last Admin: 06/04/19 09:51 Dose: Not Given Spironolactone (Aldactone -) 25 mg PO DAILY [facility] Last Admin: 06/04/19 09:50 Dose: 25 mg Tamsulosin HCl (Flomax -) 0.4 mg PO DAILY@0830 [facility] Last Admin: 06/04/19 09:50 Dose: 0.4 mg
--- NOTE | 2019-06-04 18:12 | PN ---
Teaching Attending Note Name of Resident: Adrián Del Castillo ATTENDING PHYSICIAN STATEMENT I saw and evaluated the patient. I reviewed the resident's note and discussed the case with the resident. I agree with the resident's findings and plan as documented. SUBJECTIVE: Patient seen and examined Lying in bed in NAD Last Vital Signs Temp Pulse Resp BP Pulse Ox 97.5 F L 104 H 18 141/72 100 06/04/19 18:00 06/04/19 18:00 06/04/19 18:00 06/04/19 18:00 06/04/19 09:00 HEENT: KATYA, EOM Intact Oropharynx: No thrush, No mucositis Cor:irregular rhythm Lungs:diminished breath sounds Abd: ascites Ext LE edema Skin: No rashes, Integument intact CBC, BMP 06/04/19 06:15 06/04/19 06:15 Current Medications Generic Name Dose Route Start Last Admin Trade Name Freq PRN Reason Stop Dose Admin Ascorbic Acid 500 mg 05/28/19 10:00 06/04/19 09:50 Vitamin C - PO 500 mg DAILY [facility] Administration Calcium Carbonate 500 mg 05/28/19 10:00 06/04/19 09:50 Os-Gerhard 500mg - PO 500 mg DAILY [facility] Administration Ferrous Sulfate 325 mg 05/28/19 10:00 06/04/19 09:50 Feosol - PO 325 mg DAILY [facility] Administration Furosemide 60 mg 06/04/19 12:40 06/04/19 14:17 Lasix Injection - IVPUSH 60 mg BID@0600,1400 [facility] Administration Insulin Aspart 1 vial 05/27/19 17:31 06/04/19 17:35 Novolog Vial Sliding Scale - SQ 4 units ACHS [facility] Administration Protocol Insulin Detemir 25 units 05/28/19 07:00 06/04/19 06:30 Levemir Vial SQ 25 units AM [facility] Administration Lactic Acid 1 applic 06/02/19 16:52 06/04/19 09:54 Lac-Hydrin 12 TP 1 applic BID [facility] Administration Lactulose 10 gm 05/27/19 22:00 06/04/19 09:50 Cephulac (Oral Use) PO 10 gm BID [facility] Administration Metolazone 5 mg 06/04/19 11:52 06/04/19 12:54 Zaroxolyn - PO 5 mg DAILY@1330 [facility] Administration Metoprolol Tartrate 50 mg 05/30/19 22:00 06/04/19 09:50 Lopressor - PO 50 mg BID [facility] Administration Polyethylene Glycol 17 gm 05/28/19 22:00 06/04/19 09:51 Miralax (For Daily Use) - PO Not Given BID [facility] Spironolactone 25 mg 06/04/19 10:00 06/04/19 09:50 Aldactone - PO 25 mg DAILY [facility] Administration Tamsulosin HCl 0.4 mg 05/28/19 08:30 06/04/19 09:50 Flomax - PO 0.4 mg DAILY@0830 [facility] Administration OBJECTIVE: Impression: Pancytopenia secondary to underlying cirrhosis with portal hypertension and hypersplenism Liver mass Continue diuresis and lactulose in hopes of clinical improvemet to facilitate tissue diagnosis. ?? addition of albumin to facilitated diuresis. ASSESSMENT AND PLAN:
[2019-06-05] MEDS: ALBUTEROL SO4 2.5/IPRATROPIUM 0.5 INH SOL 3 ML VIAL.NEB. NEB SCH ×6 (01:17→20:10)
[2019-06-05] MEDS: FUROSEMIDE 40 MG/4 ML INJECTABLE VIAL IVPUSH SCH ×2 (06:57→15:34)
[2019-06-05] MEDS: INSULIN (LEVEMIR) 100 UNITS/ML UNITS SQ SCH (07:03)
[2019-06-05] MEDS: INSULIN SLIDING SCALE (NOVOLOG) 1 VIAL SQ SCH ×4 (07:03→22:00)
[2019-06-05 07:36] LABS: BASO % 0.7 % (0-2.0); EOS % 4.8 % (0-4.5); HEMATOCRIT 30.1 % (35.4-49); LYMPH % 17.3 % (8-40); MCHC 33.2 g/dl (32.0-35.9); MEAN CELL VOLUME 102.5 fl (80-96); MEAN PLT VOLUME 9.6 fl (7.5-11.1); MONO % 11.8 % (3.8-10.2); NEUT % 65.4 % (42.8-82.8); PLATELET COUNT 96 K/MM3 (134-434); RBC 2.94 M/mm3 (4.00-5.60); RDW 15.7 % (11.9-15.9)
[2019-06-05 08:13] LABS: ALBUMIN 3.1 g/dl (3.4-5.0); BILIRUBIN,TOTAL 3.1 mg/dL (0.2-1); BLOOD UREA NITROGEN 58.5 mg/dL (7-18); CALCIUM 8.9 mg/dL (8.5-10.1); CREATININE 1.6 mg/dL (0.55-1.3); MAGNESIUM 2.4 mg/dL (1.8-2.4); PHOSPHOROUS 3.6 mg/dL (2.5-4.9); POTASSIUM 4.2 mmol/L (3.5-5.1); TOT PROT 6.2 g/dl (6.4-8.2)
[2019-06-05] MEDS ORDERED: PT OWN MED DRAWER 7, Y5N ONE (08:56)
[2019-06-05] MEDS: SPIRONOLACTONE 25 MG TABLET (FP) PO SCH (09:34)
[2019-06-05] MEDS: FERROUS SO4 325 MG TABLET (FP) PO SCH (09:34)
[2019-06-05] MEDS: TAMSULOSIN HCL 0.4 MG CAP PO SCH (09:34)
[2019-06-05] MEDS: ASCORBIC ACID 500 MG TABLET (FP) PO SCH (09:34)
[2019-06-05] MEDS: METOPROLOL TARTRATE 50 MG TABLET (FP) PO SCH ×2 (09:34→21:58)
[2019-06-05] MEDS: LACTULOSE 20 GM/30 ML UDC (FOR ORAL USE ONLY) PO SCH ×2 (09:34→21:58)
[2019-06-05] MEDS: CALCIUM (OYSTER SHELL) 500 MG TABLET (FP) PO SCH (09:34)
[2019-06-05] MEDS: POLYETHYLENE GLYCOL 3350 119 GM BTL PO SCH ×2 (09:35→21:59)
[2019-06-05] MEDS: AMMONIUM LACTATE 12% LOTION 225 GM BOTTLE TP SCH ×2 (09:37→21:59)
--- NOTE | 2019-06-05 11:52 | PN ---
Progress Note (short form) - Note Progress Note: PULMONARY States breathing is improving. Occasional cough and wheezing. Vital Signs Period Temp Pulse Resp BP Sys/Block Pulse Ox Last 24 Hr 97.4 F-97.8 F 88-104 18-22 113-141/52-72 98 Intake & Output 06/02/19 06/03/19 06/04/19 06/05/19 23:59 23:59 23:59 23:59 Intake Total 1080 1370 1230 390 Output Total 825 1275 1030 320 Balance 255 95 200 70 Weight 133.713 kg 133.583 kg 133.81 kg 133.084 kg Gen: NAD at rest Heart: RRR Lung: decreased breath sounds at the bases Abd: softly distended, nontender Ext: + edema CBC, BMP 06/05/19 07:20 06/05/19 07:20 Active Medications Albuterol/Ipratropium (Duoneb -) 1 amp NEB RQ4H [facility] Last Admin: 06/05/19 07:25 Dose: 1 amp Ascorbic Acid (Vitamin C -) 500 mg PO DAILY [facility] Last Admin: 06/05/19 09:34 Dose: 500 mg Calcium Carbonate (Os-Gerhard 500mg -) 500 mg PO DAILY [facility] Last Admin: 06/05/19 09:34 Dose: 500 mg Ferrous Sulfate (Feosol -) 325 mg PO DAILY [facility] Last Admin: 06/05/19 09:34 Dose: 325 mg Furosemide (Lasix Injection -) 60 mg IVPUSH BID@0600,1400 [facility] Last Admin: 06/05/19 06:57 Dose: 60 mg Insulin Aspart (Novolog Vial Sliding Scale -) 1 vial SQ ACHS [facility]; Protocol Last Admin: 06/05/19 07:03 Dose: 2 units Insulin Detemir (Levemir Vial) 25 units SQ AM [facility] Last Admin: 06/05/19 07:03 Dose: 25 units Lactic Acid (Lac-Hydrin 12) 1 applic TP BID [facility] Last Admin: 06/05/19 09:37 Dose: 1 applic Lactulose (Cephulac (Oral Use)) 10 gm PO BID [facility] Last Admin: 06/05/19 09:34 Dose: 10 gm Metolazone (Zaroxolyn -) 5 mg PO DAILY@1330 [facility] Last Admin: 06/04/19 12:54 Dose: 5 mg Metoprolol Tartrate (Lopressor -) 50 mg PO BID [facility] Last Admin: 06/05/19 09:34 Dose: 50 mg Polyethylene Glycol (Miralax (For Daily Use) -) 17 gm PO BID [facility] Last Admin: 06/05/19 09:35 Dose: Not Given Spironolactone (Aldactone -) 25 mg PO DAILY [facility] Last Admin: 06/05/19 09:34 Dose: 25 mg Tamsulosin HCl (Flomax -) 0.4 mg PO DAILY@0830 [facility] Last Admin: 06/05/19 09:34 Dose: 0.4 mg A/P Acute on Chronic Systolic Heart Failure Volume Overload Pleural Effusion Atrial Fibrillation Acute Kidney Injury Chronic Hypoxic Respiratory Failure COPD Liver Cirrhosis Ascites Pancytopenia DM - continue lasix, aldactone, zaroxolyn - monitor urine output, creatinine - daily weights - O2 to keep SpO2 >90% - inhaled bronchodilators - rate control - DVT prophylaxis
--- NOTE | 2019-06-05 13:24 | PN ---
Progress Note (short form) - Note Progress Note: Renal follow up for SOPHIE/CKD Seen and examined at the bedside awake and alert feels better was able to take a few steps yesterday making urine, output ~1030 yesterday Vital Signs Temperature 97.8 F 06/05/19 13:16 Pulse Rate 106 H 06/05/19 13:16 Respiratory Rate 18 06/05/19 13:16 Blood Pressure 122/56 L 06/05/19 13:16 O2 Sat by Pulse Oximetry (%) 97 06/05/19 09:00 Intake & Output 06/02/19 06/03/19 06/04/19 06/05/19 23:59 23:59 23:59 23:59 Intake Total 1080 1370 1230 760 Output Total 825 1275 1030 1070 Balance 255 95 200 -310 Weight 133.713 kg 133.583 kg 133.81 kg 133.084 kg NAD awake and alert neck supple RRR CTA + abd ascities + LE edema CBC, BMP 06/05/19 07:20 06/05/19 07:20 Current Medications Albuterol/Ipratropium (Duoneb -) 1 amp NEB RQ4H [facility] Last Admin: 06/05/19 11:30 Dose: 1 amp Ascorbic Acid (Vitamin C -) 500 mg PO DAILY [facility] Last Admin: 06/05/19 09:34 Dose: 500 mg Calcium Carbonate (Os-Gerhard 500mg -) 500 mg PO DAILY [facility] Last Admin: 06/05/19 09:34 Dose: 500 mg Ferrous Sulfate (Feosol -) 325 mg PO DAILY [facility] Last Admin: 06/05/19 09:34 Dose: 325 mg Furosemide (Lasix Injection -) 60 mg IVPUSH BID@0600,1400 [facility] Last Admin: 06/05/19 06:57 Dose: 60 mg Insulin Aspart (Novolog Vial Sliding Scale -) 1 vial SQ ACHS [facility]; Protocol Last Admin: 06/05/19 11:59 Dose: 4 units Insulin Detemir (Levemir Vial) 25 units SQ AM [facility] Last Admin: 06/05/19 07:03 Dose: 25 units Lactic Acid (Lac-Hydrin 12) 1 applic TP BID [facility] Last Admin: 06/05/19 09:37 Dose: 1 applic Lactulose (Cephulac (Oral Use)) 10 gm PO BID [facility] Last Admin: 06/05/19 09:34 Dose: 10 gm Metolazone (Zaroxolyn -) 5 mg PO DAILY@1330 [facility] Last Admin: 06/04/19 12:54 Dose: 5 mg Metoprolol Tartrate (Lopressor -) 50 mg PO BID [facility] Last Admin: 06/05/19 09:34 Dose: 50 mg Polyethylene Glycol (Miralax (For Daily Use) -) 17 gm PO BID [facility] Last Admin: 06/05/19 09:35 Dose: Not Given Spironolactone (Aldactone -) 25 mg PO DAILY [facility] Last Admin: 06/05/19 09:34 Dose: 25 mg Tamsulosin HCl (Flomax -) 0.4 mg PO DAILY@0830 [facility] Last Admin: 06/05/19 09:34 Dose: 0.4 mg 74 year old gentleman with history of Alcoholic cirrhosis, hypertension, CHF presented with shortness of breath and increased abdominal girth and admitted for worsening ascities. 1. CKD vs. SOPHIE from fluid shifts 2. Alcoholic cirrhosis with ascities 3. Anemia 4. Leukopenia/thrombocytopenia 5. CHF 6. Hypertension 7. Mild hyperkalemia Renal function stable About 0.8kg weight loss noted Continue Lasix 60mg IV BID and metolazone 5mg Daily Continue Aldactone Trend daily weights, electrolytes and renal function Ang Sanchez DO
[2019-06-05] MEDS: METOLAZONE 2.5 MG TABLET (FP) PO SCH (13:33)
--- NOTE | 2019-06-05 14:00 | PN ---
Progress Note, Physician Chief Complaint: patient seen and examined in bed feeling better shortness of breath better awaiting MRI - Current Medication List Current Medications: Active Medications Albuterol/Ipratropium (Duoneb -) 1 amp NEB RQ4H [facility] Last Admin: 06/05/19 11:30 Dose: 1 amp Ascorbic Acid (Vitamin C -) 500 mg PO DAILY [facility] Last Admin: 06/05/19 09:34 Dose: 500 mg Calcium Carbonate (Os-Gerhard 500mg -) 500 mg PO DAILY [facility] Last Admin: 06/05/19 09:34 Dose: 500 mg Ferrous Sulfate (Feosol -) 325 mg PO DAILY [facility] Last Admin: 06/05/19 09:34 Dose: 325 mg Furosemide (Lasix Injection -) 60 mg IVPUSH BID@0600,1400 [facility] Last Admin: 06/05/19 06:57 Dose: 60 mg Insulin Aspart (Novolog Vial Sliding Scale -) 1 vial SQ ACHS [facility]; Protocol Last Admin: 06/05/19 11:59 Dose: 4 units Insulin Detemir (Levemir Vial) 25 units SQ AM [facility] Last Admin: 06/05/19 07:03 Dose: 25 units Lactic Acid (Lac-Hydrin 12) 1 applic TP BID [facility] Last Admin: 06/05/19 09:37 Dose: 1 applic Lactulose (Cephulac (Oral Use)) 10 gm PO BID [facility] Last Admin: 06/05/19 09:34 Dose: 10 gm Metolazone (Zaroxolyn -) 5 mg PO DAILY@1330 [facility] Last Admin: 06/05/19 13:33 Dose: 5 mg Metoprolol Tartrate (Lopressor -) 50 mg PO BID [facility] Last Admin: 06/05/19 09:34 Dose: 50 mg Polyethylene Glycol (Miralax (For Daily Use) -) 17 gm PO BID [facility] Last Admin: 06/05/19 09:35 Dose: Not Given Spironolactone (Aldactone -) 25 mg PO DAILY [facility] Last Admin: 06/05/19 09:34 Dose: 25 mg Tamsulosin HCl (Flomax -) 0.4 mg PO DAILY@0830 [facility] Last Admin: 06/05/19 09:34 Dose: 0.4 mg - Objective Vital Signs: Vital Signs Temperature 97.8 F 06/05/19 13:16 Pulse Rate 106 H 06/05/19 13:16 Respiratory Rate 18 11/07/19 13:16 Blood Pressure 122/56 L 06/05/19 13:16 O2 Sat by Pulse Oximetry (%) 97 06/05/19 09:00 Constitutional: Yes: Calm Eyes: Yes: Sclera Icterus Cardiovascular: Yes: Regular Rate and Rhythm, S1, S2 Respiratory: Yes: Diminished Gastrointestinal: Yes: Soft, Ascites Edema: Yes Neurological: Yes: Alert, Oriented Labs: CBC, BMP 06/05/19 07:20 06/05/19 07:20 INR, PTT INR 1.30 (0.83-1.09) H 05/27/19 11:05 Problem List - Problems (1) CHF (congestive heart failure) Assessment/Plan: iv lasix dose increase to 60mg bid albumin completed echo left ventricle systolic function is severly reduced chest ct done Code(s): I50.9 - HEART FAILURE, UNSPECIFIED Qualifiers: Heart failure type: unspecified Heart failure chronicity: acute on chronic Qualified Code(s): I50.9 - Heart failure, unspecified (2) Ascites Assessment/Plan: continue with lasix and now on metalozone and aldactone Code(s): R18.8 - OTHER ASCITES (3) Cirrhosis of liver Assessment/Plan: aldactone ,nadolol,rifaximin, ultrasound shows liver massin left lobe awiaitng MRI of liver Code(s): K74.60 - UNSPECIFIED CIRRHOSIS OF LIVER (4) Type II diabetes mellitus, uncontrolled Assessment/Plan: insulin and bgm Code(s): E11.65 - TYPE 2 DIABETES MELLITUS WITH HYPERGLYCEMIA (5) Acquired thrombocytopenia Assessment/Plan: secondary to cirrhosis/hyperslenism platelet count is better now 93 continue to monitor Code(s): D69.59 - OTHER SECONDARY THROMBOCYTOPENIA
--- NOTE | 2019-06-05 17:09 | PN ---
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 + orthopnea. Noted to havepancytopenia, ascites, coagulopathy, and elevated troponin. Echo glob HK ef 35-40 mild RVHK mod mr mod-sev TR Has atrial fibrillation Improving on Lasix 40mg IV daily and spironolactone His is not on AC or antiplatlets due to coagulopathy and liver disease - Current Medication List Current Medications: Active Medications Albuterol/Ipratropium (Duoneb -) 1 amp NEB RQ4H [facility] Last Admin: 06/05/19 16:14 Dose: 1 amp Ascorbic Acid (Vitamin C -) 500 mg PO DAILY [facility] Last Admin: 06/05/19 09:34 Dose: 500 mg Calcium Carbonate (Os-Gerhard 500mg -) 500 mg PO DAILY [facility] Last Admin: 06/05/19 09:34 Dose: 500 mg Ferrous Sulfate (Feosol -) 325 mg PO DAILY [facility] Last Admin: 06/05/19 09:34 Dose: 325 mg Furosemide (Lasix Injection -) 60 mg IVPUSH BID@0600,1400 [facility] Last Admin: 06/05/19 15:34 Dose: 60 mg Insulin Aspart (Novolog Vial Sliding Scale -) 1 vial SQ ACHS [facility]; Protocol Last Admin: 06/05/19 16:52 Dose: 6 units Insulin Detemir (Levemir Vial) 25 units SQ AM [facility] Last Admin: 06/05/19 07:03 Dose: 25 units Lactic Acid (Lac-Hydrin 12) 1 applic TP BID [facility] Last Admin: 06/05/19 09:37 Dose: 1 applic Lactulose (Cephulac (Oral Use)) 10 gm PO BID [facility] Last Admin: 06/05/19 09:34 Dose: 10 gm Metolazone (Zaroxolyn -) 5 mg PO DAILY@1330 [facility] Last Admin: 06/05/19 13:33 Dose: 5 mg Metoprolol Tartrate (Lopressor -) 50 mg PO BID [facility] Last Admin: 06/05/19 09:34 Dose: 50 mg Polyethylene Glycol (Miralax (For Daily Use) -) 17 gm PO BID [facility] Last Admin: 06/05/19 09:35 Dose: Not Given Spironolactone (Aldactone -) 25 mg PO DAILY [facility] Last Admin: 06/05/19 09:34 Dose: 25 mg Tamsulosin HCl (Flomax -) 0.4 mg PO DAILY@0830 [facility] Last Admin: 06/05/19 09:34 Dose: 0.4 mg - Objective Vital Signs: Vital Signs Temperature 97.8 F 06/05/19 13:16 Pulse Rate 106 H 06/05/19 13:16 Respiratory Rate 18 06/05/19 13:16 Blood Pressure 122/56 L 06/05/19 13:16 O2 Sat by Pulse Oximetry (%) 97 06/05/19 09:00 Constitutional: Yes: No Distress HENT: Yes: WNL Neck: Yes: WNL Cardiovascular: Yes: WNL, Regular Rate and Rhythm Gastrointestinal: Yes: Soft Edema: LLE: 1+, RLE: 1+ Neurological: Yes: Alert, Oriented Labs: CBC, BMP 06/05/19 07:20 06/05/19 07:20 INR, PTT INR 1.30 (0.83-1.09) H 05/27/19 11:05 Assessment/Plan 74 y/o M with a history of NIDDM, 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 + orthopnea. Noted to havepancytopenia, ascites, coagulopathy, and elevated troponin. Echo glob HK ef 35-40 mild RVHK mod mr mod-sev TR Has atrial fibrillation His is not on AC or antiplatlets due to coagulopathy and liver disease CHF Would increase Lasix to 60mg IV BID to for more aggressive diuresis Metolazone (Zaroxolyn -) 5 mg PO DAILY Continue aldactone 25 mg PO daily Follow I's/O's/Wt's/Lytes Improving slowly AFIB Rate controling with lopressor 50 mg PO BID No AC or antiplatlets due to coagulopathy and liver disease Active Medications Albuterol/Ipratropium (Duoneb -) 1 amp NEB RQ4H [facility] Last Admin: 06/05/19 16:14 Dose: 1 amp Ascorbic Acid (Vitamin C -) 500 mg PO DAILY [facility] Last Admin: 06/05/19 09:34 Dose: 500 mg Calcium Carbonate (Os-Gerhard 500mg -) 500 mg PO DAILY [facility] Last Admin: 06/05/19 09:34 Dose: 500 mg Ferrous Sulfate (Feosol -) 325 mg PO DAILY [facility] Last Admin: 06/05/19 09:34 Dose: 325 mg Furosemide (Lasix Injection -) 60 mg IVPUSH BID@0600,1400 [facility] Last Admin: 06/05/19 15:34 Dose: 60 mg Insulin Aspart (Novolog Vial Sliding Scale -) 1 vial SQ ACHS [facility]; Protocol Last Admin: 06/05/19 16:52 Dose: 6 units Insulin Detemir (Levemir Vial) 25 units SQ AM [facility] Last Admin: 06/05/19 07:03 Dose: 25 units Lactic Acid (Lac-Hydrin 12) 1 applic TP BID [facility] Last Admin: 06/05/19 09:37 Dose: 1 applic Lactulose (Cephulac (Oral Use)) 10 gm PO BID [facility] Last Admin: 06/05/19 09:34 Dose: 10 gm Metolazone (Zaroxolyn -) 5 mg PO DAILY@1330 [facility] Last Admin: 06/05/19 13:33 Dose: 5 mg Metoprolol Tartrate (Lopressor -) 50 mg PO BID [facility] Last Admin: 06/05/19 09:34 Dose: 50 mg Polyethylene Glycol (Miralax (For Daily Use) -) 17 gm PO BID [facility] Last Admin: 06/05/19 09:35 Dose: Not Given Spironolactone (Aldactone -) 25 mg PO DAILY [facility] Last Admin: 06/05/19 09:34 Dose: 25 mg Tamsulosin HCl (Flomax -) 0.4 mg PO DAILY@0830 [facility] Last Admin: 06/05/19 09:34 Dose: 0.4 mg
[2019-06-06] MEDS: ALBUTEROL SO4 2.5/IPRATROPIUM 0.5 INH SOL 3 ML VIAL.NEB. NEB SCH ×7 (00:41→23:38)
[2019-06-06] MEDS: FUROSEMIDE 40 MG/4 ML INJECTABLE VIAL IVPUSH SCH ×3 (06:43→21:08)
[2019-06-06] MEDS: INSULIN SLIDING SCALE (NOVOLOG) 1 VIAL SQ SCH ×4 (06:44→21:09)
[2019-06-06] MEDS: INSULIN (LEVEMIR) 100 UNITS/ML UNITS SQ SCH (06:44)
[2019-06-06 07:43] LABS: BLOOD UREA NITROGEN 64.2 mg/dL (7-18); CREATININE 1.6 mg/dL (0.55-1.3); POTASSIUM 4.3 mmol/L (3.5-5.1)
--- NOTE | 2019-06-06 08:44 | PN.GI ---
GI Progress Note Subjective: Patient noted with decrease in weight, he went from 295lbs to 292lbs. Noted with increase in Cr 1.4 to 1.6. Denies abdominal pain, vomiting, melena, rectal bleeding. - Objective Vital Signs: Vital Signs Temperature 98.0 F 06/06/19 06:00 Pulse Rate 100 H 06/06/19 06:00 Respiratory Rate 18 06/06/19 06:00 Blood Pressure 132/57 L 06/06/19 06:00 O2 Sat by Pulse Oximetry (%) 98 06/05/19 21:00 Constitutional: No Distress, Calm Eyes: Yes: Conjunctiva Clear HENT: Yes: Atraumatic Cardiovascular: Yes: Regular Rate and Rhythm Respiratory: Yes: Regular, Diminished, On Nasal O2 Gastrointestinal Inspection: Yes: Ascites. No: WNL, Distention, Hernia, Scars, Other ...Auscultate: Yes: Normoactive Bowel Sounds. No: Hyperactive Bowel Sounds, Hypoactive Bowel Sounds, No Bowel Sounds, Other ...Palpate: Yes: Soft. No: Firm/Rigid, Guarding, Hepatomegaly, Mass, Pulsatile Mass, Splenomegaly, Tenderness, Tenderness, Epigastium, Tenderness, Rebound, Other ...Percussion: Yes: Tympanitic. No: Dullness, Fluid Wave, Other Neurological: Yes: Alert, Oriented Psychiatric: Yes: Alert, Oriented Labs: CBC, BMP 06/05/19 07:20 06/06/19 05:50 INR, PTT INR 1.30 (0.83-1.09) H 05/27/19 11:05 Problem List - Problems (1) Cirrhosis of liver Assessment/Plan: >Lactulose, Nadolol, Spironolactone >Abdominal US reviewed >AFP neg >Abdominal MRI without contrast >Albumin 25% IVPB q12h x 4 doses re-ordered due to elevation in Cr >Furosemide 40mg IVP q12h 30min after albumin >monitor LFTs >DAILY WEIGHTS >Metozalone was added to regimen >Follow renal suggestion in regards to ascites/fluid management and recall as needed Code(s): K74.60 - UNSPECIFIED CIRRHOSIS OF LIVER (2) Hepatic encephalopathy Assessment/Plan: >Xifaxin, Lactulose >daily weights >resolved, recall as needed Code(s): K72.90 - HEPATIC FAILURE, UNSPECIFIED WITHOUT COMA
[2019-06-06] MEDS ORDERED: ALBUMIN HUMAN 25% 100 ML VIAL IVPB SCH (08:45)
[2019-06-06] MEDS: LACTULOSE 20 GM/30 ML UDC (FOR ORAL USE ONLY) PO SCH ×2 (09:21→21:09)
[2019-06-06] MEDS: FERROUS SO4 325 MG TABLET (FP) PO SCH (09:21)
[2019-06-06] MEDS: TAMSULOSIN HCL 0.4 MG CAP PO SCH (09:21)
[2019-06-06] MEDS: SPIRONOLACTONE 25 MG TABLET (FP) PO SCH (09:21)
[2019-06-06] MEDS: CALCIUM (OYSTER SHELL) 500 MG TABLET (FP) PO SCH (09:22)
[2019-06-06] MEDS: ASCORBIC ACID 500 MG TABLET (FP) PO SCH (09:22)
[2019-06-06] MEDS: POLYETHYLENE GLYCOL 3350 119 GM BTL PO SCH ×2 (09:22→21:10)
[2019-06-06] MEDS: METOPROLOL TARTRATE 50 MG TABLET (FP) PO SCH ×2 (09:22→21:08)
[2019-06-06] MEDS: AMMONIUM LACTATE 12% LOTION 225 GM BOTTLE TP SCH ×2 (09:25→21:10)
[2019-06-06 10:22] LABS: BASO % 0.8 % (0-2.0); EOS % 3.6 % (0-4.5); HEMATOCRIT 30.2 % (35.4-49); HEMOGLOBIN 10.1 GM/dL (11.7-16.9); LYMPH % 9.4 % (8-40); MCH 34.3 pg (25.7-33.7); MCHC 33.5 g/dl (32.0-35.9); MEAN CELL VOLUME 102.5 fl (80-96); MEAN PLT VOLUME 10.3 fl (7.5-11.1); MONO % 10.4 % (3.8-10.2); NEUT % 75.8 % (42.8-82.8); PLATELET COUNT 103 K/MM3 (134-434); RBC 2.95 M/mm3 (4.00-5.60); RDW 15.6 % (11.9-15.9)
--- NOTE | 2019-06-06 10:29 | PN ---
Progress Note (short form) - Note Progress Note: Fuv b/l feet +hypertrophic lession sub met 1st b/l hypertrophic lession Continue ammonium lactate will follow
--- NOTE | 2019-06-06 11:54 | PN ---
Progress Note, Physician Chief Complaint: patient seen and examined apparently could not get MRI last night as he could not fit in the machine breathing is getting better on increased dose 0f iv lasix - Current Medication List Current Medications: Active Medications Albumin Human (Albumin Human 25% -) 12.5 gm IVPB Q12H [facility] Stop: 06/07/19 20:46 Last Admin: 06/06/19 11:29 Dose: 12.5 gm Albuterol/Ipratropium (Duoneb -) 1 amp NEB RQ4H [facility] Last Admin: 06/06/19 11:08 Dose: 1 amp Ascorbic Acid (Vitamin C -) 500 mg PO DAILY [facility] Last Admin: 06/06/19 09:22 Dose: 500 mg Calcium Carbonate (Os-Gerhard 500mg -) 500 mg PO DAILY [facility] Last Admin: 06/06/19 09:22 Dose: 500 mg Ferrous Sulfate (Feosol -) 325 mg PO DAILY [facility] Last Admin: 06/06/19 09:21 Dose: 325 mg Furosemide (Lasix Injection -) 60 mg IVPUSH BID@0900,2100 [facility] Last Admin: 06/06/19 10:48 Dose: Not Given Insulin Aspart (Novolog Vial Sliding Scale -) 1 vial SQ ACHS [facility]; Protocol Last Admin: 06/06/19 11:07 Dose: 6 units Insulin Detemir (Levemir Vial) 25 units SQ AM [facility] Last Admin: 06/06/19 06:44 Dose: 25 units Lactic Acid (Lac-Hydrin 12) 1 applic TP BID [facility] Last Admin: 06/06/19 09:25 Dose: 1 applic Lactulose (Cephulac (Oral Use)) 10 gm PO BID [facility] Last Admin: 06/06/19 09:21 Dose: 10 gm Metolazone (Zaroxolyn -) 5 mg PO DAILY@1330 [facility] Last Admin: 06/05/19 13:33 Dose: 5 mg Metoprolol Tartrate (Lopressor -) 50 mg PO BID [facility] Last Admin: 06/06/19 09:22 Dose: 50 mg Polyethylene Glycol (Miralax (For Daily Use) -) 17 gm PO BID [facility] Last Admin: 06/06/19 09:22 Dose: Not Given Spironolactone (Aldactone -) 25 mg PO DAILY [facility] Last Admin: 06/06/19 09:21 Dose: 25 mg Tamsulosin HCl (Flomax -) 0.4 mg PO DAILY@0830 [facility] Last Admin: 06/06/19 09:21 Dose: 0.4 mg - Objective Vital Signs: Vital Signs Temperature 97.8 F 06/06/19 10:00 Pulse Rate 129 H 06/06/19 10:00 Respiratory Rate 18 06/06/19 10:00 Blood Pressure 128/66 06/06/19 10:00 O2 Sat by Pulse Oximetry (%) 98 06/05/19 21:00 Constitutional: Yes: Calm Eyes: Yes: Sclera Icterus Cardiovascular: Yes: Regular Rate and Rhythm, S1, S2 Respiratory: Yes: Diminished, On Nasal O2 Gastrointestinal: Yes: Soft, Ascites Edema: Yes (improved) Neurological: Yes: Alert, Oriented Labs: CBC, BMP 06/06/19 05:50 06/06/19 05:50 INR, PTT INR 1.30 (0.83-1.09) H 05/27/19 11:05 Problem List - Problems (1) CHF (congestive heart failure) Assessment/Plan: iv lasix dose increase to 60mg bid albumin completed echo left ventricle systolic function is severly reduced chest ct show right side pleural effusion more than left side pleural effusion Code(s): I50.9 - HEART FAILURE, UNSPECIFIED Qualifiers: Heart failure type: unspecified Heart failure chronicity: acute on chronic Qualified Code(s): I50.9 - Heart failure, unspecified (2) Ascites Assessment/Plan: continue with lasix and now on metalozone and aldactone improving with increased dose of iv lasix 60mg bid Code(s): R18.8 - OTHER ASCITES (3) Cirrhosis of liver Assessment/Plan: aldactone ,nadolol,rifaximin, ultrasound shows liver mass in left lobe cannot get MRI of liver as he could not fit in the machine lenin. need outpatient open MRI Code(s): K74.60 - UNSPECIFIED CIRRHOSIS OF LIVER (4) Type II diabetes mellitus, uncontrolled Assessment/Plan: insulin and bgm Code(s): E11.65 - TYPE 2 DIABETES MELLITUS WITH HYPERGLYCEMIA (5) Acquired thrombocytopenia Assessment/Plan: secondary to cirrhosis/hyperslenism platelet count is better now 93 continue to monitor Code(s): D69.59 - OTHER SECONDARY THROMBOCYTOPENIA (6) Afib Assessment/Plan: on AC bc of coagulopathy and liver disease metoprolol 50mg po bid Code(s): I48.91 - UNSPECIFIED ATRIAL FIBRILLATION
[2019-06-06] MEDS: METOLAZONE 2.5 MG TABLET (FP) PO SCH (12:48)
--- NOTE | 2019-06-06 13:21 | PN ---
Progress Note, Physician History of Present Illness: pulmonary awake,breathing better,comfortable - Current Medication List Current Medications: Active Medications Albumin Human (Albumin Human 25% -) 12.5 gm IVPB Q12H [facility] Stop: 06/07/19 20:46 Last Admin: 06/06/19 11:29 Dose: 12.5 gm Albuterol/Ipratropium (Duoneb -) 1 amp NEB RQ4H [facility] Last Admin: 06/06/19 11:08 Dose: 1 amp Ascorbic Acid (Vitamin C -) 500 mg PO DAILY [facility] Last Admin: 06/06/19 09:22 Dose: 500 mg Calcium Carbonate (Os-Gerhard 500mg -) 500 mg PO DAILY [facility] Last Admin: 06/06/19 09:22 Dose: 500 mg Ferrous Sulfate (Feosol -) 325 mg PO DAILY [facility] Last Admin: 06/06/19 09:21 Dose: 325 mg Furosemide (Lasix Injection -) 60 mg IVPUSH BID@0900,2100 [facility] Last Admin: 06/06/19 10:48 Dose: Not Given Insulin Aspart (Novolog Vial Sliding Scale -) [address] [facility]; Protocol Last Admin: 06/06/19 11:07 Dose: 6 units Insulin Detemir (Levemir Vial) 25 units SQ AM [facility] Last Admin: 06/06/19 06:44 Dose: 25 units Lactic Acid (Lac-Hydrin 12) 1 applic TP BID [facility] Last Admin: 06/06/19 09:25 Dose: 1 applic Lactulose (Cephulac (Oral Use)) 10 gm PO BID [facility] Last Admin: 06/06/19 09:21 Dose: 10 gm Metolazone (Zaroxolyn -) 5 mg PO DAILY@1330 [facility] Last Admin: 06/06/19 12:48 Dose: 5 mg Metoprolol Tartrate (Lopressor -) 50 mg PO BID [facility] Last Admin: 06/06/19 09:22 Dose: 50 mg Polyethylene Glycol (Miralax (For Daily Use) -) 17 gm PO BID [facility] Last Admin: 06/06/19 09:22 Dose: Not Given Spironolactone (Aldactone -) 25 mg PO DAILY [facility] Last Admin: 06/06/19 09:21 Dose: 25 mg Tamsulosin HCl (Flomax -) 0.4 mg PO DAILY@0830 [facility] Last Admin: 06/06/19 09:21 Dose: 0.4 mg - Objective Vital Signs: Vital Signs Temperature 97.8 F 06/06/19 10:00 Pulse Rate 129 H 06/06/19 10:00 Respiratory Rate 18 06/06/19 10:00 Blood Pressure 128/66 06/06/19 10:00 O2 Sat by Pulse Oximetry (%) 98 06/05/19 21:00 Constitutional: Yes: Well Nourished, Calm, Obese Eyes: Yes: WNL HENT: Yes: WNL Neck: Yes: WNL Cardiovascular: Yes: Regular Rate and Rhythm, S1, S2 Respiratory: Yes: Diminished Extremities: Yes: WNL Edema: Yes Labs: CBC, BMP 06/06/19 05:50 06/06/19 05:50 INR, PTT INR 1.30 (0.83-1.09) H 05/27/19 11:05 Problem List - Problems (1) SOPHIE (acute kidney injury) Code(s): N17.9 - ACUTE KIDNEY FAILURE, UNSPECIFIED (2) CHF (congestive heart failure) Code(s): I50.9 - HEART FAILURE, UNSPECIFIED Qualifiers: Heart failure type: unspecified Heart failure chronicity: acute on chronic Qualified Code(s): I50.9 - Heart failure, unspecified (3) Pancytopenia Code(s): D61.818 - OTHER PANCYTOPENIA (4) Acute renal failure (ARF) Code(s): N17.9 - ACUTE KIDNEY FAILURE, UNSPECIFIED (5) Altered mental status Code(s): R41.82 - ALTERED MENTAL STATUS, UNSPECIFIED Qualifiers: Altered mental status type: disorientation Qualified Code(s): R41.0 - Disorientation, unspecified (6) Anemia Code(s): D64.9 - ANEMIA, UNSPECIFIED (7) COPD (chronic obstructive pulmonary disease) Code(s): J44.9 - CHRONIC OBSTRUCTIVE PULMONARY DISEASE, UNSPECIFIED (8) Chronic systolic congestive heart failure Code(s): I50.22 - CHRONIC SYSTOLIC (CONGESTIVE) HEART FAILURE (9) Cirrhosis of liver Code(s): K74.60 - UNSPECIFIED CIRRHOSIS OF LIVER (10) Esophageal varices Code(s): I85.00 - ESOPHAGEAL VARICES WITHOUT BLEEDING (11) Hepatic encephalopathy Code(s): K72.90 - HEPATIC FAILURE, UNSPECIFIED WITHOUT COMA (12) Hypoxia Code(s): R09.02 - HYPOXEMIA (13) Acute on chronic respiratory failure with hypoxia and hypercapnia Code(s): J96.21 - ACUTE AND CHRONIC RESPIRATORY FAILURE WITH HYPOXIA; J96.22 - ACUTE AND CHRONIC RESPIRATORY FAILURE WITH HYPERCAPNIA Assessment/Plan CONSULTATION DICTATED 05/08/19 IMP DYSPNEA IMPROVING CHF IMPROVING ACUTE ON CHRONIC HYPOXEMIC/HYPERCAPNEIC RESPIRATORY FAILURE IMPROVING VOLUME OVERLOAD IMPROVING ASCITES COPD O2 DEPENDENT PLEURAL EFFUSION HEPATIC ENCEPHALOPATHY DM CIRRHOSIS WITH ESOPHAGEAL VARICES S/P BANDING PANCYTOPENIA SLOWLY IMPROVING SOPHIE H/O ETOH PLAN CONTINUE DIURETICS O2 DAILY WT MONITOR LYTES,RENAL FUNCTION MONITOR H+H DR COLLAZO Problem List - Problems (1) SOPHIE (acute kidney injury) Code(s): N17.9 - ACUTE KIDNEY FAILURE, UNSPECIFIED (2) CHF (congestive heart failure) Code(s): I50.9 - HEART FAILURE, UNSPECIFIED Qualifiers: Heart failure type: unspecified Heart failure chronicity: acute on chronic Qualified Code(s): I50.9 - Heart failure, unspecified (3) Pancytopenia Code(s): D61.818 - OTHER PANCYTOPENIA (4) Acute renal failure (ARF) Code(s): N17.9 - ACUTE KIDNEY FAILURE, UNSPECIFIED (5) Altered mental status Code(s): R41.82 - ALTERED MENTAL STATUS, UNSPECIFIED Qualifiers: Altered mental status type: disorientation Qualified Code(s): R41.0 - Disorientation, unspecified (6) Anemia Code(s): D64.9 - ANEMIA, UNSPECIFIED (7) COPD (chronic obstructive pulmonary disease) Code(s): J44.9 - CHRONIC OBSTRUCTIVE PULMONARY DISEASE, UNSPECIFIED (8) Chronic systolic congestive heart failure Code(s): I50.22 - CHRONIC SYSTOLIC (CONGESTIVE) HEART FAILURE (9) Cirrhosis of liver Code(s): K74.60 - UNSPECIFIED CIRRHOSIS OF LIVER (10) Esophageal varices Code(s): I85.00 - ESOPHAGEAL VARICES WITHOUT BLEEDING (11) Hepatic encephalopathy Code(s): K72.90 - HEPATIC FAILURE, UNSPECIFIED WITHOUT COMA (12) Hypoxia Code(s): R09.02 - HYPOXEMIA (13) Acute on chronic respiratory failure with hypoxia and hypercapnia Code(s): J96.21 - ACUTE AND CHRONIC RESPIRATORY FAILURE WITH HYPOXIA; J96.22 - ACUTE AND CHRONIC RESPIRATORY FAILURE WITH HYPERCAPNIA
--- NOTE | 2019-06-06 15:10 | PN ---
Progress Note (short form) - Note Progress Note: Renal follow up for SOPHIE/CKD Seen and examined at the bedside awake and alert no acute complaints sob is improved making urine Vital Signs Temperature 97.8 F 06/06/19 10:00 Pulse Rate 129 H 06/06/19 10:00 Respiratory Rate 18 06/06/19 10:00 Blood Pressure 128/66 06/06/19 10:00 O2 Sat by Pulse Oximetry (%) 95 06/06/19 10:00 Intake & Output 06/03/19 06/04/19 06/05/19 06/06/19 23:59 23:59 23:59 23:59 Intake Total 1370 1230 1000 370 Output Total 1275 1030 2120 500 Balance 95 200 -1120 -130 Weight 133.583 kg 133.81 kg 133.084 kg 132.63 kg NAD awake and alert neck supple RRR CTA + abd ascities + LE edema CBC, BMP 06/06/19 05:50 06/06/19 05:50 Current Medications Albumin Human (Albumin Human 25% -) 12.5 gm IVPB Q12H [facility] Stop: 06/07/19 20:46 Last Admin: 06/06/19 11:29 Dose: 12.5 gm Albuterol/Ipratropium (Duoneb -) 1 amp NEB RQ4H [facility] Last Admin: 06/06/19 11:08 Dose: 1 amp Ascorbic Acid (Vitamin C -) 500 mg PO DAILY [facility] Last Admin: 06/06/19 09:22 Dose: 500 mg Calcium Carbonate (Os-Gerhard 500mg -) 500 mg PO DAILY [facility] Last Admin: 06/06/19 09:22 Dose: 500 mg Ferrous Sulfate (Feosol -) 325 mg PO DAILY [facility] Last Admin: 06/06/19 09:21 Dose: 325 mg Furosemide (Lasix Injection -) 60 mg IVPUSH BID@0900,2100 [facility] Last Admin: 06/06/19 10:48 Dose: Not Given Insulin Aspart (Novolog Vial Sliding Scale -) 1 vial SQ ACHS [facility]; Protocol Last Admin: 06/06/19 11:07 Dose: 6 units Insulin Detemir (Levemir Vial) 25 units SQ AM [facility] Last Admin: 06/06/19 06:44 Dose: 25 units Lactic Acid (Lac-Hydrin 12) 1 applic TP BID [facility] Last Admin: 06/06/19 09:25 Dose: 1 applic Lactulose (Cephulac (Oral Use)) 10 gm PO BID [facility] Last Admin: 06/06/19 09:21 Dose: 10 gm Metolazone (Zaroxolyn -) 5 mg PO DAILY@1330 [facility] Last Admin: 06/06/19 12:48 Dose: 5 mg Metoprolol Tartrate (Lopressor -) 50 mg PO BID [facility] Last Admin: 06/06/19 09:22 Dose: 50 mg Polyethylene Glycol (Miralax (For Daily Use) -) 17 gm PO BID [facility] Last Admin: 06/06/19 09:22 Dose: Not Given Spironolactone (Aldactone -) 25 mg PO DAILY [facility] Last Admin: 06/06/19 09:21 Dose: 25 mg Tamsulosin HCl (Flomax -) 0.4 mg PO DAILY@0830 [facility] Last Admin: 06/06/19 09:21 Dose: 0.4 mg 74 year old gentleman with history of Alcoholic cirrhosis, hypertension, CHF presented with shortness of breath and increased abdominal girth and admitted for worsening ascities. 1. CKD vs. SOPHIE from fluid shifts 2. Alcoholic cirrhosis with ascities 3. Anemia 4. Leukopenia/thrombocytopenia 5. CHF 6. Hypertension 7. Mild hyperkalemia Renal function stable Continue Lasix 60mg IV BID, metolazone 5mg Daily, Aldactone 25mg daily Trend daily weights, electrolytes and renal function Ang Sanchez DO
--- NOTE | 2019-06-06 15:57 | PN ---
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 + orthopnea. Noted to havepancytopenia, ascites, coagulopathy, and elevated troponin. Echo glob HK ef 35-40 mild RVHK mod mr mod-sev TR Has atrial fibrillation Improving on Lasix 40mg IV daily and spironolactone His is not on AC or antiplatlets due to coagulopathy and liver disease - Current Medication List Current Medications: Active Medications Albumin Human (Albumin Human 25% -) 12.5 gm IVPB Q12H [facility] Stop: 06/07/19 20:46 Last Admin: 06/06/19 11:29 Dose: 12.5 gm Albuterol/Ipratropium (Duoneb -) 1 amp NEB RQ4H [facility] Last Admin: 06/06/19 11:08 Dose: 1 amp Ascorbic Acid (Vitamin C -) 500 mg PO DAILY [facility] Last Admin: 06/06/19 09:22 Dose: 500 mg Calcium Carbonate (Os-Gerhard 500mg -) 500 mg PO DAILY [facility] Last Admin: 06/06/19 09:22 Dose: 500 mg Ferrous Sulfate (Feosol -) 325 mg PO DAILY [facility] Last Admin: 06/06/19 09:21 Dose: 325 mg Furosemide (Lasix Injection -) 60 mg IVPUSH BID@0900,2100 [facility] Last Admin: 06/06/19 10:48 Dose: Not Given Insulin Aspart (Novolog Vial Sliding Scale -) 1 vial SQ ACHS [facility]; Protocol Last Admin: 06/06/19 11:07 Dose: 6 units Insulin Detemir (Levemir Vial) 25 units SQ AM [facility] Last Admin: 06/06/19 06:44 Dose: 25 units Lactic Acid (Lac-Hydrin 12) 1 applic TP BID [facility] Last Admin: 06/06/19 09:25 Dose: 1 applic Lactulose (Cephulac (Oral Use)) 10 gm PO BID [facility] Last Admin: 06/06/19 09:21 Dose: 10 gm Metolazone (Zaroxolyn -) 5 mg PO DAILY@1330 [facility] Last Admin: 06/06/19 12:48 Dose: 5 mg Metoprolol Tartrate (Lopressor -) 50 mg PO BID [facility] Last Admin: 06/06/19 09:22 Dose: 50 mg Polyethylene Glycol (Miralax (For Daily Use) -) 17 gm PO BID [facility] Last Admin: 06/06/19 09:22 Dose: Not Given Spironolactone (Aldactone -) 25 mg PO DAILY [facility] Last Admin: 06/06/19 09:21 Dose: 25 mg Tamsulosin HCl (Flomax -) 0.4 mg PO DAILY@0830 [facility] Last Admin: 06/06/19 09:21 Dose: 0.4 mg - Objective Vital Signs: Vital Signs Temperature 98.2 F 06/06/19 14:33 Pulse Rate 131 H 06/06/19 14:33 Respiratory Rate 20 06/06/19 14:33 Blood Pressure 121/69 06/06/19 14:33 O2 Sat by Pulse Oximetry (%) 95 06/06/19 10:00 Constitutional: Yes: No Distress Eyes: Yes: WNL HENT: Yes: WNL Cardiovascular: Yes: Pulse Irregular, S1, S2 Respiratory: Yes: Diminished (Basilar) Gastrointestinal: Yes: Normal Bowel Sounds Edema: RUE: 1+, LLE: 1+ Neurological: Yes: Alert, Oriented Labs: CBC, BMP 06/06/19 05:50 06/06/19 05:50 INR, PTT INR 1.30 (0.83-1.09) H 05/27/19 11:05 Assessment/Plan 74 y/o M with a history of NIDDM, 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 + orthopnea. Noted to havepancytopenia, ascites, coagulopathy, and elevated troponin. 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
[2019-06-06] MEDS ORDERED: PT OWN MED DRAWER 7, Y5N ONE ×2 (20:23→20:38)
[2019-06-06] MEDS: ALBUMIN HUMAN 25% 12.5 GM/50 ML VIAL IVPB SCH (21:15)
[2019-06-07] MEDS: ALBUTEROL SO4 2.5/IPRATROPIUM 0.5 INH SOL 3 ML VIAL.NEB. NEB SCH ×6 (03:35→23:50)
[2019-06-07] MEDS: INSULIN (LEVEMIR) 100 UNITS/ML UNITS SQ SCH (06:08)
[2019-06-07] MEDS: INSULIN SLIDING SCALE (NOVOLOG) 1 VIAL SQ SCH ×4 (06:09→21:19)
[2019-06-07 07:57] LABS: BLOOD UREA NITROGEN 67.3 mg/dL (7-18); CALCIUM 8.5 mg/dL (8.5-10.1); CREATININE 1.7 mg/dL (0.55-1.3); MAGNESIUM 2.4 mg/dL (1.8-2.4); PHOSPHOROUS 4.2 mg/dL (2.5-4.9)
[2019-06-07] MEDS: TAMSULOSIN HCL 0.4 MG CAP PO SCH (09:10)
[2019-06-07] MEDS: FUROSEMIDE 40 MG/4 ML INJECTABLE VIAL IVPUSH SCH (09:11)
[2019-06-07] MEDS: SPIRONOLACTONE 25 MG TABLET (FP) PO SCH (09:11)
[2019-06-07] MEDS: FERROUS SO4 325 MG TABLET (FP) PO SCH (09:11)
[2019-06-07] MEDS: ASCORBIC ACID 500 MG TABLET (FP) PO SCH (09:11)
[2019-06-07] MEDS: METOPROLOL TARTRATE 50 MG TABLET (FP) PO SCH ×2 (09:11→21:20)
[2019-06-07] MEDS: LACTULOSE 20 GM/30 ML UDC (FOR ORAL USE ONLY) PO SCH ×2 (09:11→21:20)
[2019-06-07] MEDS: CALCIUM (OYSTER SHELL) 500 MG TABLET (FP) PO SCH (09:11)
[2019-06-07] MEDS: POLYETHYLENE GLYCOL 3350 119 GM BTL PO SCH ×2 (09:12→21:19)
[2019-06-07] MEDS: AMMONIUM LACTATE 12% LOTION 225 GM BOTTLE TP SCH ×2 (09:23→21:20)
--- NOTE | 2019-06-07 10:07 | PN ---
Progress Note, Physician Chief Complaint: AWAKE CONFUSED BASELINE EVENTS AND NOTES REVIEWED - Current Medication List Current Medications: Active Medications Albumin Human (Albumin Human 25%) 12.5 gm IVPB Q12H [facility] Stop: 06/07/19 20:46 Last Admin: 06/06/19 21:15 Dose: 12.5 gm Albuterol/Ipratropium (Duoneb -) 1 amp NEB RQ4H [facility] Last Admin: 06/07/19 07:45 Dose: 1 amp Ascorbic Acid (Vitamin C -) 500 mg PO DAILY [facility] Last Admin: 06/07/19 09:11 Dose: 500 mg Calcium Carbonate (Os-Gerhard 500mg -) 500 mg PO DAILY [facility] Last Admin: 06/07/19 09:11 Dose: 500 mg Ferrous Sulfate (Feosol -) 325 mg PO DAILY [facility] Last Admin: 06/07/19 09:11 Dose: 325 mg Furosemide (Lasix Injection -) 60 mg IVPUSH BID@0900,2100 [facility] Last Admin: 06/07/19 09:11 Dose: 60 mg Insulin Aspart (Novolog Vial Sliding Scale -) 1 vial SQ [facility]; Protocol Last Admin: 06/07/19 06:09 Dose: 4 units Insulin Detemir (Levemir Vial) 25 units SQ AM [facility] Last Admin: 06/07/19 06:08 Dose: 25 units Lactic Acid (Lac-Hydrin 12) 1 applic TP BID [facility] Last Admin: 06/07/19 09:23 Dose: 1 applic Lactulose (Cephulac (Oral Use)) 10 gm PO BID [facility] Last Admin: 06/07/19 09:11 Dose: 10 gm Metolazone (Zaroxolyn -) 5 mg PO DAILY@1330 [facility] Last Admin: 06/06/19 12:48 Dose: 5 mg Metoprolol Tartrate (Lopressor -) 50 mg PO BID [facility] Last Admin: 06/07/19 09:11 Dose: 50 mg Polyethylene Glycol (Miralax (For Daily Use) -) 17 gm PO BID [facility] Last Admin: 06/07/19 09:12 Dose: Not Given Spironolactone (Aldactone -) 25 mg PO DAILY [facility] Last Admin: 06/07/19 09:11 Dose: 25 mg Tamsulosin HCl (Flomax -) 0.4 mg PO DAILY@0830 [facility] Last Admin: 11/09/19 09:10 Dose: 0.4 mg - Objective Vital Signs: Vital Signs Temperature 97.4 F L 06/07/19 09:25 Pulse Rate 104 H 06/07/19 09:25 Respiratory Rate 20 06/07/19 09:25 Blood Pressure 112/62 06/07/19 09:25 O2 Sat by Pulse Oximetry (%) 95 06/06/19 10:00 Constitutional: Yes: No Distress Cardiovascular: Yes: Regular Rate and Rhythm Respiratory: Yes: On Nasal O2, Poor Air Entry Gastrointestinal: Yes: Soft, Abdomen, Obese Genitourinary: Yes: Incontinence Musculoskeletal: Yes: Muscle Weakness Edema: Yes Edema: LLE: Trace, RLE: Trace Peripheral Pulses WNL: Yes ...Motor Strength: LLE, RLE Psychiatric: Yes: Other Labs: CBC, BMP 06/06/19 05:50 06/07/19 06:00 INR, PTT INR 1.30 (0.83-1.09) H 05/27/19 11:05 Problem List - Problems (1) SOPHIE (acute kidney injury) Code(s): N17.9 - ACUTE KIDNEY FAILURE, UNSPECIFIED (2) Acute on chronic respiratory failure with hypoxia and hypercapnia Code(s): J96.21 - ACUTE AND CHRONIC RESPIRATORY FAILURE WITH HYPOXIA; J96.22 - ACUTE AND CHRONIC RESPIRATORY FAILURE WITH HYPERCAPNIA (3) Afib Code(s): I48.91 - UNSPECIFIED ATRIAL FIBRILLATION (4) Ascites Code(s): R18.8 - OTHER ASCITES (5) CHF (congestive heart failure) Code(s): I50.9 - HEART FAILURE, UNSPECIFIED Qualifiers: Heart failure type: unspecified Heart failure chronicity: acute on chronic Qualified Code(s): I50.9 - Heart failure, unspecified (6) Hepatic encephalopathy Code(s): K72.90 - HEPATIC FAILURE, UNSPECIFIED WITHOUT COMA (7) Type II diabetes mellitus, uncontrolled Code(s): E11.65 - TYPE 2 DIABETES MELLITUS WITH HYPERGLYCEMIA Assessment/Plan LASIX FOR EDEMA AND FLUID OVERLOAD HEPARIN SQ DVT PROPHYLAXIS OOB TO CHAIR PT EVAL HEPATIC ENCEPHALOPATHY MONITOR MS AND LFT. SNF PLACEMENT RESP F/U FOR SOB
--- NOTE | 2019-06-07 10:11 | PN ---
Progress Note (short form) - Note Progress Note: DIURESIS WILL BE CONTINUED OUTPATIENT TORSEMIDE 60MG DAILY ALDACTONE 25MG DAILY THEN TAPER OFF METOLAZONE FROM 5MG DAILY TO 2.5MG DAILY THEN EVERY OTHER DAY PRN OVER 1 WEEK Problem List - Problems (1) SOPHIE (acute kidney injury) Code(s): N17.9 - ACUTE KIDNEY FAILURE, UNSPECIFIED (2) Acute on chronic respiratory failure with hypoxia and hypercapnia Code(s): J96.21 - ACUTE AND CHRONIC RESPIRATORY FAILURE WITH HYPOXIA; J96.22 - ACUTE AND CHRONIC RESPIRATORY FAILURE WITH HYPERCAPNIA (3) Afib Code(s): I48.91 - UNSPECIFIED ATRIAL FIBRILLATION (4) Ascites Code(s): R18.8 - OTHER ASCITES (5) CHF (congestive heart failure) Code(s): I50.9 - HEART FAILURE, UNSPECIFIED Qualifiers: Heart failure type: unspecified Heart failure chronicity: acute on chronic Qualified Code(s): I50.9 - Heart failure, unspecified (6) Hepatic encephalopathy Code(s): K72.90 - HEPATIC FAILURE, UNSPECIFIED WITHOUT COMA (7) Type II diabetes mellitus, uncontrolled Code(s): E11.65 - TYPE 2 DIABETES MELLITUS WITH HYPERGLYCEMIA
--- NOTE | 2019-06-07 10:26 | DS ---
Physical Examination Vital Signs: Vital Signs Temperature 97.4 F L 06/07/19 09:25 Pulse Rate 104 H 06/07/19 09:25 Respiratory Rate 20 06/07/19 09:25 Blood Pressure 112/62 06/07/19 09:25 O2 Sat by Pulse Oximetry (%) 95 06/06/19 10:00 Findings/Remarks: SEE PROGRESS NOTE Labs: CBC, BMP 06/06/19 05:50 06/07/19 06:00 Discharge Summary Problems reviewed: Yes Reason For Visit: ACUTE KIDNEY INJURY,CHF,ELEVATED TROPONIN LEVEL Current Active Problems SOPHIE (acute kidney injury) (Acute) Acute on chronic respiratory failure with hypoxia and hypercapnia (Acute) Afib (Acute) Ascites (Acute) CHF (congestive heart failure) (Acute) Pancytopenia (Acute) Troponin level elevated (Acute) Procedures: Principal: LABS XRAYS CT SCANS Hospital Course: ADMITTED CIRRHOSIS, FLUID OVERLOAD, TREATED WITH GI/CARDIO/RENAL FOR CONGESTIVE HF, CRF, ARF, CIRRHOSIS ETOH, TOXIC METABOLIC ENCEPHALOPTHY, CONFUSION, EDEMA. Plan of Treatment: DIURESE WITH TORSEMIDE 60MG DAILY AND ALDACTONE 25MG DAILY, THEN TAPER OFF METOLAZONE FROM 5MG DAILY FOR 2 DAYS THEN 2.5MG DAILT FOR 2 DAYS THEN EVERY OTHER DAY FOR 1 WEEK. Goals: CHECK LABS BMP EVERY 3 DAYS TAPER OFF METOLAZONE Condition: Guarded - Instructions Diet, Activity, Other Instructions: DIURETICS TORSEMIDE 60MG DAILY ALDACTONE 25MG DAILT THEN TAPER OFF METOLAZONE FROM 5MG DAILY TO 2.5MG DAILY YHEN EVERY OTHER DAY NEEDED CHECK BMP EVERY 3 DAYS NO AC/ANTIPLATLETS BECAUSE OF LIVER FAILURE GI AND CARDIO FOLLOW UP RENAL FOLLOW UP Referrals: Nidhi Vargas MD [Primary Care Provider] - [facility]position[facility] - Home Medications Comprehensive Discharge Medication List: Ambulatory Orders Omeprazole 20 mg PO DAILY 11/05/18 Tamsulosin HCl [Flomax] 0.4 mg PO DAILY 11/05/18 Rifaximin [Xifaxan -] 550 mg PO BID #60 tablet 11/08/18 Lactulose 10 gm PO BID 03/28/19 Spironolactone 25 mg PO DAILY 03/28/19 Insulin Sliding Scale [Novolog Vial Sliding Scale -] 1 vial SQ ACHS units 04/05 Nadolol [Corgard -] 40 mg PO DAILY tablet 04/05/19 Polyethylene Glycol 3350 [Miralax 119 gm Btl -] 34 gm PO BID bottle 04/05/19 Acetaminophen [Tylenol] 650 mg PO TID 05/27/19 Ascorbate Calcium [Vitamin C] 500 mg PO DAILY 05/27/19 Calcium (Oyster Shell) [Os-Gerhard 500Mg -] 500 mg PO DAILY 05/27/19 Dextran 70/Hypromellose/Pf [Artificial Tears Drops] 1 each OP DAILY 05/27/19 Ferrous Sulfate 325 mg PO DAILY 05/27/19 Insulin (Levemir) [Levemir Vial] 25 unit SQ AM 05/27/19 Prescription Drug Monitoring Program (I-STOP) results: I-STOP not reviewed
[2019-06-07] MEDS: ALBUMIN HUMAN 25% 12.5 GM/50 ML VIAL IVPB SCH ×2 (11:20→20:25)
--- NOTE | 2019-06-07 11:45 | PN ---
Progress Note (short form) - Note Progress Note: Overall breathing feels better. No CP. Some dry cough. No acute events overnight. Intake & Output 06/04/19 06/05/19 06/06/19 06/07/19 23:59 23:59 23:59 23:59 Intake Total 1230 1000 1150 Output Total 1030 2120 1430 675 Balance 200 -1120 -280 -675 Weight 295 lb 293 lb 6.4 oz 292 lb 6.4 oz 292 lb 4.8 oz Last Vital Signs Temp Pulse Resp BP Pulse Ox 97.4 F L 104 H 20 112/62 95 06/07/19 09:25 06/07/19 09:25 06/07/19 09:25 06/07/19 09:25 06/06/19 10:00 Active Medications Albumin Human (Albumin Human 25%) 12.5 gm IVPB Q12H [facility] Stop: 06/07/19 20:46 Last Admin: 06/07/19 11:20 Dose: 12.5 gm Albuterol/Ipratropium (Duoneb -) 1 amp NEB RQ4H [facility] Last Admin: 06/07/19 07:45 Dose: 1 amp Ascorbic Acid (Vitamin C -) 500 mg PO DAILY [facility] Last Admin: 06/07/19 09:11 Dose: 500 mg Calcium Carbonate (Os-Gerhard 500mg -) 500 mg PO DAILY [facility] Last Admin: 06/07/19 09:11 Dose: 500 mg Ferrous Sulfate (Feosol -) 325 mg PO DAILY [facility] Last Admin: 06/07/19 09:11 Dose: 325 mg Insulin Aspart (Novolog Vial Sliding Scale -) 1 vial SQ ACHS [facility]; Protocol Last Admin: 06/07/19 11:22 Dose: 2 units Insulin Detemir (Levemir Vial) 25 units SQ AM [facility] Last Admin: 06/07/19 06:08 Dose: 25 units Lactic Acid (Lac-Hydrin 12) 1 applic TP BID [facility] Last Admin: 06/07/19 09:23 Dose: 1 applic Lactulose (Cephulac (Oral Use)) 10 gm PO BID [facility] Last Admin: 06/07/19 09:11 Dose: 10 gm Metolazone (Zaroxolyn -) 5 mg PO DAILY@1330 [facility] Last Admin: 06/06/19 12:48 Dose: 5 mg Metoprolol Tartrate (Lopressor -) 50 mg PO BID [facility] Last Admin: 06/07/19 09:11 Dose: 50 mg Polyethylene Glycol (Miralax (For Daily Use) -) 17 gm PO BID [facility] Last Admin: 06/07/19 09:12 Dose: Not Given Spironolactone (Aldactone -) 25 mg PO DAILY [facility] Last Admin: 06/07/19 09:11 Dose: 25 mg Tamsulosin HCl (Flomax -) 0.4 mg PO DAILY@0830 [facility] Last Admin: 06/07/19 09:10 Dose: 0.4 mg Torsemide (Demadex -) 60 mg PO DAILY [facility] Constitutional: Yes: NAD, Obese Eyes: Yes: WNL HENT: Yes: WNL Neck: Yes: WNL Cardiovascular: Yes: Regular Rate and Rhythm, S1, S2 Respiratory: Yes: Diminished Extremities: Yes: WNL Edema: Yes Labs: Laboratory Results - last 24 hr 06/06/19 06/06/19 06/07/19 17:12 20:34 05:58 Sodium Potassium Chloride Carbon Dioxide Anion Gap BUN Creatinine Est GFR (CKD-EPI)AfAm Est GFR (CKD-EPI)NonAf POC Glucometer 269 264 255 Random Glucose Calcium Phosphorus Magnesium 06/07/19 06/07/19 06:00 11:19 Sodium 135 L Potassium 4.0 Chloride 98 Carbon Dioxide 29 Anion Gap 8 BUN 67.3 H Creatinine 1.7 H Est GFR (CKD-EPI)AfAm 45.36 Est GFR (CKD-EPI)NonAf 39.14 POC Glucometer 276 Random Glucose 274 H Calcium 8.5 Phosphorus 4.2 Magnesium 2.4 Problem List - Problems (1) SOPHIE (acute kidney injury) Code(s): N17.9 - ACUTE KIDNEY FAILURE, UNSPECIFIED (2) CHF (congestive heart failure) Code(s): I50.9 - HEART FAILURE, UNSPECIFIED Qualifiers: Heart failure type: unspecified Heart failure chronicity: acute on chronic Qualified Code(s): I50.9 - Heart failure, unspecified (3) Pancytopenia Code(s): D61.818 - OTHER PANCYTOPENIA (4) Acute renal failure (ARF) Code(s): N17.9 - ACUTE KIDNEY FAILURE, UNSPECIFIED (5) Altered mental status Code(s): R41.82 - ALTERED MENTAL STATUS, UNSPECIFIED Qualifiers: Altered mental status type: disorientation Qualified Code(s): R41.0 - Disorientation, unspecified (6) Anemia Code(s): D64.9 - ANEMIA, UNSPECIFIED (7) COPD (chronic obstructive pulmonary disease) Code(s): J44.9 - CHRONIC OBSTRUCTIVE PULMONARY DISEASE, UNSPECIFIED (8) Chronic systolic congestive heart failure Code(s): I50.22 - CHRONIC SYSTOLIC (CONGESTIVE) HEART FAILURE (9) Cirrhosis of liver Code(s): K74.60 - UNSPECIFIED CIRRHOSIS OF LIVER (10) Esophageal varices Code(s): I85.00 - ESOPHAGEAL VARICES WITHOUT BLEEDING (11) Hepatic encephalopathy Code(s): K72.90 - HEPATIC FAILURE, UNSPECIFIED WITHOUT COMA (12) Hypoxia Code(s): R09.02 - HYPOXEMIA (13) Acute on chronic respiratory failure with hypoxia and hypercapnia Code(s): J96.21 - ACUTE AND CHRONIC RESPIRATORY FAILURE WITH HYPOXIA; J96.22 - ACUTE AND CHRONIC RESPIRATORY FAILURE WITH HYPERCAPNIA Assessment/Plan IMP DYSPNEA IMPROVING CHF IMPROVING ACUTE ON CHRONIC HYPOXEMIC/HYPERCAPNEIC RESPIRATORY FAILURE IMPROVING VOLUME OVERLOAD IMPROVING ASCITES COPD O2 DEPENDENT PLEURAL EFFUSION HEPATIC ENCEPHALOPATHY DM CIRRHOSIS WITH ESOPHAGEAL VARICES S/P BANDING PANCYTOPENIA SLOWLY IMPROVING SOPHIE H/O ETOH PLAN CONTINUE DIURETICS O2 NEEDED TO MAINTAIN SATURATION NO SMOKING DC PLANNING DR DAVIDSON
--- NOTE | 2019-06-07 11:56 | PN ---
Progress Note (short form) - Note Progress Note: Fuv b/l feet hypertrophic lessions 1st met head b/l Debride lessions b/l, continue ammonium lactate . will follow
--- NOTE | 2019-06-07 12:03 | PN ---
Progress Note (short form) - Note Progress Note: Renal follow up for SOPHIE/CKD Seen and examined at the bedside awake and alert feels better making urine no cp, sob, fever or chills Vital Signs Temperature 97.4 F L 06/07/19 09:25 Pulse Rate 104 H 06/07/19 09:25 Respiratory Rate 20 06/07/19 09:25 Blood Pressure 112/62 06/07/19 09:25 O2 Sat by Pulse Oximetry (%) 95 06/06/19 10:00 Intake & Output 06/04/19 06/05/19 06/06/19 06/07/19 23:59 23:59 23:59 23:59 Intake Total 1230 1000 1150 Output Total 1030 2120 1430 675 Balance 200 -1120 -280 -675 Weight 133.81 kg 133.084 kg 132.63 kg 132.585 kg NAD awake and alert neck supple RRR CTA + abd ascities + LE edema CBC, BMP 06/06/19 05:50 06/07/19 06:00 Current Medications Albumin Human (Albumin Human 25%) 12.5 gm IVPB Q12H [facility] Stop: 06/07/19 20:46 Last Admin: 06/07/19 11:20 Dose: 12.5 gm Albuterol/Ipratropium (Duoneb -) 1 amp NEB RQ4H [facility] Last Admin: 06/07/19 07:45 Dose: 1 amp Ascorbic Acid (Vitamin C -) 500 mg PO DAILY [facility] Last Admin: 06/07/19 09:11 Dose: 500 mg Calcium Carbonate (Os-Gerhard 500mg -) 500 mg PO DAILY [facility] Last Admin: 06/07/19 09:11 Dose: 500 mg Ferrous Sulfate (Feosol -) 325 mg PO DAILY [facility] Last Admin: 06/07/19 09:11 Dose: 325 mg Insulin Aspart (Novolog Vial Sliding Scale -) 1 vial SQ ACHS [facility]; Protocol Last Admin: 06/07/19 11:22 Dose: 2 units Insulin Detemir (Levemir Vial) 25 units SQ AM [facility] Last Admin: 06/07/19 06:08 Dose: 25 units Lactic Acid (Lac-Hydrin 12) 1 applic TP BID [facility] Last Admin: 06/07/19 09:23 Dose: 1 applic Lactulose (Cephulac (Oral Use)) 10 gm PO BID [facility] Last Admin: 06/07/19 09:11 Dose: 10 gm Metolazone (Zaroxolyn -) 5 mg PO DAILY@1330 [facility] Last Admin: 06/06/19 12:48 Dose: 5 mg Metoprolol Tartrate (Lopressor -) 50 mg PO BID [facility] Last Admin: 06/07/19 09:11 Dose: 50 mg Polyethylene Glycol (Miralax (For Daily Use) -) 17 gm PO BID [facility] Last Admin: 06/07/19 09:12 Dose: Not Given Spironolactone (Aldactone -) 25 mg PO DAILY [facility] Last Admin: 06/07/19 09:11 Dose: 25 mg Tamsulosin HCl (Flomax -) 0.4 mg PO DAILY@0830 [facility] Last Admin: 06/07/19 09:10 Dose: 0.4 mg Torsemide (Demadex -) 60 mg PO DAILY [facility] 74 year old gentleman with history of Alcoholic cirrhosis, hypertension, CHF presented with shortness of breath and increased abdominal girth and admitted for worsening ascities. 1. CKD vs. SOPHIE from fluid shifts 2. Alcoholic cirrhosis with ascities 3. Anemia 4. Leukopenia/thrombocytopenia 5. CHF 6. Hypertension 7. Mild hyperkalemia Renal function stable can change diuretics to PO Torsemide continue metolazone and aldactone case discussed with primary team, for dc today and with close monitoring of renal function as outpatient Ang Sanchez DO
[2019-06-07] MEDS: METOLAZONE 2.5 MG TABLET (FP) PO SCH (13:06)
[2019-06-07] MEDS ORDERED: PT OWN MED DRAWER 7, Y5N ONE (20:19)
[2019-06-08] MEDS: ALBUTEROL SO4 2.5/IPRATROPIUM 0.5 INH SOL 3 ML VIAL.NEB. NEB SCH ×5 (03:45→20:05)
[2019-06-08] MEDS: INSULIN SLIDING SCALE (NOVOLOG) 1 VIAL SQ SCH ×4 (06:27→21:28)
[2019-06-08] MEDS: INSULIN (LEVEMIR) 100 UNITS/ML UNITS SQ SCH (06:28)
[2019-06-08 06:52] LABS: HEMATOCRIT 29.1 % (35.4-49); HEMOGLOBIN 9.8 GM/dL (11.7-16.9); MCH 34.1 pg (25.7-33.7); MCHC 33.6 g/dl (32.0-35.9); MEAN CELL VOLUME 101.4 fl (80-96); PLATELET COUNT 110 K/MM3 (134-434); RBC 2.87 M/mm3 (4.00-5.60); RDW 15.4 % (11.9-15.9); WHITE BLOOD COUNT 5.1 K/mm3 (4.0-10.0)
[2019-06-08 07:24] LABS: BLOOD UREA NITROGEN 73.9 mg/dL (7-18); CALCIUM 8.7 mg/dL (8.5-10.1); POTASSIUM 4.3 mmol/L (3.5-5.1)
[2019-06-08] MEDS: TAMSULOSIN HCL 0.4 MG CAP PO SCH (09:25)
[2019-06-08] MEDS ORDERED: TORSEMIDE 20 MG TABLET (FP) PO SCH (10:00)
[2019-06-08] MEDS: SPIRONOLACTONE 25 MG TABLET (FP) PO SCH (10:13)
[2019-06-08] MEDS: METOPROLOL TARTRATE 50 MG TABLET (FP) PO SCH ×2 (10:13→21:25)
[2019-06-08] MEDS: ASCORBIC ACID 500 MG TABLET (FP) PO SCH (10:13)
[2019-06-08] MEDS: CALCIUM (OYSTER SHELL) 500 MG TABLET (FP) PO SCH (10:13)
[2019-06-08] MEDS: LACTULOSE 20 GM/30 ML UDC (FOR ORAL USE ONLY) PO SCH ×2 (10:13→21:24)
[2019-06-08] MEDS: FERROUS SO4 325 MG TABLET (FP) PO SCH (10:13)
[2019-06-08] MEDS: AMMONIUM LACTATE 12% LOTION 225 GM BOTTLE TP SCH ×2 (10:14→21:25)
[2019-06-08] MEDS: POLYETHYLENE GLYCOL 3350 119 GM BTL PO SCH ×2 (10:14→21:25)
--- NOTE | 2019-06-08 10:36 | PN ---
Progress Note (short form) - Note Progress Note: OOB to chair. Overall breathing feels better. No CP. Some dry cough. No acute events overnight. Intake & Output 06/05/19 06/06/19 06/07/19 06/08/19 23:59 23:59 23:59 23:59 Intake Total 1000 1150 690 60 Output Total 2120 1430 1700 180 Balance -1120 -280 -1010 -120 Weight 293 lb 6.4 oz 292 lb 6.4 oz 292 lb 4.8 oz 292 lb 3.2 oz Last Vital Signs Temp Pulse Resp BP Pulse Ox 97.6 F 122 H 20 144/62 95 06/08/19 06:00 06/08/19 06:00 06/08/19 06:00 06/08/19 06:00 06/06/19 10:00 Active Medications Albuterol/Ipratropium (Duoneb -) 1 amp NEB RQ4H [facility] Last Admin: 06/08/19 07:50 Dose: 1 amp Ascorbic Acid (Vitamin C -) 500 mg PO DAILY [facility] Last Admin: 06/08/19 10:13 Dose: 500 mg Calcium Carbonate (Os-Gerhard 500mg -) 500 mg PO DAILY [facility] Last Admin: 06/08/19 10:13 Dose: 500 mg Ferrous Sulfate (Feosol -) 325 mg PO DAILY [facility] Last Admin: 06/08/19 10:13 Dose: 325 mg Insulin Aspart (Novolog Vial Sliding Scale -) 1 vial SQ ACHS [facility]; Protocol Last Admin: 06/08/19 06:27 Dose: 2 units Insulin Detemir (Levemir Vial) 25 units SQ AM [facility] Last Admin: 06/08/19 06:28 Dose: 25 units Lactic Acid (Lac-Hydrin 12) 1 applic TP BID [facility] Last Admin: 06/08/19 10:14 Dose: 1 applic Lactulose (Cephulac (Oral Use)) 10 gm PO BID [facility] Last Admin: 06/08/19 10:13 Dose: 10 gm Metolazone (Zaroxolyn -) 5 mg PO DAILY@1330 [facility] Last Admin: 06/07/19 13:06 Dose: 5 mg Metoprolol Tartrate (Lopressor -) 50 mg PO BID [facility] Last Admin: 06/08/19 10:13 Dose: 50 mg Polyethylene Glycol (Miralax (For Daily Use) -) 17 gm PO BID [facility] Last Admin: 06/08/19 10:14 Dose: Not Given Spironolactone (Aldactone -) 25 mg PO DAILY [facility] Last Admin: 06/08/19 10:13 Dose: 25 mg Tamsulosin HCl (Flomax -) 0.4 mg PO DAILY@0830 [facility] Last Admin: 06/08/19 09:25 Dose: 0.4 mg Torsemide (Demadex -) 60 mg PO DAILY [facility] Last Admin: 06/08/19 10:13 Dose: 60 mg Constitutional: Yes: NAD, Obese Eyes: Yes: WNL HENT: Yes: WNL Neck: Yes: WNL Cardiovascular: Yes: Regular Rate and Rhythm, S1, S2 Respiratory: Yes: Diminished, few scattered rhonchi Extremities: Yes: WNL Edema: Yes Labs: Laboratory Results - last 24 hr 06/07/19 06/07/19 06/07/19 11:19 16:34 20:55 WBC RBC Hgb Hct MCV MCH MCHC RDW Plt Count MPV Sodium Potassium Chloride Carbon Dioxide Anion Gap BUN Creatinine Est GFR (CKD-EPI)AfAm Est GFR (CKD-EPI)NonAf POC Glucometer 276 263 237 Random Glucose Calcium 06/08/19 06/08/19 06/08/19 05:40 05:40 05:54 WBC 5.1 RBC 2.87 L Hgb 9.8 L Hct 29.1 L MCV 101.4 H MCH 34.1 H MCHC 33.6 RDW 15.4 Plt Count 110 L MPV 10.0 Sodium 134 L Potassium 4.3 Chloride 97 L Carbon Dioxide 28 Anion Gap 8 BUN 73.9 H Creatinine 2.0 H Est GFR (CKD-EPI)AfAm 37.27 Est GFR (CKD-EPI)NonAf 32.15 POC Glucometer 237 Random Glucose 260 H Calcium 8.7 Problem List - Problems (1) SOPHIE (acute kidney injury) Code(s): N17.9 - ACUTE KIDNEY FAILURE, UNSPECIFIED (2) CHF (congestive heart failure) Code(s): I50.9 - HEART FAILURE, UNSPECIFIED Qualifiers: Heart failure type: unspecified Heart failure chronicity: acute on chronic Qualified Code(s): I50.9 - Heart failure, unspecified (3) Pancytopenia Code(s): D61.818 - OTHER PANCYTOPENIA (4) Acute renal failure (ARF) Code(s): N17.9 - ACUTE KIDNEY FAILURE, UNSPECIFIED (5) Altered mental status Code(s): R41.82 - ALTERED MENTAL STATUS, UNSPECIFIED Qualifiers: Altered mental status type: disorientation Qualified Code(s): R41.0 - Disorientation, unspecified (6) Anemia Code(s): D64.9 - ANEMIA, UNSPECIFIED (7) COPD (chronic obstructive pulmonary disease) Code(s): J44.9 - CHRONIC OBSTRUCTIVE PULMONARY DISEASE, UNSPECIFIED (8) Chronic systolic congestive heart failure Code(s): I50.22 - CHRONIC SYSTOLIC (CONGESTIVE) HEART FAILURE (9) Cirrhosis of liver Code(s): K74.60 - UNSPECIFIED CIRRHOSIS OF LIVER (10) Esophageal varices Code(s): I85.00 - ESOPHAGEAL VARICES WITHOUT BLEEDING (11) Hepatic encephalopathy Code(s): K72.90 - HEPATIC FAILURE, UNSPECIFIED WITHOUT COMA (12) Hypoxia Code(s): R09.02 - HYPOXEMIA (13) Acute on chronic respiratory failure with hypoxia and hypercapnia Code(s): J96.21 - ACUTE AND CHRONIC RESPIRATORY FAILURE WITH HYPOXIA; J96.22 - ACUTE AND CHRONIC RESPIRATORY FAILURE WITH HYPERCAPNIA Assessment/Plan IMP DYSPNEA IMPROVING CHF IMPROVING ACUTE ON CHRONIC HYPOXEMIC/HYPERCAPNEIC RESPIRATORY FAILURE IMPROVING VOLUME OVERLOAD IMPROVING ASCITES COPD O2 DEPENDENT PLEURAL EFFUSION HEPATIC ENCEPHALOPATHY DM CIRRHOSIS WITH ESOPHAGEAL VARICES S/P BANDING PANCYTOPENIA SLOWLY IMPROVING SOPHIE H/O ETOH PLAN DIURETICS O2 NEEDED TO MAINTAIN SATURATION NO SMOKING DC PLANNING DR DAVIDSON
--- NOTE | 2019-06-08 11:15 | PN ---
Progress Note, Physician Chief Complaint: SOPHIE CHF Hepatic Encephalopathy History of Present Illness: Previous notes and events reviewed awake and alert NAD complain of SOB tachycardic with HR 120s, denies chest pain - Current Medication List Current Medications: Active Medications Albuterol/Ipratropium (Duoneb -) 1 amp NEB RQ4H [facility] Last Admin: 06/08/19 07:50 Dose: 1 amp Ascorbic Acid (Vitamin C -) 500 mg PO DAILY [facility] Last Admin: 06/08/19 10:13 Dose: 500 mg Calcium Carbonate (Os-Gerhard 500mg -) 500 mg PO DAILY [facility] Last Admin: 06/08/19 10:13 Dose: 500 mg Ferrous Sulfate (Feosol -) 325 mg PO DAILY [facility] Last Admin: 06/08/19 10:13 Dose: 325 mg Insulin Aspart (Novolog Vial Sliding Scale -) 1 vial SQ [facility]; Protocol Last Admin: 06/08/19 10:53 Dose: 4 units Insulin Detemir (Levemir Vial) 25 units SQ AM [facility] Last Admin: 06/08/19 06:28 Dose: 25 units Lactic Acid (Lac-Hydrin 12) 1 applic TP BID [facility] Last Admin: 06/08/19 10:14 Dose: 1 applic Lactulose (Cephulac (Oral Use)) 10 gm PO BID [facility] Last Admin: 06/08/19 10:13 Dose: 10 gm Metoprolol Tartrate (Lopressor -) 50 mg PO BID [facility] Last Admin: 06/08/19 10:13 Dose: 50 mg Polyethylene Glycol (Miralax (For Daily Use) -) 17 gm PO BID [facility] Last Admin: 06/08/19 10:14 Dose: Not Given Spironolactone (Aldactone -) 25 mg PO DAILY [facility] Last Admin: 06/08/19 10:13 Dose: 25 mg Tamsulosin HCl (Flomax -) 0.4 mg PO DAILY@0830 [facility] Last Admin: 06/08/19 09:25 Dose: 0.4 mg Torsemide (Demadex -) 60 mg PO DAILY [facility] Last Admin: 06/08/19 10:13 Dose: 60 mg - Objective Vital Signs: Vital Signs Temperature 97.6 F 06/08/19 06:00 Pulse Rate 122 H 06/08/19 06:00 Respiratory Rate 20 06/08/19 06:00 Blood Pressure 144/62 06/08/19 06:00 O2 Sat by Pulse Oximetry (%) 95 06/06/19 10:00 Constitutional: Yes: No Distress, Calm Eyes: Yes: Conjunctiva Clear HENT: Yes: Atraumatic Cardiovascular: Yes: Tachycardia, Pulse Irregular Respiratory: Yes: Regular, Diminished, On Nasal O2 Gastrointestinal: Yes: Normal Bowel Sounds, Soft, Ascites Musculoskeletal: Yes: Muscle Weakness Extremities: Yes: WNL Edema: Yes Edema: LLE: 2+, RLE: 2+ Neurological: Yes: Alert, Pre-Existing Deficit Psychiatric: Yes: Alert Labs: CBC, BMP 06/08/19 05:40 06/08/19 05:40 INR, PTT INR 1.30 (0.83-1.09) H 05/27/19 11:05 Microbiology 05/27/19 15:40 Urine - Urine Clean Catch Urine Culture - Final NO GROWTH OBTAINED Problem List - Problems (1) SOPHIE (acute kidney injury) Assessment/Plan: -BUN/Cr 73.9/2.0 -monitor renal function -Renal on board -will hold [employer] due to increase in Cr, will re-start when Cr shows downtrend Code(s): N17.9 - ACUTE KIDNEY FAILURE, UNSPECIFIED (2) CHF (congestive heart failure) Assessment/Plan: -Cardiology consult -Tele monitoring -BNP 4235.7 -strict I&Os -daily weights -fluid restriction -CXR shows moderate bilateral pleural effusion with compressive atelectasis -EF 35-40% Code(s): I50.9 - HEART FAILURE, UNSPECIFIED Qualifiers: Heart failure type: unspecified Heart failure chronicity: acute on chronic Qualified Code(s): I50.9 - Heart failure, unspecified (3) Troponin level elevated Assessment/Plan: -Cardiology on board -tele monitoring -0.06, 0.04, 0.04 Code(s): R79.89 - OTHER SPECIFIED ABNORMAL FINDINGS OF BLOOD CHEMISTRY (4) COPD (chronic obstructive pulmonary disease) Assessment/Plan: -Pulm on board -CXR shows moderate bilateral pleural effusion with compressive atelectasis -O2 via NC -keep SpO2 >90% Code(s): J44.9 - CHRONIC OBSTRUCTIVE PULMONARY DISEASE, UNSPECIFIED (5) Hepatic encephalopathy Assessment/Plan: -Xifaxin -GI on board -Lactulose -Spirinolactone -completed Albumin 25% x 4 doses -US shows atrophic cirrhotic liver containing 3.5 x 2.6 x 2.9cm lobulated left hepatic lobe hypoechoic mass spaces for neoplasm such as HCC -AFP neg -Hematology on board Code(s): K72.90 - HEPATIC FAILURE, UNSPECIFIED WITHOUT COMA (6) Type II diabetes mellitus, uncontrolled Assessment/Plan: -BGM ACHS -ISS -Levemir -HgA1c 5.5% Code(s): E11.65 - TYPE 2 DIABETES MELLITUS WITH HYPERGLYCEMIA (7) Pancytopenia Assessment/Plan: -Hematology on board -PLT 110, WBC 5.1, RBC 2.87 Code(s): D61.818 - OTHER PANCYTOPENIA (8) Afib Assessment/Plan: -Cardiology on board -tele monitoring -unable to start AC due to liver disease -Metoprolol BID -EKG ordered for tachycardia to R/O afib with RVR -Lopressor 5mg IVP x 1 dose Code(s): I48.91 - UNSPECIFIED ATRIAL FIBRILLATION Assessment/Plan see problem list
[2019-06-08] MEDS ORDERED: METOPROLOL TARTRATE 5 MG/5 ML VIAL IVPUSH ONE (11:30)
--- NOTE | 2019-06-08 11:38 | PN ---
Progress Note (short form) - Note Progress Note: Renal follow up for SOPHIE/CKD Seen and examined at the bedside awake and alert HR noted to be elevated no chest pain per patient making urine Vital Signs Temperature 97.6 F 06/08/19 06:00 Pulse Rate 122 H 06/08/19 06:00 Respiratory Rate 20 06/08/19 06:00 Blood Pressure 144/62 06/08/19 06:00 O2 Sat by Pulse Oximetry (%) 95 06/06/19 10:00 Intake & Output 06/05/19 06/06/19 06/07/19 06/08/19 23:59 23:59 23:59 23:59 Intake Total 1000 1150 690 60 Output Total 2120 1430 1700 180 Balance -1120 -280 -1010 -120 Weight 133.084 kg 132.63 kg 132.585 kg 132.54 kg NAD awake and alert neck supple RRR CTA + abd ascities + LE edema CBC, BMP 06/08/19 05:40 06/08/19 05:40 Current Medications Albuterol/Ipratropium (Duoneb -) 1 amp NEB RQ4H [facility] Last Admin: 06/08/19 07:50 Dose: 1 amp Ascorbic Acid (Vitamin C -) 500 mg PO DAILY [facility] Last Admin: 06/08/19 10:13 Dose: 500 mg Calcium Carbonate (Os-Gerhard 500mg -) 500 mg PO DAILY [facility] Last Admin: 06/08/19 10:13 Dose: 500 mg Ferrous Sulfate (Feosol -) 325 mg PO DAILY [facility] Last Admin: 06/08/19 10:13 Dose: 325 mg Insulin Aspart (Novolog Vial Sliding Scale -) 1 vial SQ ACHS [facility]; Protocol Last Admin: 06/08/19 10:53 Dose: 4 units Insulin Detemir (Levemir Vial) 25 units SQ AM [facility] Last Admin: 06/08/19 06:28 Dose: 25 units Lactic Acid (Lac-Hydrin 12) 1 applic TP BID [facility] Last Admin: 06/08/19 10:14 Dose: 1 applic Lactulose (Cephulac (Oral Use)) 10 gm PO BID [facility] Last Admin: 06/08/19 10:13 Dose: 10 gm Metoprolol Tartrate (Lopressor -) 50 mg PO BID [facility] Last Admin: 06/08/19 10:13 Dose: 50 mg Polyethylene Glycol (Miralax (For Daily Use) -) 17 gm PO BID [facility] Last Admin: 06/08/19 10:14 Dose: Not Given Spironolactone (Aldactone -) 25 mg PO DAILY [facility] Last Admin: 06/08/19 10:13 Dose: 25 mg Tamsulosin HCl (Flomax -) 0.4 mg PO DAILY@0830 [facility] Last Admin: 06/08/19 09:25 Dose: 0.4 mg Torsemide (Demadex -) 60 mg PO DAILY [facility] Last Admin: 06/08/19 10:13 Dose: 60 mg 74 year old gentleman with history of Alcoholic cirrhosis, hypertension, CHF presented with shortness of breath and increased abdominal girth and admitted for worsening ascities. 1. CKD vs. SOPHIE from fluid shifts 2. Alcoholic cirrhosis with ascities 3. Anemia 4. Leukopenia/thrombocytopenia 5. CHF 6. Hypertension 7. Mild hyperkalemia Cr noted to rise to 2 possibly secondary to intravascular volume depletion hold Metolazone and aldactone for now Continue PO torsemide daily case discussed with primary team Trend renal function and electrolytes daily Ang Sanchez DO
--- NOTE | 2019-06-08 13:28 | PN ---
Progress Note, Physician Chief Complaint: Reconsult for new onset of tachycardia. narrow complex, regular rhythm at 125- 130 BPM. ECG interpreted as sinus tachycardia. It is likely atrial tachycardia. However, the limb lead voltage of 12 lead is very low and unable to make final diagnosis of atrial tachycardia. The patient is sitting at the time of exam. He is not in acute distress. He reports no palpitation, or dizziness. History of Present Illness: 74 y/o M with a history of NIDDM, 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 + orthopnea. Noted to havepancytopenia, ascites, coagulopathy, and elevated troponin. Echo glob HK ef 35-40 mild RVHK mod mr mod-sev TR. Had pafib. His is not on AC or antiplatlets due to coagulopathy and liver disease 06/08/19 abrupt onset of tachycardia. narrow complex, regular rhythm at 125-130 BPM. ECG interpreted as sinus tachycardia. But it is likely atrial tachycardia. However, the voltage of the repeat 12-lead ECG is very low and unable to tell the axis of P wave in the inferior lead. Received IV Metoprolol with little improvement. - Current Medication List Current Medications: Active Medications Albuterol/Ipratropium (Duoneb -) 1 amp NEB RQ4H [facility] Last Admin: 06/08/19 11:30 Dose: Not Given Ascorbic Acid (Vitamin C -) 500 mg PO DAILY [facility] [place] Last Admin: 06/08/19 10:13 Dose: 500 mg Calcium Carbonate (Os-Gerhard 500mg -) 500 mg PO DAILY [facility] [place] Last Admin: 06/08/19 10:13 Dose: 500 mg Ferrous Sulfate (Feosol -) 325 mg PO DAILY [facility] [place] Last Admin: 06/08/19 10:13 Dose: 325 mg Insulin Aspart (Novolog Vial Sliding Scale -) 1 vial SQ ACHS [facility]; Protocol Last Admin: 06/08/19 10:53 Dose: 4 units Insulin Detemir (Levemir Vial) 25 units SQ AM [facility] [place] Last Admin: 06/08/19 06:28 Dose: 25 units Lactic Acid (Lac-Hydrin 12) 1 applic TP BID [facility] [place] Last Admin: 06/08/19 10:14 Dose: 1 applic Lactulose (Cephulac (Oral Use)) 10 gm PO BID [facility] [place] Last Admin: 06/08/19 10:13 Dose: 10 gm Metoprolol Tartrate (Lopressor -) 50 mg PO BID [facility] [place] Last Admin: 06/08/19 10:13 Dose: 50 mg Polyethylene Glycol (Miralax (For Daily Use) -) 17 gm PO BID [facility] [place] Last Admin: 06/08/19 10:14 Dose: Not Given Tamsulosin HCl (Flomax -) 0.4 mg PO DAILY@0830 [facility] [place] Last Admin: 06/08/19 09:25 Dose: 0.4 mg Torsemide (Demadex -) 60 mg PO DAILY [facility] [place] Last Admin: 06/08/19 10:13 Dose: 60 mg - Objective Vital Signs: Vital Signs Temperature 97.6 F 06/08/19 06:00 Pulse Rate 130 H 06/08/19 11:29 Respiratory Rate 20 06/08/19 06:00 Blood Pressure 133/87 06/08/19 11:29 O2 Sat by Pulse Oximetry (%) 95 06/06/19 10:00 General: Well developed. Obese and chronic ill. No acute distress. Head: Normocephalic. Atraumatic, Heart: Normal S1, S2: Regular rhythm and tachycardia. Lungs: Symmetrical air entry. Bibasilar crackle. No wheezing or rhonchi. Abdomen: Distended. Soft. Bowel sound positive. Extremities: Anasarca diffuse arm and leg edema. No clubbing or cyanosis. PD 2+ , equal bilaterally. Labs: CBC, BMP 06/08/19 05:40 06/08/19 05:40 INR, PTT INR 1.30 (0.83-1.09) H 05/27/19 11:05 Assessment/Plan 74 y/o M with a history of NIDDM, 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 + orthopnea. Noted to havepancytopenia, ascites, coagulopathy, and elevated troponin. Echo glob HK ef 35-40 mild RVHK mod mr mod-sev TR. Had pafib. His is not on AC or antiplatlets due to coagulopathy and liver disease 06/08/19 abrupt onset of tachycardia. narrow complex, regular rhythm at 125-130 BPM. ECG interpreted as sinus tachycardia. But it is likely atrial tachycardia. However, the limb lead voltage of the repeat 12-lead ECG is very low and unable to tell the axis of P wave in the inferior lead. Received IV Metoprolol with little improvement. 1) Narrow complex, regular tachycardia, possible atrial tachycardia: - Please give IV digoxin 0.25 mg X1. May repeat IV digoxin 0.25 mg again in 4-6 hours. -Increase metoprol to 75 mg BID. 2) Chronic systolic CHF. IV Lasix change to torsemide 60 mg daily. Aldactone discontinued. May need increase torsemide 3) Paroxysmal atrial fibrillation: No AC or antiplatlets due to coagulopathy and liver disease. We will follow the patient with you.
[2019-06-08] MEDS ORDERED: DIGOXIN 0.25 MG TABLET (FP) PO ONE ×2 (13:45→17:00)
[2019-06-08] MEDS: NITROGLYCERIN SUBLINGUAL 1/150 0.4 MG TAB SL PRN (19:07)
[2019-06-08] MEDS ORDERED: METOPROLOL TARTRATE 25 MG TABLET (FP) PO ONE (19:25)
[2019-06-08] MEDS ORDERED: LEVALBUTEROL HCL 0.63 MG/3 ML VIAL.NEB. IH PRN (20:10)
[2019-06-08] MEDS ORDERED: ARTIFICIAL TEARS (POLYVINYL ALCOHOL) OPTH DROPS OU PRN (20:35)
--- NOTE | 2019-06-08 20:37 | HOSP ---
Subjective - Review of Symptoms Events since last encounter: Hospitalist Encounter Notified by RN, that the patient had an EKG done this evening for complaint's of CP, was asked to review. Arrived to Nursing Station- [address] [place] [address] EKG reviewed- ST, changed compared to study done on admission- SR Troponin-pending Assessed patient at bedside AAOx3. Patient's daughter was at bedside. Patient was very vague when asked about having chest pain. His daughter reports he was having chest pressure. The patient reprots relief from NTG sl, CP resolved at present. He reports no increased SOB, tolerating O2- Nasal Cannula, with intermittent coughing. PE performed see EMR Assessment: This is a 74 y/o man with a significant medical history of Alcoholic Cirrhosis, Hypertension, CHF. Admitted for Acute on Chronic Respiratory Failure, Acute on Chronic HF, Ascites. Plan: f/u Troponin Continue with current regimen Cardiovascular: Yes: Chest Pain Physical Examination Vital Signs: Vital Signs Temperature 98.3 F 06/08/19 17:23 Pulse Rate 130 H 06/08/19 19:11 Respiratory Rate 20 06/08/19 17:23 Blood Pressure 133/72 06/08/19 19:11 O2 Sat by Pulse Oximetry (%) 95 06/06/19 10:00 Constitutional: Yes: Anxious, Mild Distress, Obese Eyes: Yes: WNL, Conjunctiva Clear, EOM Intact, PERRL HENT: Yes: WNL, Atraumatic, Normocephalic Neck: Yes: WNL, Supple, Trachea Midline Cardiovascular: Yes: Tachycardia, Pulse Irregular, JVD, S1, S2 Respiratory: Yes: Cough, Diminished, On Nasal O2 Gastrointestinal: Yes: Normal Bowel Sounds, Abdomen, Obese, Ascites Edema: Yes (Anasarca) Edema: LUE: 4+, RUE: 4+, LLE: 4+, RLE: 4+ Neurological: Yes: WNL, Alert, Oriented, Cran Nerves II-XII Intact Psychiatric: Yes: WNL, Alert, Oriented Labs: CBC, BMP 06/08/19 05:40 06/08/19 05:40 Hospitalist Encounter Outcome: Troponin 0.06- at baseline Chest pain resolved P-120s-130s, irregular Addendum 02:20- notified by RN, patient reports CP worse with cough EKG, Troponin ordered EKG- no change ST 130, wide complex. Troponin 0.06 unchanged RN updated Office Agent, no change in plan Recommendations/Interventions: Wells Score 6 PERC 3 Not a candidate for CTA due to Cr 2.0 Recommend VQ Scan r/o PE
[2019-06-09] MEDS: NITROGLYCERIN SUBLINGUAL 1/150 0.4 MG TAB SL PRN (02:05)
[2019-06-09] MEDS ORDERED: ONDANSETRON 4 MG/2 ML VIAL IVPUSH ONE (02:47)
[2019-06-09] MEDS: INSULIN SLIDING SCALE (NOVOLOG) 1 VIAL SQ SCH ×4 (06:29→21:08)
[2019-06-09 06:40] LABS: HEMATOCRIT 28.7 % (35.4-49); HEMOGLOBIN 9.6 GM/dL (11.7-16.9); MCH 34.1 pg (25.7-33.7); MCHC 33.5 g/dl (32.0-35.9); MEAN CELL VOLUME 101.6 fl (80-96); MEAN PLT VOLUME 9.7 fl (7.5-11.1); PLATELET COUNT 110 K/MM3 (134-434); RBC 2.82 M/mm3 (4.00-5.60); RDW 15.1 % (11.9-15.9); WHITE BLOOD COUNT 4.6 K/mm3 (4.0-10.0)
[2019-06-09] MEDS: INSULIN (LEVEMIR) 100 UNITS/ML UNITS SQ SCH (06:44)
[2019-06-09 07:39] LABS: ALBUMIN 3.2 g/dl (3.4-5.0); BILIRUBIN,TOTAL 2.9 mg/dL (0.2-1); BLOOD UREA NITROGEN 83.6 mg/dL (7-18); POTASSIUM 4.1 mmol/L (3.5-5.1); TOT PROT 6.2 g/dl (6.4-8.2)
--- NOTE | 2019-06-09 09:07 | PN ---
Progress Note, Physician - Current Medication List Current Medications: Active Medications Artificial Tears (Artificial Tears) 1 drop OU Q12H PRN PRN Reason: DRY EYES Last Admin: 06/08/19 21:25 Dose: 1 drop Ascorbic Acid (Vitamin C -) 500 mg PO DAILY [facility] Last Admin: 06/08/19 10:13 Dose: 500 mg Calcium Carbonate (Os-Gerhard 500mg -) 500 mg PO DAILY [facility] Last Admin: 06/08/19 10:13 Dose: 500 mg Ferrous Sulfate (Feosol -) 325 mg PO DAILY [facility] Last Admin: 06/08/19 10:13 Dose: 325 mg Insulin Aspart (Novolog Vial Sliding Scale -) 1 vial SQ ACHS [facility]; Protocol Last Admin: 06/09/19 06:29 Dose: Not Given Insulin Detemir (Levemir Vial) 25 units SQ AM [facility] Last Admin: 06/09/19 06:44 Dose: 25 units Lactic Acid (Lac-Hydrin 12) 1 applic TP BID [facility] Last Admin: 06/08/19 21:25 Dose: 1 applic Lactulose (Cephulac (Oral Use)) 10 gm PO BID [facility] Last Admin: 06/08/19 21:24 Dose: 10 gm Levalbuterol HCl (Xopenex) 0.63 mg IH Q8H PRN PRN Reason: SHORT OF BREATH/WHEEZING Metoprolol Tartrate (Lopressor -) 75 mg PO BID [facility] Last Admin: 06/08/19 21:25 Dose: 75 mg Nitroglycerin (Nitrostat -) 0.4 mg SL Q5M PRN PRN Reason: FOR CHEST PAIN Last Admin: 06/09/19 02:05 Dose: 0.4 mg Polyethylene Glycol (Miralax (For Daily Use) -) 17 gm PO BID [facility] Last Admin: 06/08/19 21:25 Dose: Not Given Tamsulosin HCl (Flomax -) 0.4 mg PO DAILY@0830 [facility] Last Admin: 06/08/19 09:25 Dose: 0.4 mg Torsemide (Demadex -) 60 mg PO DAILY [facility] Last Admin: 06/08/19 10:13 Dose: 60 mg - Objective Vital Signs: Vital Signs Temperature 98.0 F 06/09/19 05:44 Pulse Rate 129 H 06/09/19 05:44 Respiratory Rate 22 H 06/09/19 05:44 Blood Pressure 155/68 06/09/19 05:44 O2 Sat by Pulse Oximetry (%) 97 06/08/19 20:34 Cardiovascular: Yes: Pulse Irregular, S1, S2 Respiratory: Yes: Diminished, On Nasal O2 Gastrointestinal: Yes: Normal Bowel Sounds, Soft Edema: Yes Labs: CBC, BMP 06/09/19 05:57 06/09/19 05:57 INR, PTT INR 1.30 (0.83-1.09) H 05/27/19 11:05 Assessment/Plan - Problems (1) SOPHIE (acute kidney injury) Assessment/Plan: -BUN/Cr 73.9/2.0 -monitor renal function -Renal on board -will hold [employer] due to increase in Cr, will re-start when Cr shows downtrend Code(s): N17.9 - ACUTE KIDNEY FAILURE, UNSPECIFIED (2) CHF (congestive heart failure) Assessment/Plan: -Cardiology consult -Tele monitoring -BNP 4235.7 -strict I&Os -daily weights -fluid restriction -CXR shows moderate bilateral pleural effusion with compressive atelectasis -EF 35-40% -Increase Toresemide to 80 Code(s): I50.9 - HEART FAILURE, UNSPECIFIED Qualifiers: Heart failure type: unspecified Heart failure chronicity: acute on chronic Qualified Code(s): I50.9 - Heart failure, unspecified (3) Troponin level elevated Assessment/Plan: -Cardiology on board -tele monitoring -0.06, 0.04, 0.04 Code(s): R79.89 - OTHER SPECIFIED ABNORMAL FINDINGS OF BLOOD CHEMISTRY (4) COPD (chronic obstructive pulmonary disease) Assessment/Plan: -Pulm on board -CXR shows moderate bilateral pleural effusion with compressive atelectasis -O2 via NC -keep SpO2 >90% Code(s): J44.9 - CHRONIC OBSTRUCTIVE PULMONARY DISEASE, UNSPECIFIED (5) Hepatic encephalopathy Assessment/Plan: -Xifaxin -GI on board -Lactulose -Spirinolactone -completed Albumin 25% x 4 doses -US shows atrophic cirrhotic liver containing 3.5 x 2.6 x 2.9cm lobulated left hepatic lobe hypoechoic mass spaces for neoplasm such as HCC -AFP neg -Hematology on board Code(s): K72.90 - HEPATIC FAILURE, UNSPECIFIED WITHOUT COMA (6) Type II diabetes mellitus, uncontrolled Assessment/Plan: -BGM ACHS -ISS -Levemir -HgA1c 5.5% Code(s): E11.65 - TYPE 2 DIABETES MELLITUS WITH HYPERGLYCEMIA (7) Pancytopenia Assessment/Plan: -Hematology on board -PLT 110, WBC 5.1, RBC 2.87 Code(s): D61.818 - OTHER PANCYTOPENIA (8) Afib Assessment/Plan: -Cardiology on board -tele monitoring -unable to start AC due to liver disease -Metoprolol BID -EKG ordered for tachycardia to R/O afib with RVR -Lopressor 5mg IVP x 1 dose Code(s): I48.91 - UNSPECIFIED ATRIAL FIBRILLATION
[2019-06-09] MEDS ORDERED: TORSEMIDE 20 MG TABLET (FP) PO SCH (09:10)
[2019-06-09] MEDS: CALCIUM (OYSTER SHELL) 500 MG TABLET (FP) PO SCH ×2 (09:37→09:44)
[2019-06-09] MEDS: LACTULOSE 20 GM/30 ML UDC (FOR ORAL USE ONLY) PO SCH ×2 (09:37→21:13)
[2019-06-09] MEDS: FERROUS SO4 325 MG TABLET (FP) PO SCH ×2 (09:37→09:43)
[2019-06-09] MEDS: POLYETHYLENE GLYCOL 3350 119 GM BTL PO SCH ×2 (09:38→21:07)
[2019-06-09] MEDS: METOPROLOL TARTRATE 50 MG TABLET (FP) PO SCH ×2 (09:38→21:13)
[2019-06-09] MEDS: TAMSULOSIN HCL 0.4 MG CAP PO SCH (09:38)
[2019-06-09] MEDS: ASCORBIC ACID 500 MG TABLET (FP) PO SCH ×2 (09:38→09:43)
[2019-06-09] MEDS: AMMONIUM LACTATE 12% LOTION 225 GM BOTTLE TP SCH ×2 (09:38→21:14)
--- NOTE | 2019-06-09 10:01 | EKG ---
Test Reason : Blood Pressure : / mmHG Vent. Rate : 130 BPM Atrial Rate : 127 BPM P-R Int : 000 ms QRS Dur : 132 ms QT Int : 338 ms P-R-T Axes : 000 152 -36 degrees QTc Int : 497 ms WIDE QRS TACHYCARDIA LIKELY SINUS TACHYCARDIA NON-SPECIFIC INTRA-VENTRICULAR CONDUCTION BLOCK ABNORMAL QRS-T ANGLE, CONSIDER PRIMARY T WAVE ABNORMALITY ABNORMAL ECG WHEN COMPARED WITH ECG OF 08-JUN-2019 18:51, NO SIGNIFICANT CHANGE WAS FOUND Confirmed by DARLING LOZAAD, HIREN ([id number]) on 06/09/2019 10:01:34 AM Referred By: KIKE DANGELO Confirmed By:HIREN HASTINGS MD
--- NOTE | 2019-06-09 10:05 | EKG ---
Test Reason : Blood Pressure : / mmHG Vent. Rate : 131 BPM Atrial Rate : 131 BPM P-R Int : 160 ms QRS Dur : 142 ms QT Int : 338 ms P-R-T Axes : 076 146 -47 degrees QTc Int : 499 ms SINUS TACHYCARDIA NON-SPECIFIC INTRA-VENTRICULAR CONDUCTION BLOCK ABNORMAL ECG WHEN COMPARED WITH ECG OF 08-JUN-2019 11:26, NO SIGNIFICANT CHANGE WAS FOUND Confirmed by HIREN HASTINGS MD ([id number]) on 06/09/2019 10:05:01 AM Referred By: Confirmed By:HIREN HASTINGS MD
--- NOTE | 2019-06-09 10:14 | EKG ---
Test Reason : Blood Pressure : / mmHG Vent. Rate : 128 BPM Atrial Rate : 128 BPM P-R Int : 152 ms QRS Dur : 136 ms QT Int : 332 ms P-R-T Axes : 078 -80 159 degrees QTc Int : 484 ms SINUS TACHYCARDIA LEFT AXIS DEVIATION NON-SPECIFIC INTRA-VENTRICULAR CONDUCTION BLOCK ABNORMAL ECG WHEN COMPARED WITH ECG OF 31-MAY-2019 14:33, SINUS RHYTHM HAS REPLACED ATRIAL FIBRILLATION VENT. RATE HAS INCREASED BY 46 BPM PATIENT SITTING IN CHAIR DURING EKG DUE TO BREATHING DIFFICULTY Confirmed by HIREN HASTINGS MD ([id number]) on 06/09/2019 10:13:54 AM Referred By: Jia ASHER Confirmed By:HIREN HASTINGS MD
--- NOTE | 2019-06-09 11:07 | PN ---
Progress Note (short form) - Note Progress Note: Resting in NAD. Noted new onset of suspected atrial tachycardia overnight. No CP. Some dry cough. Intake & Output 06/06/19 06/07/19 06/08/19 06/09/19 23:59 23:59 23:59 23:59 Intake Total 1150 690 360 Output Total 1430 1700 1160 450 Balance -280 -1010 -800 -450 Weight 292 lb 6.4 oz 292 lb 4.8 oz 292 lb 3.2 oz Last Vital Signs Temp Pulse Resp BP Pulse Ox 98.0 F 129 H 22 H 155/68 97 06/09/19 05:44 06/09/19 05:44 06/09/19 05:44 06/09/19 05:44 06/08/19 20:34 Active Medications Artificial Tears (Artificial Tears) 1 drop OU Q12H PRN PRN Reason: DRY EYES Last Admin: 06/08/19 21:25 Dose: 1 drop Ascorbic Acid (Vitamin C -) 500 mg PO DAILY [facility] Last Admin: 06/09/19 09:43 Dose: Not Given Calcium Carbonate (Os-Gerhard 500mg -) 500 mg PO DAILY [facility] Last Admin: 06/09/19 09:44 Dose: Not Given Ferrous Sulfate (Feosol -) 325 mg PO DAILY [facility] Last Admin: 06/09/19 09:43 Dose: Not Given Insulin Aspart (Novolog Vial Sliding Scale -) 1 vial SQ [facility]; Protocol Last Admin: 06/09/19 06:29 Dose: Not Given Insulin Detemir (Levemir Vial) 25 units SQ AM [facility] Last Admin: 06/09/19 06:44 Dose: 25 units Lactic Acid (Lac-Hydrin 12) 1 applic TP BID [facility] Last Admin: 06/09/19 09:38 Dose: 1 applic Lactulose (Cephulac (Oral Use)) 10 gm PO BID [facility] Last Admin: 06/09/19 09:37 Dose: 10 gm Levalbuterol HCl (Xopenex) 0.63 mg IH Q8H PRN PRN Reason: SHORT OF BREATH/WHEEZING Metoprolol Tartrate (Lopressor -) 75 mg PO BID [facility] Last Admin: 06/09/19 09:38 Dose: 75 mg Nitroglycerin (Nitrostat -) 0.4 mg SL Q5M PRN PRN Reason: FOR CHEST PAIN Last Admin: 06/09/19 02:05 Dose: 0.4 mg Polyethylene Glycol (Miralax (For Daily Use) -) 17 gm PO BID [facility] Last Admin: 06/09/19 09:38 Dose: Not Given Tamsulosin HCl (Flomax -) 0.4 mg PO DAILY@0830 [facility] Last Admin: 06/09/19 09:38 Dose: 0.4 mg Torsemide (Demadex -) 80 mg PO DAILY [facility] Last Admin: 06/09/19 09:37 Dose: 80 mg Constitutional: Yes: NAD, Obese Eyes: Yes: WNL HENT: Yes: WNL Neck: Yes: WNL Cardiovascular: Yes: S1, S2 Respiratory: Yes: Diminished, few scattered rhonchi Extremities: Yes: WNL Edema: Yes Labs: Laboratory Results - last 24 hr 06/08/19 06/08/19 06/08/19 17:21 20:35 21:28 WBC RBC Hgb Hct MCV MCH MCHC RDW Plt Count MPV Sodium Potassium Chloride Carbon Dioxide Anion Gap BUN Creatinine Est GFR (CKD-EPI)AfAm Est GFR (CKD-EPI)NonAf POC Glucometer 258 232 Random Glucose Calcium Total Bilirubin AST ALT Alkaline Phosphatase Troponin I 0.06 H Total Protein Albumin 06/09/19 06/09/19 06/09/19 02:45 05:57 05:57 WBC 4.6 RBC 2.82 L Hgb 9.6 L Hct 28.7 L MCV 101.6 H MCH 34.1 H MCHC 33.5 RDW 15.1 Plt Count 110 L MPV 9.7 Sodium 135 L Potassium 4.1 Chloride 98 Carbon Dioxide 30 Anion Gap 8 BUN 83.6 H Creatinine 2.0 H Est GFR (CKD-EPI)AfAm 37.27 Est GFR (CKD-EPI)NonAf 32.15 POC Glucometer Random Glucose 225 H Calcium 9.0 Total Bilirubin 2.9 H AST 30 ALT 34 Alkaline Phosphatase 213 H Troponin I 0.06 H Total Protein 6.2 L Albumin 3.2 L 06/09/19 06:17 WBC RBC Hgb Hct MCV MCH MCHC RDW Plt Count MPV Sodium Potassium Chloride Carbon Dioxide Anion Gap BUN Creatinine Est GFR (CKD-EPI)AfAm Est GFR (CKD-EPI)NonAf POC Glucometer 199 Random Glucose Calcium Total Bilirubin AST ALT Alkaline Phosphatase Troponin I Total Protein Albumin Problem List - Problems (1) SOPHIE (acute kidney injury) Code(s): N17.9 - ACUTE KIDNEY FAILURE, UNSPECIFIED (2) CHF (congestive heart failure) Code(s): I50.9 - HEART FAILURE, UNSPECIFIED Qualifiers: Heart failure type: unspecified Heart failure chronicity: acute on chronic Qualified Code(s): I50.9 - Heart failure, unspecified (3) Pancytopenia Code(s): D61.818 - OTHER PANCYTOPENIA (4) Acute renal failure (ARF) Code(s): N17.9 - ACUTE KIDNEY FAILURE, UNSPECIFIED (5) Altered mental status Code(s): R41.82 - ALTERED MENTAL STATUS, UNSPECIFIED Qualifiers: Altered mental status type: disorientation Qualified Code(s): R41.0 - Disorientation, unspecified (6) Anemia Code(s): D64.9 - ANEMIA, UNSPECIFIED (7) COPD (chronic obstructive pulmonary disease) Code(s): J44.9 - CHRONIC OBSTRUCTIVE PULMONARY DISEASE, UNSPECIFIED (8) Chronic systolic congestive heart failure Code(s): I50.22 - CHRONIC SYSTOLIC (CONGESTIVE) HEART FAILURE (9) Cirrhosis of liver Code(s): K74.60 - UNSPECIFIED CIRRHOSIS OF LIVER (10) Esophageal varices Code(s): I85.00 - ESOPHAGEAL VARICES WITHOUT BLEEDING (11) Hepatic encephalopathy Code(s): K72.90 - HEPATIC FAILURE, UNSPECIFIED WITHOUT COMA (12) Hypoxia Code(s): R09.02 - HYPOXEMIA (13) Acute on chronic respiratory failure with hypoxia and hypercapnia Code(s): J96.21 - ACUTE AND CHRONIC RESPIRATORY FAILURE WITH HYPOXIA; J96.22 - ACUTE AND CHRONIC RESPIRATORY FAILURE WITH HYPERCAPNIA Assessment/Plan IMP DYSPNEA IMPROVING CHF IMPROVING ACUTE ON CHRONIC HYPOXEMIC/HYPERCAPNEIC RESPIRATORY FAILURE IMPROVING VOLUME OVERLOAD IMPROVING ASCITES COPD O2 DEPENDENT PLEURAL EFFUSION HEPATIC ENCEPHALOPATHY DM CIRRHOSIS WITH ESOPHAGEAL VARICES S/P BANDING PANCYTOPENIA SLOWLY IMPROVING SOPHIE H/O ETOH PLAN CARDIAC MEDS ORDERED BY CARDIOLOGY DIURETICS O2 NEEDED TO MAINTAIN SATURATION NO SMOKING DR DAVIDSON
--- NOTE | 2019-06-09 11:46 | PN ---
Progress Note (short form) - Note Progress Note: Renal follow up for SOPHIE/CKD Seen and examined at the bedside appears very uncomfortable son at the bedside noted to have tachycardia with HR in 130's Noted to have episode of chest pain overnight CXR shows worsening congestion Vital Signs Temperature 97.6 F 06/08/19 06:00 Pulse Rate 122 H 06/08/19 06:00 Respiratory Rate 20 06/08/19 06:00 Blood Pressure 144/62 06/08/19 06:00 O2 Sat by Pulse Oximetry (%) 95 06/06/19 10:00 Intake & Output 06/05/19 06/06/19 06/07/19 06/08/19 23:59 23:59 23:59 23:59 Intake Total 1000 1150 690 60 Output Total 2120 1430 1700 180 Balance -1120 -280 -1010 -120 Weight 133.084 kg 132.63 kg 132.585 kg 132.54 kg NAD awake and alert neck supple RRR CTA + abd ascities + LE edema CBC, BMP 06/08/19 05:40 06/08/19 05:40 Current Medications Albuterol/Ipratropium (Duoneb -) 1 amp NEB RQ4H [facility] Last Admin: 06/08/19 07:50 Dose: 1 amp Ascorbic Acid (Vitamin C -) 500 mg PO DAILY [facility] Last Admin: 06/08/19 10:13 Dose: 500 mg Calcium Carbonate (Os-Gerhard 500mg -) 500 mg PO DAILY [facility] Last Admin: 06/08/19 10:13 Dose: 500 mg Ferrous Sulfate (Feosol -) 325 mg PO DAILY [facility] Last Admin: 06/08/19 10:13 Dose: 325 mg Insulin Aspart (Novolog Vial Sliding Scale -) 1 vial SQ ACHS [facility]; Protocol Last Admin: 06/08/19 10:53 Dose: 4 units Insulin Detemir (Levemir Vial) 25 units SQ AM [facility] Last Admin: 06/08/19 06:28 Dose: 25 units Lactic Acid (Lac-Hydrin 12) 1 applic TP BID [facility] Last Admin: 06/08/19 10:14 Dose: 1 applic Lactulose (Cephulac (Oral Use)) 10 gm PO BID [facility] Last Admin: 06/08/19 10:13 Dose: 10 gm Metoprolol Tartrate (Lopressor -) 50 mg PO BID [facility] Last Admin: 06/08/19 10:13 Dose: 50 mg Polyethylene Glycol (Miralax (For Daily Use) -) 17 gm PO BID [facility] Last Admin: 06/08/19 10:14 Dose: Not Given Spironolactone (Aldactone -) 25 mg PO DAILY [facility] Last Admin: 06/08/19 10:13 Dose: 25 mg Tamsulosin HCl (Flomax -) 0.4 mg PO DAILY@0830 [facility] Last Admin: 06/08/19 09:25 Dose: 0.4 mg Torsemide (Demadex -) 60 mg PO DAILY [facility] Last Admin: 06/08/19 10:13 Dose: 60 mg 74 year old gentleman with history of Alcoholic cirrhosis, hypertension, CHF presented with shortness of breath and increased abdominal girth and admitted for worsening ascities. 1. CKD vs. SOPHIE from fluid shifts 2. Alcoholic cirrhosis with ascities 3. Anemia 4. Leukopenia/thrombocytopenia 5. CHF with volume overload 6. Hypertension 7. Mild hyperkalemia Renal function unchanged from yesterday however pt clinically worsening with signs of worsening congestion and persistant tachycardia. Given XR findings of worsening effusions will convert back to IV diuretics: Will give lasix 100mg IVPB now and redose as needed to obtain good diuretic response. Will give Albumin 25g IVPB prior to lasix. Cardiology follow up for HR control. Case discussed with Pulmonary, no high suspicion of PNA. prognosis is guarded Ang Sanchez DO
[2019-06-09] MEDS ORDERED: ALBUMIN HUMAN 25% 100 ML VIAL IVPB SCH (12:30)
[2019-06-09] MEDS ORDERED: FUROSEMIDE 100 MG/10 ML INJECTABLE VIAL IVPB ONE (13:00)
--- NOTE | 2019-06-09 14:08 | PN ---
Progress Note, Physician Chief Complaint: shortness of breath History of Present Illness: 74 y/o M with a history of NIDDM, 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 + orthopnea. Noted to havepancytopenia, ascites, coagulopathy, and elevated troponin. Echo glob HK ef 35-40 mild RVHK mod mr mod-sev TR. Had pafib. His is not on AC or antiplatlets due to coagulopathy and liver disease 06/08/19 abrupt onset of tachycardia. narrow complex, regular rhythm at 125-130 BPM. ECG interpreted as sinus tachycardia. But it is likely atrial tachycardia. However, the voltage of the repeat 12-lead ECG is very low and unable to tell the axis of P wave in the inferior lead. Received IV Metoprolol with little improvement. - Current Medication List Current Medications: Active Medications Artificial Tears (Artificial Tears) 1 drop OU Q12H PRN PRN Reason: DRY EYES Last Admin: 06/08/19 21:25 Dose: 1 drop Ascorbic Acid (Vitamin C -) 500 mg PO DAILY [facility] Last Admin: 06/09/19 09:43 Dose: Not Given Calcium Carbonate (Os-Gerhard 500mg -) 500 mg PO DAILY [facility] Last Admin: 06/09/19 09:44 Dose: Not Given Ferrous Sulfate (Feosol -) 325 mg PO DAILY [facility] Last Admin: 06/09/19 09:43 Dose: Not Given Insulin Aspart (Novolog Vial Sliding Scale -) 1 vial SQ ACHS [facility]; Protocol Last Admin: 06/09/19 12:09 Dose: Not Given Insulin Detemir (Levemir Vial) 25 units SQ AM [facility] Last Admin: 06/09/19 06:44 Dose: 25 units Lactic Acid (Lac-Hydrin 12) 1 applic TP BID [facility] Last Admin: 06/09/19 09:38 Dose: 1 applic Lactulose (Cephulac (Oral Use)) 10 gm PO BID [facility] Last Admin: 06/09/19 09:37 Dose: 10 gm Levalbuterol HCl (Xopenex) 0.63 mg IH Q8H PRN PRN Reason: SHORT OF BREATH/WHEEZING Metoprolol Tartrate (Lopressor -) 75 mg PO BID [facility] Last Admin: 06/09/19 09:38 Dose: 75 mg Nitroglycerin (Nitrostat -) 0.4 mg SL Q5M PRN PRN Reason: FOR CHEST PAIN Last Admin: 06/09/19 02:05 Dose: 0.4 mg Polyethylene Glycol (Miralax (For Daily Use) -) 17 gm PO BID [facility] Last Admin: 06/09/19 09:38 Dose: Not Given Tamsulosin HCl (Flomax -) 0.4 mg PO DAILY@0830 [facility] Last Admin: 06/09/19 09:38 Dose: 0.4 mg - Objective Vital Signs: Vital Signs Temperature 98.1 F 06/09/19 14:01 Pulse Rate 129 H 06/09/19 14:01 Respiratory Rate 22 H 06/09/19 14:01 Blood Pressure 119/69 06/09/19 14:01 O2 Sat by Pulse Oximetry (%) 94 L 06/09/19 10:00 Constitutional: Yes: No Distress, Obese Eyes: Yes: WNL, EOM Intact HENT: Yes: WNL, Atraumatic, Normocephalic Neck: Yes: WNL, Supple, Trachea Midline Cardiovascular: Yes: WNL, Regular Rate and Rhythm, Tachycardia, S1, S2 Respiratory: Yes: Rales, SOB Gastrointestinal: Yes: WNL, Normal Bowel Sounds, Soft, Abdomen, Obese, Ascites ...Rectal Exam: Yes: Deferred Genitourinary: Yes: WNL Musculoskeletal: Yes: Muscle Pain Extremities: Yes: WNL Edema: LLE: 1+, RLE: 1+ Peripheral Pulses: Left Radial: 1+, Right Radial: 1+, Left Doralis Pedis: 1+, Right Dorsalis Pedis: 1+, Left Femoral: 1+, Right Femoral: 1+ Integumentary: Yes: WNL Neurological: Yes: WNL, Alert, Oriented ...Motor Strength: WNL Psychiatric: Yes: WNL, Alert, Oriented Labs: CBC, BMP 06/09/19 05:57 06/09/19 05:57 INR, PTT INR 1.30 (0.83-1.09) H 05/27/19 11:05 Assessment/Plan 74 y/o M with a history of NIDDM, 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 + orthopnea. Noted to havepancytopenia, ascites, coagulopathy, and elevated troponin. Echo glob HK ef 35-40 mild RVHK mod mr mod-sev TR. Had pafib. His is not on AC or antiplatlets due to coagulopathy and liver disease 06/08/19 abrupt onset of tachycardia. narrow complex, regular rhythm at 125-130 BPM. ECG interpreted as sinus tachycardia. But it is likely atrial tachycardia. However, the voltage of the repeat 12-lead ECG is very low and unable to tell the axis of P wave in the inferior lead. Received IV Metoprolol with little improvement. The patient's tachycardia persists. Likely atrial tachycardia. Please increase metoprolol to 100 mg 2 times a day. Continue to up titrate itas needed for rate control. Consider loading digoxin. Give intravenous Lasix twice a day while watching renal function. Salt and fluid restrictions.No fluids nor ice cubes at the bedside. Remains hemodynamically stable.
[2019-06-10] MEDS: INSULIN SLIDING SCALE (NOVOLOG) 1 VIAL SQ SCH ×4 (06:45→22:16)
[2019-06-10] MEDS: INSULIN (LEVEMIR) 100 UNITS/ML UNITS SQ SCH (06:53)
[2019-06-10 07:57] LABS: BASO % 0.6 % (0-2.0); HEMATOCRIT 29.3 % (35.4-49); HEMOGLOBIN 9.9 GM/dL (11.7-16.9); LYMPH % 13.1 % (8-40); MCHC 33.9 g/dl (32.0-35.9); MEAN CELL VOLUME 100.3 fl (80-96); MEAN PLT VOLUME 9.4 fl (7.5-11.1); MONO % 10.6 % (3.8-10.2); NEUT % 71.7 % (42.8-82.8); PLATELET COUNT 103 K/MM3 (134-434); RBC 2.92 M/mm3 (4.00-5.60); RDW 15.5 % (11.9-15.9); WHITE BLOOD COUNT 4.5 K/mm3 (4.0-10.0)
[2019-06-10 08:17] LABS: ALBUMIN 3.2 g/dl (3.4-5.0); BILIRUBIN,TOTAL 3.6 mg/dL (0.2-1); BLOOD UREA NITROGEN 86.7 mg/dL (7-18); CALCIUM 8.6 mg/dL (8.5-10.1); MAGNESIUM 2.6 mg/dL (1.8-2.4); PHOSPHOROUS 4.5 mg/dL (2.5-4.9); POTASSIUM 3.8 mmol/L (3.5-5.1); TOT PROT 6.2 g/dl (6.4-8.2)
--- NOTE | 2019-06-10 08:53 | PN ---
Progress Note, Physician - Current Medication List Current Medications: Active Medications Artificial Tears (Artificial Tears) 1 drop OU Q12H PRN PRN Reason: DRY EYES Last Admin: 06/08/19 21:25 Dose: 1 drop Ascorbic Acid (Vitamin C -) 500 mg PO DAILY [facility] Last Admin: 06/09/19 09:43 Dose: Not Given Calcium Carbonate (Os-Gerhard 500mg -) 500 mg PO DAILY [facility] Last Admin: 06/09/19 09:44 Dose: Not Given Ferrous Sulfate (Feosol -) 325 mg PO DAILY [facility] Last Admin: 06/09/19 09:43 Dose: Not Given Insulin Aspart (Novolog Vial Sliding Scale -) 1 vial SQ ACHS [facility]; Protocol Last Admin: 06/10/19 06:45 Dose: Not Given Insulin Detemir (Levemir Vial) 25 units SQ AM [facility] Last Admin: 06/10/19 06:53 Dose: 25 units Lactic Acid (Lac-Hydrin 12) 1 applic TP BID [facility] Last Admin: 06/09/19 21:14 Dose: 1 applic Lactulose (Cephulac (Oral Use)) 10 gm PO BID [facility] Last Admin: 06/09/19 21:13 Dose: 10 gm Levalbuterol HCl (Xopenex) 0.63 mg IH Q8H PRN PRN Reason: SHORT OF BREATH/WHEEZING Metoprolol Tartrate (Lopressor -) 75 mg PO BID [facility] Last Admin: 06/09/19 21:13 Dose: 75 mg Nitroglycerin (Nitrostat -) 0.4 mg SL Q5M PRN PRN Reason: FOR CHEST PAIN Last Admin: 06/09/19 02:05 Dose: 0.4 mg Polyethylene Glycol (Miralax (For Daily Use) -) 17 gm PO BID [facility] Last Admin: 06/09/19 21:07 Dose: Not Given Tamsulosin HCl (Flomax -) 0.4 mg PO DAILY@0830 [facility] Last Admin: 06/09/19 09:38 Dose: 0.4 mg - Objective Vital Signs: Vital Signs Temperature 98.2 F 06/10/19 06:00 Pulse Rate 111 H 06/10/19 06:00 Respiratory Rate 20 06/10/19 06:00 Blood Pressure 124/76 06/10/19 06:00 O2 Sat by Pulse Oximetry (%) 94 L 06/09/19 21:00 Cardiovascular: Yes: S1, S2 Gastrointestinal: Yes: Normal Bowel Sounds, Soft Edema: Yes Labs: CBC, BMP 06/10/19 06:47 06/10/19 06:47 INR, PTT INR 1.30 (0.83-1.09) H 05/27/19 11:05 Assessment/Plan - Problems (1) SOPHIE (acute kidney injury) Assessment/Plan: -monitor renal function -Renal on board Code(s): N17.9 - ACUTE KIDNEY FAILURE, UNSPECIFIED (2) CHF (congestive heart failure) Assessment/Plan: -Cardiology consult -Tele monitoring -BNP 4235.7 -strict I&Os -daily weights -fluid restriction -CXR noted -EF 35-40% -Lasix 100mg iv--consider drip--d/w renal Code(s): I50.9 - HEART FAILURE, UNSPECIFIED Qualifiers: Heart failure type: unspecified Heart failure chronicity: acute on chronic Qualified Code(s): I50.9 - Heart failure, unspecified (3) Troponin level elevated Assessment/Plan: -Cardiology on board -tele monitoring -0.06, 0.04, 0.04 Code(s): R79.89 - OTHER SPECIFIED ABNORMAL FINDINGS OF BLOOD CHEMISTRY (4) COPD (chronic obstructive pulmonary disease) Assessment/Plan: -Pulm on board -CXR shows moderate bilateral pleural effusion with compressive atelectasis -O2 via NC -keep SpO2 >90% Code(s): J44.9 - CHRONIC OBSTRUCTIVE PULMONARY DISEASE, UNSPECIFIED (5) Hepatic encephalopathy Assessment/Plan: -Xifaxin -GI on board -Lactulose -Spirinolactone -completed Albumin 25% x 4 doses -US shows atrophic cirrhotic liver containing 3.5 x 2.6 x 2.9cm lobulated left hepatic lobe hypoechoic mass spaces for neoplasm such as HCC -AFP neg -Hematology on board Code(s): K72.90 - HEPATIC FAILURE, UNSPECIFIED WITHOUT COMA (6) Type II diabetes mellitus, uncontrolled Assessment/Plan: -BGM ACHS -ISS -Levemir -HgA1c 5.5% Code(s): E11.65 - TYPE 2 DIABETES MELLITUS WITH HYPERGLYCEMIA (7) Pancytopenia Assessment/Plan: -Hematology on board -PLT 110, WBC 5.1, RBC 2.87 Code(s): D61.818 - OTHER PANCYTOPENIA (8) Afib--Tachycardia Assessment/Plan: -Cardiology on board -tele monitoring -unable to start AC due to liver disease -Metoprolol BID-Increase to 100 bid -EKG ordered for tachycardia to R/O afib with RVR -Lopressor 5mg IVP x 1 dose Code(s): I48.91 - UNSPECIFIED ATRIAL FIBRILLATION
[2019-06-10] MEDS ORDERED: FUROSEMIDE 100 MG/10 ML INJECTABLE VIAL IVPB ONE ×2 (09:15→17:00)
--- NOTE | 2019-06-10 09:44 | EKG ---
Test Reason : Blood Pressure : / mmHG Vent. Rate : 113 BPM Atrial Rate : 131 BPM P-R Int : 000 ms QRS Dur : 148 ms QT Int : 350 ms P-R-T Axes : 000 089 189 degrees QTc Int : 480 ms ATRIAL FLUTTER WITH VARIABLE A-V BLOCK NON-SPECIFIC INTRA-VENTRICULAR CONDUCTION BLOCK ABNORMAL ECG WHEN COMPARED WITH ECG OF 09-JUN-2019 02:29, WIDE QRS RHYTHM HAS REPLACED WIDE QRS TACHYCARDIA Confirmed by MD CARLITOS, OLGA ([id number]) on 06/10/2019 9:43:57 AM Referred By: Jia ASHER Confirmed By:OLGA URBINA MD
--- NOTE | 2019-06-10 10:23 | PN ---
Progress Note, Physician History of Present Illness: seen and examined today in nad. lying in bed. states he feels ok but wants to get out of bed and move around. - Current Medication List Current Medications: Active Medications Artificial Tears (Artificial Tears) 1 drop OU Q12H PRN PRN Reason: DRY EYES Last Admin: 06/08/19 21:25 Dose: 1 drop Ascorbic Acid (Vitamin C -) 500 mg PO DAILY [facility] Last Admin: 06/09/19 09:43 Dose: Not Given Calcium Carbonate (Os-Gerhard 500mg -) 500 mg PO DAILY [facility] Last Admin: 06/09/19 09:44 Dose: Not Given Ferrous Sulfate (Feosol -) 325 mg PO DAILY [facility] Last Admin: 06/09/19 09:43 Dose: Not Given Insulin Aspart (Novolog Vial Sliding Scale -) 1 vial SQ ACHS [facility]; Protocol Last Admin: 06/10/19 06:45 Dose: Not Given Insulin Detemir (Levemir Vial) 25 units SQ AM [facility] Last Admin: 06/10/19 06:53 Dose: 25 units Lactic Acid (Lac-Hydrin 12) 1 applic TP BID [facility] Last Admin: 06/09/19 21:14 Dose: 1 applic Lactulose (Cephulac (Oral Use)) 10 gm PO BID [facility] Last Admin: 06/09/19 21:13 Dose: 10 gm Levalbuterol HCl (Xopenex) 0.63 mg IH Q8H PRN PRN Reason: SHORT OF BREATH/WHEEZING Metoprolol Tartrate (Lopressor -) 100 mg PO BID [facility] Nitroglycerin (Nitrostat -) 0.4 mg SL Q5M PRN PRN Reason: FOR CHEST PAIN Last Admin: 06/09/19 02:05 Dose: 0.4 mg Polyethylene Glycol (Miralax (For Daily Use) -) 17 gm PO BID [facility] Last Admin: 06/09/19 21:07 Dose: Not Given Tamsulosin HCl (Flomax -) 0.4 mg PO DAILY@0830 [facility] Last Admin: 06/09/19 09:38 Dose: 0.4 mg - Objective Vital Signs: Vital Signs Temperature 98.2 F 06/10/19 06:00 Pulse Rate 111 H 06/10/19 06:00 Respiratory Rate 20 06/10/19 06:00 Blood Pressure 124/76 06/10/19 06:00 O2 Sat by Pulse Oximetry (%) 94 L 06/09/19 21:00 Constitutional: Yes: No Distress, Calm Eyes: Yes: Conjunctiva Clear, EOM Intact HENT: Yes: Atraumatic, Normocephalic Neck: Yes: Supple, Trachea Midline Cardiovascular: Yes: Tachycardia, S1, S2. No: Regular Rate and Rhythm, Bradycardia, Pulse Irregular, Bruit, JVD, Gallop, Murmur, Rub, S3, S4, Varicosities Respiratory: Yes: Regular, Diminished, On Nasal O2, Rales, Rhonchi. No: SOB, Wheezes Gastrointestinal: Yes: Normal Bowel Sounds, Soft. No: Distention, Tenderness Edema: Yes Edema: LLE: Trace, RLE: Trace Peripheral Pulses WNL: Yes Peripheral Pulses: Left Doralis Pedis: 2+, Right Dorsalis Pedis: 2+ Neurological: Yes: Alert, Oriented Psychiatric: Yes: Alert, Oriented Labs: CBC, BMP 06/10/19 06:47 06/10/19 06:47 INR, PTT INR 1.30 (0.83-1.09) H 05/27/19 11:05 - ....Imaging Chest X-ray: Report Reviewed, Image Reviewed EKG: Report Reviewed, Image Reviewed Other: Report Reviewed, Image Reviewed (tele-AT vs Aflutter with periods of rvr) Assessment/Plan 74 y/o M with a history of NIDDM, 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 + orthopnea. Noted to have pancytopenia, ascites, coagulopathy, and elevated troponin. Echo 05/29/19 glob HK ef 35-40 mild RVHK mod mr mod-sev TR. Had pafib. His is not on AC or antiplatlets due to coagulopathy and liver disease 06/08/19 abrupt onset of tachycardia. narrow complex, regular rhythm at 125-130 BPM. ECG interpreted as sinus tachycardia. But it is likely atrial tachycardia. However, the voltage of the repeat 12-lead ECG is very low and unable to tell the axis of P wave in the inferior lead. Received IV Metoprolol with little improvement. Tachycardia-Pafib, Atrial tachycardia vs aflutter -HR still above goal -cont Metoprolol 100mg bid and uptitrate as needed -can consider Digoxin loading with close monitoring due to CKD Acute on chronic systolic CHF -volume overloaded -receiving IV lasix with albumin -monitor strict i/os, daily weights, bun/creat, electrolytes and replete as needed
[2019-06-10] MEDS: CALCIUM (OYSTER SHELL) 500 MG TABLET (FP) PO SCH (10:32)
[2019-06-10] MEDS: TAMSULOSIN HCL 0.4 MG CAP PO SCH (10:32)
[2019-06-10] MEDS: FERROUS SO4 325 MG TABLET (FP) PO SCH (10:32)
[2019-06-10] MEDS: ASCORBIC ACID 500 MG TABLET (FP) PO SCH (10:33)
[2019-06-10] MEDS: LACTULOSE 20 GM/30 ML UDC (FOR ORAL USE ONLY) PO SCH ×2 (10:33→22:16)
[2019-06-10] MEDS: METOPROLOL TARTRATE 50 MG TABLET (FP) PO SCH ×2 (10:33→22:16)
[2019-06-10] MEDS: POLYETHYLENE GLYCOL 3350 119 GM BTL PO SCH ×2 (10:43→22:17)
[2019-06-10] MEDS: AMMONIUM LACTATE 12% LOTION 225 GM BOTTLE TP SCH ×2 (10:43→22:15)
--- NOTE | 2019-06-10 12:41 | PN ---
Progress Note, Physician History of Present Illness: pulmonary alert,comfortable,-resp distress - Current Medication List Current Medications: Active Medications Artificial Tears (Artificial Tears) 1 drop OU Q12H PRN PRN Reason: DRY EYES Last Admin: 06/08/19 21:25 Dose: 1 drop Ascorbic Acid (Vitamin C -) 500 mg PO DAILY [facility] Last Admin: 06/10/19 10:33 Dose: 500 mg Calcium Carbonate (Os-Gerhard 500mg -) 500 mg PO DAILY [facility] Last Admin: 06/10/19 10:32 Dose: 500 mg Ferrous Sulfate (Feosol -) 325 mg PO DAILY [facility] Last Admin: 06/10/19 10:32 Dose: 325 mg Insulin Aspart (Novolog Vial Sliding Scale -) 1 vial SQ ACHS [facility]; Protocol Last Admin: 06/10/19 11:33 Dose: 2 units Insulin Detemir (Levemir Vial) 25 units SQ AM [facility] Last Admin: 06/10/19 06:53 Dose: 25 units Lactic Acid (Lac-Hydrin 12) 1 applic TP BID [facility] Last Admin: 06/10/19 10:43 Dose: 1 applic Lactulose (Cephulac (Oral Use)) 10 gm PO BID [facility] Last Admin: 06/10/19 10:33 Dose: 10 gm Levalbuterol HCl (Xopenex) 0.63 mg IH Q8H PRN PRN Reason: SHORT OF BREATH/WHEEZING Metoprolol Tartrate (Lopressor -) 100 mg PO BID [facility] Last Admin: 06/10/19 10:33 Dose: 100 mg Nitroglycerin (Nitrostat -) 0.4 mg SL Q5M PRN PRN Reason: FOR CHEST PAIN Last Admin: 06/09/19 02:05 Dose: 0.4 mg Polyethylene Glycol (Miralax (For Daily Use) -) 17 gm PO BID [facility] Last Admin: 06/10/19 10:43 Dose: Not Given Tamsulosin HCl (Flomax -) 0.4 mg PO DAILY@0830 [facility] Last Admin: 06/10/19 10:32 Dose: 0.4 mg - Objective Vital Signs: Vital Signs Temperature 97.4 F L 06/10/19 10:00 Pulse Rate 116 H 06/10/19 10:00 Respiratory Rate 20 06/10/19 10:00 Blood Pressure 144/66 06/10/19 10:00 O2 Sat by Pulse Oximetry (%) 94 L 06/09/19 21:00 Constitutional: Yes: Well Nourished, Calm Eyes: Yes: WNL HENT: Yes: WNL Neck: Yes: WNL Cardiovascular: Yes: Regular Rate and Rhythm, S1, S2 Respiratory: Yes: Diminished Gastrointestinal: Yes: Normal Bowel Sounds, Abdomen, Obese Extremities: Yes: WNL Edema: Yes Labs: CBC, BMP 06/10/19 06:47 06/10/19 06:47 INR, PTT INR 1.30 (0.83-1.09) H 05/27/19 11:05 Problem List - Problems (1) SOPHIE (acute kidney injury) Code(s): N17.9 - ACUTE KIDNEY FAILURE, UNSPECIFIED (2) CHF (congestive heart failure) Code(s): I50.9 - HEART FAILURE, UNSPECIFIED Qualifiers: Heart failure type: unspecified Heart failure chronicity: acute on chronic Qualified Code(s): I50.9 - Heart failure, unspecified (3) Pancytopenia Code(s): D61.818 - OTHER PANCYTOPENIA (4) Acute renal failure (ARF) Code(s): N17.9 - ACUTE KIDNEY FAILURE, UNSPECIFIED (5) Altered mental status Code(s): R41.82 - ALTERED MENTAL STATUS, UNSPECIFIED Qualifiers: Altered mental status type: disorientation Qualified Code(s): R41.0 - Disorientation, unspecified (6) Anemia Code(s): D64.9 - ANEMIA, UNSPECIFIED (7) COPD (chronic obstructive pulmonary disease) Code(s): J44.9 - CHRONIC OBSTRUCTIVE PULMONARY DISEASE, UNSPECIFIED (8) Chronic systolic congestive heart failure Code(s): I50.22 - CHRONIC SYSTOLIC (CONGESTIVE) HEART FAILURE (9) Cirrhosis of liver Code(s): K74.60 - UNSPECIFIED CIRRHOSIS OF LIVER (10) Esophageal varices Code(s): I85.00 - ESOPHAGEAL VARICES WITHOUT BLEEDING (11) Hepatic encephalopathy Code(s): K72.90 - HEPATIC FAILURE, UNSPECIFIED WITHOUT COMA (12) Hypoxia Code(s): R09.02 - HYPOXEMIA (13) Acute on chronic respiratory failure with hypoxia and hypercapnia Code(s): J96.21 - ACUTE AND CHRONIC RESPIRATORY FAILURE WITH HYPOXIA; J96.22 - ACUTE AND CHRONIC RESPIRATORY FAILURE WITH HYPERCAPNIA Assessment/Plan CONSULTATION DICTATED 05/08/19 IMP DYSPNEA IMPROVING CHF IMPROVING ACUTE ON CHRONIC HYPOXEMIC/HYPERCAPNEIC RESPIRATORY FAILURE IMPROVED VOLUME OVERLOAD IMPROVING ASCITES COPD O2 DEPENDENT PLEURAL EFFUSION HEPATIC ENCEPHALOPATHY DM CIRRHOSIS WITH ESOPHAGEAL VARICES S/P BANDING PANCYTOPENIA SLOWLY IMPROVING SOPHIE H/O ETOH PLAN DIURETICS CARDIAC MEDS PER CARDIOLOGY O2 DAILY WTS MONITOR LYTES,RENAL FUNCTION MONITOR H+H DR COLLAZO Problem List - Problems (1) SOPHIE (acute kidney injury) Code(s): N17.9 - ACUTE KIDNEY FAILURE, UNSPECIFIED (2) CHF (congestive heart failure) Code(s): I50.9 - HEART FAILURE, UNSPECIFIED Qualifiers: Heart failure type: unspecified Heart failure chronicity: acute on chronic Qualified Code(s): I50.9 - Heart failure, unspecified (3) Pancytopenia Code(s): D61.818 - OTHER PANCYTOPENIA (4) Acute renal failure (ARF) Code(s): N17.9 - ACUTE KIDNEY FAILURE, UNSPECIFIED (5) Altered mental status Code(s): R41.82 - ALTERED MENTAL STATUS, UNSPECIFIED Qualifiers: Altered mental status type: disorientation Qualified Code(s): R41.0 - Disorientation, unspecified (6) Anemia Code(s): D64.9 - ANEMIA, UNSPECIFIED (7) COPD (chronic obstructive pulmonary disease) Code(s): J44.9 - CHRONIC OBSTRUCTIVE PULMONARY DISEASE, UNSPECIFIED (8) Chronic systolic congestive heart failure Code(s): I50.22 - CHRONIC SYSTOLIC (CONGESTIVE) HEART FAILURE (9) Cirrhosis of liver Code(s): K74.60 - UNSPECIFIED CIRRHOSIS OF LIVER (10) Esophageal varices Code(s): I85.00 - ESOPHAGEAL VARICES WITHOUT BLEEDING (11) Hepatic encephalopathy Code(s): K72.90 - HEPATIC FAILURE, UNSPECIFIED WITHOUT COMA (12) Hypoxia Code(s): R09.02 - HYPOXEMIA (13) Acute on chronic respiratory failure with hypoxia and hypercapnia Code(s): J96.21 - ACUTE AND CHRONIC RESPIRATORY FAILURE WITH HYPOXIA; J96.22 - ACUTE AND CHRONIC RESPIRATORY FAILURE WITH HYPERCAPNIA
--- NOTE | 2019-06-10 15:43 | PN ---
Progress Note (short form) - Note Progress Note: Renal follow up for SOPHIE/CKD Seen and examined at the bedside awake and alert Feels better then yesterday making urine sob improved Vital Signs Temperature 97.2 F L 06/10/19 14:00 Pulse Rate 131 H 06/10/19 14:00 Respiratory Rate 20 06/10/19 14:00 Blood Pressure 130/64 06/10/19 14:00 O2 Sat by Pulse Oximetry (%) 100 06/10/19 09:00 Intake & Output 06/07/19 06/08/19 06/09/19 06/10/19 23:59 23:59 23:59 23:59 Intake Total 690 360 130 410 Output Total 1700 1160 450 Balance -1010 -800 -320 410 Weight 132.585 kg 132.54 kg NAD awake and alert neck supple RRR Dec BS + abd ascities + LE edema CBC, BMP 06/10/19 06:47 06/10/19 06:47 Current Medications Artificial Tears (Artificial Tears) 1 drop OU Q12H PRN PRN Reason: DRY EYES Last Admin: 06/08/19 21:25 Dose: 1 drop Ascorbic Acid (Vitamin C -) 500 mg PO DAILY [facility] Last Admin: 06/10/19 10:33 Dose: 500 mg Calcium Carbonate (Os-Gerhard 500mg -) 500 mg PO DAILY [facility] Last Admin: 06/10/19 10:32 Dose: 500 mg Ferrous Sulfate (Feosol -) 325 mg PO DAILY [facility] Last Admin: 06/10/19 10:32 Dose: 325 mg Insulin Aspart (Novolog Vial Sliding Scale -) 1 vial SQ ACHS [facility]; Protocol Last Admin: 06/10/19 11:33 Dose: 2 units Insulin Detemir (Levemir Vial) 25 units SQ AM [facility] Last Admin: 06/10/19 06:53 Dose: 25 units Lactic Acid (Lac-Hydrin 12) 1 applic TP BID [facility] Last Admin: 06/10/19 10:43 Dose: 1 applic Lactulose (Cephulac (Oral Use)) 10 gm PO BID [facility] Last Admin: 06/10/19 10:33 Dose: 10 gm Levalbuterol HCl (Xopenex) 0.63 mg IH Q8H PRN PRN Reason: SHORT OF BREATH/WHEEZING Metoprolol Tartrate (Lopressor -) 100 mg PO BID [facility] Last Admin: 06/10/19 10:33 Dose: 100 mg Nitroglycerin (Nitrostat -) 0.4 mg SL Q5M PRN PRN Reason: FOR CHEST PAIN Last Admin: 06/09/19 02:05 Dose: 0.4 mg Polyethylene Glycol (Miralax (For Daily Use) -) 17 gm PO BID [facility] Last Admin: 06/10/19 10:43 Dose: Not Given Tamsulosin HCl (Flomax -) 0.4 mg PO DAILY@0830 [facility] Last Admin: 06/10/19 10:32 Dose: 0.4 mg 74 year old gentleman with history of Alcoholic cirrhosis, hypertension, CHF presented with shortness of breath and increased abdominal girth and admitted for worsening ascities. 1. CKD vs. SOPHIE from fluid shifts 2. Alcoholic cirrhosis with ascities 3. Anemia 4. Leukopenia/thrombocytopenia 5. CHF with volume overload 6. Hypertension 7. Mild hyperkalemia Renal function stable,no significant electrolyte or acid/base disturbance Continue Lasix IV BID, will order additonal Lasix 100mg IV this evening then plan on 6am and 2pm dosing Will give additional Albumin today prior to Lasix Cardiology follow up for HR control. prognosis is guarded Ang Sanchez DO
[2019-06-10] MEDS ORDERED: ALBUMIN HUMAN 25% 100 ML VIAL IVPB ONE (17:00)
[2019-06-10] MEDS ORDERED: FUROSEMIDE 40 MG/4 ML INJECTABLE VIAL IVPB ONE (18:00)
[2019-06-11] MEDS: FUROSEMIDE 100 MG/10 ML INJECTABLE VIAL IVPB SCH ×2 (05:05→14:25)
[2019-06-11] MEDS: INSULIN SLIDING SCALE (NOVOLOG) 1 VIAL SQ SCH ×4 (06:45→22:30)
[2019-06-11] MEDS: INSULIN (LEVEMIR) 100 UNITS/ML UNITS SQ SCH (06:45)
[2019-06-11 06:59] LABS: BASO % 0.4 % (0-2.0); EOS % 4.4 % (0-4.5); HEMATOCRIT 29.7 % (35.4-49); HEMOGLOBIN 10.3 GM/dL (11.7-16.9); LYMPH % 14.9 % (8-40); MCH 34.8 pg (25.7-33.7); MCHC 34.6 g/dl (32.0-35.9); MEAN CELL VOLUME 100.5 fl (80-96); MEAN PLT VOLUME 8.9 fl (7.5-11.1); MONO % 13.1 % (3.8-10.2); NEUT % 67.2 % (42.8-82.8); PLATELET COUNT 91 K/MM3 (134-434); RBC 2.95 M/mm3 (4.00-5.60); RDW 15.5 % (11.9-15.9); WHITE BLOOD COUNT 4.6 K/mm3 (4.0-10.0)
[2019-06-11 07:35] LABS: ALBUMIN 3.3 g/dl (3.4-5.0); CALCIUM 8.9 mg/dL (8.5-10.1); CREATININE 2.1 mg/dL (0.55-1.3); MAGNESIUM 2.5 mg/dL (1.8-2.4); PHOSPHOROUS 4.3 mg/dL (2.5-4.9); POTASSIUM 3.5 mmol/L (3.5-5.1); TOT PROT 6.2 g/dl (6.4-8.2)
--- NOTE | 2019-06-11 08:17 | PN.GI ---
GI Progress Note Subjective: Patient denies nausea, vomiting, abdominal pain, diarrhea, constipation, melena , or rectal bleeding. LFTs noted with upward trend and elevated Ammonia level. - Objective Vital Signs: Vital Signs Temperature 97.5 F L 06/11/19 06:00 Pulse Rate 86 06/11/19 06:00 Respiratory Rate 18 06/11/19 06:00 Blood Pressure 107/40 L 06/11/19 06:00 O2 Sat by Pulse Oximetry (%) 100 06/10/19 21:00 Constitutional: No Distress, Calm Eyes: Yes: Conjunctiva Clear HENT: Yes: Atraumatic Cardiovascular: Yes: Pulse Irregular Respiratory: Yes: Regular, Diminished, On Nasal O2 Gastrointestinal Inspection: Yes: Ascites. No: WNL, Distention, Hernia, Scars, Other ...Auscultate: Yes: Normoactive Bowel Sounds. No: Hyperactive Bowel Sounds, Hypoactive Bowel Sounds, No Bowel Sounds, Other ...Palpate: Yes: Soft. No: Firm/Rigid, Guarding, Hepatomegaly, Mass, Pulsatile Mass, Splenomegaly, Tenderness, Tenderness, Epigastium, Tenderness, Rebound, Other ...Percussion: Yes: Tympanitic. No: Dullness, Fluid Wave, Other Neurological: Yes: Alert Psychiatric: Yes: Alert Labs: CBC, BMP 06/11/19 06:30 06/11/19 06:30 INR, PTT INR 1.30 (0.83-1.09) H 05/27/19 11:05 Active Medications Generic Name Dose Route Start Last Admin Trade Name Freq PRN Reason Stop Dose Admin Artificial Tears 1 drop 06/08/19 20:35 06/08/19 21:25 Artificial Tears OU 1 drop Q12H PRN Administration DRY EYES Ascorbic Acid 500 mg 05/28/19 10:00 06/10/19 10:33 Vitamin C - PO 500 mg DAILY MY[facility] Administration Calcium Carbonate 500 mg 05/28/19 10:00 06/10/19 10:32 Os-Gerhard 500mg - PO 500 mg DAILY MYNOR Administration Ferrous Sulfate 325 mg 05/28/19 10:00 06/10/19 10:32 Feosol - PO 325 mg DAILY MY[facility] Administration Furosemide 100 mg 06/11/19 06:00 06/11/19 05:05 Lasix Injection - IVPB 100 mg BID@0600,1400 MY[facility] Administration Insulin Aspart 1 vial 05/27/19 17:31 06/11/19 06:45 Novolog Vial Sliding Scale - SQ Not Given ACHS [facility] Protocol Insulin Detemir 25 units 05/28/19 07:00 06/11/19 06:45 Levemir Vial SQ 25 units AM MYNOR Administration Lactic Acid 1 applic 06/02/19 16:52 06/10/19 22:15 Lac-Hydrin 12 TP 1 applic BID MYNOR Administration Lactulose 20 gm 06/11/19 14:00 Cephulac (Oral Use) PO TID MYNOR Levalbuterol HCl 0.63 mg 06/08/19 20:12 Xopenex IH Q8H PRN SHORT OF BREATH/WHEEZING Metoprolol Tartrate 100 mg 06/10/19 10:00 06/10/19 22:16 Lopressor - PO 100 mg BID MY[facility] Administration Nitroglycerin 0.4 mg 06/08/19 18:49 06/09/19 02:05 Nitrostat - SL 0.4 mg Q5M PRN Administration FOR CHEST PAIN Polyethylene Glycol 17 gm 05/28/19 22:00 06/10/19 22:17 Miralax (For Daily Use) - PO 17 grams BID MY[facility] Administration Tamsulosin HCl 0.4 mg 05/28/19 08:30 06/10/19 10:32 Flomax - PO 0.4 mg DAILY@0830 MY[facility] Administration Problem List - Problems (1) Cirrhosis of liver Assessment/Plan: >Lactulose, Nadolol, Spironolactone >Abdominal US reviewed >AFP neg >Abdominal MRI without contrast >Furosemide >monitor LFTs >DAILY WEIGHTS >Metozalone was added to regimen >Follow renal suggestion in regards to ascites/fluid management and recall as needed >if family is wishing for aggressive treatment would consider transfer to tertiary center given multiple co-morbidities Code(s): K74.60 - UNSPECIFIED CIRRHOSIS OF LIVER (2) Hepatic encephalopathy Assessment/Plan: >Xifaxin, Lactulose >daily weights Code(s): K72.90 - HEPATIC FAILURE, UNSPECIFIED WITHOUT COMA
--- NOTE | 2019-06-11 08:46 | PN ---
Progress Note, Physician - Current Medication List Current Medications: Active Medications Artificial Tears (Artificial Tears) 1 drop OU Q12H PRN PRN Reason: DRY EYES Last Admin: 06/08/19 21:25 Dose: 1 drop Ascorbic Acid (Vitamin C -) 500 mg PO DAILY [facility] Last Admin: 06/10/19 10:33 Dose: 500 mg Calcium Carbonate (Os-Gerhard 500mg -) 500 mg PO DAILY [facility] Last Admin: 06/10/19 10:32 Dose: 500 mg Ferrous Sulfate (Feosol -) 325 mg PO DAILY [facility] Last Admin: 06/10/19 10:32 Dose: 325 mg Furosemide (Lasix Injection -) 100 mg IVPB BID@0600,1400 [facility] Last Admin: 06/11/19 05:05 Dose: 100 mg Insulin Aspart (Novolog Vial Sliding Scale -) 1 vial SQ ACHS [facility]; Protocol Last Admin: 06/11/19 06:45 Dose: Not Given Insulin Detemir (Levemir Vial) 25 units SQ AM [facility] Last Admin: 06/11/19 06:45 Dose: 25 units Lactic Acid (Lac-Hydrin 12) 1 applic TP BID [facility] Last Admin: 06/10/19 22:15 Dose: 1 applic Lactulose (Cephulac (Oral Use)) 20 gm PO TID [facility] Levalbuterol HCl (Xopenex) 0.63 mg IH Q8H PRN PRN Reason: SHORT OF BREATH/WHEEZING Metoprolol Tartrate (Lopressor -) 100 mg PO BID [facility] Last Admin: 06/10/19 22:16 Dose: 100 mg Nitroglycerin (Nitrostat -) 0.4 mg SL Q5M PRN PRN Reason: FOR CHEST PAIN Last Admin: 06/09/19 02:05 Dose: 0.4 mg Polyethylene Glycol (Miralax (For Daily Use) -) 17 gm PO BID [facility] Last Admin: 06/10/19 22:17 Dose: 17 grams Tamsulosin HCl (Flomax -) 0.4 mg PO DAILY@0830 [facility] Last Admin: 06/10/19 10:32 Dose: 0.4 mg - Objective Vital Signs: Vital Signs Temperature 97.8 F 06/11/19 08:24 Pulse Rate 86 06/11/19 08:24 Respiratory Rate 20 06/11/19 08:24 Blood Pressure 127/66 06/11/19 08:24 O2 Sat by Pulse Oximetry (%) 94 L 06/11/19 08:24 Cardiovascular: Yes: S1, S2 Respiratory: Yes: CTA Bilaterally, On Nasal O2 Gastrointestinal: Yes: Normal Bowel Sounds, Soft Edema: Yes Labs: CBC, BMP 06/11/19 06:30 06/11/19 06:30 INR, PTT INR 1.30 (0.83-1.09) H 05/27/19 11:05 Assessment/Plan - Problems (1) SOPHIE (acute kidney injury) Assessment/Plan: -monitor renal function -Renal on board Code(s): N17.9 - ACUTE KIDNEY FAILURE, UNSPECIFIED (2) CHF (congestive heart failure) Assessment/Plan: -Cardiology consult -Tele monitoring -BNP 4235.7 -strict I&Os -daily weights -fluid restriction -CXR noted -EF 35-40% -Lasix 100mg iv bid--consider drip--d/w renal -Cardio follow up-Consider transfer Code(s): I50.9 - HEART FAILURE, UNSPECIFIED Qualifiers: Heart failure type: unspecified Heart failure chronicity: acute on chronic Qualified Code(s): I50.9 - Heart failure, unspecified (3) Troponin level elevated Assessment/Plan: -Cardiology on board -tele monitoring -0.06, 0.04, 0.04 Code(s): R79.89 - OTHER SPECIFIED ABNORMAL FINDINGS OF BLOOD CHEMISTRY (4) COPD (chronic obstructive pulmonary disease) Assessment/Plan: -Pulm on board -CXR shows moderate bilateral pleural effusion with compressive atelectasis -O2 via NC -keep SpO2 >90% Code(s): J44.9 - CHRONIC OBSTRUCTIVE PULMONARY DISEASE, UNSPECIFIED (5) Hepatic encephalopathy Assessment/Plan: -Xifaxin -GI on board -Lactulose increase to 20 tid -Spirinolactone -completed Albumin 25% x 4 doses -US shows atrophic cirrhotic liver containing 3.5 x 2.6 x 2.9cm lobulated left hepatic lobe hypoechoic mass spaces for neoplasm such as HCC -AFP neg -Hematology on board Code(s): K72.90 - HEPATIC FAILURE, UNSPECIFIED WITHOUT COMA (6) Type II diabetes mellitus, uncontrolled Assessment/Plan: -BGM ACHS -ISS -Levemir -HgA1c 5.5% Code(s): E11.65 - TYPE 2 DIABETES MELLITUS WITH HYPERGLYCEMIA (7) Pancytopenia Assessment/Plan: -Hematology on board -PLT 110, WBC 5.1, RBC 2.87 Code(s): D61.818 - OTHER PANCYTOPENIA (8) Afib--Tachycardia Assessment/Plan: -Cardiology on board -tele monitoring -unable to start AC due to liver disease -Metoprolol BID-Increased to 100 bid -EKG ordered for tachycardia to R/O afib with RVR -Lopressor 5mg IVP x 1 dose Code(s): I48.91 - UNSPECIFIED ATRIAL FIBRILLATION
[2019-06-11] MEDS: TAMSULOSIN HCL 0.4 MG CAP PO SCH (09:25)
[2019-06-11] MEDS: CALCIUM (OYSTER SHELL) 500 MG TABLET (FP) PO SCH (09:25)
[2019-06-11] MEDS: POLYETHYLENE GLYCOL 3350 119 GM BTL PO SCH ×2 (09:25→22:30)
[2019-06-11] MEDS: METOPROLOL TARTRATE 50 MG TABLET (FP) PO SCH ×2 (09:26→22:30)
[2019-06-11] MEDS: FERROUS SO4 325 MG TABLET (FP) PO SCH (09:26)
[2019-06-11] MEDS: ASCORBIC ACID 500 MG TABLET (FP) PO SCH (09:26)
[2019-06-11] MEDS: AMMONIUM LACTATE 12% LOTION 225 GM BOTTLE TP SCH ×2 (09:27→22:30)
--- NOTE | 2019-06-11 11:19 | PN ---
Progress Note, Physician History of Present Illness: pulmonary awake,-resp distress,mild congestion - Current Medication List Current Medications: Active Medications Artificial Tears (Artificial Tears) 1 drop OU Q12H PRN PRN Reason: DRY EYES Last Admin: 06/08/19 21:25 Dose: 1 drop Ascorbic Acid (Vitamin C -) 500 mg PO DAILY [facility] Last Admin: 06/11/19 09:26 Dose: 500 mg Calcium Carbonate (Os-Gerhard 500mg -) 500 mg PO DAILY [facility] Last Admin: 06/11/19 09:25 Dose: 500 mg Ferrous Sulfate (Feosol -) 325 mg PO DAILY [facility] Last Admin: 06/11/19 09:26 Dose: 325 mg Furosemide (Lasix Injection -) 100 mg IVPB BID@0600,1400 [facility] Last Admin: 06/11/19 05:05 Dose: 100 mg Insulin Aspart (Novolog Vial Sliding Scale -) 1 vial SQ [facility]; Protocol Last Admin: 06/11/19 06:45 Dose: Not Given Insulin Detemir (Levemir Vial) 25 units SQ AM [facility] Last Admin: 06/11/19 06:45 Dose: 25 units Lactic Acid (Lac-Hydrin 12) 1 applic TP BID [facility] Last Admin: 06/11/19 09:27 Dose: 1 applic Lactulose (Cephulac (Oral Use)) 20 gm PO TID [facility] Levalbuterol HCl (Xopenex) 0.63 mg IH Q8H PRN PRN Reason: SHORT OF BREATH/WHEEZING Metoprolol Tartrate (Lopressor -) 100 mg PO BID [facility] Last Admin: 06/11/19 09:26 Dose: 100 mg Nitroglycerin (Nitrostat -) 0.4 mg SL Q5M PRN PRN Reason: FOR CHEST PAIN Last Admin: 06/09/19 02:05 Dose: 0.4 mg Polyethylene Glycol (Miralax (For Daily Use) -) 17 gm PO BID [facility] Last Admin: 06/11/19 09:25 Dose: 17 grams Tamsulosin HCl (Flomax -) 0.4 mg PO DAILY@0830 [facility] Last Admin: 06/11/19 09:25 Dose: 0.4 mg - Objective Vital Signs: Vital Signs Temperature 97.8 F 06/11/19 08:24 Pulse Rate 86 06/11/19 08:24 Respiratory Rate 20 11/13/19 08:24 Blood Pressure 127/66 06/11/19 08:24 O2 Sat by Pulse Oximetry (%) 94 L 06/11/19 08:24 Constitutional: Yes: Calm, Obese Eyes: Yes: WNL HENT: Yes: WNL Neck: Yes: WNL Cardiovascular: Yes: Regular Rate and Rhythm, S1, S2 Respiratory: Yes: Rhonchi (few scattered elma rhonchi) Gastrointestinal: Yes: Normal Bowel Sounds, Soft, Abdomen, Obese Extremities: Yes: WNL Edema: Yes Labs: CBC, BMP 06/11/19 06:30 06/11/19 06:30 INR, PTT INR 1.30 (0.83-1.09) H 05/27/19 11:05 Problem List - Problems (1) SOPHIE (acute kidney injury) Code(s): N17.9 - ACUTE KIDNEY FAILURE, UNSPECIFIED (2) CHF (congestive heart failure) Code(s): I50.9 - HEART FAILURE, UNSPECIFIED Qualifiers: Heart failure type: unspecified Heart failure chronicity: acute on chronic Qualified Code(s): I50.9 - Heart failure, unspecified (3) Pancytopenia Code(s): D61.818 - OTHER PANCYTOPENIA (4) Acute renal failure (ARF) Code(s): N17.9 - ACUTE KIDNEY FAILURE, UNSPECIFIED (5) Altered mental status Code(s): R41.82 - ALTERED MENTAL STATUS, UNSPECIFIED Qualifiers: Altered mental status type: disorientation Qualified Code(s): R41.0 - Disorientation, unspecified (6) Anemia Code(s): D64.9 - ANEMIA, UNSPECIFIED (7) COPD (chronic obstructive pulmonary disease) Code(s): J44.9 - CHRONIC OBSTRUCTIVE PULMONARY DISEASE, UNSPECIFIED (8) Chronic systolic congestive heart failure Code(s): I50.22 - CHRONIC SYSTOLIC (CONGESTIVE) HEART FAILURE (9) Cirrhosis of liver Code(s): K74.60 - UNSPECIFIED CIRRHOSIS OF LIVER (10) Esophageal varices Code(s): I85.00 - ESOPHAGEAL VARICES WITHOUT BLEEDING (11) Hepatic encephalopathy Code(s): K72.90 - HEPATIC FAILURE, UNSPECIFIED WITHOUT COMA (12) Hypoxia Code(s): R09.02 - HYPOXEMIA (13) Acute on chronic respiratory failure with hypoxia and hypercapnia Code(s): J96.21 - ACUTE AND CHRONIC RESPIRATORY FAILURE WITH HYPOXIA; J96.22 - ACUTE AND CHRONIC RESPIRATORY FAILURE WITH HYPERCAPNIA Assessment/Plan CONSULTATION DICTATED 05/08/19 IMP DYSPNEA IMPROVING CHF IMPROVING ACUTE ON CHRONIC HYPOXEMIC/HYPERCAPNEIC RESPIRATORY FAILURE IMPROVED VOLUME OVERLOAD IMPROVING ASCITES COPD O2 DEPENDENT PLEURAL EFFUSION HEPATIC ENCEPHALOPATHY DM CIRRHOSIS WITH ESOPHAGEAL VARICES S/P BANDING PANCYTOPENIA SLOWLY IMPROVING SOPHIE H/O ETOH PLAN CONTINUE DIURETICS CARDIAC MEDS PER CARDIOLOGY O2 DAILY WTS MONITOR LYTES,RENAL FUNCTION MONITOR H+H LACTULOSE DR COLLAZO Problem List - Problems (1) SOPHIE (acute kidney injury) Code(s): N17.9 - ACUTE KIDNEY FAILURE, UNSPECIFIED (2) CHF (congestive heart failure) Code(s): I50.9 - HEART FAILURE, UNSPECIFIED Qualifiers: Heart failure type: unspecified Heart failure chronicity: acute on chronic Qualified Code(s): I50.9 - Heart failure, unspecified (3) Pancytopenia Code(s): D61.818 - OTHER PANCYTOPENIA (4) Acute renal failure (ARF) Code(s): N17.9 - ACUTE KIDNEY FAILURE, UNSPECIFIED (5) Altered mental status Code(s): R41.82 - ALTERED MENTAL STATUS, UNSPECIFIED Qualifiers: Altered mental status type: disorientation Qualified Code(s): R41.0 - Disorientation, unspecified (6) Anemia Code(s): D64.9 - ANEMIA, UNSPECIFIED (7) COPD (chronic obstructive pulmonary disease) Code(s): J44.9 - CHRONIC OBSTRUCTIVE PULMONARY DISEASE, UNSPECIFIED (8) Chronic systolic congestive heart failure Code(s): I50.22 - CHRONIC SYSTOLIC (CONGESTIVE) HEART FAILURE (9) Cirrhosis of liver Code(s): K74.60 - UNSPECIFIED CIRRHOSIS OF LIVER (10) Esophageal varices Code(s): I85.00 - ESOPHAGEAL VARICES WITHOUT BLEEDING (11) Hepatic encephalopathy Code(s): K72.90 - HEPATIC FAILURE, UNSPECIFIED WITHOUT COMA (12) Hypoxia Code(s): R09.02 - HYPOXEMIA (13) Acute on chronic respiratory failure with hypoxia and hypercapnia Code(s): J96.21 - ACUTE AND CHRONIC RESPIRATORY FAILURE WITH HYPOXIA; J96.22 - ACUTE AND CHRONIC RESPIRATORY FAILURE WITH HYPERCAPNIA
--- NOTE | 2019-06-11 12:54 | PN ---
Progress Note (short form) - Note Progress Note: Renal follow up for SOPHIE/CKD Seen and examined at the bedside awake and alert on NC O2 no acute complaints sob is improved making urine HR controlled Vital Signs Temperature 97.8 F 06/11/19 08:24 Pulse Rate 86 06/11/19 08:24 Respiratory Rate 20 06/11/19 08:24 Blood Pressure 127/66 06/11/19 08:24 O2 Sat by Pulse Oximetry (%) 94 L 06/11/19 08:24 Intake & Output 06/08/19 06/09/19 06/10/19 06/11/19 23:59 23:59 23:59 23:59 Intake Total 565 853 3979 Output Total 1160 450 400 Balance -800 -320 800 Weight 132.54 kg NAD awake and alert neck supple RRR Dec BS + abd ascities + LE edema CBC, BMP 06/11/19 06:30 06/11/19 06:30 Current Medications Artificial Tears (Artificial Tears) 1 drop OU Q12H PRN PRN Reason: DRY EYES Last Admin: 06/08/19 21:25 Dose: 1 drop Ascorbic Acid (Vitamin C -) 500 mg PO DAILY [facility] Last Admin: 06/11/19 09:26 Dose: 500 mg Calcium Carbonate (Os-Gerhard 500mg -) 500 mg PO DAILY [facility] Last Admin: 06/11/19 09:25 Dose: 500 mg Ferrous Sulfate (Feosol -) 325 mg PO DAILY [facility] Last Admin: 06/11/19 09:26 Dose: 325 mg Furosemide (Lasix Injection -) 100 mg IVPB BID@0600,1400 [facility] Last Admin: 06/11/19 05:05 Dose: 100 mg Insulin Aspart (Novolog Vial Sliding Scale -) 1 vial SQ ACHS [facility]; Protocol Last Admin: 06/11/19 12:00 Dose: 4 units Insulin Detemir (Levemir Vial) 25 units SQ AM [facility] Last Admin: 06/11/19 06:45 Dose: 25 units Lactic Acid (Lac-Hydrin 12) 1 applic TP BID [facility] Last Admin: 06/11/19 09:27 Dose: 1 applic Lactulose (Cephulac (Oral Use)) 20 gm PO TID [facility] Levalbuterol HCl (Xopenex) 0.63 mg IH Q8H PRN PRN Reason: SHORT OF BREATH/WHEEZING Metoprolol Tartrate (Lopressor -) 100 mg PO BID [facility] Last Admin: 06/11/19 09:26 Dose: 100 mg Nitroglycerin (Nitrostat -) 0.4 mg SL Q5M PRN PRN Reason: FOR CHEST PAIN Last Admin: 06/09/19 02:05 Dose: 0.4 mg Polyethylene Glycol (Miralax (For Daily Use) -) 17 gm PO BID [facility] Last Admin: 06/11/19 09:25 Dose: 17 grams Tamsulosin HCl (Flomax -) 0.4 mg PO DAILY@0830 [facility] Last Admin: 06/11/19 09:25 Dose: 0.4 mg 74 year old gentleman with history of Alcoholic cirrhosis, hypertension, CHF presented with shortness of breath and increased abdominal girth and admitted for worsening ascities. 1. SOPHIE 2. Alcoholic cirrhosis with ascities 3. Anemia 4. Leukopenia/thrombocytopenia 5. CHF with volume overload 6. Hypertension 7. Mild hyperkalemia Renal function not improved but stable. No hyperkalemia or overt acidosis noted. Continue Lasix IV BID. Trend daily weights to monitor for improvement in volume status Check CXR in AM trend renal function and electrolytes Titrate lactulose to 3-4 BM's daily Cardiology follow up prognosis is guarded Ang Sanchez DO
[2019-06-11] MEDS: LACTULOSE 20 GM/30 ML UDC (FOR ORAL USE ONLY) PO SCH ×2 (14:25→22:30)
--- NOTE | 2019-06-11 15:04 | PN ---
Progress Note, Physician Chief Complaint: Fluid overload History of Present Illness: 74 y/o M with a history of NIDDM, 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 + orthopnea. Noted to have pancytopenia, ascites, coagulopathy, and elevated troponin. Echo 05/29/19 glob HK ef 35-40 mild RVHK mod mr mod-sev TR. Had pafib. His is not on AC or antiplatlets due to coagulopathy and liver disease 06/08/19 abrupt onset of tachycardia. narrow complex, regular rhythm at 125-130 BPM. ECG interpreted as sinus tachycardia. But it is likely atrial tachycardia. However, the voltage of the repeat 12-lead ECG is very low and unable to tell the axis of P wave in the inferior lead. Received IV Metoprolol with little improvement. - Current Medication List Current Medications: Active Medications Artificial Tears (Artificial Tears) 1 drop OU Q12H PRN PRN Reason: DRY EYES Last Admin: 06/08/19 21:25 Dose: 1 drop Ascorbic Acid (Vitamin C -) 500 mg PO DAILY [facility] Last Admin: 06/11/19 09:26 Dose: 500 mg Calcium Carbonate (Os-Gerhard 500mg -) 500 mg PO DAILY [facility] Last Admin: 06/11/19 09:25 Dose: 500 mg Ferrous Sulfate (Feosol -) 325 mg PO DAILY [facility] Last Admin: 06/11/19 09:26 Dose: 325 mg Furosemide (Lasix Injection -) 100 mg IVPB BID@0600,1400 [facility] Last Admin: 06/11/19 14:25 Dose: 100 mg Insulin Aspart (Novolog Vial Sliding Scale -) 1 vial SQ ACHS [facility]; Protocol Last Admin: 06/11/19 12:00 Dose: 4 units Insulin Detemir (Levemir Vial) 25 units SQ AM [facility] Last Admin: 06/11/19 06:45 Dose: 25 units Lactic Acid (Lac-Hydrin 12) 1 applic TP BID [facility] Last Admin: 06/11/19 09:27 Dose: 1 applic Lactulose (Cephulac (Oral Use)) 20 gm PO TID [facility] Last Admin: 06/11/19 14:25 Dose: 20 gm Levalbuterol HCl (Xopenex) 0.63 mg IH Q8H PRN PRN Reason: SHORT OF BREATH/WHEEZING Metoprolol Tartrate (Lopressor -) 100 mg PO BID [facility] Last Admin: 06/11/19 09:26 Dose: 100 mg Nitroglycerin (Nitrostat -) 0.4 mg SL Q5M PRN PRN Reason: FOR CHEST PAIN Last Admin: 06/09/19 02:05 Dose: 0.4 mg Polyethylene Glycol (Miralax (For Daily Use) -) 17 gm PO BID [facility] Last Admin: 06/11/19 09:25 Dose: 17 grams Tamsulosin HCl (Flomax -) 0.4 mg PO DAILY@0830 [facility] Last Admin: 06/11/19 09:25 Dose: 0.4 mg - Objective Vital Signs: Vital Signs Temperature 97.5 F L 06/11/19 13:54 Pulse Rate 79 06/11/19 13:54 Respiratory Rate 20 06/11/19 13:54 Blood Pressure 125/77 06/11/19 13:54 O2 Sat by Pulse Oximetry (%) 94 L 06/11/19 09:00 Constitutional: Yes: Ashen Eyes: Yes: WNL, EOM Intact HENT: Yes: WNL, Atraumatic, Normocephalic Neck: Yes: WNL, Supple, Trachea Midline Cardiovascular: Yes: WNL, Pulse Irregular Respiratory: Yes: Accessory Muscle Use, Rales Gastrointestinal: Yes: Soft, Ascites ...Rectal Exam: Yes: Deferred Edema: Yes Edema: LLE: 1+, RLE: 1+ Peripheral Pulses: Left Radial: 1+, Right Radial: 1+, Left Doralis Pedis: 1+, Right Dorsalis Pedis: 1+, Left Femoral: 1+, Right Femoral: 1+ Neurological: Yes: Confusion Labs: CBC, BMP 06/11/19 06:30 06/11/19 06:30 INR, PTT INR 1.30 (0.83-1.09) H 05/27/19 11:05 Assessment/Plan 74 y/o M with a history of NIDDM, 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 + orthopnea. Noted to have pancytopenia, ascites, coagulopathy, and elevated troponin. Echo 05/29/19 glob HK ef 35-40 mild RVHK mod mr mod-sev TR. Had pafib. His is not on AC or antiplatlets due to coagulopathy and liver disease 06/08/19 abrupt onset of tachycardia. narrow complex, regular rhythm at 125-130 BPM. ECG interpreted as sinus tachycardia. But it is likely atrial tachycardia. However, the voltage of the repeat 12-lead ECG is very low and unable to tell the axis of P wave in the inferior lead. Received IV Metoprolol with little improvement. no significant improvement. Remains fluid overloaded. Continue intravenous Lasix as currently. consider Zaroxolyn 5 mg half an hour prior to eachLasix dose strict salt and fluid restrictions. Poor prognosis.
[2019-06-12] MEDS: FUROSEMIDE 100 MG/10 ML INJECTABLE VIAL IVPB SCH ×2 (06:34→13:35)
[2019-06-12] MEDS: INSULIN SLIDING SCALE (NOVOLOG) 1 VIAL SQ SCH ×4 (06:37→21:56)
[2019-06-12] MEDS: LACTULOSE 20 GM/30 ML UDC (FOR ORAL USE ONLY) PO SCH ×4 (06:38→17:09)
[2019-06-12] MEDS: INSULIN (LEVEMIR) 100 UNITS/ML UNITS SQ SCH (06:38)
[2019-06-12 07:46] LABS: ALBUMIN 3.4 g/dl (3.4-5.0); BILIRUBIN,TOTAL 3.8 mg/dL (0.2-1); BLOOD UREA NITROGEN 99.1 mg/dL (7-18); MAGNESIUM 2.7 mg/dL (1.8-2.4); PHOSPHOROUS 4.1 mg/dL (2.5-4.9); POTASSIUM 3.3 mmol/L (3.5-5.1); TOT PROT 6.2 g/dl (6.4-8.2)
[2019-06-12] MEDS: TAMSULOSIN HCL 0.4 MG CAP PO SCH (08:41)
[2019-06-12] MEDS: METOPROLOL TARTRATE 50 MG TABLET (FP) PO SCH ×2 (10:47→21:54)
[2019-06-12] MEDS: ASCORBIC ACID 500 MG TABLET (FP) PO SCH (10:47)
[2019-06-12] MEDS: POLYETHYLENE GLYCOL 3350 119 GM BTL PO SCH ×2 (10:47→21:56)
[2019-06-12] MEDS: FERROUS SO4 325 MG TABLET (FP) PO SCH (10:47)
[2019-06-12] MEDS: AMMONIUM LACTATE 12% LOTION 225 GM BOTTLE TP SCH ×2 (10:47→21:55)
[2019-06-12] MEDS: CALCIUM (OYSTER SHELL) 500 MG TABLET (FP) PO SCH (10:47)
[2019-06-12] MEDS ORDERED: ALBUTEROL SO4 0.083% IH SOL 2.5 MG/3 ML VIAL.NEB. NEB PRN (10:51)
--- NOTE | 2019-06-12 13:14 | PN ---
Progress Note, Physician Chief Complaint: Fluid overload History of Present Illness: 74 y/o M with a history of NIDDM, 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 + orthopnea. Noted to have pancytopenia, ascites, coagulopathy, and elevated troponin. Echo 05/29/19 glob HK ef 35-40 mild RVHK mod mr mod-sev TR. Had pafib. His is not on AC or antiplatlets due to coagulopathy and liver disease 06/08/19 abrupt onset of tachycardia. narrow complex, regular rhythm at 125-130 BPM. ECG interpreted as sinus tachycardia. But it is likely atrial tachycardia. However, the voltage of the repeat 12-lead ECG is very low and unable to tell the axis of P wave in the inferior lead. Received IV Metoprolol with little improvement. - Current Medication List Current Medications: Active Medications Albuterol Sulfate (Ventolin 0.083% Nebulizer Soln -) 1 amp NEB Q6H PRN PRN Reason: SHORT OF BREATH/WHEEZING Artificial Tears (Artificial Tears) 1 drop OU Q12H PRN PRN Reason: DRY EYES Last Admin: 06/08/19 21:25 Dose: 1 drop Ascorbic Acid (Vitamin C -) 500 mg PO DAILY [facility] Last Admin: 06/12/19 10:47 Dose: 500 mg Calcium Carbonate (Os-Gerhard 500mg -) 500 mg PO DAILY [facility] Last Admin: 06/12/19 10:47 Dose: 500 mg Ferrous Sulfate (Feosol -) 325 mg PO DAILY [facility] Last Admin: 06/12/19 10:47 Dose: 325 mg Furosemide (Lasix Injection -) 100 mg IVPB BID@0600,1400 [facility] Last Admin: 06/12/19 06:34 Dose: 100 mg Insulin Aspart (Novolog Vial Sliding Scale -) 1 vial SQ ACHS [facility]; Protocol Last Admin: 06/12/19 12:07 Dose: 2 units Insulin Detemir (Levemir Vial) 25 units SQ AM [facility] Last Admin: 06/12/19 06:38 Dose: 25 units Lactic Acid (Lac-Hydrin 12) 1 applic TP BID [facility] Last Admin: 06/12/19 10:47 Dose: 1 applic Lactulose (Cephulac (Oral Use)) 20 gm PO TID [facility] Last Admin: 06/12/19 06:38 Dose: Not Given Metoprolol Tartrate (Lopressor -) 100 mg PO BID [facility] Last Admin: 06/12/19 10:47 Dose: 100 mg Nitroglycerin (Nitrostat -) 0.4 mg SL Q5M PRN PRN Reason: FOR CHEST PAIN Last Admin: 06/09/19 02:05 Dose: 0.4 mg Polyethylene Glycol (Miralax (For Daily Use) -) 17 gm PO BID [facility] Last Admin: 06/12/19 10:47 Dose: Not Given Tamsulosin HCl (Flomax -) 0.4 mg PO DAILY@0830 [facility] Last Admin: 06/12/19 08:41 Dose: Not Given - Objective Vital Signs: Vital Signs Temperature 97.8 F 06/12/19 08:10 Pulse Rate 89 06/12/19 08:10 Respiratory Rate 18 06/12/19 08:10 Blood Pressure 110/64 06/12/19 08:10 O2 Sat by Pulse Oximetry (%) 96 06/12/19 08:43 Constitutional: Yes: Calm Eyes: Yes: WNL HENT: Yes: WNL Neck: Yes: WNL, Supple, Trachea Midline Cardiovascular: Yes: Pulse Irregular, S1, S2 Respiratory: Yes: Regular, Rales, Rhonchi Gastrointestinal: Yes: WNL, Normal Bowel Sounds, Soft ...Rectal Exam: Yes: Deferred Edema: Yes Edema: LLE: 1+, RLE: 1+ Peripheral Pulses: Left Radial: 1+, Right Radial: 1+, Left Doralis Pedis: 1+, Right Dorsalis Pedis: 1+, Left Femoral: 1+, Right Femoral: 1+ Neurological: Yes: Alert Labs: CBC, BMP 06/11/19 06:30 06/12/19 06:20 INR, PTT INR 1.30 (0.83-1.09) H 05/27/19 11:05 Assessment/Plan 74 y/o M with a history of NIDDM, 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 + orthopnea. Noted to have pancytopenia, ascites, coagulopathy, and elevated troponin. Echo 05/29/19 glob HK ef 35-40 mild RVHK mod mr mod-sev TR. Had pafib. His is not on AC or antiplatlets due to coagulopathy and liver disease 06/08/19 abrupt onset of tachycardia. narrow complex, regular rhythm at 125-130 BPM. ECG interpreted as sinus tachycardia. But it is likely atrial tachycardia. However, the voltage of the repeat 12-lead ECG is very low and unable to tell the axis of P wave in the inferior lead. Received IV Metoprolol with little improvement. no significant improvementon fluid status. Would start Zaroxolyn 5 mg 30 minutesbefore each intravenous Lasix dose. salt and fluid restrictions. Poor prognosis
--- NOTE | 2019-06-12 13:26 | PN ---
Progress Note (short form) - Note Progress Note: NAD on NC O2. Confused and agitated overnight. Remains confused. Breathing is non-labored. Intake & Output 06/09/19 06/10/19 06/11/19 06/12/19 23:59 23:59 23:59 23:59 Intake Total 130 1200 550 287 Output Total 450 400 Balance -320 800 550 287 Last Vital Signs Temp Pulse Resp BP Pulse Ox 97.8 F 89 18 110/64 96 06/12/19 08:10 06/12/19 08:10 06/12/19 08:10 06/12/19 08:10 06/12/19 08:43 Active Medications Albuterol Sulfate (Ventolin 0.083% Nebulizer Soln -) 1 amp NEB Q6H PRN PRN Reason: SHORT OF BREATH/WHEEZING Artificial Tears (Artificial Tears) 1 drop OU Q12H PRN PRN Reason: DRY EYES Last Admin: 06/08/19 21:25 Dose: 1 drop Ascorbic Acid (Vitamin C -) 500 mg PO DAILY [facility] Last Admin: 06/12/19 10:47 Dose: 500 mg Calcium Carbonate (Os-Gerhard 500mg -) 500 mg PO DAILY [facility] Last Admin: 06/12/19 10:47 Dose: 500 mg Ferrous Sulfate (Feosol -) 325 mg PO DAILY [facility] Last Admin: 06/12/19 10:47 Dose: 325 mg Furosemide (Lasix Injection -) 100 mg IVPB BID@0600,1400 [facility] Last Admin: 06/12/19 06:34 Dose: 100 mg Insulin Aspart (Novolog Vial Sliding Scale -) 1 vial SQ ACHS [facility]; Protocol Last Admin: 06/12/19 12:07 Dose: 2 units Insulin Detemir (Levemir Vial) 25 units SQ AM [facility] Last Admin: 06/12/19 06:38 Dose: 25 units Lactic Acid (Lac-Hydrin 12) 1 applic TP BID [facility] Last Admin: 06/12/19 10:47 Dose: 1 applic Lactulose (Cephulac (Oral Use)) 20 gm PO TID [facility] Last Admin: 06/12/19 06:38 Dose: Not Given Metoprolol Tartrate (Lopressor -) 100 mg PO BID [facility] Last Admin: 06/12/19 10:47 Dose: 100 mg Nitroglycerin (Nitrostat -) 0.4 mg SL Q5M PRN PRN Reason: FOR CHEST PAIN Last Admin: 06/09/19 02:05 Dose: 0.4 mg Polyethylene Glycol (Miralax (For Daily Use) -) 17 gm PO BID [facility] Last Admin: 06/12/19 10:47 Dose: Not Given Tamsulosin HCl (Flomax -) 0.4 mg PO DAILY@0830 [facility] Last Admin: 06/12/19 08:41 Dose: Not Given Constitutional: Yes: NAD, Obese Eyes: Yes: WNL HENT: Yes: WNL Neck: Yes: WNL Cardiovascular: Yes: S1, S2 Respiratory: Yes: Diminished, few scattered rhonchi Extremities: Yes: WNL Edema: Yes Labs: Laboratory Results - last 24 hr 06/11/19 06/11/19 06/12/19 16:18 23:04 06:20 Sodium 139 Potassium 3.3 L Chloride 98 Carbon Dioxide 33 H Anion Gap 9 BUN 99.1 H Creatinine 2.0 H Est GFR (CKD-EPI)AfAm 37.27 Est GFR (CKD-EPI)NonAf 32.15 POC Glucometer 203 172 Random Glucose 181 H Calcium 9.0 Phosphorus 4.1 Magnesium 2.7 H Total Bilirubin 3.8 H AST 28 ALT 33 Alkaline Phosphatase 193 H Total Protein 6.2 L Albumin 3.4 06/12/19 06/12/19 06:35 12:01 Sodium Potassium Chloride Carbon Dioxide Anion Gap BUN Creatinine Est GFR (CKD-EPI)AfAm Est GFR (CKD-EPI)NonAf POC Glucometer 170 216 Random Glucose Calcium Phosphorus Magnesium Total Bilirubin AST ALT Alkaline Phosphatase Total Protein Albumin Problem List - Problems (1) SOPHIE (acute kidney injury) Code(s): N17.9 - ACUTE KIDNEY FAILURE, UNSPECIFIED (2) CHF (congestive heart failure) Code(s): I50.9 - HEART FAILURE, UNSPECIFIED Qualifiers: Heart failure type: unspecified Heart failure chronicity: acute on chronic Qualified Code(s): I50.9 - Heart failure, unspecified (3) Pancytopenia Code(s): D61.818 - OTHER PANCYTOPENIA (4) Acute renal failure (ARF) Code(s): N17.9 - ACUTE KIDNEY FAILURE, UNSPECIFIED (5) Altered mental status Code(s): R41.82 - ALTERED MENTAL STATUS, UNSPECIFIED Qualifiers: Altered mental status type: disorientation Qualified Code(s): R41.0 - Disorientation, unspecified (6) Anemia Code(s): D64.9 - ANEMIA, UNSPECIFIED (7) COPD (chronic obstructive pulmonary disease) Code(s): J44.9 - CHRONIC OBSTRUCTIVE PULMONARY DISEASE, UNSPECIFIED (8) Chronic systolic congestive heart failure Code(s): I50.22 - CHRONIC SYSTOLIC (CONGESTIVE) HEART FAILURE (9) Cirrhosis of liver Code(s): K74.60 - UNSPECIFIED CIRRHOSIS OF LIVER (10) Esophageal varices Code(s): I85.00 - ESOPHAGEAL VARICES WITHOUT BLEEDING (11) Hepatic encephalopathy Code(s): K72.90 - HEPATIC FAILURE, UNSPECIFIED WITHOUT COMA (12) Hypoxia Code(s): R09.02 - HYPOXEMIA (13) Acute on chronic respiratory failure with hypoxia and hypercapnia Code(s): J96.21 - ACUTE AND CHRONIC RESPIRATORY FAILURE WITH HYPOXIA; J96.22 - ACUTE AND CHRONIC RESPIRATORY FAILURE WITH HYPERCAPNIA Assessment/Plan IMP DYSPNEA IMPROVING CHF IMPROVING ACUTE ON CHRONIC HYPOXEMIC/HYPERCAPNEIC RESPIRATORY FAILURE IMPROVING VOLUME OVERLOAD IMPROVING ASCITES COPD O2 DEPENDENT PLEURAL EFFUSION HEPATIC ENCEPHALOPATHY DM CIRRHOSIS WITH ESOPHAGEAL VARICES S/P BANDING PANCYTOPENIA SLOWLY IMPROVING SOPHIE H/O ETOH PLAN CARDIAC MEDS ORDERED BY CARDIOLOGY DIURETICS O2 NEEDED TO MAINTAIN SATURATION NO SMOKING DR DAVIDSON
[2019-06-12] MEDS ORDERED: POTASSIUM CHLORIDE TABS 20 MEQ TABLET.ER (FP) PO ONE (13:45)
[2019-06-12] MEDS ORDERED: POTASSIUM CHLORIDE ORAL LIQUID 20 MEQ/15 ML PO ONE (14:45)
--- NOTE | 2019-06-12 14:51 | PN ---
Progress Note (short form) - Note Progress Note: Renal follow up for SOPHIE/CKD Seen and examined at the bedside sleeping but arouseable no acute complaints making urine denies sob, cp, fever or chills Vital Signs Temperature 97.4 F L 06/12/19 14:45 Pulse Rate 83 06/12/19 14:45 Respiratory Rate 22 H 06/12/19 14:45 Blood Pressure 118/57 L 06/12/19 14:45 O2 Sat by Pulse Oximetry (%) 96 06/12/19 08:43 Intake & Output 06/09/19 06/10/19 06/11/19 06/12/19 23:59 23:59 23:59 23:59 Intake Total 130 1200 550 287 Output Total 450 400 Balance -320 800 550 287 NAD awake and alert neck supple RRR Dec BS + abd ascities + LE edema CBC, BMP 06/11/19 06:30 06/12/19 06:20 Current Medications Albuterol Sulfate (Ventolin 0.083% Nebulizer Soln -) 1 amp NEB Q6H PRN PRN Reason: SHORT OF BREATH/WHEEZING Artificial Tears (Artificial Tears) 1 drop OU Q12H PRN PRN Reason: DRY EYES Last Admin: 06/08/19 21:25 Dose: 1 drop Ascorbic Acid (Vitamin C -) 500 mg PO DAILY [facility] Last Admin: 06/12/19 10:47 Dose: 500 mg Calcium Carbonate (Os-Gerhard 500mg -) 500 mg PO DAILY [facility] Last Admin: 06/12/19 10:47 Dose: 500 mg Ferrous Sulfate (Feosol -) 325 mg PO DAILY [facility] Last Admin: 06/12/19 10:47 Dose: 325 mg Furosemide (Lasix Injection -) 100 mg IVPB BID@0600,1400 [facility] Last Admin: 06/12/19 13:35 Dose: 100 mg Insulin Aspart (Novolog Vial Sliding Scale -) 1 vial SQ ACHS [facility]; Protocol Last Admin: 06/12/19 12:07 Dose: 2 units Insulin Detemir (Levemir Vial) 25 units SQ AM [facility] Last Admin: 06/12/19 06:38 Dose: 25 units Lactic Acid (Lac-Hydrin 12) 1 applic TP BID [facility] Last Admin: 06/12/19 10:47 Dose: 1 applic Metoprolol Tartrate (Lopressor -) 100 mg PO BID [facility] Last Admin: 06/12/19 10:47 Dose: 100 mg Nitroglycerin (Nitrostat -) 0.4 mg SL Q5M PRN PRN Reason: FOR CHEST PAIN Last Admin: 06/09/19 02:05 Dose: 0.4 mg Polyethylene Glycol (Miralax (For Daily Use) -) 17 gm PO BID [facility] Last Admin: 06/12/19 10:47 Dose: Not Given Tamsulosin HCl (Flomax -) 0.4 mg PO DAILY@0830 [facility] Last Admin: 06/12/19 08:41 Dose: Not Given 74 year old gentleman with history of Alcoholic cirrhosis, hypertension, CHF presented with shortness of breath and increased abdominal girth and admitted for worsening ascities. 1. SOPHIE 2. Alcoholic cirrhosis with ascities 3. Anemia 4. Leukopenia/thrombocytopenia 5. CHF with volume overload 6. Hypertension 7. Mild hyperkalemia Renal function stable, BUN trending up. Continue IV Lasix as he remains volume overloaded Check CXR in AM trend renal function and electrolytes Titrate lactulose to 2-3 BM's daily (increased to Q6h) Cardiology follow up Ang Sanchez DO
--- NOTE | 2019-06-12 15:22 | PN ---
Progress Note, Physician Chief Complaint: patient seen and examined awake in bed confused - Current Medication List Current Medications: Active Medications Albuterol Sulfate (Ventolin 0.083% Nebulizer Soln -) 1 amp NEB Q6H PRN PRN Reason: SHORT OF BREATH/WHEEZING Artificial Tears (Artificial Tears) 1 drop OU Q12H PRN PRN Reason: DRY EYES Last Admin: 06/08/19 21:25 Dose: 1 drop Ascorbic Acid (Vitamin C -) 500 mg PO DAILY [facility] Last Admin: 06/12/19 10:47 Dose: 500 mg Calcium Carbonate (Os-Gerhard 500mg -) 500 mg PO DAILY [facility] Last Admin: 06/12/19 10:47 Dose: 500 mg Ferrous Sulfate (Feosol -) 325 mg PO DAILY [facility] Last Admin: 06/12/19 10:47 Dose: 325 mg Furosemide (Lasix Injection -) 100 mg IVPB BID@0600,1400 [facility] Last Admin: 06/12/19 13:35 Dose: 100 mg Insulin Aspart (Novolog Vial Sliding Scale -) 1 vial SQ ACHS [facility]; Protocol Last Admin: 06/12/19 12:07 Dose: 2 units Insulin Detemir (Levemir Vial) 25 units SQ AM [facility] Last Admin: 06/12/19 06:38 Dose: 25 units Lactic Acid (Lac-Hydrin 12) 1 applic TP BID [facility] Last Admin: 06/12/19 10:47 Dose: 1 applic Lactulose (Cephulac (Oral Use)) 20 gm PO Q6HPO [facility] 234 [facility]S [facility] Last Admin: 06/12/19 15:20 Dose: 20 gm Metoprolol Tartrate (Lopressor -) 100 mg PO BID [facility] Last Admin: 06/12/19 10:47 Dose: 100 mg Nitroglycerin (Nitrostat -) 0.4 mg SL Q5M PRN PRN Reason: FOR CHEST PAIN Last Admin: 06/09/19 02:05 Dose: 0.4 mg Polyethylene Glycol (Miralax (For Daily Use) -) 17 gm PO BID [facility] Last Admin: 06/12/19 10:47 Dose: Not Given Tamsulosin HCl (Flomax -) 0.4 mg PO DAILY@0830 [facility] 234 [facility] Last Admin: 06/12/19 08:41 Dose: Not Given - Objective Vital Signs: Vital Signs Temperature 97.4 F L 06/12/19 14:45 Pulse Rate 83 06/12/19 14:45 Respiratory Rate 22 H 06/12/19 14:45 Blood Pressure 118/57 L 06/12/19 14:45 O2 Sat by Pulse Oximetry (%) 96 06/12/19 08:43 Constitutional: Yes: Calm Cardiovascular: Yes: Regular Rate and Rhythm, Murmur, S1, S2 Respiratory: Yes: Diminished Gastrointestinal: Yes: Normal Bowel Sounds, Soft Edema: Yes Labs: CBC, BMP 06/11/19 06:30 06/12/19 06:20 INR, PTT INR 1.30 (0.83-1.09) H 05/27/19 11:05 Problem List - Problems (1) CHF (congestive heart failure) Assessment/Plan: iv lasix dose increase to 60mg bid to 100mg bid albumin completed echo left ventricle systolic function is severly reduced chest ct show right side pleural effusion more than left side pleural effusion Code(s): I50.9 - HEART FAILURE, UNSPECIFIED Qualifiers: Heart failure type: unspecified Heart failure chronicity: acute on chronic Qualified Code(s): I50.9 - Heart failure, unspecified (2) Ascites Assessment/Plan: continue with lasix and now on metalozone and aldactone improving with increased dose of iv lasix 60mg bid to 100mg iv bid Code(s): R18.8 - OTHER ASCITES (3) Cirrhosis of liver Assessment/Plan: aldactone ,nadolol,rifaximin, ultrasound shows liver mass in left lobe lactulose Code(s): K74.60 - UNSPECIFIED CIRRHOSIS OF LIVER (4) Type II diabetes mellitus, uncontrolled Assessment/Plan: insulin and bgm Code(s): E11.65 - TYPE 2 DIABETES MELLITUS WITH HYPERGLYCEMIA (5) Acquired thrombocytopenia Assessment/Plan: secondary to cirrhosis/hyperslenism platelet count is better now 93 continue to monitor Code(s): D69.59 - OTHER SECONDARY THROMBOCYTOPENIA (6) Afib Code(s): I48.91 - UNSPECIFIED ATRIAL FIBRILLATION
--- NOTE | 2019-06-12 15:46 | PN ---
Physical Exam: Heme/Onc Service SUBJECTIVE: Patient seen and examined at bedside. No accute events. Pt still confused. OBJECTIVE: Vital Signs Period Temp Pulse Resp BP Sys/Block Pulse Ox Last 24 Hr 97.1 F-98 F 79-89 18-22 101-127/57-68 96-96 Gen: Confused, slightly tachypnic HEENT: NCAT, dry membranes (likely from mouth breathing) Neck: projound jvd, no bruits, no thyromegally noted Cardio: irregular, systolic murmur, normal s1s2 Pulm: bibasilar rales. Poor effort Abd: soft, nontender, obese, dull to percussion laterally (pt could not roll for shifting dullness) Ext: 3+ pitting edema Laboratory Results - last 24 hr 06/11/19 06/11/19 06/12/19 16:18 23:04 06:20 Sodium 139 Potassium 3.3 L Chloride 98 Carbon Dioxide 33 H Anion Gap 9 BUN 99.1 H Creatinine 2.0 H Est GFR (CKD-EPI)AfAm 37.27 Est GFR (CKD-EPI)NonAf 32.15 POC Glucometer 203 172 Random Glucose 181 H Calcium 9.0 Phosphorus 4.1 Magnesium 2.7 H Total Bilirubin 3.8 H AST 28 ALT 33 Alkaline Phosphatase 193 H Total Protein 6.2 L Albumin 3.4 06/12/19 06/12/19 06:35 12:01 Sodium Potassium Chloride Carbon Dioxide Anion Gap BUN Creatinine Est GFR (CKD-EPI)AfAm Est GFR (CKD-EPI)NonAf POC Glucometer 170 216 Random Glucose Calcium Phosphorus Magnesium Total Bilirubin AST ALT Alkaline Phosphatase Total Protein Albumin Active Medications Generic Name Dose Route Start Last Admin Trade Name Freq PRN Reason Stop Dose Admin Albuterol Sulfate 1 amp 06/12/19 10:51 Ventolin 0.083% Nebulizer Soln - NEB Q6H PRN SHORT OF BREATH/WHEEZING Artificial Tears 1 drop 06/08/19 20:35 06/08/19 21:25 Artificial Tears OU 1 drop Q12H PRN Administration DRY EYES Ascorbic Acid 500 mg 05/28/19 10:00 06/12/19 10:47 Vitamin C - PO 500 mg DAILY [facility] Administration Calcium Carbonate 500 mg 05/28/19 10:00 06/12/19 10:47 Os-Gerhard 500mg - PO 500 mg DAILY [facility] Administration Ferrous Sulfate 325 mg 05/28/19 10:00 06/12/19 10:47 Feosol - PO 325 mg DAILY [facility] Administration Furosemide 100 mg 06/11/19 06:00 06/12/19 13:35 Lasix Injection - IVPB 100 mg BID@0600,1400 [facility] Administration Insulin Aspart 1 vial 05/27/19 17:31 06/12/19 12:07 Novolog Vial Sliding Scale - SQ 2 units ACHS [facility] Administration Protocol Insulin Detemir 25 units 05/28/19 07:00 06/12/19 06:38 Levemir Vial SQ 25 units AM [facility] Administration Lactic Acid 1 applic 06/02/19 16:52 06/12/19 10:47 Lac-Hydrin 12 TP 1 applic BID [facility] Administration Lactulose 20 gm 06/12/19 15:00 06/12/19 15:20 Cephulac (Oral Use) PO 20 gm Q6HPO [facility] Administration Metoprolol Tartrate 100 mg 06/10/19 10:00 06/12/19 10:47 Lopressor - PO 100 mg BID [facility] Administration Nitroglycerin 0.4 mg 06/08/19 18:49 06/09/19 02:05 Nitrostat - SL 0.4 mg Q5M PRN Administration FOR CHEST PAIN Polyethylene Glycol 17 gm 05/28/19 22:00 06/12/19 10:47 Miralax (For Daily Use) - PO Not Given BID [facility] Tamsulosin HCl 0.4 mg 05/28/19 08:30 06/12/19 08:41 Flomax - PO Not Given DAILY@0830 [facility] ASSESSMENT/PLAN: 74 yo m w/ PMH HTN, CHF, COPD, Cirrhosis (2/2 etoh abuse), with varices s/p variceal banding, hepatic encephalopathy who is from [facility] for SOB. In the ED , he was found to be pancytopenic. Hematology was consulted for assistance in the evaluation of this pancytopenia. Pancytopenia likley 2/2 cirrhosis and hypersplenism -elevated bili, alk phos, -B12, folate, TSH unremarkable. - Iron studies, SPEP, UPEP -flow cytometry/FISH/Cytogenetics pending -AFP neg, PEP low, Urine protein 13.5, Urine Protein/Insulating Machine Operator 0.2 -Immunology neg for M-spike -Abd US: 3.4 x 2.6 x 2.9 cm lobulated left hepatic lobe mass suspicious for HCC. Also cholelithiasis, ascites, R pleural effusion -Abd MRI pending. Evidently, pt was not able to tolerate MRI. May need to complete open MRI as outpt. Or might try once pt is better able to tolerate Hepatic Encephalopathy -still confused -ammonia trending up -lactulose Visit type - Emergency Visit Emergency Visit: No - New Patient This patient is new to me today: No - Critical Care Critical Care patient: No ATTENDING PHYSICIAN STATEMENT I saw and evaluated the patient. I reviewed the resident's note and discussed the case with the resident. I agree with the resident's findings and plan as documented. SUBJECTIVE: OBJECTIVE: ASSESSMENT AND PLAN:
[2019-06-13] MEDS: LACTULOSE 20 GM/30 ML UDC (FOR ORAL USE ONLY) PO SCH ×4 (00:04→18:39)
[2019-06-13] MEDS: FUROSEMIDE 100 MG/10 ML INJECTABLE VIAL IVPB SCH ×2 (06:05→13:52)
[2019-06-13 06:11] LABS: EOS % 2.1 % (0-4.5); HEMATOCRIT 29.7 % (35.4-49); MCHC 33.7 g/dl (32.0-35.9); MEAN CELL VOLUME 100.9 fl (80-96); MEAN PLT VOLUME 9.2 fl (7.5-11.1); MONO % 7.7 % (3.8-10.2); NEUT % 80.2 % (42.8-82.8); PLATELET COUNT 89 K/MM3 (134-434); RBC 2.95 M/mm3 (4.00-5.60); RDW 15.7 % (11.9-15.9); WHITE BLOOD COUNT 6.4 K/mm3 (4.0-10.0)
[2019-06-13] MEDS: INSULIN (LEVEMIR) 100 UNITS/ML UNITS SQ SCH (06:12)
[2019-06-13] MEDS: INSULIN SLIDING SCALE (NOVOLOG) 1 VIAL SQ SCH ×4 (06:15→21:57)
[2019-06-13 06:34] LABS: BLOOD UREA NITROGEN 100.4 mg/dL (7-18); CALCIUM 9.2 mg/dL (8.5-10.1); MAGNESIUM 2.6 mg/dL (1.8-2.4); PHOSPHOROUS 3.8 mg/dL (2.5-4.9); POTASSIUM 3.4 mmol/L (3.5-5.1)
[2019-06-13] MEDS: TAMSULOSIN HCL 0.4 MG CAP PO SCH (08:00)
[2019-06-13] MEDS ORDERED: MINERAL OIL ENEMA 133 ML ENEMA PR ONE (11:00)
[2019-06-13] MEDS: AMMONIUM LACTATE 12% LOTION 225 GM BOTTLE TP SCH ×2 (11:04→21:57)
[2019-06-13] MEDS: METOPROLOL TARTRATE 50 MG TABLET (FP) PO SCH (11:05)
[2019-06-13] MEDS: POLYETHYLENE GLYCOL 3350 119 GM BTL PO SCH (11:05)
[2019-06-13] MEDS: FERROUS SO4 325 MG TABLET (FP) PO SCH (11:06)
[2019-06-13] MEDS: CALCIUM (OYSTER SHELL) 500 MG TABLET (FP) PO SCH (11:06)
[2019-06-13] MEDS: ASCORBIC ACID 500 MG TABLET (FP) PO SCH (11:06)
--- NOTE | 2019-06-13 11:12 | CONSULT ---
Admitting History and Physical - Primary Care Physician PCP: Nidhi Vargas - Admission History of Present Illness: Patient is a 74 y/o male with past medical history of IDDM, Hepatic Encephalopathy, Liver Cirrhosis, Esophageal Varices, CHF, COPD, and HTN, admitted from [facility] for worsening SOB x 1 month accompanied with productive cough on 05/27.LFTs noted with upward trend and elevated Ammonia level Pt is edentulous but has been on reg diet, refused chopped foods. Pt had a good appetite but now confused/lethargic. Noted to cough intermittently on thin liquids. Oral holding. Less verbal. Now NPO. Known to me from previous admissions. Noted to cough intermittently during Mar 2019 admission. MBS revealed deep penetration on thin liquid into laryngeal vestibule, improved with straw drinking. Impulsive intake, reduced efficiency of mastication,edentulous. REC- Soft, mechanical, chopped meat, HOB elevated, straw trial, verbal cues to reduce impulsivity. Selected Entries 06/12/19 06/12/19 06/12/19 02:00 06:00 08:10 Breakfast Lunch Supper Temperature 97.8 F 97.6 F 97.8 F 06/12/19 06/12/19 06/12/19 12:09 14:45 18:00 Breakfast 100% Lunch 75% Supper 25% Temperature 97.4 F L 97.6 F 06/12/19 06/13/19 06/13/19 22:00 02:00 06:00 Breakfast Lunch Supper Temperature 98.0 F 97.2 F L 97.4 F L 06/13/19 06/13/19 08:01 10:40 Breakfast 0 Lunch Supper Temperature 97.9 F Laboratory Tests 06/11/19 06/13/19 06:30 06:00 WBC 4.6 6.4 History Source: Medical Record Limitations to Obtaining History: Clinical Condition - Past Medical History Cardiovascular: Yes: CHF, HTN. No: AFIB, CAD Pulmonary: Yes: COPD Gastrointestinal: Yes: Esophageal Varices, Other (Hepatic encephalopathy) Hepatobiliary: Yes: Cirrhosis (Alcohol induced) Renal/: Yes: BPH Infectious Disease: Yes: Other (pneumonia) Endocrine: Yes: Diabetes Mellitus - Past Surgical History Past Surgical History: Yes: Hernia Repair, Upper Endoscopy - Smoking History Smoking history: Former smoker Have you smoked in the past 12 months: No Aproximately how many cigarettes per day: 10 If you are a former smoker, when did you quit?: smokes daily - Alcohol/Substance Use Hx Alcohol Use: No History of Substance Use: reports: None, Cocaine (ex intranasal cocaine use) - Social History ADL: Independent Occupation: son lives upstairs History of Recent Travel: No History - Admission Reason For Visit: ACUTE KIDNEY INJURY,CHF,ELEVATED TROPONIN LEVEL - Diagnostics Modified Barium Swallow: Report Reviewed (Mar 2019 MBS revealed deep penetration on thin liquid into laryngeal vestibule, improved with straw drinking. Impulsive intake, reduced efficiency of mastication,edentulous. REC- Soft, mechanical, chopped meat, HOB elevated, straw trial, verbal cues to reduce impulsivity.) - General Mental Status: Confused, Flat Affect, Lethargic Attention: Moderate Impairment Ability to Follow Directions: Poor - Hearing Hearing: Normal Speech Evaluation - Communication Primary Language: INDONESIAN Communication: Yes: Non-Communicable (used to verbalize but not respond. No verbalizations/response today.) - Speech Characteristics Articulation: Yes: Precise - Language/Auditory Comprehension Observation: Able to respond to yes/no queries: No, Comprehends Conversational Speech: No (questionable) - Swallow Evaluation/Bedside Assessment Current Nutritional Intake: NPO Oral Secretions: Yes: WFL Dentition: Yes: Edentulous Facial Symmetry at Rest: Symmetrical Facial Symmetry on Retraction: Symmetrical Jaw Position: Open at Rest Against Resistance Opening: Weak Against Resistance Closing: Weak Recommendations - Speech Evaluation, Impression/Plan Impression: Eyes open but no visual tracking,no verbalizations. Cough/ congested. Holding food in mouth this am. BOBBY not sufficient for PO intake at present and risk of aspiration - Dysphagia Impressions/Plan Swallowing Skills: Impaired Dysphagia Impressions: Ongoing Evaluation, Suspect Aspiration *Silent aspiration: cannot be R/O at bedside Recommendations: Other (Contiue NPO for now. However, as mental status improves , trial Dys puree/nectar thick.) - Recommendations Diet Consistency: NPO Liquids: NPO
--- NOTE | 2019-06-13 11:19 | PN ---
Progress Note, Physician History of Present Illness: PULMONARY AWAKE,NON-VERBAL,MILD CONGESTION - Current Medication List Current Medications: Active Medications Albuterol Sulfate (Ventolin 0.083% Nebulizer Soln -) 1 amp NEB Q6H PRN PRN Reason: SHORT OF BREATH/WHEEZING Artificial Tears (Artificial Tears) 1 drop OU Q12H PRN PRN Reason: DRY EYES Last Admin: 06/08/19 21:25 Dose: 1 drop Furosemide (Lasix Injection -) 100 mg IVPB BID@0600,1400 [facility] Last Admin: 06/13/19 06:05 Dose: 100 mg Insulin Aspart (Novolog Vial Sliding Scale -) 1 vial SQ ACHS [facility]; Protocol Last Admin: 06/13/19 06:15 Dose: Not Given Lactic Acid (Lac-Hydrin 12) 1 applic TP BID [facility] Last Admin: 06/13/19 11:04 Dose: 1 applic Lactulose (Cephulac (Oral Use)) 20 gm PO Q6HPO [facility] Last Admin: 06/13/19 06:05 Dose: 20 gm Metoprolol Tartrate (Lopressor -) 100 mg PO BID [facility] Last Admin: 06/13/19 11:05 Dose: Not Given Nitroglycerin (Nitrostat -) 0.4 mg SL Q5M PRN PRN Reason: FOR CHEST PAIN Last Admin: 06/09/19 02:05 Dose: 0.4 mg Polyethylene Glycol (Miralax (For Daily Use) -) 17 gm PO BID [facility] Last Admin: 06/13/19 11:05 Dose: Not Given Tamsulosin HCl (Flomax -) 0.4 mg PO DAILY@0830 [facility] Last Admin: 06/13/19 08:00 Dose: Not Given - Objective Vital Signs: Vital Signs Temperature 97.9 F 06/13/19 08:01 Pulse Rate 90 06/13/19 08:01 Respiratory Rate 18 06/13/19 08:01 Blood Pressure 134/70 06/13/19 08:01 O2 Sat by Pulse Oximetry (%) 97 06/12/19 21:00 Constitutional: Yes: Well Nourished, Calm Eyes: Yes: WNL HENT: Yes: WNL Neck: Yes: WNL Cardiovascular: Yes: Regular Rate and Rhythm, S1, S2 Respiratory: Yes: Diminished, Rhonchi (FEW RHONCHI) Gastrointestinal: Yes: Normal Bowel Sounds, Soft Extremities: Yes: WNL Edema: Yes Labs: CBC, BMP 06/13/19 06:00 06/13/19 06:00 INR, PTT INR 1.30 (0.83-1.09) H 05/27/19 11:05 Problem List - Problems (1) SOPHIE (acute kidney injury) Code(s): N17.9 - ACUTE KIDNEY FAILURE, UNSPECIFIED (2) CHF (congestive heart failure) Code(s): I50.9 - HEART FAILURE, UNSPECIFIED Qualifiers: Heart failure type: unspecified Heart failure chronicity: acute on chronic Qualified Code(s): I50.9 - Heart failure, unspecified (3) Pancytopenia Code(s): D61.818 - OTHER PANCYTOPENIA (4) Acute renal failure (ARF) Code(s): N17.9 - ACUTE KIDNEY FAILURE, UNSPECIFIED (5) Altered mental status Code(s): R41.82 - ALTERED MENTAL STATUS, UNSPECIFIED Qualifiers: Altered mental status type: disorientation Qualified Code(s): R41.0 - Disorientation, unspecified (6) Anemia Code(s): D64.9 - ANEMIA, UNSPECIFIED (7) COPD (chronic obstructive pulmonary disease) Code(s): J44.9 - CHRONIC OBSTRUCTIVE PULMONARY DISEASE, UNSPECIFIED (8) Chronic systolic congestive heart failure Code(s): I50.22 - CHRONIC SYSTOLIC (CONGESTIVE) HEART FAILURE (9) Cirrhosis of liver Code(s): K74.60 - UNSPECIFIED CIRRHOSIS OF LIVER (10) Esophageal varices Code(s): I85.00 - ESOPHAGEAL VARICES WITHOUT BLEEDING (11) Hepatic encephalopathy Code(s): K72.90 - HEPATIC FAILURE, UNSPECIFIED WITHOUT COMA (12) Hypoxia Code(s): R09.02 - HYPOXEMIA (13) Acute on chronic respiratory failure with hypoxia and hypercapnia Code(s): J96.21 - ACUTE AND CHRONIC RESPIRATORY FAILURE WITH HYPOXIA; J96.22 - ACUTE AND CHRONIC RESPIRATORY FAILURE WITH HYPERCAPNIA Assessment/Plan CONSULTATION DICTATED 05/08/19 IMP DYSPNEA CHF IMPROVING ACUTE ON CHRONIC HYPOXEMIC/HYPERCAPNEIC RESPIRATORY FAILURE IMPROVED VOLUME OVERLOAD IMPROVING ASCITES COPD O2 DEPENDENT PLEURAL EFFUSION HEPATIC ENCEPHALOPATHY DM CIRRHOSIS WITH ESOPHAGEAL VARICES S/P BANDING PANCYTOPENIA SLOWLY IMPROVING SOPHIE H/O ETOH PLAN CONTINUE DIURETICS CARDIAC MEDS PER CARDIOLOGY O2 DAILY WTS MONITOR LYTES,RENAL FUNCTION MONITOR H+H LACTULOSE AMMONIA LEVEL DR COLLAZO Problem List - Problems (1) SOPHIE (acute kidney injury) Code(s): N17.9 - ACUTE KIDNEY FAILURE, UNSPECIFIED (2) CHF (congestive heart failure) Code(s): I50.9 - HEART FAILURE, UNSPECIFIED Qualifiers: Heart failure type: unspecified Heart failure chronicity: acute on chronic Qualified Code(s): I50.9 - Heart failure, unspecified (3) Pancytopenia Code(s): D61.818 - OTHER PANCYTOPENIA (4) Acute renal failure (ARF) Code(s): N17.9 - ACUTE KIDNEY FAILURE, UNSPECIFIED (5) Altered mental status Code(s): R41.82 - ALTERED MENTAL STATUS, UNSPECIFIED Qualifiers: Altered mental status type: disorientation Qualified Code(s): R41.0 - Disorientation, unspecified (6) Anemia Code(s): D64.9 - ANEMIA, UNSPECIFIED (7) COPD (chronic obstructive pulmonary disease) Code(s): J44.9 - CHRONIC OBSTRUCTIVE PULMONARY DISEASE, UNSPECIFIED (8) Chronic systolic congestive heart failure Code(s): I50.22 - CHRONIC SYSTOLIC (CONGESTIVE) HEART FAILURE (9) Cirrhosis of liver Code(s): K74.60 - UNSPECIFIED CIRRHOSIS OF LIVER (10) Esophageal varices Code(s): I85.00 - ESOPHAGEAL VARICES WITHOUT BLEEDING (11) Hepatic encephalopathy Code(s): K72.90 - HEPATIC FAILURE, UNSPECIFIED WITHOUT COMA (12) Hypoxia Code(s): R09.02 - HYPOXEMIA (13) Acute on chronic respiratory failure with hypoxia and hypercapnia Code(s): J96.21 - ACUTE AND CHRONIC RESPIRATORY FAILURE WITH HYPOXIA; J96.22 - ACUTE AND CHRONIC RESPIRATORY FAILURE WITH HYPERCAPNIA
--- NOTE | 2019-06-13 12:10 | PN ---
Progress Note, Physician Chief Complaint: patient in bed non verbal lethargic per staff not swallowing medications keeping in mouth - Current Medication List Current Medications: Active Medications Albuterol Sulfate (Ventolin 0.083% Nebulizer Soln -) 1 amp NEB Q6H PRN PRN Reason: SHORT OF BREATH/WHEEZING Artificial Tears (Artificial Tears) 1 drop OU Q12H PRN PRN Reason: DRY EYES Last Admin: 06/08/19 21:25 Dose: 1 drop Furosemide (Lasix Injection -) 100 mg IVPB BID@0600,1400 [facility] Last Admin: 06/13/19 06:05 Dose: 100 mg Insulin Aspart (Novolog Vial Sliding Scale -) 1 vial SQ ACHS [facility]; Protocol Last Admin: 06/13/19 06:15 Dose: Not Given Lactic Acid (Lac-Hydrin 12) 1 applic TP BID [facility] Last Admin: 06/13/19 11:04 Dose: 1 applic Lactulose (Cephulac (Oral Use)) 20 gm PO Q6HPO [facility] Last Admin: 06/13/19 06:05 Dose: 20 gm Metoprolol Tartrate (Lopressor -) 100 mg PO BID [facility] Last Admin: 06/13/19 11:05 Dose: Not Given Nitroglycerin (Nitrostat -) 0.4 mg SL Q5M PRN PRN Reason: FOR CHEST PAIN Last Admin: 06/09/19 02:05 Dose: 0.4 mg Polyethylene Glycol (Miralax (For Daily Use) -) 17 gm PO BID [facility] Last Admin: 06/13/19 11:05 Dose: Not Given Tamsulosin HCl (Flomax -) 0.4 mg PO DAILY@0830 [facility] Last Admin: 06/13/19 08:00 Dose: Not Given - Objective Vital Signs: Vital Signs Temperature 97.9 F 06/13/19 08:01 Pulse Rate 90 06/13/19 08:01 Respiratory Rate 18 06/13/19 08:01 Blood Pressure 134/70 06/13/19 08:01 O2 Sat by Pulse Oximetry (%) 97 06/12/19 21:00 Constitutional: Yes: No Distress Cardiovascular: Yes: Regular Rate and Rhythm, S1, S2 Respiratory: Yes: Diminished, Rhonchi Gastrointestinal: Yes: Normal Bowel Sounds, Soft Edema: Yes Neurological: Yes: Confusion Labs: CBC, BMP 06/13/19 06:00 06/13/19 06:00 INR, PTT INR 1.30 (0.83-1.09) H 05/27/19 11:05 Problem List - Problems (1) Change in mental status Assessment/Plan: check ammonia level NPO or corinna as patient holding medication in mouth neurology lactulose is QID Code(s): R41.82 - ALTERED MENTAL STATUS, UNSPECIFIED (2) Cirrhosis of liver Assessment/Plan: aldactone ,nadolol,rifaximin, ultrasound shows liver mass in left lobe lactulose dose icnrease dcheck ammonia level Code(s): K74.60 - UNSPECIFIED CIRRHOSIS OF LIVER (3) CHF (congestive heart failure) Assessment/Plan: iv lasix dose increase to 60mg bid to 100mg bid albumin completed echo left ventricle systolic function is severly reduced chest ct show right side pleural effusion more than left side pleural effusion Code(s): I50.9 - HEART FAILURE, UNSPECIFIED Qualifiers: Heart failure type: unspecified Heart failure chronicity: acute on chronic Qualified Code(s): I50.9 - Heart failure, unspecified (4) Ascites Assessment/Plan: continue with lasix and now on metalozone and aldactone improving with increased dose of iv lasix 60mg bid to 100mg iv bid Code(s): R18.8 - OTHER ASCITES (5) Type II diabetes mellitus, uncontrolled Assessment/Plan: will dc levemir as patient not eating and NPO bgm and sliding scale Code(s): E11.65 - TYPE 2 DIABETES MELLITUS WITH HYPERGLYCEMIA (6) Acquired thrombocytopenia Assessment/Plan: secondary to cirrhosis/hyperslenism platelet count is better now 93 continue to monitor Code(s): D69.59 - OTHER SECONDARY THROMBOCYTOPENIA (7) Afib Assessment/Plan: on AC bc of coagulopathy and liver disease metoprolol 50mg po bid Code(s): I48.91 - UNSPECIFIED ATRIAL FIBRILLATION
--- NOTE | 2019-06-13 12:46 | PN ---
Progress Note, Physician Chief Complaint: Fluid overload History of Present Illness: 74 y/o M with a history of NIDDM, 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 + orthopnea. Noted to have pancytopenia, ascites, coagulopathy, and elevated troponin. Echo 05/29/19 glob HK ef 35-40 mild RVHK mod mr mod-sev TR. Had pafib. His is not on AC or antiplatlets due to coagulopathy and liver disease 06/08/19 abrupt onset of tachycardia. narrow complex, regular rhythm at 125-130 BPM. ECG interpreted as sinus tachycardia. But it is likely atrial tachycardia. However, the voltage of the repeat 12-lead ECG is very low and unable to tell the axis of P wave in the inferior lead. Received IV Metoprolol with little improvement. - Current Medication List Current Medications: Active Medications Albuterol Sulfate (Ventolin 0.083% Nebulizer Soln -) 1 amp NEB Q6H PRN PRN Reason: SHORT OF BREATH/WHEEZING Artificial Tears (Artificial Tears) 1 drop OU Q12H PRN PRN Reason: DRY EYES Last Admin: 06/08/19 21:25 Dose: 1 drop Furosemide (Lasix Injection -) 100 mg IVPB BID@0600,1400 [facility] Last Admin: 06/13/19 06:05 Dose: 100 mg Insulin Aspart (Novolog Vial Sliding Scale -) 1 vial SQ ACHS [facility]; Protocol Last Admin: 06/13/19 12:40 Dose: Not Given Lactic Acid (Lac-Hydrin 12) 1 applic TP BID [facility] Last Admin: 06/13/19 11:04 Dose: 1 applic Lactulose (Cephulac (Oral Use)) 20 gm PO Q6HPO [facility] Last Admin: 06/13/19 12:23 Dose: Not Given Lactulose (Cephulac (Rectal Use)) 200 gm OK TID [facility] Metoprolol Tartrate (Lopressor -) 100 mg PO BID [facility] Last Admin: 06/13/19 11:05 Dose: Not Given Nitroglycerin (Nitrostat -) 0.4 mg SL Q5M PRN PRN Reason: FOR CHEST PAIN Last Admin: 06/09/19 02:05 Dose: 0.4 mg Polyethylene Glycol (Miralax (For Daily Use) -) 17 gm PO BID [facility] Last Admin: 06/13/19 11:05 Dose: Not Given Tamsulosin HCl (Flomax -) 0.4 mg PO DAILY@0830 [facility] Last Admin: 06/13/19 08:00 Dose: Not Given - Objective Vital Signs: Vital Signs Temperature 97.9 F 06/13/19 08:01 Pulse Rate 90 06/13/19 08:01 Respiratory Rate 18 06/13/19 08:01 Blood Pressure 134/70 06/13/19 08:01 O2 Sat by Pulse Oximetry (%) 97 06/12/19 21:00 Constitutional: Yes: No Distress, Calm HENT: Yes: WNL, Atraumatic, Normocephalic Neck: Yes: WNL, Supple, Trachea Midline Cardiovascular: Yes: Regular Rate and Rhythm, Murmur, S1, S2 Respiratory: Yes: Other (poor inspiratory effort, decreased breath sounds at bases) Gastrointestinal: Yes: Normal Bowel Sounds, Soft, Ascites ...Rectal Exam: Yes: Deferred Edema: Yes Edema: LLE: 1+, RLE: 1+ Peripheral Pulses WNL: No Peripheral Pulses: Left Radial: 1+, Right Radial: 1+, Left Doralis Pedis: 1+, Right Dorsalis Pedis: 1+, Left Femoral: 1+, Right Femoral: 1+ Neurological: Yes: Confusion, Lethargy, Unresponsive Labs: CBC, BMP 06/13/19 06:00 06/13/19 06:00 INR, PTT INR 1.30 (0.83-1.09) H 05/27/19 11:05 Assessment/Plan 74 y/o M with a history of NIDDM, 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 + orthopnea. Noted to have pancytopenia, ascites, coagulopathy, and elevated troponin. Echo 05/29/19 glob HK ef 35-40 mild RVHK mod mr mod-sev TR. Had pafib. His is not on AC or antiplatlets due to coagulopathy and liver disease 06/08/19 abrupt onset of tachycardia. narrow complex, regular rhythm at 125-130 BPM. ECG interpreted as sinus tachycardia. But it is likely atrial tachycardia. However, the voltage of the repeat 12-lead ECG is very low and unable to tell the axis of P wave in the inferior lead. Received IV Metoprolol with little improvement. The patient is confused Not following commands this afternoon.Remains hemodynamically stable and fluid overloaded. Please continue current regimen. consider Zaroxolyn prior to Lasix doses. No need for further cardiac workup at this point. May stop telemetry. The patient has been in sinus rhythm. Poor prognosis. Please do not hesitate to call us PRN
--- NOTE | 2019-06-13 13:55 | CONSULT ---
Consult - text type - Consultation Consultation Note: NEUROLOGY CONSULT GREATLY APPRECIATED: Events reviewed and discussed with YONI Lee. Patient examined with his family at the bedside. This 74 yo man with PMHX CHF, COPD, Liver cirrhosis with esophageal varices, DM , H/O ETOH, coagulopathy. Initially admitted to due dyspnea and treated for fluid overload with IV diuretics on 05/27/19. D/C planning done on 06/07/19, however patient C/O SOB and found on EKG with new onset tachycardia, possibly PAF vs. atrial tachycardia. Given IV metoprolol with little effect and not on AC secondary to coagulopathy. ' Found with worsening confusional state on the and now today less responsive than usual and not able to swallow pills. Ammonia remains elevated >130 mg% since admission, despite both oral and now rectal lactulose. Per records, pt still with BMs and making urine. WBC= 6.4K; platelets= 89; TSH= 1.26; B12= 905 pg%; BNP= 4235; BUN/CR 40/1.3-> 100/2.0; Ammonia ~ 137; UA 05/27 neg YEIMI: Morbidly obese. Afebrile. Neck supple. Large purpura to arms. Profuse edema in all extremities. On O2 via N/C. Occasional dry cough. NEURO: Awake, staring, speech sparse, dysarthric . Follows rare commands. Tolerating PO by family. CNII-CNXII: Full blink to threat. Full EOM's to Doll's Eyes. [id number]. Corneals +/+. Reduced rapid tongue and gag. Motor: No obvious drift or tremor. Reflexes brisk in arms, but arreflexic in legs. Plantars silent. + asterixis Sensation: Reduced pinch in all fours. Impression: Non-focal exam sig for moderately severe, B/L cerebral dysfunction. Worsening level of consciousness which can be on basis of Toxic- Metabolic Encephalopathy (i.e infection, hepatic encephalopathy, CO2 retention. ) Suggest: Repeat Chest Xray, ABG, UA/C/S. Monitor urine output and consider Steward. Continue lactulose, hydration and supportive care Prognosis guarded. Thank you very much, Coleman Bonner MD
[2019-06-13] MEDS ORDERED: LACTULOSE 20 GM/30 ML UDC (FOR RECTAL USE ONLY) PR SCH ×3 (14:00)
[2019-06-13] MEDS ORDERED: METOLAZONE 2.5 MG TABLET (FP) PO SCH (14:00)
[2019-06-13] MEDS ORDERED: FUROSEMIDE 40 MG/4 ML INJECTABLE VIAL IVPUSH ONE (15:31)
--- NOTE | 2019-06-13 15:34 | PN ---
Progress Note (short form) - Note Progress Note: Renal follow up for SOPHIE/CKD Seen and examined at the bedside gorggy but arouseable no overnight events family at the bedside, requesting sequential compression stockings Vital Signs Temperature 97.9 F 06/13/19 08:01 Pulse Rate 90 06/13/19 08:01 Respiratory Rate 18 06/13/19 08:01 Blood Pressure 134/70 06/13/19 08:01 O2 Sat by Pulse Oximetry (%) 97 06/12/19 21:00 Intake & Output 06/10/19 06/11/19 06/12/19 06/13/19 23:59 23:59 23:59 23:59 Intake Total 1200 550 587 160 Output Total 400 Balance 800 550 587 160 Weight 132.177 kg NAD awake and alert neck supple RRR Dec BS + abd ascities + LE edema CBC, BMP 06/13/19 06:00 06/13/19 06:00 Current Medications Albuterol Sulfate (Ventolin 0.083% Nebulizer Soln -) 1 amp NEB Q6H PRN PRN Reason: SHORT OF BREATH/WHEEZING Artificial Tears (Artificial Tears) 1 drop OU Q12H PRN PRN Reason: DRY EYES Last Admin: 06/08/19 21:25 Dose: 1 drop Furosemide (Lasix Injection -) 120 mg IVPB BID@0600,1400 [facility] Furosemide (Lasix Injection -) 20 mg IVPUSH ONCE ONE Stop: 06/13/19 15:32 Insulin Aspart (Novolog Vial Sliding Scale -) 1 vial SQ ACHS [facility]; Protocol Last Admin: 06/13/19 12:40 Dose: Not Given Lactic Acid (Lac-Hydrin 12) 1 applic TP BID [facility] Last Admin: 06/13/19 11:04 Dose: 1 applic Lactulose (Cephulac (Oral Use)) 20 gm PO Q6HPO [facility] Last Admin: 06/13/19 12:23 Dose: Not Given Lactulose (Cephulac (Rectal Use)) 200 gm DE TID [facility] Metolazone (Zaroxolyn -) 5 mg PO 1330 [facility] Last Admin: 06/13/19 14:05 Dose: Not Given Metoprolol Tartrate (Lopressor -) 100 mg PO BID [facility] Last Admin: 06/13/19 11:05 Dose: Not Given Nitroglycerin (Nitrostat -) 0.4 mg SL Q5M PRN PRN Reason: FOR CHEST PAIN Last Admin: 06/09/19 02:05 Dose: 0.4 mg Polyethylene Glycol (Miralax (For Daily Use) -) 17 gm PO BID [facility] Last Admin: 06/13/19 11:05 Dose: Not Given Tamsulosin HCl (Flomax -) 0.4 mg PO DAILY@0830 [facility] Last Admin: 06/13/19 08:00 Dose: Not Given 74 year old gentleman with history of Alcoholic cirrhosis, hypertension, CHF presented with shortness of breath and increased abdominal girth and admitted for worsening ascities. 1. SOPHIE 2. Alcoholic cirrhosis with ascities 3. Anemia 4. Leukopenia/thrombocytopenia 5. CHF with volume overload 6. Hypertension 7. Mild hyperkalemia Renal function essentialy stable, BUN rising Weights without any signifincat change up to this point, will increase Lasix to 120mg PO BID pt made NPO secondary to aspiration risk, can consider additional of Metolazone once her can take PO meds again Ammonia levels remain elevated and pt continues to be lethagic likely related to hepatic encepholpathy continue Lactulose per rectum Check CXR in AM trend renal function and electrolytes Titrate lactulose to 2-3 BM's daily (increased to Q6h) overall prognosis is guarded Ang Sanchez DO
--- NOTE | 2019-06-13 16:23 | PN ---
Progress Note (short form) - Note Progress Note: spoke to family at bedside all questions answered left a message with Dr bob blake office assistant at [facility] lasix increased to 120mg iv bid ammonia level noted lactulose rectal ordered compression stocking ordered Problem List - Problems (1) Change in mental status Code(s): R41.82 - ALTERED MENTAL STATUS, UNSPECIFIED (2) Cirrhosis of liver Code(s): K74.60 - UNSPECIFIED CIRRHOSIS OF LIVER (3) CHF (congestive heart failure) Code(s): I50.9 - HEART FAILURE, UNSPECIFIED Qualifiers: Heart failure type: unspecified Heart failure chronicity: acute on chronic Qualified Code(s): I50.9 - Heart failure, unspecified (4) Ascites Code(s): R18.8 - OTHER ASCITES (5) Type II diabetes mellitus, uncontrolled Code(s): E11.65 - TYPE 2 DIABETES MELLITUS WITH HYPERGLYCEMIA (6) Acquired thrombocytopenia Code(s): D69.59 - OTHER SECONDARY THROMBOCYTOPENIA (7) Afib Code(s): I48.91 - UNSPECIFIED ATRIAL FIBRILLATION
--- NOTE | 2019-06-13 16:33 | PN ---
Progress Note (short form) - Note Progress Note: patient is more awake and alert right now and talking to family memebers and is hungry wants food mental status is better than it was in the AM will give him dysphagia pureed with nectar thick liquids Problem List - Problems (1) Change in mental status Code(s): R41.82 - ALTERED MENTAL STATUS, UNSPECIFIED (2) Cirrhosis of liver Code(s): K74.60 - UNSPECIFIED CIRRHOSIS OF LIVER (3) CHF (congestive heart failure) Code(s): I50.9 - HEART FAILURE, UNSPECIFIED Qualifiers: Heart failure type: unspecified Heart failure chronicity: acute on chronic Qualified Code(s): I50.9 - Heart failure, unspecified (4) Ascites Code(s): R18.8 - OTHER ASCITES (5) Type II diabetes mellitus, uncontrolled Code(s): E11.65 - TYPE 2 DIABETES MELLITUS WITH HYPERGLYCEMIA (6) Acquired thrombocytopenia Code(s): D69.59 - OTHER SECONDARY THROMBOCYTOPENIA (7) Afib Code(s): I48.91 - UNSPECIFIED ATRIAL FIBRILLATION
[2019-06-13] MEDS ORDERED: LACTULOSE 20 GM/30 ML UDC (FOR RECTAL USE ONLY) PR PRN (17:04)
[2019-06-13] MEDS: SPIRONOLACTONE 25 MG TABLET (FP) PO SCH (18:39)
--- NOTE | 2019-06-13 19:23 | PN ---
Progress Note (short form) - Note Progress Note: PAtient seen and examined Confused,weak AFVSS Cor: RSR, No murmurs, No gallops Lungs:decreased at bases Abd: Soft, Normal bowel sounds, No organomegaly Ext:2+ edema A/P 74 y/o M with a history of NIDDM, 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 + orthopnea. Noted to have pancytopenia, ascites, coagulopathy, and elevated troponin. Echo 05/29/19 glob HK ef 35-40 mild RVHK mod mr mod-sev TR. Had pafib CHF SOPHIE--stab;e cirrhosis hepatic encephalopathy right hepatic lobe mass --possible HCC overall poor prognosis palliative care discussions
[2019-06-13] MEDS: RIFAXIMIN 550 MG TABLET (UD) PO SCH (21:57)
[2019-06-13] MEDS ORDERED: HEPARIN NA (PORCINE) 5,000 UNITS/ML 1ML VIAL SQ SCH (22:00)
[2019-06-14] MEDS: LACTULOSE 20 GM/30 ML UDC (FOR ORAL USE ONLY) PO SCH ×6 (00:32→23:46)
--- NOTE | 2019-06-14 06:36 | PN ---
Progress Note, Physician Chief Complaint: SOB Hepatic encephalopathy Ascitis History of Present Illness: More alert now Restarted on dysphagia diet - Current Medication List Current Medications: Active Medications Albuterol Sulfate (Ventolin 0.083% Nebulizer Soln -) 1 amp NEB Q6H PRN PRN Reason: SHORT OF BREATH/WHEEZING Artificial Tears (Artificial Tears) 1 drop OU Q12H PRN PRN Reason: DRY EYES Last Admin: 06/08/19 21:25 Dose: 1 drop Furosemide (Lasix Injection -) 120 mg IVPB BID@0600,1400 [facility] Insulin Aspart (Novolog Vial Sliding Scale -) 1 vial SQ ACHS [facility]; Protocol Last Admin: 06/13/19 21:57 Dose: Not Given Lactic Acid (Lac-Hydrin 12) 1 applic TP BID [facility] Last Admin: 06/13/19 21:57 Dose: 1 applic Lactulose (Cephulac (Oral Use)) 20 gm PO Q6HPO [facility] Last Admin: 06/14/19 00:32 Dose: 20 gm Lactulose (Cephulac (Rectal Use)) 200 gm GA TID PRN PRN Reason: AGITATION Nadolol (Corgard -) 40 mg PO DAILY [facility] Nitroglycerin (Nitrostat -) 0.4 mg SL Q5M PRN PRN Reason: FOR CHEST PAIN Last Admin: 06/09/19 02:05 Dose: 0.4 mg Rifaximin (Xifaxan -) 550 mg PO BID [facility] Last Admin: 06/13/19 21:57 Dose: 550 mg Spironolactone (Aldactone -) 25 mg PO DAILY [facility] Last Admin: 06/13/19 18:39 Dose: 25 mg Tamsulosin HCl (Flomax -) 0.4 mg PO DAILY@0830 [facility] Last Admin: 06/13/19 08:00 Dose: Not Given - Objective Vital Signs: Vital Signs Temperature 98.3 F 06/14/19 01:57 Pulse Rate 97 H 06/14/19 01:57 Respiratory Rate 18 06/14/19 01:57 Blood Pressure 145/72 06/14/19 01:57 O2 Sat by Pulse Oximetry (%) 98 06/13/19 21:00 Constitutional: Yes: Well Nourished, No Distress, Calm, Obese Cardiovascular: Yes: Regular Rate and Rhythm Respiratory: Yes: Regular Gastrointestinal: Yes: WNL, Normal Bowel Sounds, Soft, Abdomen, Obese Musculoskeletal: Yes: Muscle Weakness Extremities: Yes: WNL Edema: No Peripheral Pulses WNL: Yes Neurological: Yes: Alert, Confusion Psychiatric: Yes: Alert Labs: CBC, BMP 06/13/19 06:00 06/13/19 06:00 INR, PTT INR 1.30 (0.83-1.09) H 05/27/19 11:05 Problem List - Problems (1) Hypokalemia Assessment/Plan: -monitor trend -replenish if needed -likely 2/2 to decreased PO intake Problems reviewed: Yes Code(s): E87.6 - HYPOKALEMIA Assessment/Plan (1) SOPHIE (acute kidney injury) Assessment/Plan: -monitor renal function -Nephrology consult Code(s): N17.9 - ACUTE KIDNEY FAILURE, UNSPECIFIED (2) CHF (congestive heart failure) Assessment/Plan: -Cardiology consult -Tele monitoring -IV furosemide + Spironolactone -strict I&Os -daily weights -fluid restriction -CXR shows moderate bilateral pleural effusion with compressive atelectasis, questionable infiltrates Code(s): I50.9 - HEART FAILURE, UNSPECIFIED Qualifiers: Heart failure type: unspecified Heart failure chronicity: acute on chronic Qualified Code(s): I50.9 - Heart failure, unspecified (3) Troponin level elevated Assessment/Plan: -Cardiology consult -tele monitoring -likely 2/2 to demand ischemia Code(s): R79.89 - OTHER SPECIFIED ABNORMAL FINDINGS OF BLOOD CHEMISTRY (4) COPD (chronic obstructive pulmonary disease) Assessment/Plan: -Pulm consult -CXR shows moderate bilateral pleural effusion with compressive atelectasis -O2 via NC -keep SpO2 >90% Code(s): J44.9 - CHRONIC OBSTRUCTIVE PULMONARY DISEASE, UNSPECIFIED (5) Hepatic encephalopathy Assessment/Plan: -Xifaxin -GI consult -Lactulose -Nadolol, Spirinolactone -Monitor Ammonia levels Code(s): K72.90 - HEPATIC FAILURE, UNSPECIFIED WITHOUT COMA (6) Type II diabetes mellitus, uncontrolled Assessment/Plan: -BGM ACHS -ISS -Levemir -HgA1c 5.5 Code(s): E11.65 - TYPE 2 DIABETES MELLITUS WITH HYPERGLYCEMIA (7) Pancytopenia Assessment/Plan: -Hematology consult -Monitor daily labs -Transfuse for Hg<7.0 to avoid fluid overload Code(s): D61.818 - OTHER PANCYTOPENIA
[2019-06-14] MEDS: FUROSEMIDE 40 MG/4 ML INJECTABLE VIAL IVPB SCH ×2 (06:56→13:16)
[2019-06-14] MEDS: INSULIN SLIDING SCALE (NOVOLOG) 1 VIAL SQ SCH ×4 (07:58→21:36)
[2019-06-14] MEDS ORDERED: PT OWN MED DRAWER 7, Y5N ONE ×2 (09:04→21:25)
[2019-06-14 09:10] LABS: ALBUMIN 3.4 g/dl (3.4-5.0); BILIRUBIN,TOTAL 5.7 mg/dL (0.2-1); BLOOD UREA NITROGEN 102.8 mg/dL (7-18); CALCIUM 9.2 mg/dL (8.5-10.1); MAGNESIUM 2.5 mg/dL (1.8-2.4); PHOSPHOROUS 3.7 mg/dL (2.5-4.9); POTASSIUM 3.5 mmol/L (3.5-5.1); TOT PROT 6.4 g/dl (6.4-8.2)
[2019-06-14] MEDS: AMMONIUM LACTATE 12% LOTION 225 GM BOTTLE TP SCH ×2 (09:31→21:42)
[2019-06-14] MEDS: NADOLOL 40 MG TABLET (FP) PO SCH (09:31)
[2019-06-14] MEDS: SPIRONOLACTONE 25 MG TABLET (FP) PO SCH (09:31)
[2019-06-14] MEDS: RIFAXIMIN 550 MG TABLET (UD) PO SCH ×2 (09:31→21:36)
[2019-06-14] MEDS: TAMSULOSIN HCL 0.4 MG CAP PO SCH (09:31)
--- NOTE | 2019-06-14 11:09 | PN ---
Progress Note, Physician History of Present Illness: pulmonary more awake,mildly dyspneic,-resp distress - Current Medication List Current Medications: Active Medications Albuterol Sulfate (Ventolin 0.083% Nebulizer Soln -) 1 amp NEB Q6H PRN PRN Reason: SHORT OF BREATH/WHEEZING Artificial Tears (Artificial Tears) 1 drop OU Q12H PRN PRN Reason: DRY EYES Last Admin: 06/08/19 21:25 Dose: 1 drop Furosemide (Lasix Injection -) 120 mg IVPB BID@0600,1400 [facility] Last Admin: 06/14/19 06:56 Dose: 120 mg Insulin Aspart (Novolog Vial Sliding Scale -) 1 vial SQ ACHS [facility]; Protocol Last Admin: 06/14/19 07:58 Dose: Not Given Lactic Acid (Lac-Hydrin 12) 1 applic TP BID [facility] Last Admin: 06/14/19 09:31 Dose: 1 applic Lactulose (Cephulac (Oral Use)) 20 gm PO Q6HPO [facility] Last Admin: 06/14/19 06:59 Dose: 20 gm Lactulose (Cephulac (Rectal Use)) [address] TID PRN PRN Reason: AGITATION Nadolol (Corgard -) 40 mg PO DAILY [facility] Last Admin: 06/14/19 09:31 Dose: 40 mg Nitroglycerin (Nitrostat -) 0.4 mg SL Q5M PRN PRN Reason: FOR CHEST PAIN Last Admin: 06/09/19 02:05 Dose: 0.4 mg Rifaximin (Xifaxan -) 550 mg PO BID [facility] Last Admin: 06/14/19 09:31 Dose: 550 mg Spironolactone (Aldactone -) 25 mg PO DAILY [facility] Last Admin: 06/14/19 09:31 Dose: 25 mg Tamsulosin HCl (Flomax -) 0.4 mg PO DAILY@0830 [facility] Last Admin: 06/14/19 09:31 Dose: Not Given - Objective Vital Signs: Vital Signs Temperature 97.8 F 06/14/19 06:00 Pulse Rate 113 H 06/14/19 09:32 Respiratory Rate 20 06/14/19 09:32 Blood Pressure 127/75 06/14/19 09:32 O2 Sat by Pulse Oximetry (%) 98 06/13/19 21:00 Constitutional: Yes: Well Nourished, Calm, Obese Eyes: Yes: WNL HENT: Yes: WNL Neck: Yes: WNL Cardiovascular: Yes: Regular Rate and Rhythm, S1, S2 Respiratory: Yes: Diminished Gastrointestinal: Yes: Normal Bowel Sounds, Soft Extremities: Yes: WNL Edema: Yes Labs: CBC, BMP 06/13/19 06:00 06/14/19 08:20 INR, PTT INR 1.30 (0.83-1.09) H 05/27/19 11:05 Laboratory Tests 06/14/19 08:20 Ammonia 99.00 H - ....Imaging Chest X-ray: Report Reviewed, Image Reviewed Problem List - Problems (1) SOPHIE (acute kidney injury) Code(s): N17.9 - ACUTE KIDNEY FAILURE, UNSPECIFIED (2) CHF (congestive heart failure) Code(s): I50.9 - HEART FAILURE, UNSPECIFIED Qualifiers: Heart failure type: unspecified Heart failure chronicity: acute on chronic Qualified Code(s): I50.9 - Heart failure, unspecified (3) Pancytopenia Code(s): D61.818 - OTHER PANCYTOPENIA (4) Acute renal failure (ARF) Code(s): N17.9 - ACUTE KIDNEY FAILURE, UNSPECIFIED (5) Altered mental status Code(s): R41.82 - ALTERED MENTAL STATUS, UNSPECIFIED Qualifiers: Altered mental status type: disorientation Qualified Code(s): R41.0 - Disorientation, unspecified (6) Anemia Code(s): D64.9 - ANEMIA, UNSPECIFIED (7) COPD (chronic obstructive pulmonary disease) Code(s): J44.9 - CHRONIC OBSTRUCTIVE PULMONARY DISEASE, UNSPECIFIED (8) Chronic systolic congestive heart failure Code(s): I50.22 - CHRONIC SYSTOLIC (CONGESTIVE) HEART FAILURE (9) Cirrhosis of liver Code(s): K74.60 - UNSPECIFIED CIRRHOSIS OF LIVER (10) Esophageal varices Code(s): I85.00 - ESOPHAGEAL VARICES WITHOUT BLEEDING (11) Hepatic encephalopathy Code(s): K72.90 - HEPATIC FAILURE, UNSPECIFIED WITHOUT COMA (12) Hypoxia Code(s): R09.02 - HYPOXEMIA (13) Acute on chronic respiratory failure with hypoxia and hypercapnia Code(s): J96.21 - ACUTE AND CHRONIC RESPIRATORY FAILURE WITH HYPOXIA; J96.22 - ACUTE AND CHRONIC RESPIRATORY FAILURE WITH HYPERCAPNIA Assessment/Plan CONSULTATION DICTATED 05/08/19 IMP DYSPNEA CHF IMPROVING ACUTE ON CHRONIC HYPOXEMIC/HYPERCAPNEIC RESPIRATORY FAILURE IMPROVING VOLUME OVERLOAD IMPROVING ASCITES COPD O2 DEPENDENT PLEURAL EFFUSION HEPATIC ENCEPHALOPATHY DM CIRRHOSIS WITH ESOPHAGEAL VARICES S/P BANDING PANCYTOPENIA SLOWLY IMPROVING SOPHIE H/O ETOH PLAN DIURETICS CARDIAC MEDS PER CARDIOLOGY O2 DAILY WTS MONITOR LYTES,RENAL FUNCTION MONITOR H+H LACTULOSE FOLLOW AMMONIA LEVEL DR COLLAZO Problem List - Problems (1) SOPHIE (acute kidney injury) Code(s): N17.9 - ACUTE KIDNEY FAILURE, UNSPECIFIED (2) CHF (congestive heart failure) Code(s): I50.9 - HEART FAILURE, UNSPECIFIED Qualifiers: Heart failure type: unspecified Heart failure chronicity: acute on chronic Qualified Code(s): I50.9 - Heart failure, unspecified (3) Pancytopenia Code(s): D61.818 - OTHER PANCYTOPENIA (4) Acute renal failure (ARF) Code(s): N17.9 - ACUTE KIDNEY FAILURE, UNSPECIFIED (5) Altered mental status Code(s): R41.82 - ALTERED MENTAL STATUS, UNSPECIFIED Qualifiers: Altered mental status type: disorientation Qualified Code(s): R41.0 - Disorientation, unspecified (6) Anemia Code(s): D64.9 - ANEMIA, UNSPECIFIED (7) COPD (chronic obstructive pulmonary disease) Code(s): J44.9 - CHRONIC OBSTRUCTIVE PULMONARY DISEASE, UNSPECIFIED (8) Chronic systolic congestive heart failure Code(s): I50.22 - CHRONIC SYSTOLIC (CONGESTIVE) HEART FAILURE (9) Cirrhosis of liver Code(s): K74.60 - UNSPECIFIED CIRRHOSIS OF LIVER (10) Esophageal varices Code(s): I85.00 - ESOPHAGEAL VARICES WITHOUT BLEEDING (11) Hepatic encephalopathy Code(s): K72.90 - HEPATIC FAILURE, UNSPECIFIED WITHOUT COMA (12) Hypoxia Code(s): R09.02 - HYPOXEMIA (13) Acute on chronic respiratory failure with hypoxia and hypercapnia Code(s): J96.21 - ACUTE AND CHRONIC RESPIRATORY FAILURE WITH HYPOXIA; J96.22 - ACUTE AND CHRONIC RESPIRATORY FAILURE WITH HYPERCAPNIA
--- NOTE | 2019-06-14 15:35 | PN ---
Progress Note, Physician History of Present Illness: Pt seen and examined at bedside. he was started on a diet. he is more awake today. - Current Medication List Current Medications: Active Medications Albuterol Sulfate (Ventolin 0.083% Nebulizer Soln -) 1 amp NEB Q6H PRN PRN Reason: SHORT OF BREATH/WHEEZING Artificial Tears (Artificial Tears) 1 drop OU Q12H PRN PRN Reason: DRY EYES Last Admin: 06/08/19 21:25 Dose: 1 drop Furosemide (Lasix Injection -) 120 mg IVPB BID@0600,1400 [facility] Last Admin: 06/14/19 13:16 Dose: 120 mg Insulin Aspart (Novolog Vial Sliding Scale -) 1 vial SQ ACHS [facility]; Protocol Last Admin: 06/14/19 12:03 Dose: Not Given Lactic Acid (Lac-Hydrin 12) 1 applic TP BID [facility] Last Admin: 06/14/19 09:31 Dose: 1 applic Lactulose (Cephulac (Oral Use)) 20 gm PO Q6HPO [facility] Last Admin: 06/14/19 12:45 Dose: Not Given Lactulose (Cephulac (Rectal Use)) 200 gm ID TID PRN PRN Reason: AGITATION Nadolol (Corgard -) 40 mg PO DAILY [facility] Last Admin: 06/14/19 09:31 Dose: 40 mg Nitroglycerin (Nitrostat -) 0.4 mg SL Q5M PRN PRN Reason: FOR CHEST PAIN Last Admin: 06/09/19 02:05 Dose: 0.4 mg Rifaximin (Xifaxan -) 550 mg PO BID [facility] Last Admin: 06/14/19 09:31 Dose: 550 mg Spironolactone (Aldactone -) 25 mg PO DAILY [facility] Last Admin: 06/14/19 09:31 Dose: 25 mg Tamsulosin HCl (Flomax -) 0.4 mg PO DAILY@0830 [facility] Last Admin: 06/14/19 09:31 Dose: Not Given - Objective Vital Signs: Vital Signs Temperature 98.5 F 06/14/19 14:17 Pulse Rate 97 H 06/14/19 14:17 Respiratory Rate 18 06/14/19 14:17 Blood Pressure 135/63 06/14/19 14:17 O2 Sat by Pulse Oximetry (%) 98 06/13/19 21:00 Constitutional: Yes: Calm HENT: Yes: Atraumatic Cardiovascular: Yes: S1, S2 Respiratory: Yes: On Nasal O2 Gastrointestinal: Yes: Abdomen, Obese, Ascites Genitourinary: Yes: Incontinence Musculoskeletal: Yes: Muscle Weakness Edema: Yes Edema: LLE: 2+, RLE: 2+ Integumentary: Yes: Venous Stasis Changes Neurological: Yes: Confusion Labs: CBC, BMP 06/13/19 06:00 06/14/19 08:20 INR, PTT INR 1.30 (0.83-1.09) H 05/27/19 11:05 - ....Imaging Chest X-ray: Report Reviewed Assessment/Plan Current Medications Generic Name Dose Route Start Last Admin Trade Name Freq PRN Reason Stop Dose Admin Albuterol Sulfate 1 amp 06/12/19 10:51 Ventolin 0.083% Nebulizer Soln - NEB Q6H PRN SHORT OF BREATH/WHEEZING Artificial Tears 1 drop 06/08/19 20:35 06/08/19 21:25 Artificial Tears OU 1 drop Q12H PRN Administration DRY EYES Furosemide 120 mg 06/13/19 14:51 06/14/19 13:16 Lasix Injection - IVPB 120 mg BID@0600,1400 [facility] Administration Insulin Aspart 1 vial 05/27/19 17:31 06/14/19 12:03 Novolog Vial Sliding Scale - SQ Not Given ACHS [facility] Protocol Lactic Acid 1 applic 06/02/19 16:52 06/14/19 09:31 Lac-Hydrin 12 TP 1 applic BID [facility] Administration Lactulose 20 gm 06/12/19 15:00 06/14/19 12:45 Cephulac (Oral Use) PO Not Given Q6HPO [facility] Lactulose 200 gm 06/13/19 17:04 Cephulac (Rectal Use) ID TID PRN AGITATION Nadolol 40 mg 06/14/19 10:00 06/14/19 09:31 Corgard - PO 40 mg DAILY [facility] Administration Nitroglycerin 0.4 mg 06/08/19 18:49 06/09/19 02:05 Nitrostat - SL 0.4 mg Q5M PRN Administration FOR CHEST PAIN Rifaximin 550 mg 06/13/19 22:00 06/14/19 09:31 Xifaxan - PO 550 mg BID [facility] Administration Spironolactone 25 mg 06/13/19 17:45 06/14/19 09:31 Aldactone - PO 25 mg DAILY [facility] Administration Tamsulosin HCl 0.4 mg 05/28/19 08:30 06/14/19 09:31 Flomax - PO Not Given DAILY@0830 [facility] 1. SOPHIE 2. Alcoholic cirrhosis with ascities 3. Anemia 4. Leukopenia/thrombocytopenia 5. CHF with volume overload 6. Hypertension 7. Mild hyperkalemia Plan - renal function not changed much - cont diuretics - monitor mental status - cxr with congestive changes - cont lactulose - monitor lytes - overall prognosis is guarded
[2019-06-14] MEDS: ACETAMINOPHEN 325 MG TABLET (FP) PO PRN (22:21)
[2019-06-15] MEDS: FUROSEMIDE 40 MG/4 ML INJECTABLE VIAL IVPB SCH ×2 (06:10→13:16)
[2019-06-15] MEDS: LACTULOSE 20 GM/30 ML UDC (FOR ORAL USE ONLY) PO SCH ×4 (06:10→23:55)
[2019-06-15] MEDS: INSULIN SLIDING SCALE (NOVOLOG) 1 VIAL SQ SCH ×4 (06:21→21:50)
--- NOTE | 2019-06-15 09:38 | PN ---
Progress Note, Physician History of Present Illness: pulmonary more awake,comfortable,-resp distress - Current Medication List Current Medications: Active Medications Acetaminophen (Tylenol -) 650 mg PO Q6H PRN PRN Reason: PAIN LEVEL 1-5 Last Admin: 06/14/19 22:21 Dose: 650 mg Albuterol Sulfate (Ventolin 0.083% Nebulizer Soln -) 1 amp NEB Q6H PRN PRN Reason: SHORT OF BREATH/WHEEZING Artificial Tears (Artificial Tears) 1 drop OU Q12H PRN PRN Reason: DRY EYES Last Admin: 06/08/19 21:25 Dose: 1 drop Furosemide (Lasix Injection -) 120 mg IVPB BID@0600,1400 [facility] Last Admin: 06/15/19 06:10 Dose: 120 mg Insulin Aspart (Novolog Vial Sliding Scale -) 1 vial SQ ACHS [facility]; Protocol Last Admin: 06/15/19 06:21 Dose: 2 units Lactic Acid (Lac-Hydrin 12) 1 applic TP BID [facility] Last Admin: 06/14/19 21:42 Dose: 1 applic Lactulose (Cephulac (Oral Use)) 20 gm PO Q6HPO [facility] Last Admin: 06/15/19 06:10 Dose: 20 gm Lactulose (Cephulac (Rectal Use)) 200 gm [place] TID PRN PRN Reason: AGITATION Nadolol (Corgard -) 40 mg PO DAILY [facility] Last Admin: 06/14/19 09:31 Dose: 40 mg Nitroglycerin (Nitrostat -) 0.4 mg SL Q5M PRN PRN Reason: FOR CHEST PAIN Last Admin: 06/09/19 02:05 Dose: 0.4 mg Rifaximin (Xifaxan -) 550 mg PO BID [facility] Last Admin: 06/14/19 21:36 Dose: 550 mg Spironolactone (Aldactone -) 25 mg PO DAILY [facility] Last Admin: 06/14/19 09:31 Dose: 25 mg Tamsulosin HCl (Flomax -) 0.4 mg PO DAILY@0830 [facility] Last Admin: 06/14/19 09:31 Dose: Not Given - Objective Vital Signs: Vital Signs Temperature 97.8 F 06/15/19 05:15 Pulse Rate 91 H 06/15/19 05:15 Respiratory Rate 20 06/15/19 05:15 Blood Pressure 150/79 06/15/19 05:15 O2 Sat by Pulse Oximetry (%) 97 06/14/19 21:50 Constitutional: Yes: Obese Eyes: Yes: WNL HENT: Yes: WNL Cardiovascular: Yes: Regular Rate and Rhythm, S1, S2 Respiratory: Yes: Diminished Gastrointestinal: Yes: Normal Bowel Sounds, Soft Extremities: Yes: WNL Edema: Yes Labs: CBC, BMP Problem List - Problems (1) SOPHIE (acute kidney injury) Code(s): N17.9 - ACUTE KIDNEY FAILURE, UNSPECIFIED (2) CHF (congestive heart failure) Code(s): I50.9 - HEART FAILURE, UNSPECIFIED Qualifiers: Heart failure type: unspecified Heart failure chronicity: acute on chronic Qualified Code(s): I50.9 - Heart failure, unspecified (3) Pancytopenia Code(s): D61.818 - OTHER PANCYTOPENIA (4) Acute renal failure (ARF) Code(s): N17.9 - ACUTE KIDNEY FAILURE, UNSPECIFIED (5) Altered mental status Code(s): R41.82 - ALTERED MENTAL STATUS, UNSPECIFIED Qualifiers: Altered mental status type: disorientation Qualified Code(s): R41.0 - Disorientation, unspecified (6) Anemia Code(s): D64.9 - ANEMIA, UNSPECIFIED (7) COPD (chronic obstructive pulmonary disease) Code(s): J44.9 - CHRONIC OBSTRUCTIVE PULMONARY DISEASE, UNSPECIFIED (8) Chronic systolic congestive heart failure Code(s): I50.22 - CHRONIC SYSTOLIC (CONGESTIVE) HEART FAILURE (9) Cirrhosis of liver Code(s): K74.60 - UNSPECIFIED CIRRHOSIS OF LIVER (10) Esophageal varices Code(s): I85.00 - ESOPHAGEAL VARICES WITHOUT BLEEDING (11) Hepatic encephalopathy Code(s): K72.90 - HEPATIC FAILURE, UNSPECIFIED WITHOUT COMA (12) Hypoxia Code(s): R09.02 - HYPOXEMIA (13) Acute on chronic respiratory failure with hypoxia and hypercapnia Code(s): J96.21 - ACUTE AND CHRONIC RESPIRATORY FAILURE WITH HYPOXIA; J96.22 - ACUTE AND CHRONIC RESPIRATORY FAILURE WITH HYPERCAPNIA Assessment/Plan CONSULTATION DICTATED 05/08/19 IMP DYSPNEA improving CHF IMPROVING ACUTE ON CHRONIC HYPOXEMIC/HYPERCAPNEIC RESPIRATORY FAILURE IMPROVING VOLUME OVERLOAD IMPROVING ASCITES COPD O2 DEPENDENT PLEURAL EFFUSION HEPATIC ENCEPHALOPATHY DM CIRRHOSIS WITH ESOPHAGEAL VARICES S/P BANDING PANCYTOPENIA SLOWLY IMPROVING SOPHIE H/O ETOH PLAN DIURETICS CARDIAC MEDS PER CARDIOLOGY O2 DAILY WTS MONITOR LYTES,RENAL FUNCTION MONITOR H+H LACTULOSE FOLLOW [place]MON[facility] LEVEL DR COLLAZO Problem List - Problems (1) SOPHIE (acute kidney injury) Code(s): N17.9 - ACUTE KIDNEY FAILURE, UNSPECIFIED (2) CHF (congestive heart failure) Code(s): I50.9 - HEART FAILURE, UNSPECIFIED Qualifiers: Heart failure type: unspecified Heart failure chronicity: acute on chronic Qualified Code(s): I50.9 - Heart failure, unspecified (3) Pancytopenia Code(s): D61.818 - OTHER PANCYTOPENIA (4) Acute renal failure (ARF) Code(s): N17.9 - ACUTE KIDNEY FAILURE, UNSPECIFIED (5) Altered mental status Code(s): R41.82 - ALTERED MENTAL STATUS, UNSPECIFIED Qualifiers: Altered mental status type: disorientation Qualified Code(s): R41.0 - Disorientation, unspecified (6) Anemia Code(s): D64.9 - ANEMIA, UNSPECIFIED (7) COPD (chronic obstructive pulmonary disease) Code(s): J44.9 - CHRONIC OBSTRUCTIVE PULMONARY DISEASE, UNSPECIFIED (8) Chronic systolic congestive heart failure Code(s): I50.22 - CHRONIC SYSTOLIC (CONGESTIVE) HEART FAILURE (9) Cirrhosis of liver Code(s): K74.60 - UNSPECIFIED CIRRHOSIS OF LIVER (10) Esophageal varices Code(s): I85.00 - ESOPHAGEAL VARICES WITHOUT BLEEDING (11) Hepatic encephalopathy Code(s): K72.90 - HEPATIC FAILURE, UNSPECIFIED WITHOUT COMA (12) Hypoxia Code(s): R09.02 - HYPOXEMIA (13) Acute on chronic respiratory failure with hypoxia and hypercapnia Code(s): J96.21 - ACUTE AND CHRONIC RESPIRATORY FAILURE WITH HYPOXIA; J96.22 - ACUTE AND CHRONIC RESPIRATORY FAILURE WITH HYPERCAPNIA
[2019-06-15] MEDS ORDERED: PT OWN MED DRAWER 7, Y5N ONE (10:53)
[2019-06-15] MEDS: TAMSULOSIN HCL 0.4 MG CAP PO SCH (11:07)
[2019-06-15] MEDS: SPIRONOLACTONE 25 MG TABLET (FP) PO SCH (11:08)
[2019-06-15] MEDS: AMMONIUM LACTATE 12% LOTION 225 GM BOTTLE TP SCH ×2 (11:09→21:43)
[2019-06-15] MEDS: NADOLOL 40 MG TABLET (FP) PO SCH (11:09)
[2019-06-15] MEDS: RIFAXIMIN 550 MG TABLET (UD) PO SCH ×2 (11:09→21:41)
--- NOTE | 2019-06-15 15:50 | PN ---
Progress Note, Physician Chief Complaint: SOB Hepatic encephalopathy Ascitis History of Present Illness: More alert now Restarted on dysphagia diet-tolerating well - Current Medication List Current Medications: Active Medications Acetaminophen (Tylenol -) 650 mg PO Q6H PRN PRN Reason: PAIN LEVEL 1-5 Last Admin: 06/14/19 22:21 Dose: 650 mg Albuterol Sulfate (Ventolin 0.083% Nebulizer Soln -) 1 amp NEB Q6H PRN PRN Reason: SHORT OF BREATH/WHEEZING Artificial Tears (Artificial Tears) 1 drop OU Q12H PRN PRN Reason: DRY EYES Last Admin: 06/08/19 21:25 Dose: 1 drop Furosemide (Lasix Injection -) 120 mg IVPB BID@0600,1400 [facility] Last Admin: 06/15/19 13:16 Dose: 120 mg Insulin Aspart (Novolog Vial Sliding Scale -) 1 vial SQ [facility]; Protocol Last Admin: 06/15/19 13:15 Dose: 4 units Lactic Acid (Lac-Hydrin 12) 1 applic TP BID [facility] Last Admin: 06/15/19 11:09 Dose: 1 applic Lactulose (Cephulac (Oral Use)) 20 gm PO Q6HPO [facility] Last Admin: 06/15/19 11:09 Dose: 20 gm Lactulose (Cephulac (Rectal Use)) 200 gm ID TID PRN PRN Reason: AGITATION Nadolol (Corgard -) 40 mg PO DAILY [facility] Last Admin: 06/15/19 11:09 Dose: 40 mg Nitroglycerin (Nitrostat -) 0.4 mg SL Q5M PRN PRN Reason: FOR CHEST PAIN Last Admin: 06/09/19 02:05 Dose: 0.4 mg Rifaximin (Xifaxan -) 550 mg PO BID [facility] Last Admin: 06/15/19 11:09 Dose: 550 mg Spironolactone (Aldactone -) 25 mg PO DAILY [facility] Last Admin: 06/15/19 11:08 Dose: 25 mg Tamsulosin HCl (Flomax -) 0.4 mg PO DAILY@0830 [facility] Last Admin: 06/15/19 11:07 Dose: Not Given - Objective Vital Signs: Vital Signs Temperature 97.4 F L 06/15/19 14:00 Pulse Rate 83 06/15/19 14:00 Respiratory Rate 20 06/15/19 14:00 Blood Pressure 140/80 06/15/19 14:00 O2 Sat by Pulse Oximetry (%) 99 06/15/19 09:00 Constitutional: Yes: Well Nourished, No Distress, Calm, Obese Cardiovascular: Yes: Regular Rate and Rhythm Respiratory: Yes: Regular Gastrointestinal: Yes: Normal Bowel Sounds, Soft, Abdomen, Obese Genitourinary: Yes: Incontinence Musculoskeletal: Yes: Muscle Weakness Extremities: Yes: WNL Edema: No Peripheral Pulses WNL: Yes Neurological: Yes: Alert, Pre-Existing Deficit Psychiatric: Yes: Alert Labs: CBC, BMP 06/13/19 06:00 06/14/19 08:20 INR, PTT INR 1.30 (0.83-1.09) H 05/27/19 11:05 Problem List - Problems (1) Hypokalemia Assessment/Plan: -resolved -monitor trend -replenish if needed -likely 2/2 to decreased PO intake -labs in AM Problems reviewed: Yes Code(s): E87.6 - HYPOKALEMIA Assessment/Plan (1) SOPHIE (acute kidney injury) Assessment/Plan: -monitor renal function -Nephrology consult Code(s): N17.9 - ACUTE KIDNEY FAILURE, UNSPECIFIED (2) CHF (congestive heart failure) Assessment/Plan: -Cardiology consult -Tele monitoring -IV furosemide + Spironolactone -strict I&Os -daily weights -fluid restriction -CXR shows moderate bilateral pleural effusion with compressive atelectasis, questionable infiltrates Code(s): I50.9 - HEART FAILURE, UNSPECIFIED Qualifiers: Heart failure type: unspecified Heart failure chronicity: acute on chronic Qualified Code(s): I50.9 - Heart failure, unspecified (3) Troponin level elevated Assessment/Plan: -Cardiology consult -tele monitoring -likely 2/2 to demand ischemia Code(s): R79.89 - OTHER SPECIFIED ABNORMAL FINDINGS OF BLOOD CHEMISTRY (4) COPD (chronic obstructive pulmonary disease) Assessment/Plan: -Pulm consult -CXR shows moderate bilateral pleural effusion with compressive atelectasis -O2 via NC -keep SpO2 >90% Code(s): J44.9 - CHRONIC OBSTRUCTIVE PULMONARY DISEASE, UNSPECIFIED (5) Hepatic encephalopathy Assessment/Plan: -Xifaxin -GI consult -Lactulose -Nadolol, Spirinolactone -Monitor Ammonia levels Code(s): K72.90 - HEPATIC FAILURE, UNSPECIFIED WITHOUT COMA (6) Type II diabetes mellitus, uncontrolled Assessment/Plan: -BGM ACHS -ISS -Levemir -HgA1c 5.5 Code(s): E11.65 - TYPE 2 DIABETES MELLITUS WITH HYPERGLYCEMIA (7) Pancytopenia Assessment/Plan: -Hematology consult -Monitor daily labs -Transfuse for Hg<7.0 to avoid fluid overload Code(s): D61.818 - OTHER PANCYTOPENIA
--- NOTE | 2019-06-15 17:33 | PN ---
Progress Note, Physician History of Present Illness: Pt seen and examined at bedside. He is more awake and interactive than he was yesterday. - Current Medication List Current Medications: Active Medications Acetaminophen (Tylenol -) 650 mg PO Q6H PRN PRN Reason: PAIN LEVEL 1-5 Last Admin: 06/14/19 22:21 Dose: 650 mg Albuterol Sulfate (Ventolin 0.083% Nebulizer Soln -) 1 amp NEB Q6H PRN PRN Reason: SHORT OF BREATH/WHEEZING Artificial Tears (Artificial Tears) 1 drop OU Q12H PRN PRN Reason: DRY EYES Last Admin: 06/08/19 21:25 Dose: 1 drop Furosemide (Lasix Injection -) 120 mg IVPB BID@0600,1400 [facility] Last Admin: 06/15/19 13:16 Dose: 120 mg Insulin Aspart (Novolog Vial Sliding Scale -) 1 vial SQ ACHS [facility]; Protocol Last Admin: 06/15/19 17:19 Dose: 2 units Lactic Acid (Lac-Hydrin 12) 1 applic TP BID [facility] Last Admin: 06/15/19 11:09 Dose: 1 applic Lactulose (Cephulac (Oral Use)) 20 gm PO Q6HPO [facility] Last Admin: 06/15/19 17:19 Dose: 20 gm Lactulose (Cephulac (Rectal Use)) 200 gm [place] TID PRN PRN Reason: AGITATION Nadolol (Corgard -) 40 mg PO DAILY [facility] Last Admin: 06/15/19 11:09 Dose: 40 mg Nitroglycerin (Nitrostat -) 0.4 mg SL Q5M PRN PRN Reason: FOR CHEST PAIN Last Admin: 06/09/19 02:05 Dose: 0.4 mg Rifaximin (Xifaxan -) 550 mg PO BID [facility] Last Admin: 06/15/19 11:09 Dose: 550 mg Spironolactone (Aldactone -) 25 mg PO DAILY [facility] Last Admin: 06/15/19 11:08 Dose: 25 mg Tamsulosin HCl (Flomax -) 0.4 mg PO DAILY@0830 [facility] Last Admin: 06/15/19 11:07 Dose: Not Given - Objective Vital Signs: Vital Signs Temperature 97.4 F L 06/15/19 14:00 Pulse Rate 83 06/15/19 14:00 Respiratory Rate 20 06/15/19 14:00 Blood Pressure 140/80 06/15/19 14:00 O2 Sat by Pulse Oximetry (%) 99 06/15/19 09:00 Constitutional: Yes: Calm Eyes: Yes: Conjunctiva Clear HENT: Yes: Atraumatic Neck: Yes: Supple Cardiovascular: Yes: S1, S2 Respiratory: Yes: On Nasal O2 Gastrointestinal: Yes: Abdomen, Obese Genitourinary: Yes: Incontinence Musculoskeletal: Yes: Muscle Weakness Edema: Yes Neurological: Yes: Confusion Labs: CBC, BMP 06/13/19 06:00 06/14/19 08:20 INR, PTT INR 1.30 (0.83-1.09) H 05/27/19 11:05 Assessment/Plan Current Medications Generic Name Dose Route Start Last Admin Trade Name Freq PRN Reason Stop Dose Admin Acetaminophen 650 mg 06/14/19 21:40 06/14/19 22:21 Tylenol - PO 650 mg Q6H PRN Administration PAIN LEVEL 1-5 Albuterol Sulfate 1 amp 06/12/19 10:51 Ventolin 0.083% Nebulizer Soln - NEB Q6H PRN SHORT OF BREATH/WHEEZING Artificial Tears 1 drop 06/08/19 20:35 06/08/19 21:25 Artificial Tears OU 1 drop Q12H PRN Administration DRY EYES Furosemide 120 mg 06/13/19 14:51 06/15/19 13:16 Lasix Injection - IVPB 120 mg BID@0600,1400 [facility] Administration Insulin Aspart 1 vial 05/27/19 17:31 06/15/19 17:19 Novolog Vial Sliding Scale - SQ 2 units ACHS [facility] Administration Protocol Lactic Acid 1 applic 06/02/19 16:52 06/15/19 11:09 Lac-Hydrin 12 TP 1 applic BID [facility] Administration Lactulose 20 gm 06/12/19 15:00 06/15/19 17:19 Cephulac (Oral Use) PO 20 gm Q6HPO [facility] Administration Lactulose 200 gm 06/13/19 17:04 Cephulac (Rectal Use) LA TID PRN AGITATION Nadolol 40 mg 06/14/19 10:00 06/15/19 11:09 Corgard - PO 40 mg DAILY [facility] Administration Nitroglycerin 0.4 mg 06/08/19 18:49 06/09/19 02:05 Nitrostat - SL 0.4 mg Q5M PRN Administration FOR CHEST PAIN Rifaximin 550 mg 06/13/19 22:00 06/15/19 11:09 Xifaxan - PO 550 mg BID [facility] Administration Spironolactone 25 mg 06/13/19 17:45 06/15/19 11:08 Aldactone - PO 25 mg DAILY [facility] Administration Tamsulosin HCl 0.4 mg 05/28/19 08:30 06/15/19 11:07 Flomax - PO Not Given DAILY@0830 [facility] 1. SOPHIE 2. Alcoholic cirrhosis with ascities 3. Anemia 4. Leukopenia/thrombocytopenia 5. CHF with volume overload 6. Hypertension 7. Mild hyperkalemia Plan - mental status appears to be improving - cont with lasix - repeat labs in am - monitor mental status - cont lactulose - monitor lytes
[2019-06-16] MEDS: LACTULOSE 20 GM/30 ML UDC (FOR ORAL USE ONLY) PO SCH ×4 (06:05→23:00)
[2019-06-16] MEDS: FUROSEMIDE 40 MG/4 ML INJECTABLE VIAL IVPB SCH ×2 (06:05→15:46)
[2019-06-16] MEDS: INSULIN SLIDING SCALE (NOVOLOG) 1 VIAL SQ SCH ×4 (06:11→22:26)
[2019-06-16 07:47] LABS: BASO % 0.5 % (0-2.0); EOS % 7.2 % (0-4.5); HEMATOCRIT 32.7 % (35.4-49); HEMOGLOBIN 11.1 GM/dL (11.7-16.9); MCH 33.8 pg (25.7-33.7); MEAN CELL VOLUME 99.2 fl (80-96); MEAN PLT VOLUME 9.2 fl (7.5-11.1); NEUT % 67.3 % (42.8-82.8); PLATELET COUNT 85 K/MM3 (134-434); RDW 15.3 % (11.9-15.9); WHITE BLOOD COUNT 5.3 K/mm3 (4.0-10.0)
[2019-06-16 08:07] LABS: ALBUMIN 3.1 g/dl (3.4-5.0); BILIRUBIN,TOTAL 6.4 mg/dL (0.2-1); BLOOD UREA NITROGEN 77.1 mg/dL (7-18); CALCIUM 9.1 mg/dL (8.5-10.1); CREATININE 1.7 mg/dL (0.55-1.3); TOT PROT 6.1 g/dl (6.4-8.2)
--- NOTE | 2019-06-16 10:24 | PN ---
Progress Note, Physician History of Present Illness: PULMONARY MORE ALERT,NO DISTRESS,+ OCC COUGH - Current Medication List Current Medications: Active Medications Acetaminophen (Tylenol -) 650 mg PO Q6H PRN PRN Reason: PAIN LEVEL 1-5 Last Admin: 06/14/19 22:21 Dose: 650 mg Albuterol Sulfate (Ventolin 0.083% Nebulizer Soln -) 1 amp NEB Q6H PRN PRN Reason: SHORT OF BREATH/WHEEZING Artificial Tears (Artificial Tears) 1 drop OU Q12H PRN PRN Reason: DRY EYES Last Admin: 06/08/19 21:25 Dose: 1 drop Furosemide (Lasix Injection -) 120 mg IVPB BID@0600,1400 [facility] Last Admin: 06/16/19 06:05 Dose: 120 mg Insulin Aspart (Novolog Vial Sliding Scale -) 1 vial SQ ACHS [facility]; Protocol Last Admin: 06/16/19 06:11 Dose: 2 units Lactic Acid (Lac-Hydrin 12) 1 applic TP BID [facility] Last Admin: 06/15/19 21:43 Dose: 1 applic Lactulose (Cephulac (Oral Use)) 20 gm PO Q6HPO [facility] Last Admin: 06/16/19 06:05 Dose: 20 gm Lactulose (Cephulac (Rectal Use)) 200 gm NE TID PRN PRN Reason: AGITATION Nadolol (Corgard -) 40 mg PO DAILY [facility] Last Admin: 06/15/19 11:09 Dose: 40 mg Nitroglycerin (Nitrostat -) 0.4 mg SL Q5M PRN PRN Reason: FOR CHEST PAIN Last Admin: 06/09/19 02:05 Dose: 0.4 mg Rifaximin (Xifaxan -) 550 mg PO BID [facility] Last Admin: 06/15/19 21:41 Dose: 550 mg Spironolactone (Aldactone -) 25 mg PO DAILY [facility] Last Admin: 06/15/19 11:08 Dose: 25 mg Tamsulosin HCl (Flomax -) 0.4 mg PO DAILY@0830 [facility] Last Admin: 06/15/19 11:07 Dose: Not Given - Objective Vital Signs: Vital Signs Temperature 97.2 F L 06/16/19 05:50 Pulse Rate 89 06/16/19 05:50 Respiratory Rate 20 06/16/19 05:50 Blood Pressure 147/62 06/16/19 05:50 O2 Sat by Pulse Oximetry (%) 100 06/15/19 21:00 Constitutional: Yes: Well Nourished, Calm Eyes: Yes: WNL HENT: Yes: WNL Neck: Yes: WNL Cardiovascular: Yes: Regular Rate and Rhythm, S1, S2 Respiratory: Yes: Diminished Gastrointestinal: Yes: Normal Bowel Sounds, Soft Extremities: Yes: WNL Edema: Yes Labs: CBC, BMP 06/16/19 05:35 06/16/19 05:35 INR, PTT INR 1.30 (0.83-1.09) H 05/27/19 11:05 Problem List - Problems (1) SOPHIE (acute kidney injury) Code(s): N17.9 - ACUTE KIDNEY FAILURE, UNSPECIFIED (2) CHF (congestive heart failure) Code(s): I50.9 - HEART FAILURE, UNSPECIFIED Qualifiers: Heart failure type: unspecified Heart failure chronicity: acute on chronic Qualified Code(s): I50.9 - Heart failure, unspecified (3) Pancytopenia Code(s): D61.818 - OTHER PANCYTOPENIA (4) Acute renal failure (ARF) Code(s): N17.9 - ACUTE KIDNEY FAILURE, UNSPECIFIED (5) Altered mental status Code(s): R41.82 - ALTERED MENTAL STATUS, UNSPECIFIED Qualifiers: Altered mental status type: disorientation Qualified Code(s): R41.0 - Disorientation, unspecified (6) Anemia Code(s): D64.9 - ANEMIA, UNSPECIFIED (7) COPD (chronic obstructive pulmonary disease) Code(s): J44.9 - CHRONIC OBSTRUCTIVE PULMONARY DISEASE, UNSPECIFIED (8) Chronic systolic congestive heart failure Code(s): I50.22 - CHRONIC SYSTOLIC (CONGESTIVE) HEART FAILURE (9) Cirrhosis of liver Code(s): K74.60 - UNSPECIFIED CIRRHOSIS OF LIVER (10) Esophageal varices Code(s): I85.00 - ESOPHAGEAL VARICES WITHOUT BLEEDING (11) Hepatic encephalopathy Code(s): K72.90 - HEPATIC FAILURE, UNSPECIFIED WITHOUT COMA (12) Hypoxia Code(s): R09.02 - HYPOXEMIA (13) Acute on chronic respiratory failure with hypoxia and hypercapnia Code(s): J96.21 - ACUTE AND CHRONIC RESPIRATORY FAILURE WITH HYPOXIA; J96.22 - ACUTE AND CHRONIC RESPIRATORY FAILURE WITH HYPERCAPNIA
[2019-06-16] MEDS ORDERED: PT OWN MED DRAWER 7, Y5N ONE ×2 (10:46→22:05)
[2019-06-16] MEDS: SPIRONOLACTONE 25 MG TABLET (FP) PO SCH (10:54)
[2019-06-16] MEDS: TAMSULOSIN HCL 0.4 MG CAP PO SCH (10:55)
[2019-06-16] MEDS: NADOLOL 40 MG TABLET (FP) PO SCH (10:55)
[2019-06-16] MEDS: AMMONIUM LACTATE 12% LOTION 225 GM BOTTLE TP SCH ×2 (10:56→22:25)
[2019-06-16] MEDS: RIFAXIMIN 550 MG TABLET (UD) PO SCH ×2 (10:56→22:25)
[2019-06-16] MEDS ORDERED: INSULIN (NOVOLOG) ASPART 100 UNITS/ML 10ML VIAL ONE (12:37)
--- NOTE | 2019-06-16 12:42 | PN ---
Progress Note (short form) - Note Progress Note: Renal follow up for SOPHIE/CKD Seen and examined at the bedside awake and alert offers no acute complaints no shortness of breath, chest pain, abdominal pain, fever or chills Vital Signs Temperature 97.2 F L 06/16/19 05:50 Pulse Rate 89 06/16/19 05:50 Respiratory Rate 20 06/16/19 05:50 Blood Pressure 147/62 06/16/19 05:50 O2 Sat by Pulse Oximetry (%) 100 06/15/19 21:00 Intake & Output 06/13/19 06/14/19 06/15/19 06/16/19 23:59 23:59 23:59 23:59 Intake Total 360 210 670 320 Output Total 200 Balance 360 210 470 320 Weight 132.177 kg 115.575 kg 107.547 kg NAD awake and alert neck supple RRR Dec BS + abd ascities + LE edema CBC, BMP 06/16/19 05:35 06/16/19 05:35 Current Medications Acetaminophen (Tylenol -) 650 mg PO Q6H PRN PRN Reason: PAIN LEVEL 1-5 Last Admin: 06/14/19 22:21 Dose: 650 mg Albuterol Sulfate (Ventolin 0.083% Nebulizer Soln -) 1 amp NEB Q6H PRN PRN Reason: SHORT OF BREATH/WHEEZING Artificial Tears (Artificial Tears) 1 drop OU Q12H PRN PRN Reason: DRY EYES Last Admin: 06/08/19 21:25 Dose: 1 drop Furosemide (Lasix Injection -) 120 mg IVPB BID@0600,1400 [facility] Last Admin: 06/16/19 06:05 Dose: 120 mg Insulin Aspart (Novolog Vial Sliding Scale -) 1 vial SQ ACHS [facility]; Protocol Last Admin: 06/16/19 12:38 Dose: 2 units Lactic Acid (Lac-Hydrin 12) 1 applic TP BID [facility] Last Admin: 06/16/19 10:56 Dose: 1 applic Lactulose (Cephulac (Oral Use)) 20 gm PO Q6HPO [facility] Last Admin: 06/16/19 12:38 Dose: 20 gm Lactulose (Cephulac (Rectal Use)) 200 gm [place] TID PRN PRN Reason: AGITATION Nadolol (Corgard -) 40 mg PO DAILY [facility] Last Admin: 06/16/19 10:55 Dose: 40 mg Nitroglycerin (Nitrostat -) 0.4 mg SL Q5M PRN PRN Reason: FOR CHEST PAIN Last Admin: 06/09/19 02:05 Dose: 0.4 mg Rifaximin (Xifaxan -) 550 mg PO BID [facility] Last Admin: 06/16/19 10:56 Dose: 550 mg Spironolactone (Aldactone -) 25 mg PO DAILY [facility] Last Admin: 06/16/19 10:54 Dose: 25 mg Tamsulosin HCl (Flomax -) 0.4 mg PO DAILY@0830 [facility] Last Admin: 06/16/19 10:55 Dose: Not Given 74 year old gentleman with history of Alcoholic cirrhosis, hypertension, CHF presented with shortness of breath and increased abdominal girth and admitted for worsening ascities. 1. SOPHIE 2. Alcoholic cirrhosis with ascities 3. Anemia 4. Leukopenia/thrombocytopenia 5. CHF with volume overload 6. Hypertension 7. Mild hyperkalemia Renal function improving, weights improving Continue current Lasix and aldactone Ammonia levels improving continue Lactulose per rectum trend renal function and electrolytes Titrate lactulose to 2-3 BM's daily Ang Sanchez DO
[2019-06-16 13:45] LABS: ARTERIAL BLD GAS O2 SATURATION 88.4 % (95-98); ARTERIAL BLOOD GAS BASE EXCESS 17.3 meq/l (-2-2); ARTERIAL BLOOD GAS PCO2 62.8 mmHg (35-45); ARTERIAL BLOOD GAS PO2 57.2 mmHg (80-100); ARTERIAL BLOOD GAS pH 7.46 (7.35-7.45)
[2019-06-16 13:48] LABS: ALLENS TEST POSITIVE
--- NOTE | 2019-06-16 14:01 | PN ---
Progress Note, Physician Chief Complaint: patient seen and examined awake - Current Medication List Current Medications: Active Medications Acetaminophen (Tylenol -) 650 mg PO Q6H PRN PRN Reason: PAIN LEVEL 1-5 Last Admin: 06/14/19 22:21 Dose: 650 mg Albuterol Sulfate (Ventolin 0.083% Nebulizer Soln -) 1 amp NEB Q6H PRN PRN Reason: SHORT OF BREATH/WHEEZING Artificial Tears (Artificial Tears) 1 drop OU Q12H PRN PRN Reason: DRY EYES Last Admin: 06/08/19 21:25 Dose: 1 drop Furosemide (Lasix Injection -) 120 mg IVPB BID@0600,1400 [facility] Last Admin: 06/16/19 06:05 Dose: 120 mg Insulin Aspart (Novolog Vial Sliding Scale -) 1 vial SQ ACHS [facility]; Protocol Last Admin: 06/16/19 12:38 Dose: 2 units Lactic Acid (Lac-Hydrin 12) 1 applic TP BID [facility] Last Admin: 06/16/19 10:56 Dose: 1 applic Lactulose (Cephulac (Oral Use)) 20 gm PO Q6HPO [facility] Last Admin: 06/16/19 12:38 Dose: 20 gm Lactulose (Cephulac (Rectal Use)) 200 gm [place] TID PRN PRN Reason: AGITATION Nadolol (Corgard -) 40 mg PO DAILY [facility] Last Admin: 06/16/19 10:55 Dose: 40 mg Nitroglycerin (Nitrostat -) 0.4 mg SL Q5M PRN PRN Reason: FOR CHEST PAIN Last Admin: 06/09/19 02:05 Dose: 0.4 mg Rifaximin (Xifaxan -) 550 mg PO BID [facility] Last Admin: 06/16/19 10:56 Dose: 550 mg Spironolactone (Aldactone -) 25 mg PO DAILY [facility] Last Admin: 06/16/19 10:54 Dose: 25 mg Tamsulosin HCl (Flomax -) 0.4 mg PO DAILY@0830 [facility] Last Admin: 06/16/19 10:55 Dose: Not Given - Objective Vital Signs: Vital Signs Temperature 97.2 F L 06/16/19 05:50 Pulse Rate 85 06/16/19 10:00 Respiratory Rate 18 06/16/19 10:00 Blood Pressure 137/65 06/16/19 10:00 O2 Sat by Pulse Oximetry (%) 100 06/15/19 21:00 Constitutional: Yes: Calm Eyes: Yes: Sclera Icterus Neck: Yes: Trachea Midline Cardiovascular: Yes: Regular Rate and Rhythm, S1, S2 Respiratory: Yes: Diminished Gastrointestinal: Yes: Normal Bowel Sounds, Soft, Ascites Edema: Yes Neurological: Yes: Alert Labs: CBC, BMP 06/16/19 05:35 06/16/19 05:35 INR, PTT INR 1.30 (0.83-1.09) H 05/27/19 11:05 Problem List - Problems (1) Change in mental status Assessment/Plan: patient more awake alert dsyphagia pureed diet ammonia trending down Code(s): R41.82 - ALTERED MENTAL STATUS, UNSPECIFIED (2) Cirrhosis of liver Assessment/Plan: aldactone ,nadolol,rifaximin, ultrasound shows liver mass in left lobe lactulose dose increase ammonia trending down spoke to dr Wynn on sunday last week and had him speak to Daughter as well he said to continue same medications no need to transfer to [facility] Code(s): K74.60 - UNSPECIFIED CIRRHOSIS OF LIVER (3) CHF (congestive heart failure) Assessment/Plan: iv lasix dose increase to 60mg bid to 100mg bid to 120mg bid albumin completed echo left ventricle systolic function is severly reduced chest ct show right side pleural effusion more than left side pleural effusion Code(s): I50.9 - HEART FAILURE, UNSPECIFIED Qualifiers: Heart failure type: unspecified Heart failure chronicity: acute on chronic Qualified Code(s): I50.9 - Heart failure, unspecified (4) Ascites Assessment/Plan: continue with lasix and now on aldactone improving with increased dose of iv lasix 60mg bid to 100mg iv bid adn now dose 120mg bid Code(s): R18.8 - OTHER ASCITES (5) Type II diabetes mellitus, uncontrolled Code(s): E11.65 - TYPE 2 DIABETES MELLITUS WITH HYPERGLYCEMIA (6) Acquired thrombocytopenia Assessment/Plan: secondary to cirrhosis/hyperslenism platelet count is better now 93 continue to monitor Code(s): D69.59 - OTHER SECONDARY THROMBOCYTOPENIA (7) Afib Assessment/Plan: on AC bc of coagulopathy and liver disease on nadolol stop metoprolol Code(s): I48.91 - UNSPECIFIED ATRIAL FIBRILLATION
[2019-06-17] MEDS: INSULIN SLIDING SCALE (NOVOLOG) 1 VIAL SQ SCH ×4 (06:25→22:18)
[2019-06-17] MEDS: FUROSEMIDE 40 MG/4 ML INJECTABLE VIAL IVPB SCH (06:25)
[2019-06-17] MEDS: LACTULOSE 20 GM/30 ML UDC (FOR ORAL USE ONLY) PO SCH ×4 (06:45→18:45)
[2019-06-17 07:07] LABS: BASO % 0.4 % (0-2.0); EOS % 5.8 % (0-4.5); HEMATOCRIT 31.4 % (35.4-49); HEMOGLOBIN 10.5 GM/dL (11.7-16.9); MCH 33.4 pg (25.7-33.7); MCHC 33.6 g/dl (32.0-35.9); MEAN CELL VOLUME 99.3 fl (80-96); MEAN PLT VOLUME 9.7 fl (7.5-11.1); MONO % 9.5 % (3.8-10.2); NEUT % 69.3 % (42.8-82.8); PLATELET COUNT 85 K/MM3 (134-434); RBC 3.16 M/mm3 (4.00-5.60); RDW 15.5 % (11.9-15.9); WHITE BLOOD COUNT 5.5 K/mm3 (4.0-10.0)
[2019-06-17 07:58] LABS: BILIRUBIN,TOTAL 6.1 mg/dL (0.2-1); BLOOD UREA NITROGEN 64.2 mg/dL (7-18); CALCIUM 9.1 mg/dL (8.5-10.1); CREATININE 1.7 mg/dL (0.55-1.3); MAGNESIUM 2.1 mg/dL (1.8-2.4)
[2019-06-17 08:02] LABS: POTASSIUM 2.7 mmol/L (3.5-5.1)
[2019-06-17] MEDS ORDERED: POTASSIUM CHLORIDE TABS 20 MEQ TABLET.ER (FP) PO ONE (09:00)
[2019-06-17] MEDS: KCL 10 MEQ IVPB 10 MEQ/100 ML INFUS.BAG IVPB SCH ×3 (09:45→12:08)
[2019-06-17] MEDS ORDERED: PT OWN MED DRAWER 7, Y5N ONE ×3 (09:52→21:38)
[2019-06-17] MEDS: RIFAXIMIN 550 MG TABLET (UD) PO SCH ×2 (09:56→22:20)
[2019-06-17] MEDS: TAMSULOSIN HCL 0.4 MG CAP PO SCH (09:57)
[2019-06-17] MEDS: NADOLOL 40 MG TABLET (FP) PO SCH (09:57)
[2019-06-17] MEDS: SPIRONOLACTONE 25 MG TABLET (FP) PO SCH (09:57)
--- NOTE | 2019-06-17 10:37 | PN ---
Progress Note, Physician Chief Complaint: SOB Hepatic encephalopathy Ascitis History of Present Illness: More alert now Restarted on dysphagia diet-tolerating well Hypokalemic yesterday and worsening today, did not receive any supplement yesterday Generalized edema improved - Current Medication List Current Medications: Active Medications Acetaminophen (Tylenol -) 650 mg PO Q6H PRN PRN Reason: PAIN LEVEL 1-5 Last Admin: 06/14/19 22:21 Dose: 650 mg Albuterol Sulfate (Ventolin 0.083% Nebulizer Soln -) 1 amp NEB Q6H PRN PRN Reason: SHORT OF BREATH/WHEEZING Last Admin: 06/16/19 20:16 Dose: 1 amp Artificial Tears (Artificial Tears) 1 drop OU Q12H PRN PRN Reason: DRY EYES Last Admin: 06/08/19 21:25 Dose: 1 drop Furosemide (Lasix Injection -) 120 mg IVPB BID@0600,1400 [facility] Last Admin: 06/17/19 06:25 Dose: 120 mg Potassium Chloride (Potassium Chloride 10 Meq Premix Ivpb -) 10 meq in 100 mls @ 100 mls/hr IVPB Q1H [facility] Stop: 06/17/19 11:59 Last Admin: 06/17/19 09:45 Dose: 100 mls/hr Insulin Aspart (Novolog Vial Sliding Scale -) 1 vial SQ ACHS [facility]; Protocol Last Admin: 06/17/19 06:25 Dose: 4 units Lactic Acid (Lac-Hydrin 12) 1 applic TP BID [facility] Last Admin: 06/16/19 22:25 Dose: 1 applic Lactulose (Cephulac (Oral Use)) 20 gm PO Q6HPO [facility] Last Admin: 06/17/19 06:45 Dose: 20 gm Lactulose (Cephulac (Rectal Use)) 200 gm [place] TID PRN PRN Reason: AGITATION Nadolol (Corgard -) 40 mg PO DAILY [facility] Last Admin: 06/17/19 09:57 Dose: 40 mg Nitroglycerin (Nitrostat -) 0.4 mg SL Q5M PRN PRN Reason: FOR CHEST PAIN Last Admin: 06/09/19 02:05 Dose: 0.4 mg Potassium Chloride (K-Dur -) 40 meq PO DAILY [facility] Potassium Chloride (Potassium Chloride Oral Liquid) 40 meq PO HS ONE Stop: 06/17/19 22:01 Rifaximin (Xifaxan -) 550 mg PO BID [facility] Last Admin: 06/17/19 09:56 Dose: 550 mg Spironolactone (Aldactone -) 25 mg PO DAILY [facility] Last Admin: 06/17/19 09:57 Dose: 25 mg Tamsulosin HCl (Flomax -) 0.4 mg PO DAILY@0830 [facility] Last Admin: 06/17/19 09:57 Dose: 0.4 mg - Objective Vital Signs: Vital Signs Temperature 97.7 F 06/17/19 05:26 Pulse Rate 84 06/17/19 05:26 Respiratory Rate 18 06/17/19 05:26 Blood Pressure 133/78 06/17/19 05:26 O2 Sat by Pulse Oximetry (%) 100 06/15/19 21:00 Constitutional: Yes: Well Nourished, No Distress, Calm Cardiovascular: Yes: Regular Rate and Rhythm Respiratory: Yes: Regular Gastrointestinal: Yes: Normal Bowel Sounds, Soft, Abdomen, Obese, Ascites Genitourinary: Yes: Incontinence Musculoskeletal: Yes: Muscle Weakness Extremities: Yes: WNL Edema: Yes Edema: LLE: 1+, RLE: 1+ Peripheral Pulses WNL: Yes Neurological: Yes: Alert, Pre-Existing Deficit Psychiatric: Yes: Alert Labs: CBC, BMP 06/17/19 05:35 06/17/19 05:35 INR, PTT INR 1.30 (0.83-1.09) H 05/27/19 11:05 Problem List - Problems (1) Hypokalemia Assessment/Plan: -2/2 to diuretics -KCL 40 meq once po -KCl 10 meq x 3 IVPB- if unable to tolerate, will give another PO dose tonight -monitor labs later today and in AM -Decrease furosemide to 80 mg IVP BID Code(s): E87.6 - HYPOKALEMIA Assessment/Plan (1) SOPHIE (acute kidney injury) Assessment/Plan: -monitor renal function -Nephrology consult Code(s): N17.9 - ACUTE KIDNEY FAILURE, UNSPECIFIED (2) CHF (congestive heart failure) Assessment/Plan: -Cardiology consult -Tele monitoring -IV furosemide + Spironolactone -strict I&Os -daily weights -fluid restriction -CXR shows moderate bilateral pleural effusion with compressive atelectasis, questionable infiltrates Code(s): I50.9 - HEART FAILURE, UNSPECIFIED Qualifiers: Heart failure type: unspecified Heart failure chronicity: acute on chronic Qualified Code(s): I50.9 - Heart failure, unspecified (3) Troponin level elevated Assessment/Plan: -Cardiology consult -tele monitoring -likely 2/2 to demand ischemia Code(s): R79.89 - OTHER SPECIFIED ABNORMAL FINDINGS OF BLOOD CHEMISTRY (4) COPD (chronic obstructive pulmonary disease) Assessment/Plan: -Pulm consult -CXR shows moderate bilateral pleural effusion with compressive atelectasis -O2 via NC -keep SpO2 >90% Code(s): J44.9 - CHRONIC OBSTRUCTIVE PULMONARY DISEASE, UNSPECIFIED (5) Hepatic encephalopathy Assessment/Plan: -Xifaxin -GI consult -Lactulose -Nadolol, Spirinolactone -Monitor Ammonia levels-trending down Code(s): K72.90 - HEPATIC FAILURE, UNSPECIFIED WITHOUT COMA (6) Type II diabetes mellitus, uncontrolled Assessment[facility]Plan: [facility]Levemir -HgA1c 5.5 Code(s): E11.65 - TYPE 2 DIABETES MELLITUS WITH HYPERGLYCEMIA (7) Pancytopenia Assessment/Plan: -Hematology consult -Monitor daily labs -Transfuse for Hg<7.0 to avoid fluid overload Code(s): D61.818 - OTHER PANCYTOPENIA
--- NOTE | 2019-06-17 10:42 | PN ---
Progress Note, Physician History of Present Illness: pulmonary awake,no distress,-congestion - Current Medication List Current Medications: Active Medications Acetaminophen (Tylenol -) 650 mg PO Q6H PRN PRN Reason: PAIN LEVEL 1-5 Last Admin: 06/14/19 22:21 Dose: 650 mg Albuterol Sulfate (Ventolin 0.083% Nebulizer Soln -) 1 amp NEB Q6H PRN PRN Reason: SHORT OF BREATH/WHEEZING Last Admin: 06/16/19 20:16 Dose: 1 amp Artificial Tears (Artificial Tears) 1 drop OU Q12H PRN PRN Reason: DRY EYES Last Admin: 06/08/19 21:25 Dose: 1 drop Furosemide (Lasix Injection -) 120 mg IVPB BID@0600,1400 [facility] Last Admin: 06/17/19 06:25 Dose: 120 mg Potassium Chloride (Potassium Chloride 10 Meq Premix Ivpb -) 10 meq in 100 mls @ 100 mls/hr IVPB Q1H [facility] Stop: 06/17/19 11:59 Last Admin: 06/17/19 09:45 Dose: 100 mls/hr Insulin Aspart (Novolog Vial Sliding Scale -) 1 vial SQ ACHS [facility]; Protocol Last Admin: 06/17/19 06:25 Dose: 4 units Lactic Acid (Lac-Hydrin 12) 1 applic TP BID [facility] Last Admin: 06/16/19 22:25 Dose: 1 applic Lactulose (Cephulac (Oral Use)) 20 gm PO Q6HPO [facility] Last Admin: 06/17/19 06:45 Dose: 20 gm Lactulose (Cephulac (Rectal Use)) 200 gm [place] TID PRN PRN Reason: AGITATION Nadolol (Corgard -) 40 mg PO DAILY [facility] Last Admin: 06/17/19 09:57 Dose: 40 mg Nitroglycerin (Nitrostat -) 0.4 mg SL Q5M PRN PRN Reason: FOR CHEST PAIN Last Admin: 06/09/19 02:05 Dose: 0.4 mg Potassium Chloride (K-Dur -) 40 meq PO DAILY [facility] Potassium Chloride (Potassium Chloride Oral Liquid) 40 meq PO HS ONE Stop: 06/17/19 22:01 Rifaximin (Xifaxan -) 550 mg PO BID [facility] Last Admin: 06/17/19 09:56 Dose: 550 mg Spironolactone (Aldactone -) 25 mg PO DAILY [facility] Last Admin: 06/17/19 09:57 Dose: 25 mg Tamsulosin HCl (Flomax -) 0.4 mg PO DAILY@0830 [facility] Last Admin: 06/17/19 09:57 Dose: 0.4 mg - Objective Vital Signs: Vital Signs Temperature 97.7 F 06/17/19 05:26 Pulse Rate 84 06/17/19 05:26 Respiratory Rate 18 06/17/19 05:26 Blood Pressure 133/78 06/17/19 05:26 O2 Sat by Pulse Oximetry (%) 100 06/15/19 21:00 Constitutional: Yes: Well Nourished, Calm, Obese Eyes: Yes: WNL HENT: Yes: WNL Neck: Yes: WNL Cardiovascular: Yes: Regular Rate and Rhythm, S1, S2 Respiratory: Yes: Diminished Gastrointestinal: Yes: Normal Bowel Sounds, Soft Extremities: Yes: WNL Edema: Yes Labs: CBC, BMP 06/17/19 05:35 06/17/19 05:35 INR, PTT INR 1.30 (0.83-1.09) H 05/27/19 11:05 Problem List - Problems (1) SOPHIE (acute kidney injury) Code(s): N17.9 - ACUTE KIDNEY FAILURE, UNSPECIFIED (2) CHF (congestive heart failure) Code(s): I50.9 - HEART FAILURE, UNSPECIFIED Qualifiers: Qualified Code(s): I50.9 - Heart failure, unspecified (3) Pancytopenia Code(s): D61.818 - OTHER PANCYTOPENIA (4) Acute renal failure (ARF) Code(s): N17.9 - ACUTE KIDNEY FAILURE, UNSPECIFIED (5) Altered mental status Code(s): R41.82 - ALTERED MENTAL STATUS, UNSPECIFIED Qualifiers: Qualified Code(s): R41.0 - Disorientation, unspecified (6) Anemia Code(s): D64.9 - ANEMIA, UNSPECIFIED (7) COPD (chronic obstructive pulmonary disease) Code(s): J44.9 - CHRONIC OBSTRUCTIVE PULMONARY DISEASE, UNSPECIFIED (8) Chronic systolic congestive heart failure Code(s): I50.22 - CHRONIC SYSTOLIC (CONGESTIVE) HEART FAILURE (9) Cirrhosis of liver Code(s): K74.60 - UNSPECIFIED CIRRHOSIS OF LIVER (10) Esophageal varices Code(s): I85.00 - ESOPHAGEAL VARICES WITHOUT BLEEDING (11) Hepatic encephalopathy Code(s): K72.90 - HEPATIC FAILURE, UNSPECIFIED WITHOUT COMA (12) Hypoxia Code(s): R09.02 - HYPOXEMIA (13) Acute on chronic respiratory failure with hypoxia and hypercapnia Code(s): J96.21 - ACUTE AND CHRONIC RESPIRATORY FAILURE WITH HYPOXIA; J96.22 - ACUTE AND CHRONIC RESPIRATORY FAILURE WITH HYPERCAPNIA Assessment/Plan CONSULTATION DICTATED 05/08/19 IMP DYSPNEA improving CHF IMPROVING ACUTE ON CHRONIC HYPOXEMIC/HYPERCAPNEIC RESPIRATORY FAILURE IMPROVING VOLUME OVERLOAD IMPROVING ASCITES COPD O2 DEPENDENT PLEURAL EFFUSION HEPATIC ENCEPHALOPATHY DM CIRRHOSIS WITH ESOPHAGEAL VARICES S/P BANDING THROMBOCYTOPENIA OSPHIE H/O ETOH PLAN DIURETICS CARDIAC MEDS PER CARDIOLOGY O2 DAILY WTS MONITOR LYTES,RENAL FUNCTION MONITOR H+H LACTULOSE FOLLOW AMMONIA LEVEL REPLETE K DR COLLAZO Problem List - Problems (1) SOPHIE (acute kidney injury) Code(s): N17.9 - ACUTE KIDNEY FAILURE, UNSPECIFIED (2) CHF (congestive heart failure) Code(s): I50.9 - HEART FAILURE, UNSPECIFIED Qualifiers: Heart failure type: unspecified Heart failure chronicity: acute on chronic Qualified Code(s): I50.9 - Heart failure, unspecified (3) Pancytopenia Code(s): D61.818 - OTHER PANCYTOPENIA (4) Acute renal failure (ARF) Code(s): N17.9 - ACUTE KIDNEY FAILURE, UNSPECIFIED (5) Altered mental status Code(s): R41.82 - ALTERED MENTAL STATUS, UNSPECIFIED Qualifiers: Altered mental status type: disorientation Qualified Code(s): R41.0 - Disorientation, unspecified (6) Anemia Code(s): D64.9 - ANEMIA, UNSPECIFIED (7) COPD (chronic obstructive pulmonary disease) Code(s): J44.9 - CHRONIC OBSTRUCTIVE PULMONARY DISEASE, UNSPECIFIED (8) Chronic systolic congestive heart failure Code(s): I50.22 - CHRONIC SYSTOLIC (CONGESTIVE) HEART FAILURE (9) Cirrhosis of liver Code(s): K74.60 - UNSPECIFIED CIRRHOSIS OF LIVER (10) Esophageal varices Code(s): I85.00 - ESOPHAGEAL VARICES WITHOUT BLEEDING (11) Hepatic encephalopathy Code(s): K72.90 - HEPATIC FAILURE, UNSPECIFIED WITHOUT COMA (12) Hypoxia Code(s): R09.02 - HYPOXEMIA (13) Acute on chronic respiratory failure with hypoxia and hypercapnia Code(s): J96.21 - ACUTE AND CHRONIC RESPIRATORY FAILURE WITH HYPOXIA; J96.22 - ACUTE AND CHRONIC RESPIRATORY FAILURE WITH HYPERCAPNIA
[2019-06-17] MEDS: AMMONIUM LACTATE 12% LOTION 225 GM BOTTLE TP SCH ×2 (11:31→22:19)
[2019-06-17] MEDS ORDERED: INSULIN (NOVOLOG) ASPART 100 UNITS/ML 10ML VIAL ONE (11:40)
--- NOTE | 2019-06-17 12:26 | PN ---
Progress Note (short form) - Note Progress Note: Renal follow up for SOPHIE/CKD Seen and examined at the bedside awake and alert no acute complaints denies any sob at rest, chest pain, fever or chills tolerating oral diet making a lot of urine Vital Signs Temperature 98 F 06/17/19 09:00 Pulse Rate 88 06/17/19 09:00 Respiratory Rate 20 06/17/19 09:00 Blood Pressure 144/68 06/17/19 09:00 O2 Sat by Pulse Oximetry (%) 100 06/15/19 21:00 Intake & Output 06/14/19 06/15/19 06/16/19 06/17/19 23:59 23:59 23:59 23:59 Intake Total 210 670 670 365 Output Total 200 Balance 210 470 670 365 Weight 115.575 kg 107.547 kg 107.104 kg NAD awake and alert neck supple RRR Dec BS + abd ascities + LE edema CBC, BMP 06/17/19 05:35 06/17/19 05:35 Current Medications Acetaminophen (Tylenol -) 650 mg PO Q6H PRN PRN Reason: PAIN LEVEL 1-5 Last Admin: 06/14/19 22:21 Dose: 650 mg Albuterol Sulfate (Ventolin 0.083% Nebulizer Soln -) 1 amp NEB Q6H PRN PRN Reason: SHORT OF BREATH/WHEEZING Last Admin: 06/16/19 20:16 Dose: 1 amp Artificial Tears (Artificial Tears) 1 drop OU Q12H PRN PRN Reason: DRY EYES Last Admin: 06/08/19 21:25 Dose: 1 drop Furosemide (Lasix Injection -) 80 mg IVPUSH BID@0600,1400 [facility] Insulin Aspart (Novolog Vial Sliding Scale -) 1 vial SQ ACHS [facility]; Protocol Last Admin: 06/17/19 11:41 Dose: 4 units Lactic Acid (Lac-Hydrin 12) 1 applic TP BID [facility] Last Admin: 06/17/19 11:31 Dose: 1 applic Lactulose (Cephulac (Oral Use)) 20 gm PO Q6HPO [facility] Last Admin: 06/17/19 11:34 Dose: 20 gm Lactulose (Cephulac (Rectal Use)) 200 gm [place] TID PRN PRN Reason: AGITATION Nadolol (Corgard -) 40 mg PO DAILY [facility] Last Admin: 06/17/19 09:57 Dose: 40 mg Nitroglycerin (Nitrostat -) 0.4 mg SL Q5M PRN PRN Reason: FOR CHEST PAIN Last Admin: 06/09/19 02:05 Dose: 0.4 mg Potassium Chloride (K-Dur -) 40 meq PO DAILY [facility] Potassium Chloride (Potassium Chloride Oral Liquid) 40 meq PO HS ONE Stop: 06/17/19 22:01 Potassium Phos/Sodium Phos (Phos-Nak Packet -) 1 packet PO TID [facility] Stop: 06/18/19 06:01 Rifaximin (Xifaxan -) 550 mg PO BID [facility] Last Admin: 06/17/19 09:56 Dose: 550 mg Spironolactone (Aldactone -) 25 mg PO DAILY [facility] Last Admin: 06/17/19 09:57 Dose: 25 mg Tamsulosin HCl (Flomax -) 0.4 mg PO DAILY@0830 [facility] Last Admin: 06/17/19 09:57 Dose: 0.4 mg 74 year old gentleman with history of Alcoholic cirrhosis, hypertension, CHF presented with shortness of breath and increased abdominal girth and admitted for worsening ascities. 1. SOPHIE 2. Alcoholic cirrhosis with ascities 3. Anemia 4. Leukopenia/thrombocytopenia 5. CHF with volume overload 6. Hypertension 7. Hypokalemia Renal function improved and stable Decrease lasix to 80mg IV BID as weight and clincial status is improved Continue aldactone at present dose Ammonia levels improving continue Lactulos trend renal function and electrolytes Titrate lactulose to 2-3 BM's daily supplament potassium Ang Sanchez DO
[2019-06-17] MEDS: FUROSEMIDE 40 MG/4 ML INJECTABLE VIAL IVPUSH SCH (13:35)
[2019-06-17] MEDS: NAPH,MB-DB/K PH,MBDB POWDER PACKET PO SCH ×2 (13:35→22:24)
[2019-06-17] MEDS: ACETAMINOPHEN 325 MG TABLET (FP) PO PRN (16:37)
[2019-06-17] MEDS ORDERED: POTASSIUM CHLORIDE ORAL LIQUID 20 MEQ/15 ML PO ONE (22:00)
[2019-06-17 22:21] LABS: CREATININE 1.8 mg/dL (0.55-1.3)
[2019-06-17 22:22] LABS: BLOOD UREA NITROGEN 59.7 mg/dL (7-18); POTASSIUM 3.8 mmol/L (3.5-5.1)
[2019-06-18] MEDS: LACTULOSE 20 GM/30 ML UDC (FOR ORAL USE ONLY) PO SCH ×4 (00:10→18:25)
[2019-06-18] MEDS: FUROSEMIDE 40 MG/4 ML INJECTABLE VIAL IVPUSH SCH ×2 (06:21→15:55)
[2019-06-18] MEDS: NAPH,MB-DB/K PH,MBDB POWDER PACKET PO SCH (06:22)
[2019-06-18] MEDS: INSULIN SLIDING SCALE (NOVOLOG) 1 VIAL SQ SCH ×4 (06:28→23:10)
--- NOTE | 2019-06-18 10:07 | PN ---
Progress Note, [employer] - Note Progress Note: I was contacted by RD regarding pt's diet order and indication for reassessment. Per RD- Weight decreased significantly-likely r/t both diuresis and inadequate PO intake, which now improving. Ammonia levels improved. Family is not happy about pureed diet and would like diet upgraded. Per Pulmonary, pt is no longer congested. Nursing and ORE TRIMMER report frequent coughing mealtime, this am with difficulty with [place] although he tolerated pudding. Family has been educated regarding diet orders and not giving pt thin soda. Selected Entries 06/17/19 06/17/19 06/17/19 02:00 05:26 09:00 Breakfast Lunch Supper Temperature 97.5 F L 97.7 F 98 F 06/17/19 06/17/19 06/17/19 10:36 14:01 18:00 Breakfast 75% Lunch 100% Supper 50% Temperature 97.9 F 06/17/19 06/18/19 06/18/19 22:00 02:00 06:00 Breakfast Lunch Supper Temperature 97.6 F 98.3 F 98.1 F 06/18/19 09:00 Breakfast Lunch Supper Temperature 98 F Laboratory Tests 06/16/19 06/17/19 05:35 05:35 WBC 5.3 5.5 Pt asked for water. I gave him a small careful sip which resulted in vocal wetness and a strong responsive cough. c/w aspiration. [place] at bedside from his Grandson. Pt agreed to MBS, to provide most liberal diet that pt can safely tolerate. Pt educated on aspiration and choking risk with thin liquid/crackers and plan for MBS today.
--- NOTE | 2019-06-18 10:38 | DS ---
Physical Examination Vital Signs: Vital Signs Temperature 98 F 06/18/19 09:00 Pulse Rate 98 H 06/18/19 09:00 Respiratory Rate 18 06/18/19 09:00 Blood Pressure 124/64 06/18/19 09:00 O2 Sat by Pulse Oximetry (%) 96 06/17/19 21:00 Findings/Remarks: Patient is a 74 y/o male with past medical history of IDDM, Hepatic Encephalopathy, Liver Cirrhosis, Esophageal Varices, CHF, COPD, and HTN. Patient presented to [facility] for worsening SOB x 1 month accompanied with productive cough. Denies dizziness or chest pain with SOB. Patient also states that he has gained 50lbs and bilateral lower extremity swelling. Constitutional: Yes: Well Nourished, No Distress, Calm Cardiovascular: Yes: Regular Rate and Rhythm Respiratory: Yes: Regular Gastrointestinal: Yes: Normal Bowel Sounds, Soft, Abdomen, Obese, Ascites Renal/: Yes: Incontinence Musculoskeletal: Yes: Muscle Weakness Extremities: Yes: WNL Edema: Yes Edema: LLE: 1+, RLE: 1+ Peripheral Pulses WNL: Yes Neurological: Yes: Alert, Oriented Psychiatric: Yes: Alert, Oriented Labs: CBC, BMP 06/17/19 05:35 06/17/19 21:40 Discharge Summary Problems reviewed: Yes Reason For Visit: ACUTE KIDNEY INJURY,CHF,ELEVATED TROPONIN LEVEL Current Active Problems SOPHIE (acute kidney injury) (Acute) Acute on chronic respiratory failure with hypoxia and hypercapnia (Acute) Afib (Acute) Ascites (Acute) CHF (congestive heart failure) (Acute) Change in mental status (Acute) Hypokalemia (Acute) Pancytopenia (Acute) Troponin level elevated (Acute) Laboratory Last Values WBC 5.5 K/mm3 (4.0-10.0) 06/17/19 05:35 Corrected WBC (auto) Cancelled 06/02/19 05:54 RBC 3.16 M/mm3 (4.00-5.60) L 06/17/19 05:35 Hgb 10.5 GM/dL (11.7-16.9) L 06/17/19 05:35 Hct 31.4 % (35.4-49) L 06/17/19 05:35 MCV 99.3 fl (80-96) H 06/17/19 05:35 MCH 33.4 pg (25.7-33.7) 06/17/19 05:35 MCHC 33.6 g/dl (32.0-35.9) 06/17/19 05:35 RDW 15.5 % (11.9-15.9) 06/17/19 05:35 Plt Count 85 K/MM3 (134-434) L 06/17/19 05:35 MPV 9.7 fl (7.5-11.1) 06/17/19 05:35 Absolute Neuts (auto) 3.8 K/mm3 (1.5-8.0) 06/17/19 05:35 Neutrophils % 69.3 % (42.8-82.8) 06/17/19 05:35 Lymphocytes % 15.0 % (8-40) 06/17/19 05:35 Monocytes % 9.5 % (3.8-10.2) 06/17/19 05:35 Eosinophils % 5.8 % (0-4.5) H 06/17/19 05:35 Basophils % 0.4 % (0-2.0) 06/17/19 05:35 Nucleated RBC % 0 % (0-0) 06/17/19 05:35 Manual Slide Review Cancelled 06/02/19 05:54 Platelet Comment Cancelled 06/02/19 05:54 PT with INR 15.40 SEC (9.7-13.0) H 05/27/19 11:05 INR 1.30 (0.83-1.09) H 05/27/19 11:05 PTT (Actin FS) 37.5 SECONDS (25.2-36.5) H 05/27/19 11:05 Anticoagulation Therapy No Result Required. 06/16/19 13:30 Puncture Site Left radial 06/16/19 13:30 ABG pH 7.46 (7.35-7.45) H 06/16/19 13:30 ABG pCO2 at Pt Temp 62.8 mmHg (35-45) H 06/16/19 13:30 ABG pO2 at Pt Temp 57.2 mmHg (80-100) L 06/16/19 13:30 ABG HCO3 43.9 mmol/L (22-27) H 06/16/19 13:30 ABG O2 Sat (Measured) 88.4 % (95-98) L 06/16/19 13:30 ABG O2 Content 12.4 % vol 06/16/19 13:30 ABG Base Excess 17.3 meq/l (-2-2) H 06/16/19 13:30 Leonardo Test Positive 06/16/19 13:30 VBG pH 7.32 (7.31-7.41) 05/27/19 11:05 POC VBG pCO2 51.9 mmHg (38-52) 05/27/19 11:05 POC VBG pO2 < 49 mmHg (28-48) H 05/27/19 11:05 VBG HCO3 26.0 mmol/L (23-29) 05/27/19 11:05 VBG O2 Sat (Leti) 55.5 % (70-80) L 05/27/19 11:05 VBG Base Excess 0.1 meq/l (-2-2) 05/27/19 11:05 O2 Delivery Device N/c 06/16/19 13:30 Oxygen Flow Rate 3l 06/16/19 13:30 Vent Mode No Result Required. 06/16/19 13:30 Vent Rate No Result Required. 06/16/19 13:30 Mechanical Rate No Result Required. 06/16/19 13:30 Pressure Support Vent No Result Required. 06/16/19 13:30 Sodium 141 mmol/L (136-145) 06/17/19 21:40 Potassium 3.8 mmol/L (3.5-5.1) 06/17/19 21:40 Chloride 95 mmol/L (98-107) L 06/17/19 21:40 Carbon Dioxide 41 mmol/L (21-32) H 06/17/19 21:40 Anion Gap 6 MMOL/L (8-16) L 06/17/19 21:40 BUN 59.7 mg/dL (7-18) H 06/17/19 21:40 Creatinine 1.8 mg/dL (0.55-1.3) H 06/17/19 21:40 Est GFR (CKD-EPI)AfAm 42.33 06/17/19 21:40 Est GFR (CKD-EPI)NonAf 36.52 06/17/19 21:40 POC Glucometer 221 UNITS (80-120) 06/18/19 06:27 Random Glucose 255 mg/dL (74-106) H 06/17/19 21:40 Hemoglobin A1c % 5.5 % (4.2-6.3) 05/28/19 05:47 Calcium 9.0 mg/dL (8.5-10.1) 06/17/19 21:40 Phosphorus 2.0 mg/dL (2.5-4.9) L 06/17/19 05:35 Magnesium 2.1 mg/dL (1.8-2.4) 06/17/19 05:35 Iron 53 ug/dL (50-175) 05/28/19 05:47 TIBC 209 ug/dL (250-450) L 05/28/19 05:47 Iron Saturation 25 % (17.5-39) 05/28/19 05:47 Unsaturated IBC 156 ug/dL (200-275) L 05/28/19 05:47 Total Bilirubin 6.1 mg/dL (0.2-1) H 06/17/19 05:35 AST 29 U/L (15-37) 06/17/19 05:35 ALT 25 U/L (13-61) 06/17/19 05:35 Alkaline Phosphatase 176 U/L (45-117) H 06/17/19 05:35 Ammonia 66.90 umol/L (11-32) H 06/16/19 05:35 Creatine Kinase 42 U/L (26-308) 05/28/19 05:47 Troponin I 0.06 ng/ml (0.00-0.05) H 06/09/19 02:45 B-Natriuretic Peptide 4235.7 pg/ml (5-125) H 05/28/19 05:47 Total Protein 6.0 g/dl (6.4-8.2) L 06/17/19 05:35 Total Protein (PEP) 5.3 g/dL (6.0-8.5) L 05/28/19 05:47 Albumin 3.0 g/dl (3.4-5.0) L 06/17/19 05:35 Albumin (PEP) 2.6 gm/dl (2.9-4.4) L 05/28/19 05:47 Globulin 2.7 g/dL (2.2-3.9) 05/28/19 05:47 Albumin/Globulin Ratio 1.0 (0.7-1.7) 05/28/19 05:47 Beta Globulins 0.9 gm/dL (0.7-1.3) 05/28/19 05:47 Triglycerides 67 mg/dL (0-150) 05/28/19 05:47 Cholesterol 152 mg/dL (50-200) 05/28/19 05:47 Total LDL Cholesterol 86 mg/dL (5-100) 05/28/19 05:47 HDL Cholesterol 49 mg/dL (40-60) 05/28/19 05:47 Tumor Marker AFP < 0.7 ng/ml (0.0-8.3) 05/29/19 06:40 Vitamin B12 905 pg/ml (193-986) 05/28/19 05:47 Folate 1626 ng/mL (>498) 05/28/19 05:47 Folate Hemolysate 424.4 ng/mL (Not Estab.) 05/28/19 05:47 TSH 1.26 uIU/ml (0.358-3.74) D 05/28/19 05:47 Urine Color Dk yellow 05/27/19 15:40 Urine Appearance Clear 05/27/19 15:40 Urine pH 5.5 (5.0-8.0) 05/27/19 15:40 Ur Specific [place] 1.021 (1.010-1.035) 05/27/19 15:40 Urine Protein 1+ (NEGATIVE) H 05/27/19 15:40 Urine Glucose (UA) Trace (NEGATIVE) 05/27/19 15:40 Urine Ketones Trace (NEGATIVE) H 05/27/19 15:40 Urine Blood Negative (NEGATIVE) 05/27/19 15:40 Urine Nitrite Negative (NEGATIVE) 05/27/19 15:40 Urine Bilirubin 1+ (NEGATIVE) H 05/27/19 15:40 Urine Urobilinogen 1.0 mg/dL (0.2-1.0) 05/27/19 15:40 Ur Leukocyte Esterase Negative (NEGATIVE) 05/27/19 15:40 Urine WBC (Auto) 1 /hpf (0-5) 05/27/19 15:40 Urine RBC (Auto) 4 /hpf (0-4) 05/27/19 15:40 Urine Casts (Auto) 5 /lpf (0-8) 05/27/19 15:40 U Epithel Cells (Auto) 1.9 /HPF (0-5/HPF) 05/27/19 15:40 Urine Bacteria (Auto) 0.3 /hpf (NEGATIVE) 05/27/19 15:40 U Random Total Protein 13.5 mg/dL (0-11.9) H 05/29/19 17:10 Urine Creatinine 79.0 mg/dL (20-320) 05/29/19 17:10 Protein/Creatinin Ratio 0.2 mg/dL 05/29/19 17:10 JERONIMO M[place] g/dL (Not Observed) 05/28/19 05:47 Microbiology 05/27/19 15:40 Urine - Urine Clean Catch Urine Culture - Final NO GROWTH OBTAINED Vital Signs Temp 98 F 06/18/19 09:00 Pulse 98 H 06/18/19 09:00 Resp 18 06/18/19 09:00 BP 124/64 06/18/19 09:00 Pulse Ox 96 06/17/19 21:00 Intake & Output 06/17/19 06/17/19 06/18/19 11:59 23:59 11:59 Intake Total 365 320 170 Balance 365 320 170 Weight 107.104 kg 106.141 kg Intake: IV 50 20 #22 LATONYA 50 20 Oral 315 320 150 Other: Voiding Method Incontinent Diaper Incontinent # Unmeasured Voids Void 2 2 Bowel Movement Yes No Yes # Bowel Movements 2 2 Body Mass Index (BMI) 30.2 Weight Measurement Method Built in [facility] Built in [facility] Hospital Course: ADMITTED CIRRHOSIS, FLUID OVERLOAD, TREATED WITH GI/CARDIO/RENAL FOR CONGESTIVE HF, CRF, ARF, CIRRHOSIS ETOH, TOXIC METABOLIC ENCEPHALOPTHY, CONFUSION, EDEMA. Plan of Treatment: DIURESE WITH TORSEMIDE 60MG DAILY AND ALDACTONE 25MG DAILY, THEN TAPER OFF METOLAZONE FROM 5MG DAILY FOR 2 DAYS THEN 2.5MG DAILT FOR 2 DAYS THEN EVERY OTHER DAY FOR 1 WEEK. Goals: CHECK LABS BMP EVERY 3 DAYS TAPER OFF METOLAZONE Condition: Guarded - Instructions Diet, Activity, Other Instructions: DIURETICS TORSEMIDE 60MG DAILY ALDACTONE 25MG DAILT THEN TAPER OFF METOLAZONE FROM 5MG DAILY TO 2.5MG DAILY YHEN EVERY OTHER DAY NEEDED CHECK BMP EVERY 3 DAYS NO AC/ANTIPLATLETS BECAUSE OF LIVER FAILURE GI AND CARDIO FOLLOW UP RENAL FOLLOW UP Referrals: Nidhi Vargas MD [Primary Care Provider] - Disposition: [facility] FACILITY - Home Medications Comprehensive Discharge Medication List: Ambulatory Orders Omeprazole 20 mg PO DAILY 11/05/18 Tamsulosin HCl [Flomax] 0.4 mg PO DAILY 11/05/18 Rifaximin [Xifaxan -] 550 mg PO BID #60 tablet 11/08/18 Lactulose 10 gm PO BID 03/28/19 Spironolactone 25 mg PO DAILY 03/28/19 Insulin Sliding Scale [Novolog Vial Sliding Scale -] 1 vial SQ ACHS units 04/05 Nadolol [Corgard -] 40 mg PO DAILY tablet 04/05/19 Polyethylene Glycol 3350 [Miralax 119 gm Btl -] 34 gm PO BID bottle 04/05/19 Acetaminophen [Tylenol] 650 mg PO TID 05/27/19 Ascorbate Calcium [Vitamin C] 500 mg PO DAILY 05/27/19 Calcium (Oyster Shell) [Os-Gerhard 500Mg -] 500 mg PO DAILY 05/27/19 Dextran 70/Hypromellose/Pf [Artificial Tears Drops] 1 each OP DAILY 05/27/19 Ferrous Sulfate 325 mg PO DAILY 05/27/19 Insulin (Levemir) [Levemir Vial] 25 unit SQ AM 05/27/19
[2019-06-18 11:03] LABS: BASO % 0.4 % (0-2.0); EOS % 5.3 % (0-4.5); HEMATOCRIT 32.3 % (35.4-49); HEMOGLOBIN 10.9 GM/dL (11.7-16.9); LYMPH % 16.3 % (8-40); MCH 33.2 pg (25.7-33.7); MCHC 33.6 g/dl (32.0-35.9); MEAN CELL VOLUME 98.8 fl (80-96); MEAN PLT VOLUME 9.2 fl (7.5-11.1); MONO % 9.1 % (3.8-10.2); NEUT % 68.9 % (42.8-82.8); PLATELET COUNT 90 K/MM3 (134-434); RBC 3.27 M/mm3 (4.00-5.60); RDW 15.5 % (11.9-15.9); WHITE BLOOD COUNT 6.2 K/mm3 (4.0-10.0)
[2019-06-18] MEDS ORDERED: PT OWN MED DRAWER 7, Y5N ONE ×2 (11:08→23:04)
[2019-06-18] MEDS: TAMSULOSIN HCL 0.4 MG CAP PO SCH (11:09)
[2019-06-18] MEDS: POTASSIUM CHLORIDE TABS 20 MEQ TABLET.ER (FP) PO SCH (11:10)
[2019-06-18] MEDS: RIFAXIMIN 550 MG TABLET (UD) PO SCH ×2 (11:10→23:10)
[2019-06-18] MEDS: NADOLOL 40 MG TABLET (FP) PO SCH (11:10)
[2019-06-18] MEDS: SPIRONOLACTONE 25 MG TABLET (FP) PO SCH (11:10)
[2019-06-18] MEDS: AMMONIUM LACTATE 12% LOTION 225 GM BOTTLE TP SCH ×2 (11:12→23:10)
--- NOTE | 2019-06-18 11:16 | PN ---
Progress Note, Physician History of Present Illness: PULMONARY AWAKE,NO DISTRESS,-TACHYPNEA - Current Medication List Current Medications: Active Medications Acetaminophen (Tylenol -) 650 mg PO Q6H PRN PRN Reason: PAIN LEVEL 1-5 Last Admin: 06/17/19 16:37 Dose: 650 mg Albuterol Sulfate (Ventolin 0.083% Nebulizer Soln -) 1 amp NEB Q6H PRN PRN Reason: SHORT OF BREATH/WHEEZING Last Admin: 06/16/19 20:16 Dose: 1 amp Artificial Tears (Artificial Tears) 1 drop OU Q12H PRN PRN Reason: DRY EYES Last Admin: 06/08/19 21:25 Dose: 1 drop Furosemide (Lasix Injection -) 80 mg IVPUSH BID@0600,1400 [facility] Last Admin: 06/18/19 06:21 Dose: 80 mg Insulin Aspart (Novolog Vial Sliding Scale -) 1 vial SQ ACHS [facility]; Protocol Last Admin: 06/18/19 06:28 Dose: 2 units Lactic Acid (Lac-Hydrin 12) 1 applic TP BID [facility] Last Admin: 06/18/19 11:12 Dose: 1 applic Lactulose (Cephulac (Oral Use)) 20 gm PO Q6HPO [facility] Last Admin: 06/18/19 11:12 Dose: 20 gm Lactulose (Cephulac (Rectal Use)) 200 gm [place] TID PRN PRN Reason: AGITATION Nadolol (Corgard -) 40 mg PO DAILY [facility] Last Admin: 06/18/19 11:10 Dose: 40 mg Nitroglycerin (Nitrostat -) 0.4 mg SL Q5M PRN PRN Reason: FOR CHEST PAIN Last Admin: 06/09/19 02:05 Dose: 0.4 mg Potassium Chloride (K-Dur -) 40 meq PO DAILY [facility] Last Admin: 06/18/19 11:10 Dose: 40 meq Rifaximin (Xifaxan -) 550 mg PO BID [facility] Last Admin: 06/18/19 11:10 Dose: 550 mg Spironolactone (Aldactone -) 25 mg PO DAILY [facility] Last Admin: 06/18/19 11:10 Dose: 25 mg Tamsulosin HCl (Flomax -) 0.4 mg PO DAILY@0830 [facility] Last Admin: 06/18/19 11:09 Dose: 0.4 mg - Objective Vital Signs: Vital Signs Temperature 98 F 06/18/19 09:00 Pulse Rate 98 H 06/18/19 09:00 Respiratory Rate 18 06/18/19 09:00 Blood Pressure 124/64 06/18/19 09:00 O2 Sat by Pulse Oximetry (%) 96 06/17/19 21:00 Constitutional: Yes: Calm, Obese Eyes: Yes: WNL HENT: Yes: WNL Neck: Yes: WNL Cardiovascular: Yes: Regular Rate and Rhythm, S1, S2 Respiratory: Yes: Diminished Gastrointestinal: Yes: Normal Bowel Sounds, Soft Extremities: Yes: WNL Edema: Yes Labs: CBC, BMP 06/18/19 10:40 INR, PTT INR 1.30 (0.83-1.09) H 05/27/19 11:05 Problem List - Problems (1) SOPHIE (acute kidney injury) Code(s): N17.9 - ACUTE KIDNEY FAILURE, UNSPECIFIED (2) CHF (congestive heart failure) Code(s): I50.9 - HEART FAILURE, UNSPECIFIED Qualifiers: Heart failure type: unspecified Heart failure chronicity: acute on chronic Qualified Code(s): I50.9 - Heart failure, unspecified (3) Pancytopenia Code(s): D61.818 - OTHER PANCYTOPENIA (4) Acute renal failure (ARF) Code(s): N17.9 - ACUTE KIDNEY FAILURE, UNSPECIFIED (5) Altered mental status Code(s): R41.82 - ALTERED MENTAL STATUS, UNSPECIFIED Qualifiers: Altered mental status type: disorientation Qualified Code(s): R41.0 - Disorientation, unspecified (6) Anemia Code(s): D64.9 - ANEMIA, UNSPECIFIED (7) COPD (chronic obstructive pulmonary disease) Code(s): J44.9 - CHRONIC OBSTRUCTIVE PULMONARY DISEASE, UNSPECIFIED (8) Chronic systolic congestive heart failure Code(s): I50.22 - CHRONIC SYSTOLIC (CONGESTIVE) HEART FAILURE (9) Cirrhosis of liver Code(s): K74.60 - UNSPECIFIED CIRRHOSIS OF LIVER (10) Esophageal varices Code(s): I85.00 - ESOPHAGEAL VARICES WITHOUT BLEEDING (11) Hepatic encephalopathy Code(s): K72.90 - HEPATIC FAILURE, UNSPECIFIED WITHOUT COMA (12) Hypoxia Code(s): R09.02 - HYPOXEMIA (13) Acute on chronic respiratory failure with hypoxia and hypercapnia Code(s): J96.21 - ACUTE AND CHRONIC RESPIRATORY FAILURE WITH HYPOXIA; J96.22 - ACUTE AND CHRONIC RESPIRATORY FAILURE WITH HYPERCAPNIA Assessment/Plan IMP DYSPNEA improved CHF IMPROVING ACUTE ON CHRONIC HYPOXEMIC/HYPERCAPNEIC RESPIRATORY FAILURE IMPROVED VOLUME OVERLOAD IMPROVING ASCITES COPD O2 DEPENDENT PLEURAL EFFUSION HEPATIC ENCEPHALOPATHY DM CIRRHOSIS WITH ESOPHAGEAL VARICES S/P BANDING THROMBOCYTOPENIA SOPHIE H/O ETOH PLAN DIURETICS O2 DAILY WTS MONITOR LYTES,RENAL FUNCTION MONITOR H+H LACTULOSE FOLLOW AMMONIA LEVEL DR COLLAZO Problem List - Problems (1) SOPHIE (acute kidney injury) Code(s): N17.9 - ACUTE KIDNEY FAILURE, UNSPECIFIED (2) CHF (congestive heart failure) Code(s): I50.9 - HEART FAILURE, UNSPECIFIED Qualifiers: Heart failure type: unspecified Heart failure chronicity: acute on chronic Qualified Code(s): I50.9 - Heart failure, unspecified (3) Pancytopenia Code(s): D61.818 - OTHER PANCYTOPENIA (4) Acute renal failure (ARF) Code(s): N17.9 - ACUTE KIDNEY FAILURE, UNSPECIFIED (5) Altered mental status Code(s): R41.82 - ALTERED MENTAL STATUS, UNSPECIFIED Qualifiers: Altered mental status type: disorientation Qualified Code(s): R41.0 - Disorientation, unspecified (6) Anemia Code(s): D64.9 - ANEMIA, UNSPECIFIED (7) COPD (chronic obstructive pulmonary disease) Code(s): J44.9 - CHRONIC OBSTRUCTIVE PULMONARY DISEASE, UNSPECIFIED (8) Chronic systolic congestive heart failure Code(s): I50.22 - CHRONIC SYSTOLIC (CONGESTIVE) HEART FAILURE (9) Cirrhosis of liver Code(s): K74.60 - UNSPECIFIED CIRRHOSIS OF LIVER (10) Esophageal varices Code(s): I85.00 - ESOPHAGEAL VARICES WITHOUT BLEEDING (11) Hepatic encephalopathy Code(s): K72.90 - HEPATIC FAILURE, UNSPECIFIED WITHOUT COMA (12) Hypoxia Code(s): R09.02 - HYPOXEMIA (13) Acute on chronic respiratory failure with hypoxia and hypercapnia Code(s): J96.21 - ACUTE AND CHRONIC RESPIRATORY FAILURE WITH HYPOXIA; J96.22 - ACUTE AND CHRONIC RESPIRATORY FAILURE WITH HYPERCAPNIA
[2019-06-18 11:32] LABS: ALBUMIN 2.9 g/dl (3.4-5.0); BLOOD UREA NITROGEN 63.5 mg/dL (7-18); CALCIUM 8.8 mg/dL (8.5-10.1); CREATININE 1.7 mg/dL (0.55-1.3); POTASSIUM 3.8 mmol/L (3.5-5.1)
--- NOTE | 2019-06-18 13:06 | PN ---
Progress Note (short form) - Note Progress Note: Renal follow up for SOPHIE/CKD Seen and examined at the bedside awake and alert has been coughing a significant amount as per nurse going for swallow eval no other complaints Vital Signs Temperature 98 F 06/18/19 09:00 Pulse Rate 98 H 06/18/19 09:00 Respiratory Rate 18 06/18/19 09:00 Blood Pressure 124/64 06/18/19 09:00 O2 Sat by Pulse Oximetry (%) 96 06/17/19 21:00 Intake & Output 06/15/19 06/16/19 06/17/19 06/18/19 23:59 23:59 23:59 23:59 Intake Total 670 670 685 460 Output Total 200 Balance 470 670 685 460 Weight 115.575 kg 107.547 kg 107.104 kg 106.141 kg NAD awake and alert neck supple RRR Dec BS + abd ascities + LE edema CBC, BMP 06/18/19 10:40 06/18/19 10:40 Current Medications Acetaminophen (Tylenol -) 650 mg PO Q6H PRN PRN Reason: PAIN LEVEL 1-5 Last Admin: 06/17/19 16:37 Dose: 650 mg Albuterol Sulfate (Ventolin 0.083% Nebulizer Soln -) 1 amp NEB Q6H PRN PRN Reason: SHORT OF BREATH/WHEEZING Last Admin: 06/16/19 20:16 Dose: 1 amp Artificial Tears (Artificial Tears) 1 drop OU Q12H PRN PRN Reason: DRY EYES Last Admin: 06/08/19 21:25 Dose: 1 drop Furosemide (Lasix Injection -) 80 mg IVPUSH BID@0600,1400 [facility] Last Admin: 06/18/19 06:21 Dose: 80 mg Insulin Aspart (Novolog Vial Sliding Scale -) 1 vial SQ ACHS [facility]; Protocol Last Admin: 06/18/19 06:28 Dose: 2 units Lactic Acid (Lac-Hydrin 12) 1 applic TP BID [facility] Last Admin: 06/18/19 11:12 Dose: 1 applic Lactulose (Cephulac (Oral Use)) 20 gm PO Q6HPO [facility] Last Admin: 06/18/19 11:12 Dose: 20 gm Lactulose (Cephulac (Rectal Use)) 200 gm [place] TID PRN PRN Reason: AGITATION Nadolol (Corgard -) 40 mg PO DAILY [facility] Last Admin: 06/18/19 11:10 Dose: 40 mg Nitroglycerin (Nitrostat -) 0.4 mg SL Q5M PRN PRN Reason: FOR CHEST PAIN Last Admin: 06/09/19 02:05 Dose: 0.4 mg Potassium Chloride (K-Dur -) 40 meq PO DAILY [facility] Last Admin: 06/18/19 11:10 Dose: 40 meq Rifaximin (Xifaxan -) 550 mg PO BID [facility] Last Admin: 06/18/19 11:10 Dose: 550 mg Spironolactone (Aldactone -) 25 mg PO DAILY [facility] Last Admin: 06/18/19 11:10 Dose: 25 mg Tamsulosin HCl (Flomax -) 0.4 mg PO DAILY@0830 [facility] Last Admin: 06/18/19 11:09 Dose: 0.4 mg 74 year old gentleman with history of Alcoholic cirrhosis, hypertension, CHF presented with shortness of breath and increased abdominal girth and admitted for worsening ascities. 1. SOPHIE 2. Alcoholic cirrhosis with ascities 3. Anemia 4. Leukopenia/thrombocytopenia 5. CHF with volume overload 6. Hypertension 7. Hypokalemia Renal function stable continue IV Lasix for now check chest x-ray to access for pulmonary congestion as possible reason for cough if no chest congestion can transition to oral lasix 80mg BID Continue aldactone at present dose trend renal function and electrolytes Titrate lactulose to 2-3 BM's daily Ang Sanchez DO
--- NOTE | 2019-06-18 15:38 | PN ---
Progress Note (short form) - Note Progress Note: FUV b/l feet. +improved lesions sub met 1 b/l hypertrophic lesions resolving Continue ammonium lactate. Foot care q8 weeks. Will follow.
[2019-06-18] MEDS: MELATONIN 5 MG TABLETS PO PRN (23:17)
[2019-06-19] MEDS: LACTULOSE 20 GM/30 ML UDC (FOR ORAL USE ONLY) PO SCH ×4 (00:30→17:19)
[2019-06-19] MEDS: FUROSEMIDE 40 MG/4 ML INJECTABLE VIAL IVPUSH SCH (06:31)
[2019-06-19] MEDS: INSULIN SLIDING SCALE (NOVOLOG) 1 VIAL SQ SCH ×4 (06:41→22:51)
[2019-06-19 07:40] LABS: BASO % 0.6 % (0-2.0); EOS % 5.7 % (0-4.5); HEMATOCRIT 32.8 % (35.4-49); HEMOGLOBIN 11.2 GM/dL (11.7-16.9); LYMPH % 15.7 % (8-40); MCH 33.7 pg (25.7-33.7); MCHC 34.3 g/dl (32.0-35.9); MEAN CELL VOLUME 98.4 fl (80-96); MEAN PLT VOLUME 9.1 fl (7.5-11.1); MONO % 7.7 % (3.8-10.2); NEUT % 70.3 % (42.8-82.8); PLATELET COUNT 94 K/MM3 (134-434); RBC 3.34 M/mm3 (4.00-5.60); RDW 15.7 % (11.9-15.9); WHITE BLOOD COUNT 7.1 K/mm3 (4.0-10.0)
[2019-06-19 08:38] LABS: BILIRUBIN,TOTAL 7.6 mg/dL (0.2-1); CALCIUM 9.1 mg/dL (8.5-10.1); CREATININE 1.8 mg/dL (0.55-1.3); POTASSIUM 3.9 mmol/L (3.5-5.1); TOT PROT 6.2 g/dl (6.4-8.2)
[2019-06-19] MEDS: TAMSULOSIN HCL 0.4 MG CAP PO SCH (10:18)
[2019-06-19] MEDS: POTASSIUM CHLORIDE TABS 20 MEQ TABLET.ER (FP) PO SCH (10:19)
[2019-06-19] MEDS: NADOLOL 40 MG TABLET (FP) PO SCH (10:19)
[2019-06-19] MEDS: SPIRONOLACTONE 25 MG TABLET (FP) PO SCH (10:19)
[2019-06-19] MEDS: RIFAXIMIN 550 MG TABLET (UD) PO SCH ×2 (10:20→22:46)
[2019-06-19] MEDS: AMMONIUM LACTATE 12% LOTION 225 GM BOTTLE TP SCH ×2 (10:21→22:47)
--- NOTE | 2019-06-19 10:42 | PN ---
Progress Note, Physician History of Present Illness: PULMONARY MORE DROWSY TODAY,-RESP DISTRESS - Current Medication List Current Medications: Active Medications Acetaminophen (Tylenol -) 650 mg PO Q6H PRN PRN Reason: PAIN LEVEL 1-5 Last Admin: 06/17/19 16:37 Dose: 650 mg Albuterol Sulfate (Ventolin 0.083% Nebulizer Soln -) 1 amp NEB Q6H PRN PRN Reason: SHORT OF BREATH/WHEEZING Last Admin: 06/16/19 20:16 Dose: 1 amp Artificial Tears (Artificial Tears) 1 drop OU Q12H PRN PRN Reason: DRY EYES Last Admin: 06/08/19 21:25 Dose: 1 drop Furosemide (Lasix Injection -) 80 mg IVPUSH BID@0600,1400 [facility] Last Admin: 06/19/19 06:31 Dose: 80 mg Insulin Aspart (Novolog Vial Sliding Scale -) 1 vial SQ ACHS [facility]; Protocol Last Admin: 06/19/19 06:41 Dose: 2 units Lactic Acid (Lac-Hydrin 12) 1 applic TP BID [facility] Last Admin: 06/19/19 10:21 Dose: 1 applic Lactulose (Cephulac (Oral Use)) 20 gm PO Q6HPO [facility] Last Admin: 06/19/19 06:30 Dose: 20 gm Lactulose (Cephulac (Rectal Use)) 200 gm [place] TID PRN PRN Reason: AGITATION Melatonin (Melatonin) 5 mg PO HS PRN PRN Reason: INSOMNIA Last Admin: 06/18/19 23:17 Dose: 5 mg Nadolol (Corgard -) 40 mg PO DAILY [facility] Last Admin: 06/19/19 10:19 Dose: 40 mg Nitroglycerin (Nitrostat -) 0.4 mg SL Q5M PRN PRN Reason: FOR CHEST PAIN Last Admin: 06/09/19 02:05 Dose: 0.4 mg Potassium Chloride (K-Dur -) 40 meq PO DAILY [facility] Last Admin: 06/19/19 10:19 Dose: 40 meq Rifaximin (Xifaxan -) 550 mg PO BID [facility] Last Admin: 06/19/19 10:20 Dose: 550 mg Spironolactone (Aldactone -) 25 mg PO DAILY [facility] Last Admin: 06/19/19 10:19 Dose: 25 mg Tamsulosin HCl (Flomax -) 0.4 mg PO DAILY@0830 [facility] Last Admin: 06/19/19 10:18 Dose: 0.4 mg - Objective Vital Signs: Vital Signs Temperature 98.3 F 06/19/19 06:00 Pulse Rate 101 H 06/19/19 06:00 Respiratory Rate 20 06/19/19 06:00 Blood Pressure 129/73 06/19/19 06:00 O2 Sat by Pulse Oximetry (%) 98 06/18/19 21:00 Constitutional: Yes: Obese, Other (DROWSY) HENT: Yes: WNL Neck: Yes: WNL Cardiovascular: Yes: Regular Rate and Rhythm, S1, S2 Extremities: Yes: WNL Edema: Yes Labs: CBC, BMP 06/19/19 06:15 06/19/19 06:15 INR, PTT INR 1.30 (0.83-1.09) H 05/27/19 11:05 Laboratory Tests 06/18/19 10:40 Ammonia 103.10 H Problem List - Problems (1) SOPHIE (acute kidney injury) Code(s): N17.9 - ACUTE KIDNEY FAILURE, UNSPECIFIED (2) CHF (congestive heart failure) Code(s): I50.9 - HEART FAILURE, UNSPECIFIED Qualifiers: Heart failure type: unspecified Heart failure chronicity: acute on chronic Qualified Code(s): I50.9 - Heart failure, unspecified (3) Pancytopenia Code(s): D61.818 - OTHER PANCYTOPENIA (4) Acute renal failure (ARF) Code(s): N17.9 - ACUTE KIDNEY FAILURE, UNSPECIFIED (5) Altered mental status Code(s): R41.82 - ALTERED MENTAL STATUS, UNSPECIFIED Qualifiers: Altered mental status type: disorientation Qualified Code(s): R41.0 - Disorientation, unspecified (6) Anemia Code(s): D64.9 - ANEMIA, UNSPECIFIED (7) COPD (chronic obstructive pulmonary disease) Code(s): J44.9 - CHRONIC OBSTRUCTIVE PULMONARY DISEASE, UNSPECIFIED (8) Chronic systolic congestive heart failure Code(s): I50.22 - CHRONIC SYSTOLIC (CONGESTIVE) HEART FAILURE (9) Cirrhosis of liver Code(s): K74.60 - UNSPECIFIED CIRRHOSIS OF LIVER (10) Esophageal varices Code(s): I85.00 - ESOPHAGEAL VARICES WITHOUT BLEEDING (11) Hepatic encephalopathy Code(s): K72.90 - HEPATIC FAILURE, UNSPECIFIED WITHOUT COMA (12) Hypoxia Code(s): R09.02 - HYPOXEMIA (13) Acute on chronic respiratory failure with hypoxia and hypercapnia Code(s): J96.21 - ACUTE AND CHRONIC RESPIRATORY FAILURE WITH HYPOXIA; J96.22 - ACUTE AND CHRONIC RESPIRATORY FAILURE WITH HYPERCAPNIA Assessment/Plan IMP DYSPNEA improved CHF IMPROVING ACUTE ON CHRONIC HYPOXEMIC/HYPERCAPNEIC RESPIRATORY FAILURE IMPROVED VOLUME OVERLOAD IMPROVING ASCITES COPD O2 DEPENDENT PLEURAL EFFUSION HEPATIC ENCEPHALOPATHY DM CIRRHOSIS WITH ESOPHAGEAL VARICES S/P BANDING THROMBOCYTOPENIA SOPHIE H/O ETOH PLAN DIURETICS O2 DAILY WTS MONITOR LYTES,RENAL FUNCTION MONITOR H+H LACTULOSE AMMONIA LEVEL DR COLLAZO Problem List - Problems (1) SOPHIE (acute kidney injury) Code(s): N17.9 - ACUTE KIDNEY FAILURE, UNSPECIFIED (2) CHF (congestive heart failure) Code(s): I50.9 - HEART FAILURE, UNSPECIFIED Qualifiers: Heart failure type: unspecified Heart failure chronicity: acute on chronic Qualified Code(s): I50.9 - Heart failure, unspecified (3) Pancytopenia Code(s): D61.818 - OTHER PANCYTOPENIA (4) Acute renal failure (ARF) Code(s): N17.9 - ACUTE KIDNEY FAILURE, UNSPECIFIED (5) Altered mental status Code(s): R41.82 - ALTERED MENTAL STATUS, UNSPECIFIED Qualifiers: Altered mental status type: disorientation Qualified Code(s): R41.0 - Disorientation, unspecified (6) Anemia Code(s): D64.9 - ANEMIA, UNSPECIFIED (7) COPD (chronic obstructive pulmonary disease) Code(s): J44.9 - CHRONIC OBSTRUCTIVE PULMONARY DISEASE, UNSPECIFIED (8) Chronic systolic congestive heart failure Code(s): I50.22 - CHRONIC SYSTOLIC (CONGESTIVE) HEART FAILURE (9) Cirrhosis of liver Code(s): K74.60 - UNSPECIFIED CIRRHOSIS OF LIVER (10) Esophageal varices Code(s): I85.00 - ESOPHAGEAL VARICES WITHOUT BLEEDING (11) Hepatic encephalopathy Code(s): K72.90 - HEPATIC FAILURE, UNSPECIFIED WITHOUT COMA (12) Hypoxia Code(s): R09.02 - HYPOXEMIA (13) Acute on chronic respiratory failure with hypoxia and hypercapnia Code(s): J96.21 - ACUTE AND CHRONIC RESPIRATORY FAILURE WITH HYPOXIA; J96.22 - ACUTE AND CHRONIC RESPIRATORY FAILURE WITH HYPERCAPNIA
[2019-06-19 11:24] LABS: ARTERIAL BLD GAS O2 SATURATION 97.1 % (95-98); ARTERIAL BLOOD GAS BASE EXCESS 16.7 meq/l (-2-2); ARTERIAL BLOOD GAS PCO2 51.4 mmHg (35-45); ARTERIAL BLOOD GAS PO2 84.3 mmHg (80-100)
[2019-06-19 11:25] LABS: ALLENS TEST POSITIVE
[2019-06-19] MEDS ORDERED: INSULIN (NOVOLOG) ASPART 100 UNITS/ML 10ML VIAL ONE (11:39)
--- NOTE | 2019-06-19 12:24 | PN ---
Progress Note, Physician Chief Complaint: patient seen and examined he is able to respond to his name and tell he his says he feels lousy - Current Medication List Current Medications: Active Medications Acetaminophen (Tylenol -) 650 mg PO Q6H PRN PRN Reason: PAIN LEVEL 1-5 Last Admin: 06/17/19 16:37 Dose: 650 mg Albuterol Sulfate (Ventolin 0.083% Nebulizer Soln -) 1 amp NEB Q6H PRN PRN Reason: SHORT OF BREATH/WHEEZING Last Admin: 06/16/19 20:16 Dose: 1 amp Artificial Tears (Artificial Tears) 1 drop OU Q12H PRN PRN Reason: DRY EYES Last Admin: 06/08/19 21:25 Dose: 1 drop Furosemide (Lasix -) 100 mg PO BID@0600,1400 [facility] Insulin Aspart (Novolog Vial Sliding Scale -) 1 vial SQ ACHS [facility]; Protocol Last Admin: 06/19/19 11:44 Dose: 2 units Lactic Acid (Lac-Hydrin 12) 1 applic TP BID [facility] Last Admin: 06/19/19 10:21 Dose: 1 applic Lactulose (Cephulac (Oral Use)) 20 gm PO Q6HPO [facility] Last Admin: 06/19/19 11:44 Dose: 20 gm Lactulose (Cephulac (Rectal Use)) 200 gm [place] TID PRN PRN Reason: AGITATION Melatonin (Melatonin) 5 mg PO HS PRN PRN Reason: INSOMNIA Last Admin: 06/18/19 23:17 Dose: 5 mg Nadolol (Corgard -) 40 mg PO DAILY [facility] Last Admin: 06/19/19 10:19 Dose: 40 mg Nitroglycerin (Nitrostat -) 0.4 mg SL Q5M PRN PRN Reason: FOR CHEST PAIN Last Admin: 06/09/19 02:05 Dose: 0.4 mg Potassium Chloride (K-Dur -) 40 meq PO DAILY [facility] Last Admin: 06/19/19 10:19 Dose: 40 meq Rifaximin (Xifaxan -) 550 mg PO BID [facility] Last Admin: 06/19/19 10:20 Dose: 550 mg Spironolactone (Aldactone -) 25 mg PO DAILY [facility] Last Admin: 06/19/19 10:19 Dose: 25 mg Tamsulosin HCl (Flomax -) 0.4 mg PO DAILY@0830 [facility] Last Admin: 06/19/19 10:18 Dose: 0.4 mg - Objective Vital Signs: Vital Signs Temperature 98.1 F 06/19/19 10:00 Pulse Rate 85 06/19/19 10:00 Respiratory Rate 21 H 06/19/19 10:00 Blood Pressure 127/70 06/19/19 10:00 O2 Sat by Pulse Oximetry (%) 100 06/19/19 09:00 Constitutional: Yes: Calm Eyes: Yes: Sclera Icterus Cardiovascular: Yes: Regular Rate and Rhythm, S1, S2 Respiratory: Yes: Diminished Gastrointestinal: Yes: Soft Edema: Yes Labs: CBC, BMP 06/19/19 06:15 06/19/19 06:15 INR, PTT INR 1.30 (0.83-1.09) H 05/27/19 11:05 Problem List - Problems (1) Change in mental status Assessment/Plan: repeat ammonia level ordered for today Code(s): R41.82 - ALTERED MENTAL STATUS, UNSPECIFIED (2) Cirrhosis of liver Assessment/Plan: aldactone ,nadolol,rifaximin, ultrasound shows liver mass in left lobe lactulose dose increase ammonia level pending today Code(s): K74.60 - UNSPECIFIED CIRRHOSIS OF LIVER (3) CHF (congestive heart failure) Assessment/Plan: iv lasix dose increase to 60mg bid to 100mg bid albumin completed echo left ventricle systolic function is severly reduced chest ct show right side pleural effusion more than left side pleural effusion Code(s): I50.9 - HEART FAILURE, UNSPECIFIED Qualifiers: Heart failure type: unspecified Heart failure chronicity: acute on chronic Qualified Code(s): I50.9 - Heart failure, unspecified (4) Ascites Assessment/Plan: continue with lasix and now on aldactone Code(s): R18.8 - OTHER ASCITES (5) Type II diabetes mellitus, uncontrolled Assessment/Plan: patient is eating dysphagia diet bgm noted elevated restart levemir and uptitrate bgm and sliding scale Code(s): E11.65 - TYPE 2 DIABETES MELLITUS WITH HYPERGLYCEMIA (6) Acquired thrombocytopenia Assessment/Plan: secondary to cirrhosis/hyperslenism platelet count is now stable continue to monitor Code(s): D69.59 - OTHER SECONDARY THROMBOCYTOPENIA (7) Afib Assessment/Plan: on AC bc of coagulopathy and liver disease on nadolol stop metoprolol Code(s): I48.91 - UNSPECIFIED ATRIAL FIBRILLATION
[2019-06-19] MEDS ORDERED: INSULIN (LEVEMIR) 100 UNITS/ML UNITS SQ ONE ×2 (12:26→12:38)
--- NOTE | 2019-06-19 13:00 | PN ---
Progress Note, BLOGS MANAGER - Note Progress Note: Selected Entries 06/19/19 06/19/19 06/19/19 02:00 06:00 10:00 Breakfast 50% Temperature 97.9 F 98.3 F 98.1 F Laboratory Tests 06/19/19 06:15 WBC 7.1 MBS reviewed. Trial diet upgrade. Monitor tolerance.
[2019-06-19] MEDS: FUROSEMIDE 40 MG TABLET (FP) PO SCH (14:23)
--- NOTE | 2019-06-19 16:16 | PN ---
Progress Note (short form) - Note Progress Note: Renal follow up for SOPHIE/CKD Seen and examined at the bedside more groggy today making urine tolerating oral diet Vital Signs Temperature 97.5 F L 06/19/19 15:29 Pulse Rate 72 06/19/19 15:29 Respiratory Rate 20 06/19/19 15:29 Blood Pressure 116/61 06/19/19 15:29 O2 Sat by Pulse Oximetry (%) 100 06/19/19 09:00 Intake & Output 06/16/19 06/17/19 06/18/19 06/19/19 23:59 23:59 23:59 23:59 Intake Total 670 685 750 350 Balance 670 685 750 350 Weight 107.547 kg 107.104 kg 106.141 kg 103.873 kg NAD awake and alert neck supple RRR Dec BS + abd ascities + LE edema CBC, BMP 06/19/19 06:15 06/19/19 06:15 Current Medications Acetaminophen (Tylenol -) 650 mg PO Q6H PRN PRN Reason: PAIN LEVEL 1-5 Last Admin: 06/17/19 16:37 Dose: 650 mg Albuterol Sulfate (Ventolin 0.083% Nebulizer Soln -) 1 amp NEB Q6H PRN PRN Reason: SHORT OF BREATH/WHEEZING Last Admin: 06/16/19 20:16 Dose: 1 amp Artificial Tears (Artificial Tears) 1 drop OU Q12H PRN PRN Reason: DRY EYES Last Admin: 06/08/19 21:25 Dose: 1 drop Furosemide (Lasix -) 100 mg PO BID@0600,1400 [facility] Last Admin: 06/19/19 14:23 Dose: 100 mg Insulin Aspart (Novolog Vial Sliding Scale -) 1 vial SQ ACHS [facility]; Protocol Last Admin: 06/19/19 11:44 Dose: 2 units Lactic Acid (Lac-Hydrin 12) 1 applic TP BID [facility] Last Admin: 06/19/19 10:21 Dose: 1 applic Lactulose (Cephulac (Oral Use)) 20 gm PO Q6HPO [facility] Last Admin: 06/19/19 11:44 Dose: 20 gm Lactulose (Cephulac (Rectal Use)) 200 gm [place] TID PRN PRN Reason: AGITATION Melatonin (Melatonin) 5 mg PO HS PRN PRN Reason: INSOMNIA Last Admin: 06/18/19 23:17 Dose: 5 mg Nadolol (Corgard -) 40 mg PO DAILY [facility] Last Admin: 06/19/19 10:19 Dose: 40 mg Nitroglycerin (Nitrostat -) 0.4 mg SL Q5M PRN PRN Reason: FOR CHEST PAIN Last Admin: 06/09/19 02:05 Dose: 0.4 mg Potassium Chloride (K-Dur -) 40 meq PO DAILY [facility] Last Admin: 06/19/19 10:19 Dose: 40 meq Rifaximin (Xifaxan -) 550 mg PO BID [facility] Last Admin: 06/19/19 10:20 Dose: 550 mg Spironolactone (Aldactone -) 25 mg PO DAILY [facility] Last Admin: 06/19/19 10:19 Dose: 25 mg Tamsulosin HCl (Flomax -) 0.4 mg PO DAILY@0830 [facility] Last Admin: 06/19/19 10:18 Dose: 0.4 mg 74 year old gentleman with history of Alcoholic cirrhosis, hypertension, CHF presented with shortness of breath and increased abdominal girth and admitted for worsening ascities. 1. SOPHIE 2. Alcoholic cirrhosis with ascities 3. Anemia 4. Leukopenia/thrombocytopenia 5. CHF with volume overload 6. Hypertension 7. Hypokalemia Renal function stable change IV lasix to PO (decreased overall diuretic dose as pt has metabolic alkalosis) CXR shows improvement in congestion but not complete resolution Continue aldactone at present dose trend renal function and electrolytes Titrate lactulose to 2-3 BM's daily Trend LFT's and bilame Sanchez DO
[2019-06-20] MEDS: LACTULOSE 20 GM/30 ML UDC (FOR ORAL USE ONLY) PO SCH ×5 (00:45→17:38)
[2019-06-20] MEDS: FUROSEMIDE 40 MG TABLET (FP) PO SCH ×2 (06:21→15:34)
[2019-06-20] MEDS: INSULIN SLIDING SCALE (NOVOLOG) 1 VIAL SQ SCH ×4 (06:27→22:33)
[2019-06-20 07:22] LABS: BLOOD UREA NITROGEN 57.1 mg/dL (7-18); CALCIUM 9.2 mg/dL (8.5-10.1); CREATININE 1.9 mg/dL (0.55-1.3); MAGNESIUM 2.1 mg/dL (1.8-2.4); PHOSPHOROUS 2.7 mg/dL (2.5-4.9); POTASSIUM 3.9 mmol/L (3.5-5.1)
[2019-06-20] MEDS: POTASSIUM CHLORIDE TABS 20 MEQ TABLET.ER (FP) PO SCH (09:24)
[2019-06-20] MEDS: SPIRONOLACTONE 25 MG TABLET (FP) PO SCH (09:25)
[2019-06-20] MEDS: TAMSULOSIN HCL 0.4 MG CAP PO SCH (09:25)
[2019-06-20] MEDS: NADOLOL 40 MG TABLET (FP) PO SCH (09:25)
[2019-06-20] MEDS: RIFAXIMIN 550 MG TABLET (UD) PO SCH (09:26)
[2019-06-20] MEDS: AMMONIUM LACTATE 12% LOTION 225 GM BOTTLE TP SCH ×2 (09:27→22:33)
--- NOTE | 2019-06-20 11:42 | PN ---
Progress Note, Physician History of Present Illness: pulmonary more lethargic today,-resp distress - Current Medication List Current Medications: Active Medications Acetaminophen (Tylenol -) 650 mg PO Q6H PRN PRN Reason: PAIN LEVEL 1-5 Last Admin: 06/17/19 16:37 Dose: 650 mg Albuterol Sulfate (Ventolin 0.083% Nebulizer Soln -) 1 amp NEB Q6H PRN PRN Reason: SHORT OF BREATH/WHEEZING Last Admin: 06/16/19 20:16 Dose: 1 amp Artificial Tears (Artificial Tears) 1 drop OU Q12H PRN PRN Reason: DRY EYES Last Admin: 06/08/19 21:25 Dose: 1 drop Furosemide (Lasix -) 100 mg PO BID@0600,1400 [facility] Last Admin: 06/20/19 06:21 Dose: 100 mg Insulin Aspart (Novolog Vial Sliding Scale -) 1 vial SQ ACHS [facility]; Protocol Last Admin: 06/20/19 06:27 Dose: 2 units Lactic Acid (Lac-Hydrin 12) 1 applic TP BID [facility] Last Admin: 06/20/19 09:27 Dose: 1 applic Lactulose (Cephulac (Oral Use)) 20 gm PO Q6HPO [facility] Last Admin: 06/20/19 06:21 Dose: 20 gm Lactulose (Cephulac (Rectal Use)) 200 gm [place] TID PRN PRN Reason: AGITATION Melatonin (Melatonin) 5 mg PO HS PRN PRN Reason: INSOMNIA Last Admin: 06/18/19 23:17 Dose: 5 mg Nadolol (Corgard -) 40 mg PO DAILY [facility] Last Admin: 06/20/19 09:25 Dose: 40 mg Nitroglycerin (Nitrostat -) 0.4 mg SL Q5M PRN PRN Reason: FOR CHEST PAIN Last Admin: 06/09/19 02:05 Dose: 0.4 mg Potassium Chloride (K-Dur -) 40 meq PO DAILY [facility] Last Admin: 06/20/19 09:24 Dose: 40 meq Rifaximin (Xifaxan -) 550 mg PO BID [facility] Last Admin: 06/20/19 09:26 Dose: 550 mg Spironolactone (Aldactone -) 25 mg PO DAILY [facility] Last Admin: 06/20/19 09:25 Dose: 25 mg Tamsulosin HCl (Flomax -) 0.4 mg PO DAILY@0830 [facility] Last Admin: 06/20/19 09:25 Dose: 0.4 mg - Objective Vital Signs: Vital Signs Temperature 97.9 F 06/20/19 10:00 Pulse Rate 92 H 06/20/19 10:00 Respiratory Rate 21 H 06/20/19 10:00 Blood Pressure 135/68 06/20/19 10:00 O2 Sat by Pulse Oximetry (%) 100 06/20/19 09:00 Constitutional: Yes: Well Nourished, Other (lethargic) Eyes: Yes: WNL HENT: Yes: WNL Neck: Yes: WNL Cardiovascular: Yes: Regular Rate and Rhythm, S1, S2 Respiratory: Yes: Diminished Gastrointestinal: Yes: Normal Bowel Sounds, Soft Extremities: Yes: WNL Edema: Yes Labs: CBC, BMP 06/19/19 06:15 06/20/19 05:45 INR, PTT INR 1.30 (0.83-1.09) H 05/27/19 11:05 Laboratory Tests 06/19/19 14:47 Ammonia 119.80 H Problem List - Problems (1) SOPHIE (acute kidney injury) Code(s): N17.9 - ACUTE KIDNEY FAILURE, UNSPECIFIED (2) CHF (congestive heart failure) Code(s): I50.9 - HEART FAILURE, UNSPECIFIED Qualifiers: Heart failure type: unspecified Heart failure chronicity: acute on chronic Qualified Code(s): I50.9 - Heart failure, unspecified (3) Pancytopenia Code(s): D61.818 - OTHER PANCYTOPENIA (4) Acute renal failure (ARF) Code(s): N17.9 - ACUTE KIDNEY FAILURE, UNSPECIFIED (5) Altered mental status Code(s): R41.82 - ALTERED MENTAL STATUS, UNSPECIFIED Qualifiers: Altered mental status type: disorientation Qualified Code(s): R41.0 - Disorientation, unspecified (6) Anemia Code(s): D64.9 - ANEMIA, UNSPECIFIED (7) COPD (chronic obstructive pulmonary disease) Code(s): J44.9 - CHRONIC OBSTRUCTIVE PULMONARY DISEASE, UNSPECIFIED (8) Chronic systolic congestive heart failure Code(s): I50.22 - CHRONIC SYSTOLIC (CONGESTIVE) HEART FAILURE (9) Cirrhosis of liver Code(s): K74.60 - UNSPECIFIED CIRRHOSIS OF LIVER (10) Esophageal varices Code(s): I85.00 - ESOPHAGEAL VARICES WITHOUT BLEEDING (11) Hepatic encephalopathy Code(s): K72.90 - HEPATIC FAILURE, UNSPECIFIED WITHOUT COMA (12) Hypoxia Code(s): R09.02 - HYPOXEMIA (13) Acute on chronic respiratory failure with hypoxia and hypercapnia Code(s): J96.21 - ACUTE AND CHRONIC RESPIRATORY FAILURE WITH HYPOXIA; J96.22 - ACUTE AND CHRONIC RESPIRATORY FAILURE WITH HYPERCAPNIA Assessment/Plan IMP DYSPNEA improved CHF IMPROVING ACUTE ON CHRONIC HYPOXEMIC/HYPERCAPNEIC RESPIRATORY FAILURE IMPROVED VOLUME OVERLOAD IMPROVING ASCITES COPD O2 DEPENDENT PLEURAL EFFUSION HEPATIC ENCEPHALOPATHY WORSENING DM CIRRHOSIS WITH ESOPHAGEAL VARICES S/P BANDING THROMBOCYTOPENIA SOPHIE H/O ETOH PLAN DIURETICS RIFAXIMIN O2 DAILY WTS MONITOR LYTES,RENAL FUNCTION MONITOR H+H LACTULOSE AMMONIA LEVEL TODAY GI F/U DR COLLAZO Problem List - Problems (1) SOPHIE (acute kidney injury) Code(s): N17.9 - ACUTE KIDNEY FAILURE, UNSPECIFIED (2) CHF (congestive heart failure) Code(s): I50.9 - HEART FAILURE, UNSPECIFIED Qualifiers: Heart failure type: unspecified Heart failure chronicity: acute on chronic Qualified Code(s): I50.9 - Heart failure, unspecified (3) Pancytopenia Code(s): D61.818 - OTHER PANCYTOPENIA (4) Acute renal failure (ARF) Code(s): N17.9 - ACUTE KIDNEY FAILURE, UNSPECIFIED (5) Altered mental status Code(s): R41.82 - ALTERED MENTAL STATUS, UNSPECIFIED Qualifiers: Altered mental status type: disorientation Qualified Code(s): R41.0 - Disorientation, unspecified (6) Anemia Code(s): D64.9 - ANEMIA, UNSPECIFIED (7) COPD (chronic obstructive pulmonary disease) Code(s): J44.9 - CHRONIC OBSTRUCTIVE PULMONARY DISEASE, UNSPECIFIED (8) Chronic systolic congestive heart failure Code(s): I50.22 - CHRONIC SYSTOLIC (CONGESTIVE) HEART FAILURE (9) Cirrhosis of liver Code(s): K74.60 - UNSPECIFIED CIRRHOSIS OF LIVER (10) Esophageal varices Code(s): I85.00 - ESOPHAGEAL VARICES WITHOUT BLEEDING (11) Hepatic encephalopathy Code(s): K72.90 - HEPATIC FAILURE, UNSPECIFIED WITHOUT COMA (12) Hypoxia Code(s): R09.02 - HYPOXEMIA (13) Acute on chronic respiratory failure with hypoxia and hypercapnia Code(s): J96.21 - ACUTE AND CHRONIC RESPIRATORY FAILURE WITH HYPOXIA; J96.22 - ACUTE AND CHRONIC RESPIRATORY FAILURE WITH HYPERCAPNIA
[2019-06-20 12:24] LABS: BILIRUBIN,DIRECT 1.6 mg/dL (0.0-0.2); BILIRUBIN,TOTAL 8.7 mg/dL (0.2-1)
[2019-06-20] MEDS ORDERED: INSULIN (LEVEMIR) 100 UNITS/ML UNITS SQ ONE (15:06)
--- NOTE | 2019-06-20 15:07 | PN ---
Progress Note (short form) - Note Progress Note: Renal follow up for SOPHIE/CKD Seen and examined at the bedside more groggy today making urine tolerating oral diet Vital Signs Temperature 97.5 F L 06/19/19 15:29 Pulse Rate 72 06/19/19 15:29 Respiratory Rate 20 06/19/19 15:29 Blood Pressure 116/61 06/19/19 15:29 O2 Sat by Pulse Oximetry (%) 100 06/19/19 09:00 Intake & Output 06/16/19 06/17/19 06/18/19 06/19/19 23:59 23:59 23:59 23:59 Intake Total 670 685 750 350 Balance 670 685 750 350 Weight 107.547 kg 107.104 kg 106.141 kg 103.873 kg NAD awake and alert neck supple RRR Dec BS + abd ascities + LE edema CBC, BMP 06/19/19 06:15 06/19/19 06:15 Current Medications Acetaminophen (Tylenol -) 650 mg PO Q6H PRN PRN Reason: PAIN LEVEL 1-5 Last Admin: 06/17/19 16:37 Dose: 650 mg Albuterol Sulfate (Ventolin 0.083% Nebulizer Soln -) 1 amp NEB Q6H PRN PRN Reason: SHORT OF BREATH/WHEEZING Last Admin: 06/16/19 20:16 Dose: 1 amp Artificial Tears (Artificial Tears) 1 drop OU Q12H PRN PRN Reason: DRY EYES Last Admin: 06/08/19 21:25 Dose: 1 drop Furosemide (Lasix -) 100 mg PO BID@0600,1400 [facility] Last Admin: 06/19/19 14:23 Dose: 100 mg Insulin Aspart (Novolog Vial Sliding Scale -) 1 vial SQ ACHS [facility]; Protocol Last Admin: 06/19/19 11:44 Dose: 2 units Lactic Acid (Lac-Hydrin 12) 1 applic TP BID [facility] Last Admin: 06/19/19 10:21 Dose: 1 applic Lactulose (Cephulac (Oral Use)) 20 gm PO Q6HPO [facility] Last Admin: 06/19/19 11:44 Dose: 20 gm Lactulose (Cephulac (Rectal Use)) 200 gm [place] TID PRN PRN Reason: AGITATION Melatonin (Melatonin) 5 mg PO HS PRN PRN Reason: INSOMNIA Last Admin: 06/18/19 23:17 Dose: 5 mg Nadolol (Corgard -) 40 mg PO DAILY [facility] Last Admin: 06/19/19 10:19 Dose: 40 mg Nitroglycerin (Nitrostat -) 0.4 mg SL Q5M PRN PRN Reason: FOR CHEST PAIN Last Admin: 06/09/19 02:05 Dose: 0.4 mg Potassium Chloride (K-Dur -) 40 meq PO DAILY [facility] Last Admin: 06/19/19 10:19 Dose: 40 meq Rifaximin (Xifaxan -) 550 mg PO BID [facility] Last Admin: 06/19/19 10:20 Dose: 550 mg Spironolactone (Aldactone -) 25 mg PO DAILY [facility] Last Admin: 06/19/19 10:19 Dose: 25 mg Tamsulosin HCl (Flomax -) 0.4 mg PO DAILY@0830 [facility] Last Admin: 06/19/19 10:18 Dose: 0.4 mg 74 year old gentleman with history of Alcoholic cirrhosis, hypertension, CHF presented with shortness of breath and increased abdominal girth and admitted for worsening ascities. 1. SOPHIE in setting of hepatic dysfunction 2. Alcoholic cirrhosis with ascities 3. Anemia 4. Leukopenia/thrombocytopenia 5. CHF with volume overload 6. Hypertension 7. Hypokalemia Renal function stable Continue PO lasix CXR shows improvement in congestion but not complete resolution Continue aldactone at present dose trend renal function and electrolytes Titrate lactulose to 2-3 BM's daily Trend LFT's and bilirbin overall prognosis is guarded Ang Sanchez DO
--- NOTE | 2019-06-20 15:09 | PN ---
Progress Note, Physician Chief Complaint: patient seen and examined awke ate food today recognizes family at bed side - Current Medication List Current Medications: Active Medications Acetaminophen (Tylenol -) 650 mg PO Q6H PRN PRN Reason: PAIN LEVEL 1-5 Last Admin: 06/17/19 16:37 Dose: 650 mg Albuterol Sulfate (Ventolin 0.083% Nebulizer Soln -) 1 amp NEB Q6H PRN PRN Reason: SHORT OF BREATH/WHEEZING Last Admin: 06/16/19 20:16 Dose: 1 amp Artificial Tears (Artificial Tears) 1 drop OU Q12H PRN PRN Reason: DRY EYES Last Admin: 06/08/19 21:25 Dose: 1 drop Furosemide (Lasix -) 100 mg PO BID@0600,1400 [facility] Last Admin: 06/20/19 06:21 Dose: 100 mg Insulin Aspart (Novolog Vial Sliding Scale -) 1 vial SQ ACHS [facility]; Protocol Last Admin: 06/20/19 12:51 Dose: 2 units Lactic Acid (Lac-Hydrin 12) 1 applic TP BID [facility] Last Admin: 06/20/19 09:27 Dose: 1 applic Lactulose (Cephulac (Oral Use)) 20 gm PO Q6HPO [facility] Last Admin: 06/20/19 12:36 Dose: Not Given Lactulose (Cephulac (Rectal Use)) 200 gm [place] TID PRN PRN Reason: AGITATION Melatonin (Melatonin) 5 mg PO HS PRN PRN Reason: INSOMNIA Last Admin: 06/18/19 23:17 Dose: 5 mg Nadolol (Corgard -) 40 mg PO DAILY [facility] Last Admin: 06/20/19 09:25 Dose: 40 mg Nitroglycerin (Nitrostat -) 0.4 mg SL Q5M PRN PRN Reason: FOR CHEST PAIN Last Admin: 06/09/19 02:05 Dose: 0.4 mg Potassium Chloride (K-Dur -) 40 meq PO DAILY [facility] Last Admin: 06/20/19 09:24 Dose: 40 meq Rifaximin (Xifaxan -) 550 mg PO BID [facility] Last Admin: 06/20/19 09:26 Dose: 550 mg Spironolactone (Aldactone -) 25 mg PO DAILY [facility] Last Admin: 06/20/19 09:25 Dose: 25 mg Tamsulosin HCl (Flomax -) 0.4 mg PO DAILY@0830 [facility] Last Admin: 06/20/19 09:25 Dose: 0.4 mg - Objective Vital Signs: Vital Signs Temperature 97.9 F 06/20/19 10:00 Pulse Rate 92 H 06/20/19 10:00 Respiratory Rate 21 H 06/20/19 10:00 Blood Pressure 135/68 06/20/19 10:00 O2 Sat by Pulse Oximetry (%) 100 06/20/19 09:00 Constitutional: Yes: Calm Eyes: Yes: Sclera Icterus Cardiovascular: Yes: Regular Rate and Rhythm, S1, S2 Respiratory: Yes: CTA Bilaterally Gastrointestinal: Yes: Soft, Ascites Edema: Yes Labs: CBC, BMP 06/19/19 06:15 06/20/19 05:45 INR, PTT INR 1.30 (0.83-1.09) H 05/27/19 11:05 Problem List - Problems (1) Change in mental status Assessment/Plan: opnlactulose and rifaxmin hepatic encephalopathy ammonia still elevated total bilirubin continue to trend upward Code(s): R41.82 - ALTERED MENTAL STATUS, UNSPECIFIED (2) Cirrhosis of liver Assessment/Plan: aldactone ,nadolol,rifaximin, ultrasound shows liver mass in left lobe lactulose dose increase ammonia level uptrending Code(s): K74.60 - UNSPECIFIED CIRRHOSIS OF LIVER (3) CHF (congestive heart failure) Assessment/Plan: iv lasix dose increase to 60mg bid to 100mg bid now changed to po lasix 100mg po bid albumin completed echo left ventricle systolic function is severly reduced chest ct show right side pleural effusion more than left side pleural effusion Code(s): I50.9 - HEART FAILURE, UNSPECIFIED Qualifiers: Heart failure type: unspecified Heart failure chronicity: acute on chronic Qualified Code(s): I50.9 - Heart failure, unspecified (4) Ascites Assessment/Plan: continue with lasix and now on aldactone Code(s): R18.8 - OTHER ASCITES (5) Type II diabetes mellitus, uncontrolled Assessment/Plan: patient is eating dysphagia diet bgm noted elevated restart levemir and uptitrate bgm and sliding scale Code(s): E11.65 - TYPE 2 DIABETES MELLITUS WITH HYPERGLYCEMIA (6) Acquired thrombocytopenia Assessment/Plan: secondary to cirrhosis/hyperslenism platelet count is now stable continue to monitor Code(s): D69.59 - OTHER SECONDARY THROMBOCYTOPENIA (7) Afib Assessment/Plan: on AC bc of coagulopathy and liver disease on nadolol stop metoprolol Code(s): I48.91 - UNSPECIFIED ATRIAL FIBRILLATION Assessment/Plan spoke to family regarding GOC and dc planning paperwork sent to [facility] patient still full code
[2019-06-21] MEDS: LACTULOSE 20 GM/30 ML UDC (FOR ORAL USE ONLY) PO SCH ×4 (00:52→17:57)
[2019-06-21] MEDS: FUROSEMIDE 40 MG TABLET (FP) PO SCH ×2 (06:21→14:31)
[2019-06-21] MEDS: INSULIN SLIDING SCALE (NOVOLOG) 1 VIAL SQ SCH ×4 (06:21→22:01)
[2019-06-21 07:45] LABS: BLOOD UREA NITROGEN 60.7 mg/dL (7-18); CALCIUM 9.3 mg/dL (8.5-10.1); CREATININE 1.8 mg/dL (0.55-1.3); MAGNESIUM 2.3 mg/dL (1.8-2.4); PHOSPHOROUS 2.9 mg/dL (2.5-4.9); POTASSIUM 3.9 mmol/L (3.5-5.1)
[2019-06-21] MEDS ORDERED: PT OWN MED DRAWER 7, Y5N ONE (09:24)
[2019-06-21] MEDS: SPIRONOLACTONE 25 MG TABLET (FP) PO SCH (09:26)
[2019-06-21] MEDS: TAMSULOSIN HCL 0.4 MG CAP PO SCH (09:26)
[2019-06-21] MEDS: NADOLOL 40 MG TABLET (FP) PO SCH (09:26)
[2019-06-21] MEDS: POTASSIUM CHLORIDE TABS 20 MEQ TABLET.ER (FP) PO SCH (09:27)
[2019-06-21] MEDS: AMMONIUM LACTATE 12% LOTION 225 GM BOTTLE TP SCH ×2 (09:27→22:01)
--- NOTE | 2019-06-21 10:59 | PN ---
Progress Note, Physician Chief Complaint: SOPHIE CHF Hepatic Encephalopathy History of Present Illness: Previous notes and events reviewed awake and alert NAD sts having SOB denies having chest pain - Current Medication List Current Medications: Active Medications Acetaminophen (Tylenol -) 650 mg PO Q6H PRN PRN Reason: PAIN LEVEL 1-5 Last Admin: 06/17/19 16:37 Dose: 650 mg Artificial Tears (Artificial Tears) 1 drop OU Q12H PRN PRN Reason: DRY EYES Last Admin: 06/08/19 21:25 Dose: 1 drop Furosemide (Lasix -) 100 mg PO BID@0600,1400 [facility] Last Admin: 06/21/19 06:21 Dose: 100 mg Insulin Aspart (Novolog Vial Sliding Scale -) 1 vial SQ ACHS [facility]; Protocol Last Admin: 06/21/19 06:21 Dose: Not Given Lactic Acid (Lac-Hydrin 12) 1 applic TP BID [facility] Last Admin: 06/21/19 09:27 Dose: 1 applic Lactulose (Cephulac (Oral Use)) 20 gm PO Q6HPO [facility] Last Admin: 06/21/19 06:21 Dose: 20 gm Lactulose (Cephulac (Rectal Use)) 200 gm [place] TID PRN PRN Reason: AGITATION Melatonin (Melatonin) 5 mg PO HS PRN PRN Reason: INSOMNIA Last Admin: 06/18/19 23:17 Dose: 5 mg Nadolol (Corgard -) 40 mg PO DAILY [facility] Last Admin: 06/21/19 09:26 Dose: 40 mg Nitroglycerin (Nitrostat -) 0.4 mg SL Q5M PRN PRN Reason: FOR CHEST PAIN Last Admin: 06/09/19 02:05 Dose: 0.4 mg Potassium Chloride (K-Dur -) 40 meq PO DAILY [facility] Last Admin: 06/21/19 09:27 Dose: 40 meq Spironolactone (Aldactone -) 25 mg PO DAILY [facility] Last Admin: 06/21/19 09:26 Dose: 25 mg Tamsulosin HCl (Flomax -) 0.4 mg PO DAILY@0830 [facility] Last Admin: 06/21/19 09:26 Dose: 0.4 mg - Objective Vital Signs: Vital Signs Temperature 98.1 F 06/21/19 06:00 Pulse Rate 91 H 06/21/19 06:00 Respiratory Rate 20 06/21/19 06:00 Blood Pressure 117/52 L 06/21/19 06:00 O2 Sat by Pulse Oximetry (%) 98 06/20/19 21:00 Constitutional: Yes: No Distress, Calm Eyes: Yes: Conjunctiva Clear HENT: Yes: Atraumatic Cardiovascular: Yes: Regular Rate and Rhythm Respiratory: Yes: Regular, Cough, Diminished, On Nasal O2 Gastrointestinal: Yes: Normal Bowel Sounds, Soft Genitourinary: Yes: Incontinence Musculoskeletal: Yes: Muscle Weakness Extremities: Yes: WNL Edema: Yes Neurological: Yes: Alert, Pre-Existing Deficit Psychiatric: Yes: Alert Labs: CBC, BMP 06/19/19 06:15 06/21/19 06:45 INR, PTT INR 1.30 (0.83-1.09) H 05/27/19 11:05 Microbiology 05/27/19 15:40 Urine - Urine Clean Catch Urine Culture - Final NO GROWTH OBTAINED Problem List - Problems (1) SOPHIE (acute kidney injury) Assessment/Plan: -BUN/Cr 60.7/1.8 -monitor renal function -Renal on board Code(s): N17.9 - ACUTE KIDNEY FAILURE, UNSPECIFIED (2) CHF (congestive heart failure) Assessment/Plan: -Cardiology consult -Tele monitoring -Furosemide 100mg BID -BNP 4235.7 -strict I&Os -daily weights -fluid restriction -CXR shows moderate bilateral pleural effusion with compressive atelectasis -EF 35-40% Code(s): I50.9 - HEART FAILURE, UNSPECIFIED Qualifiers: Heart failure type: unspecified Heart failure chronicity: acute on chronic Qualified Code(s): I50.9 - Heart failure, unspecified (3) Troponin level elevated Assessment/Plan: -Cardiology on board -tele monitoring -0.06, 0.04, 0.04 Code(s): R79.89 - OTHER SPECIFIED ABNORMAL FINDINGS OF BLOOD CHEMISTRY (4) COPD (chronic obstructive pulmonary disease) Assessment/Plan: -Pulm on board -CXR shows moderate bilateral pleural effusion with compressive atelectasis -O2 via NC -keep SpO2 >90% Code(s): J44.9 - CHRONIC OBSTRUCTIVE PULMONARY DISEASE, UNSPECIFIED (5) Hepatic encephalopathy Assessment/Plan: -Xifaxin -GI on board -Lactulose -Spirinolactone -completed Albumin 25% x 4 doses -US shows atrophic cirrhotic liver containing 3.5 x 2.6 x 2.9cm lobulated left hepatic lobe hypoechoic mass spaces for neoplasm such as HCC -AFP neg -Hematology on board Code(s): K72.90 - HEPATIC FAILURE, UNSPECIFIED WITHOUT COMA (6) Type II diabetes mellitus, uncontrolled Assessment/Plan: -BGM ACHS -ISS -HgA1c 5.5% Code(s): E11.65 - TYPE 2 DIABETES MELLITUS WITH HYPERGLYCEMIA (7) Pancytopenia Assessment/Plan: -Hematology on board -PLT 94, WBC 7.1, RBC 3.34 Code(s): D61.818 - OTHER PANCYTOPENIA (8) Afib Assessment/Plan: -Cardiology on board -tele monitoring -unable to start AC due to liver disease -Nadolol Code(s): I48.91 - UNSPECIFIED ATRIAL FIBRILLATION Assessment/Plan see problem list application sent for Tonio Full Code
--- NOTE | 2019-06-21 12:53 | PN ---
Progress Note (short form) - Note Progress Note: PULMONARY Lethargic, jaundiced. Not answering questions. Vital Signs Period Temp Pulse Resp BP Sys/Block Pulse Ox Last 24 Hr 97.4 F-98.5 F 88-103 18-20 112-129/48-68 98-98 Gen: NAD at rest Heart: RRR Lung: decreased breath sounds at the bases Abd: softly distended, nontender Ext: + edema CBC, BMP 06/19/19 06:15 06/21/19 06:45 Hepatic Panel Total Bilirubin 8.7 mg/dL (0.2-1) H 06/20/19 05:45 Direct Bilirubin 1.6 mg/dL (0.0-0.2) H 06/20/19 05:45 AST 31 U/L (15-37) 06/19/19 06:15 ALT 25 U/L (13-61) 06/19/19 06:15 Alkaline Phosphatase 177 U/L (45-117) H 06/19/19 06:15 Albumin 3.0 g/dl (3.4-5.0) L 06/19/19 06:15 Active Medications Acetaminophen (Tylenol -) 650 mg PO Q6H PRN PRN Reason: PAIN LEVEL 1-5 Last Admin: 06/17/19 16:37 Dose: 650 mg Artificial Tears (Artificial Tears) 1 drop OU Q12H PRN PRN Reason: DRY EYES Last Admin: 06/08/19 21:25 Dose: 1 drop Furosemide (Lasix -) 100 mg PO BID@0600,1400 [facility] Last Admin: 06/21/19 06:21 Dose: 100 mg Insulin Aspart (Novolog Vial Sliding Scale -) 1 vial SQ ACHS [facility]; Protocol Last Admin: 06/21/19 12:37 Dose: 2 units Lactic Acid (Lac-Hydrin 12) 1 applic TP BID [facility] Last Admin: 06/21/19 09:27 Dose: 1 applic Lactulose (Cephulac (Oral Use)) 20 gm PO Q6HPO [facility] Last Admin: 06/21/19 12:38 Dose: 20 gm Lactulose (Cephulac (Rectal Use)) 200 gm [place] TID PRN PRN Reason: AGITATION Melatonin (Melatonin) 5 mg PO HS PRN PRN Reason: INSOMNIA Last Admin: 06/18/19 23:17 Dose: 5 mg Nadolol (Corgard -) 40 mg PO DAILY [facility] Last Admin: 06/21/19 09:26 Dose: 40 mg Nitroglycerin (Nitrostat -) 0.4 mg SL Q5M PRN PRN Reason: FOR CHEST PAIN Last Admin: 06/09/19 02:05 Dose: 0.4 mg Potassium Chloride (K-Dur -) 40 meq PO DAILY [facility] Last Admin: 06/21/19 09:27 Dose: 40 meq Spironolactone (Aldactone -) 25 mg PO DAILY [facility] Last Admin: 06/21/19 09:26 Dose: 25 mg Tamsulosin HCl (Flomax -) 0.4 mg PO DAILY@0830 [facility] Last Admin: 06/21/19 09:26 Dose: 0.4 mg A/P Acute on Chronic Systolic Heart Failure Volume Overload Pleural Effusion Atrial Fibrillation Acute Kidney Injury Chronic Hypoxic Respiratory Failure COPD Liver Cirrhosis Ascites Pancytopenia DM - continue lasix, aldactone - monitor urine output, creatinine - daily weights - trend LFTs - O2 to keep SpO2 >90% - inhaled bronchodilators - rate control - DVT prophylaxis - poor overall prognosis
--- NOTE | 2019-06-21 16:03 | PN ---
Progress Note (short form) - Note Progress Note: covering dr alexy hu 1. SOPHIE in setting of hepatic dysfunction 2. Alcoholic cirrhosis with ascities 3. Anemia 4. Leukopenia/thrombocytopenia 5. CHF with volume overload 6. Hypertension 7. Hypokalemia Active Medications Acetaminophen (Tylenol -) 650 mg PO Q6H PRN PRN Reason: PAIN LEVEL 1-5 Last Admin: 06/17/19 16:37 Dose: 650 mg Artificial Tears (Artificial Tears) 1 drop OU Q12H PRN PRN Reason: DRY EYES Last Admin: 06/08/19 21:25 Dose: 1 drop Furosemide (Lasix -) 100 mg PO BID@0600,1400 [facility] Last Admin: 06/21/19 14:31 Dose: 100 mg Insulin Aspart (Novolog Vial Sliding Scale -) 1 vial SQ ACHS [facility]; Protocol Last Admin: 06/21/19 12:37 Dose: 2 units Lactic Acid (Lac-Hydrin 12) 1 applic TP BID [facility] Last Admin: 06/21/19 09:27 Dose: 1 applic Lactulose (Cephulac (Oral Use)) 20 gm PO Q6HPO [facility] Last Admin: 06/21/19 12:38 Dose: 20 gm Lactulose (Cephulac (Rectal Use)) 200 gm [place] TID PRN PRN Reason: AGITATION Melatonin (Melatonin) 5 mg PO HS PRN PRN Reason: INSOMNIA Last Admin: 06/18/19 23:17 Dose: 5 mg Nadolol (Corgard -) 40 mg PO DAILY [facility] Last Admin: 06/21/19 09:26 Dose: 40 mg Nitroglycerin (Nitrostat -) 0.4 mg SL Q5M PRN PRN Reason: FOR CHEST PAIN Last Admin: 06/09/19 02:05 Dose: 0.4 mg Potassium Chloride (K-Dur -) 40 meq PO DAILY [facility] Last Admin: 06/21/19 09:27 Dose: 40 meq Spironolactone (Aldactone -) 25 mg PO DAILY [facility] Last Admin: 06/21/19 09:26 Dose: 25 mg Tamsulosin HCl (Flomax -) 0.4 mg PO DAILY@0830 [facility] Last Admin: 06/21/19 09:26 Dose: 0.4 mg Last Vital Signs Temp Pulse Resp BP Pulse Ox 97.6 F 61 16 132/56 L 98 06/21/19 13:15 06/21/19 13:15 06/21/19 13:15 06/21/19 13:15 06/21/19 09:00 CBC, BMP 06/19/19 06:15 06/21/19 06:45 IMP- SOPHIE Liver cirrhosis gen edema on lasix bid Renal function stable Continue PO lasix CXR shows improvement in congestion but not complete resolution Continue aldactone at present dose trend renal function and electrolytes Titrate lactulose to 2-3 BM's daily Trend LFT's and bilirbin overall prognosis is guarded covering
[2019-06-22] MEDS: LACTULOSE 20 GM/30 ML UDC (FOR ORAL USE ONLY) PO SCH ×5 (00:59→23:01)
[2019-06-22] MEDS: FUROSEMIDE 40 MG TABLET (FP) PO SCH ×2 (06:52→14:17)
[2019-06-22] MEDS: INSULIN SLIDING SCALE (NOVOLOG) 1 VIAL SQ SCH ×4 (06:52→22:17)
[2019-06-22 07:50] LABS: HEMATOCRIT 31.2 % (35.4-49); HEMOGLOBIN 10.5 GM/dL (11.7-16.9); MCH 33.8 pg (25.7-33.7); MCHC 33.7 g/dl (32.0-35.9); MEAN CELL VOLUME 100.1 fl (80-96); MEAN PLT VOLUME 8.6 fl (7.5-11.1); PLATELET COUNT 70 K/MM3 (134-434); RBC 3.11 M/mm3 (4.00-5.60); RDW 16.6 % (11.9-15.9); WHITE BLOOD COUNT 5.9 K/mm3 (4.0-10.0)
[2019-06-22 08:15] LABS: ALBUMIN 2.9 g/dl (3.4-5.0); BILIRUBIN,TOTAL 7.1 mg/dL (0.2-1); BLOOD UREA NITROGEN 56.9 mg/dL (7-18); CALCIUM 8.9 mg/dL (8.5-10.1); POTASSIUM 3.9 mmol/L (3.5-5.1)
[2019-06-22] MEDS: TAMSULOSIN HCL 0.4 MG CAP PO SCH (09:24)
[2019-06-22] MEDS: POTASSIUM CHLORIDE TABS 20 MEQ TABLET.ER (FP) PO SCH (09:24)
[2019-06-22] MEDS: SPIRONOLACTONE 25 MG TABLET (FP) PO SCH (09:24)
[2019-06-22] MEDS: AMMONIUM LACTATE 12% LOTION 225 GM BOTTLE TP SCH ×2 (09:25→22:14)
[2019-06-22] MEDS: NADOLOL 40 MG TABLET (FP) PO SCH (10:37)
--- NOTE | 2019-06-22 10:45 | PN ---
Progress Note, Physician Chief Complaint: SOPHIE CHF Hepatic Encephalopathy History of Present Illness: Previous notes and events reviewed awake and alert NAD patient sts feeling good this morning denies SOB or chest pain mild jaundice noted patient is pending acceptance to [facility] for Acute care - Current Medication List Current Medications: Active Medications Acetaminophen (Tylenol -) 650 mg PO Q6H PRN PRN Reason: PAIN LEVEL 1-5 Last Admin: 06/17/19 16:37 Dose: 650 mg Artificial Tears (Artificial Tears) 1 drop OU Q12H PRN PRN Reason: DRY EYES Last Admin: 06/08/19 21:25 Dose: 1 drop Furosemide (Lasix -) 100 mg PO BID@0600,1400 [facility] Last Admin: 06/22/19 06:52 Dose: 100 mg Insulin Aspart (Novolog Vial Sliding Scale -) 1 vial SQ ACHS [facility]; Protocol Last Admin: 06/22/19 06:52 Dose: 2 units Lactic Acid (Lac-Hydrin 12) 1 applic TP BID [facility] Last Admin: 06/22/19 09:25 Dose: 1 applic Lactulose (Cephulac (Oral Use)) 20 gm PO Q6HPO [facility] Last Admin: 06/22/19 06:52 Dose: 20 gm Lactulose (Cephulac (Rectal Use)) 200 gm [place] TID PRN PRN Reason: AGITATION Melatonin (Melatonin) 5 mg PO HS PRN PRN Reason: INSOMNIA Last Admin: 06/18/19 23:17 Dose: 5 mg Nadolol (Corgard -) 40 mg PO DAILY [facility] Last Admin: 06/22/19 10:37 Dose: 40 mg Nitroglycerin (Nitrostat -) 0.4 mg SL Q5M PRN PRN Reason: FOR CHEST PAIN Last Admin: 06/09/19 02:05 Dose: 0.4 mg Potassium Chloride (K-Dur -) 40 meq PO DAILY [facility] Last Admin: 06/22/19 09:24 Dose: 40 meq Rifaximin (Xifaxan -) 550 mg PO BID [facility] Spironolactone (Aldactone -) 25 mg PO DAILY [facility] Last Admin: 06/22/19 09:24 Dose: 25 mg Tamsulosin HCl (Flomax -) 0.4 mg PO DAILY@0830 [facility] Last Admin: 06/22/19 09:24 Dose: 0.4 mg - Objective Vital Signs: Vital Signs Temperature 98.0 F 06/22/19 09:31 Pulse Rate 65 06/22/19 09:31 Respiratory Rate 18 06/22/19 09:31 Blood Pressure 135/51 L 06/22/19 09:31 O2 Sat by Pulse Oximetry (%) 97 06/22/19 09:00 Constitutional: Yes: No Distress, Calm, Other Eyes: Yes: Conjunctiva Clear HENT: Yes: Atraumatic Cardiovascular: Yes: Pulse Irregular Respiratory: Yes: Regular, Cough, Diminished, On Nasal O2 Gastrointestinal: Yes: Normal Bowel Sounds, Soft Genitourinary: Yes: Incontinence Musculoskeletal: Yes: Muscle Weakness Extremities: Yes: WNL Edema: Yes Edema: LLE: 1+, RLE: 1+ Neurological: Yes: Alert, Confusion Psychiatric: Yes: Alert Labs: CBC, BMP 06/22/19 06:00 06/22/19 06:00 INR, PTT INR 1.30 (0.83-1.09) H 05/27/19 11:05 Microbiology 05/27/19 15:40 Urine - Urine Clean Catch Urine Culture - Final NO GROWTH OBTAINED Problem List - Problems (1) SOPHIE (acute kidney injury) Assessment/Plan: -BUN/Cr 56.9/2.0 -monitor renal function -Renal on board Code(s): N17.9 - ACUTE KIDNEY FAILURE, UNSPECIFIED (2) CHF (congestive heart failure) Assessment/Plan: -Cardiology consult -Tele monitoring -Furosemide 100mg BID -BNP 4235.7 -strict I&Os -daily weights -fluid restriction -CXR shows moderate bilateral pleural effusion with compressive atelectasis -EF 35-40% Code(s): I50.9 - HEART FAILURE, UNSPECIFIED Qualifiers: Heart failure type: unspecified Heart failure chronicity: acute on chronic Qualified Code(s): I50.9 - Heart failure, unspecified (3) Troponin level elevated Assessment/Plan: -Cardiology on board -tele monitoring -0.06, 0.04, 0.04 Code(s): R79.89 - OTHER SPECIFIED ABNORMAL FINDINGS OF BLOOD CHEMISTRY (4) COPD (chronic obstructive pulmonary disease) Assessment/Plan: -Pulm on board -CXR shows moderate bilateral pleural effusion with compressive atelectasis -O2 via NC -keep SpO2 >90% Code(s): J44.9 - CHRONIC OBSTRUCTIVE PULMONARY DISEASE, UNSPECIFIED (5) Hepatic encephalopathy Assessment/Plan: -Xifaxin -GI on board -Lactulose -Spirinolactone -US shows atrophic cirrhotic liver containing 3.5 x 2.6 x 2.9cm lobulated left hepatic lobe hypoechoic mass spaces for neoplasm such as HCC -AFP neg -Hematology on board Code(s): K72.90 - HEPATIC FAILURE, UNSPECIFIED WITHOUT COMA (6) Type II diabetes mellitus, uncontrolled Assessment/Plan: -BGM ACHS -ISS -HgA1c 5.5% Code(s): E11.65 - TYPE 2 DIABETES MELLITUS WITH HYPERGLYCEMIA (7) Pancytopenia Assessment/Plan: -Hematology on board -PLT 70, WBC 5.9, RBC 3.11 Code(s): D61.818 - OTHER PANCYTOPENIA (8) Afib Assessment/Plan: -Cardiology on board -tele monitoring -unable to start AC due to liver disease -Nadolol Code(s): I48.91 - UNSPECIFIED ATRIAL FIBRILLATION Assessment/Plan see problem list application sent for [facility], pending acceptance Full Code
--- NOTE | 2019-06-22 13:13 | PN ---
Progress Note (short form) - Note Progress Note: PULMONARY Lethargic, jaundiced. Vital Signs Period Temp Pulse Resp BP Sys/Block Pulse Ox Last 24 Hr 97.6 F-98.0 F 61-68 16-18 122-138/51-61 97-97 Gen: NAD at rest Heart: RRR Lung: decreased breath sounds at the bases Abd: softly distended, nontender Ext: + edema CBC, BMP 06/22/19 06:00 06/22/19 06:00 Active Medications Acetaminophen (Tylenol -) 650 mg PO Q6H PRN PRN Reason: PAIN LEVEL 1-5 Last Admin: 06/17/19 16:37 Dose: 650 mg Artificial Tears (Artificial Tears) 1 drop OU Q12H PRN PRN Reason: DRY EYES Last Admin: 06/08/19 21:25 Dose: 1 drop Furosemide (Lasix -) 100 mg PO BID@0600,1400 [facility] Last Admin: 06/22/19 06:52 Dose: 100 mg Insulin Aspart (Novolog Vial Sliding Scale -) 1 vial SQ [facility]; Protocol Last Admin: 06/22/19 11:53 Dose: 2 units Lactic Acid (Lac-Hydrin 12) 1 applic TP BID [facility] Last Admin: 06/22/19 09:25 Dose: 1 applic Lactulose (Cephulac (Oral Use)) 20 gm PO Q6HPO [facility] Last Admin: 06/22/19 12:26 Dose: 20 gm Lactulose (Cephulac (Rectal Use)) 200 gm [place] TID PRN PRN Reason: AGITATION Melatonin (Melatonin) 5 mg PO HS PRN PRN Reason: INSOMNIA Last Admin: 06/18/19 23:17 Dose: 5 mg Nadolol (Corgard -) 40 mg PO DAILY [facility] Last Admin: 06/22/19 10:37 Dose: 40 mg Nitroglycerin (Nitrostat -) 0.4 mg SL Q5M PRN PRN Reason: FOR CHEST PAIN Last Admin: 06/09/19 02:05 Dose: 0.4 mg Potassium Chloride (K-Dur -) 40 meq PO DAILY [facility] Last Admin: 06/22/19 09:24 Dose: 40 meq Rifaximin (Xifaxan -) 550 mg PO BID [facility] Spironolactone (Aldactone -) 25 mg PO DAILY [facility] Last Admin: 06/22/19 09:24 Dose: 25 mg Tamsulosin HCl (Flomax -) 0.4 mg PO DAILY@0830 [facility] Last Admin: 06/22/19 09:24 Dose: 0.4 mg A/P Acute on Chronic Systolic Heart Failure Volume Overload Pleural Effusion Atrial Fibrillation Acute Kidney Injury Chronic Hypoxic Respiratory Failure COPD Liver Cirrhosis Ascites Pancytopenia DM - check CXR - continue lasix, aldactone - monitor urine output, creatinine - daily weights - trend LFTs - O2 to keep SpO2 >90% - inhaled bronchodilators - rate control - DVT prophylaxis - poor overall prognosis
--- NOTE | 2019-06-22 21:11 | PN ---
Progress Note (short form) - Note Progress Note: covering dr alexy hu 1. SOPHIE in setting of hepatic dysfunction 2. Alcoholic cirrhosis with ascities 3. Anemia 4. Leukopenia/thrombocytopenia 5. CHF with volume overload 6. Hypertension 7. Hypokalemia Current Medications Acetaminophen (Tylenol -) 650 mg PO Q6H PRN PRN Reason: PAIN LEVEL 1-5 Last Admin: 06/17/19 16:37 Dose: 650 mg Artificial Tears (Artificial Tears) 1 drop OU Q12H PRN PRN Reason: DRY EYES Last Admin: 06/08/19 21:25 Dose: 1 drop Furosemide (Lasix -) 100 mg PO BID@0600,1400 [facility] Last Admin: 06/22/19 14:17 Dose: 100 mg Insulin Aspart (Novolog Vial Sliding Scale -) 1 vial SQ ACHS [facility]; Protocol Last Admin: 06/22/19 16:52 Dose: 2 units Lactic Acid (Lac-Hydrin 12) 1 applic TP BID [facility] Last Admin: 06/22/19 09:25 Dose: 1 applic Lactulose (Cephulac (Oral Use)) 20 gm PO Q6HPO [facility] Last Admin: 06/22/19 17:24 Dose: 20 gm Lactulose (Cephulac (Rectal Use)) 200 gm [place] TID PRN PRN Reason: AGITATION Melatonin (Melatonin) 5 mg PO HS PRN PRN Reason: INSOMNIA Last Admin: 06/18/19 23:17 Dose: 5 mg Nadolol (Corgard -) 40 mg PO DAILY [facility] Last Admin: 06/22/19 10:37 Dose: 40 mg Nitroglycerin (Nitrostat -) 0.4 mg SL Q5M PRN PRN Reason: FOR CHEST PAIN Last Admin: 06/09/19 02:05 Dose: 0.4 mg Potassium Chloride (K-Dur -) 40 meq PO DAILY [facility] Last Admin: 06/22/19 09:24 Dose: 40 meq Rifaximin (Xifaxan -) 550 mg PO BID [facility] Spironolactone (Aldactone -) 25 mg PO DAILY [facility] Last Admin: 06/22/19 09:24 Dose: 25 mg Tamsulosin HCl (Flomax -) 0.4 mg PO DAILY@0830 [facility] Last Admin: 06/22/19 09:24 Dose: 0.4 mg Last Vital Signs Temp Pulse Resp BP Pulse Ox 98.4 F 62 20 114/50 L 97 06/22/19 14:00 06/22/19 18:00 06/22/19 18:00 06/22/19 18:00 06/22/19 09:00 lungs clear heart reg abd soft nontender CBC, BMP 06/22/19 06:00 06/22/19 06:00 CBC, BMP 06/19/19 06:15 06/21/19 06:45 IMP- SOPHIE Liver cirrhosis gen edema on lasix bid Renal function stable Continue PO lasix CXR shows improvement in congestion but not complete resolution Continue aldactone at present dose trend renal function and electrolytes Titrate lactulose to 2-3 BM's daily Trend LFT's and bilirbin overall prognosis is guarded covering
[2019-06-22] MEDS ORDERED: PT OWN MED DRAWER 7, Y5N ONE (21:23)
[2019-06-22] MEDS: RIFAXIMIN 550 MG TABLET (UD) PO SCH (22:19)
[2019-06-23] MEDS: FUROSEMIDE 40 MG TABLET (FP) PO SCH ×2 (05:52→14:05)
[2019-06-23] MEDS: LACTULOSE 20 GM/30 ML UDC (FOR ORAL USE ONLY) PO SCH ×4 (05:52→23:31)
[2019-06-23] MEDS: INSULIN SLIDING SCALE (NOVOLOG) 1 VIAL SQ SCH ×4 (06:09→22:17)
[2019-06-23] MEDS ORDERED: PT OWN MED DRAWER 7, Y5N ONE ×2 (08:18→21:23)
[2019-06-23] MEDS: SPIRONOLACTONE 25 MG TABLET (FP) PO SCH (09:57)
[2019-06-23] MEDS: POTASSIUM CHLORIDE TABS 20 MEQ TABLET.ER (FP) PO SCH (09:58)
[2019-06-23] MEDS: TAMSULOSIN HCL 0.4 MG CAP PO SCH (09:58)
[2019-06-23] MEDS: NADOLOL 40 MG TABLET (FP) PO SCH (09:58)
[2019-06-23] MEDS: RIFAXIMIN 550 MG TABLET (UD) PO SCH ×2 (09:59→22:02)
[2019-06-23] MEDS: AMMONIUM LACTATE 12% LOTION 225 GM BOTTLE TP SCH ×2 (09:59→22:09)
--- NOTE | 2019-06-23 10:41 | PN ---
Progress Note, Physician History of Present Illness: pulmonary more awake,-resp distress,jaundiced - Current Medication List Current Medications: Active Medications Acetaminophen (Tylenol -) 650 mg PO Q6H PRN PRN Reason: PAIN LEVEL 1-5 Last Admin: 06/17/19 16:37 Dose: 650 mg Artificial Tears (Artificial Tears) 1 drop OU Q12H PRN PRN Reason: DRY EYES Last Admin: 06/08/19 21:25 Dose: 1 drop Furosemide (Lasix -) 100 mg PO BID@0600,1400 [facility] Last Admin: 06/23/19 05:52 Dose: 100 mg Insulin Aspart (Novolog Vial Sliding Scale -) 1 vial SQ ACHS [facility]; Protocol Last Admin: 06/23/19 06:09 Dose: 2 units Lactic Acid (Lac-Hydrin 12) 1 applic TP BID [facility] Last Admin: 06/23/19 09:59 Dose: 1 applic Lactulose (Cephulac (Oral Use)) 20 gm PO Q6HPO [facility] Last Admin: 06/23/19 05:52 Dose: 20 gm Lactulose (Cephulac (Rectal Use)) 200 gm [place] TID PRN PRN Reason: AGITATION Melatonin (Melatonin) 5 mg PO HS PRN PRN Reason: INSOMNIA Last Admin: 06/18/19 23:17 Dose: 5 mg Nadolol (Corgard -) 40 mg PO DAILY [facility] Last Admin: 06/23/19 09:58 Dose: 40 mg Nitroglycerin (Nitrostat -) 0.4 mg SL Q5M PRN PRN Reason: FOR CHEST PAIN Last Admin: 06/09/19 02:05 Dose: 0.4 mg Potassium Chloride (K-Dur -) 40 meq PO DAILY [facility] Last Admin: 06/23/19 09:58 Dose: 40 meq Rifaximin (Xifaxan -) 550 mg PO BID [facility] Last Admin: 06/23/19 09:59 Dose: 550 mg Spironolactone (Aldactone -) 25 mg PO DAILY [facility] Last Admin: 06/23/19 09:57 Dose: 25 mg Tamsulosin HCl (Flomax -) 0.4 mg PO DAILY@0830 [facility] Last Admin: 06/23/19 09:58 Dose: 0.4 mg - Objective Vital Signs: Vital Signs Temperature 98.7 F 06/23/19 10:00 Pulse Rate 74 06/23/19 10:00 Respiratory Rate 18 06/23/19 10:00 Blood Pressure 127/69 06/23/19 10:00 O2 Sat by Pulse Oximetry (%) 99 06/23/19 10:00 Constitutional: Yes: Calm, Obese Eyes: Yes: WNL HENT: Yes: WNL Neck: Yes: WNL Cardiovascular: Yes: Regular Rate and Rhythm, S1, S2 Respiratory: Yes: Diminished Gastrointestinal: Yes: Normal Bowel Sounds, Soft Extremities: Yes: WNL Edema: Yes Labs: CBC, BMP Problem List - Problems (1) SOPHIE (acute kidney injury) Code(s): N17.9 - ACUTE KIDNEY FAILURE, UNSPECIFIED (2) CHF (congestive heart failure) Code(s): I50.9 - HEART FAILURE, UNSPECIFIED Qualifiers: Heart failure type: unspecified Heart failure chronicity: acute on chronic Qualified Code(s): I50.9 - Heart failure, unspecified (3) Pancytopenia Code(s): D61.818 - OTHER PANCYTOPENIA (4) Acute renal failure (ARF) Code(s): N17.9 - ACUTE KIDNEY FAILURE, UNSPECIFIED (5) Altered mental status Code(s): R41.82 - ALTERED MENTAL STATUS, UNSPECIFIED Qualifiers: Altered mental status type: disorientation Qualified Code(s): R41.0 - Disorientation, unspecified (6) Anemia Code(s): D64.9 - ANEMIA, UNSPECIFIED (7) COPD (chronic obstructive pulmonary disease) Code(s): J44.9 - CHRONIC OBSTRUCTIVE PULMONARY DISEASE, UNSPECIFIED (8) Chronic systolic congestive heart failure Code(s): I50.22 - CHRONIC SYSTOLIC (CONGESTIVE) HEART FAILURE (9) Cirrhosis of liver Code(s): K74.60 - UNSPECIFIED CIRRHOSIS OF LIVER (10) Esophageal varices Code(s): I85.00 - ESOPHAGEAL VARICES WITHOUT BLEEDING (11) Hepatic encephalopathy Code(s): K72.90 - HEPATIC FAILURE, UNSPECIFIED WITHOUT COMA (12) Hypoxia Code(s): R09.02 - HYPOXEMIA (13) Acute on chronic respiratory failure with hypoxia and hypercapnia Code(s): J96.21 - ACUTE AND CHRONIC RESPIRATORY FAILURE WITH HYPOXIA; J96.22 - ACUTE AND CHRONIC RESPIRATORY FAILURE WITH HYPERCAPNIA Assessment/Plan IMP DYSPNEA improved CHF IMPROVING ACUTE ON CHRONIC HYPOXEMIC/HYPERCAPNEIC RESPIRATORY FAILURE IMPROVED VOLUME OVERLOAD IMPROVING ASCITES COPD O2 DEPENDENT PLEURAL EFFUSION HEPATIC ENCEPHALOPATHY WORSENING DM CIRRHOSIS WITH ESOPHAGEAL VARICES S/P BANDING THROMBOCYTOPENIA SOPHIE H/O ETOH PLAN DIURETICS RIFAXIMIN O2 DAILY WTS MONITOR LYTES,RENAL FUNCTION MONITOR H+H LACTULOSE AMMONIA LEVEL TODAY DR COLLAZO Problem List - Problems (1) SOPHIE (acute kidney injury) Code(s): N17.9 - ACUTE KIDNEY FAILURE, UNSPECIFIED (2) CHF (congestive heart failure) Code(s): I50.9 - HEART FAILURE, UNSPECIFIED Qualifiers: Heart failure type: unspecified Heart failure chronicity: acute on chronic Qualified Code(s): I50.9 - Heart failure, unspecified (3) Pancytopenia Code(s): D61.818 - OTHER PANCYTOPENIA (4) Acute renal failure (ARF) Code(s): N17.9 - ACUTE KIDNEY FAILURE, UNSPECIFIED (5) Altered mental status Code(s): R41.82 - ALTERED MENTAL STATUS, UNSPECIFIED Qualifiers: Altered mental status type: disorientation Qualified Code(s): R41.0 - Disorientation, unspecified (6) Anemia Code(s): D64.9 - ANEMIA, UNSPECIFIED (7) COPD (chronic obstructive pulmonary disease) Code(s): J44.9 - CHRONIC OBSTRUCTIVE PULMONARY DISEASE, UNSPECIFIED (8) Chronic systolic congestive heart failure Code(s): I50.22 - CHRONIC SYSTOLIC (CONGESTIVE) HEART FAILURE (9) Cirrhosis of liver Code(s): K74.60 - UNSPECIFIED CIRRHOSIS OF LIVER (10) Esophageal varices Code(s): I85.00 - ESOPHAGEAL VARICES WITHOUT BLEEDING (11) Hepatic encephalopathy Code(s): K72.90 - HEPATIC FAILURE, UNSPECIFIED WITHOUT COMA (12) Hypoxia Code(s): R09.02 - HYPOXEMIA (13) Acute on chronic respiratory failure with hypoxia and hypercapnia Code(s): J96.21 - ACUTE AND CHRONIC RESPIRATORY FAILURE WITH HYPOXIA; J96.22 - ACUTE AND CHRONIC RESPIRATORY FAILURE WITH HYPERCAPNIA
--- NOTE | 2019-06-23 12:18 | PN ---
Progress Note, GUEST RELATIONS COORDINATOR - Note Progress Note: Selected Entries 06/22/19 06/22/19 06/22/19 06:00 09:31 14:00 Breakfast Lunch Supper Temperature 98.0 F 98.0 F 98.4 F 06/22/19 06/22/19 06/22/19 15:50 18:00 20:00 Breakfast 50% Lunch 0 Supper 75% Temperature 98.7 F 06/23/19 06/23/19 06/23/19 02:00 10:00 11:05 Breakfast 50% Lunch Supper Temperature 99.0 F 98.7 F Laboratory Tests 06/22/19 06:00 WBC 5.9 Pt was lethargic yesterday, coughing on PO trials. Jaundiced, speech less clear, swallow delayed, coughing with and without PO intake. Aspiration. Accepted to [facility]. He is a full code. PO, as tolerated. May need to be downgraded again, to puree/nectar.
--- NOTE | 2019-06-23 12:44 | PN ---
Progress Note (short form) - Note Progress Note: Renal follow up for SOPHIE/CKD Seen and examined at the bedside awake and alert offers no acute complaints making urine Vital Signs Temperature 98.7 F 06/23/19 10:00 Pulse Rate 74 06/23/19 10:00 Respiratory Rate 18 06/23/19 10:00 Blood Pressure 127/69 06/23/19 10:00 O2 Sat by Pulse Oximetry (%) 99 06/23/19 10:00 Intake & Output 06/20/19 06/21/19 06/22/19 06/23/19 23:59 23:59 23:59 23:59 Intake Total 720 250 560 230 Output Total 1350 Balance -630 250 560 230 Weight 102.875 kg 101.786 kg 100.516 kg 100.516 kg NAD awake and alert neck supple RRR Dec BS + abd ascities + LE edema CBC, BMP 06/22/19 06:00 06/22/19 06:00 Current Medications Acetaminophen (Tylenol -) 650 mg PO Q6H PRN PRN Reason: PAIN LEVEL 1-5 Last Admin: 06/17/19 16:37 Dose: 650 mg Artificial Tears (Artificial Tears) 1 drop OU Q12H PRN PRN Reason: DRY EYES Last Admin: 06/08/19 21:25 Dose: 1 drop Furosemide (Lasix -) 100 mg PO BID@0600,1400 [facility] Last Admin: 06/23/19 05:52 Dose: 100 mg Insulin Aspart (Novolog Vial Sliding Scale -) 1 vial SQ ACHS [facility]; Protocol Last Admin: 06/23/19 12:15 Dose: 4 units Lactic Acid (Lac-Hydrin 12) 1 applic TP BID [facility] Last Admin: 06/23/19 09:59 Dose: 1 applic Lactulose (Cephulac (Oral Use)) 20 gm PO Q6HPO [facility] Last Admin: 06/23/19 12:16 Dose: 20 gm Lactulose (Cephulac (Rectal Use)) 200 gm [place] TID PRN PRN Reason: AGITATION Melatonin (Melatonin) 5 mg PO HS PRN PRN Reason: INSOMNIA Last Admin: 06/18/19 23:17 Dose: 5 mg Nadolol (Corgard -) 40 mg PO DAILY [facility] Last Admin: 06/23/19 09:58 Dose: 40 mg Nitroglycerin (Nitrostat -) 0.4 mg SL Q5M PRN PRN Reason: FOR CHEST PAIN Last Admin: 06/09/19 02:05 Dose: 0.4 mg Potassium Chloride (K-Dur -) 40 meq PO DAILY [facility] Last Admin: 06/23/19 09:58 Dose: 40 meq Rifaximin (Xifaxan -) 550 mg PO BID [facility] Last Admin: 06/23/19 09:59 Dose: 550 mg Spironolactone (Aldactone -) 25 mg PO DAILY [facility] Last Admin: 06/23/19 09:57 Dose: 25 mg Tamsulosin HCl (Flomax -) 0.4 mg PO DAILY@0830 [facility] Last Admin: 06/23/19 09:58 Dose: 0.4 mg 74 year old gentleman with history of Alcoholic cirrhosis, hypertension, CHF presented with shortness of breath and increased abdominal girth and admitted for worsening ascities. 1. SOPHIE in setting of hepatic dysfunction 2. Alcoholic cirrhosis with ascities 3. Anemia 4. Leukopenia/thrombocytopenia 5. CHF with volume overload 6. Hypertension 7. Hypokalemia Renal function remains stable, no overt electrolyte or acid base disturbance Continue PO BID Lasix for volume management Continue aldactone at present dose trend renal function and electrolytes GI follow up prognosis is guarded Ang Sanchez DO
--- NOTE | 2019-06-23 13:52 | PN ---
Progress Note (short form) - Note Progress Note: spoke to the HCP regarding [facility] acute care bed patient ful code hcp will speak to the rst of family lorenzo and decide regarding placment of the pateint Problem List - Problems (1) Change in mental status Code(s): R41.82 - ALTERED MENTAL STATUS, UNSPECIFIED (2) Cirrhosis of liver Code(s): K74.60 - UNSPECIFIED CIRRHOSIS OF LIVER (3) CHF (congestive heart failure) Code(s): I50.9 - HEART FAILURE, UNSPECIFIED Qualifiers: Heart failure type: unspecified Heart failure chronicity: acute on chronic Qualified Code(s): I50.9 - Heart failure, unspecified (4) Ascites Code(s): R18.8 - OTHER ASCITES (5) Type II diabetes mellitus, uncontrolled Code(s): E11.65 - TYPE 2 DIABETES MELLITUS WITH HYPERGLYCEMIA (6) Acquired thrombocytopenia Code(s): D69.59 - OTHER SECONDARY THROMBOCYTOPENIA (7) Afib Code(s): I48.91 - UNSPECIFIED ATRIAL FIBRILLATION
[2019-06-23] MEDS ORDERED: MULTIVIT INJ. ADULT COMBO WITH VIT K 1 COMBO 10 ML VIAL IV SCH (14:00)
[2019-06-23] MEDS: MULTIVIT-MINERALS ORAL LIQUID PO SCH (14:37)
[2019-06-23] MEDS: MELATONIN 5 MG TABLETS PO PRN (22:02)
[2019-06-23] MEDS ORDERED: INSULIN (NOVOLOG) ASPART 100 UNITS/ML 10ML VIAL ONE (22:18)
[2019-06-24] MEDS: FUROSEMIDE 40 MG TABLET (FP) PO SCH ×2 (05:31→14:54)
[2019-06-24] MEDS: LACTULOSE 20 GM/30 ML UDC (FOR ORAL USE ONLY) PO SCH ×2 (05:31→12:30)
[2019-06-24] MEDS: INSULIN SLIDING SCALE (NOVOLOG) 1 VIAL SQ SCH ×2 (06:14→12:13)
[2019-06-24] MEDS ORDERED: PT OWN MED DRAWER 7, Y5N ONE (08:00)
[2019-06-24] MEDS: TAMSULOSIN HCL 0.4 MG CAP PO SCH (08:12)
--- NOTE | 2019-06-24 09:20 | DS ---
Physical Examination Vital Signs: Vital Signs Temperature 98.0 F 06/24/19 08:21 Pulse Rate 67 06/24/19 08:21 Respiratory Rate 20 06/24/19 08:21 Blood Pressure 122/47 L 06/24/19 08:21 O2 Sat by Pulse Oximetry (%) 97 06/24/19 08:21 Labs: CBC, BMP 06/22/19 06:00 06/22/19 06:00 Discharge Summary Problems reviewed: Yes Reason For Visit: ACUTE KIDNEY INJURY,CHF,ELEVATED TROPONIN LEVEL Current Active Problems SOPHIE (acute kidney injury) (Acute) Acute on chronic respiratory failure with hypoxia and hypercapnia (Acute) Afib (Acute) Ascites (Acute) CHF (congestive heart failure) (Acute) Change in mental status (Acute) Hypokalemia (Acute) Pancytopenia (Acute) Troponin level elevated (Acute) Hospital Course: ADMITTED CIRRHOSIS, FLUID OVERLOAD, TREATED WITH GI/CARDIO/RENAL FOR CONGESTIVE HF, CRF, ARF, CIRRHOSIS ETOH, TOXIC METABOLIC ENCEPHALOPTHY, CONFUSION, EDEMA. Plan of Treatment: DIURESE WITH TORSEMIDE 60MG DAILY AND ALDACTONE 25MG DAILY, THEN TAPER OFF METOLAZONE FROM 5MG DAILY FOR 2 DAYS THEN 2.5MG DAILT FOR 2 DAYS THEN EVERY OTHER DAY FOR 1 WEEK. Goals: CHECK LABS BMP EVERY 3 DAYS TAPER OFF METOLAZONE Condition: Stable - Instructions Diet, Activity, Other Instructions: DIURETICS TORSEMIDE 60MG DAILY ALDACTONE 25MG DAILT THEN TAPER OFF METOLAZONE FROM 5MG DAILY TO 2.5MG DAILY YHEN EVERY OTHER DAY NEEDED CHECK BMP EVERY 3 DAYS NO AC/ANTIPLATLETS BECAUSE OF LIVER FAILURE GI AND CARDIO FOLLOW UP RENAL FOLLOW UP Referrals: Nidhi Vargas MD [Primary Care Provider] - Ang Sanchez MD [Staff Physician] - Disposition: SNF FACILITY - Home Medications Comprehensive Discharge Medication List: Ambulatory Orders Tamsulosin HCl [Flomax] 0.4 mg PO DAILY 11/05/18 Insulin Sliding Scale [Novolog Vial Sliding Scale -] 1 vial SQ ACHS units 04/05 Ascorbate Calcium [Vitamin C] 500 mg PO DAILY 05/27/19 Dextran 70/Hypromellose/Pf [Artificial Tears Drops] 1 each OP DAILY 05/27/19 Albuterol 0.083% Nebulizer Patricia [Ventolin 0.083% Nebulizer Soln -] 1 amp NEB Q6H PRN amp 06/18/19 Ammonium Lactate Lotion [Lac-Hydrin 12] 1 applic TP BID bottle 06/18/19 Lactulose (Rectal Use) [Cephulac (Rectal Use)] 200 gm [place] TID PRN udc 06/18/19 Polyvinyl Alcohol [Artificial Tears] 1 drop OU Q12H PRN drops 06/18/19 Furosemide [Lasix -] 100 mg PO BID@0600,1400 tablet 06/24/19 Lactulose (Oral Use) [Cephulac -] 20 gm PO Q6HPO udc 06/24/19 Melatonin 5 mg PO HS PRN tab 06/24/19 Multivit-Minerals [Certavite-Antioxidant Liquid] 15 ml PO DAILY cup 06/24/19
[2019-06-24] MEDS: POTASSIUM CHLORIDE TABS 20 MEQ TABLET.ER (FP) PO SCH (09:59)
[2019-06-24] MEDS: MULTIVIT-MINERALS ORAL LIQUID PO SCH (09:59)
[2019-06-24] MEDS: SPIRONOLACTONE 25 MG TABLET (FP) PO SCH (09:59)
[2019-06-24] MEDS: AMMONIUM LACTATE 12% LOTION 225 GM BOTTLE TP SCH (10:02)
[2019-06-24] MEDS: RIFAXIMIN 550 MG TABLET (UD) PO SCH (10:02)
[2019-06-24] MEDS: NADOLOL 40 MG TABLET (FP) PO SCH (10:02)
--- NOTE | 2019-06-24 11:08 | PN ---
Progress Note, LEARNING CENTER INSTRUCTOR - Note Progress Note: Selected Entries 06/23/19 06/23/19 06/24/19 14:00 18:00 01:56 Lunch 50% Supper 100% Temperature 97.8 F 06/24/19 06/24/19 05:02 08:21 Lunch Supper Temperature 97.9 F 98.0 F Laboratory Tests 06/22/19 06:00 WBC 5.9 Nursing reports good po tolerance without cough yesterday and this am. Pending d/c
--- NOTE | 2019-06-24 11:20 | PN ---
Progress Note, Physician History of Present Illness: pulmonary more alert,comfortable,-resp distress - Current Medication List Current Medications: Active Medications Acetaminophen (Tylenol -) 650 mg PO Q6H PRN PRN Reason: PAIN LEVEL 1-5 Last Admin: 06/17/19 16:37 Dose: 650 mg Artificial Tears (Artificial Tears) 1 drop OU Q12H PRN PRN Reason: DRY EYES Last Admin: 06/08/19 21:25 Dose: 1 drop Furosemide (Lasix -) 100 mg PO BID@0600,1400 [facility] Last Admin: 06/24/19 05:31 Dose: 100 mg Insulin Aspart (Novolog Vial Sliding Scale -) 1 vial SQ ACHS [facility]; Protocol Last Admin: 06/24/19 06:14 Dose: 4 units Lactic Acid (Lac-Hydrin 12) 1 applic TP BID [facility] Last Admin: 06/24/19 10:02 Dose: 1 applic Lactulose (Cephulac (Oral Use)) 20 gm PO Q6HPO [facility] Last Admin: 06/24/19 05:31 Dose: 20 gm Lactulose (Cephulac (Rectal Use)) 200 gm SC TID PRN PRN Reason: AGITATION Melatonin (Melatonin) 5 mg PO HS PRN PRN Reason: INSOMNIA Last Admin: 06/23/19 22:02 Dose: 5 mg Multivitamins/Minerals (Certavite-Antioxidant Liquid) 15 ml PO DAILY [facility] Last Admin: 06/24/19 09:59 Dose: 15 ml Nadolol (Corgard -) 40 mg PO DAILY [facility] Last Admin: 06/24/19 10:02 Dose: 40 mg Nitroglycerin (Nitrostat -) 0.4 mg SL Q5M PRN PRN Reason: FOR CHEST PAIN Last Admin: 06/09/19 02:05 Dose: 0.4 mg Potassium Chloride (K-Dur -) 40 meq PO DAILY [facility] Last Admin: 06/24/19 09:59 Dose: 40 meq Rifaximin (Xifaxan -) 550 mg PO BID [facility] Last Admin: 06/24/19 10:02 Dose: 550 mg Spironolactone (Aldactone -) 25 mg PO DAILY [facility] Last Admin: 06/24/19 09:59 Dose: 25 mg Tamsulosin HCl (Flomax -) 0.4 mg PO DAILY@0830 [facility] Last Admin: 06/24/19 08:12 Dose: 0.4 mg - Objective Vital Signs: Vital Signs Temperature 98.0 F 06/24/19 08:21 Pulse Rate 67 06/24/19 08:21 Respiratory Rate 20 06/24/19 08:21 Blood Pressure 122/47 L 06/24/19 08:21 O2 Sat by Pulse Oximetry (%) 97 06/24/19 08:21 Constitutional: Yes: Calm, Obese Eyes: Yes: WNL HENT: Yes: WNL Neck: Yes: WNL Cardiovascular: Yes: Regular Rate and Rhythm, S1, S2 Respiratory: Yes: Diminished Gastrointestinal: Yes: Normal Bowel Sounds, Soft Extremities: Yes: WNL Edema: Yes Labs: CBC, BMP 06/22/19 06:00 06/22/19 06:00 INR, PTT INR 1.30 (0.83-1.09) H 05/27/19 11:05 Problem List - Problems (1) SOPHIE (acute kidney injury) Code(s): N17.9 - ACUTE KIDNEY FAILURE, UNSPECIFIED (2) CHF (congestive heart failure) Code(s): I50.9 - HEART FAILURE, UNSPECIFIED Qualifiers: Heart failure type: unspecified Heart failure chronicity: acute on chronic Qualified Code(s): I50.9 - Heart failure, unspecified (3) Pancytopenia Code(s): D61.818 - OTHER PANCYTOPENIA (4) Acute renal failure (ARF) Code(s): N17.9 - ACUTE KIDNEY FAILURE, UNSPECIFIED (5) Altered mental status Code(s): R41.82 - ALTERED MENTAL STATUS, UNSPECIFIED Qualifiers: Altered mental status type: disorientation Qualified Code(s): R41.0 - Disorientation, unspecified (6) Anemia Code(s): D64.9 - ANEMIA, UNSPECIFIED (7) COPD (chronic obstructive pulmonary disease) Code(s): J44.9 - CHRONIC OBSTRUCTIVE PULMONARY DISEASE, UNSPECIFIED (8) Chronic systolic congestive heart failure Code(s): I50.22 - CHRONIC SYSTOLIC (CONGESTIVE) HEART FAILURE (9) Cirrhosis of liver Code(s): K74.60 - UNSPECIFIED CIRRHOSIS OF LIVER (10) Esophageal varices Code(s): I85.00 - ESOPHAGEAL VARICES WITHOUT BLEEDING (11) Hepatic encephalopathy Code(s): K72.90 - HEPATIC FAILURE, UNSPECIFIED WITHOUT COMA (12) Hypoxia Code(s): R09.02 - HYPOXEMIA (13) Acute on chronic respiratory failure with hypoxia and hypercapnia Code(s): J96.21 - ACUTE AND CHRONIC RESPIRATORY FAILURE WITH HYPOXIA; J96.22 - ACUTE AND CHRONIC RESPIRATORY FAILURE WITH HYPERCAPNIA Assessment/Plan IMP DYSPNEA improved CHF IMPROVED ACUTE ON CHRONIC HYPOXEMIC/HYPERCAPNEIC RESPIRATORY FAILURE IMPROVED VOLUME OVERLOAD IMPROVING ASCITES COPD O2 DEPENDENT PLEURAL EFFUSION HEPATIC ENCEPHALOPATHY WORSENING DM CIRRHOSIS WITH ESOPHAGEAL VARICES S/P BANDING THROMBOCYTOPENIA SOPHIE ON CKD STABLE H/O ETOH PLAN DIURETICS RIFAXIMIN O2 DAILY WTS MONITOR H+H LACTULOSE DR COLLAZO Problem List - Problems (1) SOPHIE (acute kidney injury) Code(s): N17.9 - ACUTE KIDNEY FAILURE, UNSPECIFIED (2) CHF (congestive heart failure) Code(s): I50.9 - HEART FAILURE, UNSPECIFIED Qualifiers: Heart failure type: unspecified Heart failure chronicity: acute on chronic Qualified Code(s): I50.9 - Heart failure, unspecified (3) Pancytopenia Code(s): D61.818 - OTHER PANCYTOPENIA (4) Acute renal failure (ARF) Code(s): N17.9 - ACUTE KIDNEY FAILURE, UNSPECIFIED (5) Altered mental status Code(s): R41.82 - ALTERED MENTAL STATUS, UNSPECIFIED Qualifiers: Altered mental status type: disorientation Qualified Code(s): R41.0 - Disorientation, unspecified (6) Anemia Code(s): D64.9 - ANEMIA, UNSPECIFIED (7) COPD (chronic obstructive pulmonary disease) Code(s): J44.9 - CHRONIC OBSTRUCTIVE PULMONARY DISEASE, UNSPECIFIED (8) Chronic systolic congestive heart failure Code(s): I50.22 - CHRONIC SYSTOLIC (CONGESTIVE) HEART FAILURE (9) Cirrhosis of liver Code(s): K74.60 - UNSPECIFIED CIRRHOSIS OF LIVER (10) Esophageal varices Code(s): I85.00 - ESOPHAGEAL VARICES WITHOUT BLEEDING (11) Hepatic encephalopathy Code(s): K72.90 - HEPATIC FAILURE, UNSPECIFIED WITHOUT COMA (12) Hypoxia Code(s): R09.02 - HYPOXEMIA (13) Acute on chronic respiratory failure with hypoxia and hypercapnia Code(s): J96.21 - ACUTE AND CHRONIC RESPIRATORY FAILURE WITH HYPOXIA; J96.22 - ACUTE AND CHRONIC RESPIRATORY FAILURE WITH HYPERCAPNIA
[2019-06-24 14:10] VITALS: BMI 27.4
[2019-06-24 14:50] VITALS: BP 117/52; PULSE 66; TEMP 98.2
== END 2019-06-24 16:32 | DRG 441 ==
LOC: JER 10:23 → JERBED 12:08 → J4W 18:22 → JSAMEDAYSX 18:24 → J4W 18:25 → J4S 06-01 19:04 → J4W 06-14 22:16
PROVIDERS: ADMIT Family Medicine; ATTEND Family Medicine
DX: K72.90 Hepatic failure, unspecified without coma (principal); J96.21 Acute and chronic respiratory failure with hypoxia; J96.22 Acute and chronic respiratory failure with hypercapnia; I50.23 Acute on chronic systolic (congestive) heart failure; G93.41 Metabolic encephalopathy; I85.00 Esophageal varices without bleeding; N17.9 Acute kidney failure, unspecified; J98.11 Atelectasis; D61.818 Other pancytopenia; J90 Pleural effusion, not elsewhere classified; D68.9 Coagulation defect, unspecified; I13.0 Hypertensive heart and chronic kidney disease with heart failure and stage 1 through stage 4 chronic kidney disease, or unspecified chronic kidney disease; K76.6 Portal hypertension; I47.1 Supraventricular tachycardia; J44.9 Chronic obstructive pulmonary disease, unspecified; F17.210 Nicotine dependence, cigarettes, uncomplicated; D64.9 Anemia, unspecified; I44.7 Left bundle-branch block, unspecified; N40.0 Benign prostatic hyperplasia without lower urinary tract symptoms; R79.89 Other specified abnormal findings of blood chemistry; E11.65 Type 2 diabetes mellitus with hyperglycemia; E66.9 Obesity, unspecified; Z68.27 Body mass index [BMI] 27.0-27.9, adult; E87.70 Fluid overload, unspecified; D69.6 Thrombocytopenia, unspecified; K76.9 Liver disease, unspecified; E11.22 Type 2 diabetes mellitus with diabetic chronic kidney disease; N18.9 Chronic kidney disease, unspecified; E87.5 Hyperkalemia; R26.9 Unspecified abnormalities of gait and mobility; D73.1 Hypersplenism; I48.0 Paroxysmal atrial fibrillation; I07.1 Rheumatic tricuspid insufficiency; K70.31 Alcoholic cirrhosis of liver with ascites; E87.6 Hypokalemia; Z99.81 Dependence on supplemental oxygen
CPT/HCPCS: 36415; 36600; 71045-TC-FY; 71250-TC; 74230-TC-FY; 76705-TC; 80048; 80053; 80061; 81003; 82105; 82140; 82247; 82248; 82550; 82570; 82607; 82747; 82803; 82962; 83036; 83540; 83550; 83721; 83735; 83880; 84100; 84155; 84156; 84165; 84443; 84484; 85014; 85025; 85027; 85610; 85730; 87086; 88300-TC; 92611-GN; 93005; 93010; 93306-TC; 94640; 97116-GP; 97162-GP; 99285-25; J1644; P9047

== ENCOUNTER 2019-06-26 06:07 | Inpatient (IN) | payer OTHER ==
--- NOTE | 2019-06-26 07:12 | PDOC ---
Attending Attestation - Resident Resident Name: Cole Louise - HPI HPI: 06/26/19 08:55 Pt presents to the ED after sent in for low platelets. Patient was discharged from [place] on 06/24 for liver failure, renal failure and CHF. Returned to the ED today for hyperammonemia and low platelets. PAtient is confused, which appears to be his baseline, and unable to give history. 06/26/19 08:55 - Physicial Exam PE: 06/26/19 09:30 agree with resident exam. patient is confused and jaundiced. aaox2. 06/26/19 10:02 - Medical Decision Making 06/26/19 10:04 Pt presents to the ED after sent in from [place] for abnormal labs. Labs appear to be at baseline, but patient has a UTI. Given his chronic multiorgan system failure and his history of resistant UTIs in the past, he will be admitted for inpatient treatment. Will start IV antibiotics and admit.
--- NOTE | 2019-06-26 07:14 | PDOC ---
History of Present Illness - General Chief Complaint: Abnormal Lab Results (Outside) Stated Complaint: ABNORMAL LABS Time Seen by Provider: 06/26/19 07:12 Past History - Past Medical History Allergies/Adverse Reactions: Allergies Allergy/AdvReac Type Severity Reaction Status Date / Time No Known Allergies Allergy Verified 06/26/19 06:52 Home Medications: Ambulatory Orders Tamsulosin HCl [Flomax] 0.4 mg PO DAILY 11/05/18 Ascorbate Calcium [Vitamin C] 500 mg PO DAILY 05/27/19 Dextran 70/Hypromellose/Pf [Artificial Tears Drops] 1 each OP DAILY 05/27/19 Albuterol 0.083% Nebulizer Patricia [Ventolin 0.083% Nebulizer Soln -] 1 amp NEB Q6H PRN amp 06/18/19 Ammonium Lactate Lotion [Lac-Hydrin 12] 1 applic TP BID bottle 06/18/19 Polyvinyl Alcohol [Artificial Tears] 1 drop OU Q12H PRN drops 06/18/19 Furosemide [Lasix -] 100 mg PO BID@0600,1400 tablet 06/24/19 Lactulose (Oral Use) [Cephulac -] 20 gm PO Q6HPO udc 06/24/19 Melatonin 5 mg PO HS PRN tab 06/24/19 Multivit-Minerals [Certavite-Antioxidant Liquid] 15 ml PO DAILY cup 06/24/19 Acetaminophen [Tylenol] 650 mg PO PRN 06/26/19 Insulin Lispro [Humalog] 0 unit SQ DAILY 06/26/19 Nadolol 40 mg PO DAILY 06/26/19 Nitroglycerin 0.4 mg SL DAILY 06/26/19 Rifaximin [Xifaxan] 550 mg PO BID 06/26/19 Spironolactone [Aldactone] 25 mg PO DAILY 06/26/19 Anemia: Yes Asthma: No Cancer: No Cardiac Disorders: Yes (CHF) CVA: No COPD: Yes (EMPHYSEMA) CHF: Yes Dementia: No Diabetes: Yes (NIDDM) GI Disorders: Yes (ESOPHAGEAL VARICES) Disorders: Yes (ESBL IN URINE) HTN: No Hypercholesterolemia: No Liver Disease: Yes (CIRRHOSIS) Seizures: No Thyroid Disease: No - Surgical History Abdominal Surgery: Yes (ESOPHAGEAL SX, HERNIA) Appendectomy: No Cardiac Surgery: No Cholecystectomy: No Lung Surgery: No Neurologic Surgery: No Orthopedic Surgery: No - Immunization History Immunization Up to Date: Yes - Psycho Social/Smoking Cessation Hx Smoking Status: Yes Smoking History: Never smoked Have you smoked in the past 12 months: Yes Number of Cigarettes Smoked Daily: 10 If you are a former smoker, when did you quit?: smokes daily Information on smoking cessation initiated: No 'Breaking Loose' booklet given: 11/30/18 Hx Alcohol Use: No Drug/Substance Use Hx: No Substance Use Type: Alcohol Hx Substance Use Treatment: No *Physical Exam - Vital Signs Last Vital Signs Temp Pulse Resp BP Pulse Ox 99.4 F 120 H 18 103/86 97 06/26/19 06:15 06/26/19 06:15 06/26/19 06:15 06/26/19 06:15 06/26/19 06:15
--- NOTE | 2019-06-26 07:21 | PDOC ---
History of Present Illness - General Chief Complaint: Abnormal Lab Results (Outside) Stated Complaint: ABNORMAL LABS Time Seen by Provider: 06/26/19 07:12 History Source: Patient Exam Limitations: Clinical Condition - History of Present Illness Initial Comments: José Manuel Marie is a 74 yo m w a pmh of liver cirrhosis, esophageal varices (sp banding), IDDM, CHF, COPD, CKD, and HTN who presents to the [facility] er from [facility] with a low platelet count. He was recently seen in our hospital on multiple occasions for elevated ammonia levels, respiratory failure, CKD, and Altered mental status. He was discharged a few days ago [facility] level and dropping platelet count. The patient has been treated with lactulose and rifaximin on multiple occasions. The patient does not provide much history. He knows that he is in [facility] but does not know why he is here. Denies any current complaints. Denies chest pain, SOB, difficulty breathing, abdominal pain, back pain PCP: Dr. Vargas PSH: Hernia repair, esophageal varices banding Allergies: NKA, NKDA Social Hx: smokes 1/2 PPD, former heavy alcohol abuse, denies other illicit drug usage Past History - Past Medical History Allergies/Adverse Reactions: Allergies Allergy/AdvReac Type Severity Reaction Status Date / Time No Known Allergies Allergy Verified 06/26/19 06:52 Home Medications: Ambulatory Orders Tamsulosin HCl [Flomax] 0.4 mg PO DAILY 11/05/18 Ascorbate Calcium [Vitamin C] 500 mg PO DAILY 05/27/19 Dextran 70/Hypromellose/Pf [Artificial Tears Drops] 1 each OP DAILY 05/27/19 Albuterol 0.083% Nebulizer Patricia [Ventolin 0.083% Nebulizer Soln -] 1 amp NEB Q6H PRN amp 06/18/19 Ammonium Lactate Lotion [Lac-Hydrin 12] 1 applic TP BID bottle 06/18/19 Polyvinyl Alcohol [Artificial Tears] 1 drop OU Q12H PRN drops 06/18/19 Furosemide [Lasix -] 100 mg PO BID@0600,1400 tablet 06/24/19 Lactulose (Oral Use) [Cephulac -] 20 gm PO Q6HPO udc 06/24/19 Melatonin 5 mg PO HS PRN tab 06/24/19 Multivit-Minerals [Certavite-Antioxidant Liquid] 15 ml PO DAILY cup 06/24/19 Acetaminophen [Tylenol] 650 mg PO PRN 06/26/19 Insulin Lispro [Humalog] 0 unit SQ DAILY 06/26/19 Nadolol 40 mg PO DAILY 06/26/19 Nitroglycerin 0.4 mg SL DAILY 06/26/19 Rifaximin [Xifaxan] 550 mg PO BID 06/26/19 Spironolactone [Aldactone] 25 mg PO DAILY 06/26/19 Anemia: Yes Asthma: No Cancer: No Cardiac Disorders: Yes (CHF) CVA: No COPD: Yes (EMPHYSEMA) CHF: Yes Dementia: No Diabetes: Yes (NIDDM) GI Disorders: Yes (ESOPHAGEAL VARICES) Disorders: Yes (ESBL IN URINE) HTN: No Hypercholesterolemia: No Liver Disease: Yes (CIRRHOSIS) Seizures: No Thyroid Disease: No - Surgical History Abdominal Surgery: Yes (ESOPHAGEAL SX, HERNIA) Appendectomy: No Cardiac Surgery: No Cholecystectomy: No Lung Surgery: No Neurologic Surgery: No Orthopedic Surgery: No - Immunization History Immunization Up to Date: Yes - Psycho Social/Smoking Cessation Hx Smoking Status: Yes Smoking History: Never smoked Have you smoked in the past 12 months: Yes Number of Cigarettes Smoked Daily: 10 If you are a former smoker, when did you quit?: smokes daily Information on smoking cessation initiated: No 'Breaking Loose' booklet given: 11/30/18 Hx Alcohol Use: No Drug/Substance Use Hx: No Substance Use Type: Alcohol Hx Substance Use Treatment: No Review of Systems - Review of Systems Able to Perform ROS?: No (Patient non-cooperative) *Physical Exam - Vital Signs Last Vital Signs Temp Pulse Resp BP Pulse Ox 99.4 F 120 H 18 103/86 97 06/26/19 06:15 06/26/19 06:15 06/26/19 06:15 06/26/19 06:15 06/26/19 06:15 - Physical Exam Comments: GENERAL: Severly Jaundice, Ill appearing, not well kept. No apparent distress. HEENT: Normocephalic, atraumatic. PERRL. CARDIOVASCULAR: Tachycardic rate. Normal S1, S2 PULMONARY: There are bilateral crackles at the bases. No wheezing or rhonchi. ABDOMEN: Abdomen is distended and there is a fluid wave. There appears to be ascitis. EXTREMITIES: Limited ROM in all four extremities. SKIN: Warm, Dry. Multiple echymoses throughout patient's body. NEUROLOGICAL: No focal neurological deficits. ED Treatment Course - LABORATORY CBC & Chemistry Diagram: 06/26/19 07:30 06/26/19 07:20 - RADIOLOGY Radiograph Interpretation: CXR: Chest: Shortness of breath Portable view of the chest is been submitted. Since the prior study of 06/22/2019 again noted is rotation to the left with large heart, sclerotic knob and central congestive changes. There may be some atelectasis or infiltrate at the left base. There is right skin fold artifact. The right angle is not fully visualized. Correlation recommended CT: Rule out bleed CT scan of the head without intravenous contrast Compared to prior CT scan of the head dated 03/27/2019 There is moderate volume loss, ventricular dilatation and probable mild periventricular chronic microvascular ischemic disease changes. No mass lesion, gross acute infarct or intracranial hemorrhage are identified. There is no shift of the midline structures. The calvarium is intact. Partial opacification of the right ethmoid air cells. Right maxillary antrum is totally opacified. Right mastoid air cells are partially opacified. Left mastoid air cells are well aerated. IMPRESSION: Moderate volume loss/atrophy without gross evidence of acute intracranial pathology. Correlate clinically to determine further evaluation and follow-up. Chronic sinusitis. Medical Decision Making - Medical Decision Making José Manuel Marie is a 74 yo m w a pmh of liver cirrhosis, esophageal varices (sp banding), IDDM, CHF, COPD, CKD, and HTN who presents to the [facility] er from [facility] with a low platelet count. He was recently seen in our hospital on multiple occasions for elevated ammonia levels, respiratory failure, CKD, and Altered mental status. He was discharged a few days ago [facility] level and dropping platelet count. The patient has been treated with lactulose and rifaximin on multiple occasions. The patient does not provide much history. He knows that he is in [facility] but does not know why he is here. Denies any current complaints. Denies chest pain, SOB, difficulty breathing, abdominal pain, back pain Vital Signs Temp Pulse Resp BP Pulse Ox 99.5 F 113 H 27 H 122/76 97 06/26/19 07:10 06/26/19 07:10 06/26/19 07:10 06/26/19 07:10 06/26/19 07:10 DDx IBNLT: Cirhosis vs ascites, SBP, Pulm edema/pleural effusion, Heart failure , pancytopenia Plan: Labs, Urine, CXR, EKG, CT, Admit EKG: A-fib with RVR ventricular rate of 105, Non-specific intraventricular block , Right axis deviation, no hypertrophy, Discordant ST elevations in V1-V3, discordant ST depression in II, III, aVF, V6. These abnormalities were mostly present on Jun 10 2019 Labs: Lactic acidosis, elevated ammonia, VBG suggesting chronic respiratory acidosis Urine: Suggestive of UTI - prior cultures in 2014 showed ESBL resistant to everything except Gent, amikacin, tigacycline. Concern is the patient already has CKD and don't want to destroy his remaining kidney function - Will Consult Dr. tariq regarding which Abx to use. CXR: Left base increased markings Head CT: No acute bleed, chronic sinusitis PCP Dr. Shay Consult: Hasn't been seen by PCP's office since January - patient went to rehab facility and now uses [facility] Consult: Does not want patient admitted. Question is whether ID want to treat his UTI. Disposition: Admit to Med/Surg for UTI Discharge - Discharge Information Problems reviewed: Yes Clinical Impression/Diagnosis: UTI (urinary tract infection) Qualifiers: Urinary tract infection type: site unspecified Hematuria presence: without hematuria Qualified Code(s): N39.0 - Urinary tract infection, site not specified Condition: Guarded - Admission Yes - Follow up/Referral Referrals: Nidhi Vargas MD [Primary Care Provider] - - Patient Discharge Instructions - Post Discharge Activity
[2019-06-26 08:50] LABS: EOS % 5.7 % (0-4.5); HEMATOCRIT 34.9 % (35.4-49); HEMOGLOBIN 11.7 GM/dL (11.7-16.9); LYMPH % 21.4 % (8-40); MCH 34.2 pg (25.7-33.7); MCHC 33.4 g/dl (32.0-35.9); MEAN CELL VOLUME 102.3 fl (80-96); MEAN PLT VOLUME 11.1 fl (7.5-11.1); MONO % 6.4 % (3.8-10.2); NEUT % 65.5 % (42.8-82.8); PLATELET COUNT 86 K/MM3 (134-434); RBC 3.41 M/mm3 (4.00-5.60); RDW 19.1 % (11.9-15.9); WHITE BLOOD COUNT 6.1 K/mm3 (4.0-10.0)
[2019-06-26 08:53] LABS: VENOUS PC02 55.9 mmHg (38-52); VENOUS PH 7.37 (7.31-7.41)
[2019-06-26 08:55] LABS: EPI CELLS 2.7 /HPF (0-5/HPF); HYALINE CASTS 49 /lpf (0-8); PH,URINE 6.5 (5.0-8.0); URINE APPEARANCE TURBID; URINE BACTERIA 63.5 /hpf (NEGATIVE); URINE BILIRUBIN NEGATIVE (NEGATIVE); URINE COLOR YELLOW; URINE GLUCOSE (UA) 1+ (NEGATIVE); URINE KETONE NEGATIVE (NEGATIVE); URINE LEUK ESTERASE 3+ (NEGATIVE); URINE NITRITE NEGATIVE (NEGATIVE); URINE PROTEIN 1+ (NEGATIVE); URINE WBC 5323 /hpf (0-5)
[2019-06-26 08:57] LABS: VENOUS PO2 < 49 mmHg (28-48)
[2019-06-26 09:15] LABS: ALBUMIN 2.9 g/dl (3.4-5.0); BILIRUBIN,TOTAL 7.1 mg/dL (0.2-1); BLOOD UREA NITROGEN 42.1 mg/dL (7-18); CALCIUM 9.1 mg/dL (8.5-10.1); CREATININE 1.9 mg/dL (0.55-1.3); POTASSIUM 3.9 mmol/L (3.5-5.1); TOT PROT 6.7 g/dl (6.4-8.2)
[2019-06-26 09:24] LABS: INR 1.39 (0.83-1.09); PROTHROMBIN TIME (PATIENT) 16.5 SEC (9.7-13.0)
[2019-06-26] MEDS ORDERED: SODIUM CHLORIDE 0.9% 500 ML INFUS.BAG IV ONE (09:55)
[2019-06-26] MEDS ORDERED: ALBUTEROL SO4 0.083% IH SOL 2.5 MG/3 ML VIAL.NEB. NEB PRN (10:10)
[2019-06-26] MEDS ORDERED: MELATONIN 5 MG TABLETS PO PRN (10:10)
--- NOTE | 2019-06-26 10:10 | HP ---
Admitting History and Physical - Past Medical History Cardiovascular: Yes: CHF, HTN. No: AFIB, CAD Pulmonary: Yes: COPD Gastrointestinal: Yes: Esophageal Varices, Other (Hepatic encephalopathy) Hepatobiliary: Yes: Cirrhosis (Alcohol induced) Renal/: Yes: BPH Infectious Disease: Yes: Other (pneumonia) Endocrine: Yes: Diabetes Mellitus - Past Surgical History Past Surgical History: Yes: Hernia Repair, Upper Endoscopy - Smoking History Smoking history: Never smoked Have you smoked in the past 12 months: Yes Aproximately how many cigarettes per day: 10 If you are a former smoker, when did you quit?: smokes daily - Alcohol/Substance Use Hx Alcohol Use: No History of Substance Use: reports: None, Cocaine (ex intranasal cocaine use) - Social History ADL: Independent 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: son lives 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 History of Recent Travel: No Home Medications - Allergies Allergies/Adverse Reactions: Allergies Allergy/AdvReac Type Severity Reaction Status Date / Time No Known Allergies Allergy Verified 06/26/19 06:52 - Home Medications Home Medications: Ambulatory Orders Tamsulosin HCl [Flomax] 0.4 mg PO DAILY 11/05/18 Ascorbate Calcium [Vitamin C] 500 mg PO DAILY 05/27/19 Dextran 70/Hypromellose/Pf [Artificial Tears Drops] 1 each OP DAILY 05/27/19 Albuterol 0.083% Nebulizer Patricia [Ventolin 0.083% Nebulizer Soln -] 1 amp NEB Q6H PRN amp 06/18/19 Ammonium Lactate Lotion [Lac-Hydrin 12] 1 applic TP BID bottle 06/18/19 Polyvinyl Alcohol [Artificial Tears] 1 drop OU Q12H PRN drops 06/18/19 Furosemide [Lasix -] 100 mg PO BID@0600,1400 tablet 06/24/19 Lactulose (Oral Use) [Cephulac -] 20 gm PO Q6HPO udc 06/24/19 Melatonin 5 mg PO HS PRN tab 06/24/19 Multivit-Minerals [Certavite-Antioxidant Liquid] 15 ml PO DAILY cup 06/24/19 Acetaminophen [Tylenol] 650 mg PO PRN 06/26/19 Insulin Lispro [Humalog] 0 unit SQ DAILY 06/26/19 Nadolol 40 mg PO DAILY 06/26/19 Nitroglycerin 0.4 mg SL DAILY 06/26/19 Rifaximin [Xifaxan] 550 mg PO BID 06/26/19 Spironolactone [Aldactone] 25 mg PO DAILY 06/26/19 Physical Examination Vital Signs: Vital Signs Temperature 99.5 F 06/26/19 07:10 Pulse Rate 113 H 06/26/19 07:10 Respiratory Rate 27 H 06/26/19 07:10 Blood Pressure 122/76 06/26/19 07:10 O2 Sat by Pulse Oximetry (%) 97 06/26/19 07:10 Cardiovascular: Yes: Tachycardia, Pulse Irregular, S1, S2 Respiratory: Yes: Regular, CTA Bilaterally Gastrointestinal: Yes: Normal Bowel Sounds, Soft Labs: CBC, BMP 06/26/19 07:30 06/26/19 07:20 Problem List - Problems (1) Urinary tract infection Assessment/Plan: d/w id--iv abx cultures Code(s): N39.0 - URINARY TRACT INFECTION, SITE NOT SPECIFIED Qualifiers: Urinary tract infection type: site unspecified Hematuria presence: without hematuria Qualified Code(s): N39.0 - Urinary tract infection, site not specified (2) Afib Assessment/Plan: nadolol cardio digx1 Code(s): I48.91 - UNSPECIFIED ATRIAL FIBRILLATION (3) CHF (congestive heart failure) Assessment/Plan: po lasix Code(s): I50.9 - HEART FAILURE, UNSPECIFIED Qualifiers: Heart failure type: unspecified Heart failure chronicity: acute on chronic Qualified Code(s): I50.9 - Heart failure, unspecified (4) COPD (chronic obstructive pulmonary disease) Code(s): J44.9 - CHRONIC OBSTRUCTIVE PULMONARY DISEASE, UNSPECIFIED
[2019-06-26] MEDS ORDERED: DIGOXIN 0.5 MG/2 ML AMPUL IVPUSH ONE (10:13)
--- NOTE | 2019-06-26 11:51 | PN ---
Progress Note (short form) - Note Progress Note: ID CONSULT DICTATED RECURRENT UTI R/O SEPSIS SECONDARY TO UTI LACTIC ACIDOSIS HX CRE CHRONIC LIVER DISEASE AZOTEMIA THROMBOCYTOPENIA PENDING C/S EMPIRIC TYGACIL/ STAT DOSE GENTAMICIN
[2019-06-26] MEDS ORDERED: TIGECYCLINE 100 MG in DEXTROSE 5%-WATER - 100 ML IVPB ONE (11:56)
[2019-06-26] MEDS ORDERED: GENTAMICIN 80 MG PREMIXED IVPB 80 MG/100 ML BAG IVPB ONE (11:57)
[2019-06-26 12:31] LABS: URINE RBC 20-30 /hpf (0-4)
[2019-06-26 12:32] LABS: YEAST NEGATIVE (NEGATIVE)
--- NOTE | 2019-06-26 12:39 | CONS ---
DATE OF CONSULTATION: DATE OF DICTATION: 06/26/2019 INFECTIOUS DISEASE CONSULTATION HISTORY OF PRESENT ILLNESS: The patient is a 74-year-old male with a history of chronic liver disease, history of CRE bacteremia in 2015, now evaluated for possible sepsis. The patient was admitted to the hospital from a nursing facility after he was noted to have worsening thrombocytopenia. He is awake, but he is confused. He is unable to offer any additional details. According to the notes, he has had several recent hospitalizations for hepatic encephalopathy secondary to his chronic liver disease. He was noted on evaluation to have pyuria. He is unable to offer any additional complaints. PAST MEDICAL HISTORY: Positive for chronic liver disease, chronic kidney disease, congestive heart failure, history of esophageal varices, insulin dependent diabetes mellitus. PAST SURGICAL HISTORY: Status post hernia repair. ALLERGIES: No known allergies. MEDICATION: Include albuterol, digoxin, Lasix, lactulose, melatonin, Coreg, Xifaxan, spironolactone, Flomax. SOCIAL HISTORY: Lives in a nursing facility. Nonsmoker. Nondrinker. SYSTEMS REVIEW: Neurologic: Positive for history of hepatic encephalopathy. Cardiac: Negative for chest pain or palpitations. Respiratory: Negative for cough or sputum production. Gastrointestinal: Positive for chronic liver disease. Genitourinary: Positive for chronic kidney failure. LABORATORY DATA: White count 6.1, hematocrit 34.9, platelets 86, creatinine 1.9, lactic acid 2.5. Urinalysis 5223 white cells. Cultures are pending. PHYSICAL EXAMINATION: General: On exam, he is awake but not conversant. Vital signs: Temperature 97.6, blood pressure 136/71, pulse 19 regular, respirations 22 per minute. HEENT: Sclerae icteric. Patient is jaundiced. Cardiovascular: Heart sounds S1, S2. Lungs: Clear. Abdomen: Obese. Soft, nontender. Extremities: Positive for edema. IMPRESSION: 1. Recurrent urinary tract infection. 2. Rule out sepsis secondary to urinary tract infection. 3. Lactic acidosis. 4. History of carbapenem-resistant Enterobacteriaceae. 5. Chronic liver disease. 6. Azotemia. 7. Thrombocytopenia. Pending cultures. Empiric antibiotic coverage with Tikacillin, stat dose gentamicin. Await culture results. Supportive measures. Will follow. Thank you for the kind referral. MATTHIAS HERNANDEZ M.D. [id number]
--- NOTE | 2019-06-26 12:39 | CON.CARD ---
Consult Consult Specialty:: Cardiology Referred by:: Dr. Vargas Reason for Consultation:: Atrial fibrillation and CHF - History of Present Illness Chief Complaint: Low platelets. History of Present Illness: 74 year-old man with a PMHx of HTN, DM, systolic CHF with LVEF 35-40% from echocardiogram on 05/29/19, atrial fibrillation and flutter, liver cirrhosis, esophageal varices (sp banding), COPD, CKD brought to ED from [facility] with a low platelet count. He was recently seen in our hospital on multiple occasions for elevated ammonia levels, respiratory failure, CKD, and altered mental status. The patient has been treated with lactulose and rifaximin on multiple occasions. The patient has been chronic ill without acute complaints. He was found to have thrombocytopenia, lactic acidosis, azotemia. Seen by ID for UTI and sepsis. CXR reveal left base infiltrate vs atelactasis. ECG pending. Echo 05/29/19: Normal LV size with moderate to severe global hypokinesis. LVEF 35-40%. Mild RV dilatation and hypokinesis. Mild LA and RA dilatation. Mild to moderate . Mild MR. Moderate to severe TR. Mild pulmonary hypertension. - History Source History Provided By: Patient, Medical Record - Past Medical History Cardio/Vascular: Yes: CHF, HTN. No: AFIB, CAD Pulmonary: Yes: COPD Gastrointestinal: Yes: Esophageal Varices, Other (Hepatic encephalopathy) Hepatobiliary: Yes: Cirrhosis (Alcohol induced) Renal/: Yes: BPH Infectious Disease: Yes: Other (pneumonia) Endocrine: Yes: Diabetes Mellitus - Past Surgical History Past Surgical History: Yes: Hernia Repair, Upper Endoscopy - Alcohol/Substance Use Hx Alcohol Use: No History of Substance Use: reports: None, Cocaine (ex intranasal cocaine use) - Smoking History Smoking history: Never smoked Have you smoked in the past 12 months: Yes Aproximately how many cigarettes per day: 10 If you are a former smoker, when did you quit?: smokes daily - Social History Usual Living Arrangement: Alone ADL: Independent Occupation: son lives upstairs History of Recent Travel: No Home Medications - Allergies Allergies/Adverse Reactions: Allergies Allergy/AdvReac Type Severity Reaction Status Date / Time No Known Allergies Allergy Verified 06/26/19 06:52 - Home Medications Home Medications: Ambulatory Orders Tamsulosin HCl [Flomax] 0.4 mg PO DAILY 11/05/18 Ascorbate Calcium [Vitamin C] 500 mg PO DAILY 05/27/19 Dextran 70/Hypromellose/Pf [Artificial Tears Drops] 1 each OP DAILY 05/27/19 Albuterol 0.083% Nebulizer Patricia [Ventolin 0.083% Nebulizer Soln -] 1 amp NEB Q6H PRN amp 06/18/19 Ammonium Lactate Lotion [Lac-Hydrin 12] 1 applic TP BID bottle 06/18/19 Polyvinyl Alcohol [Artificial Tears] 1 drop OU Q12H PRN drops 06/18/19 Furosemide [Lasix -] 100 mg PO BID@0600,1400 tablet 06/24/19 Lactulose (Oral Use) [Cephulac -] 20 gm PO Q6HPO udc 06/24/19 Melatonin 5 mg PO HS PRN tab 06/24/19 Multivit-Minerals [Certavite-Antioxidant Liquid] 15 ml PO DAILY cup 06/24/19 Acetaminophen [Tylenol] 650 mg PO PRN 06/26/19 Insulin Lispro [Humalog] 0 unit SQ DAILY 06/26/19 Nadolol 40 mg PO DAILY 06/26/19 Nitroglycerin 0.4 mg SL DAILY 06/26/19 Rifaximin [Xifaxan] 550 mg PO BID 06/26/19 Spironolactone [Aldactone] 25 mg PO DAILY 06/26/19 Vital Signs: Vital Signs Temperature 97.6 F 06/26/19 10:54 Pulse Rate 109 H 06/26/19 10:54 Respiratory Rate 22 H 06/26/19 10:54 Blood Pressure 136/71 06/26/19 10:54 O2 Sat by Pulse Oximetry (%) 97 06/26/19 07:10 General: Well developed. Severe chronic ill. No acute distress. Head: Normocephalic. Atraumatic, Eyes: PERRLA, EOMI. Sclerae Icteric. Pale. Heart: Normal S1, S2: Irregular rhythm and mild tachycardia. II/ LORIN. Lungs: Symmetrical coarse breath sound. Abdomen: Distended. Soft. Bowel sound positive. Extremities: Large and multiple ecchymoses. Anasarca. - Other Data Labs, Other Data: CBC, BMP 06/26/19 07:30 06/26/19 07:20 INR, PTT INR 1.39 (0.83-1.09) H 06/26/19 07:30 Assessment/Plan 74 year-old man with a PMHx of HTN, DM, systolic CHF with LVEF 35-40% from echocardiogram on 05/29/19, atrial fibrillation and flutter, liver cirrhosis, esophageal varices (sp banding), COPD, CKD brought to ED from [facility] with a low platelet count. The patient has been chronic ill without acute complaints. He was found to have thrombocytopenia, lactic acidosis, azotemia. Seen by ID for UTI and sepsis. CXR reveal left base infiltrate vs atelactasis. ECG pending. Echo 05/29/19: Normal LV size with moderate to severe global hypokinesis. LVEF 35-40%. Mild RV dilatation and hypokinesis. Mild LA and RA dilatation. Mild to moderate . Mild MR. Moderate to severe TR. Mild pulmonary hypertension. 1) Persistent atrial fibrillation with mild VR. -May increase Nadolol to 80 mg daily. -Digoxin 0.125 mg every other day. -Not candidate for AC. 2) Systolic CHF with fluid overload. Restart furosemide and monitor weight, Is&Os, lytes. Continue Aldactone. Please do not hesitate to call us for reconsult at any time if any further questions or additional issue arises regarding this patient.
--- NOTE | 2019-06-26 13:06 | CONSULT ---
Consult Consult Specialty:: Nephrology ( [facility]/ [facility]) Referred by:: Dr. 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 Has Ch. Atrial fibrillation and flutter, liver cirrhosis, esophageal varices ( sp banding), COPD Brought i with low platelet count. The patient has Chronic hepatic encephalopathy. He was recently seen in our hospital on multiple occasions for elevated ammonia levels, respiratory failure , CKD, and altered mental status. The patient has been treated with lactulose and rifaximin. The patient being evaluated for possible urosepsis also.O IV Antibiotics. - History Source History Provided By: Family Member - Past Medical History Cardio/Vascular: Yes: CHF, HTN. No: AFIB, CAD Pulmonary: Yes: COPD Gastrointestinal: Yes: Esophageal Varices, Other (Hepatic encephalopathy) Hepatobiliary: Yes: Cirrhosis (Alcohol induced) Renal/: Yes: BPH Infectious Disease: Yes: Other (pneumonia) Endocrine: Yes: Diabetes Mellitus - Past Surgical History Past Surgical History: Yes: Hernia Repair, Upper Endoscopy - Alcohol/Substance Use Hx Alcohol Use: No History of Substance Use: reports: None, Cocaine (ex intranasal cocaine use) - Smoking History Smoking history: Never smoked Have you smoked in the past 12 months: Yes Aproximately how many cigarettes per day: 10 If you are a former smoker, when did you quit?: smokes daily - Social History Usual Living Arrangement: Alone ADL: Independent Occupation: son lives upstairs History of Recent Travel: No Home Medications - Allergies Allergies/Adverse Reactions: Allergies Allergy/AdvReac Type Severity Reaction Status Date / Time No Known Allergies Allergy Verified 06/26/19 06:52 - Home Medications Home Medications: Ambulatory Orders Tamsulosin HCl [Flomax] 0.4 mg PO DAILY 11/05/18 Ascorbate Calcium [Vitamin C] 500 mg PO DAILY 05/27/19 Dextran 70/Hypromellose/Pf [Artificial Tears Drops] 1 each OP DAILY 05/27/19 Albuterol 0.083% Nebulizer Patricia [Ventolin 0.083% Nebulizer Soln -] 1 amp NEB Q6H PRN amp 06/18/19 Ammonium Lactate Lotion [Lac-Hydrin 12] 1 applic TP BID bottle 06/18/19 Polyvinyl Alcohol [Artificial Tears] 1 drop OU Q12H PRN drops 06/18/19 Furosemide [Lasix -] 100 mg PO BID@0600,1400 tablet 06/24/19 Lactulose (Oral Use) [Cephulac -] 20 gm PO Q6HPO udc 06/24/19 Melatonin 5 mg PO HS PRN tab 06/24/19 Multivit-Minerals [Certavite-Antioxidant Liquid] 15 ml PO DAILY cup 06/24/19 Acetaminophen [Tylenol] 650 mg PO PRN 06/26/19 Insulin Lispro [Humalog] 0 unit SQ DAILY 06/26/19 Nadolol 40 mg PO DAILY 06/26/19 Nitroglycerin 0.4 mg SL DAILY 06/26/19 Rifaximin [Xifaxan] 550 mg PO BID 06/26/19 Spironolactone [Aldactone] 25 mg PO DAILY 06/26/19 Family Medical History Family History: Denies Review of Systems Unable to obtain ROS, reason: History obtained fro fami - Review of Systems Constitutional: reports: Lethargy HENT: denies: Difficult Swallowing Cardiovascular: reports: Edema, Shortness of Breath. denies: Chest Pain Gastrointestinal: reports: Bloating Musculoskeletal: reports: Back Pain Neurological: reports: Confusion Physical Exam Vital Signs: Vital Signs Temperature 97.6 F 06/26/19 10:54 Pulse Rate 109 H 06/26/19 10:54 Respiratory Rate 22 H 06/26/19 10:54 Blood Pressure 136/71 06/26/19 10:54 O2 Sat by Pulse Oximetry (%) 97 06/26/19 07:10 Constitutional: Yes: Ashen, Poor Hygeine, Other Eyes: Yes: Other (icteric) HENT: Yes: Normocephalic Neck: Yes: Trachea Midline Cardiovascular: Yes: Pulse Irregular, S1, S2 Respiratory: Yes: Diminished, Dullness, Rhonchi Gastrointestinal: Yes: Soft, Ascites Renal/: Yes: Steward Present. No: Bladder Distention, CVA Tenderness - Left, CVA Tenderness - Right Edema: Yes Edema: LLE: 2+, RLE: 2+ Neurological: Yes: Asterixis, Ataxia, Tremors, Weakness. No: Alert, Oriented Psychiatric: No: Alert, Oriented Labs: CBC, BMP 06/26/19 07:30 06/26/19 07:20 Problem List - Problems (1) SOPHIE (acute kidney injury) Code(s): N17.9 - ACUTE KIDNEY FAILURE, UNSPECIFIED (2) Acquired thrombocytopenia Code(s): D69.59 - OTHER SECONDARY THROMBOCYTOPENIA (3) Acute on chronic respiratory failure with hypoxia and hypercapnia Code(s): J96.21 - ACUTE AND CHRONIC RESPIRATORY FAILURE WITH HYPOXIA; J96.22 - ACUTE AND CHRONIC RESPIRATORY FAILURE WITH HYPERCAPNIA (4) Acute renal failure (ARF) Code(s): N17.9 - ACUTE KIDNEY FAILURE, UNSPECIFIED (5) Afib Code(s): I48.91 - UNSPECIFIED ATRIAL FIBRILLATION (6) Alcoholic cirrhosis of liver without ascites Code(s): K70.30 - ALCOHOLIC CIRRHOSIS OF LIVER WITHOUT ASCITES (7) Anemia Code(s): D64.9 - ANEMIA, UNSPECIFIED (8) BPH (benign prostatic hypertrophy) Code(s): N40.0 - BENIGN PROSTATIC HYPERPLASIA WITHOUT LOWER URINRY TRACT SYMP (9) CHF (congestive heart failure) Code(s): I50.9 - HEART FAILURE, UNSPECIFIED Qualifiers: Heart failure type: unspecified Heart failure chronicity: acute on chronic Qualified Code(s): I50.9 - Heart failure, unspecified (10) Cirrhosis of liver Code(s): K74.60 - UNSPECIFIED CIRRHOSIS OF LIVER (11) Hepatic encephalopathy Code(s): K72.90 - HEPATIC FAILURE, UNSPECIFIED WITHOUT COMA (12) Lactic acid acidosis Code(s): E87.2 - ACIDOSIS (13) Sepsis Code(s): A41.9 - SEPSIS, UNSPECIFIED ORGANISM (14) UTI (lower urinary tract infection) Code(s): N39.0 - URINARY TRACT INFECTION, SITE NOT SPECIFIED Assessment/Plan 74 year-old man with a PMHx of HTN, DM, systolic CHF, CKD, 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 Has Ch. Atrial fibrillation and flutter, liver cirrhosis, esophageal varices ( sp banding), COPD Brought in with low platelet count. The patient has Chronic hepatic Encephalopathy. He was recently seen in our hospital on multiple occasions for elevated ammonia levels, respiratory failure , CKD, and altered mental status. The patient has been treated with lactulose and rifaximin. The patient being evaluated for possible urosepsis also.On IV Antibiotics. Chronic Kidney disease... Stable Azotemia. Most likely the patiet has hemo- dynamic renal failure with markedly reduced effective renal perfusion. Electrolytes in acceptable range. Low platelets.most likely 2/2 hypersplenism from Chronic cirrhosis, with additional contribution from sepsis. Lactic acidosis from low flow states, and hypoperfusio. Urospesis...on IV Abx per ID Will maitain euvolemia Monitor the renal functions closely. Summer Cool MD
[2019-06-26] MEDS: FUROSEMIDE 40 MG TABLET (FP) PO SCH (15:10)
[2019-06-26] MEDS: LACTULOSE 20 GM/30 ML UDC (FOR ORAL USE ONLY) PO SCH ×2 (15:12→18:08)
[2019-06-26] MEDS: INSULIN SLIDING SCALE (NOVOLOG) 1 VIAL SQ SCH ×2 (18:04→22:46)
[2019-06-26] MEDS ORDERED: Insulin (LOG) Aspart 100 UNITS/ML VIAL SQ STA (19:38)
[2019-06-26] MEDS ORDERED: INSULIN (NOVOLOG) ASPART 100 UNITS/ML 10ML VIAL ONE (20:39)
[2019-06-26] MEDS: RIFAXIMIN 550 MG TABLET (UD) PO SCH (22:48)
[2019-06-27] MEDS: AMMONIUM LACTATE 12% LOTION 225 GM BOTTLE TP SCH ×3 (00:11→21:38)
[2019-06-27] MEDS: LACTULOSE 20 GM/30 ML UDC (FOR ORAL USE ONLY) PO SCH ×4 (00:11→17:26)
[2019-06-27] MEDS: FUROSEMIDE 40 MG TABLET (FP) PO SCH ×2 (06:41→13:04)
[2019-06-27] MEDS: INSULIN SLIDING SCALE (NOVOLOG) 1 VIAL SQ SCH ×4 (06:43→21:33)
[2019-06-27 08:16] LABS: BASO % 0.9 % (0-2.0); EOS % 6.2 % (0-4.5); HEMATOCRIT 33.7 % (35.4-49); HEMOGLOBIN 11.6 GM/dL (11.7-16.9); MCH 34.5 pg (25.7-33.7); MCHC 34.5 g/dl (32.0-35.9); MEAN CELL VOLUME 99.7 fl (80-96); MEAN PLT VOLUME 8.6 fl (7.5-11.1); MONO % 10.1 % (3.8-10.2); NEUT % 63.8 % (42.8-82.8); PLATELET COUNT 82 K/MM3 (134-434); RBC 3.38 M/mm3 (4.00-5.60); RDW 19.1 % (11.9-15.9); WHITE BLOOD COUNT 6.8 K/mm3 (4.0-10.0)
[2019-06-27 08:45] LABS: ALBUMIN 2.8 g/dl (3.4-5.0); BILIRUBIN,TOTAL 7.5 mg/dL (0.2-1); BLOOD UREA NITROGEN 43.8 mg/dL (7-18); CALCIUM 8.6 mg/dL (8.5-10.1); CREATININE 1.8 mg/dL (0.55-1.3); PHOSPHOROUS 2.6 mg/dL (2.5-4.9); TOT PROT 6.2 g/dl (6.4-8.2)
[2019-06-27] MEDS ORDERED: VANCOMYCIN 1 GRAM (PRE-DOCKED) 1,000 MG/250 ML BAG IVPB ONE (09:00)
[2019-06-27] MEDS: MULTIVIT-MINERALS ORAL LIQUID PO SCH (09:52)
[2019-06-27] MEDS: SPIRONOLACTONE 25 MG TABLET (FP) PO SCH (09:53)
[2019-06-27] MEDS: RIFAXIMIN 550 MG TABLET (UD) PO SCH ×2 (09:53→21:34)
[2019-06-27] MEDS: TAMSULOSIN HCL 0.4 MG CAP PO SCH (09:53)
[2019-06-27] MEDS ORDERED: PATIENT'S OWN MEDICATION (NON-FORMULARY) (Dextran 70/Hypromellose/Pf [Artificial Tears Dro OP SCH (10:00)
[2019-06-27] MEDS ORDERED: NADOLOL 40 MG TABLET (FP) PO SCH ×3 (10:00→14:45)
--- NOTE | 2019-06-27 13:20 | PN ---
Progress Note (short form) - Note Progress Note: Renal follow up for SOPHIE/CKD Seen and examined at the bedside groggy but arouseable making urine not able to obtain HPI family at th e bedside Vital Signs Temperature 97.4 F L 06/27/19 06:14 Pulse Rate 110 H 06/27/19 06:14 Respiratory Rate 20 06/27/19 06:14 Blood Pressure 132/62 06/27/19 06:14 O2 Sat by Pulse Oximetry (%) 100 06/26/19 21:00 Intake & Output 06/24/19 06/25/19 06/26/19 06/27/19 23:59 23:59 23:59 23:59 Intake Total 525 140 Output Total 1400 300 Balance -875 -160 Weight 104.383 kg NAD awake and alert neck supple, no JVD RRR Dec BS at lung bases soft, NT/ND,some ascities CBC, BMP 06/27/19 07:42 06/27/19 07:42 Current Medications Acetaminophen (Tylenol -) 650 mg PO PRN [facility] Albuterol Sulfate (Ventolin 0.083% Nebulizer Soln -) 1 amp NEB Q6H PRN PRN Reason: SHORT OF BREATH/WHEEZING Furosemide (Lasix -) 100 mg PO BID@0600,1400 [facility] Last Admin: 06/27/19 13:04 Dose: 100 mg Insulin Aspart (Novolog Vial Sliding Scale -) 1 vial SQ ACHS [facility]; Protocol Last Admin: 06/27/19 12:39 Dose: 8 units Lactic Acid (Lac-Hydrin 12) 1 applic TP BID [facility] Last Admin: 06/27/19 09:54 Dose: 1 applic Lactulose (Cephulac (Oral Use)) 20 gm PO Q6HPO [facility] Last Admin: 06/27/19 13:06 Dose: 20 gm Melatonin (Melatonin) 5 mg PO HS PRN PRN Reason: INSOMNIA Multivitamins/Minerals (Certavite-Antioxidant Liquid) 15 ml PO DAILY [facility] Last Admin: 06/27/19 09:52 Dose: 1 cap Nadolol (Corgard -) 40 mg PO DAILY [facility] Last Admin: 06/27/19 09:53 Dose: 40 mg Non-Formulary Medication (Dextran 70/Hypromellose/Pf [Artificial Tears Drops]) 1 each OP DAILY [facility] Rifaximin (Xifaxan -) 550 mg PO BID [facility] Last Admin: 06/27/19 09:53 Dose: 550 mg Spironolactone (Aldactone -) 25 mg PO DAILY [facility] Last Admin: 06/27/19 09:53 Dose: 25 mg Tamsulosin HCl (Flomax -) 0.4 mg PO DAILY@0830 [facility] Last Admin: 06/27/19 09:53 Dose: 0.4 mg 74 year old gentleman with alcoholic cirrhosis, CHF, SOPHIE/CKD, DM who presented from [place] with low platelet counts and noted to have AMS and elevated Cr. 1. SOPHIE, now possibly CKD 2. Thrombocytopenia in setting of liver disease 3. Hepatic encephalopathy 4. Alcoholic cirrhosis Renal function stable as compared to previous admission Continue Lasix 100mg BID and Aldactone daily Trend renal function and electrolytes continue lactulose Trend platelet counts continue supportive care Thank you Ang Sanchez DO
--- NOTE | 2019-06-27 14:24 | EKG ---
Test Reason : Blood Pressure : / mmHG Vent. Rate : 105 BPM Atrial Rate : 098 BPM P-R Int : 000 ms QRS Dur : 142 ms QT Int : 314 ms P-R-T Axes : 000 131 -27 degrees QTc Int : 415 ms POOR DATA QUALITY, INTERPRETATION MAY BE ADVERSELY AFFECTED ATRIAL FIBRILLATION WITH RAPID VENTRICULAR RESPONSE RIGHT AXIS DEVIATION NON-SPECIFIC INTRA-VENTRICULAR CONDUCTION BLOCK ABNORMAL QRS-T ANGLE, CONSIDER PRIMARY T WAVE ABNORMALITY ABNORMAL ECG WHEN COMPARED WITH ECG OF 10-JUN-2019 09:17, ATRIAL FIBRILLATION HAS REPLACED WIDE QRS RHYTHM Confirmed by MATTHIAS RUIZ MD ([id number]) on 06/27/2019 2:24:10 PM Referred By: Confirmed By:MATTHIAS RUIZ MD
--- NOTE | 2019-06-27 14:26 | PN ---
Progress Note, Physician Chief Complaint: patient seen and examined awake in bed - Current Medication List Current Medications: Active Medications Acetaminophen (Tylenol -) 650 mg PO PRN [facility] Albuterol Sulfate (Ventolin 0.083% Nebulizer Soln -) 1 amp NEB Q6H PRN PRN Reason: SHORT OF BREATH/WHEEZING Furosemide (Lasix -) 100 mg PO BID@0600,1400 [facility] Last Admin: 06/27/19 13:04 Dose: 100 mg Insulin Aspart (Novolog Vial Sliding Scale -) 1 vial SQ ACHS [facility]; Protocol Last Admin: 06/27/19 12:39 Dose: 8 units Lactic Acid (Lac-Hydrin 12) 1 applic TP BID [facility] Last Admin: 06/27/19 09:54 Dose: 1 applic Lactulose (Cephulac (Oral Use)) 20 gm PO Q6HPO [facility] Last Admin: 06/27/19 13:06 Dose: 20 gm Melatonin (Melatonin) 5 mg PO HS PRN PRN Reason: INSOMNIA Multivitamins/Minerals (Certavite-Antioxidant Liquid) 15 ml PO DAILY [facility] Last Admin: 06/27/19 09:52 Dose: 1 cap Nadolol (Corgard -) 40 mg PO DAILY [facility] Last Admin: 06/27/19 09:53 Dose: 40 mg Non-Formulary Medication (Dextran 70/Hypromellose/Pf [Artificial Tears Drops]) 1 each OP DAILY [facility] Rifaximin (Xifaxan -) 550 mg PO BID [facility] Last Admin: 06/27/19 09:53 Dose: 550 mg Spironolactone (Aldactone -) 25 mg PO DAILY [facility] Last Admin: 06/27/19 09:53 Dose: 25 mg Tamsulosin HCl (Flomax -) 0.4 mg PO DAILY@0830 [facility] Last Admin: 06/27/19 09:53 Dose: 0.4 mg - Objective Vital Signs: Vital Signs Temperature 97.4 F L 06/27/19 06:14 Pulse Rate 110 H 06/27/19 06:14 Respiratory Rate 20 06/27/19 06:14 Blood Pressure 132/62 06/27/19 06:14 O2 Sat by Pulse Oximetry (%) 100 06/26/19 21:00 Constitutional: Yes: Calm Eyes: Yes: Sclera Icterus Cardiovascular: Yes: Regular Rate and Rhythm, S1, S2 Respiratory: Yes: Diminished Gastrointestinal: Yes: Normal Bowel Sounds, Soft Edema: Yes Labs: CBC, BMP 06/27/19 07:42 06/27/19 07:42 INR, PTT INR 1.39 (0.83-1.09) H 06/26/19 07:30 Problem List - Problems (1) Urinary tract infection Assessment/Plan: iv abx ID on board Microbiology 06/26/19 07:30 Urine - Urine - Catheterized Urine Culture - Preliminary Group D Strep Or Entero Coccus 06/26/19 07:30 Blood - Peripheral Venous Blood Culture - Preliminary NO GROWTH OBTAINED AFTER 24 HOURS, INCUBATION TO CONTINUE FOR 4 DAYS. 06/26/19 07:15 Blood - Peripheral Venous Blood Culture - Preliminary Pending Organism Code(s): N39.0 - URINARY TRACT INFECTION, SITE NOT SPECIFIED Qualifiers: Urinary tract infection type: site unspecified Hematuria presence: without hematuria Qualified Code(s): N39.0 - Urinary tract infection, site not specified (2) Acquired thrombocytopenia Assessment/Plan: monitor platelets currently in 80K range Code(s): D69.59 - OTHER SECONDARY THROMBOCYTOPENIA (3) Positive blood culture Assessment/Plan: Microbiology 06/26/19 07:15 Blood - Peripheral Venous Blood Culture - Preliminary Pending Organism iv vancomcyin Code(s): R78.81 - BACTEREMIA (4) Cirrhosis of liver Assessment/Plan: rifamixin lactulose nadolol aldactone multivitamins pills and iv Code(s): K74.60 - UNSPECIFIED CIRRHOSIS OF LIVER (5) SOPHIE (acute kidney injury) Assessment/Plan: continue to monitor renal function lasix bid with aldactone Code(s): N17.9 - ACUTE KIDNEY FAILURE, UNSPECIFIED
[2019-06-27] MEDS ORDERED: MULTIVIT INJ. ADULT COMBO WITH VIT K 1 COMBO 10 ML VIAL IV SCH (14:30)
[2019-06-27] MEDS ORDERED: DIGOXIN 0.125 MG TABLET (FP) PO SCH (14:45)
[2019-06-27] MEDS ORDERED: NADOLOL 40 MG TABLET (FP) PO ONE (14:45)
[2019-06-27 14:48] LABS: BASO % 0.8 % (0-2.0); EOS % 5.4 % (0-4.5); HEMATOCRIT 32.6 % (35.4-49); HEMOGLOBIN 11.1 GM/dL (11.7-16.9); LYMPH % 21.1 % (8-40); MCH 34.1 pg (25.7-33.7); MCHC 34.1 g/dl (32.0-35.9); MEAN CELL VOLUME 100.2 fl (80-96); MEAN PLT VOLUME 8.5 fl (7.5-11.1); MONO % 9.1 % (3.8-10.2); NEUT % 63.6 % (42.8-82.8); PLATELET COUNT 74 K/MM3 (134-434); RBC 3.25 M/mm3 (4.00-5.60); RDW 19.6 % (11.9-15.9); WHITE BLOOD COUNT 6.4 K/mm3 (4.0-10.0)
--- NOTE | 2019-06-27 20:00 | PN ---
Progress Note, Physician History of Present Illness: AWAKE BUT CONFUSED NO COMPLAINTS NO ADVERSE RXN TO ANTIBIOTICS BC + GPCCL - Current Medication List Current Medications: Active Medications Acetaminophen (Tylenol -) 650 mg PO PRN [facility] Albuterol Sulfate (Ventolin 0.083% Nebulizer Soln -) 1 amp NEB Q6H PRN PRN Reason: SHORT OF BREATH/WHEEZING Digoxin (Lanoxin -) 0.125 mg PO Q48H [facility] Furosemide (Lasix -) 100 mg PO BID@0600,1400 [facility] Last Admin: 06/27/19 13:04 Dose: 100 mg Tigecycline 50 mg/ Dextrose 100 mls @ 100 mls/hr IVPB BID [facility]; Protocol Insulin Aspart (Novolog Vial Sliding Scale -) 1 vial SQ ACHS [facility]; Protocol Last Admin: 06/27/19 17:26 Dose: 6 units Lactic Acid (Lac-Hydrin 12) 1 applic TP BID [facility] Last Admin: 06/27/19 09:54 Dose: 1 applic Lactulose (Cephulac (Oral Use)) 20 gm PO Q6HPO [facility] Last Admin: 06/27/19 17:26 Dose: 20 gm Melatonin (Melatonin) 5 mg PO HS PRN PRN Reason: INSOMNIA Multivitamins/Minerals (Certavite-Antioxidant Liquid) 15 ml PO DAILY [facility] Last Admin: 06/27/19 09:52 Dose: 1 cap Multivitamins/Minerals (Infuvite Adult -) 10 ml IV DAILY [facility] Nadolol (Corgard -) 80 mg PO DAILY@0600 [facility] Rifaximin (Xifaxan -) 550 mg PO BID [facility] Last Admin: 06/27/19 09:53 Dose: 550 mg Spironolactone (Aldactone -) 25 mg PO DAILY [facility] Last Admin: 06/27/19 09:53 Dose: 25 mg Tamsulosin HCl (Flomax -) 0.4 mg PO DAILY@0830 [facility] Last Admin: 06/27/19 09:53 Dose: 0.4 mg - Objective Vital Signs: Vital Signs Temperature 97.7 F 06/27/19 18:00 Pulse Rate 108 H 06/27/19 18:00 Respiratory Rate 20 06/27/19 18:00 Blood Pressure 120/63 06/27/19 18:00 O2 Sat by Pulse Oximetry (%) 100 06/27/19 09:00 Constitutional: Yes: No Distress Eyes: Yes: Sclera Icterus Cardiovascular: Yes: Regular Rate and Rhythm, S1, S2 Respiratory: Yes: CTA Bilaterally Gastrointestinal: Yes: Normal Bowel Sounds, Soft, Abdomen, Obese Labs: CBC, BMP 06/27/19 14:06 06/27/19 07:42 INR, PTT INR 1.39 (0.83-1.09) H 06/26/19 07:30 Assessment/Plan + BC GPCCL R/O STAPH SEPSIS HX RECURRENT UTI LACTIC ACIDOSIS HX CRE CHRONIC LIVER DISEASE CKD AWAIT BC VANCOMYCIN X 1 GIVEN CONTINUE TYGACIL
[2019-06-27] MEDS ORDERED: TIGECYCLINE 50 MG in DEXTROSE 5%-WATER - 100 ML IVPB SCH (22:00)
[2019-06-27] MEDS ORDERED: TIGECYCLINE 50 MG in DEXTROSE 5%-WATER 100 ML IVPB SCH (23:01)
[2019-06-27] MEDS: TIGECYCLINE 50 MG in DEXTROSE 5%-WATER 100 ML IVPB SCH (23:59)
[2019-06-28] MEDS: LACTULOSE 20 GM/30 ML UDC (FOR ORAL USE ONLY) PO SCH ×4 (00:33→18:57)
[2019-06-28] MEDS: FUROSEMIDE 40 MG TABLET (FP) PO SCH ×3 (06:57→17:54)
[2019-06-28] MEDS: NADOLOL 40 MG TABLET (FP) PO SCH (06:58)
[2019-06-28] MEDS: DIGOXIN 0.125 MG TABLET (FP) PO SCH (06:58)
[2019-06-28] MEDS: INSULIN SLIDING SCALE (NOVOLOG) 1 VIAL SQ SCH ×4 (07:04→22:08)
[2019-06-28] MEDS: TAMSULOSIN HCL 0.4 MG CAP PO SCH (08:55)
[2019-06-28 10:20] LABS: ALBUMIN 2.5 g/dl (3.4-5.0); BILIRUBIN,TOTAL 7.5 mg/dL (0.2-1); BLOOD UREA NITROGEN 46.8 mg/dL (7-18); CALCIUM 8.8 mg/dL (8.5-10.1); CREATININE 1.8 mg/dL (0.55-1.3); PHOSPHOROUS 2.4 mg/dL (2.5-4.9); POTASSIUM 3.9 mmol/L (3.5-5.1)
[2019-06-28] MEDS ORDERED: PT OWN MED DRAWER 7, Y5N ONE ×2 (10:43→18:37)
[2019-06-28] MEDS: RIFAXIMIN 550 MG TABLET (UD) PO SCH ×2 (10:47→22:08)
[2019-06-28] MEDS: MULTIVIT-MINERALS ORAL LIQUID PO SCH (10:47)
[2019-06-28] MEDS: SPIRONOLACTONE 25 MG TABLET (FP) PO SCH (10:47)
[2019-06-28] MEDS: TIGECYCLINE 50 MG in DEXTROSE 5%-WATER 100 ML IVPB SCH (10:47)
--- NOTE | 2019-06-28 10:57 | PN ---
Progress Note, Physician - Current Medication List Current Medications: Active Medications Acetaminophen (Tylenol -) 650 mg PO PRN [facility] Albuterol Sulfate (Ventolin 0.083% Nebulizer Soln -) 1 amp NEB Q6H PRN PRN Reason: SHORT OF BREATH/WHEEZING Digoxin (Lanoxin -) 0.125 mg PO Q48H [facility] Last Admin: 06/28/19 06:58 Dose: 0.125 mg Furosemide (Lasix -) 100 mg PO BID@0600,1400 [facility] Last Admin: 06/28/19 06:57 Dose: 100 mg Tigecycline 50 mg/ Dextrose 100 mls @ 100 mls/hr IVPB BID [facility]; Protocol Last Admin: 06/28/19 10:47 Dose: 100 mls/hr Insulin Aspart (Novolog Vial Sliding Scale -) 1 vial SQ ACHS [facility]; Protocol Last Admin: 06/28/19 07:04 Dose: 6 units Lactic Acid (Lac-Hydrin 12) 1 applic TP BID [facility] Last Admin: 06/27/19 21:38 Dose: 1 applic Lactulose (Cephulac (Oral Use)) 20 gm PO Q6HPO [facility] Last Admin: 06/28/19 06:59 Dose: 20 gm Melatonin (Melatonin) 5 mg PO HS PRN PRN Reason: INSOMNIA Multivitamins/Minerals (Certavite-Antioxidant Liquid) 15 ml PO DAILY [facility] Last Admin: 06/28/19 10:47 Dose: 15 ml Multivitamins/Minerals (Infuvite Adult -) 10 ml IV DAILY [facility] Nadolol (Corgard -) 80 mg PO DAILY@0600 [facility] Last Admin: 06/28/19 06:58 Dose: 80 mg Rifaximin (Xifaxan -) 550 mg PO BID [facility] Last Admin: 06/28/19 10:47 Dose: 550 mg Spironolactone (Aldactone -) 25 mg PO DAILY [facility] Last Admin: 06/28/19 10:47 Dose: 25 mg Tamsulosin HCl (Flomax -) 0.4 mg PO DAILY@0830 [facility] Last Admin: 06/28/19 08:55 Dose: 0.4 mg - Objective Vital Signs: Vital Signs Temperature 97.5 F L 06/28/19 10:41 Pulse Rate 88 06/28/19 10:41 Respiratory Rate 20 06/28/19 10:41 Blood Pressure 127/76 06/28/19 10:41 O2 Sat by Pulse Oximetry (%) 93 L 06/27/19 22:00 Labs: CBC, BMP 06/27/19 14:06 06/28/19 08:40 INR, PTT INR 1.39 (0.83-1.09) H 06/26/19 07:30 Problem List - Problems (1) Urinary tract infection Assessment/Plan: iv abx ID on board Microbiology 06/26/19 07:30 Urine - Urine - Catheterized Urine Culture - Preliminary Group D Strep Or Entero Coccus 06/26/19 07:30 Blood - Peripheral Venous Blood Culture - Preliminary NO GROWTH OBTAINED AFTER 24 HOURS, INCUBATION TO CONTINUE FOR 4 DAYS. 06/26/19 07:15 Blood - Peripheral Venous Blood Culture - Preliminary Pending Organism Code(s): N39.0 - URINARY TRACT INFECTION, SITE NOT SPECIFIED Qualifiers: Urinary tract infection type: site unspecified Hematuria presence: without hematuria Qualified Code(s): N39.0 - Urinary tract infection, site not specified (2) Afib Assessment/Plan: nadolol 80 cardio NOTED dig QOD Code(s): I48.91 - UNSPECIFIED ATRIAL FIBRILLATION (3) CHF (congestive heart failure) Assessment/Plan: po lasix Code(s): I50.9 - HEART FAILURE, UNSPECIFIED Qualifiers: Heart failure type: unspecified Heart failure chronicity: acute on chronic Qualified Code(s): I50.9 - Heart failure, unspecified (4) COPD (chronic obstructive pulmonary disease) Code(s): J44.9 - CHRONIC OBSTRUCTIVE PULMONARY DISEASE, UNSPECIFIED (5) Positive blood culture Assessment/Plan: 06/26/19 07:15 Blood - Peripheral Venous Blood Culture - Preliminary Pending Organism iv vancomcyin Code(s): R78.81 - BACTEREMIA (6) Acquired thrombocytopenia Assessment/Plan: monitor platelets currently in 80K range Code(s): D69.59 - OTHER SECONDARY THROMBOCYTOPENIA (7) SOPHIE (acute kidney injury) Assessment/Plan: continue to monitor renal function lasix bid with aldactone Code(s): N17.9 - ACUTE KIDNEY FAILURE, UNSPECIFIED (8) Cirrhosis of liver Assessment/Plan: rifamixin lactulose nadolol aldactone multivitamins pills and iv Code(s): K74.60 - UNSPECIFIED CIRRHOSIS OF LIVER
[2019-06-28] MEDS ORDERED: ACETAMINOPHEN 325 MG TABLET (FP) PO PRN (12:03)
[2019-06-28] MEDS: AMMONIUM LACTATE 12% LOTION 225 GM BOTTLE TP SCH ×2 (12:20→22:10)
--- NOTE | 2019-06-28 13:48 | PN ---
Progress Note (short form) - Note Progress Note: alert requesting water Vital Signs Period Temp Pulse Resp BP Sys/Block Pulse Ox Last 24 Hr 97.3 F-98.1 F 88-108 18-20 100-127/48-76 93 scleral icterus cor-rrr lungs clear abd soft,nt ext no edema CBC, BMP 06/27/19 14:06 06/28/19 08:40 Microbiology 06/26/19 07:30 Urine - Urine - Catheterized Urine Culture - Final Enterococcus Faecalis 06/26/19 07:15 Blood - Peripheral Venous Blood Culture - Preliminary Staphylococcus Coagulase Neg 06/26/19 07:30 Blood - Peripheral Venous Blood Culture - Preliminary NO GROWTH OBTAINED AFTER 48 HOURS, INCUBATION TO CONTINUE FOR 3 DAYS. a/p enterococcal uti- switch to ampicillin -adjusted for ckd, no objection to switch to po amox when ready for discharge blood culture represent skin contaminant- no need to treat further liver cirrhosis with jaundice ckd
[2019-06-28 14:14] VITALS: BMI 28.5
[2019-06-28] MEDS: AMPICILLIN - 2 GM in SODIUM CHLORIDE 100 ML IVPB SCH (18:56)
[2019-06-29] MEDS: LACTULOSE 20 GM/30 ML UDC (FOR ORAL USE ONLY) PO SCH ×5 (01:10→23:30)
[2019-06-29] MEDS: AMPICILLIN - 2 GM in SODIUM CHLORIDE 100 ML IVPB SCH ×3 (01:55→17:17)
[2019-06-29] MEDS: FUROSEMIDE 40 MG TABLET (FP) PO SCH ×2 (07:03→14:28)
[2019-06-29] MEDS: NADOLOL 40 MG TABLET (FP) PO SCH (07:06)
[2019-06-29] MEDS: INSULIN SLIDING SCALE (NOVOLOG) 1 VIAL SQ SCH ×4 (07:12→23:30)
[2019-06-29] MEDS ORDERED: PT OWN MED DRAWER 7, Y5N ONE ×2 (09:05→17:14)
[2019-06-29] MEDS: SPIRONOLACTONE 25 MG TABLET (FP) PO SCH (09:29)
[2019-06-29] MEDS: RIFAXIMIN 550 MG TABLET (UD) PO SCH ×2 (09:29→23:31)
[2019-06-29] MEDS: TAMSULOSIN HCL 0.4 MG CAP PO SCH (09:29)
[2019-06-29] MEDS: AMMONIUM LACTATE 12% LOTION 225 GM BOTTLE TP SCH ×2 (09:30→23:31)
--- NOTE | 2019-06-29 12:14 | PN ---
Progress Note, Physician - Current Medication List Current Medications: Active Medications Acetaminophen (Tylenol -) 650 mg PO Q6H PRN PRN Reason: PAIN LEVEL 1-5 Albuterol Sulfate (Ventolin 0.083% Nebulizer Soln -) 1 amp NEB Q6H PRN PRN Reason: SHORT OF BREATH/WHEEZING Digoxin (Lanoxin -) 0.125 mg PO Q48H [facility] Last Admin: 06/28/19 06:58 Dose: 0.125 mg Furosemide (Lasix -) 100 mg PO BID@0600,1400 [facility] Last Admin: 06/29/19 07:03 Dose: 100 mg Ampicillin Sodium 2 gm/ Sodium (Chloride) 100 mls @ 200 mls/hr IVPB Q8H-IV [facility] ; Protocol Last Admin: 06/29/19 09:30 Dose: 200 mls/hr Insulin Aspart (Novolog Vial Sliding Scale -) 1 vial SQ ACHS [facility]; Protocol Last Admin: 06/29/19 07:12 Dose: 4 units Lactic Acid (Lac-Hydrin 12) 1 applic TP BID [facility] Last Admin: 06/29/19 09:30 Dose: 1 applic Lactulose (Cephulac (Oral Use)) 20 gm PO Q6HPO [facility] Last Admin: 06/29/19 07:03 Dose: 20 gm Melatonin (Melatonin) 5 mg PO HS PRN PRN Reason: INSOMNIA Multivitamins/Minerals (Certavite-Antioxidant Liquid) 15 ml PO DAILY [facility] Last Admin: 06/28/19 10:47 Dose: 15 ml Nadolol (Corgard -) 80 mg PO DAILY@0600 [facility] Last Admin: 06/29/19 07:06 Dose: 80 mg Rifaximin (Xifaxan -) 550 mg PO BID [facility] Last Admin: 06/29/19 09:29 Dose: 550 mg Spironolactone (Aldactone -) 25 mg PO DAILY [facility] Last Admin: 06/29/19 09:29 Dose: 25 mg Tamsulosin HCl (Flomax -) 0.4 mg PO DAILY@0830 [facility] Last Admin: 06/29/19 09:29 Dose: 0.4 mg - Objective Vital Signs: Vital Signs Temperature 97.4 F L 06/29/19 09:34 Pulse Rate 110 H 06/29/19 09:34 Respiratory Rate 20 06/29/19 09:34 Blood Pressure 102/64 06/29/19 09:34 O2 Sat by Pulse Oximetry (%) 96 06/28/19 22:00 Cardiovascular: Yes: S1, S2 Respiratory: Yes: Regular, CTA Bilaterally Gastrointestinal: Yes: Normal Bowel Sounds, Soft. No: Tenderness Edema: No Labs: CBC, BMP 06/27/19 14:06 06/28/19 08:40 INR, PTT INR 1.39 (0.83-1.09) H 06/26/19 07:30 Problem List - Problems (1) Urinary tract infection Assessment/Plan: iv abx--to po ID on board Microbiology 06/26/19 07:30 Urine - Urine - Catheterized Urine Culture - Preliminary Group D Strep Or Entero Coccus 06/26/19 07:30 Blood - Peripheral Venous Blood Culture - Preliminary NO GROWTH OBTAINED AFTER 24 HOURS, INCUBATION TO CONTINUE FOR 4 DAYS. 06/26/19 07:15 Blood - Peripheral Venous Blood Culture - Preliminary Pending Organism Code(s): N39.0 - URINARY TRACT INFECTION, SITE NOT SPECIFIED Qualifiers: Urinary tract infection type: site unspecified Hematuria presence: without hematuria Qualified Code(s): N39.0 - Urinary tract infection, site not specified (2) Afib Assessment/Plan: nadolol 80 cardio NOTED dig QOD Code(s): I48.91 - UNSPECIFIED ATRIAL FIBRILLATION (3) CHF (congestive heart failure) Assessment/Plan: po lasix Code(s): I50.9 - HEART FAILURE, UNSPECIFIED Qualifiers: Heart failure type: unspecified Heart failure chronicity: acute on chronic Qualified Code(s): I50.9 - Heart failure, unspecified (4) COPD (chronic obstructive pulmonary disease) Code(s): J44.9 - CHRONIC OBSTRUCTIVE PULMONARY DISEASE, UNSPECIFIED (5) Positive blood culture Assessment/Plan: Microbiology 06/28/19 08:51 Blood - Peripheral Venous Blood Culture - Preliminary NO GROWTH OBTAINED AFTER 24 HOURS, INCUBATION TO CONTINUE FOR 4 DAYS. 06/28/19 08:40 Blood - Peripheral Venous Blood Culture - Preliminary NO GROWTH OBTAINED AFTER 24 HOURS, INCUBATION TO CONTINUE FOR 4 DAYS. 06/26/19 07:30 Blood - Peripheral Venous Blood Culture - Preliminary NO GROWTH OBTAINED AFTER 72 HOURS, INCUBATION TO CONTINUE FOR 2 DAYS. 06/26/19 07:30 Urine - Urine - Catheterized Urine Culture - Final Enterococcus Faecalis 06/26/19 07:15 Blood - Peripheral Venous Blood Culture - Preliminary Staphylococcus Coagulase Neg Code(s): R78.81 - BACTEREMIA (6) Acquired thrombocytopenia Assessment/Plan: monitor platelets currently in 80K range Code(s): D69.59 - OTHER SECONDARY THROMBOCYTOPENIA (7) SOPHIE (acute kidney injury) Assessment/Plan: continue to monitor renal function lasix bid with aldactone Code(s): N17.9 - ACUTE KIDNEY FAILURE, UNSPECIFIED (8) Cirrhosis of liver Assessment/Plan: rifamixin lactulose nadolol aldactone multivitamins pills and iv Code(s): K74.60 - UNSPECIFIED CIRRHOSIS OF LIVER
--- NOTE | 2019-06-29 12:20 | DS ---
Physical Examination Vital Signs: Vital Signs Temperature 97.4 F L 06/29/19 09:34 Pulse Rate 110 H 06/29/19 09:34 Respiratory Rate 20 06/29/19 09:34 Blood Pressure 102/64 06/29/19 09:34 O2 Sat by Pulse Oximetry (%) 96 06/28/19 22:00 Labs: CBC, BMP 06/27/19 14:06 06/28/19 08:40 Discharge Summary Problems reviewed: Yes Reason For Visit: UTI Current Active Problems Positive blood culture (Acute) Urinary tract infection (Acute) Condition: Improved - Instructions Referrals: Nidhi Vargas MD [Primary Care Provider] - [facility] - Home Medications Comprehensive Discharge Medication List: Ambulatory Orders Tamsulosin HCl [Flomax] 0.4 mg PO DAILY 11/05/18 Ascorbate Calcium [Vitamin C] 500 mg PO DAILY 05/27/19 Albuterol 0.083% Nebulizer Patricia [Ventolin 0.083% Nebulizer Soln -] 1 amp NEB Q6H PRN amp 06/18/19 Ammonium Lactate Lotion [Lac-Hydrin 12] 1 applic TP BID bottle 06/18/19 Polyvinyl Alcohol [Artificial Tears] 1 drop OU Q12H PRN drops 06/18/19 Furosemide [Lasix -] 100 mg PO BID@0600,1400 tablet 06/24/19 Lactulose (Oral Use) [Cephulac -] 20 gm PO Q6HPO udc 06/24/19 Melatonin 5 mg PO HS PRN tab 06/24/19 Multivit-Minerals [Certavite-Antioxidant Liquid] 15 ml PO DAILY cup 06/24/19 Acetaminophen [Tylenol] 650 mg PO PRN 06/26/19 Insulin Lispro [Humalog Kwikpen U-100] 0 unit SQ DAILY 06/26/19 Rifaximin [Xifaxan] 550 mg PO BID 06/26/19 Spironolactone [Aldactone] 25 mg PO DAILY 06/26/19 Ampicillin Trihydrate 500 mg PO TID #21 capsule 06/29/19 Digoxin [Lanoxin -] 0.125 mg PO Q48H tablet 06/29/19 Nadolol [Corgard -] 80 mg PO DAILY@0600 tablet 06/29/19
[2019-06-29] MEDS ORDERED: INSULIN (NOVOLOG) ASPART 100 UNITS/ML 10ML VIAL ONE ×2 (12:25→19:49)
[2019-06-29] MEDS: MULTIVIT-MINERALS ORAL LIQUID PO SCH (13:45)
--- NOTE | 2019-06-29 20:24 | CONSULT ---
Consult Consult Specialty:: Endocrine Referred by:: Dr.Iyad Vargas Reason for Consultation:: Diabetes mellitus Type 2 - History of Present Illness Chief Complaint: high sugars History of Present Illness: 74 yo m w a pmh of DMT2,liver cirrhosis, esophageal varices (sp banding), CHF, COPD, CKD, and HTN who was admitted with a low platelet count. He was recently seen in our hospital on multiple episodes of hepatic encephalopathy, respiratory failure, CKD, and Altered mental status. He had required correction of elevated NH3 level,dehydration and lethargic state.He has had elevated blood sugars despite insulin dose titration. - Past Medical History Cardio/Vascular: Yes: CHF, HTN. No: AFIB, CAD Pulmonary: Yes: COPD Gastrointestinal: Yes: Esophageal Varices, Other (Hepatic encephalopathy) Hepatobiliary: Yes: Cirrhosis (Alcohol induced) Renal/: Yes: BPH Infectious Disease: Yes: Other (pneumonia) Endocrine: Yes: Diabetes Mellitus - Past Surgical History Past Surgical History: Yes: Hernia Repair, Upper Endoscopy - Alcohol/Substance Use Hx Alcohol Use: No History of Substance Use: reports: None, Cocaine (ex intranasal cocaine use) - Smoking History Smoking history: Never smoked Have you smoked in the past 12 months: Yes Aproximately how many cigarettes per day: 10 If you are a former smoker, when did you quit?: smokes daily - Social History Usual Living Arrangement: Alone ADL: Independent Occupation: son lives upstairs History of Recent Travel: No Home Medications - Allergies Allergies/Adverse Reactions: Allergies Allergy/AdvReac Type Severity Reaction Status Date / Time No Known Allergies Allergy Verified 06/26/19 06:52 - Home Medications Home Medications: Ambulatory Orders Tamsulosin HCl [Flomax] 0.4 mg PO DAILY 11/05/18 Ascorbate Calcium [Vitamin C] 500 mg PO DAILY 05/27/19 Albuterol 0.083% Nebulizer Patricia [Ventolin 0.083% Nebulizer Soln -] 1 amp NEB Q6H PRN amp 06/18/19 Ammonium Lactate Lotion [Lac-Hydrin 12] 1 applic TP BID bottle 06/18/19 Polyvinyl Alcohol [Artificial Tears] 1 drop OU Q12H PRN drops 06/18/19 Furosemide [Lasix -] 100 mg PO BID@0600,1400 tablet 06/24/19 Lactulose (Oral Use) [Cephulac -] 20 gm PO Q6HPO udc 06/24/19 Melatonin 5 mg PO HS PRN tab 06/24/19 Multivit-Minerals [Certavite-Antioxidant Liquid] 15 ml PO DAILY cup 06/24/19 Acetaminophen [Tylenol] 650 mg PO PRN 06/26/19 Insulin Lispro [Humalog Kwikpen U-100] 0 unit SQ DAILY 06/26/19 Rifaximin [Xifaxan] 550 mg PO BID 06/26/19 Spironolactone [Aldactone] 25 mg PO DAILY 06/26/19 Ampicillin Trihydrate 500 mg PO TID #21 capsule 06/29/19 Digoxin [Lanoxin -] 0.125 mg PO Q48H tablet 06/29/19 Nadolol [Corgard -] 80 mg PO DAILY@0600 tablet 06/29/19 Review of Systems - Review of Systems Constitutional: reports: Lethargy, Weakness Neck: reports: No Symptoms Cardiovascular: reports: Shortness of Breath Respiratory: reports: Exercise Intolerance Gastrointestinal: reports: Bloating, Nausea Physical Exam Vital Signs: Vital Signs Temperature 97.8 F 06/29/19 18:00 Pulse Rate 96 H 06/29/19 18:00 Respiratory Rate 20 06/29/19 18:00 Blood Pressure 104/66 06/29/19 18:00 O2 Sat by Pulse Oximetry (%) 96 06/28/19 22:00 Constitutional: Yes: Calm Eyes: Yes: EOM Intact HENT: Yes: Normocephalic Neck: Yes: Trachea Midline Respiratory: Yes: CTA Bilaterally Gastrointestinal: Yes: Normal Bowel Sounds ...Rectal Exam: Yes: Deferred Renal/: Yes: WNL Musculoskeletal: Yes: Back Pain, Joint Swelling, Muscle Pain, Muscle Weakness Extremities: Yes: Delayed Capillary Refill Edema: Yes Edema: LLE: Trace, RLE: Trace Neurological: Yes: Alert Labs: CBC, BMP 06/27/19 14:06 06/28/19 08:40 Problem List - Problems (1) Type 2 diabetes mellitus with diabetic nephropathy Problems reviewed: Yes Code(s): E11.21 - TYPE 2 DIABETES MELLITUS WITH DIABETIC NEPHROPATHY (2) Abscess Problems reviewed: Yes Code(s): L02.91 - CUTANEOUS ABSCESS, UNSPECIFIED (3) Acquired thrombocytopenia Problems reviewed: Yes Code(s): D69.59 - OTHER SECONDARY THROMBOCYTOPENIA (4) Acute on chronic respiratory failure with hypoxia and hypercapnia Problems reviewed: Yes Code(s): J96.21 - ACUTE AND CHRONIC RESPIRATORY FAILURE WITH HYPOXIA; J96.22 - ACUTE AND CHRONIC RESPIRATORY FAILURE WITH HYPERCAPNIA Assessment/Plan Current Active Problems DM T2,ckd diabetic neuropathy Encephalopathy Positive blood culture (Acute) Urinary tract infection (Acute) Laboratory Results - last 24 hr 06/28/19 06/29/19 06/29/19 22:05 07:11 12:22 POC Glucometer 309 242 282 06/29/19 16:57 POC Glucometer 277 Laboratory Tests 06/26/19 06/26/19 06/26/19 07:20 09:30 17:53 Sodium 146 H Potassium 3.9 Chloride 108 H Carbon Dioxide 32 Anion Gap 6 L BUN 42.1 H Creatinine 1.9 H Est GFR (CKD-EPI)AfAm 39.65 POC Glucometer 286 428 Random Glucose Ammonia 06/26/19 06/28/19 06/28/19 19:25 08:40 08:40 Sodium 144 Potassium 3.9 Chloride 106 Carbon Dioxide 30 Anion Gap 9 BUN 46.8 H Creatinine 1.8 H Est GFR (CKD-EPI)AfAm 42.33 POC Glucometer 423 Random Glucose 251 H Ammonia 82.80 H plan: levemir 15 units am bgm qid novolog scale ck hba1c tsh free t4
[2019-06-30 01:16] VITALS: TEMP 97.9
[2019-06-30] MEDS: AMPICILLIN - 2 GM in SODIUM CHLORIDE 100 ML IVPB SCH ×2 (02:36→10:44)
[2019-06-30 06:24] VITALS: BP 127/69
[2019-06-30] MEDS ORDERED: INSULIN (LEVEMIR) 100 UNITS/ML UNITS SQ SCH (07:00)
[2019-06-30] MEDS: FUROSEMIDE 40 MG TABLET (FP) PO SCH ×2 (07:01→13:16)
[2019-06-30] MEDS: NADOLOL 40 MG TABLET (FP) PO SCH (07:09)
[2019-06-30] MEDS: INSULIN SLIDING SCALE (NOVOLOG) 1 VIAL SQ SCH ×2 (07:14→11:46)
[2019-06-30] MEDS: LACTULOSE 20 GM/30 ML UDC (FOR ORAL USE ONLY) PO SCH ×2 (07:14→13:16)
[2019-06-30 07:17] VITALS: PULSE 109
[2019-06-30] MEDS: DIGOXIN 0.125 MG TABLET (FP) PO SCH (07:17)
[2019-06-30] MEDS ORDERED: PT OWN MED DRAWER 7, Y5N ONE (08:53)
[2019-06-30 09:01] LABS: BASO % 1.2 % (0-2.0); EOS % 6.7 % (0-4.5); HEMATOCRIT 31.1 % (35.4-49); HEMOGLOBIN 10.6 GM/dL (11.7-16.9); MCH 33.7 pg (25.7-33.7); MCHC 34.2 g/dl (32.0-35.9); MEAN CELL VOLUME 98.6 fl (80-96); MEAN PLT VOLUME 9.7 fl (7.5-11.1); MONO % 9.7 % (3.8-10.2); NEUT % 56.4 % (42.8-82.8); PLATELET COUNT 98 K/MM3 (134-434); RBC 3.16 M/mm3 (4.00-5.60); WHITE BLOOD COUNT 5.2 K/mm3 (4.0-10.0)
[2019-06-30] MEDS: RIFAXIMIN 550 MG TABLET (UD) PO SCH (09:10)
[2019-06-30] MEDS: SPIRONOLACTONE 25 MG TABLET (FP) PO SCH (09:10)
[2019-06-30] MEDS: TAMSULOSIN HCL 0.4 MG CAP PO SCH (09:10)
[2019-06-30 09:42] LABS: ALBUMIN 2.6 g/dl (3.4-5.0); BILIRUBIN,TOTAL 5.4 mg/dL (0.2-1); CALCIUM 8.8 mg/dL (8.5-10.1); CREATININE 1.9 mg/dL (0.55-1.3); MAGNESIUM 2.2 mg/dL (1.8-2.4); PHOSPHOROUS 3.1 mg/dL (2.5-4.9); POTASSIUM 3.8 mmol/L (3.5-5.1); TOT PROT 6.2 g/dl (6.4-8.2)
[2019-06-30] MEDS: AMMONIUM LACTATE 12% LOTION 225 GM BOTTLE TP SCH (10:07)
[2019-06-30] MEDS ORDERED: MULTIVIT INJ. ADULT COMBO WITH VIT K 1 COMBO 10 ML VIAL IV SCH ×2 (10:45)
[2019-06-30] MEDS ORDERED: MULTIVIT IV SCH (11:00)
[2019-06-30] MEDS ORDERED: SODIUM CHLORIDE IV SCH (11:00)
--- NOTE | 2019-06-30 11:11 | PN ---
Progress Note, Physician Chief Complaint: patient seen and examined sleeping but arousable and responds to him name able to tell me how he is doing spoke to his son in detail and explained to him the discharge plan labs note today T bili trending down and platelet count improving patient to get multivitamin infusion prior to discharge - Current Medication List Current Medications: Active Medications Acetaminophen (Tylenol -) 650 mg PO Q6H PRN PRN Reason: PAIN LEVEL 1-5 Albuterol Sulfate (Ventolin 0.083% Nebulizer Soln -) 1 amp NEB Q6H PRN PRN Reason: SHORT OF BREATH/WHEEZING Amino Acids (Prosource No Carb Liquid Pkt) 30 ml PO BID@0800,1730 [facility] Digoxin (Lanoxin -) 0.125 mg PO Q48H [facility] Last Admin: 06/30/19 07:17 Dose: 0.125 mg Furosemide (Lasix -) 100 mg PO BID@0600,1400 [facility] Last Admin: 06/30/19 07:01 Dose: 100 mg Ampicillin Sodium 2 gm/ Sodium (Chloride) 100 mls @ 200 mls/hr IVPB Q8H-IV [facility] ; Protocol Last Admin: 06/30/19 10:44 Dose: 200 mls/hr Multivitamins/Minerals 10 ml/ (Sodium Chloride) 1,010 mls @ 75 mls/hr IV DAILY [facility] Insulin Aspart (Novolog Vial Sliding Scale -) 1 vial SQ ACHS [facility]; Protocol Last Admin: 06/30/19 07:14 Dose: 4 units Insulin Detemir (Levemir Vial) 15 units SQ AM [facility] Last Admin: 06/30/19 07:15 Dose: 15 units Lactic Acid (Lac-Hydrin 12) 1 applic TP BID [facility] Last Admin: 06/30/19 10:07 Dose: 1 applic Lactulose (Cephulac (Oral Use)) 20 gm PO Q6HPO [facility] Last Admin: 06/30/19 07:14 Dose: 20 gm Melatonin (Melatonin) 5 mg PO HS PRN PRN Reason: INSOMNIA Nadolol (Corgard -) 80 mg PO DAILY@0600 [facility] Last Admin: 06/30/19 07:09 Dose: 80 mg Rifaximin (Xifaxan -) 550 mg PO BID [facility] Last Admin: 06/30/19 09:10 Dose: 550 mg Spironolactone (Aldactone -) 25 mg PO DAILY [facility] Last Admin: 06/30/19 09:10 Dose: 25 mg Tamsulosin HCl (Flomax -) 0.4 mg PO DAILY@0830 [facility] Last Admin: 06/30/19 09:10 Dose: 0.4 mg - Objective Vital Signs: Vital Signs Temperature 97.9 F 06/30/19 05:00 Pulse Rate 109 H 06/30/19 07:17 Respiratory Rate 20 06/30/19 05:00 Blood Pressure 127/69 06/30/19 05:00 O2 Sat by Pulse Oximetry (%) 96 06/29/19 21:00 Constitutional: Yes: Calm Eyes: Yes: Sclera Icterus Cardiovascular: Yes: Regular Rate and Rhythm, S1, S2 Respiratory: Yes: CTA Bilaterally, Diminished (at base) Gastrointestinal: Yes: Normal Bowel Sounds, Soft Edema: Yes (improved) Labs: CBC, BMP 06/30/19 08:00 06/30/19 08:00 INR, PTT INR 1.39 (0.83-1.09) H 06/26/19 07:30 Problem List - Problems (1) Urinary tract infection Assessment/Plan: iv abx ampicillin change to po amoxiccilin ID on board Microbiology 06/26/19 07:30 Urine - Urine - Catheterized Urine Culture - Preliminary Group D Strep Or Entero Coccus 06/26/19 07:30 Blood - Peripheral Venous Blood Culture - Preliminary NO GROWTH OBTAINED AFTER 24 HOURS, INCUBATION TO CONTINUE FOR 4 DAYS. 06/26/19 07:15 Blood - Peripheral Venous Blood Culture - Preliminary Pending Organism Code(s): N39.0 - URINARY TRACT INFECTION, SITE NOT SPECIFIED Qualifiers: Urinary tract infection type: site unspecified Hematuria presence: without hematuria Qualified Code(s): N39.0 - Urinary tract infection, site not specified (2) Acquired thrombocytopenia Assessment/Plan: monitor platelets currently 98K Code(s): D69.59 - OTHER SECONDARY THROMBOCYTOPENIA (3) Positive blood culture Assessment/Plan: Microbiology Microbiology 06/26/19 07:15 Blood - Peripheral Venous Blood Culture - Final Staphylococcus Epidermidis 06/28/19 08:51 Blood - Peripheral Venous Blood Culture - Preliminary NO GROWTH OBTAINED AFTER 48 HOURS, INCUBATION TO CONTINUE FOR 3 DAYS. 06/28/19 08:40 Blood - Peripheral Venous Blood Culture - Preliminary NO GROWTH OBTAINED AFTER 48 HOURS, INCUBATION TO CONTINUE FOR 3 DAYS. repeat culture negative Code(s): R78.81 - BACTEREMIA (4) Cirrhosis of liver Assessment/Plan: rifamixin lactulose nadolol aldactone multivitamins iv infusion Code(s): K74.60 - UNSPECIFIED CIRRHOSIS OF LIVER (5) SOPHIE (acute kidney injury) Assessment/Plan: continue to monitor renal function lasix bid with aldactone Code(s): N17.9 - ACUTE KIDNEY FAILURE, UNSPECIFIED (6) Paroxysmal A-fib Assessment/Plan: nadolol daily and digoxin every other day Code(s): I48.0 - PAROXYSMAL ATRIAL FIBRILLATION (7) Type 2 diabetes mellitus with diabetic nephropathy Assessment/Plan: seen by endocrine started on levemir 15 units in the AM Code(s): E11.21 - TYPE 2 DIABETES MELLITUS WITH DIABETIC NEPHROPATHY Assessment/Plan trasnfer to [facility] today
[2019-06-30] MEDS ORDERED: INSULIN (NOVOLOG) ASPART 100 UNITS/ML 10ML VIAL ONE (11:44)
--- NOTE | 2019-06-30 12:43 | PN ---
Progress Note (short form) - Note Progress Note: Renal follow up for SOPHIE/CKD Seen and examined at the bedside groggy but awakens to verbal stimuli remains confused for possible discharge today Vital Signs Temperature 97.9 F 06/30/19 05:00 Pulse Rate 109 H 06/30/19 07:17 Respiratory Rate 20 06/30/19 05:00 Blood Pressure 127/69 06/30/19 05:00 O2 Sat by Pulse Oximetry (%) 96 06/29/19 21:00 Intake & Output 06/27/19 06/28/19 06/29/19 06/30/19 23:59 23:59 23:59 23:59 Intake Total 280 150 550 100 Output Total 900 Balance -620 150 550 100 Weight 100.698 kg NAD awake and alert neck supple, no JVD RRR Dec BS at lung bases soft, NT/ND,some ascities CBC, BMP 06/30/19 08:00 06/30/19 08:00 Current Medications Acetaminophen (Tylenol -) 650 mg PO Q6H PRN PRN Reason: PAIN LEVEL 1-5 Albuterol Sulfate (Ventolin 0.083% Nebulizer Soln -) 1 amp NEB Q6H PRN PRN Reason: SHORT OF BREATH/WHEEZING Amino Acids (Prosource No Carb Liquid Pkt) 30 ml PO BID@0800,1730 [facility] Digoxin (Lanoxin -) 0.125 mg PO Q48H [facility] Last Admin: 06/30/19 07:17 Dose: 0.125 mg Furosemide (Lasix -) 100 mg PO BID@0600,1400 [facility] Last Admin: 06/30/19 07:01 Dose: 100 mg Ampicillin Sodium 2 gm/ Sodium (Chloride) 100 mls @ 200 mls/hr IVPB Q8H-IV [facility] ; Protocol Last Admin: 06/30/19 10:44 Dose: 200 mls/hr Multivitamins/Minerals 10 ml/ (Sodium Chloride) 1,010 mls @ 75 mls/hr IV DAILY [facility] Insulin Aspart (Novolog Vial Sliding Scale -) 1 vial SQ ACHS [facility]; Protocol Last Admin: 06/30/19 11:46 Dose: 6 units Insulin Detemir (Levemir Vial) 15 units SQ AM [facility] Last Admin: 06/30/19 07:15 Dose: 15 units Lactic Acid (Lac-Hydrin 12) 1 applic TP BID [facility] Last Admin: 06/30/19 10:07 Dose: 1 applic Lactulose (Cephulac (Oral Use)) 20 gm PO Q6HPO [facility] Last Admin: 06/30/19 07:14 Dose: 20 gm Melatonin (Melatonin) 5 mg PO HS PRN PRN Reason: INSOMNIA Nadolol (Corgard -) 80 mg PO DAILY@0600 [facility] Last Admin: 06/30/19 07:09 Dose: 80 mg Rifaximin (Xifaxan -) 550 mg PO BID [facility] Last Admin: 06/30/19 09:10 Dose: 550 mg Spironolactone (Aldactone -) 25 mg PO DAILY [facility] Last Admin: 06/30/19 09:10 Dose: 25 mg Tamsulosin HCl (Flomax -) 0.4 mg PO DAILY@0830 [facility] Last Admin: 06/30/19 09:10 Dose: 0.4 mg 74 year old gentleman with alcoholic cirrhosis, CHF, SOPHIE/CKD, DM who presented from [place] with low platelet counts and noted to have AMS and elevated Cr. 1. SOPHIE, now possibly CKD 2. Thrombocytopenia in setting of liver disease 3. Hepatic encephalopathy 4. Alcoholic cirrhosis Renal function remain stable Continue Lasix 100mg BID and Aldactone daily for fluid management Would check CMP once weekly as an outpatient continue lactulose for management of encephlopathy continue supportive care Thank you Ang Sanchez DO
[2019-06-30] MEDS ORDERED: FOLIC ACID INJECTION - 1 MG, THIAMINE HCL 100 MG, MULTIVIT INJECTION ADULT 10 ML in SOD... IVPB ONE (13:01)
[2019-06-30] MEDS: MULTIVIT INJ. ADULT COMBO WITH VIT K 1 COMBO 10 ML VIAL IV SCH (13:28)
[2019-06-30] MEDS ORDERED: AMINO ACIDS/PROTEIN HYDROLYS 30 ML LIQUID.PKT PO SCH (17:30)
[2019-07-01] MEDS ORDERED: MULTIVIT INJ. ADULT COMBO WITH VIT K 1 COMBO 10 ML VIAL IV SCH (10:00)
== END 2019-06-30 16:19 | DRG 813 ==
LOC: SUPCPDRO 06:07 → JER 06:07 → JERBED 10:23 → J5S 12:14
PROVIDERS: ADMIT Family Medicine; ATTEND Family Medicine
DX: D69.6 Thrombocytopenia, unspecified (principal); J98.11 Atelectasis; N17.9 Acute kidney failure, unspecified; N39.0 Urinary tract infection, site not specified; I13.0 Hypertensive heart and chronic kidney disease with heart failure and stage 1 through stage 4 chronic kidney disease, or unspecified chronic kidney disease; I50.32 Chronic diastolic (congestive) heart failure; E87.2 Acidosis; I85.00 Esophageal varices without bleeding; R78.81 Bacteremia; K72.10 Chronic hepatic failure without coma; K70.30 Alcoholic cirrhosis of liver without ascites; R79.89 Other specified abnormal findings of blood chemistry; B95.2 Enterococcus as the cause of diseases classified elsewhere; I48.91 Unspecified atrial fibrillation; J44.9 Chronic obstructive pulmonary disease, unspecified; E11.22 Type 2 diabetes mellitus with diabetic chronic kidney disease; N18.9 Chronic kidney disease, unspecified; D73.1 Hypersplenism; K72.90 Hepatic failure, unspecified without coma; I50.9 Heart failure, unspecified; E66.9 Obesity, unspecified; Z68.28 Body mass index [BMI] 28.0-28.9, adult; N40.0 Benign prostatic hyperplasia without lower urinary tract symptoms; R41.82 Altered mental status, unspecified
CPT/HCPCS: 36415; 70450-TC; 71045-TC-FY; 80053; 81003; 82140; 82803; 82962; 83036; 83605; 83735; 84100; 84443; 85025; 85610; 85730; 86850; 86870; 86900; 86901; 86902; 87040; 87086; 87186; 93005; 93010; 99284-25; G0480; J3243; J7030